=== PATIENT | male | born 1950 | race Caucasian/White ===

== ENCOUNTER 2016-11-20 13:42 | Inpatient (IN) | payer OTHER, MEDICARE ==
[2016-11-20] MEDS ORDERED: MORPHINE SULFATE 4 MG/ML SYRINGE IV STA (14:05)
[2016-11-20] MEDS ORDERED: ASPIRIN 81 MG CHEW PO STA (14:12)
--- NOTE | 2016-11-20 14:12 | ED ---
Chest Pain HPI - General Chief Complaint: Chest Pain Stated Complaint: Chest Pain Time Seen by Provider: 11/20/16 13:56 Source: patient Mode of arrival: wheelchair Limitations: no limitations - History of Present Illness Initial Comments: Patient complains of chest pain. The pain is primarily in the center of the chest and wraps around his chest like a band tightening around him. The pain also radiates to the left arm. Patient was given aspirin and nitro prior to arrival with no change in his symptoms. He rates the pain 6/10. He has no nausea, vomiting. He does have shortness of breath. He has no pain or swelling the legs. He has no palpitations. He denies any recent long plane or cards. He has not traveled anywhere. He has no headache. He has no lightheadedness or dizziness. He has had no syncopal or presyncope episodes. - Related Data Home Medications Medication Instructions Recorded Confirmed ARIPiprazole [Abilify] 5 mg PO DAILY 11/03/14 11/20/16 Citalopram Hydrobromide 40 mg PO DAILY 11/03/14 11/20/16 [Citalopram HBr] Saxagliptin HCl [Onglyza] 5 mg PO DAILY 11/03/14 11/20/16 metFORMIN HCL 1,000 mg PO BID 11/03/14 11/20/16 Ascorbic Acid [Vitamin C] 500 mg PO DAILY 01/17/16 11/20/16 Cholecalciferol [Vitamin D3] 2,000 unit PO DAILY 01/17/16 11/20/16 Gemfibrozil [Lopid] 600 mg PO AC-BID 01/17/16 11/20/16 Insulin Detemir [Levemir] 75 unit SQ BID 01/17/16 11/20/16 Atorvastatin [Lipitor] 40 mg PO HS 07/02/16 11/20/16 HYDROcodone/APAP 7.5-325MG [[place] 1 tab PO Q8H PRN 07/02/16 11/20/16 7.5-325] Lisinopril [Zestril] 10 mg PO BID 07/02/16 11/20/16 Metoprolol Tartrate [Lopressor] 25 mg PO BID 07/02/16 11/20/16 [place]-3 Fatty Acids/Fish Oil [Fish 1 cap PO DAILY 07/02/16 11/20/16 Oil 1,000 mg Softgel] Prazosin HCl 2 mg PO HS 07/02/16 11/20/16 Ticagrelor [Brilinta] 90 mg PO BID 07/02/16 11/20/16 traZODone HCL 150 mg PO HS 07/02/16 11/20/16 Aspirin EC [Ecotrin Low Dose] 81 mg PO DAILY 11/20/16 11/20/16 Bisoprolol Fumarate [Zebeta] 5 mg PO DAILY 11/20/16 11/20/16 Budesonide/Formoterol Fumarate 2 puff INHALATION BID 11/20/16 11/20/16 [Symbicort 80-4.5 Mcg Inhaler] Colchicine 0.6 mg PO DAILY 11/20/16 11/20/16 Hydrochlorothiazide [Hydrodiuril] 25 mg PO HS 11/20/16 11/20/16 Insulin Aspart [NovoLOG] 10 - 12 unit SQ AC-TID 11/20/16 11/20/16 Isosorbide Mononitrate ER [Imdur] 30 mg PO DAILY 11/20/16 11/20/16 Montelukast [Singulair] 10 mg PO HS 11/20/16 11/20/16 Allergies Allergy/AdvReac Type Severity Reaction Status Date / Time No Known Allergies Allergy Verified 11/20/16 14:27 Review of Systems ROS Statement: Those systems with pertinent positive or pertinent negative responses have been documented in the HPI. ROS Other: All systems not noted in ROS Statement are negative. EKG Findings - EKG Comments: EKG Findings:: Twelve-lead EKG obtained interpreted by me as showing ventricular rate 71 bpm, normal AR interval and QRS complex is, no ST elevation or depression, interpreted by me as normal sinus rhythm. Past Medical History Past Medical History: Diabetes Mellitus, Hypertension, Myocardial Infarction ([place] ), Sleep Apnea/CPAP/BIPAP, Syncope Additional Past Medical History / Comment(s): sleep apnea with CPAP History of Any Multi-Drug Resistant Organisms: None Reported Past Surgical History: Heart Catheterization With Stent, Hernia Repair, Orthopedic Surgery, Tonsillectomy Additional Past Surgical History / Comment(s): eye lid, pioniel cyst, lasik, bilateral knee sx Past Anesthesia/Blood Transfusion Reactions: No Reported Reaction Past Psychological History: Bipolar, Depression Smoking Status: Former smoker Past Alcohol Use History: None Reported Additional Past Alcohol Use History / Comment(s): smoking: started 1966 stopped 11/17, 1ppd Past Drug Use History: None Reported - Past Family History Mother Family Medical History: Coronary Artery Disease (CAD) Father Family Medical History: Coronary Artery Disease (CAD) Additional Family Medical History / Comment(s): emphysema General Exam Limitations: no limitations General appearance: alert, in no apparent distress Head exam: Present: atraumatic, normocephalic, normal inspection Eye exam: Present: normal appearance, PERRL, EOMI. Absent: scleral icterus, conjunctival injection, periorbital swelling ENT exam: Present: normal exam, mucous membranes moist Neck exam: Present: normal inspection. Absent: tenderness, meningismus, lymphadenopathy Respiratory exam: Present: normal lung sounds bilaterally. Absent: respiratory distress, wheezes, rales, rhonchi, stridor Cardiovascular Exam: Present: regular rate, normal rhythm, normal heart sounds. Absent: systolic murmur, diastolic murmur, rubs, gallop, clicks GI/Abdominal exam: Present: soft, tenderness, normal bowel sounds. Absent: distended, guarding, rebound, rigid Extremities exam: Present: normal inspection, full ROM, normal capillary refill. Absent: tenderness, pedal edema, joint swelling, calf tenderness Back exam: Present: normal inspection Neurological exam: Present: alert, oriented X3, CN II-XII intact Psychiatric exam: Present: normal affect, normal mood Skin exam: Present: warm, dry, intact, normal color. Absent: rash Course Vital Signs 11/20/16 11/20/16 11/20/16 13:45 14:19 15:13 Temperature 96.9 F L Pulse Rate 79 76 74 Respiratory 18 17 17 Rate Blood Pressure 161/77 167/79 170/72 O2 Sat by Pulse 98 98 Oximetry Chest Pain MDM - [facility] Patient complains of chest pain. On examination he has some mild abdominal tenderness. I wrote her studies reveal a negative troponin, however he does have an elevated lipase. Patient will be admitted to the hospital. Disposition Clinical Impression: Pancreatitis Disposition: ADMITTED IP TO THIS [facility] Condition: Fair Time of Disposition: 16:26
[2016-11-20 14:25] LABS: Basophils % (A) 1 %; CHCM 34.4; Eosinophils # (A) 0.2 k/uL (0-0.7); Eosinophils % (A) 3 %; HCT 31.7 % (39.0-53.0); HDW 2.91; HGB 10.4 gm/dL (13.0-17.5); Luc # (Auto) 0.22; Luc % (Auto) 4; Lymphocytes # (A) 1.2 k/uL (1.0-4.8); Lymphocytes % (A) 19 %; MCH 28.7 pg (25.0-35.0); MCHC 32.7 g/dL (31.0-37.0); MCV 87.7 fL (80.0-100.0); Monocytes # (A) 0.6 k/uL (0-1.0); Monocytes % (A) 10 %; Neutrophils # (A) 3.9 k/uL (1.3-7.7); Neutrophils % (A) 63 %; RBC 3.62 m/uL (4.30-5.90); RDW 13.7 % (11.5-15.5); WBC 6.1 k/uL (3.8-10.6); WBC (Perox) 6.22
[2016-11-20 14:37] LABS: ALT 53 U/L (21-72); AST 35 U/L (17-59); Alkaline Phosphatase 139 U/L (38-126); Anion Gap 15 mmol/L; Blood Urea Nitrogen 23 mg/dL (9-20); Calcium 9.7 mg/dL (8.4-10.2); Carbon Dioxide 21 mmol/L (22-30); Chloride 104 mmol/L (98-107); Glucose 169 mg/dL (74-99); Magnesium 1.3 mg/dL (1.6-2.3); Non-African American GFR(MDRD) >60 (>60 ml/min/1.73 sqM); Potassium 4.4 mmol/L (3.5-5.1); Sodium 140 mmol/L (137-145); Total Bilirubin 0.5 mg/dL (0.2-1.3); Total Protein 7.5 g/dL (6.3-8.2)
[2016-11-20 14:39] LABS: Partial Thromboplastin Time 24.2 sec (22.0-30.0); Prothrombin Time 10.2 sec (9.0-12.0)
--- NOTE | 2016-11-20 14:55 | XR ---
EXAMINATION TYPE: XR chest 2V DATE OF EXAM: 11/20/2016 2:43 PM COMPARISON: 08/08/2016 HISTORY: Shortness of breath TECHNIQUE: Frontal and lateral views of the chest are obtained. FINDINGS: Scattered senescent parenchymal changes noted. Hyperinflation compatible with COPD. No evidence for infiltrate. No evidence for atelectasis. Heart size is stable. Mediastinal structures are stable and grossly unremarkable. No evidence for hilar prominence. Degenerative changes dorsal spine. IMPRESSION: 1. No evidence for acute pulmonary disease.
[2016-11-20] MEDS ORDERED: ONDANSETRON 4 MG/2 ML VIAL IVP PRN (16:26)
[2016-11-20] MEDS ORDERED: NALOXONE 0.4 MG/ML 1 ML VIAL IV PRN (16:26)
[2016-11-20] MEDS ORDERED: MORPHINE SULFATE 4 MG/ML SYRINGE IV PRN (16:26)
[2016-11-20] MEDS: SODIUM CHLORIDE 0.9% 1,000 ML IV SCH ×2 (16:52→23:40)
--- NOTE | 2016-11-20 18:11 | CT ---
EXAMINATION TYPE: CT abdomen pelvis w con DATE OF EXAM: 11/20/2016 5:12 PM COMPARISON: November 03, 2014 HISTORY: Pt states of abdominal pain today. CT DLP: 1609.2 mGycm Automated exposure control for dose reduction was used. TECHNIQUE: Helical acquisition of images was performed from the lung bases through the pelvis. CONTRAST: Performed without Oral Contrast and with IV Contrast, patient injected with 100 mL of Omnipaque 300. FINDINGS: LUNG BASES: No significant abnormality is appreciated. LIVER/GB: No significant abnormality is appreciated, but cholelithiasis is noted. PANCREAS: No significant abnormality is seen. SPLEEN: No significant abnormality is seen. ADRENALS: No significant abnormality is seen. KIDNEYS: There are bilateral 1 to 4 mm nonobstructing calcifications within the upper collecting syst ems. No significant renal abnormality is seen. RETROPERITONEAL ADENOPATHY: None visualized REPRODUCTIVE ORGANS: No significant abnormality is seen URINARY BLADDER: No significant abnormality is seen. PELVIC ADENOPATHY: None visualized. OSSEOUS STRUCTURES: No significant abnormality is seen. BOWEL: No significant abnormality is seen. Colonic diverticulosis noted, but no diverticulitis. OTHER: Coronary calcifications are noted. IMPRESSION: NO ACUTE PROCESS, CT ABDOMEN AND PELVIS WITH CONTRAST.
[2016-11-20] MEDS ORDERED: INSULIN LISPRO (humaLOG) 300 UNIT/3 ML VIAL SQ ONE (18:12)
[2016-11-20 18:13] LABS: Glucose,Whole Blood 155 mg/dL (75-99)
[2016-11-20] MEDS: GEMFIBROZIL 600 MG TAB PO SCH (19:38)
[2016-11-20] MEDS: SYMBICORT 80-4.5 MCG INHALER INHALATION SCH (19:53)
[2016-11-20 21:38] LABS: Glucose,Whole Blood 213 mg/dL (75-99)
[2016-11-20] MEDS: FAMOTIDINE 20 MG TAB PO SCH (21:47)
[2016-11-20] MEDS: HYDROCHLOROTHIAZIDE 25 MG TAB PO SCH (21:47)
[2016-11-20] MEDS: TICAGRELOR 90 MG TAB PO SCH (21:47)
[2016-11-20] MEDS: PRAZOSIN 1 MG CAP PO SCH (21:47)
[2016-11-20] MEDS: metFORMIN 500 MG TAB PO SCH (21:47)
[2016-11-20] MEDS: INSULIN DETEMIR 100 UNIT/ML 10 ML VIAL SQ SCH (21:48)
[2016-11-20] MEDS: METOPROLOL TARTRATE 25 MG TAB PO SCH (21:48)
[2016-11-20] MEDS: LISINOPRIL 10 MG TAB PO SCH (21:48)
[2016-11-20] MEDS: INSULIN LISPRO (humaLOG) 300 UNIT/3 ML VIAL SQ SCH (21:48)
[2016-11-20] MEDS: MONTELUKAST 10 MG TAB PO SCH (21:48)
[2016-11-20] MEDS ORDERED: HYDROcodone/APAP 7.5-325MG 1 EACH TAB PO PRN (22:20)
[2016-11-20] MEDS: traZODone HCL 50 MG TAB PO SCH (22:45)
[2016-11-20] MEDS: ATORVASTATIN 40 MG TAB PO SCH (22:45)
[2016-11-20 23:10] LABS: Hemoglobin A1C 8.2 % (4.2-6.1)
[2016-11-21 07:01] LABS: Glucose,Whole Blood 134 mg/dL (75-99)
--- NOTE | 2016-11-21 08:32 | US ---
EXAMINATION TYPE: US gallbladder DATE OF EXAM: 11/21/2016 8:00 AM COMPARISON: NONE CLINICAL HISTORY: pancreatitis. Chest pain EXAM MEASUREMENTS: Liver Length: 19.5 cm Gallbladder Wall: 0.2 cm CBD: 0.4 cm Right Kidney: 13.6 x 6.5 x 7.2 cm TECHNOLOGIST IMPRESSION: Enlarged, echogenic, attenuating liver; polyps and a stone seen in gallblad otoniel. Pancreas: not well defined Liver: enlarged, echogenic, attenuating Gallbladder: 2 small polyps seen, stone in neck Evidence for sonographic Roy's sign: yes CBD: wnl Right Kidney: No hydronephrosis or masses seen IMPRESSION: 1. Hepatomegaly and fatty infiltration of the liver. 2. Cholelithiasis and polyps within the gallbladder. 3. Echogenic pancreas may reflect fatty infiltration.
[2016-11-21] MEDS: INSULIN LISPRO (humaLOG) 300 UNIT/3 ML VIAL SQ SCH ×4 (08:45→22:15)
[2016-11-21] MEDS: metFORMIN 500 MG TAB PO SCH ×2 (08:49→22:15)
[2016-11-21] MEDS: LISINOPRIL 10 MG TAB PO SCH ×2 (08:49→22:15)
[2016-11-21] MEDS: METOPROLOL TARTRATE 25 MG TAB PO SCH ×2 (08:49→22:16)
[2016-11-21] MEDS: GEMFIBROZIL 600 MG TAB PO SCH ×2 (08:49→17:45)
[2016-11-21] MEDS: CHOLECALCIFEROL 1,000 UNIT TAB PO SCH (08:49)
[2016-11-21] MEDS: COLCHICINE 0.6 MG TAB PO SCH (08:49)
[2016-11-21] MEDS: BISOPROLOL 5 MG TAB PO SCH (08:49)
[2016-11-21] MEDS: ASCORBIC ACID 500 MG TAB PO SCH (08:50)
[2016-11-21] MEDS: CITALOPRAM HYDROBROMIDE 20 MG TAB PO SCH (08:50)
[2016-11-21] MEDS: LINAGLIPTIN 5 MG TABLET PO SCH (08:50)
[2016-11-21] MEDS: ARIPiprazole 5 MG TAB PO SCH (08:50)
[2016-11-21] MEDS: TICAGRELOR 90 MG TAB PO SCH ×2 (08:50→22:16)
[2016-11-21] MEDS: FAMOTIDINE 20 MG TAB PO SCH ×2 (08:50→22:14)
[2016-11-21] MEDS: ASPIRIN 81 MG CHEW PO SCH (08:50)
[2016-11-21 08:53] LABS: Basophils % (A) 1 %; CH 29.5; CHCM 33.6; Eosinophils # (A) 0.2 k/uL (0-0.7); Eosinophils % (A) 4 %; HDW 2.89; HGB 10.7 gm/dL (13.0-17.5); Luc % (Auto) 4; Lymphocytes # (A) 0.9 k/uL (1.0-4.8); Lymphocytes % (A) 17 %; MCH 28.7 pg (25.0-35.0); MCHC 32.5 g/dL (31.0-37.0); MCV 88.2 fL (80.0-100.0); Mean Platelet Volume 6.8; Monocytes # (A) 0.5 k/uL (0-1.0); Monocytes % (A) 9 %; Neutrophils # (A) 3.5 k/uL (1.3-7.7); Neutrophils % (A) 66 %; RBC 3.74 m/uL (4.30-5.90); RDW 13.5 % (11.5-15.5); WBC 5.4 k/uL (3.8-10.6); WBC (Perox) 5.81
[2016-11-21] MEDS: INSULIN DETEMIR 100 UNIT/ML 10 ML VIAL SQ SCH ×2 (08:57→22:14)
[2016-11-21] MEDS ORDERED: ISOSORBIDE MONONITRATE ER 30 MG TAB.ER.24H PO SCH (09:00)
[2016-11-21 09:15] LABS: ALT 54 U/L (21-72); AST 31 U/L (17-59); Alkaline Phosphatase 83 U/L (38-126); Anion Gap 12 mmol/L; Blood Urea Nitrogen 20 mg/dL (9-20); Calcium 9.6 mg/dL (8.4-10.2); Carbon Dioxide 23 mmol/L (22-30); Chloride 108 mmol/L (98-107); Glucose 140 mg/dL (74-99); Non-African American GFR(MDRD) >60 (>60 ml/min/1.73 sqM); Potassium 4.3 mmol/L (3.5-5.1); Sodium 143 mmol/L (137-145); Total Bilirubin 0.3 mg/dL (0.2-1.3)
--- NOTE | 2016-11-21 09:39 | HP ---
DATE OF ADMISSION: 11/20/2016 DATE OF SERVICE: 11/20/2016 CHIEF COMPLAINT: Chest pain and abdominal pain. HISTORY OF PRESENT ILLNESS: This 66-year-old gentleman with a past medical history of multiple medical problems including atrial fibrillation, coronary artery disease, COPD, diabetes mellitus, hypertension, history of sleep apnea, history of coronary artery disease and stent and bipolar depression, being followed by Dr. Coby Fuentes in [place] in [place] and Dr. Fierro in the outpatient setting is complaining of abdominal pain just felt in the mid-part of the abdomen, which is radiating to the back. Patient also complains of chest pain, which is wrapping around the chest and like a band tightening and the pain was 6/10 in intensity. Patient came to [facility] and admitted for further evaluation and treatment. There is no history of any fever, rigors. No history of headache, loss of consciousness or seizures. PAST MEDICAL HISTORY: Atrial fibrillation, CAD, COPD, diabetes mellitus type 2, hypertension, pneumonia, sleep apnea, syncope, CAD, stent, bipolar, depression. Medications prior to admission include home medications are: 1. Symbicort 2 puffs b.i.d. 2. Trazodone 150 mg q.h.s. 3. Metformin 1000 mg p.o. b.i.d. 4. Brilinta 90 mg p.o. b.i.d. 5. Onglyza 5 mg p.o. daily. 6. Prazosin 2 mg p.o. q.h.s. 7. Fish oil 1 p.o. daily. 8. Singulair 10 mg q.h.s. 9. Lopressor 25 mg b.i.d. 10. Zestril 10 mg b.i.d. 11. Imdur 30 mg daily. 12. Levemir 75 mg subcu b.i.d. 13. NovoLog 10 to 12 subcu t.i.d. 14. HydroDIURIL 25 mg q.h.s. 15. [place] 7.5 q.8 p.r.n. 16. Lopid 600 mg a.c. b.i.d. 17. Colchicine 0.6 daily. 18. Celexa 40 mg p.o. daily. 19. Vitamin D3 2000 daily. 20. Zebeta 5 mg p.o. daily. 21. Lipitor 40 mg q.h.s. 23. Vitamin C 500 mg p.o. daily. ALLERGIES: None. FAMILY HISTORY: History of coronary artery disease and emphysema in the family. SOCIAL HISTORY: Previous history of smoking. No history of current smoking or alcohol. REVIEW OF SYSTEMS: ENT: No diminished hearing or vision. CARDIOVASCULAR: As mentioned earlier. RESPIRATORY: No cough or hemoptysis. GI: As mentioned earlier. : No dysuria. NERVOUS SYSTEM: No numbness or weakness. ALLERGY/IMMUNOLOGY: No asthma or hayfever. MUSCULOSKELETAL: As mentioned earlier. HEMATOLOGY/ONCOLOGY: No history of anemia. ENDOCRINE: History of diabetes mellitus. CONSTITUTIONAL: As mentioned earlier. DERMATOLOGY: Negative. RHEUMATOLOGY: Negative. PSYCHIATRY: As mentioned earlier. PHYSICAL EXAMINATION: Alert and oriented x3. Pulse 79, blood pressure 183/86, respiratory rate 18, temperature 96.1, pulse ox 96% on 2 liters. HEENT: Conjunctivae normal. Oral mucosa moist. NECK: No jugular venous distention. No carotid bruit. No lymph node enlargement. CARDIOVASCULAR: S1 and S2 heard. No S3, no S4. RESPIRATORY: Breath sounds diminished at the bases. No rhonchi, no crackles. ABDOMEN: Soft, obese, mild diffuse tenderness on palpation. No guarding or rigidity. Bowel sounds present. No ascites. No hepatosplenomegaly. LEGS: No edema, no swelling. NERVOUS SYSTEM: Higher function as mentioned earlier. Moves all four limbs. No focal motor deficits. LYMPHATIC: No lymphadenopathy in the neck, axillae or groin. SKIN: No ulcer, rash or bleeding. LABS: WBC 6.1, hemoglobin 10.4, BUN is 10, glucose 155, alk phos 139, lipase 1000 and. ASSESSMENT: 1. Abdominal pain, chest pain for evaluation, rule out acute pancreatitis. 2. Rule out acute coronary artery disease. 3. Hypomagnesemia. 4. Anemia, normocytic, anemia of chronic disease. 5. Obesity, body mass index of 33.6. 6. Atrial fibrillation. 7. Coronary artery disease. 8. Chronic obstructive pulmonary disease. 9. Diabetes mellitus type 2. 10. Hypertension. 11. History of pneumonia. 12. History of sleep apnea. 13. Syncope. 14. History of nephrolithiasis. 15. History of gout. 16. History of coronary artery disease and stent. 17. Bipolar depression. 18. Remote history nicotine dependence. 19. FULL CODE. RECOMMENDATIONS AND DISCUSSION: In this 66-year-old gentleman who presented with multiple complex medical issues, will monitor the patient closely. Continue the current medications. I will add amylase to the current regimen. I would also get a gastroenterology and cardiology consultations. EKG is reviewed. CT scan showed no acute process. The overall prognosis is guarded because of multiple complex medical issues as described earlier. Further recommendations to follow. EKG showed normal sinus rhythm with no other acute abnormalities suggestive of acute coronary syndrome. Will resume the home medications as well. SHANNEN
[2016-11-21] MEDS: SYMBICORT 80-4.5 MCG INHALER INHALATION SCH ×2 (09:42→20:23)
[2016-11-21 12:11] LABS: Glucose,Whole Blood 126 mg/dL (75-99)
[2016-11-21] MEDS: SODIUM CHLORIDE 0.9% 1,000 ML IV SCH ×3 (12:11→22:39)
[2016-11-21] MEDS ORDERED: ISOSORBIDE MONONITRATE ER 60 MG TAB.ER.24H PO STA (12:29)
--- NOTE | 2016-11-21 13:42 | P.CONS ---
History of Present Illness - Reason for Consult Consult date: 11/21/16 Pancreatitis Requesting physician: José Miguel Sauceda - History of Present Illness 66-year-old gentleman patient of Dr. Fierro with a past medical history of bipolar disorder, atrial fibrillation maintained on Brilinta and baby ASA, CAD, COPD, diabetes, hypertension, sleep apnea, nephrolithiasis, depression, shingles , and suicidal ideations. Consultation requested for pancreatitis. Presents with mid sternal/epigastric sharp pressure-like pain radiating to the bilateral abdomen wrapping around his upper back that started yesterday while he was attending cardiac rehab. He has had multiple episodes of this type of pain on- and-off for the last several months. Denies fever, chills, change in color of his urine or stool. No weight loss. Denies hematemesis, hematochezia, or melena. No history of alcoholism, hepatitis, or pancreatitis. Recently placed on Singulair and a different inhaler. CT abdomen and pelvis reported no acute process. Ultrasound abdomen reported enlarged echogenic attenuating liver with gallbladder polyps and stone gallbladder neck. CBD within normal limits. Echogenic pancreas may reflect fatty infiltration. White count 6.1. Hemoglobin 10.4. INR 1.0. Lipase 1000 currently 335. Amylase 89. LFTs total bilirubin normal. Review of Systems Constitutional: Denies fever, chills, sweats, weight gain, or loss. HEENT: Negative for migraines, blurred vision or loss, earaches, drainage, tinnitus, oral mucosal lesions, dysphagia, or odynophagia. Cardiac: Atrial fibrillation, CAD, hypertension. Respiratory: COPD. Negative for shortness of breath, hemoptysis, cough, or sputum production. Gastrointestinal: See HPI for pertinent findings. Genitourinary: Negative for hematuria, urgency, frequency, polyuria, dysuria, or penile discharge. History of nephrolithiasis. Musculoskeletal: Negative for muscle aches, swelling, arthritis, and arthralgias. Neurologic: Negative for stroke or TIA. Endocrine: Diabetes mellitus. Negative for thyroid problems. Skin: Negative for rash or itching. Psychiatric: History of depression bipolar suicidal ideation. All systems: negative (See HPI) Past Medical History Past Medical History: Atrial Fibrillation, Coronary Artery Disease (CAD), COPD, Diabetes Mellitus, Hypertension, Pneumonia, Sleep Apnea/CPAP/BIPAP, Syncope Additional Past Medical History / Comment(s): sleep apnea with CPAP, KIDNEY STONES, GOUT, CATARACTS_HAD LASIK SX, BIPOLAR DEPRESSION.has had shingles vaccine 2015 History of Any Multi-Drug Resistant Organisms: None Reported Past Surgical History: Heart Catheterization With Stent, Hernia Repair, Orthopedic Surgery, Tonsillectomy Additional Past Surgical History / Comment(s): eye lid cyst removed,, pilonidal cyst, lasik, bilateral knee sx,LITHOTRIPSY, COLONOSCOPY,05-15-16 at [facility] had heart cath w/1 stent then again 05-21-16 had 2 more stents. Past Anesthesia/Blood Transfusion Reactions: No Reported Reaction Date of Last Stent Placement:: 05-21-16 Past Psychological History: Bipolar, Depression Additional Psychological History / Comment(s): at time of this admit asked pt if he currently is depressed or have any thoughts of harming self-he stated no" asked if he currently feels maintained on meds stated "yes". pt admitted to 5 past suicide attempts. pt lives at home with his common law ekaterina. pt served in the [employer] for 8 years. 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 Smoking Status: Former smoker Past Alcohol Use History: None Reported Additional Past Alcohol Use History / Comment(s): started smoking at age 16(1965 ) stopped at age 65() smoked, 1ppd. Past Drug Use History: None Reported - Past Family History Mother Family Medical History: Coronary Artery Disease (CAD) Father Family Medical History: Coronary Artery Disease (CAD) Additional Family Medical History / Comment(s): emphysema Medications and Allergies Home Medications Medication Instructions Recorded Confirmed Type ARIPiprazole [Abilify] 5 mg PO DAILY 11/03/14 11/20/16 History Citalopram Hydrobromide 40 mg PO DAILY 11/03/14 11/20/16 History [Citalopram HBr] Saxagliptin HCl [Onglyza] 5 mg PO DAILY 11/03/14 11/20/16 History metFORMIN HCL 1,000 mg PO BID 11/03/14 11/20/16 History Ascorbic Acid [Vitamin C] 500 mg PO DAILY 01/17/16 11/20/16 History Cholecalciferol [Vitamin D3] 2,000 unit PO DAILY 01/17/16 11/20/16 History Gemfibrozil [Lopid] 600 mg PO AC-BID 01/17/16 11/20/16 History Insulin Detemir [Levemir] 75 unit SQ BID 01/17/16 11/20/16 History Atorvastatin [Lipitor] 40 mg PO HS 07/02/16 11/20/16 History HYDROcodone/APAP 7.5-325MG [[place] 1 tab PO Q8H PRN 07/02/16 11/20/16 History 7.5-325] Lisinopril [Zestril] 10 mg PO BID 07/02/16 11/20/16 History Metoprolol Tartrate [Lopressor] 25 mg PO BID 07/02/16 11/20/16 History [place]-3 Fatty Acids/Fish Oil [Fish 1 cap PO DAILY 07/02/16 11/20/16 History Oil 1,000 mg Softgel] Prazosin HCl 2 mg PO HS 07/02/16 11/20/16 History Ticagrelor [Brilinta] 90 mg PO BID 07/02/16 11/20/16 History traZODone HCL 150 mg PO HS 07/02/16 11/20/16 History Aspirin EC [Ecotrin Low Dose] 81 mg PO DAILY 11/20/16 11/20/16 History Bisoprolol Fumarate [Zebeta] 5 mg PO DAILY 11/20/16 11/20/16 History Budesonide/Formoterol Fumarate 2 puff INHALATION BID 11/20/16 11/20/16 History [Symbicort 80-4.5 Mcg Inhaler] Colchicine 0.6 mg PO DAILY 11/20/16 11/20/16 History Hydrochlorothiazide [Hydrodiuril] 25 mg PO HS 11/20/16 11/20/16 History Insulin Aspart [NovoLOG] 10 - 12 unit SQ AC-TID 11/20/16 11/20/16 History Isosorbide Mononitrate ER [Imdur] 30 mg PO DAILY 11/20/16 11/20/16 History Montelukast [Singulair] 10 mg PO HS 11/20/16 11/20/16 History Allergies Allergy/AdvReac Type Severity Reaction Status Date / Time No Known Allergies Allergy Verified 11/20/16 14:27 Physical Exam Vitals: Vital Signs Temp Pulse Pulse Pulse Resp BP BP 11/21/16 08:00 19 11/21/16 07:00 96.2 F L 77 19 143/76 11/20/16 23:00 96.2 F L 79 16 149/78 11/20/16 19:48 96.1 F L 79 18 183/86 11/20/16 19:19 96.9 F L 82 17 175/82 11/20/16 18:16 77 17 188/96 Pulse Ox 11/21/16 08:00 11/21/16 07:00 97 11/20/16 23:00 96 11/20/16 19:48 96 11/20/16 19:19 97 11/20/16 18:16 95 Intake and Output 11/20/16 11/21/16 11/21/16 22:59 06:59 14:59 Output Total 200 2000 Balance -200 -2000 Output: Urine 200 2000 Other: Voiding Method Toilet Toilet Urinal Urinal Weight 106.367 kg Results CBC & Chem 7: 11/21/16 08:30 11/21/16 08:30 Labs: Abnormal Lab Results - Last 24 Hours (Table) 11/20/16 11/20/16 11/21/16 Range/Units 18:09 21:34 06:59 RBC (4.30-5.90) m/uL Hgb (13.0-17.5) gm/dL Hct (39.0-53.0) % Lymphocytes # (1.0-4.8) k/uL Chloride (98-107) mmol/L Glucose (74-99) mg/dL POC Glucose (mg/dL) 155 H 213 H 134 H (75-99) mg/dL Lipase (23-300) U/L 11/21/16 11/21/16 11/21/16 Range/Units 08:30 08:30 12:10 RBC 3.74 L (4.30-5.90) m/uL Hgb 10.7 L (13.0-17.5) gm/dL Hct 33.0 L (39.0-53.0) % Lymphocytes # 0.9 L (1.0-4.8) k/uL Chloride 108 H (98-107) mmol/L Glucose 140 H (74-99) mg/dL POC Glucose (mg/dL) 126 H (75-99) mg/dL Lipase 335 H (23-300) U/L CT scan - abdomen: report reviewed CT scan - pelvis: report reviewed US - abdomen: report reviewed (Reviewed by Dr. Marcum) Assessment and Plan (1) Acute pancreatitis Narrative/Plan: 66-year-old gentleman presents with acute midsternal epigastric pain radiating to his upper back with elevated lipase consistent with acute pancreatitis with radiographic imaging suggestive of cholelithiasis, gallbladder polyps, and possible changes of chronic pancreatitis. Etiology of pancreatitis is unclear possible passage of microlithiasis even though transaminases were within normal limits. Status: Acute (2) Cholelithiasis Status: Acute Plan: 1. Will check triglyceride and subclass IG4. 2. Enzymes are improving he is currently without abdominal pain will advance to low-fat diet for dinner. 3. Follow closely with you. Thank you for this kind referral and the opportunity to participate in the care of your patient. This consultation was discussed with Dr. Marcum. The impression and plan of care have been directed as dictated.
[2016-11-21 15:35] LABS: Triglycerides 273 mg/dL (<150)
--- NOTE | 2016-11-21 15:44 | CONS ---
DATE OF CONSULTATION: Patient admitted by Dr. Sauceda with chest pain and abdominal pain. Mr. Boone Rudolph is free of any abdominal or chest pain at present time. Patient presented to the hospital with recurrent chest heaviness and tightness. Also upper abdominal pain. The patient was found to have elevated lipase of 1000 units being treated for acute pancreatitis. Patient is also known to have multiple medical problems and history of smoking, quit smoking in November 2015. The patient is a diabetic, morbid exogenous obesity, chronic atrial fibrillation and hypertension, sleep apnea, history of coronary artery disease, history of bipolar depression. Patient had stents done at [facility] a year and a half ago, 3 stents, do not have the details of which was stented. The patient's symptoms suggestive of possible angina. Even though patient's symptoms are well controlled at present time, may require noninvasive studies to see severity of coronary artery disease and need for interventions whenever the patient is able to do it, probably a Lexiscan in this patient. Patient follows with Dr. Fierro as an outpatient. Patient is free of any abdominal pain or chest at the present time. On admission, patient did have chest pains up to 6/10 in intensity. Patient's cardiac enzymes times one is negative. EKGs do not show any acute ischemic changes. Past history remarkable for atrial fibrillation, COPD, CAD, sleep apnea, hypertension, diabetes mellitus, and bipolar depression and history of stenting. Patient's medications prior to admission include: 1. Symbicort 2 puffs b.i.d. 2. Trazadone 150 mg daily. 3. Metformin 1000 mg p.o. b.i.d. 4. Brilinta 90 mg p.o. b.i.d. 5. Onglyza 5 mg p.o. daily. 6. ( ) 2 mg p.o. q.h.s. 7. Fish oil capsules. 8. Singulair 10 mg. 9. Lopressor 25 mg p.o. daily. 10. Zestril 10 mg p.o. bid. 11. Imdur 30 mg. 12. Levemir 75 mg subcu b.i.d. 13. NovoLog 10 to 12 units subcu t.i.d. 14. HydroDIURIL 25 mg p.o. daily. 15. [place] 7.5 mg. 16. Lopid 600 mg p.o. b.i.d. 17. Colchicine 0.6 mg p.o. daily. 18. Celexa 40 mg p.o. daily. 19. Vitamin D3 2000 units daily. 20. ( ) 5 mg p.o. daily. 21. Lipitor 40 mg p.o. daily. Past history, review of systems as mentioned above. The patient's symptoms of chest pain has subsided. REVIEW OF SYSTEMS: Essentially unremarkable. On admission, patient had chest pain and abdominal pain. HEENT: Denies any different ( ) vision or hearing. RESPIRATORY SYSTEM: Admits to long-standing history of smoking, quit smoking about a year ago, approximately smoked for 59 years. CARDIOVASCULAR: History of angina, history of stenting. History of hypertension. GASTROINTESTINAL: History of abdominal pain as mentioned above. GENITOURINARY: Unremarkable. NEUROLOGIC: Unremarkable. PSYCHIATRIC: History of bipolar depression. Dermatologic unremarkable. Constitutional: Unremarkable. Physical examination revealed well-developed, well-nourished moderate to morbidly obese gentleman, not in acute distress with stable vital signs, pulse rate of 70 beats per minute and regular, blood pressure 146/70 mmHg. Respirations 20. Head normocephalic. HEENT unremarkable. Neck is supple. No thyroid enlargement. No bruit noted. Good carotid upstroke bilaterally. Chest is symmetrical. CARDIAC EXAMINATION: Regular rate and rhythm. S1 and S2. Lungs are clinically to auscultation and percussion. ABDOMEN: Soft. ( ) Obese. Mild diffuse tenderness is noted. Otherwise unremarkable. EXTREMITIES: Peripheral pulses. No pedal edema. SERVICE DESK LEAD examination: Grossly within normal limits. EKG revealed normal sinus rhythm, normal ST-T waves. Troponin x1 negative. ASSESSMENT: 1. Chest pain suggestive of possible angina. 2. Abnormal pain secondary to acute pancreatitis. 3. History of atherosclerotic heart disease with ( ) stenting. 4. Morbid exogenous obesity. 5. Chronic atrial fibrillation. 6. Chronic obstructive lung disease. 7. Diabetes mellitus. 8. Hypertension. 9. Hyperlipidemia. 10. Nephrolithiasis. RECOMMENDATIONS: We will get an echocardiogram to assess LV function and can go for a Lexiscan on Thursday as an outpatient basis and advised to follow with a rn intensive care unit, his own rn intensive care unit. If the patient has any abnormal Cardiolite scan in this hospital, we will do the cardiac catheterization. If the patient agrees. Otherwise he will go ahead and see his own rn intensive care unit, as patient's symptoms are controlled, we will increase the nitrates to 60 mg p.o. daily.
[2016-11-21 17:46] LABS: Glucose,Whole Blood 96 mg/dL (75-99)
--- NOTE | 2016-11-21 20:51 | PN ---
DATE OF SERVICE: 11/21/2016 This 66 -year-old gentleman admitted to the hospital with abdominal pain and features of abdominal pancreatitis also being evaluated by cardiology and gastroenterology also. Ultrasound showed hepatosplenomegaly with fatty infiltration, cholelithiasis with polyps in the gallbladder, pancreas may also represent fatty infiltration. Cardiology has seen the patient and recommended continued the current medication. Outpatient work-up and gastroenterology is also following the patient closely also. PAST MEDICAL HISTORY: Reviewed. REVIEW OF SYSTEMS: ntd. Patient is alert and oriented x3. Pulse is 62, blood pressure 140/69. Respiratory rate 20. Temperature 96.2. pulse ox 98% on room air. HEENT: Conjunctivae normal. NECK: No jugular venous distention. CARDIOVASCULAR: S1, S2 muffled. RESPIRATORY: Breath sounds diminished at the bases. No rhonchi, no crackles. ABDOMEN: Soft. Obese. Mild diffuse discomfort. No guarding. No rigidity. No mass palpable. LEGS: No edema. No swelling. Nervous system: No focal deficits. LABS: Hemoglobin 10.7. Otherwise, triglycerides 273 and lipase 335. ASSESSMENT: 1. Abdominal pain, possible acute pancreatitis. 2. Cholelithiasis, polyps in the gallbladder. 3. Fatty infiltration in the pancreas and liver. 4. Chest pain. Rule out acute coronary disease. 5. Hypomagnesemia. 6. Anemia, normocytic, anemia of chronic disease. 7. Obesity, body mass index of 33.6. 8. Atrial fibrillation paroxysmal. 9. Coronary artery disease. 10. Chronic obstructive pulmonary disease. 11. Diabetes mellitus type 2. 12. Hypertension. 13. History of pneumonia. 14. History of sleep apnea. 15. History of syncope. 16. History of nephrolithiasis. 17. History of gout. 18. History of coronary artery disease and stent. 19. Bipolar depression. 20. Remote history of nicotine dependence. 21. FULL CODE. RECOMMENDATIONS AND DISCUSSION: In this 66-year-old gentleman who presented with multiple complex medical issues, we will monitor the patient closely, continue the current medications, continue symptomatic treatment. Otherwise, I would also recommend a surgical consultation. Currently the patient is normal sinus rhythm. Closely follow with cardiology. Prognosis guarded because of multiple complex medical issues. Further recommendations to follow. MTDD
[2016-11-21 21:25] LABS: Glucose,Whole Blood 161 mg/dL (75-99)
[2016-11-21] MEDS: HYDROCHLOROTHIAZIDE 25 MG TAB PO SCH (22:14)
[2016-11-21] MEDS: ATORVASTATIN 40 MG TAB PO SCH (22:14)
[2016-11-21] MEDS: traZODone HCL 50 MG TAB PO SCH (22:16)
[2016-11-21] MEDS: MONTELUKAST 10 MG TAB PO SCH (22:16)
[2016-11-21] MEDS: PRAZOSIN 1 MG CAP PO SCH (22:16)
[2016-11-22 02:46] LABS: Glucose,Whole Blood 133 mg/dL (75-99)
[2016-11-22 07:41] LABS: Glucose,Whole Blood 96 mg/dL (75-99)
[2016-11-22 08:06] VITALS: BP 159/90; RESP 19; TEMP 96.1
[2016-11-22] MEDS: INSULIN LISPRO (humaLOG) 300 UNIT/3 ML VIAL SQ SCH (08:26)
[2016-11-22 08:35] LABS: Basophils % (A) 1 %; CH 29.4; CHCM 33.4; Eosinophils # (A) 0.2 k/uL (0-0.7); Eosinophils % (A) 4 %; HGB 10.5 gm/dL (13.0-17.5); Luc # (Auto) 0.17; Luc % (Auto) 4; Lymphocytes # (A) 0.9 k/uL (1.0-4.8); Lymphocytes % (A) 21 %; MCHC 32.7 g/dL (31.0-37.0); MCV 88.6 fL (80.0-100.0); Mean Platelet Volume 6.4; Monocytes # (A) 0.4 k/uL (0-1.0); Monocytes % (A) 9 %; Neutrophils # (A) 2.7 k/uL (1.3-7.7); Neutrophils % (A) 62 %; RBC 3.62 m/uL (4.30-5.90); RDW 13.7 % (11.5-15.5); WBC 4.3 k/uL (3.8-10.6); WBC (Perox) 4.68
[2016-11-22] MEDS: SYMBICORT 80-4.5 MCG INHALER INHALATION SCH (08:39)
[2016-11-22] MEDS ORDERED: ISOSORBIDE MONONITRATE ER 60 MG TAB.ER.24H PO SCH (09:00)
[2016-11-22 09:01] LABS: ALT 51 U/L (21-72); AST 37 U/L (17-59); Alkaline Phosphatase 69 U/L (38-126); Anion Gap 13 mmol/L; Blood Urea Nitrogen 16 mg/dL (9-20); Calcium 9.7 mg/dL (8.4-10.2); Carbon Dioxide 23 mmol/L (22-30); Chloride 109 mmol/L (98-107); Cholesterol 157 mg/dL (<200); Glucose 87 mg/dL (74-99); HDL Cholesterol 35 mg/dL (40-60); Non-African American GFR(MDRD) >60 (>60 ml/min/1.73 sqM); Potassium 4.2 mmol/L (3.5-5.1); Sodium 145 mmol/L (137-145); Total Bilirubin 0.3 mg/dL (0.2-1.3); Total Protein 7.1 g/dL (6.3-8.2); Triglycerides 255 mg/dL (<150)
[2016-11-22] MEDS: metFORMIN 500 MG TAB PO SCH (09:38)
[2016-11-22] MEDS: CHOLECALCIFEROL 1,000 UNIT TAB PO SCH (09:38)
[2016-11-22] MEDS: GEMFIBROZIL 600 MG TAB PO SCH (09:38)
[2016-11-22] MEDS: METOPROLOL TARTRATE 25 MG TAB PO SCH (09:38)
[2016-11-22] MEDS: TICAGRELOR 90 MG TAB PO SCH (09:38)
[2016-11-22] MEDS: COLCHICINE 0.6 MG TAB PO SCH (09:38)
[2016-11-22] MEDS: CITALOPRAM HYDROBROMIDE 20 MG TAB PO SCH (09:38)
[2016-11-22] MEDS: LINAGLIPTIN 5 MG TABLET PO SCH (09:39)
[2016-11-22] MEDS: ASPIRIN 81 MG CHEW PO SCH (09:39)
[2016-11-22] MEDS: BISOPROLOL 5 MG TAB PO SCH (09:39)
[2016-11-22] MEDS: FAMOTIDINE 20 MG TAB PO SCH (09:39)
[2016-11-22] MEDS: INSULIN DETEMIR 100 UNIT/ML 10 ML VIAL SQ SCH (09:40)
[2016-11-22] MEDS: LISINOPRIL 10 MG TAB PO SCH (09:40)
[2016-11-22] MEDS: ARIPiprazole 5 MG TAB PO SCH (09:40)
[2016-11-22] MEDS: ASCORBIC ACID 500 MG TAB PO SCH (09:41)
[2016-11-22] MEDS: SODIUM CHLORIDE 0.9% 1,000 ML IV SCH (09:44)
--- NOTE | 2016-11-22 11:17 | P.GSCN ---
History of Present Illness Consult date: 11/22/16 Reason for Consult: Gallstone pancreatitis History of present illness: This a 66-year-old male who's [facility] complaints of epigastric and chest pain. Patient's workup found evidence of gallstones patient has. Patient also shows evidence of cholelithiasis. His lipase on admission was approximately 1000. Patient states that since his admission his pain is resolved. He actually feels well today and is hungry. His lipase has dropped down to 300 range. Past Medical History Past Medical History: Atrial Fibrillation, Coronary Artery Disease (CAD), COPD, Diabetes Mellitus, Hypertension, Pneumonia, Sleep Apnea/CPAP/BIPAP, Syncope Additional Past Medical History / Comment(s): sleep apnea with CPAP, KIDNEY STONES, GOUT, CATARACTS_HAD LASIK SX, BIPOLAR DEPRESSION.has had shingles vaccine 2015 History of Any Multi-Drug Resistant Organisms: None Reported Past Surgical History: Heart Catheterization With Stent, Hernia Repair, Orthopedic Surgery, Tonsillectomy Additional Past Surgical History / Comment(s): eye lid cyst removed,, pilonidal cyst, lasik, bilateral knee sx,LITHOTRIPSY, COLONOSCOPY,05-15-16 at [facility] had heart cath w/1 stent then again 05-21-16 had 2 more stents. Past Anesthesia/Blood Transfusion Reactions: No Reported Reaction Date of Last Stent Placement:: 05-21-16 Past Psychological History: Bipolar, Depression Additional Psychological History / Comment(s): at time of this admit asked pt if he currently is depressed or have any thoughts of harming self-he stated no" asked if he currently feels maintained on meds stated "yes". pt admitted to 5 past suicide attempts. pt lives at home with his common law ekaterina. pt served in the [employer] for 8 years. 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 Smoking Status: Former smoker Past Alcohol Use History: None Reported Additional Past Alcohol Use History / Comment(s): started smoking at age 16(1965 ) stopped at age 65() smoked, 1ppd. Past Drug Use History: None Reported - Past Family History Mother Family Medical History: Coronary Artery Disease (CAD) Father Family Medical History: Coronary Artery Disease (CAD) Additional Family Medical History / Comment(s): emphysema Medications and Allergies Home Medications Medication Instructions Recorded Confirmed Type ARIPiprazole [Abilify] 5 mg PO DAILY 11/03/14 11/20/16 History Citalopram Hydrobromide 40 mg PO DAILY 11/03/14 11/20/16 History [Citalopram HBr] Saxagliptin HCl [Onglyza] 5 mg PO DAILY 11/03/14 11/20/16 History metFORMIN HCL 1,000 mg PO BID 11/03/14 11/20/16 History Ascorbic Acid [Vitamin C] 500 mg PO DAILY 01/17/16 11/20/16 History Cholecalciferol [Vitamin D3] 2,000 unit PO DAILY 01/17/16 11/20/16 History Gemfibrozil [Lopid] 600 mg PO AC-BID 01/17/16 11/20/16 History Insulin Detemir [Levemir] 75 unit SQ BID 01/17/16 11/20/16 History Atorvastatin [Lipitor] 40 mg PO HS 07/02/16 11/20/16 History HYDROcodone/APAP 7.5-325MG [[place] 1 tab PO Q8H PRN 07/02/16 11/20/16 History 7.5-325] Lisinopril [Zestril] 10 mg PO BID 07/02/16 11/20/16 History Metoprolol Tartrate [Lopressor] 25 mg PO BID 07/02/16 11/20/16 History [place]-3 Fatty Acids/Fish Oil [Fish 1 cap PO DAILY 07/02/16 11/20/16 History Oil 1,000 mg Softgel] Prazosin HCl 2 mg PO HS 07/02/16 11/20/16 History Ticagrelor [Brilinta] 90 mg PO BID 07/02/16 11/20/16 History traZODone HCL 150 mg PO HS 07/02/16 11/20/16 History Aspirin EC [Ecotrin Low Dose] 81 mg PO DAILY 11/20/16 11/20/16 History Bisoprolol Fumarate [Zebeta] 5 mg PO DAILY 11/20/16 11/20/16 History Budesonide/Formoterol Fumarate 2 puff INHALATION BID 11/20/16 11/20/16 History [Symbicort 80-4.5 Mcg Inhaler] Colchicine 0.6 mg PO DAILY 11/20/16 11/20/16 History Hydrochlorothiazide [Hydrodiuril] 25 mg PO HS 11/20/16 11/20/16 History Insulin Aspart [NovoLOG] 10 - 12 unit SQ AC-TID 11/20/16 11/20/16 History Isosorbide Mononitrate ER [Imdur] 30 mg PO DAILY 11/20/16 11/20/16 History Montelukast [Singulair] 10 mg PO HS 11/20/16 11/20/16 History Allergies Allergy/AdvReac Type Severity Reaction Status Date / Time No Known Allergies Allergy Verified 11/20/16 14:27 Surgical - Exam Vital Signs Temp Pulse Resp BP Pulse Ox 96.9 F L 79 18 161/77 98 11/20/16 13:45 11/20/16 13:45 11/20/16 13:45 11/20/16 13:45 11/20/16 13:45 - General well developed, no distress - Eyes PERRL - ENT normal pinna - Neck no masses - Respiratory normal expansion - Cardiovascular Rhythm: regular - Abdomen Abdomen: soft, non tender Results - Labs 11/22/16 08:02 11/22/16 08:02 Abnormal Lab Results - Last 24 Hours (Table) 11/21/16 11/21/16 11/21/16 Range/Units 08:30 12:10 21:18 RBC (4.30-5.90) m/uL Hgb (13.0-17.5) gm/dL Hct (39.0-53.0) % Lymphocytes # (1.0-4.8) k/uL Chloride 108 H (98-107) mmol/L Glucose 140 H (74-99) mg/dL POC Glucose (mg/dL) 126 H 161 H (75-99) mg/dL Triglycerides 273 H (<150) mg/dL HDL Cholesterol (40-60) mg/dL Lipase 335 H (23-300) U/L 11/22/16 11/22/16 11/22/16 Range/Units 02:31 08:02 08:02 RBC 3.62 L (4.30-5.90) m/uL Hgb 10.5 L (13.0-17.5) gm/dL Hct 32.0 L (39.0-53.0) % Lymphocytes # 0.9 L (1.0-4.8) k/uL Chloride 109 H (98-107) mmol/L Glucose (74-99) mg/dL POC Glucose (mg/dL) 133 H (75-99) mg/dL Triglycerides 255 H (<150) mg/dL HDL Cholesterol 35 L (40-60) mg/dL Lipase (23-300) U/L Diabetes panel 11/21/16 11/22/16 Range/Units 08:30 08:02 Sodium 143 145 (137-145) mmol/L Potassium 4.3 4.2 (3.5-5.1) mmol/L Chloride 108 H 109 H (98-107) mmol/L Carbon Dioxide 23 23 (22-30) mmol/L BUN 20 16 (9-20) mg/dL Creatinine 0.92 0.93 (0.66-1.25) mg/dL Glucose 140 H 87 (74-99) mg/dL Calcium 9.6 9.7 (8.4-10.2) mg/dL AST 31 37 (17-59) U/L ALT 54 51 (21-72) U/L Alkaline Phosphatase 83 69 (38-126) U/L Total Protein 7.0 7.1 (6.3-8.2) g/dL Albumin 4.4 4.3 (3.5-5.0) g/dL Triglycerides 273 H 255 H (<150) mg/dL HDL Cholesterol 35 L (40-60) mg/dL Calcium panel 11/21/16 11/22/16 Range/Units 08:30 08:02 Calcium 9.6 9.7 (8.4-10.2) mg/dL Albumin 4.4 4.3 (3.5-5.0) g/dL Pituitary panel 11/21/16 11/22/16 Range/Units 08:30 08:02 Sodium 143 145 (137-145) mmol/L Potassium 4.3 4.2 (3.5-5.1) mmol/L Chloride 108 H 109 H (98-107) mmol/L Carbon Dioxide 23 23 (22-30) mmol/L BUN 20 16 (9-20) mg/dL Creatinine 0.92 0.93 (0.66-1.25) mg/dL Glucose 140 H 87 (74-99) mg/dL Calcium 9.6 9.7 (8.4-10.2) mg/dL Adrenal panel 11/21/16 11/22/16 Range/Units 08:30 08:02 Sodium 143 145 (137-145) mmol/L Potassium 4.3 4.2 (3.5-5.1) mmol/L Chloride 108 H 109 H (98-107) mmol/L Carbon Dioxide 23 23 (22-30) mmol/L BUN 20 16 (9-20) mg/dL Creatinine 0.92 0.93 (0.66-1.25) mg/dL Glucose 140 H 87 (74-99) mg/dL Calcium 9.6 9.7 (8.4-10.2) mg/dL Total Bilirubin 0.3 0.3 (0.2-1.3) mg/dL AST 31 37 (17-59) U/L ALT 54 51 (21-72) U/L Alkaline Phosphatase 83 69 (38-126) U/L Total Protein 7.0 7.1 (6.3-8.2) g/dL Albumin 4.4 4.3 (3.5-5.0) g/dL Assessment and Plan Plan: Gallstone hepatitis. The patient's. His has improved. He will have his diet increased today. He'll be discharged home later today or tomorrow. We will plan for outpatient laparoscopic cholecystectomy.
[2016-11-22 11:21] VITALS: PULSE 79
[2016-11-22 11:32] LABS: Glucose,Whole Blood 151 mg/dL (75-99)
--- NOTE | 2016-11-23 12:59 | DS ---
DATE OF ADMISSION: 11/20/2016 DATE OF DISCHARGE: 11/22/2016 FINAL DIAGNOSES: 1. Abdominal pain, possible acute pancreatitis secondary to gallstone pancreatitis. 2. Cholelithiasis, polyps on the gallbladder. 3. Fatty infiltration of the pancreas and liver. 4. Chest pain, coronary artery disease ruled out. 5. History of recent coronary artery bypass grafting and stent. 6. Hypomagnesemia. 7. Anemia, normocytic anemia of chronic disease. 8. Obesity, body mass index 33.6. 9. Paroxysmal atrial fibrillation. 10. Coronary artery disease. 11. History of chronic obstructive pulmonary disease. 12. Type 2 diabetes mellitus. 13. Hypertension. 14. History of pneumonia. 15. History of sleep apnea. 16. History of syncope. 17. History of nephrolithiasis. 18. History of gout. 19. History of bipolar depression. 20. Remote history of nicotine dependence. 21. Hypertriglyceridemia, 22. FULL CODE. DISCHARGE DISPOSITION: The patient being discharged in stable condition with guarded prognosis. HISTORY OF PRESENT ILLNESS: This 66-year-old gentleman with a past medical history of multiple medical problems was admitted with abdominal pain and features of acute pancreatitis. The patient also had cholelithiasis and polyp in the gallbladder. Seen by surgery. Recommended outpatient follow-up and possible surgery. Improved significantly. Enzymes normalized to 133, lipase 136, triglycerides 255. Hemoglobin 10.5. On exam, vitals are stable. CARDIOVASCULAR SYSTEM: S1, S2 muffled. ABDOMEN: Soft. Nontender. Central nervous system: No focal deficits. DISCHARGE ADVICE AND MEDICATIONS: 1. Diet is cardiac low fat, low cholesterol. 2. Follow-up with Dr. Fierro in 1 to 2 days. 3. Follow up with Dr. Gutierrez as advised. 4. Follow up labs with Dr. Fierro. 5. Abilify 5 mg p.o. daily. 6. Vitamin C 500 mg p.o. daily. 7. Aspirin 81 mg daily. 8. Lipitor 40 mg q.h.s. 9. zebeta 5 mg p.o. daily. 10. Symbicort 2 puffs b.i.d. 11. Vitamin D3 2000 daily. 12. Celexa 40 mg p.o. daily. 13. Colchicine 0.6 daily. 14. Pepcid 20 mg p.o. b.i.d. 15. Lopid 600 mg b.i.d. 16. [place] 7.5 q.8 p.r.n. 17. HydroDIURIL 25 mg q.h.s. 18. Novolog scale 10 to 12 units a.c. t.i.d. 19. Levemir 75 units subcu b.i.d. 20. Imdur ER 30 mg daily. 21. Zestril 10 mg p.o. b.i.d. 22. Lopressor 20 mg p.o. b.i.d. 23. Singulair 10 mg q.h.s. 24. [place]-3 fatty acid 1 daily. 25. prazosin 2 mg at bedtime. 26. Onglyza 5 mg b.i.d. 27. Brilinta 90 mg p.o. b.i.d. 28. Metformin 1000 mg daily. 29. Trazodone 150 q.h.s. Once again, the patient will be discharged in stable condition with guarded prognosis. MTDD
== END 2016-11-22 14:57 | disposition home or self-care (01) | DRG 440 ==
LOC: EC 13:42 → 3SUR 16:26 → 4MS4W 18:37
PROVIDERS: ADMIT Hospitalist; ATTEND Hospitalist
DX: K85.10 Biliary acute pancreatitis without necrosis or infection (principal); I48.0 Paroxysmal atrial fibrillation; K76.0 Fatty (change of) liver, not elsewhere classified; E83.42 Hypomagnesemia; R16.2 Hepatomegaly with splenomegaly, not elsewhere classified; I48.2 Chronic atrial fibrillation; K80.20 Calculus of gallbladder without cholecystitis without obstruction; K86.89 Other specified diseases of pancreas; K82.8 Other specified diseases of gallbladder; I25.10 Atherosclerotic heart disease of native coronary artery without angina pectoris; I10 Essential (primary) hypertension; E11.9 Type 2 diabetes mellitus without complications; D63.8 Anemia in other chronic diseases classified elsewhere; J44.9 Chronic obstructive pulmonary disease, unspecified; F31.9 Bipolar disorder, unspecified; E78.1 Pure hyperglyceridemia; G47.30 Sleep apnea, unspecified; N20.0 Calculus of kidney; I25.2 Old myocardial infarction; H26.9 Unspecified cataract; M10.9 Gout, unspecified; Z95.1 Presence of aortocoronary bypass graft; Z95.5 Presence of coronary angioplasty implant and graft; Z87.01 Personal history of pneumonia (recurrent); Z87.442 Personal history of urinary calculi; Z87.891 Personal history of nicotine dependence; Z82.49 Family history of ischemic heart disease and other diseases of the circulatory system; Z82.5 Family history of asthma and other chronic lower respiratory diseases; Z91.5 Personal history of self-harm; Z79.84 Long term (current) use of oral hypoglycemic drugs; Z79.4 Long term (current) use of insulin; Z79.51 Long term (current) use of inhaled steroids; Z79.899 Other long term (current) drug therapy; Z86.19 Personal history of other infectious and parasitic diseases
CPT/HCPCS: 36415; 71020; 74177; 76705; 80053; 80061; 82150; 82787; 83036; 83690; 83735; 83880; 84478; 84484; 85025; 85610; 85730; 93005; 94640; 94760; 96361; 96374; 99285

== ENCOUNTER 2016-12-12 16:46 | Inpatient (IN) | payer MEDICARE, OTHER ==
[2016-12-12] MEDS ORDERED: SODIUM CHLORIDE 0.9% 1,000 ML IV STA (17:10)
[2016-12-12] MEDS ORDERED: HYDROmorphone 1 MG/ML 1 ML SYRINGE IVP STA (17:11)
--- NOTE | 2016-12-12 17:16 | ED ---
Chest Pain HPI - General Chief Complaint: Chest Pain Stated Complaint: Chest Pain Time Seen by Provider: 12/12/16 16:55 Source: patient, RN notes reviewed Mode of arrival: wheelchair Limitations: no limitations - History of Present Illness Initial Comments: This is a 66-year-old male with a history of heart disease and status last summer who states he had an onset about 1-1/2 hours ago sharp midsternal chest pain was 8/10 in severity now he was driving his jeep. He did no cough fevers chills or sweats he did nothing strenuous he can think of that could've hurt his chest wall he did take 3 nitroglycerin with minimal relief he also took a Vicodin and now states at 6/10. He has no other symptoms he does state however feels similar to when he had the stent placement last summer. MD Complaint: chest pain - Related Data Home Medications Medication Instructions Recorded Confirmed ARIPiprazole [Abilify] 5 mg PO DAILY 11/03/14 12/12/16 Citalopram Hydrobromide 40 mg PO DAILY 11/03/14 12/12/16 [Citalopram HBr] Saxagliptin HCl [Onglyza] 5 mg PO DAILY 11/03/14 12/12/16 metFORMIN HCL 1,000 mg PO BID 11/03/14 12/12/16 Ascorbic Acid [Vitamin C] 500 mg PO DAILY 01/17/16 12/12/16 Cholecalciferol [Vitamin D3] 2,000 unit PO DAILY 01/17/16 12/12/16 Gemfibrozil [Lopid] 600 mg PO AC-BID 01/17/16 12/12/16 Insulin Detemir [Levemir] 78 unit SQ BID 01/17/16 12/12/16 Atorvastatin [Lipitor] 40 mg PO HS 07/02/16 12/12/16 HYDROcodone/APAP 7.5-325MG [[place] 1 tab PO Q8H PRN 07/02/16 12/12/16 7.5-325] Lisinopril [Zestril] 10 mg PO BID 07/02/16 12/12/16 Metoprolol Tartrate [Lopressor] 25 mg PO BID 07/02/16 12/12/16 [place]-3 Fatty Acids/Fish Oil [Fish 1 cap PO DAILY 07/02/16 12/12/16 Oil 1,000 mg Softgel] Prazosin HCl 2 mg PO HS 07/02/16 12/12/16 Ticagrelor [Brilinta] 90 mg PO BID 07/02/16 12/12/16 traZODone HCL 150 mg PO HS 07/02/16 12/12/16 Aspirin EC [Ecotrin Low Dose] 81 mg PO DAILY 11/20/16 12/12/16 Bisoprolol Fumarate [Zebeta] 5 mg PO DAILY 11/20/16 12/12/16 Budesonide/Formoterol Fumarate 2 puff INHALATION RT-BID 11/20/16 12/12/16 [Symbicort 80-4.5 Mcg Inhaler] Colchicine 0.6 mg PO DAILY 11/20/16 12/12/16 Hydrochlorothiazide [Hydrodiuril] 25 mg PO HS 11/20/16 12/12/16 Insulin Aspart [NovoLOG] 10 - 12 unit SQ AC-TID 11/20/16 12/12/16 Isosorbide Mononitrate ER [Imdur] 30 mg PO DAILY 11/20/16 12/12/16 Montelukast [Singulair] 10 mg PO HS 11/20/16 12/12/16 Nitroglycerin Sl Tabs [Nitrostat] 0.4 mg SUBLINGUAL Q5M PRN 12/12/16 12/12/16 Previous Rx's Medication Instructions Recorded Famotidine [Pepcid] 20 mg PO BID #40 tab 11/22/16 Allergies Allergy/AdvReac Type Severity Reaction Status Date / Time No Known Allergies Allergy Verified 12/12/16 17:12 Review of Systems ROS Statement: Those systems with pertinent positive or pertinent negative responses have been documented in the HPI. ROS Other: All systems not noted in ROS Statement are negative. EKG Findings - EKG Results: EKG: interpreted by [facility]MA[facility] (Normal sinus rhythm with a rate of 77 VT interval 164 QRS duration 92 QT/QTC of 388/[address]-T wave changes) Past Medical History Past Medical History: Atrial Fibrillation, Coronary Artery Disease (CAD), COPD, Diabetes Mellitus, Hypertension, Pneumonia, Sleep Apnea/CPAP/BIPAP, Syncope Additional Past Medical History / Comment(s): sleep apnea with CPAP, KIDNEY STONES, GOUT, CATARACTS_HAD LASIK SX, BIPOLAR DEPRESSION.has had shingles vaccine 2016 History of Any Multi-Drug Resistant Organisms: None Reported Past Surgical History: Heart Catheterization With Stent, Hernia Repair, Orthopedic Surgery, Tonsillectomy Additional Past Surgical History / Comment(s): eye lid cyst removed,, pilonidal cyst, lasik, bilateral knee sx,LITHOTRIPSY, COLONOSCOPY,05-15-16 at [facility] had heart cath w/1 stent then again 05-21-16 had 2 more stents. Past Anesthesia/Blood Transfusion Reactions: No Reported Reaction Date of Last Stent Placement:: 05-21-16 Past Psychological History: Bipolar, Depression Additional Psychological History / Comment(s): at time of this admit asked pt if he currently is depressed or have any thoughts of harming self-he stated no" asked if he currently feels maintained on meds stated "yes". pt admitted to 5 past suicide attempts. pt lives at home with his common law ekaterina. pt served in the [employer] for 8 years. 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 Smoking Status: Former smoker Past Alcohol Use History: None Reported Additional Past Alcohol Use History / Comment(s): started smoking at age 16(1966 ) stopped at age 65() smoked, 1ppd. Past Drug Use History: None Reported - Past Family History Mother Family Medical History: Coronary Artery Disease (CAD) Father Family Medical History: Coronary Artery Disease (CAD) Additional Family Medical History / Comment(s): emphysema General Exam - General Exam Comments Initial Comments: This is a well-developed well-nourished alert awake oriented 3 male Limitations: no limitations General appearance: alert, in no apparent distress Head exam: Present: atraumatic, normocephalic, normal inspection Eye exam: Present: normal appearance, PERRL, EOMI. Absent: scleral icterus, conjunctival injection, periorbital swelling ENT exam: Present: normal exam, mucous membranes moist Neck exam: Present: normal inspection. Absent: tenderness, meningismus, lymphadenopathy Respiratory exam: Present: normal lung sounds bilaterally, chest wall tenderness. Absent: respiratory distress, wheezes, rales, rhonchi, stridor Cardiovascular Exam: Present: regular rate, normal rhythm, normal heart sounds. Absent: systolic murmur, diastolic murmur, rubs, gallop, clicks GI/Abdominal exam: Present: soft, normal bowel sounds. Absent: distended, tenderness, guarding, rebound, rigid Extremities exam: Present: normal inspection, full ROM, normal capillary refill. Absent: tenderness, pedal edema, joint swelling, calf tenderness Back exam: Present: normal inspection Neurological exam: Present: alert, oriented X3, CN II-XII intact Psychiatric exam: Present: normal affect, normal mood Skin exam: Present: warm, dry, intact, normal color. Absent: rash Course Vital Signs 12/12/16 12/12/16 12/12/16 16:49 17:51 18:45 Temperature 98.2 F 97.5 F L Pulse Rate 76 73 Pulse Rate [ 74 Seed Collector ] Respiratory 20 16 20 Rate Blood Pressure 138/83 160/76 O2 Sat by Pulse 97 97 Oximetry - Reevaluation(s) Reevaluation #1: 12/12/16 19:05 Reevaluation patient reveals some improvement. Chest Pain MDM - MDM Did have a long discussion with patient family patient will be admitted for evaluation of chest pain. Ultrasound showed a single gallstone with no evidence of obstruction at this time. Disposition Clinical Impression: Chest pain, Cholelithiasis Disposition: ADMITTED IP TO THIS [facility] Condition: Stable
[2016-12-12 17:49] LABS: Basophils # (A) 0.1 k/uL (0-0.2); Basophils % (A) 1 %; CH 29.7; CHCM 34.2; Eosinophils # (A) 0.1 k/uL (0-0.7); Eosinophils % (A) 2 %; HCT 33.7 % (39.0-53.0); HDW 2.78; Luc # (Auto) 0.18; Luc % (Auto) 3; Lymphocytes # (A) 1.2 k/uL (1.0-4.8); Lymphocytes % (A) 20 %; MCH 28.5 pg (25.0-35.0); MCHC 32.7 g/dL (31.0-37.0); MCV 87.1 fL (80.0-100.0); Mean Platelet Volume 7.7; Monocytes # (A) 0.6 k/uL (0-1.0); Monocytes % (A) 10 %; Neutrophils # (A) 3.8 k/uL (1.3-7.7); Neutrophils % (A) 64 %; RBC 3.87 m/uL (4.30-5.90); RDW 13.2 % (11.5-15.5); WBC (Perox) 5.33
--- NOTE | 2016-12-12 17:50 | XR ---
EXAMINATION TYPE: XR chest 2V DATE OF EXAM: 12/12/2016 5:45 PM COMPARISON: 11/20/2016 HISTORY: Chest pain TECHNIQUE: Frontal and lateral views of the chest are obtained. FINDINGS: Heart and mediastinum are normal. Lungs are clear. Diaphragm is normal. There is mild spur ring in the thoracic spine. There are no hilar masses. There are chest leads. IMPRESSION: Normal chest. No adverse change compared to old exam.
[2016-12-12 18:01] LABS: ALT 54 U/L (21-72); AST 41 U/L (17-59); Alkaline Phosphatase 95 U/L (38-126); Amylase 80 U/L (30-110); Anion Gap 13 mmol/L; Blood Urea Nitrogen 34 mg/dL (9-20); Calcium 9.9 mg/dL (8.4-10.2); Carbon Dioxide 22 mmol/L (22-30); Chloride 104 mmol/L (98-107); Glucose 219 mg/dL (74-99); Magnesium 1.3 mg/dL (1.6-2.3); Non-African American GFR(MDRD) >60 (>60 ml/min/1.73 sqM); Sodium 139 mmol/L (137-145); Total Bilirubin 0.4 mg/dL (0.2-1.3); Total Protein 7.3 g/dL (6.3-8.2)
[2016-12-12] MEDS ORDERED: MAGNESIUM SULFATE-D5W PMX 1 GM in DEXTROSE/WATER 1 100ML.BAG IVPB ONE (18:02)
[2016-12-12 18:04] LABS: INR 1.1 (<1.1)
[2016-12-12 18:08] LABS: Creatine Kinase 534 U/L (55-170)
[2016-12-12 18:20] LABS: Troponin I <0.012 ng/mL (0.000-0.034)
[2016-12-12 18:21] LABS: Creatine Kinase MB 4.1 ng/mL (0.0-2.4)
--- NOTE | 2016-12-12 18:57 | US ---
EXAMINATION TYPE: US gallbladder DATE OF EXAM: 12/12/2016 6:38 PM COMPARISON: 11/21/2016 CLINICAL HISTORY: pain. Epigastric pain, cholelithiasis EXAM MEASUREMENTS: Liver Length: 21.0 cm Gallbladder Wall: 0.2 cm CBD: 0.3 cm Right Kidney: 12.7 x 6.3 x 5.8 cm TECHNOLOGIST IMPRESSION: Pancreas: portions obscured by overlying bowel, duct = 0.2cm Liver: enlarged, attenuating Gallbladder: mobile stone noted = 0.7cm near neck, non-mobile dense echogenic areas noted anterior w all Evidence for sonographic Roy's sign: Yes CBD: appears wnl Right Kidney: small amount of free fluid adjacent to lower pole IMPRESSION: There is a single gallstone. No dilated ducts. No focal liver defect. There is possible t iny amount of free fluid adjacent to lower pole of the right kidney. No ascites. No definite change c ompared to last exam.
[2016-12-12] MEDS: SYMBICORT 80-4.5 MCG INHALER INHALATION SCH (19:39)
[2016-12-12 19:57] LABS: Glucose,Whole Blood 174 mg/dL (75-99)
[2016-12-12 20:30] LABS: Hemoglobin A1C 8.9 % (4.2-6.1)
[2016-12-12] MEDS: HYDROcodone/APAP 7.5-325MG 1 EACH TAB PO PRN (21:31)
[2016-12-12] MEDS: metFORMIN 500 MG TAB PO SCH (21:34)
[2016-12-12] MEDS: LISINOPRIL 10 MG TAB PO SCH (21:34)
[2016-12-12] MEDS: ATORVASTATIN 40 MG TAB PO SCH (21:34)
[2016-12-12] MEDS: MONTELUKAST 10 MG TAB PO SCH (21:34)
[2016-12-12] MEDS: HYDROCHLOROTHIAZIDE 25 MG TAB PO SCH (21:34)
[2016-12-12] MEDS: PRAZOSIN 1 MG CAP PO SCH (21:34)
[2016-12-12] MEDS: FAMOTIDINE 20 MG TAB PO SCH (21:34)
[2016-12-12] MEDS: traZODone HCL 50 MG TAB PO SCH (21:35)
[2016-12-12] MEDS: TICAGRELOR 90 MG TAB PO SCH (21:35)
[2016-12-12] MEDS: INSULIN LISPRO (humaLOG) 300 UNIT/3 ML VIAL SQ SCH (21:46)
[2016-12-12] MEDS: INSULIN DETEMIR 100 UNIT/ML 10 ML VIAL SQ SCH (21:47)
[2016-12-13] MEDS: NITROGLYCERIN OINT 1 INCH/GM PACKET TOPICAL SCH ×4 (00:11→23:23)
[2016-12-13 00:40] LABS: Creatine Kinase 523 U/L (55-170)
[2016-12-13 00:53] LABS: Troponin I <0.012 ng/mL (0.000-0.034)
[2016-12-13 00:58] LABS: Creatine Kinase MB 4.4 ng/mL (0.0-2.4)
[2016-12-13 06:17] LABS: Cholesterol 170 mg/dL (<200); HDL Cholesterol 34 mg/dL (40-60); Triglycerides 422 mg/dL (<150)
[2016-12-13 06:24] LABS: Creatine Kinase 483 U/L (55-170)
[2016-12-13 06:37] LABS: Troponin I <0.012 ng/mL (0.000-0.034)
[2016-12-13 06:43] LABS: Creatine Kinase MB 3.6 ng/mL (0.0-2.4)
[2016-12-13 06:54] LABS: Glucose,Whole Blood 222 mg/dL (75-99)
[2016-12-13] MEDS: INSULIN LISPRO (humaLOG) 300 UNIT/3 ML VIAL SQ SCH ×4 (07:42→21:41)
[2016-12-13] MEDS: SYMBICORT 80-4.5 MCG INHALER INHALATION SCH ×2 (08:26→20:03)
[2016-12-13] MEDS ORDERED: HEPARIN SODIUM,PORCINE 5,000 UNIT/ML 1 ML VIAL IV ONE (08:47)
[2016-12-13 08:58] LABS: Basophils # (A) 0.1 k/uL (0-0.2); Basophils % (A) 2 %; CH 29.4; CHCM 32.7; Eosinophils # (A) 0.2 k/uL (0-0.7); Eosinophils % (A) 4 %; HCT 35.3 % (39.0-53.0); HGB 11.3 gm/dL (13.0-17.5); Luc % (Auto) 3; Lymphocytes # (A) 1.3 k/uL (1.0-4.8); Lymphocytes % (A) 21 %; MCH 28.9 pg (25.0-35.0); MCHC 31.9 g/dL (31.0-37.0); MCV 90.4 fL (80.0-100.0); Mean Platelet Volume 7.8; Monocytes # (A) 0.6 k/uL (0-1.0); Monocytes % (A) 9 %; Neutrophils # (A) 3.7 k/uL (1.3-7.7); Neutrophils % (A) 61 %; RDW 13.2 % (11.5-15.5); WBC 6.2 k/uL (3.8-10.6); WBC (Perox) 6.57
[2016-12-13] MEDS ORDERED: ATORVASTATIN 80 MG TAB PO STA (08:59)
[2016-12-13] MEDS ORDERED: ALPRAZolam 0.25 MG TAB PO PRN (08:59)
[2016-12-13] MEDS ORDERED: ASPIRIN 325 MG TAB PO STA (08:59)
[2016-12-13] MEDS ORDERED: SODIUM CHLORIDE 0.9% 1,000 ML in EMPTY BAG 1 BAG IV ONE (08:59)
[2016-12-13] MEDS ORDERED: ALPRAZolam 0.5 MG TAB PO PRN (08:59)
[2016-12-13] MEDS ORDERED: NITROGLYCERIN SL TABS 0.4 MG TAB SUBLINGUAL PRN (08:59)
[2016-12-13] MEDS ORDERED: NON-FORMULARY DRUG (Omega-3 Fatty Acids/Fish Oil [Fish Oil 1,000 Mg Softgel] 1 CAP) PO SCH (09:00)
[2016-12-13] MEDS ORDERED: ASPIRIN 325 MG TAB PO SCH (09:00)
[2016-12-13 09:13] LABS: Partial Thromboplastin Time 26.1 sec (22.0-30.0); Prothrombin Time 10.3 sec (9.0-12.0)
--- NOTE | 2016-12-13 09:20 | CONS ---
DATE OF CONSULTATION: CHIEF COMPLAINT: Chest pain. HISTORY OF PRESENT ILLNESS: This is a 66-year-old gentleman with history of coronary artery disease, status post angioplasty in December of last year at [facility]. Patient was here back in September with chest pain and had a negative stress test, comes in complaining of chest pain. He describes it as precordial chest pressure that radiated to his left arm, mild to moderate intensity, came on at rest and had gradually subsided. EKG does not reveal ischemic changes and at the time of my evaluation, patient appears comfortable at rest. Patient's symptomatology is suggestive of unstable angina, so I am going to admit him to the hospital treat him with IV heparin and schedule him for a cardiac cath on Thursday. I discussed these issues at length. He understands and is in agreement with the plans. Past medical history is significant for CAD, status post angioplasty, hypertension, diabetes, dyslipidemia, gout. Current medications include Nitrostat, Abilify, insulin, HydroDIURIL, Lopid, Pepcid, citalopram, aspirin, atorvastatin, trazodone, metformin, Brilinta, ( ), Singulair, Lopressor, Zestril, Imdur. ALLERGIES: No known drug allergies. Family history is negative for premature coronary artery disease. SOCIAL HISTORY: He denies smoking or EtOH abuse or drug abuse. REVIEW OF SYSTEMS: HEENT: Unremarkable. CARDIAC: As described above. RESPIRATORY: Negative. GI: Negative. GENITOURINARY: Negative. ALLERGY/IMMUNOLOGICAL: Negative. MUSCULOSKELETAL: Negative. ENDOCRINE: Negative. DERMATOLOGY: Negative. CONSTITUTIONAL: Negative. ONCOLOGICAL: Negative. The rest of the system review is not relevant. On exam, comfortable at rest. Vital signs are stable. There is no jugular venous distention. Chest exam reveals good air entry bilaterally. Heart exam reveals first and second heart sounds. No gallop. No murmur, no rub. Abdomen is soft, nontender. Exam of extremities did not reveal edema. Peripheral pulses are felt. Labs show that hemoglobin is 11, platelet count is 346. Three sets of tropes are negative. His total cholesterol is 170, triglycerides are elevated and the blood sugars are poorly controlled. EKG does not reveal acute ischemic changes. I reviewed his old records. ASSESSMENT: 1. Unstable angina. 2. Hypertension. 3. Dyslipidemia. 4. Insulin-requiring diabetes. PLAN: I am going to schedule the patient for a cardiac cath on Thursday.
[2016-12-13] MEDS: ISOSORBIDE MONONITRATE ER 30 MG TAB.ER.24H PO SCH (10:16)
[2016-12-13] MEDS: metFORMIN 500 MG TAB PO SCH ×2 (10:16→18:03)
[2016-12-13] MEDS: CHOLECALCIFEROL 1,000 UNIT TAB PO SCH (10:16)
[2016-12-13] MEDS: BISOPROLOL 5 MG TAB PO SCH (10:16)
[2016-12-13] MEDS: GEMFIBROZIL 600 MG TAB PO SCH ×2 (10:16→18:03)
[2016-12-13] MEDS: FAMOTIDINE 20 MG TAB PO SCH ×2 (10:17→21:31)
[2016-12-13] MEDS: LINAGLIPTIN 5 MG TABLET PO SCH (10:17)
[2016-12-13] MEDS: COLCHICINE 0.6 MG TAB PO SCH (10:17)
[2016-12-13] MEDS: TICAGRELOR 90 MG TAB PO SCH ×2 (10:17→21:33)
[2016-12-13] MEDS: LISINOPRIL 10 MG TAB PO SCH (10:17)
[2016-12-13] MEDS: INSULIN DETEMIR 100 UNIT/ML 10 ML VIAL SQ SCH ×2 (10:17→21:42)
[2016-12-13] MEDS: HEPARIN SODIUM,PORCINE/D5W PMX 25,000 UNIT in DEXTROSE/WATER 1 500ML.BAG IV SCH (10:18)
[2016-12-13] MEDS: HEPARIN SODIUM,PORCINE 5,000 UNIT/ML 1 ML VIAL IV PRN ×2 (10:20→22:17)
[2016-12-13 11:53] LABS: Glucose,Whole Blood 300 mg/dL (75-99)
[2016-12-13] MEDS: METOPROLOL TARTRATE 25 MG TAB PO SCH ×2 (12:23→21:40)
[2016-12-13] MEDS: ASCORBIC ACID 500 MG TAB PO SCH (12:23)
[2016-12-13] MEDS: CITALOPRAM HYDROBROMIDE 20 MG TAB PO SCH (12:23)
--- NOTE | 2016-12-13 13:07 | ECHOF ---
Referral Reason:chest pain MEASUREMENTS -------- HEIGHT: 177.8 cm WEIGHT: 102.5 kg BP: 93/50 IVSd: 1.3 cm (0.6 - 1.1) LVIDd: 4.6 cm (3.9 - 5.3) LVPWd: 1.4 cm (0.6 - 1.1) LVIDs: 3.0 cm LA Diam: 4.1 cm (2.7 - 3.8) RVIDd: 3.3 cm (< 3.3) LAESV Index (A-L): 23.29 ml/m Ao Diam: 3.4 cm (2.0 - 3.7) AV Cusp: 2.5 cm (1.5 - 2.6) EPSS: 0.9 cm MV E Jovan: 0.82 m/s MV DecT: 260 ms MV A Jovan: 0.78 m/s MV E/A Ratio: 1.05 RAP: 5.00 mmHg RVSP: 29.09 mmHg MV EF SLOPE: 69.73 mm/s (70 - 150) MV EXCURSION: 12.17 mm (> 18.000) FINDINGS -------- Sinus rhythm. This was a technically good study. The left ventricular size is normal. There is moderate concentric left ventricular hypertrophy. Overall left ventricular systolic function is normal with, an EF between 60 - 65 %. The right ventricle is mildly enlarged. Normal LA size by volume 22+/-6 ml/m2. The right atrium is normal in size. The aortic valve is trileaflet and appears structurally normal. Mild mitral annular calcification present. Mild tricuspid regurgitation present. Right ventricular systolic pressure is normal at < 35 mmHg. Trace/mild (physiologic) pulmonic regurgitation. The aortic root size is normal. The inferior vena cava is mildly dilated. There is no pericardial effusion. CONCLUSIONS -------- 1. Sinus rhythm. 2. Mild mitral annular calcification present. 3. Mild tricuspid regurgitation present. 4. Right ventricular systolic pressure is normal at < 35 mmHg. 5. Trace/mild (physiologic) pulmonic regurgitation. 6. The aortic root size is normal. 7. The inferior vena cava is mildly dilated. 8. There is no pericardial effusion. 9. This was a technically good study. 10. The left ventricular size is normal. 11. There is moderate concentric left ventricular hypertrophy. 12. Overall left ventricular systolic function is normal with, an EF between 60 - 65 %. 13. The right ventricle is mildly enlarged. 14. Normal LA size by volume 22+/-6 ml/m2. 15. The right atrium is normal in size. 16. The aortic valve is trileaflet and appears structurally normal. CONCRETE WALL GRINDER OPERATOR: Piedad Sewell RDCS
[2016-12-13] MEDS: NITROGLYCERIN SL TABS 0.4 MG TAB SUBLINGUAL PRN ×6 (13:29→15:05)
[2016-12-13] MEDS: HYDROcodone/APAP 7.5-325MG 1 EACH TAB PO PRN (13:34)
[2016-12-13 16:50] LABS: Glucose,Whole Blood 165 mg/dL (75-99)
[2016-12-13] MEDS: SODIUM CHLORIDE 0.9% 1,000 ML IV SCH ×2 (18:18→21:43)
[2016-12-13] MEDS: ARIPiprazole 5 MG TAB PO SCH (18:19)
--- NOTE | 2016-12-13 19:17 | HP ---
DATE OF ADMISSION: 12/13/2016 The patient is a 66 -year-old with of history of coronary artery disease and had a cardiac catheterization about one year ago and a stress test a few days ago, which was within normal limits, came in with complaints of mid sternal chest pain on and off nonexertional. Lasted about a few minutes, 6 over 10 in severity, radiating to the left arm, pressure-like sensation, not associated with food, not associated with diaphoresis, not associated with shortness of breath, not associated with lightheadedness. Chest pain is nonpleuritic in nature, not associated with food and Vicodin causes good relief and nitroglycerin causes minimal relief and patient was evaluated by Dr. Ken Horn and he is recommending cardiac catheterization on Thursday. Patient also has ultrasound of the abdomen, ultrasound of the gallbladder which showed one gallbladder stone. Echocardiogram showed normal ejection fraction. No significant wall motion abnormalities on echocardiogram. REVIEW OF SYSTEMS: CONSTITUTIONAL: No fever, no malaise, no fatigue. HEENT: No recent visual problems or hearing problems. Denied any sore throat. CARDIOVASCULAR: As described in HPI. Patient denied any shortness of breath denied any cough, runny nose. PULMONARY: No shortness of breath, no cough, no hemoptysis. GASTROINTESTINAL: No diarrhea, no nausea, no vomiting, no abdominal pain. Normoactive bowel sounds. NEUROLOGICAL: No headaches, no weakness, no numbness. HEMATOLOGICAL: Denies any bleeding or petechiae. GENITOURINARY: Denies any burning micturition, frequency, or urgency. MUSCULOSKELETAL/RHEUMATOLOGICAL: Denies any joint pain, swelling, or any muscle pain. ENDOCRINE: Denies any polyuria or polydipsia. The rest of the 14 point review of systems is negative. Home medications: 1. ( ). 2. Citalopram. 3. Sitagliptin. 4. Metformin. 5. Ascorbic acid. 6. Cholecalciferol. 7. Gemfibrozil. 8. Insulin. 9. Atorvastatin. 10. Lisinopril. 11. [place] 3 fatty acids. 12. Trazodone. 13. Brilinta. 14. Aspirin. 15. ( ). 16. Budesonide. 17. Formoterol. 18. Hydrochlorothiazide. 19. Insulin aspart. 20. Imdur. 21. Montelukast. 22. Nitroglycerine. 23. Famotidine. Allergies: No known drug allergies. PAST MEDICAL HISTORY: Coronary artery disease, COPD, diabetes mellitus, hypertension, sleep apnea, bipolar depression. SOCIAL HISTORY: The patient used to smoke 1 pack per day, quit smoking in November 2015. Denied any alcohol abuse or any drug abuse. FAMILY HISTORY: Coronary artery disease in mother and father. PHYSICAL EXAMINATION: VITAL SIGNS: Temperature 97.6, pulse of 70, respiratory rate of 16, blood pressure 111/59, saturating at 98% on room air. GENERAL: The patient is alert and oriented x3, not in any acute distress. Well developed, well nourished. HEENT: Pupils are round and equally reacting to light. EOMI. No scleral icterus. No conjunctival pallor. Normocephalic, atraumatic. No pharyngeal erythema. No thyromegaly. CARDIOVASCULAR: S1 and S2 present. No murmurs, rubs, or gallops. PULMONARY: Chest is clear to auscultation, no wheezing or crackles. ABDOMEN: Soft, nontender, nondistended, normoactive bowel sounds. No palpable organomegaly. MUSCULOSKELETAL: No joint swelling or deformity. EXTREMITIES: No cyanosis, clubbing, or pedal edema. NEUROLOGICAL: Gross neurological examination did not reveal any focal deficits. SKIN: No rashes. LABORATORY DATA: CBC, comprehensive metabolic profile are within normal limits runs. Patient has elevated glucose, hemoglobin A1C of 8.9, magnesium is low at 1.5. Troponin is negative. EKG was reviewed. ASSESSMENT AND PLAN: 1. Chest pain. Rule out unstable angina. Patient is going for cardiac catheterization on Thursday. Patient is on heparin IV. 2. Hypertension. 3. Dyslipidemia. 4. Diabetes mellitus type 2. 5. Incidental finding of cholelithiasis. No intervention at this point of time. 6. Depression. PLAN: Continue all his medications for all his chronic medical problems. Hold off metformin. Cut down on Lisinopril to 10 mg daily, metformin will be held because the patient may receive contrast on Thursday. Patient will be n.p.o. tomorrow. Patient will be started on sliding scale insulin. Patient's primary care physician is Dr. Andrea Fierro.
[2016-12-13 21:00] LABS: Glucose,Whole Blood 198 mg/dL (75-99)
[2016-12-13] MEDS: ATORVASTATIN 40 MG TAB PO SCH (21:31)
[2016-12-13] MEDS: HYDROCHLOROTHIAZIDE 25 MG TAB PO SCH (21:32)
[2016-12-13] MEDS: traZODone HCL 50 MG TAB PO SCH (21:33)
[2016-12-13] MEDS: PRAZOSIN 1 MG CAP PO SCH (21:33)
[2016-12-13] MEDS: MONTELUKAST 10 MG TAB PO SCH (21:33)
[2016-12-13] MEDS ORDERED: Magnesium Replacement Protocol 1 EACH MISC MISCELLANE PRN (23:17)
[2016-12-13] MEDS: MAGNESIUM SULFATE-D5W PMX 1 GM in DEXTROSE/WATER 1 100ML.BAG IVPB SCH (23:37)
[2016-12-14] MEDS: MAGNESIUM SULFATE-D5W PMX 1 GM in DEXTROSE/WATER 1 100ML.BAG IVPB SCH ×2 (01:48→01:49)
[2016-12-14 06:08] LABS: Glucose,Whole Blood 222 mg/dL (75-99)
[2016-12-14] MEDS: NITROGLYCERIN OINT 1 INCH/GM PACKET TOPICAL SCH ×4 (06:30→23:31)
[2016-12-14] MEDS: INSULIN LISPRO (humaLOG) 300 UNIT/3 ML VIAL SQ SCH ×4 (06:30→20:41)
[2016-12-14] MEDS: GEMFIBROZIL 600 MG TAB PO SCH ×2 (06:30→17:12)
[2016-12-14 07:17] LABS: CH 29.2; CHCM 32.8; HCT 32.4 % (39.0-53.0); HDW 2.73; HGB 10.8 gm/dL (13.0-17.5); MCH 29.7 pg (25.0-35.0); MCHC 33.2 g/dL (31.0-37.0); MCV 89.4 fL (80.0-100.0); Mean Platelet Volume 6.9; RBC 3.62 m/uL (4.30-5.90); RDW 13.1 % (11.5-15.5); WBC 4.7 k/uL (3.8-10.6)
[2016-12-14 07:40] LABS: Anion Gap 14 mmol/L; Blood Urea Nitrogen 27 mg/dL (9-20); Calcium 9.8 mg/dL (8.4-10.2); Carbon Dioxide 18 mmol/L (22-30); Chloride 107 mmol/L (98-107); Glucose 204 mg/dL (74-99); Magnesium 1.9 mg/dL (1.6-2.3); Non-African American GFR(MDRD) >60 (>60 ml/min/1.73 sqM); Potassium 4.9 mmol/L (3.5-5.1); Sodium 139 mmol/L (137-145)
[2016-12-14] MEDS: SYMBICORT 80-4.5 MCG INHALER INHALATION SCH ×2 (08:14→20:12)
[2016-12-14] MEDS: ARIPiprazole 5 MG TAB PO SCH (08:47)
[2016-12-14] MEDS: COLCHICINE 0.6 MG TAB PO SCH (08:48)
[2016-12-14] MEDS: ASCORBIC ACID 500 MG TAB PO SCH (08:48)
[2016-12-14] MEDS: TICAGRELOR 90 MG TAB PO SCH ×2 (08:48→20:43)
[2016-12-14] MEDS: METOPROLOL TARTRATE 25 MG TAB PO SCH ×2 (08:48→20:42)
[2016-12-14] MEDS: ASPIRIN 81 MG CHEW PO SCH (08:49)
[2016-12-14] MEDS: ISOSORBIDE MONONITRATE ER 30 MG TAB.ER.24H PO SCH (08:52)
[2016-12-14] MEDS: LINAGLIPTIN 5 MG TABLET PO SCH (08:52)
[2016-12-14] MEDS: CITALOPRAM HYDROBROMIDE 20 MG TAB PO SCH (08:52)
[2016-12-14] MEDS: CHOLECALCIFEROL 1,000 UNIT TAB PO SCH (08:52)
[2016-12-14] MEDS: FAMOTIDINE 20 MG TAB PO SCH ×2 (08:52→20:40)
[2016-12-14] MEDS: BISOPROLOL 5 MG TAB PO SCH (08:53)
[2016-12-14] MEDS: LISINOPRIL 10 MG TAB PO SCH (08:53)
[2016-12-14] MEDS: HEPARIN SODIUM,PORCINE/D5W PMX 25,000 UNIT in DEXTROSE/WATER 1 500ML.BAG IV SCH ×2 (08:56→23:29)
[2016-12-14] MEDS: INSULIN DETEMIR 100 UNIT/ML 10 ML VIAL SQ SCH ×2 (09:00→20:40)
--- NOTE | 2016-12-14 11:29 | PN ---
Known CAD, status post prior angioplasty. Came in to hospital with unstable angina, ruled out for myocardial infarction. I advised him to undergo cardiac catheterization. His cath will be done tomorrow. I am not sure if he sees someone in my office, initially I was going to do the cath, but tomorrow morning I am going to find out if he follows with someone in my office. If he does, he is going to have a cardiac cath by them. On exam, comfortable at rest. Vital signs are stable. There is no jugular venous distention. Chest exam reveals good air entry bilaterally. Heart exam reveals first and second heart sounds. No gallop. Exam of the extremities did not reveal any edema. Peripheral pulses are felt. ASSESSMENT: Unstable angina. PLAN: Patient is stable clinically. He will undergo cardiac catheterization tomorrow. Creatinine is normal at 1. He is on optimal medical therapy including aspirin, Lopid, Zestril, Lopressor, nitro paste and Brilinta. Patient has had some episodes of chest discomfort and required nitro but is otherwise stable.
[2016-12-14 11:32] LABS: Glucose,Whole Blood 324 mg/dL (75-99)
[2016-12-14 16:36] LABS: Glucose,Whole Blood 224 mg/dL (75-99)
--- NOTE | 2016-12-14 17:36 | PN ---
Patient is a 66-year-old, came in with chest on and off. Patient had an a few episodes of chest pain which is improved with nitro. Patient is going for cardiac catheterization. REVIEW OF SYSTEMS: CARDIOVASCULAR: No chest pain, no orthopnea, no PND, no palpitations. PULMONARY: Denied any shortness of breath. No cough or hemoptysis. GASTROINTESTINAL: No diarrhea, nausea or vomiting. No abdominal pain. Normoactive bowel sounds. NEUROLOGIC: No headaches, no weakness, no numbness. Medications were reviewed. PHYSICAL EXAMINATION: Temperature 96.9, pulse of 93, respiratory rate of 16, blood pressure 136/63, saturating at 93% on 2 L of O2 by nasal cannula. GENERAL: The patient is alert and oriented x3, not in any acute distress. Well developed, well nourished. HEENT: Pupils are round and equally reacting to light. EOMI. No scleral icterus. No conjunctival pallor. Normocephalic, atraumatic. No pharyngeal erythema. No thyromegaly. CARDIOVASCULAR: S1 and S2 present. No murmurs, rubs, or gallops. PULMONARY: Chest is clear to auscultation, no wheezing or crackles. ABDOMEN: Soft, nontender, nondistended, normoactive bowel sounds. No palpable organomegaly. MUSCULOSKELETAL: No joint swelling or deformity. EXTREMITIES: No cyanosis, clubbing, or pedal edema. NEUROLOGICAL: Gross neurological examination did not reveal any focal deficits. SKIN: No rashes. LABORATORY DATA: CBC, CMP was reviewed. No significant abnormality except for elevated blood glucose. ASSESSMENT AND PLAN: 1. Chest pain, ruled out acute coronary artery syndrome and unstable angina. Continue with IV heparin, cardiac catheterization tomorrow. 2. Hypertension. 3. Dyslipidemia. 4. Type 2 diabetes mellitus. 5. Incidental finding of cholelithiasis. No further intervention at this point of time. 6. Depression. Plan is to continue with present medication. Probably will need to hold off metformin for cardiac catheterization tomorrow and use sliding scale insulin instead. ( ) regimen will be continued.
[2016-12-14] MEDS: SODIUM CHLORIDE 0.9% 1,000 ML IV SCH (18:21)
[2016-12-14 19:59] LABS: Glucose,Whole Blood 259 mg/dL (75-99)
[2016-12-14] MEDS: HYDROCHLOROTHIAZIDE 25 MG TAB PO SCH (20:40)
[2016-12-14] MEDS: ATORVASTATIN 40 MG TAB PO SCH (20:40)
[2016-12-14] MEDS: traZODone HCL 50 MG TAB PO SCH (20:43)
[2016-12-14] MEDS: MONTELUKAST 10 MG TAB PO SCH (20:43)
[2016-12-14] MEDS: PRAZOSIN 1 MG CAP PO SCH (20:43)
[2016-12-15] MEDS ORDERED: ASPIRIN 325 MG TAB PO ONE (06:00)
[2016-12-15] MEDS ORDERED: ATORVASTATIN 80 MG TAB PO ONE (06:00)
[2016-12-15 06:27] LABS: Glucose,Whole Blood 197 mg/dL (75-99)
[2016-12-15] MEDS: INSULIN LISPRO (humaLOG) 300 UNIT/3 ML VIAL SQ SCH ×5 (06:31→21:20)
[2016-12-15] MEDS: ASPIRIN 81 MG CHEW PO SCH (06:33)
[2016-12-15] MEDS: INSULIN DETEMIR 100 UNIT/ML 10 ML VIAL SQ SCH ×2 (06:34→21:20)
[2016-12-15] MEDS: LINAGLIPTIN 5 MG TABLET PO SCH (06:34)
[2016-12-15] MEDS: METOPROLOL TARTRATE 25 MG TAB PO SCH (06:35)
[2016-12-15] MEDS: TICAGRELOR 90 MG TAB PO SCH ×2 (06:35→21:22)
[2016-12-15] MEDS: ARIPiprazole 5 MG TAB PO SCH (06:36)
[2016-12-15] MEDS: CHOLECALCIFEROL 1,000 UNIT TAB PO SCH (06:36)
[2016-12-15] MEDS: FAMOTIDINE 20 MG TAB PO SCH ×2 (06:36→21:20)
[2016-12-15] MEDS: BISOPROLOL 5 MG TAB PO SCH (06:36)
[2016-12-15] MEDS: CITALOPRAM HYDROBROMIDE 20 MG TAB PO SCH (06:36)
[2016-12-15] MEDS: COLCHICINE 0.6 MG TAB PO SCH (06:36)
[2016-12-15] MEDS: ASCORBIC ACID 500 MG TAB PO SCH (06:37)
[2016-12-15] MEDS: GEMFIBROZIL 600 MG TAB PO SCH ×2 (06:37→17:08)
[2016-12-15] MEDS: NITROGLYCERIN OINT 1 INCH/GM PACKET TOPICAL SCH ×3 (06:37→17:15)
[2016-12-15] MEDS: ISOSORBIDE MONONITRATE ER 30 MG TAB.ER.24H PO SCH (06:37)
[2016-12-15] MEDS: LISINOPRIL 10 MG TAB PO SCH (06:37)
[2016-12-15] MEDS: SYMBICORT 80-4.5 MCG INHALER INHALATION SCH ×2 (08:52→19:37)
[2016-12-15] MEDS ORDERED: IV FLUID CONTINUATION 1,000 ML IV ONE (09:25)
[2016-12-15] MEDS ORDERED: diphenhydrAMINE 50 MG/ML 1 ML VIAL ONE (09:28)
[2016-12-15] MEDS ORDERED: MIDAZOLAM 2 MG/2 ML VIAL ONE (09:28)
[2016-12-15] MEDS ORDERED: diphenhydrAMINE 50 MG/ML 1 ML VIAL IVP ONE (09:30)
[2016-12-15] MEDS ORDERED: MIDAZOLAM 2 MG/2 ML VIAL IVP ONE (09:30)
[2016-12-15] MEDS ORDERED: LIDOCAINE 2% INJ 20 MG/ML SQ ONE ×2 (09:34→10:54)
[2016-12-15] MEDS: fentaNYL (PF) 50 MCG/ML 2 ML AMP IV ONE ×2 (09:36→10:48)
--- NOTE | 2016-12-15 10:03 | CC ---
DATE OF SERVICE: INDICATION: Unstable angina. Boone is a 66-year-old gentleman with history of coronary artery disease, status post multivessel angioplasty, comes to hospital with unstable angina and was advised to undergo cardiac catheterization. He had been explained of risks, benefits, and alternatives, understood and accepted. He sees my associate, Dr. Forrest in the office regularly; however, I performed his cardiac catheterization in his absence. FINDINGS: 1. HEMODYNAMICS: Left ventricular end-diastolic pressure is 12 to 14 mm. There is no significant gradient across the aortic valve. 2. LEFT VENTRICULOGRAM: Left ventriculogram is not performed. 3. ANGIOGRAPHIC DATA: LEFT MAIN CORONARY ARTERY: Left main coronary artery is a normal size vessel and is free of stenosis. Divides into left anterior descending coronary artery and circumflex coronary artery. LAD, the previously stented area appears patent. There is mild to moderate atherosclerotic plaque in the proximal and mid to distal LAD. Ramus intermedius shows a 30% to 40% stenosis. [place] circumflex coronary artery is free of significant disease. Right coronary artery is a large dominant vessel that shows a 95% focal stenosis in the PLV branch. CONCLUSION: Three-vessel coronary artery disease as described above with a 95% stenosis involving the PLV branch with patent stents from the previous angioplasties. PLAN: Dr. Kline, the on-call plaster mixer, will review the angiographic data and attempt angioplasty of the PLV.
[2016-12-15] MEDS ORDERED: BIVALIRUDIN BOLUS 250 MG/50 ML IV ONE (10:09)
[2016-12-15] MEDS ORDERED: BIVALIRUDIN 250 MG in SODIUM CHLORIDE 0.9% 50 ML IV ONE ×2 (10:10→10:45)
[2016-12-15] MEDS: NITROGLYCERIN 1000MCG/10ML SYRINGE INTRACORON ONE ×4 (10:22→10:49)
[2016-12-15] MEDS ORDERED: ATROPINE SULFATE 0.1 MG/ML 10ML SYRINGE IVP ONE (10:34)
[2016-12-15] MEDS ORDERED: DOPamine DRIP 800 MG in DEXTROSE/WATER 1 500ML.BAG IV ONE (10:37)
[2016-12-15] MEDS ORDERED: LIDOCAINE 2% INJ 20 MG/ML (20 ML MDV) ONE (10:52)
[2016-12-15] MEDS ORDERED: IOHEXOL 350 MG/ML 100 ML BOTTLE INJ ONE (10:55)
[2016-12-15] MEDS ORDERED: TICAGRELOR 90 MG TAB ONE (11:03)
[2016-12-15] MEDS ORDERED: TICAGRELOR 90 MG TAB PO ONE (11:07)
[2016-12-15 12:15] LABS: Glucose,Whole Blood 210 mg/dL (75-99)
[2016-12-15] MEDS: HYDROcodone/APAP 7.5-325MG 1 EACH TAB PO PRN (14:23)
--- NOTE | 2016-12-15 15:34 | P.PN ---
Subjective Date of service 12/15/2016. Progress Note being dictated for Dr. Mcmanus. Interval history: This is 66-year-old gentleman admitted with chest pain, and multiple other medical issues. Evaluated by cardiology in a patient underwent cardiac catheterization, angioplasty with 2 stents to the RCA this morning. Cath. reported 3 vessel CAD with 95% stenosis involving the PLV branch with patent stents from prior angioplasties. Tolerated procedure well. Telemetry sinus bradycardia to sinus rhythm, heart rates 50s to 70s. Denies chest pain, palpitations or increasing shortness of breath. Objective - Vital Signs Vital signs: Vital Signs Temp 96.9 F L 12/15/16 08:00 Pulse 79 12/15/16 08:00 Resp 14 12/15/16 08:00 BP 115/54 12/15/16 08:00 Pulse Ox 95 12/15/16 08:00 Intake & Output 12/14/16 12/15/16 12/15/16 18:59 06:59 18:59 Intake Total 233.698 5743.056 547.941 Output Total 1200 Balance 833.950 0887.056 547.941 Weight 103 kg 101.9 kg Intake: IV 836.8 298.0 Heparin Sodium,Porcine/ 516.8 D5w Pmx 25,000 unit In Dextrose/Water 1 500ml. bag @ 9.738 UNITS/KG/HR 20 mls/hr IV .Q24H [facility] Rx #:[id number] Sodium Chloride 0.9% 1, 320 000 ml @ 20 mls/hr IV . Q24H [facility] Rx#:[id number] Intake, IV Titration 261.000 570.256 249.941 Amount Heparin Sodium,Porcine/ 261.000 470.256 249.941 D5w Pmx 25,000 unit In Dextrose/Water 1 500ml. bag @ 9.738 UNITS/KG/HR 20 mls/hr IV .Q24H [facility] Rx #:[id number] Magnesium Sulfate-D5w Pmx 100 1 gm In Dextrose/Water 1 100ml.bag @ 100 mls/hr IVPB Q1H [facility] Rx#: [id number] Oral 460 840 0 Output: Urine 1200 Other: Voiding Method Urinal Urinal Urinal # Voids 1 2 - Exam PHYSICAL EXAM: VITAL SIGNS: [As above GENERAL: [Lying flat in bed, no acute distress] HEENT: [Pupils equal conjunctiva normal.] NECK: [Supple, no JVD] RESPIRATORY EFFORT:[Normal] LUNGS: [Clear to auscultation, no wheezing, no crackles, rhonchi] CARDIOVASCULAR[regular S1 and S2, bradycardic, no edema] GI: [Abdomen soft, nontender, positive bowel sounds.] PSYCH: [Alert and oriented -3, mood and affect normal.] NEURO: No focal deficits - Labs CBC & Chem 7: 12/14/16 05:32 12/14/16 05:32 Labs: Abnormal Lab Results - Last 24 Hours (Table) 12/14/16 12/14/16 12/15/16 Range/Units 16:34 19:57 06:10 APTT 47.1 H (22.0-30.0) sec POC Glucose (mg/dL) 224 H 259 H (75-99) mg/dL 12/15/16 12/15/16 Range/Units 06:21 11:25 APTT (22.0-30.0) sec POC Glucose (mg/dL) 197 H 210 H (75-99) mg/dL Assessment and Plan Plan: 1. [Chest pain, status post cardiac catheterization, angioplasty with 2 stents to the RCA]. 2. [Hypertension]. 3. [Dyslipidemia]. 4. [Diabetes mellitus type II]. 5. [Incidental finding of cholelithiasis, no further intervention at this time]. 6. [Depression]. Plan: Continue on current medication regime ,monitoring and symptomatic treatment. Metformin remains on hold, continue on sliding scale. Blood sugars elevated ranging 190s to 200s, pre-meal insulin added to med regime. Close monitoring of Accu-Cheks. Discharge planning in progress for tomorrow pending cardiology clearance. Further recommendations to follow. The impression and plan of care has been dictated as directed. : I performed a H&P examination of this patient and discussed the same with the dictator. I agree with the dictator's note. Any additional findings/opinions/ etc. will be noted.
[2016-12-15 16:40] LABS: Glucose,Whole Blood 242 mg/dL (75-99)
[2016-12-15] MEDS: SODIUM CHLORIDE 0.9% 1,000 ML IV SCH (17:17)
[2016-12-15 20:41] LABS: Glucose,Whole Blood 285 mg/dL (75-99)
[2016-12-15] MEDS ORDERED: ATORVASTATIN 80 MG TAB PO SCH (21:00)
[2016-12-15] MEDS ORDERED: HYDROCHLOROTHIAZIDE 12.5 MG CAP PO SCH (21:00)
[2016-12-15] MEDS: MONTELUKAST 10 MG TAB PO SCH (21:21)
[2016-12-15] MEDS: traZODone HCL 50 MG TAB PO SCH (21:22)
[2016-12-15] MEDS: PRAZOSIN 1 MG CAP PO SCH (21:22)
[2016-12-16] MEDS: NITROGLYCERIN OINT 1 INCH/GM PACKET TOPICAL SCH ×2 (01:03→06:29)
[2016-12-16 06:08] LABS: Glucose,Whole Blood 256 mg/dL (75-99)
[2016-12-16] MEDS: INSULIN LISPRO (humaLOG) 300 UNIT/3 ML VIAL SQ SCH ×2 (06:53→07:02)
[2016-12-16] MEDS: GEMFIBROZIL 600 MG TAB PO SCH (06:53)
[2016-12-16 07:08] LABS: CH 29.4; CHCM 33.3; HCT 33.4 % (39.0-53.0); HGB 11.3 gm/dL (13.0-17.5); MCH 29.9 pg (25.0-35.0); MCHC 33.7 g/dL (31.0-37.0); MCV 88.7 fL (80.0-100.0); Mean Platelet Volume 6.7; RBC 3.77 m/uL (4.30-5.90); RDW 13.3 % (11.5-15.5); WBC 7.9 k/uL (3.8-10.6)
--- NOTE | 2016-12-16 07:20 | PTCA ---
DATE OF SERVICE: 12/15/2016 PROCEDURE: PTCA and stenting of distal RCA and PLV branch of RCA. PERFORMED BY: Dr. Adal Kline. CLINICAL INFORMATION: Mr. Boone Rudolph is a 66-year-old gentleman with a history of RCA and also probably LAD stenting performed in the past at [facility]. He presented to the hospital with chest pain. His troponins were unremarkable, but pain was recurrent and Dr. Horn performed a cardiac catheterization on this patient. Study revealed that his previously stented RCA in the proximal portion was patent, but the PLV branch had a 95% stenosis and the distal RCA also had a fairly significant lesion. He was advised intervention that was performed in the same setting. PROCEDURE NOTE: The existing 6 [place] introducer in the right femoral artery was used to perform the procedure. I used a standard right [place]-type guide catheter to cannulate the right coronary artery. I used a whisper wire and with this wire, I crossed the lesion in the distal RCA. I kept this in the PLV, but I had difficulty crossing the PLV lesion. I then switched over to a BMW wire and with this I was able to cross the tight lesion in the PLV branch. I predilated the PLV branch lesion with a 2.25 caliber, 12 mm long balloon. Multiple inflations were given. I then advanced a 2.25 caliber, 12 cm long Xience stent and deployed this in the PLV branch with a very good angiographic result. I then addressed the distal RCA. This distal RCA was addressed with a 2.75 caliber, 8 mm long Xience stent and this was deployed at 14 atmospheres. Excellent angiographic result without complication was achieved. Both the sites that were stented were widely patent with a very good flow. Patient had transient second-degree AV block when I occluded the PLV branch because there was AV alena branch that was coming off from there. However, overall result was excellent without any complication. Results were discussed with the patient and his and he was sent to the room in a stable condition. ASSESSMENT: From a pre-PTCA stenosis of 95% involving the PLV branch and 70% in the distal RCA after stenting the residual stenosis was 0%. Two drug-eluting stents were used. Patient tolerated the procedure well without complications.
[2016-12-16] MEDS: INSULIN DETEMIR 100 UNIT/ML 10 ML VIAL SQ SCH (07:35)
[2016-12-16 07:37] LABS: Anion Gap 16 mmol/L; Blood Urea Nitrogen 31 mg/dL (9-20); Carbon Dioxide 19 mmol/L (22-30); Chloride 106 mmol/L (98-107); Glucose 249 mg/dL (74-99); Non-African American GFR(MDRD) >60 (>60 ml/min/1.73 sqM); Potassium 4.6 mmol/L (3.5-5.1); Sodium 141 mmol/L (137-145)
[2016-12-16] MEDS: ASPIRIN 81 MG CHEW PO SCH (07:37)
[2016-12-16] MEDS: ASCORBIC ACID 500 MG TAB PO SCH (07:37)
[2016-12-16] MEDS: ARIPiprazole 5 MG TAB PO SCH (07:37)
[2016-12-16] MEDS: BISOPROLOL 5 MG TAB PO SCH (07:38)
[2016-12-16] MEDS: CHOLECALCIFEROL 1,000 UNIT TAB PO SCH (07:38)
[2016-12-16] MEDS: CITALOPRAM HYDROBROMIDE 20 MG TAB PO SCH (07:39)
[2016-12-16] MEDS: ISOSORBIDE MONONITRATE ER 30 MG TAB.ER.24H PO SCH (07:39)
[2016-12-16] MEDS: FAMOTIDINE 20 MG TAB PO SCH (07:39)
[2016-12-16] MEDS: COLCHICINE 0.6 MG TAB PO SCH (07:39)
[2016-12-16] MEDS: LISINOPRIL 10 MG TAB PO SCH (07:40)
[2016-12-16] MEDS: TICAGRELOR 90 MG TAB PO SCH (07:40)
[2016-12-16] MEDS: LINAGLIPTIN 5 MG TABLET PO SCH (07:40)
[2016-12-16 08:59] VITALS: BP 145/67; PULSE 78; RESP 18; TEMP 97.3
[2016-12-16] MEDS ORDERED: METOPROLOL TARTRATE 12.5 MG TAB PO SCH (09:00)
[2016-12-16] MEDS: SYMBICORT 80-4.5 MCG INHALER INHALATION SCH (09:20)
--- NOTE | 2016-12-16 14:49 | PN ---
Boone is a 66-year-old gentleman who is admitted to hospital with unstable angina. Underwent cardiac catheterization and angioplasty of the PLV. Patient is doing well and is free of symptoms, ambulating without any problems. On exam, afebrile. Vital signs are stable. There is no jugular venous distention. Chest exam reveals good air entry bilaterally. Heart exam reveals first and second heart sounds. No gallop. Abdomen is soft. Exam of the extremities did not reveal edema. Peripheral pulses are felt. Groin is free of bleeding, bruit, hematoma. Foot pulses are intact. Labs show a hemoglobin of 11.3, Discharge medications include Lopid, Pepcid, aspirin, Zestril, Lopressor, Imdur, Brilinta, and Lipitor. ASSESSMENT Unstable angina, status post catheterization and angioplasty of a PLV branch. PLAN: Patient is doing well. He is stable to be discharged home. Follow up with Dr. Forrest and he will have renal functions checked as outpatient.
--- NOTE | 2016-12-17 09:47 | P.DS ---
Providers Date of admission: 12/13/16 09:03 Expected date of discharge: 12/16/16 Attending physician: Allison Mcmanus Consults: Dr. Horn & Dr. MITCH Kline , Cardiology [facility] Course: Final Diagnoses: 1. [Chest pain, status post cardiac catheterization, angioplasty with 2 stents to the RCA]. 2. [Hypertension]. 3. [Dyslipidemia]. 4. [Diabetes mellitus type II]. 5. [Incidental finding of cholelithiasis, no further intervention at this time]. 6. [Depression]. Hospital course:This is 66-year-old gentleman admitted with chest pain, and multiple other medical issues. EKG did not reveal ischemic changes. Troponins negative 3 .Evaluated by cardiology,underwent cardiac catheterization, angioplasty with 2 stents to the RCA this morning. Cath. reported 3 vessel CAD with 95% stenosis involving the PLV branch with patent stents from prior angioplasties. Tolerated procedure well. Cleared by cardiology for discharge home. Patient is being discharged home in a stable condition with guarded prognosis. Patient Condition at Discharge: Stable Plan - Discharge Summary New Discharge Prescriptions: Atorvastatin [Lipitor] 80 mg PO HS #30 tab Nitroglycerin Sl Tabs [Nitrostat] 0.4 mg SUBLINGUAL Q5M PRN #25 tab PRN Reason: Chest Pain Ticagrelor [Brilinta] 90 mg PO BID #60 tablet Discharge Medication List ARIPiprazole [Abilify] 5 mg PO DAILY 11/03/14 [History] Citalopram Hydrobromide [Citalopram HBr] 40 mg PO DAILY 11/03/14 [History] Saxagliptin HCl [Onglyza] 5 mg PO DAILY 11/03/14 [History] Ascorbic Acid [Vitamin C] 500 mg PO DAILY 01/17/16 [History] Cholecalciferol [Vitamin D3] 2,000 unit PO DAILY 01/17/16 [History] Gemfibrozil [Lopid] 600 mg PO AC-BID 01/17/16 [History] Insulin Detemir [Levemir] 78 unit SQ BID 01/17/16 [History] HYDROcodone/APAP 7.5-325MG [[place] 7.5-325] 1 tab PO Q8H PRN 07/02/16 [History] [place]-3 Fatty Acids/Fish Oil [Fish Oil 1,000 mg Softgel] 1 cap PO DAILY [History] Prazosin HCl 2 mg PO HS 07/02/16 [History] traZODone HCL 150 mg PO HS 07/02/16 [History] Aspirin EC [Ecotrin Low Dose] 81 mg PO DAILY 11/20/16 [History] Bisoprolol Fumarate [Zebeta] 5 mg PO DAILY 11/20/16 [History] Budesonide/Formoterol Fumarate [Symbicort 80-4.5 Mcg Inhaler] 2 puff INHALATION RT-BID 11/20/16 [History] Colchicine 0.6 mg PO DAILY 11/20/16 [History] Insulin Aspart [NovoLOG] 10 - 12 unit SQ AC-TID 11/20/16 [History] Isosorbide Mononitrate ER [Imdur] 30 mg PO DAILY 11/20/16 [History] Montelukast [Singulair] 10 mg PO HS 11/20/16 [History] Famotidine [Pepcid] 20 mg PO BID #40 tab 11/22/16 [Rx] Atorvastatin [Lipitor] 80 mg PO HS #30 tab 12/16/16 [Rx] Hydrochlorothiazide [Hydrodiuril] 12.5 mg PO HS #0 12/16/16 [Rx] Lisinopril [Zestril] 10 mg PO DAILY #0 12/16/16 [Rx] Metoprolol Tartrate [Lopressor] 12.5 mg PO DAILY #0 12/16/16 [Rx] Nitroglycerin Sl Tabs [Nitrostat] 0.4 mg SUBLINGUAL Q5M PRN #25 tab 12/16/16 [Rx ] Ticagrelor [Brilinta] 90 mg PO BID #60 tablet 12/16/16 [Rx] metFORMIN HCL 1,000 mg PO BID #0 12/16/16 [Rx] Follow up Appointment(s)/Referral(s): Shantel Forrest MD [STAFF PHYSICIAN] - 1 Week ([facility] will call to schedule your appointment.) Andrea Fierro DO [Primary Care Provider] - 12/18/16 8:00 am (Gina) Activity/Diet/Wound Care/Special Instructions: Diet: Cardiac, consistent carb Accu-Cheks before meals and at bedtime Activity: Limited until follow-up Discharge Disposition: HOME SELF-CARE
== END 2016-12-16 11:30 | disposition home or self-care (01) | DRG 247 ==
LOC: EC 16:46 → 3OBS 19:07 → OBSVTOIN 12-13 09:03 → 6SEL 12-13 11:00
PROVIDERS: ADMIT Internal Medicine; ATTEND Internal Medicine
PROC: 027135Z Dilation of Coronary Artery, Two Arteries with Two Drug-eluting Intraluminal Devices, Percutaneous Approach (ICD-10-PCS; principal; 2016-12-15 09:07)
PROC: 4A023N7 Measurement of Cardiac Sampling and Pressure, Left Heart, Percutaneous Approach (ICD-10-PCS; 2016-12-15 09:07)
PROC: B2111ZZ Fluoroscopy of Multiple Coronary Arteries using Low Osmolar Contrast (ICD-10-PCS; 2016-12-15 09:07)
DX: R07.9 Chest pain, unspecified (principal); I25.110 Atherosclerotic heart disease of native coronary artery with unstable angina pectoris; I48.91 Unspecified atrial fibrillation; J44.9 Chronic obstructive pulmonary disease, unspecified; I10 Essential (primary) hypertension; R00.1 Bradycardia, unspecified; F32.9 Major depressive disorder, single episode, unspecified; E11.9 Type 2 diabetes mellitus without complications; E78.5 Hyperlipidemia, unspecified; G47.30 Sleep apnea, unspecified; K80.20 Calculus of gallbladder without cholecystitis without obstruction; M10.9 Gout, unspecified; H26.9 Unspecified cataract; Z79.4 Long term (current) use of insulin; Z79.82 Long term (current) use of aspirin; Z79.01 Long term (current) use of anticoagulants; Z79.899 Other long term (current) drug therapy; Z87.891 Personal history of nicotine dependence; Z95.5 Presence of coronary angioplasty implant and graft; Z82.49 Family history of ischemic heart disease and other diseases of the circulatory system
CPT/HCPCS: 36415; 71020; 76705; 80048; 80053; 80061; 82150; 82550; 82553; 83036; 83690; 83735; 84484; 85025; 85027; 85610; 85730; 93005; 93306; 93458; 94640; 94760; 96361; 96365; 96375; 99285

== ENCOUNTER 2017-02-19 17:40 | Emergency (ER) | payer OTHER, MEDICARE ==
[2017-02-19 17:54] VITALS: BP 139/65; PULSE 75; RESP 18; TEMP 96.9
--- NOTE | 2017-02-19 18:21 | ED ---
Lower Extremity Injury HPI - General Chief Complaint: Extremity Injury, Lower Stated Complaint: LEFT FOOT/HEEL PAIN Time Seen by Provider: 02/19/17 18:07 Source: patient, RN notes reviewed Mode of arrival: wheelchair Limitations: no limitations - History of Present Illness Initial Comments: Patient is 66-year-old male chief complaint of left foot pain after walking with new shoes to his mailbox yesterday. He reports that they he was wearing new shoes and there hard soles. Patient reports trying to break them in. Patient states that today since then he's been having pain over his foot. He took a Vicodin for pain. He states that he is able to walk on it. He is diabetic is concerned of some type of blister issue. Patient's reports that she did soak the foot and apply some diabetic cream on it. Patient denies any toe or calf pain.Patient denies any recent fever, chills, shortness of breath, chest pain, back pain, abdominal pain, nausea vomiting, numbness or tingling, dysuria or hematuria, constipation or diarrhea, headaches or visual changes, or any other current symptoms - Related Data Home Medications Medication Instructions Recorded Confirmed ARIPiprazole [Abilify] 5 mg PO DAILY 11/03/14 02/19/17 Citalopram Hydrobromide 40 mg PO DAILY 11/03/14 02/19/17 [Citalopram HBr] Saxagliptin HCl [Onglyza] 5 mg PO DAILY 11/03/14 02/19/17 Ascorbic Acid [Vitamin C] 500 mg PO DAILY 01/17/16 02/19/17 Cholecalciferol [Vitamin D3] 2,000 unit PO DAILY 01/17/16 02/19/17 Insulin Detemir [Levemir] 78 unit SQ BID 01/17/16 02/19/17 HYDROcodone/APAP 7.5-325MG [[place] 1 tab PO Q8H PRN 07/02/16 02/19/17 7.5-325] [place]-3 Fatty Acids/Fish Oil [Fish 1 cap PO DAILY 07/02/16 02/19/17 Oil 1,000 mg Softgel] Prazosin HCl 2 mg PO HS 07/02/16 02/19/17 traZODone HCL 150 mg PO HS 07/02/16 02/19/17 Aspirin EC [Ecotrin Low Dose] 81 mg PO DAILY 11/20/16 02/19/17 Bisoprolol Fumarate [Zebeta] 5 mg PO DAILY 11/20/16 02/19/17 Colchicine 0.6 mg PO DAILY 11/20/16 02/19/17 Insulin Aspart [NovoLOG] 10 - 12 unit SQ AC-TID 11/20/16 02/19/17 Isosorbide Mononitrate ER [Imdur] 30 mg PO DAILY 11/20/16 02/19/17 Montelukast [Singulair] 10 mg PO HS 11/20/16 02/19/17 Albuterol Sulfate [Proventil Hfa] 1 - 2 puff INHALATION RT-QID PRN 02/19/17 Budesonide/Formoterol Fumarate 2 puff INHALATION RT-BID 02/19/17 02/19/17 [Symbicort 160-4.5 Mcg Inhaler] Metoprolol Tartrate [Lopressor] 25 mg PO BID 02/19/17 02/19/17 Metoprolol Tartrate [Lopressor] 25 mg PO DAILY 02/19/17 02/19/17 Previous Rx's Medication Instructions Recorded Atorvastatin [Lipitor] 80 mg PO HS #30 tab 12/16/16 Nitroglycerin Sl Tabs [Nitrostat] 0.4 mg SUBLINGUAL Q5M PRN #25 tab 12/16/16 Ticagrelor [Brilinta] 90 mg PO BID #60 tablet 12/16/16 metFORMIN HCL 1,000 mg PO BID #0 12/16/16 Hydrochlorothiazide [Hydrodiuril] 25 mg PO HS #0 02/19/17 Lisinopril [Zestril] 10 mg PO DAILY #0 02/19/17 Allergies Allergy/AdvReac Type Severity Reaction Status Date / Time No Known Allergies Allergy Verified 02/19/17 18:48 Review of Systems ROS Statement: Those systems with pertinent positive or pertinent negative responses have been documented in the HPI. ROS Other: All systems not noted in ROS Statement are negative. Past Medical History Past Medical History: Atrial Fibrillation, Coronary Artery Disease (CAD), COPD, Diabetes Mellitus, Hypertension, Pneumonia, Sleep Apnea/CPAP/BIPAP, Syncope Additional Past Medical History / Comment(s): sleep apnea with CPAP, KIDNEY STONES, GOUT, CATARACTS_HAD LASIK SX, BIPOLAR DEPRESSION History of Any Multi-Drug Resistant Organisms: None Reported Past Surgical History: Heart Catheterization With Stent, Hernia Repair, Orthopedic Surgery, Tonsillectomy Additional Past Surgical History / Comment(s): eye lid cyst removed,, pilonidal cyst, lasik, bilateral knee sx,LITHOTRIPSY, COLONOSCOPY,05-15-16 at [facility] had heart cath w/1 stent then again 05-21-16 had 2 more stents. Past Anesthesia/Blood Transfusion Reactions: No Reported Reaction Date of Last Stent Placement:: 05-21-16 Past Psychological History: Bipolar, Depression Additional Psychological History / Comment(s): at time of this admit asked pt if he currently is depressed or have any thoughts of harming self-he stated no" asked if he currently feels maintained on meds stated "yes". pt admitted to 5 past suicide attempts. pt lives at home with his common law ekaterina. 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 Smoking Status: Former smoker Past Alcohol Use History: None Reported Additional Past Alcohol Use History / Comment(s): started smoking at age 16(1965 ) stopped at age 65() smoked, 1ppd. Past Drug Use History: None Reported - Past Family History Mother Family Medical History: Coronary Artery Disease (CAD) Father Family Medical History: Coronary Artery Disease (CAD) Additional Family Medical History / Comment(s): emphysema General Exam - General Exam Comments Initial Comments: Pleasant 66-year-old male. No distress. Limitations: no limitations General appearance: alert, in no apparent distress Head exam: Present: atraumatic, normocephalic, normal inspection Eye exam: Present: normal appearance, PERRL, EOMI. Absent: scleral icterus, conjunctival injection, periorbital swelling ENT exam: Present: normal exam, mucous membranes moist Neck exam: Present: normal inspection. Absent: tenderness, meningismus, lymphadenopathy Respiratory exam: Present: normal lung sounds bilaterally. Absent: respiratory distress, wheezes, rales, rhonchi, stridor Cardiovascular Exam: Present: regular rate, normal rhythm, normal heart sounds. Absent: systolic murmur, diastolic murmur, rubs, gallop, clicks GI/Abdominal exam: Present: soft, normal bowel sounds. Absent: distended, tenderness, guarding, rebound, rigid Extremities exam: Present: normal inspection, full ROM, normal capillary refill. Absent: tenderness, pedal edema, joint swelling, calf tenderness Left Lower Leg exam: Present: normal inspection, full ROM Ankle exam: Present: normal inspection, full ROM Foot/Toe exam: Present: normal inspection, full ROM Neurovascular tendon exam: Present: no vascular compromise Gait: observed and normal Back exam: Present: normal inspection Neurological exam: Present: alert, oriented X3, CN II-XII intact Psychiatric exam: Present: normal affect, normal mood Skin exam: Present: warm, dry, intact, normal color. Absent: rash Course Vital Signs 02/19/17 17:50 Temperature 96.9 F L Pulse Rate 75 Respiratory 18 Rate Blood Pressure 139/65 O2 Sat by Pulse 95 Oximetry Medical Decision Making - Medical Decision Making Patient is 66-year-old male with left heel and foot pain after walking with issues for one day. Patient x-ray of the foot was negative. No evidence of blistering or skin lesions. Patient has been advised to monitor for these things. Discussed because he is diabetic his prone to poor wound healing. Discussed that he needs follow-up with primary care provider if fever persists symptoms. Patient will be discharged with an Niranjan wrap to apply over the foot and instructed to keep it elevated. Patient agrees treatment plan will comply. - Radiology Data Radiology results: report reviewed Negative left foot exam Disposition Clinical Impression: Heel pain Disposition: HOME SELF-CARE Condition: Good Additional Instructions: Monitor for any blistering over the area. Keep the foot elevated. Wear the Niranjan wrap as needed. Patient advised to follow with primary care provider if symptoms continue to persist. Referrals: Andrea Fierro DO [Primary Care Provider] - 1-2 days Time of Disposition: 18:48
--- NOTE | 2017-02-19 18:30 | XR ---
EXAMINATION TYPE: XR foot complete LT DATE OF EXAM: 02/19/2017 6:21 PM COMPARISON: NONE HISTORY: Lateral pain TECHNIQUE: 3 views FINDINGS: I see no fracture nor dislocation. Metatarsals appear intact. There are no erosions. IMPRESSION: Negative left foot exam.
== END 2017-02-19 18:48 | disposition home or self-care (01) ==
LOC: EC 17:40
DX: M79.672 Pain in left foot (principal); I48.91 Unspecified atrial fibrillation; I25.10 Atherosclerotic heart disease of native coronary artery without angina pectoris; J44.9 Chronic obstructive pulmonary disease, unspecified; E11.9 Type 2 diabetes mellitus without complications; I10 Essential (primary) hypertension; G47.30 Sleep apnea, unspecified; F31.9 Bipolar disorder, unspecified; M10.9 Gout, unspecified; Z95.5 Presence of coronary angioplasty implant and graft; Z79.4 Long term (current) use of insulin; Z79.82 Long term (current) use of aspirin; Z79.84 Long term (current) use of oral hypoglycemic drugs; Z79.899 Other long term (current) drug therapy; Z87.891 Personal history of nicotine dependence
CPT/HCPCS: 99283

== ENCOUNTER 2017-03-08 21:53 | Observation (INO) | payer OTHER, MEDICARE ==
--- NOTE | 2017-03-08 22:20 | ED ---
Chest Pain HPI - General Chief Complaint: Chest Pain Stated Complaint: Chest Pain Time Seen by Provider: 03/08/17 22:11 Source: patient Mode of arrival: wheelchair Limitations: no limitations - History of Present Illness Initial Comments: This patient is 66-year-old man who states that he had onset of right-sided chest pain that he describes as constant, sharp, moderate intensity, and it gets worse if he moves his right arm or presses on it. The pain also radiates to his right arm. He has not noted any factors that seem to relieve the pain. At home he tried 3 nitroglycerin tablets, aspirin, [place], and ibuprofen. The patient states that he had been seated at his desk when the pain came on and that it did not seem to be exertional. Patient denies any associated symptoms. MD Complaint: chest pain Onset/Timin -: minutes(s) Onset: during rest Pain Location: right chest Pain Radiation: RUE Severity: moderate Quality: sharp Consistency: constant Improves With: nothing Worsens With: palpation, movement Treatments Prior to Arrival: aspirin, nitroglycerin, other (Ibuprofen, [place]) - Related Data Home Medications Medication Instructions Recorded Confirmed ARIPiprazole [Abilify] 5 mg PO DAILY 11/03/14 03/08/17 Citalopram Hydrobromide 40 mg PO DAILY 11/03/14 03/08/17 [Citalopram HBr] Saxagliptin HCl [Onglyza] 5 mg PO DAILY 11/03/14 03/08/17 Ascorbic Acid [Vitamin C] 500 mg PO DAILY 01/17/16 03/08/17 Cholecalciferol [Vitamin D3] 2,000 unit PO DAILY 01/17/16 03/08/17 Insulin Detemir [Levemir] 78 unit SQ BID 01/17/16 03/08/17 HYDROcodone/APAP 7.5-325MG [[place] 1 tab PO Q8H PRN 07/02/16 03/08/17 7.5-325] [place]-3 Fatty Acids/Fish Oil [Fish 1 cap PO DAILY 07/02/16 03/08/17 Oil 1,000 mg Softgel] Prazosin HCl 2 mg PO HS 07/02/16 03/08/17 traZODone HCL 150 mg PO HS 07/02/16 03/08/17 Aspirin EC [Ecotrin Low Dose] 81 mg PO DAILY 11/20/16 03/08/17 Bisoprolol Fumarate [Zebeta] 5 mg PO DAILY 11/20/16 03/08/17 Colchicine 0.6 mg PO DAILY 11/20/16 03/08/17 Insulin Aspart [NovoLOG] 10 - 12 unit SQ AC-TID 11/20/16 03/08/17 Isosorbide Mononitrate ER [Imdur] 30 mg PO DAILY 11/20/16 03/08/17 Montelukast [Singulair] 10 mg PO HS 11/20/16 03/08/17 Albuterol Sulfate [Proventil Hfa] 1 - 2 puff INHALATION RT-QID PRN 02/19/1705/18 Budesonide/Formoterol Fumarate 2 puff INHALATION RT-BID 02/19/17 03/08/17 [Symbicort 160-4.5 Mcg Inhaler] Metoprolol Tartrate [Lopressor] 25 mg PO BID 02/19/17 03/08/17 Metoprolol Tartrate [Lopressor] 25 mg PO DAILY 02/19/17 03/08/17 Previous Rx's Medication Instructions Recorded Atorvastatin [Lipitor] 80 mg PO HS #30 tab 12/16/16 Nitroglycerin Sl Tabs [Nitrostat] 0.4 mg SUBLINGUAL Q5M PRN #25 tab 12/16/16 Ticagrelor [Brilinta] 90 mg PO BID #60 tablet 12/16/16 metFORMIN HCL 1,000 mg PO BID #0 12/16/16 Hydrochlorothiazide [Hydrodiuril] 25 mg PO HS #0 02/19/17 Lisinopril [Zestril] 10 mg PO DAILY #0 02/19/17 Allergies Allergy/AdvReac Type Severity Reaction Status Date / Time No Known Allergies Allergy Verified 03/08/17 21:57 Review of Systems ROS Statement: Those systems with pertinent positive or pertinent negative responses have been documented in the HPI. ROS Other: All systems not noted in ROS Statement are negative. Constitutional: Denies: fever, chills Respiratory: Denies: cough, dyspnea Cardiovascular: Reports: as per HPI, chest pain. Denies: palpitations, edema, syncope Gastrointestinal: Denies: abdominal pain, nausea, vomiting Genitourinary: Denies: dysuria Musculoskeletal: Denies: back pain Skin: Denies: rash Neurological: Denies: headache, weakness Psychiatric: Denies: anxiety EKG Findings - EKG Results: EKG: interpreted by KEITH MULLEN, sinus rhythm (Rate 63 bpm), normal axis, normal QRS, normal ST/T, no acute changes - [place], Pacemaker, Normal: Normal tracing: normal tracing Past Medical History Past Medical History: Atrial Fibrillation, Coronary Artery Disease (CAD), COPD, Diabetes Mellitus, Hypertension, Pneumonia, Sleep Apnea/CPAP/BIPAP, Syncope Additional Past Medical History / Comment(s): sleep apnea with CPAP, KIDNEY STONES, GOUT, CATARACTS_HAD LASIK SX, BIPOLAR DEPRESSION History of Any Multi-Drug Resistant Organisms: None Reported Past Surgical History: Heart Catheterization With Stent, Hernia Repair, Orthopedic Surgery, Tonsillectomy Additional Past Surgical History / Comment(s): eye lid cyst removed,, pilonidal cyst, lasik, bilateral knee sx,LITHOTRIPSY, COLONOSCOPY,05-15-16 at [facility] had heart cath w/1 stent then again 05-21-16 had 2 more stents. Past Anesthesia/Blood Transfusion Reactions: No Reported Reaction Date of Last Stent Placement:: 05-21-16 Past Psychological History: Bipolar, Depression Additional Psychological History / Comment(s): at time of this admit asked pt if he currently is depressed or have any thoughts of harming self-he stated no" asked if he currently feels maintained on meds stated "yes". pt admitted to 5 past suicide attempts. pt lives at home with his common law ekaterina. 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 Smoking Status: Former smoker Past Alcohol Use History: None Reported Additional Past Alcohol Use History / Comment(s): started smoking at age 16(1965 ) stopped at age 65() smoked, 1ppd. Past Drug Use History: None Reported - Past Family History Mother Family Medical History: Coronary Artery Disease (CAD) Father Family Medical History: Coronary Artery Disease (CAD) Additional Family Medical History / Comment(s): emphysema General Exam Limitations: no limitations General appearance: alert, in no apparent distress Head exam: Present: atraumatic, normocephalic Eye exam: Present: normal appearance. Absent: scleral icterus, conjunctival injection ENT exam: Present: normal oropharynx Neck exam: Present: normal inspection, full ROM Respiratory exam: Present: normal lung sounds bilaterally, chest wall tenderness. Absent: respiratory distress, wheezes, rales, rhonchi, stridor, accessory muscle use, decreased breath sounds Cardiovascular Exam: Present: regular rate, normal rhythm, normal heart sounds. Absent: systolic murmur, diastolic murmur, rubs, gallop GI/Abdominal exam: Present: soft. Absent: distended, tenderness, guarding, rebound, rigid, mass Extremities exam: Present: normal capillary refill, pedal edema (There is trace edema at the top of the patient's sock bilaterally). Absent: calf tenderness Back exam: Present: normal inspection. Absent: CVA tenderness (R), CVA tenderness (L) Neurological exam: Present: alert Skin exam: Present: warm, dry, intact, normal color. Absent: rash Course Vital Signs 03/08/17 03/08/17 03/08/17 21:55 21:59 22:04 Temperature 98.2 F Pulse Rate 87 69 Pulse Rate [ 62 Axle Polisher ] Respiratory 20 20 Rate Blood Pressure 146/65 142/66 O2 Sat by Pulse 94 L 96 Oximetry 03/08/17 03/08/17 23:17 23:36 Temperature 98.2 F Pulse Rate 61 61 Pulse Rate [ Axle Polisher ] Respiratory 18 18 Rate Blood Pressure 131/52 152/72 O2 Sat by Pulse 95 94 L Oximetry Chest Pain MDM - MDM This patient is 66-year-old man who presents with right chest pain. There is definite chest wall component to his complaint, however the patient is stating that this is identical to the pains he was having when he required stent placement. Given his extensive history of previous CAD will admit the patient to have serial cardiac enzymes and telemetry monitoring. Disposition Clinical Impression: Chest pain Disposition: ADMITTED IP TO THIS HOSP Condition: Fair
[2017-03-08 22:43] LABS: Basophils # (A) 0.1 k/uL (0-0.2); Basophils % (A) 1 %; CH 29.5; CHCM 34.4; Eosinophils # (A) 0.3 k/uL (0-0.7); Eosinophils % (A) 4 %; HCT 33.6 % (39.0-53.0); HDW 2.96; HGB 11.3 gm/dL (13.0-17.5); Luc # (Auto) 0.29; Luc % (Auto) 4; Lymphocytes # (A) 1.4 k/uL (1.0-4.8); Lymphocytes % (A) 19 %; MCHC 33.6 g/dL (31.0-37.0); MCV 86.2 fL (80.0-100.0); Mean Platelet Volume 6.8; Monocytes # (A) 0.7 k/uL (0-1.0); Monocytes % (A) 10 %; Neutrophils # (A) 4.4 k/uL (1.3-7.7); Neutrophils % (A) 62 %; RDW 14.1 % (11.5-15.5); WBC 7.1 k/uL (3.8-10.6); WBC (Perox) 6.91
[2017-03-08 22:54] LABS: ALT 64 U/L (21-72); AST 39 U/L (17-59); Alkaline Phosphatase 143 U/L (38-126); Anion Gap 11 mmol/L; Blood Urea Nitrogen 26 mg/dL (9-20); Calcium 9.5 mg/dL (8.4-10.2); Carbon Dioxide 24 mmol/L (22-30); Chloride 102 mmol/L (98-107); Glucose 219 mg/dL (74-99); Magnesium 1.3 mg/dL (1.6-2.3); Non-African American GFR(MDRD) >60 (>60 ml/min/1.73 sqM); Potassium 4.7 mmol/L (3.5-5.1); Sodium 137 mmol/L (137-145); Total Bilirubin 0.3 mg/dL (0.2-1.3); Total Protein 6.6 g/dL (6.3-8.2)
--- NOTE | 2017-03-08 22:55 | XR ---
EXAM: XR Chest, 2 Views CLINICAL HISTORY: Reason: Chest Pain TECHNIQUE: Frontal and lateral views of the chest. COMPARISON: Chest radiographs 12/12/2016 FINDINGS: Lungs: Lungs are clear except for mild left base subsegmental atelectasis. No acute infiltrates or consolidations. Pleural space: No evidence of pleural effusion or pneumothorax. Heart: Heart size mildly enlarged. Mediastinum: Unremarkable. Bones/joints: Degenerative changes involve the mid and lower thoracic spine. IMPRESSION: Mild cardiomegaly. Left base subsegmental atelectasis. No evidence of acute cardiopulmonary disease
[2017-03-08] MEDS ORDERED: MAGNESIUM SULFATE-D5W PMX 1 GM in DEXTROSE/WATER 1 100ML.BAG IVPB ONE (23:31)
[2017-03-08] MEDS ORDERED: MORPHINE SULFATE 4 MG/ML SYRINGE IV STA (23:42)
[2017-03-08] MEDS ORDERED: NITROGLYCERIN SL TABS 0.4 MG TAB SUBLINGUAL PRN (23:43)
[2017-03-08] MEDS ORDERED: HYDROcodone/APAP 7.5-325MG 1 EACH TAB PO PRN (23:45)
[2017-03-08] MEDS ORDERED: ALBUTEROL NEBULIZED 2.5 MG/3 ML INHALATION PRN (23:45)
[2017-03-09] MEDS ORDERED: MORPHINE SULFATE 4 MG/ML SYRINGE IV PRN (00:08)
[2017-03-09 00:38] VITALS: BMI 33.0
[2017-03-09 06:22] LABS: Cholesterol 105 mg/dL (<200); HDL Cholesterol 26 mg/dL (40-60); Triglycerides 315 mg/dL (<150)
[2017-03-09 06:43] LABS: Creatine Kinase 556 U/L (55-170)
[2017-03-09 06:56] LABS: Troponin I <0.012 ng/mL (0.000-0.034)
[2017-03-09 06:57] LABS: Glucose,Whole Blood 208 mg/dL (75-99)
[2017-03-09 07:11] LABS: Creatine Kinase MB 5.9 ng/mL (0.0-2.4)
[2017-03-09] MEDS ORDERED: metFORMIN 500 MG TAB PO SCH (07:30)
[2017-03-09] MEDS ORDERED: SYMBICORT 160-4.5 MCG INHALER INHALATION SCH (08:00)
[2017-03-09] MEDS ORDERED: INSULIN DETEMIR 100 UNIT/ML 10 ML VIAL SQ SCH (09:00)
[2017-03-09] MEDS ORDERED: LINAGLIPTIN 5 MG TABLET PO SCH (09:00)
[2017-03-09] MEDS ORDERED: ARIPiprazole 5 MG TAB PO SCH (09:00)
[2017-03-09] MEDS ORDERED: CHOLECALCIFEROL 1,000 UNIT TAB PO SCH (09:00)
[2017-03-09] MEDS ORDERED: ISOSORBIDE MONONITRATE ER 30 MG TAB.ER.24H PO SCH (09:00)
[2017-03-09] MEDS ORDERED: ASPIRIN 325 MG TAB PO SCH (09:00)
[2017-03-09] MEDS ORDERED: CITALOPRAM HYDROBROMIDE 20 MG TAB PO SCH (09:00)
[2017-03-09] MEDS ORDERED: METOPROLOL TARTRATE 25 MG TAB PO SCH ×2 (09:00)
[2017-03-09] MEDS ORDERED: AMINOPHYLLINE 500 MG/20 ML VIAL IV PRN (09:09)
[2017-03-09] MEDS ORDERED: REGADENOSON 0.4 MG/5 ML SYRINGE IV ONE (09:09)
--- NOTE | 2017-03-09 09:09 | P.CRDCN ---
History of Present Illness Consult date: 03/09/17 History of present illness: This is a pleasant 66-year-old gentleman who sees Dr. Horn in the office as an outpatient with known history of CAD who just underwent in December 2016 heart catheterization and stenting of the RCA by Dr. MITCH Kline. At that time he was found to have disease involving the left circumflex and LAD. He was in his usual state of health until yesterday when he was sitting, but his computer and started experiencing chest discomfort as sharp kind of discomfort across the chest was some radiation to the right arm. No associated symptoms of sweating or shortness of breath. The patient continues to have mild ongoing chest discomfort. He stated that is slightly worse with exertion. The EKG showed sinus rhythm without any significant changes. The cardiac enzymes were checked and came in to be unremarkable. Past Medical History Past Medical History: Atrial Fibrillation, Coronary Artery Disease (CAD), COPD, Diabetes Mellitus, Hyperlipidemia, Hypertension, Pneumonia, Sleep Apnea/CPAP/ BIPAP, Syncope Additional Past Medical History / Comment(s): sleep apnea with CPAP, KIDNEY STONES, GOUT, CATARACTS_HAD LASIK SX, BIPOLAR DEPRESSION History of Any Multi-Drug Resistant Organisms: None Reported Past Surgical History: Heart Catheterization With Stent, Hernia Repair, Orthopedic Surgery, Tonsillectomy Additional Past Surgical History / Comment(s): eye lid cyst removed,, pilonidal cyst, lasik, bilateral knee sx,LITHOTRIPSY, COLONOSCOPY,05-15-16 at [facility] had heart cath w/1 stent then again 05-21-16 had 2 more stents. Pt has a total of 5 stents Past Anesthesia/Blood Transfusion Reactions: No Reported Reaction Date of Last Stent Placement:: 05-21-16 Past Psychological History: Bipolar, Depression Additional Psychological History / Comment(s): at time of this admit asked pt if he currently is depressed or have any thoughts of harming self-he stated no" asked if he currently feels maintained on meds stated "yes". pt admitted to 5 past suicide attempts. pt lives at home with his common law ekaterina. pt served in the [employer] for 8 years. 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 Smoking Status: Former smoker Past Alcohol Use History: None Reported Additional Past Alcohol Use History / Comment(s): started smoking at age 16(1966 ) stopped at age 65() smoked, 1ppd. Past Drug Use History: None Reported - Past Family History Mother Family Medical History: Coronary Artery Disease (CAD) Father Family Medical History: Coronary Artery Disease (CAD) Additional Family Medical History / Comment(s): emphysema Medications and Allergies Home Medications Medication Instructions Recorded Confirmed Type ARIPiprazole [Abilify] 5 mg PO DAILY 11/03/14 03/09/17 History Citalopram Hydrobromide 40 mg PO DAILY 11/03/14 03/09/17 History [Citalopram HBr] Saxagliptin HCl [Onglyza] 5 mg PO DAILY 11/03/14 03/09/17 History Ascorbic Acid [Vitamin C] 500 mg PO DAILY 01/17/16 03/09/17 History Cholecalciferol [Vitamin D3] 2,000 unit PO DAILY 01/17/16 03/09/17 History Insulin Detemir [Levemir] 78 unit SQ BID 01/17/16 03/09/17 History HYDROcodone/APAP 7.5-325MG [[place] 1 tab PO Q8H PRN 07/02/16 03/09/17 History 7.5-325] [place]-3 Fatty Acids/Fish Oil [Fish 1 cap PO DAILY 07/02/16 03/09/17 History Oil 1,000 mg Softgel] Prazosin HCl 2 mg PO HS 07/02/16 03/09/17 History traZODone HCL 150 mg PO HS 07/02/16 03/09/17 History Aspirin EC [Ecotrin Low Dose] 81 mg PO DAILY 11/20/16 03/09/17 History Bisoprolol Fumarate [Zebeta] 5 mg PO DAILY 11/20/16 03/09/17 History Colchicine 0.6 mg PO DAILY 11/20/16 03/09/17 History Insulin Aspart [NovoLOG] 10 unit SQ AC-BID 11/20/16 03/09/17 History Isosorbide Mononitrate ER [Imdur] 30 mg PO DAILY 11/20/16 03/09/17 History Montelukast [Singulair] 10 mg PO HS 11/20/16 03/09/17 History Albuterol Sulfate [Proventil Hfa] 2 puff INHALATION RT-QID PRN 02/19/17 History Budesonide/Formoterol Fumarate 2 puff INHALATION RT-BID 02/19/17 03/09/17 History [Symbicort 160-4.5 Mcg Inhaler] Metoprolol Tartrate [Lopressor] 25 mg PO BID 02/19/17 03/09/17 History Insulin Aspart [NovoLOG] 12 unit SQ W/SUPPER 03/09/17 03/09/17 History Allergies Allergy/AdvReac Type Severity Reaction Status Date / Time No Known Allergies Allergy Verified 03/09/17 00:27 Physical Exam Vitals: Vital Signs Temp Pulse Pulse Resp BP Pulse Ox 03/09/17 08:00 16 03/09/17 07:38 97.5 F L 77 16 136/77 96 03/09/17 03:54 98.0 F 70 16 133/73 93 L 03/09/17 03:50 16 03/09/17 00:54 16 03/09/17 00:28 97.7 F 60 16 151/72 97 Intake and Output 03/08/17 03/09/17 03/09/17 22:59 06:59 14:59 Other: # Voids 1 Weight 104.3 kg - Constitutional General appearance: no acute distress - Respiratory Respiratory: bilateral: CTA - Cardiovascular Rhythm: regular Heart sounds: normal: S1, S2 Results 03/08/17 22:06 03/08/17 22:06 Cardiac Enzymes 03/09/17 Range/Units 05:25 CK-MB (CK-2) 5.9 H* (0.0-2.4) ng/mL Troponin I <0.012 (0.000-0.034) ng/mL Lipids 03/09/17 Range/Units 05:25 Triglycerides 315 H (<150) mg/dL Cholesterol 105 (<200) mg/dL HDL Cholesterol 26 L (40-60) mg/dL Current Medications Generic Name Dose Route Start Last Admin Trade Name Freq PRN Reason Stop Dose Admin Hydrocodone Bitart/Acetaminophen 1 each 03/08/17 23:45 [place] 7.5-325 PO Q8H PRN MODERATE Pain Albuterol Sulfate 2.5 mg 03/08/17 23:45 [place]olin Nebulized INHALATION RT-QID PRN Shortness Of Breath Aripiprazole 5 mg 03/09/17 09:00 Abilify PO DAILY [facility] Aspirin 325 mg 03/09/17 09:00 Aspirin PO DAILY [facility] Atorvastatin Calcium 80 mg 03/09/17 21:00 Lipitor PO HS [facility] Bisoprolol Fumarate 5 mg 03/09/17 09:00 Zebeta PO DAILY [facility] Budesonide/Formoterol Fumarate 2 puff 03/09/17 08:00 Symbicort 160-4.5 Mcg Inhaler INHALATION RT-BID [facility] Cholecalciferol 2,000 unit 03/09/17 09:00 Vitamin D3 PO DAILY [facility] Citalopram Hydrobromide 40 mg 03/09/17 09:00 Celexa PO DAILY [facility] Insulin Detemir 78 unit 03/09/17 09:00 Levemir SQ BID [facility] Isosorbide Mononitrate 30 mg 03/09/17 09:00 Imdur PO DAILY [facility] Linagliptin 5 mg 03/09/17 09:00 Tradjenta PO DAILY [facility] Metformin HCl 1,000 mg 03/09/17 07:30 Glucophage PO AC-BID [facility] Metoprolol Tartrate 25 mg 03/09/17 09:00 Lopressor PO BID [facility] Montelukast Sodium 10 mg 03/09/17 21:00 Singulair PO HS [facility] Morphine Sulfate 4 mg 03/09/17 00:08 Morphine Sulfate (Inj) IV Q4H PRN Severe Pain Nitroglycerin 0.4 mg 03/08/17 23:43 Nitrostat SUBLINGUAL Q5M PRN Chest Pain Prazosin HCl 2 mg 03/09/17 21:00 Minipress PO HS [facility] Trazodone HCl 150 mg 03/09/17 21:00 Desyrel PO HS [facility] Intake and Output 03/08/17 03/09/17 03/09/17 22:59 06:59 14:59 Other: # Voids 1 Weight 104.3 kg Assessment and Plan Plan: Assessment #1 chest discomfort concerning for angina #2 known severe CAD and prior stenting of the RCA #3 multiple risk factors for CAD Plan #1 I will review the last heart catheterization which was performed in December #2 further recommendation to follow the
[2017-03-09 11:09] LABS: Creatine Kinase 545 U/L (55-170)
[2017-03-09 11:22] LABS: Troponin I <0.012 ng/mL (0.000-0.034)
[2017-03-09 11:24] LABS: Creatine Kinase MB 5.4 ng/mL (0.0-2.4)
--- NOTE | 2017-03-09 12:07 | NM ---
EXAMINATION TYPE: NM stress lexiscan cardiolite DATE OF EXAM: 03/09/2017 12:00 PM COMPARISON: 09/17/2015 HISTORY: Chest pain TECHNIQUE: After the intravenous administration of 11.0 mCi Tc 99m Sestamibi - Cardiolite resting SP ECT images acquired 45 minutes post injection. The patient received 0.4mg Lexiscan, 27.5 mCi Tc 99m Sestamibi - Stress images obtained [address] injection FINDINGS: Review of stress and rest SPECT images demonstrates reduced uptake involving the inferior wall and ap ex myocardium with reduced wall motion activity. No stress-induced reversibility identified. Ejection fraction is 61%. IMPRESSION: No scintigraphic evidence for reversible ischemia.
[2017-03-09] MEDS: MAGNESIUM SULFATE-D5W PMX 1 GM in DEXTROSE/WATER 1 100ML.BAG IVPB SCH ×2 (12:18→13:25)
[2017-03-09 12:37] LABS: Glucose,Whole Blood 219 mg/dL (75-99)
[2017-03-09 13:18] VITALS: BP 143/65; PULSE 74; RESP 18; TEMP 96.6
--- NOTE | 2017-03-09 13:18 | EST ---
DATE OF SERVICE: 03/09/2017 AGE: 66Y SEX: M HT: 5'10" WT: 229 lbs. Protocol [place]: Other: Lexiscan Cardiolite Stage: Dur. of Exercise: *Heart Rate Blood Pressure *Rest: 59 Rest: 137/69 * *Max. Achieved: 76 Maximum BP: 150/74 85% PMHR: 100% PMHR: *METS: INDICATIONS: Chest pain. MEDICATIONS: Baseline EKG revealed a sinus mechanism without significant ST-T changes. There is poor R wave progression over precordial leads, which may be related to lead placement. With Lexiscan administration, heart rate changed from 59 to 76 beats per minute and blood pressure changed from 137/69 to 150/74. EKG remained unremarkable. Patient did not have any angina. By EKG criteria, this is an unremarkable Lexiscan stress test. The nuclear scan results, which are more pertinent, will be reported by the radiologist.
--- NOTE | 2017-03-09 20:04 | HP ---
H&P and DISCHARGE SUMMARY DATE OF ADMISSION: Patient is a 66-year-old with coronary artery disease. Patient had previous coronary artery disease and cardiac catheterization and stenting to RCA by Dr. Adal Kline. Patient was clinically doing well and patient was having sharp chest pain on the right side of the chest, constant in nature, not associated with shortness of breath or light-headedness or diaphoresis, non-pleuritic in nature, not associated with food. Patient denied any cough. Patient's chest pain is reproducible. Patient ( ) Cardiology. Underwent stress test which was negative. Patient after that was cleared by Cardiology. Patient will be discharged today. EKG did not show any ST-T wave changes. REVIEW OF SYSTEMS: CONSTITUTIONAL: No fever, no malaise, no fatigue. HEENT: No recent visual problems or hearing problems. Denied any sore throat. CARDIOVASCULAR: As described in HPI. PULMONARY: No shortness of breath, no cough, no hemoptysis. GASTROINTESTINAL: No diarrhea, no nausea, no vomiting, no abdominal pain. Normoactive bowel sounds. NEUROLOGICAL: No headaches, no weakness, no numbness. HEMATOLOGICAL: Denies any bleeding or petechiae. GENITOURINARY: Denies any burning micturition, frequency, or urgency. MUSCULOSKELETAL/RHEUMATOLOGICAL: As described in HPI. ENDOCRINE: Denies any polyuria or polydipsia. The rest of the 14 point review of systems is negative. PAST MEDICAL HISTORY: 1. Atrial fibrillation. 2. Coronary artery disease. 3. COPD. 4. Diabetes mellitus. 5. Hyperlipidemia. 6. Hypertension. 7. Pneumonia in the past. 8. Sleep apnea. Uses CPAP machine. 9. Cardiac stent placement and stent placement. 10. Hernia repair. 11. Orthopedic surgery. 12. Lithotripsy in the past. 13. Bipolar disorder. 14. Depression. SOCIAL HISTORY: Quit smoking in November 2015. Denied any alcohol abuse or any drug abuse. FAMILY HISTORY: Mother had coronary artery disease. Father had coronary artery disease. HOME MEDICATIONS: 1. Aripiprazole. 2. Citalopram. 3. Saxagliptin. 4. Ascorbic acid. 5. Cholecalciferol. 6. Levemir. 7. Hydrocodone/acetaminophen. 8. [place]-3 fatty acids. 9. Prazosin. 10. Trazodone. 11. Aspirin. 12. Bisoprolol. 13. Insulin Aspart. 14. Montelukast. 15. Albuterol. 16. Budesonide/Formoterol. 17. Metoprolol. ALLERGIES: NO KNOWN DRUG ALLERGIES. PHYSICAL EXAMINATION: VITAL SIGNS: Temperature 97.5, pulse of 77, respiratory rate of 16. Blood pressure is 136/77. Saturating at 96% on room air. GENERAL: The patient is alert and oriented x3, not in any acute distress. Well developed, well nourished. HEENT: Pupils are round and equally reacting to light. EOMI. No scleral icterus. No conjunctival pallor. Normocephalic, atraumatic. No pharyngeal erythema. No thyromegaly. CARDIOVASCULAR: S1 and S2 present. No murmurs, rubs, or gallops. PULMONARY: Chest is clear to auscultation, no wheezing or crackles. ABDOMEN: Soft, nontender, nondistended, normoactive bowel sounds. No palpable organomegaly. MUSCULOSKELETAL: No joint swelling or deformity. EXTREMITIES: No cyanosis, clubbing, or pedal edema. NEUROLOGICAL: Gross neurological examination did not reveal any focal deficits. SKIN: No rashes. LABORATORY DATA: CBC and CMP were reviewed; no significant abnormality except for mildly elevated blood sugars. Chest x-ray did not show any pneumonic process. EKG as mentioned above. ASSESSMENT AND PLAN: 1. Chest pain; appears to be mostly musculoskeletal. Patient's chest pain is reproducible. Rule out acute coronary syndrome, unstable angina. Stress test was negative. 2. Known severe coronary artery disease with prior stent into right coronary artery. 3. Hypertension. 4. Diabetes mellitus. 5. Hyperlipidemia. 6. Chronic obstructive pulmonary disease without any acute exacerbation. 7. Sleep apnea. 8. Atrial fibrillation, rate controlled. For above-mentioned chronic medical problems, will go ahead and continue his home medications. Patient will follow up ( ) Dr. Ken Horn in about a week to 2 weeks. ( ) 1800-calorie diet. This dictation is both H&P and discharge summary.
[2017-03-09] MEDS ORDERED: PRAZOSIN 1 MG CAP PO SCH (21:00)
[2017-03-09] MEDS ORDERED: MONTELUKAST 10 MG TAB PO SCH (21:00)
[2017-03-09] MEDS ORDERED: ATORVASTATIN 80 MG TAB PO SCH (21:00)
[2017-03-09] MEDS ORDERED: traZODone HCL 100 MG TAB PO SCH (21:00)
[2017-03-10] MEDS ORDERED: BISOPROLOL 5 MG TAB PO SCH (09:00)
== END 2017-03-09 15:04 | disposition home or self-care (01) ==
LOC: EC 21:53 → 3SUR 23:43 → 3OBS 03-09 11:57
PROVIDERS: ADMIT Hospitalist; ATTEND Hospitalist
DX: R07.89 Other chest pain (principal); I25.10 Atherosclerotic heart disease of native coronary artery without angina pectoris; Z95.5 Presence of coronary angioplasty implant and graft; I10 Essential (primary) hypertension; E11.9 Type 2 diabetes mellitus without complications; E78.5 Hyperlipidemia, unspecified; J44.9 Chronic obstructive pulmonary disease, unspecified; G47.30 Sleep apnea, unspecified; Z99.89 Dependence on other enabling machines and devices; I48.91 Unspecified atrial fibrillation; F31.9 Bipolar disorder, unspecified; M10.9 Gout, unspecified; Z79.899 Other long term (current) drug therapy; Z79.4 Long term (current) use of insulin; Z79.82 Long term (current) use of aspirin; Z79.51 Long term (current) use of inhaled steroids; Z79.84 Long term (current) use of oral hypoglycemic drugs; Z87.442 Personal history of urinary calculi; Z87.891 Personal history of nicotine dependence; Z87.01 Personal history of pneumonia (recurrent); Z82.5 Family history of asthma and other chronic lower respiratory diseases
CPT/HCPCS: 96366; 96367; 96372; 96365; 96375; 99285; 36415; 94640; 93005; 93017; 85379; 80061; 80053; 82550; 82553; 83735; 84484 ×2; 85025; 71020; 78452; G0378 ×2; A9500; J2270; J3475 ×2; J2785

== ENCOUNTER 2017-04-29 16:09 | Observation (INO) | payer OTHER, MEDICARE ==
--- NOTE | 2017-04-29 16:36 | ED ---
General Adult HPI - General Chief complaint: Chest Pain Stated complaint: Chest Pain Time Seen by Provider: 04/29/17 16:27 Source: patient, RN notes reviewed, old records reviewed Mode of arrival: wheelchair Limitations: no limitations - History of Present Illness Initial comments: History this is a 66-year-old male here for evaluation. This patient presents for evaluation of chest pain. Patient does have history of heart disease. Patient sent in by his doctor for evaluation. Patient states usually gets pain about once or twice a week will be by nitro. This pain happened to occur the doctor's office and they sent him to emergency room. Patient states pain is usually on the left side left sinus chest sharp pain. Today was on the right side. Patient denies significant source of breath as he is always short of breath with COPD. No sweating or diaphoresis. No nausea vomiting. No recent cough congestion or fevers. Patient denies any complaints or any pain at this time. States pain lasted for 5 minutes and resolved - Related Data Home Medications Medication Instructions Recorded Confirmed ARIPiprazole [Abilify] 5 mg PO HS 11/03/14 04/29/17 Citalopram Hydrobromide 40 mg PO DAILY 11/03/14 04/29/17 [Citalopram HBr] Saxagliptin HCl [Onglyza] 5 mg PO DAILY 11/03/14 04/29/17 Ascorbic Acid [Vitamin C] 500 mg PO DAILY 01/17/16 04/29/17 Cholecalciferol [Vitamin D3] 2,000 unit PO DAILY 01/17/16 04/29/17 Insulin Detemir [Levemir] 83 unit SQ BID 01/17/16 04/29/17 HYDROcodone/APAP 7.5-325MG [[place] 1 tab PO Q8H PRN 07/02/16 04/29/17 7.5-325] [place]-3 Fatty Acids/Fish Oil [Fish 1 cap PO DAILY 07/02/16 04/29/17 Oil 1,000 mg Softgel] Prazosin HCl 4 mg PO HS 07/02/16 04/29/17 traZODone HCL 150 mg PO HS 07/02/16 04/29/17 Aspirin EC [Ecotrin Low Dose] 81 mg PO DAILY 11/20/16 04/29/17 Bisoprolol Fumarate [Zebeta] 5 mg PO DAILY 11/20/16 04/29/17 Colchicine 0.6 mg PO DAILY 11/20/16 04/29/17 Insulin Aspart [NovoLOG] 10 unit SQ AC-BRKFST 11/20/16 04/29/17 Isosorbide Mononitrate ER [Imdur] 30 mg PO HS 11/20/16 04/29/17 Montelukast [Singulair] 10 mg PO HS 11/20/16 04/29/17 Albuterol Sulfate [Proventil Hfa] 2 puff INHALATION RT-Q4H PRN 02/19/17 04/29/17 Budesonide/Formoterol Fumarate 2 puff INHALATION RT-BID 02/19/17 04/29/17 [Symbicort 160-4.5 Mcg Inhaler] Metoprolol Tartrate [Lopressor] 25 mg PO BID 02/19/17 04/29/17 Insulin Aspart [NovoLOG] 12 unit SQ W/SUPPER 03/09/17 04/29/17 Ferrous Sulfate [Feosol] 325 mg PO BID 04/29/17 04/29/17 Hydrochlorothiazide [Hydrodiuril] 25 mg PO DAILY 04/29/17 04/29/17 Insulin Aspart [NovoLOG] 10 unit SQ AC-LUNCH 04/29/17 04/29/17 Lisinopril [Zestril] 10 mg PO BID 04/29/17 04/29/17 Previous Rx's Medication Instructions Recorded Atorvastatin [Lipitor] 80 mg PO HS #30 tab 12/16/16 Nitroglycerin Sl Tabs [Nitrostat] 0.4 mg SUBLINGUAL Q5M PRN #25 tab 12/16/16 Ticagrelor [Brilinta] 90 mg PO BID #60 tablet 12/16/16 metFORMIN HCL 1,000 mg PO BID #0 12/16/16 Allergies Allergy/AdvReac Type Severity Reaction Status Date / Time No Known Allergies Allergy Verified 04/29/17 16:49 Review of Systems ROS Statement: Those systems with pertinent positive or pertinent negative responses have been documented in the HPI. ROS Other: All systems not noted in ROS Statement are negative. Past Medical History Past Medical History: Atrial Fibrillation, Coronary Artery Disease (CAD), COPD, Diabetes Mellitus, Hyperlipidemia, Hypertension, Pneumonia, Sleep Apnea/CPAP/ BIPAP, Syncope Additional Past Medical History / Comment(s): sleep apnea with CPAP, KIDNEY STONES, GOUT, CATARACTS_HAD LASIK SX, BIPOLAR DEPRESSION History of Any Multi-Drug Resistant Organisms: None Reported Past Surgical History: Heart Catheterization With Stent, Hernia Repair, Orthopedic Surgery, Tonsillectomy Additional Past Surgical History / Comment(s): eye lid cyst removed,, pilonidal cyst, lasik, bilateral knee sx,LITHOTRIPSY, COLONOSCOPY,05-15-16 at [facility] had heart cath w/1 stent then again 05-21-16 had 2 more stents. Pt has a total of 5 stents Past Anesthesia/Blood Transfusion Reactions: No Reported Reaction Date of Last Stent Placement:: 05-21-16 Past Psychological History: Bipolar, Depression Smoking Status: Former smoker Past Alcohol Use History: None Reported Past Drug Use History: None Reported - Past Family History Mother Family Medical History: Coronary Artery Disease (CAD) Father Family Medical History: Coronary Artery Disease (CAD) Additional Family Medical History / Comment(s): emphysema General Exam Limitations: no limitations General appearance: alert, in no apparent distress Head exam: Present: atraumatic, normocephalic, normal inspection Eye exam: Present: normal appearance, PERRL, EOMI. Absent: scleral icterus, conjunctival injection, periorbital swelling ENT exam: Present: normal exam, mucous membranes moist Neck exam: Present: normal inspection. Absent: tenderness, meningismus, lymphadenopathy Respiratory exam: Present: normal lung sounds bilaterally. Absent: respiratory distress, wheezes, rales, rhonchi, stridor Cardiovascular Exam: Present: regular rate, normal rhythm, normal heart sounds. Absent: systolic murmur, diastolic murmur, rubs, gallop, clicks GI/Abdominal exam: Present: soft, normal bowel sounds. Absent: distended, tenderness, guarding, rebound, rigid Extremities exam: Present: normal inspection, full ROM, normal capillary refill. Absent: tenderness, pedal edema, joint swelling, calf tenderness Back exam: Present: normal inspection Neurological exam: Present: alert, oriented X3, CN II-XII intact Psychiatric exam: Present: normal affect, normal mood Skin exam: Present: warm, dry, intact, normal color. Absent: rash Course Vital Signs 04/29/17 04/29/17 04/29/17 16:12 17:38 18:48 Temperature 97.5 F L Pulse Rate 75 67 82 Respiratory 18 17 17 Rate Blood Pressure 178/77 170/77 150/65 O2 Sat by Pulse 94 L 94 L Oximetry - Reevaluation(s) Reevaluation #1: 04/29/17 19:12 Medical history including Reports are reviewed, patient still having episodic chest pain EKG Findings - EKG Comments: EKG Findings:: EKG shows normal sinus with a rate of 68, UT 154, QRS 92, QTc 442. Repeat. EKG shows no sinus rhythm rate of 66, UT 170, QRS 92, QTc 450 Medical Decision Making - Medical Decision Making 66 now tear with history of chest pain, stabbing left-sided chest pain normally , today with right-sided chest pain history of CAD history of stents, patient will be admitted for cardiac observation. - Lab Data Result diagrams: 04/29/17 16:44 04/29/17 16:44 Lab Results 04/29/17 04/29/17 04/29/17 Range/Units 16:44 16:44 16:44 WBC 6.3 (3.8-10.6) k/uL RBC 3.81 L (4.30-5.90) m/uL Hgb 11.3 L (13.0-17.5) gm/dL Hct 32.6 L (39.0-53.0) % MCV 85.5 (80.0-100.0) fL MCH 29.6 (25.0-35.0) pg MCHC 34.7 (31.0-37.0) g/dL RDW 14.1 (11.5-15.5) % Plt Count 238 (150-450) k/uL Neutrophils % (Manual) 64.0 % Lymphocytes % (Manual) 22.0 % Monocytes % (Manual) 12.0 % Eosinophils % (Manual) 2.0 % Neutrophils # (Manual) 4.0 (1.3-7.7) k/uL Lymphocytes # (Manual) 1.4 (1.0-4.8) k/uL Monocytes # (Manual) 0.8 (0-1.0) k/uL Eosinophils # (Manual) 0.1 (0-0.7) k/uL Nucleated RBCs 0 (0-0) /100 WBC Manual Slide Review Performed RBC Morphology Normal PT (9.0-12.0) sec INR (<1.1) APTT (22.0-30.0) sec Sodium 141 (137-145) mmol/L Potassium 4.0 (3.5-5.1) mmol/L Chloride 106 (98-107) mmol/L Carbon Dioxide 22 (22-30) mmol/L Anion Gap 13 mmol/L BUN 29 H (9-20) mg/dL Creatinine 0.93 (0.66-1.25) mg/dL Est GFR (MDRD) Af Amer >60 (>60 ml/min/1.73 sqM) Est GFR (MDRD) Non-Af >60 (>60 ml/min/1.73 sqM) Glucose 209 H (74-99) mg/dL Calcium 9.0 (8.4-10.2) mg/dL Magnesium 1.3 L (1.6-2.3) mg/dL Total Bilirubin 0.4 (0.2-1.3) mg/dL AST 36 (17-59) U/L ALT 60 (21-72) U/L Alkaline Phosphatase 123 (38-126) U/L Total Creatine Kinase 510 H (55-170) U/L CK-MB (CK-2) 4.7 H* (0.0-2.4) ng/mL CK-MB (CK-2) Rel Index 0.9 Troponin I <0.012 (0.000-0.034) ng/mL Total Protein 6.7 (6.3-8.2) g/dL Albumin 4.2 (3.5-5.0) g/dL Lipase 185 (23-300) U/L 04/29/17 Range/Units 16:44 WBC (3.8-10.6) k/uL RBC (4.30-5.90) m/uL Hgb (13.0-17.5) gm/dL Hct (39.0-53.0) % MCV (80.0-100.0) fL MCH (25.0-35.0) pg MCHC (31.0-37.0) g/dL RDW (11.5-15.5) % Plt Count (150-450) k/uL Neutrophils % (Manual) % Lymphocytes % (Manual) % Monocytes % (Manual) % Eosinophils % (Manual) % Neutrophils # (Manual) (1.3-7.7) k/uL Lymphocytes # (Manual) (1.0-4.8) k/uL Monocytes # (Manual) (0-1.0) k/uL Eosinophils # (Manual) (0-0.7) k/uL Nucleated RBCs (0-0) /100 WBC Manual Slide Review RBC Morphology PT 10.3 (9.0-12.0) sec INR 1.0 (<1.1) APTT 24.1 (22.0-30.0) sec Sodium (137-145) mmol/L Potassium (3.5-5.1) mmol/L Chloride (98-107) mmol/L Carbon Dioxide (22-30) mmol/L Anion Gap mmol/L BUN (9-20) mg/dL Creatinine (0.66-1.25) mg/dL Est GFR (MDRD) Af Amer (>60 ml/min/1.73 sqM) Est GFR (MDRD) Non-Af (>60 ml/min/1.73 sqM) Glucose (74-99) mg/dL Calcium (8.4-10.2) mg/dL Magnesium (1.6-2.3) mg/dL Total Bilirubin (0.2-1.3) mg/dL AST (17-59) U/L ALT (21-72) U/L Alkaline Phosphatase (38-126) U/L Total Creatine Kinase (55-170) U/L CK-MB (CK-2) (0.0-2.4) ng/mL CK-MB (CK-2) Rel Index Troponin I (0.000-0.034) ng/mL Total Protein (6.3-8.2) g/dL Albumin (3.5-5.0) g/dL Lipase (23-300) U/L Critical Care Time Critical Care Time: Yes Total Critical Care Time: 31 Disposition Clinical Impression: Chest pain Disposition: ADMITTED IP TO THIS [facility] Condition: Undetermined Referrals: Andrea Fierro DO [Primary Care Provider] - 1-2 days
[2017-04-29 16:54] LABS: Aty Lym Flag Slight; CH 29.5; CHCM 34.7; HCT 32.6 % (39.0-53.0); HDW 2.96; HGB 11.3 gm/dL (13.0-17.5); MCH 29.6 pg (25.0-35.0); MCHC 34.7 g/dL (31.0-37.0); MCV 85.5 fL (80.0-100.0); Mean Platelet Volume 7.4; RBC 3.81 m/uL (4.30-5.90); RDW 14.1 % (11.5-15.5); WBC 6.3 k/uL (3.8-10.6); WBC (Perox) 6.53
[2017-04-29 17:04] LABS: Partial Thromboplastin Time 24.1 sec (22.0-30.0); Prothrombin Time 10.3 sec (9.0-12.0)
[2017-04-29 17:05] LABS: ALT 60 U/L (21-72); AST 36 U/L (17-59); Alkaline Phosphatase 123 U/L (38-126); Anion Gap 13 mmol/L; Blood Urea Nitrogen 29 mg/dL (9-20); Carbon Dioxide 22 mmol/L (22-30); Chloride 106 mmol/L (98-107); Glucose 209 mg/dL (74-99); Magnesium 1.3 mg/dL (1.6-2.3); Non-African American GFR(MDRD) >60 (>60 ml/min/1.73 sqM); Sodium 141 mmol/L (137-145); Total Bilirubin 0.4 mg/dL (0.2-1.3); Total Protein 6.7 g/dL (6.3-8.2)
[2017-04-29 17:13] LABS: Creatine Kinase 510 U/L (55-170)
--- NOTE | 2017-04-29 17:23 | XR ---
EXAMINATION TYPE: XR chest 2V DATE OF EXAM: 04/29/2017 COMPARISON: 03/08/2017 HISTORY: Chest pain TECHNIQUE: Frontal and lateral views of the chest are obtained. FINDINGS: There is no heart failure nor confluent pneumonic infiltrate. Costophrenic angles are reji r. There is spurring in the thoracic spine. There are chest leads. Heart size is fairly normal. IMPRESSION: No active cardiopulmonary disease. There is clearing of subsegmental atelectasis at left lung base compared to old exam.
[2017-04-29 17:25] LABS: Add Differential Manual Differential
[2017-04-29 17:26] LABS: Troponin I <0.012 ng/mL (0.000-0.034)
[2017-04-29 17:29] LABS: Manual Review Performed; Nucleated Red Blood Cells 0 /100 WBC (0-0); RBC Morphology Normal; Total Cells Counted 100
[2017-04-29 17:34] LABS: Creatine Kinase MB 4.7 ng/mL (0.0-2.4)
[2017-04-29] MEDS ORDERED: NITROGLYCERIN SL TABS 0.4 MG TAB SUBLINGUAL PRN (19:10)
[2017-04-29] MEDS ORDERED: ASPIRIN 81 MG CHEW PO STA (19:10)
[2017-04-29] MEDS ORDERED: HEPARIN SODIUM,PORCINE 5,000 UNIT/ML 1 ML VIAL IV PRN (19:10)
[2017-04-29] MEDS ORDERED: HEPARIN SODIUM,PORCINE 5,000 UNIT/ML 1 ML VIAL IV ONE (19:10)
[2017-04-29] MEDS ORDERED: SODIUM CHLORIDE 0.9% 1,000 ML IV SCH (19:15)
[2017-04-29] MEDS ORDERED: HEPARIN SODIUM,PORCINE/D5W PMX 25,000 UNIT in DEXTROSE/WATER 1 500ML.BAG IV SCH (19:15)
[2017-04-29 21:12] VITALS: BMI 33.4
[2017-04-29] MEDS ORDERED: HYDROcodone/APAP 7.5-325MG 1 EACH TAB PO PRN (21:52)
[2017-04-29] MEDS ORDERED: ALBUTEROL NEBULIZED 2.5 MG/3 ML INHALATION PRN (21:52)
[2017-04-29] MEDS ORDERED: traZODone HCL 50 MG TAB PO SCH (22:00)
[2017-04-29] MEDS ORDERED: ISOSORBIDE MONONITRATE ER 30 MG TAB.ER.24H PO SCH (22:00)
[2017-04-29] MEDS ORDERED: ARIPiprazole 5 MG TAB PO SCH (22:00)
[2017-04-29] MEDS ORDERED: MONTELUKAST 10 MG TAB PO SCH (22:00)
[2017-04-29] MEDS ORDERED: ATORVASTATIN 80 MG TAB PO SCH (22:00)
[2017-04-29] MEDS ORDERED: PRAZOSIN 1 MG CAP PO SCH (22:00)
[2017-04-29] MEDS ORDERED: metFORMIN 500 MG TAB PO STA (22:08)
[2017-04-29] MEDS ORDERED: INSULIN DETEMIR 100 UNIT/ML 10 ML VIAL SQ ONE (22:15)
[2017-04-29] MEDS: TICAGRELOR 90 MG TAB PO SCH (22:39)
[2017-04-29] MEDS: FERROUS SULFATE 325 MG TAB PO SCH (22:40)
[2017-04-29] MEDS: METOPROLOL TARTRATE 25 MG TAB PO SCH (22:40)
[2017-04-29] MEDS: LISINOPRIL 10 MG TAB PO SCH (22:40)
[2017-04-29 22:41] LABS: Creatine Kinase 502 U/L (55-170)
[2017-04-29 22:53] LABS: Troponin I <0.012 ng/mL (0.000-0.034)
[2017-04-29 23:01] LABS: Creatine Kinase MB 4.4 ng/mL (0.0-2.4)
[2017-04-30 05:24] LABS: Mean Platelet Volume 6.4
[2017-04-30 05:55] LABS: Cholesterol 105 mg/dL (<200); HDL Cholesterol 25 mg/dL (40-60); Triglycerides 448 mg/dL (<150)
[2017-04-30 06:03] LABS: Creatine Kinase 473 U/L (55-170)
[2017-04-30 06:16] LABS: Troponin I <0.012 ng/mL (0.000-0.034)
[2017-04-30 06:38] LABS: Creatine Kinase MB 4.1 ng/mL (0.0-2.4)
[2017-04-30 06:54] LABS: Glucose,Whole Blood 212 mg/dL (75-99)
[2017-04-30] MEDS ORDERED: SYMBICORT 160-4.5 MCG INHALER INHALATION SCH (08:00)
[2017-04-30 08:38] LABS: Hemoglobin A1C 8.6 % (4.2-6.1)
[2017-04-30] MEDS ORDERED: ASPIRIN 81 MG CHEW PO SCH (09:00)
[2017-04-30] MEDS ORDERED: ASPIRIN 325 MG TAB PO SCH (09:00)
--- NOTE | 2017-04-30 10:46 | P.CRDCN ---
History of Present Illness Consult date: 04/30/17 Requesting physician: José Miguel Sauceda Consult reason: chest pain Chief complaint: Chest pain History of present illness: This is a 66-year-old gentleman who follows with Dr. Forrest in the office, he also follows at the [facility]. He has a known history of coronary artery disease with prior stent placements, most recently patient underwent stenting of the RCA and PLV branch of the RCA in December 19992016, he also has history of diabetes, hypertension, hyperlipidemia, sleep apnea, and bipolar depression. He presents to the hospital with symptoms of chest pain. He states that he was being seen by his physician at the [facility], he was complaining of some sharp intermittent chest pains which last only seconds at a time, they have been coming off and on. Because of these symptoms he was referred to come to the emergency room for further evaluation. Patient states these symptoms are not at all similar to what he had with his prior stent. Pain does worsen with deep breathing. EKG performed on arrival here shows a normal sinus rhythm with no acute changes. Repeat EKG shows normal sinus rhythm with no acute changes. Chest x-ray does not reveal any active cardiopulmonary disease.B/P von Blood pressure 124/60 with a heart rate in the 70s, 97% on 2 L of oxygen. White blood cell count normal, hemoglobin 11.3, potassium 4.0, BUN 29, creatinine 0.9. Magnesium level I.3. Troponins have been negative 3. CK 510, 502, and 473. Cholesterol 105, triglycerides 448, HDL 25. At the time of my examination this morning, patient is chest pain-free. Past Medical History Past Medical History: Atrial Fibrillation, Coronary Artery Disease (CAD), COPD, Diabetes Mellitus, Hyperlipidemia, Hypertension, Pneumonia, Sleep Apnea/CPAP/ BIPAP, Syncope Additional Past Medical History / Comment(s): sleep apnea with CPAP, KIDNEY STONES, GOUT, CATARACTS_HAD LASIK SX, BIPOLAR DEPRESSION History of Any Multi-Drug Resistant Organisms: None Reported Past Surgical History: Heart Catheterization With Stent, Hernia Repair, Orthopedic Surgery, Tonsillectomy Additional Past Surgical History / Comment(s): eye lid cyst removed,, pilonidal cyst, lasik, bilateral knee sx,LITHOTRIPSY, COLONOSCOPY,05-15-16 at [facility] had heart cath w/1 stent then again 7-20-16 had 2 more stents. Pt has a total of 5 stents Past Anesthesia/Blood Transfusion Reactions: No Reported Reaction Date of Last Stent Placement:: 05-21-16 Past Psychological History: Bipolar, Depression Additional Psychological History / Comment(s): at time of this admit asked pt if he currently is depressed or have any thoughts of harming self-he stated no" asked if he currently feels maintained on meds stated "yes". pt admitted to 5 past suicide attempts. pt lives at home with his common law ekaterina. pt served in the [employer] for 8 years. 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 Smoking Status: Former smoker Past Alcohol Use History: None Reported Past Drug Use History: None Reported - Past Family History Mother Family Medical History: Coronary Artery Disease (CAD) Father Family Medical History: Coronary Artery Disease (CAD) Additional Family Medical History / Comment(s): emphysema Medications and Allergies Home Medications Medication Instructions Recorded Confirmed Type ARIPiprazole [Abilify] 5 mg PO HS 11/03/14 04/29/17 History Citalopram Hydrobromide 40 mg PO DAILY 11/03/14 04/29/17 History [Citalopram HBr] Saxagliptin HCl [Onglyza] 5 mg PO DAILY 11/03/14 04/29/17 History Ascorbic Acid [Vitamin C] 500 mg PO DAILY 01/17/16 04/29/17 History Cholecalciferol [Vitamin D3] 2,000 unit PO DAILY 01/17/16 04/29/17 History Insulin Detemir [Levemir] 83 unit SQ BID 01/17/16 04/29/17 History HYDROcodone/APAP 7.5-325MG [[place] 1 tab PO Q8H PRN 07/02/16 04/29/17 History 7.5-325] [place]-3 Fatty Acids/Fish Oil [Fish 1 cap PO DAILY 07/02/16 04/29/17 History Oil 1,000 mg Softgel] Prazosin HCl 4 mg PO HS 07/02/16 04/29/17 History traZODone HCL 150 mg PO HS 07/02/16 04/29/17 History Aspirin EC [Ecotrin Low Dose] 81 mg PO DAILY 11/20/16 04/29/17 History Bisoprolol Fumarate [Zebeta] 5 mg PO DAILY 11/20/16 04/29/17 History Colchicine 0.6 mg PO DAILY 11/20/16 04/29/17 History Insulin Aspart [NovoLOG] 10 unit SQ AC-BRKFST 11/20/16 04/29/17 History Isosorbide Mononitrate ER [Imdur] 30 mg PO HS 11/20/16 04/29/17 History Montelukast [Singulair] 10 mg PO HS 11/20/16 04/29/17 History Albuterol Sulfate [Proventil Hfa] 2 puff INHALATION RT-Q4H PRN 02/19/17 History Budesonide/Formoterol Fumarate 2 puff INHALATION RT-BID 02/19/17 04/29/17 History [Symbicort 160-4.5 Mcg Inhaler] Metoprolol Tartrate [Lopressor] 25 mg PO BID 02/19/17 04/29/17 History Insulin Aspart [NovoLOG] 12 unit SQ W/SUPPER 03/09/17 04/29/17 History Ferrous Sulfate [Feosol] 325 mg PO BID 04/29/17 04/29/17 History Hydrochlorothiazide [Hydrodiuril] 25 mg PO DAILY 04/29/17 04/29/17 History Insulin Aspart [NovoLOG] 10 unit SQ AC-LUNCH 04/29/17 04/29/17 History Lisinopril [Zestril] 10 mg PO BID 04/29/17 04/29/17 History Allergies Allergy/AdvReac Type Severity Reaction Status Date / Time No Known Allergies Allergy Verified 04/29/17 16:49 Physical Exam Vitals: Vital Signs Temp Pulse Pulse Resp BP BP Pulse Ox 04/30/17 08:00 97.5 F L 73 16 124/61 97 04/30/17 07:29 72 98 04/30/17 07:19 70 04/30/17 04:00 59 L 18 117/61 94 L 04/30/17 00:00 64 18 04/29/17 23:53 97.7 F 71 18 154/73 98 04/29/17 20:30 60 18 04/29/17 20:10 97.6 F 87 16 176/78 92 L 04/29/17 19:44 97.5 F L 74 20 164/71 95 04/29/17 18:48 82 17 150/65 94 L 04/29/17 17:38 67 17 170/77 04/29/17 16:12 97.5 F L 75 18 178/77 94 L Intake and Output 04/29/17 04/30/17 04/30/17 22:59 06:59 14:59 Intake Total 165.260 Balance 165.260 Intake: Intake, IV Titration 165.260 Amount Heparin Sodium,Porcine/ 165.260 D5w Pmx 25,000 unit In Dextrose/Water 1 500ml. bag @ 9.5 UNITS/KG/HR 20. 08 mls/hr IV .Q24H [facility] Rx #:[id number] Other: Voiding Method Toilet Weight 105.7 kg PHYSICAL EXAMINATION: HEENT: Head is atraumatic, normocephalic. Pupils equal, round. Neck is supple. There is no elevated jugular venous pressure. HEART EXAMINATION: Heart S1, S2 normal. No murmur or gallop heard. CHEST EXAMINATION: Lungs are clear to auscultation and precussion. No chest wall tenderness is noted on palpation or with deep breathing. ABDOMEN: Soft, obese, nontender. Bowel sounds are heard. No organomegaly noted. EXTREMITIES: 1+ peripheral pulses with no evidence of peripheral edema and no calf tenderness noted. NEUROLOGIC patient is awake, alert and oriented -3. . Results 04/30/17 04:50 04/29/17 16:44 Cardiac Enzymes 04/29/17 04/29/17 04/29/17 Range/Units 16:44 16:44 21:40 AST 36 (17-59) U/L CK-MB (CK-2) 4.7 H* 4.4 H* (0.0-2.4) ng/mL Troponin I <0.012 <0.012 (0.000-0.034) ng/mL 04/30/17 Range/Units 04:50 AST (17-59) U/L CK-MB (CK-2) 4.1 H* (0.0-2.4) ng/mL Troponin I <0.012 (0.000-0.034) ng/mL Coagulation 04/29/17 04/30/17 04/30/17 Range/Units 16:44 01:52 09:28 PT 10.3 (9.0-12.0) sec APTT 24.1 28.5 27.0 (22.0-30.0) sec Lipids 04/30/17 Range/Units 04:53 Triglycerides 448 H (<150) mg/dL Cholesterol 105 (<200) mg/dL HDL Cholesterol 25 L (40-60) mg/dL CBC 04/29/17 04/30/17 Range/Units 16:44 04:50 WBC 6.3 (3.8-10.6) k/uL RBC 3.81 L (4.30-5.90) m/uL Hgb 11.3 L (13.0-17.5) gm/dL Hct 32.6 L (39.0-53.0) % Plt Count 238 242 (150-450) k/uL Comprehensive Metabolic Panel 04/29/17 Range/Units 16:44 Sodium 141 (137-145) mmol/L Potassium 4.0 (3.5-5.1) mmol/L Chloride 106 (98-107) mmol/L Carbon Dioxide 22 (22-30) mmol/L BUN 29 H (9-20) mg/dL Creatinine 0.93 (0.66-1.25) mg/dL Glucose 209 H (74-99) mg/dL Calcium 9.0 (8.4-10.2) mg/dL AST 36 (17-59) U/L ALT 60 (21-72) U/L Alkaline Phosphatase 123 (38-126) U/L Total Protein 6.7 (6.3-8.2) g/dL Albumin 4.2 (3.5-5.0) g/dL Current Medications Generic Name Dose Route Start Last Admin Trade Name Freq PRN Reason Stop Dose Admin Hydrocodone Bitart/Acetaminophen 1 each 04/29/17 21:52 [place]well 7.5-325 PO Q8H PRN Moderate Pain Albuterol Sulfate 2.5 mg 04/29/17 21:52 04/30/17 07:18 Ventolin Nebulized INHALATION 2.5 mg RT-Q4H PRN Administration Shortness Of Breath Aripiprazole 5 mg 04/29/17 22:00 04/29/17 22:40 Abilify PO 5 mg HS SALLY Administration Aspirin 81 mg 04/30/17 09:00 Aspirin PO DAILY SALLY Atorvastatin Calcium 80 mg 04/29/17 22:00 04/29/17 22:40 Lipitor PO 80 mg HS SALLY Administration Budesonide/Formoterol Fumarate 2 puff 04/30/17 08:00 04/30/17 07:16 Symbicort 160-4.5 Mcg Inhaler INHALATION 2 puff RT-BID SALLY Administration Ferrous Sulfate 325 mg 04/29/17 22:00 04/29/17 22:40 Feosol PO 325 mg 1200,1800 SALLY Administration Heparin Sodium (Porcine) 0 unit 04/29/17 19:10 Heparin IV Q6HR PRN Low PTT Protocol Heparin Sodium/Dextrose 25,000 500 mls @ 20.08 mls/hr 04/29/17 19:15 03:56 unit/ IV Solution IV 12.44 units/kg/hr .Q24H SALLY 26.3 mls/hr Protocol Titration 9.5 UNITS/KG/HR Sodium Chloride 1,000 mls @ 20 mls/hr 04/29/17 19:15 04/29/17 19:38 Saline 0.9% IV 20 mls/hr .Q24H SALLY Administration Insulin Human Lispro 0 unit 04/30/17 07:30 Humalog SQ ACHS [facility] Protocol Isosorbide Mononitrate 30 mg 04/29/17 22:00 04/29/17 22:40 Imdur PO 30 mg HS SALLY Administration Lisinopril 10 mg 04/29/17 22:00 04/29/17 22:40 Zestril PO 10 mg BID SALLY Administration Metoprolol Tartrate 25 mg 04/29/17 22:00 04/29/17 22:40 Lopressor PO 25 mg BID SALLY Administration Montelukast Sodium 10 mg 04/29/17 22:00 04/29/17 22:40 Singulair PO 10 mg HS SALLY Administration Nitroglycerin 0.4 mg 04/29/17 19:10 Nitrostat SUBLINGUAL Q5M PRN Chest Pain Prazosin HCl 4 mg 04/29/17 22:00 04/29/17 22:39 Minipress PO 4 mg HS SALLY Administration Ticagrelor 90 mg 04/29/17 22:00 04/29/17 22:39 Brilinta PO 90 mg BID SALLY Administration Trazodone HCl 150 mg 04/29/17 22:00 04/29/17 22:39 Desyrel PO 150 mg HS SALLY Administration Intake and Output 04/29/17 04/30/17 04/30/17 22:59 06:59 14:59 Intake Total 165.260 Balance 165.260 Intake: Intake, IV Titration 165.260 Amount Heparin Sodium,Porcine/ 165.260 D5w Pmx 25,000 unit In Dextrose/Water 1 500ml. bag @ 9.5 UNITS/KG/HR 20. 08 mls/hr IV .Q24H [facility] Rx #:[id number] Other: Voiding Method Toilet Weight 105.7 kg 04/30/17 04:50 04/29/17 16:44 EKG Interpretations (text) EKG shows normal sinus rhythm with no acute changes. Assessment and Plan Plan: Assessment and plan #1 chest pain atypical for acute coronary syndrome. Troponins 2 negative. EKG shows normal sinus rhythm with no acute changes. #2 known history of coronary artery disease with prior multivessel angioplasty, most recent stent was performed in December of this year at which patient underwent stenting of the distal RCA and PLV branch of the RCA #3 diabetes #4 hypertension #5 hyperlipidemia #6 sleep apnea #7 bipolar #6 COPD Plan We will obtain an echocardiogram with Doppler study.Initiate fenofibrate. D/C Minipress. Patient recently underwent a Lexiscan stress test last month which was negative for any reversible ischemia. From cardiology's perspective, patient may be able to be discharged home today to follow-up with Dr. Forrest in the office. DNP note has been reviewed, I agree with a documented findings and plan of care. Patient was seen and examined.
[2017-04-30] MEDS ORDERED: FENOFIBRATE 160 MG TAB PO SCH (11:00)
[2017-04-30] MEDS ORDERED: DOBUTamine DRIP for NUC MED 500 MG in DEXTROSE/WATER 1 250ML.BAG IV ONE (11:15)
[2017-04-30] MEDS: INSULIN LISPRO (humaLOG) 300 UNIT/3 ML VIAL SQ SCH ×2 (11:32→12:00)
[2017-04-30] MEDS: LISINOPRIL 10 MG TAB PO SCH (11:54)
[2017-04-30] MEDS: FERROUS SULFATE 325 MG TAB PO SCH (11:54)
[2017-04-30] MEDS: TICAGRELOR 90 MG TAB PO SCH (11:54)
[2017-04-30] MEDS: METOPROLOL TARTRATE 25 MG TAB PO SCH (11:55)
[2017-04-30 11:58] LABS: Glucose,Whole Blood 306 mg/dL (75-99)
[2017-04-30 12:21] VITALS: BP 132/64; PULSE 68; RESP 19; TEMP 97.3
--- NOTE | 2017-04-30 12:49 | ECHOF ---
Referral Reason:chest pain MEASUREMENTS -------- HEIGHT: 152.4 cm WEIGHT: 105.7 kg BP: 140/60 RVIDd: 3.2 cm (< 3.3) IVSd: 1.1 cm (0.6 - 1.1) LVIDd: 5.0 cm (3.9 - 5.3) LVPWd: 1.5 cm (0.6 - 1.1) IVSs: 1.5 cm LVIDs: 2.9 cm LVPWs: 1.9 cm LA Diam: 4.0 cm (2.7 - 3.8) LAESV Index (A-L): 30.48 ml/m Ao Diam: 4.0 cm (2.0 - 3.7) LA Diam: 4.3 cm (2.7 - 3.8) MV EXCURSION: 15.119 mm (> 18.000) MV EF SLOPE: 84 mm/s (70 - 150) EPSS: 0.7 cm MV E Jovan: 0.46 m/s MV DecT: 266 ms MV A Jovan: 0.61 m/s MV E/A Ratio: 0.75 RAP: 5.00 mmHg RVSP: 32.88 mmHg FINDINGS -------- Sinus rhythm. This was a technically adequate study. There is mild concentric left ventricular hypertrophy. Overall left ventricular systolic function is normal with, an EF between 55 - 60 %. The right ventricle is normal in size. LA is midly dilated 29-33ml/m2. The right atrial size is normal. There is mild aortic valve sclerosis. There is no evidence of aortic regurgitation. Mild mitral annular calcification present. Mild mitral regurgitation is present. Mild tricuspid regurgitation present. There is no evidence of pulmonary hypertension. The right ventricular systolic pressure, as measured by Doppler, is 32.88mmHg. Trace/mild (physiologic) pulmonic regurgitation. The aortic root size is normal. Echo free space may represent effusion or a pericardial fat pad. CONCLUSIONS -------- 1. There is mild concentric left ventricular hypertrophy. 2. Trace/mild (physiologic) pulmonic regurgitation. 3. The aortic root size is normal. 4. Echo free space may represent effusion or a pericardial fat pad. 5. Overall left ventricular systolic function is normal with, an EF between 55 - 60 %. 6. LA is midly dilated 29-33ml/m2. 7. There is mild aortic valve sclerosis. 8. Mild mitral annular calcification present. 9. Mild mitral regurgitation is present. 10. Mild tricuspid regurgitation present. 11. There is no evidence of pulmonary hypertension. 12. The right ventricular systolic pressure, as measured by Doppler, is 32.88mmHg. BEE RANCHER: Iraida Lopez RDCS
--- NOTE | 2017-05-03 09:10 | HP ---
This dictation is both H&P and discharge summary. The patient is a 66-year-old who came in with complaints of chest pain. Patient has reproducible chest pain. Patient had recent stress chest, which is negative. Patient does have history stent to RCA and PLV branch of RCA in December 2016. Although patient had recent stress test that was negative and patient's chest pain is reproducible and not associated with food, nonpleuritic in nature, on and off, lasts for a few seconds. When it comes it rates 10/10 and nonradiating. EKG was negative. Patient was evaluated by Cardiology. They cleared him for discharge as it is noncardiac pain and patient's risk for pulmonary embolism is also low. Patient has musculoskeletal chest pain and was asked to use NSAIDs on as needed basis and follow up with primary care physician. REVIEW OF SYSTEMS: CONSTITUTIONAL: No fever, no malaise, no fatigue. HEENT: No recent visual problems or hearing problems. Denied any sore throat. PULMONARY: No shortness of breath, no cough, no hemoptysis. GASTROINTESTINAL: No diarrhea, no nausea, no vomiting, no abdominal pain. Normoactive bowel sounds. NEUROLOGICAL: No headaches, no weakness, no numbness. HEMATOLOGICAL: Denies any bleeding or petechiae. GENITOURINARY: Denies any burning micturition, frequency, or urgency. MUSCULOSKELETAL/RHEUMATOLOGICAL: Denies any joint pain, swelling, or any muscle pain. ENDOCRINE: Denies any polyuria or polydipsia. The rest of the 14-point review of systems is negative. PAST MEDICAL HISTORY: Atrial fibrillation, coronary artery disease, COPD, diabetes mellitus, hyperlipidemia, hypertension, sleep apnea. Patient had gout , Sage cath in the past, bipolar depression. SOCIAL HISTORY: Former smoker. Denied any alcohol abuse or any drug abuse. FAMILY HISTORY: Mother had coronary artery disease, father had coronary artery disease. HOME MEDICATIONS: Omeprazole, scopolamine, Paxil, ascorbic acid, cholecalciferol , Levemir 83 units subcutaneous b.i.d., hydrocodone, acetaminophen, fatty acids , Zosyn, trazodone, aspirin, ( ), colchicine, ( ) and isosorbide mononitrate, a.c. lunch 10 units of aspart. ALLERGIES: No known allergies. PHYSICAL EXAMINATION: Temperature 97.5 pulse 73, respiratory rate of 16, blood pressure 112/61, saturating at 97% on room air. ( PHYSICAL EXAMINATION: GENERAL: The patient is alert and oriented x3, not in any acute distress. Well developed, well nourished. HEENT: Pupils are round and equally reacting to light. EOMI. No scleral icterus. No conjunctival pallor. Normocephalic, atraumatic. No pharyngeal erythema. No thyromegaly. CARDIOVASCULAR: S1 and S2 present. No murmurs, rubs, or gallops. PULMONARY: Chest is clear to auscultation, no wheezing or crackles. ABDOMEN: Soft, nontender, nondistended, normoactive bowel sounds. No palpable organomegaly. MUSCULOSKELETAL: No joint swelling or deformity. EXTREMITIES: No cyanosis, clubbing, or pedal edema. NEUROLOGICAL: Gross neurological examination did not reveal any focal deficits. SKIN: No rashes. ) CHEST: Good air entry into bilateral lung mauro. Patient has chest pain reproducible on the right side of the chest. No wheezing was appreciated. LABORATORY DATA: CBC and CMP no significant abnormality was appreciated. Chest x -ray essentially negative. Troponins are negative. EKG was reviewed, which showed sinus rhythm. Patient does have elevated blood sugars. ASSESSMENT AND PLAN: 1. Chest pain, atypical in nature, musculoskeletal in nature. Patient will be discharged today. Rule out acute coronary syndrome and unstable angina. Patient was evaluated by Cardiology. 2. History of coronary artery disease. Patient will continue with his home medications. 3. Diabetes mellitus. Uncontrolled blood sugars. ( ) titrate the insulin. Hemoglobin A1c is 8.1. 4. Hypertension. 5. Hyperlipidemia. 6. Sleep apnea. 7. Bipolar disorder. 8. Chronic obstructive pulmonary disease without any acute exacerbation. For above mentioned chronic medical problems the patient will continue on his home medication. His Minipress was discontinued and patient will follow up with ( ). This dictation is both H&P and discharge summary. The patient will follow with Dr. Shantel Forrest in four weeks and Dr. Andrea Fierro in 3 to 7 days. Activity as tolerated. Cardiac and diabetic 1800 calorie diet. MTDD
== END 2017-04-30 15:47 | disposition home or self-care (01) ==
LOC: EC 16:09 → 3OBS 19:10
PROVIDERS: ADMIT Hospitalist; ATTEND Hospitalist
DX: R07.89 Other chest pain (principal); I25.10 Atherosclerotic heart disease of native coronary artery without angina pectoris; J44.9 Chronic obstructive pulmonary disease, unspecified; Z79.899 Other long term (current) drug therapy; Z79.4 Long term (current) use of insulin; Z79.82 Long term (current) use of aspirin; Z79.51 Long term (current) use of inhaled steroids; I48.91 Unspecified atrial fibrillation; E11.9 Type 2 diabetes mellitus without complications; E78.5 Hyperlipidemia, unspecified; I10 Essential (primary) hypertension; G47.30 Sleep apnea, unspecified; Z99.89 Dependence on other enabling machines and devices; Z95.5 Presence of coronary angioplasty implant and graft; Z87.01 Personal history of pneumonia (recurrent); M10.9 Gout, unspecified; F31.9 Bipolar disorder, unspecified; Z87.891 Personal history of nicotine dependence
CPT/HCPCS: 96365 ×2; 96366 ×2; 96376; 99291; 36415; 94640; 93005; 93306; 80061; 80053; 83036; 82550 ×2; 82553 ×2; 83690; 83735; 84484 ×2; 85025; 85049; 85610; 85730 ×2; 71020; G0378 ×2; J1250; J1644 ×2

== ENCOUNTER 2017-04-30 20:37 | Emergency (ER) | payer OTHER, MEDICARE ==
[2017-04-30] MEDS ORDERED: CEPHALEXIN 500MG STARTER PACK 4 CAP BTL PO STA (21:46)
--- NOTE | 2017-04-30 21:52 | ED ---
Extremity Problem HPI - General Chief complaint: Extremity Problem,Nontraumatic Stated complaint: Arm Swelling after IV Time Seen by Provider: 04/30/17 21:39 Source: patient Mode of arrival: ambulatory Limitations: no limitations - History of Present Illness Initial comments: Patient is a 66-year-old male presenting to the emergency department with complaints of left upper extremity swelling and tenderness around previous IV catheter insertion site in his left antecubital. Patient states he was discharged from the hospital today for chest pain. Patient currently rates pain 7 out of 10, described as sharp, increased with movement, relieved with rest. Patient denies chills, fevers, nausea, vomiting, shortness of breath, chest pain, or abdominal pain. Patient denies numbness or tingling. Patient states he took Motrin prior to arrival. Patient denies antibiotic use in the last 30 days. - Related Data Home Medications Medication Instructions Recorded Confirmed ARIPiprazole [Abilify] 5 mg PO HS 11/03/14 04/30/17 Citalopram Hydrobromide 40 mg PO DAILY 11/03/14 04/30/17 [Citalopram HBr] Saxagliptin HCl [Onglyza] 5 mg PO DAILY 11/03/14 04/30/17 Ascorbic Acid [Vitamin C] 500 mg PO DAILY 01/17/16 04/30/17 Cholecalciferol [Vitamin D3] 2,000 unit PO DAILY 01/17/16 04/30/17 Insulin Detemir [Levemir] 83 unit SQ BID 01/17/16 04/30/17 HYDROcodone/APAP 7.5-325MG [[place] 1 tab PO Q8H PRN 07/02/16 04/30/17 7.5-325] [place]-3 Fatty Acids/Fish Oil [Fish 1 cap PO DAILY 07/02/16 04/30/17 Oil 1,000 mg Softgel] Prazosin HCl 4 mg PO HS 07/02/16 04/30/17 traZODone HCL 150 mg PO HS 07/02/16 04/30/17 Aspirin EC [Ecotrin Low Dose] 81 mg PO DAILY 11/20/16 04/30/17 Bisoprolol Fumarate [Zebeta] 5 mg PO DAILY 11/20/16 04/30/17 Colchicine 0.6 mg PO DAILY 11/20/16 04/30/17 Insulin Aspart [NovoLOG] 10 unit SQ AC-BRKFST 11/20/16 04/30/17 Isosorbide Mononitrate ER [Imdur] 30 mg PO HS 11/20/16 04/30/17 Montelukast [Singulair] 10 mg PO HS 11/20/16 04/30/17 Albuterol Sulfate [Proventil Hfa] 2 puff INHALATION RT-Q4H PRN 02/19/17 04/30/17 Budesonide/Formoterol Fumarate 2 puff INHALATION RT-BID 02/19/17 04/30/17 [Symbicort 160-4.5 Mcg Inhaler] Metoprolol Tartrate [Lopressor] 25 mg PO BID 02/19/17 04/30/17 Insulin Aspart [NovoLOG] 12 unit SQ W/SUPPER 03/09/17 04/30/17 Ferrous Sulfate [Feosol] 325 mg PO BID 04/29/17 04/30/17 Hydrochlorothiazide [Hydrodiuril] 25 mg PO DAILY 04/29/17 04/30/17 Insulin Aspart [NovoLOG] 10 unit SQ AC-LUNCH 04/29/17 04/30/17 Lisinopril [Zestril] 10 mg PO BID 04/29/17 04/30/17 Ibuprofen [Motrin] 800 mg PO DAILY PRN 04/30/17 04/30/17 Previous Rx's Medication Instructions Recorded Atorvastatin [Lipitor] 80 mg PO HS #30 tab 12/16/16 Nitroglycerin Sl Tabs [Nitrostat] 0.4 mg SUBLINGUAL Q5M PRN #25 tab 12/16/16 Ticagrelor [Brilinta] 90 mg PO BID #60 tablet 12/16/16 metFORMIN HCL 1,000 mg PO BID #0 12/16/16 Cephalexin [Keflex] 500 mg PO Q6HR #28 cap 04/30/17 Allergies Allergy/AdvReac Type Severity Reaction Status Date / Time No Known Allergies Allergy Verified 04/30/17 21:28 Review of Systems ROS Statement: Those systems with pertinent positive or pertinent negative responses have been documented in the HPI. ROS Other: All systems not noted in ROS Statement are negative. Past Medical History Past Medical History: Atrial Fibrillation, Coronary Artery Disease (CAD), COPD, Diabetes Mellitus, Hyperlipidemia, Hypertension, Pneumonia, Sleep Apnea/CPAP/ BIPAP, Syncope Additional Past Medical History / Comment(s): sleep apnea with CPAP, KIDNEY STONES, GOUT, CATARACTS_HAD LASIK SX, BIPOLAR DEPRESSION History of Any Multi-Drug Resistant Organisms: None Reported Past Surgical History: Heart Catheterization With Stent, Hernia Repair, Orthopedic Surgery, Tonsillectomy Additional Past Surgical History / Comment(s): eye lid cyst removed,, pilonidal cyst, lasik, bilateral knee sx,LITHOTRIPSY, COLONOSCOPY,05-15-16 at [facility] had heart cath w/1 stent then again 05-21-16 had 2 more stents. Pt has a total of 5 stents Past Anesthesia/Blood Transfusion Reactions: No Reported Reaction Date of Last Stent Placement:: 05-21-16 Past Psychological History: Bipolar, Depression Smoking Status: Former smoker Past Alcohol Use History: None Reported Past Drug Use History: None Reported - Past Family History Mother Family Medical History: Coronary Artery Disease (CAD) Father Family Medical History: Coronary Artery Disease (CAD) Additional Family Medical History / Comment(s): emphysema General Exam - General Exam Comments Initial Comments: GENERAL: Pt awake and alert, well-appearing, well-nourished, and in no acute distress. HEAD: Atraumatic, normocephalic. EYES: Pupils equal, round, sclera anicteric, conjunctiva are normal. ENT: Moist mucous membranes. LUNGS: Breath sounds clear to auscultation bilaterally. No wheezes, rales, or rhonchi. HEART: Heart S1, S2, no S3 or S4. Regular rate and rhythm. No murmurs, rubs or gallops. MUSCULOSKELETAL: Normal ROM. Strength 5/5. EXTREMITIES: Palpable peripheral pulses. Tenderness and erythema to left antecubital site. No evidence of abscess. NEUROLOGICAL: Pt oriented x 3. No focal deficits noted. Strength and sensation grossly intact. PSYCH: Normal mood, normal affect. SKIN: Warm, dry. Limitations: no limitations Course Vital Signs 04/30/17 04/30/17 20:42 22:23 Temperature 98 F 97.8 F Pulse Rate 85 82 Respiratory 20 16 Rate Blood Pressure 176/80 185/83 O2 Sat by Pulse 96 96 Oximetry Medical Decision Making - Medical Decision Making Cellulitis to left antecubital site suspect secondary to previous IV catheter insertion. Patient instructed to continue Motrin, apply warm compresses, elevate extremity, and finish oral antibiotics. Patient started to follow-up with primary care physician in next 24-48 hours for wound check. Patient instructed to return to the emergency department with any new or worsening symptoms. Discharge instructions and return parameters reviewed. Disposition Clinical Impression: Cellulitis Disposition: HOME SELF-CARE Condition: Good Instructions: Cellulitis (ED) Additional Instructions: Continue antibiotics as prescribed. Continue Tylenol or Motrin for pain. Apply warm compresses to the site. Follow-up with primary care physician for wound check in 48 hours. Please return to the emergency department with any new or worsening symptoms. Prescriptions: Cephalexin [Keflex] 500 mg PO Q6HR #28 cap Referrals: Andrea Fierro DO [Primary Care Provider] - 1-2 days Time of Disposition: 21:52
[2017-04-30 22:24] VITALS: BP 185/83; PULSE 82; RESP 16; TEMP 97.8
== END 2017-04-30 22:24 | disposition home or self-care (01) ==
LOC: EC 20:37
DX: L03.114 Cellulitis of left upper limb (principal); J44.9 Chronic obstructive pulmonary disease, unspecified; I25.10 Atherosclerotic heart disease of native coronary artery without angina pectoris; E11.9 Type 2 diabetes mellitus without complications; I10 Essential (primary) hypertension; F31.9 Bipolar disorder, unspecified; M10.9 Gout, unspecified; Z87.891 Personal history of nicotine dependence; Z79.4 Long term (current) use of insulin; Z79.84 Long term (current) use of oral hypoglycemic drugs; Z79.51 Long term (current) use of inhaled steroids; Z79.899 Other long term (current) drug therapy
CPT/HCPCS: 99283

== ENCOUNTER → 2017-06-18 | Outpatient (CLI) | payer OTHER, MEDICARE ==
[2017-06-18 13:11] LABS: AST 35 U/L (17-59); Alkaline Phosphatase 89 U/L (38-126); Anion Gap 10 mmol/L; Blood Urea Nitrogen 20 mg/dL (9-20); Calcium 9.1 mg/dL (8.4-10.2); Carbon Dioxide 28 mmol/L (22-30); Chloride 101 mmol/L (98-107); Cholesterol 104 mg/dL (<200); Glucose 183 mg/dL (74-99); HDL Cholesterol 30 mg/dL (40-60); Non-African American GFR(MDRD) >60 (>60 ml/min/1.73 sqM); Potassium 4.3 mmol/L (3.5-5.1); Sodium 139 mmol/L (137-145); Total Bilirubin 0.3 mg/dL (0.2-1.3); Total Protein 6.6 g/dL (6.3-8.2)
[2017-06-18 13:15] LABS: ALT 58 U/L (21-72)
== END | disposition home or self-care (01) ==
LOC: LABWHC1 12:24
PROVIDERS: ATTEND Internal Medicine Interventional Cardiology
DX: E78.2 Mixed hyperlipidemia (principal)
CPT/HCPCS: 36415; 80053; 80061

== ENCOUNTER 2017-06-25 06:23 | Day surgery (SDC) | payer MEDICARE, OTHER ==
[2017-06-23 16:23] VITALS: BMI 33.4
[~2017-06-25 06:23] MED LIST: ALPRAZolam 0.25 MG TAB PO PRN; ALPRAZolam 0.5 MG TAB PO PRN; ASPIRIN 325 MG TAB PO STA; ATORVASTATIN 80 MG TAB PO STA; NITROGLYCERIN SL TABS 0.4 MG TAB SUBLINGUAL PRN; SODIUM CHLORIDE 0.9% 1,000 ML in EMPTY BAG 1 BAG IV ONE
[2017-06-25] MEDS ORDERED: LIDOCAINE 2% INJ 20 MG/ML (20 ML MDV) ONE (07:15)
[2017-06-25] MEDS ORDERED: VERAPAMIL 2.5 MG/ML 2 ML AMP ONE (07:15)
[2017-06-25 07:18] LABS: Glucose,Whole Blood 138 mg/dL (75-99)
[2017-06-25 07:18] LABS: Anisocytosis Slight; Aty Lym Flag Slight; Basophils # (A) 0.1 k/uL (0-0.2); Basophils % (A) 1 %; CH 29.9; CHCM 33.9; Eosinophils # (A) 0.3 k/uL (0-0.7); Eosinophils % (A) 5 %; HCT 32.6 % (39.0-53.0); HDW 3.14; HGB 10.5 gm/dL (13.0-17.5); Luc # (Auto) 0.31; Luc % (Auto) 5; Lymphocytes # (A) 1.4 k/uL (1.0-4.8); Lymphocytes % (A) 21 %; MCH 28.5 pg (25.0-35.0); MCHC 32.1 g/dL (31.0-37.0); MCV 88.8 fL (80.0-100.0); Mean Platelet Volume 7.4; Monocytes # (A) 0.6 k/uL (0-1.0); Monocytes % (A) 10 %; Neutrophils # (A) 3.9 k/uL (1.3-7.7); Neutrophils % (A) 59 %; RBC 3.67 m/uL (4.30-5.90); WBC 6.7 k/uL (3.8-10.6); WBC (Perox) 6.61
[2017-06-25] MEDS ORDERED: fentaNYL (PF) 50 MCG/ML 2 ML AMP ONE (07:30)
[2017-06-25] MEDS ORDERED: diphenhydrAMINE 50 MG/ML 1 ML VIAL ONE (07:30)
[2017-06-25] MEDS ORDERED: fentaNYL (PF) 50 MCG/ML 2 ML AMP IVP ONE (07:32)
[2017-06-25] MEDS ORDERED: diphenhydrAMINE 50 MG/ML 1 ML VIAL IVP ONE (07:32)
[2017-06-25] MEDS ORDERED: LIDOCAINE 2% INJ 20 MG/ML SQ ONE (07:35)
[2017-06-25] MEDS ORDERED: VERAPAMIL SYRINGE (5 MG/10 ML) INTRAARTER ONE (07:37)
[2017-06-25] MEDS ORDERED: BIVALIRUDIN BOLUS 250 MG/50 ML IV ONE (07:47)
[2017-06-25] MEDS ORDERED: BIVALIRUDIN 250 MG in SODIUM CHLORIDE 0.9% 50 ML IV ONE (07:48)
[2017-06-25] MEDS ORDERED: NITROGLYCERIN 1000MCG/10ML SYRINGE INTRACORON ONE (07:51)
[2017-06-25] MEDS ORDERED: IOHEXOL 350 MG/ML 100 ML BOTTLE INJ ONE (08:20)
[2017-06-25] MEDS ORDERED: ZOLPIDEM 5 MG TAB PO PRN (08:39)
[2017-06-25] MEDS ORDERED: ATROPINE SULFATE 0.1 MG/ML 10ML SYRINGE IV PRN (08:39)
[2017-06-25] MEDS ORDERED: NITROGLYCERIN SL TABS 0.4 MG TAB SUBLINGUAL PRN ×2 (08:39→08:41)
[2017-06-25] MEDS ORDERED: RX INFO: IV CONTRAST WAS GIVEN 1 EACH MISC MISCELLANE PRN (08:39)
[2017-06-25] MEDS ORDERED: MAG HYDROX/AL HYDROX/SIMETH 30 ML CUP PO PRN (08:39)
[2017-06-25] MEDS ORDERED: HYDROcodone/APAP 7.5-325MG 1 EACH TAB PO PRN (08:41)
[2017-06-25] MEDS ORDERED: ALBUTEROL NEBULIZED 2.5 MG/3 ML INHALATION PRN (08:41)
[2017-06-25] MEDS ORDERED: SODIUM CHLORIDE 0.9% 1,000 ML IV SCH (08:45)
[2017-06-25] MEDS ORDERED: NON-FORMULARY DRUG (Omega-3 Fatty Acids/Fish Oil [Fish Oil 1,000 Mg Softgel] 1 CAP) PO SCH (09:00)
[2017-06-25] MEDS: INSULIN DETEMIR 100 UNIT/ML 10 ML VIAL SQ SCH ×2 (11:04→21:28)
[2017-06-25] MEDS: TICAGRELOR 90 MG TAB PO SCH ×2 (11:04→20:05)
[2017-06-25] MEDS: COLCHICINE 0.6 MG TAB PO SCH (11:05)
[2017-06-25] MEDS: LISINOPRIL 10 MG TAB PO SCH ×2 (11:05→20:03)
[2017-06-25] MEDS: FERROUS SULFATE 325 MG TAB PO SCH ×2 (11:05→20:02)
[2017-06-25] MEDS: ASPIRIN 81 MG CHEW PO SCH (11:05)
[2017-06-25] MEDS: LINAGLIPTIN 5 MG TABLET PO SCH (11:05)
[2017-06-25] MEDS: CITALOPRAM HYDROBROMIDE 20 MG TAB PO SCH (11:05)
[2017-06-25] MEDS: METOPROLOL TARTRATE 25 MG TAB PO SCH ×2 (11:05→20:04)
[2017-06-25] MEDS: ASCORBIC ACID 500 MG TAB PO SCH (11:06)
[2017-06-25] MEDS: CHOLECALCIFEROL 1,000 UNIT TAB PO SCH (11:06)
[2017-06-25 12:49] LABS: Glucose,Whole Blood 302 mg/dL (75-99)
[2017-06-25 17:03] LABS: Glucose,Whole Blood 228 mg/dL (75-99)
[2017-06-25] MEDS ORDERED: INSULIN LISPRO (humaLOG) 300 UNIT/3 ML VIAL SQ SCH (17:30)
[2017-06-25 20:01] VITALS: RESP 18
[2017-06-25] MEDS: SYMBICORT 160-4.5 MCG INHALER INHALATION SCH (20:09)
[2017-06-25] MEDS ORDERED: ARIPiprazole 5 MG TAB PO SCH (21:00)
[2017-06-25] MEDS ORDERED: MONTELUKAST 10 MG TAB PO SCH (21:00)
[2017-06-25] MEDS ORDERED: ATORVASTATIN 80 MG TAB PO SCH (21:00)
[2017-06-25] MEDS ORDERED: ISOSORBIDE MONONITRATE ER 30 MG TAB.ER.24H PO SCH (21:00)
[2017-06-25] MEDS ORDERED: traZODone HCL 50 MG TAB PO SCH (21:00)
[2017-06-25 21:22] LABS: Glucose,Whole Blood 172 mg/dL (75-99)
--- NOTE | 2017-06-25 23:48 | CC ---
Mr. Rudolph is a 66-year-old male with a history of hypertension, hyperlipidemia , diabetes mellitus, and a history of coronary artery disease with previous percutaneous revascularization. He recently has been complaining of chest discomfort. Discomfort was not typical of angina pectoris but reminded him of the symptoms he had prior to his angioplasty. In view of that, recommendation was made regarding cardiac catheterization. The procedure, its risks and complications were discussed with the patient, who was in full understanding and agreement. PROCEDURE: The patient was brought to the labor employment associate in a fasting, semi-sedated state after receiving fentanyl and Benadryl and achieving a moderate conscious sedated state. Using Xylocaine anesthesia and Seldinger technique, a 6 Pakistani sheath was introduced in the right radial artery. Selective right and left coronary angiography was performed using 5 Pakistani, 3-1/2 bend, right and left Nataliia catheters. Multiple views were taken of the coronary arteries, including hemiaxial views. Following that, a 5 Pakistani tight pigtail catheter was introduced in the left ventricle and 30-degree LIU view of the left ventricle was obtained. Following that, catheters were removed and images were reviewed. FINDINGS LEFT MAIN: This is a large-sized vessel, short in distance, trifurcating into left circumflex, left anterior descending artery and ramus intermedius. Left main coronary artery is without any evidence of significant obstructive coronary artery disease. LEFT ANTERIOR DESCENDING ARTERY: This is a large-sized vessel reaching toward the apex with a wrap around the apex segment. The left anterior descending artery has mild intimal disease in the proximal and mid segment, up to 30%, without any evidence of high-grade stenosis. RAMUS INTERMEDIUS: This is a large-sized vessel reaching toward the apicolateral wall. The ramus intermedius has a plaque of 20% to 30% proximally with any evidence of high-grade stenosis. LEFT CIRCUMFLEX: This is a non-dominant vessel giving rise to 2 obtuse marginal branches. The first one is large in caliber. The left ( ) artery has mild intimal disease in the proximal segment of 20% to 30%. RIGHT CORONARY ARTERY: This is a large dominant vessel bifurcating distally into PDA, posterolateral segment and branches. The stented segment and the proximal and mid right coronary artery are patent with mild restenosis up to 30% . The stented segment distally prior to the bifurcation is patent as well. The PLV stent is patent. Distal to the PLV stent there is a 90% to 95% stenosis. The rest of the vessel has no high-grade stenosis. LEFT VENTRICULOGRAM: Left ventriculogram was performed in 30-degree LIU view and revealed minimal inferior wall hypokinesis. The ejection fraction was estimated at 55%. HEMODYNAMICS: There was no gradient across the aortic valve. The left ventricular end-diastolic pressure was 28 mmHg. CONCLUSION: 1. Significant stenosis distal to the stented segment in the right PLV. 2. Patent stent in the proximal, mid and distal right coronary artery. 3. Mild disease in the left circumflex and the LAD. 4. Preserved left ventricular size and systolic function. RECOMMENDATION: In view of findings and anatomy, I recommend proceeding with angioplasty and stenting of the right PLV. The procedure, its risks and complications were discussed with the patient, who is in full understanding and agreement. SHANNEN
--- NOTE | 2017-06-26 05:45 | PTCA ---
ANGIOPLASTY PROCEDURE NOTE Mr. Rudolph is a 66-year-old male who presented with symptoms of chest discomfort , has a known history of coronary artery disease, underwent cardiac catheterization. He was found to have significant stenosis distal to the stented segment in the right PLV. In view of that, recommendation was made regarding angioplasty and stenting. The procedure as well as the risks and the complications were discussed with the patient who is in full understanding and agreement. PROCEDURE: Using a 6 Kiswahili FR4 guiding catheter and after cannulating the right coronary ostium 0.014 balanced medium weight J wire was advanced across the lesion, positioned distally. Attempt to advance a 2.25 x 12 mm Xience Alpine stent was unsuccessful, that stent was removed and another 0.014 balanced medium weight J wire was advanced next to the first wire in a marko fashion, but in spite of that the stent will not advance. At that time, the stent was removed and a 2.25 x 8 mm Trek balloon was advanced and one inflation at 10 atmospheres was done. Following that, the balloon was removed and the stent was reintroduced in the system, but could not cross the lesion. Subsequent to that, the stent was removed and a 2.25 x 8 mm Xience Alpine stent was advanced, positioned, deployed and inflation overlap segment 16 atmosphere was done. Following that, the balloon and the wire was withdrawn back in the guiding catheter. Images were obtained and repeated. Those images reveal stable , successful stenting. At that point, the guiding catheter, the balloon and the guidewire were removed. The sheath was removed. Hemostasis was obtained with deployment of TR band. There was no immediate complication. Patient was returned to his room in stable condition. Of note, the patient received Angiomax per protocol. He had no significant chest pain or EKG changes with the inflation. RESULT: Successful stenting of the right PLV with reduction in stenosis from 95 % to 0%. RECOMMENDATIONS: The patient will be continued on aspirin, Brilanta, beta higinio and statin. The importance of dual antiplatelet treatment was discussed with the patient and his family and are in full understanding and agreement. SHANNEN
--- NOTE | 2017-06-26 05:53 | MISC ---
June 25, 2017 Andrea Fierro, DO Re: Boone Robersonen Dear Dr. Fierro: I had the opportunity to perform coronary angiography and coronary angioplasty and stenting on Mr. Rudolph at [facility] on the 25 of June and a full copy of the procedure note will be forwarded to you. In brief, he was found to have significant lesion involving the right PLV and underwent successful stenting of that vessel using a drug eluting stent. I am hopeful that this procedure will stabilize his status. Thank you again for allowing me the opportunity to participate in his care. Please feel free to call for any questions. Sincerely your, Shantel PRIDE
[2017-06-26 06:43] LABS: Glucose,Whole Blood 262 mg/dL (75-99)
[2017-06-26 06:53] LABS: Anion Gap 11 mmol/L; Blood Urea Nitrogen 28 mg/dL (9-20); Calcium 9.7 mg/dL (8.4-10.2); Carbon Dioxide 23 mmol/L (22-30); Chloride 104 mmol/L (98-107); Glucose 252 mg/dL (74-99); Non-African American GFR(MDRD) 55 (>60 ml/min/1.73 sqM); Potassium 4.5 mmol/L (3.5-5.1); Sodium 138 mmol/L (137-145)
[2017-06-26] MEDS ORDERED: INSULIN LISPRO (humaLOG) 300 UNIT/3 ML VIAL SQ SCH ×2 (07:30→12:30)
[2017-06-26] MEDS: COLCHICINE 0.6 MG TAB PO SCH (07:57)
[2017-06-26] MEDS: CHOLECALCIFEROL 1,000 UNIT TAB PO SCH (07:57)
[2017-06-26] MEDS: LINAGLIPTIN 5 MG TABLET PO SCH (07:58)
[2017-06-26] MEDS: ASCORBIC ACID 500 MG TAB PO SCH (07:58)
[2017-06-26] MEDS: ASPIRIN 81 MG CHEW PO SCH (07:58)
[2017-06-26] MEDS: FERROUS SULFATE 325 MG TAB PO SCH (07:58)
[2017-06-26] MEDS: LISINOPRIL 10 MG TAB PO SCH (07:58)
[2017-06-26] MEDS: METOPROLOL TARTRATE 25 MG TAB PO SCH (07:58)
[2017-06-26] MEDS: CITALOPRAM HYDROBROMIDE 20 MG TAB PO SCH (07:59)
[2017-06-26] MEDS: TICAGRELOR 90 MG TAB PO SCH (07:59)
[2017-06-26 09:05] VITALS: BP 179/79; PULSE 89; TEMP 97.3
[2017-06-26] MEDS: INSULIN DETEMIR 100 UNIT/ML 10 ML VIAL SQ SCH (09:05)
[2017-06-26] MEDS: SYMBICORT 160-4.5 MCG INHALER INHALATION SCH (09:43)
--- NOTE | 2017-06-26 19:36 | PN ---
Mr. Rudolph is a 66 -year-old male with known history of coronary artery disease who presented with symptoms of chest discomfort, underwent cardiac catheterization and was found to have significant disease in the right PLV, distal to the previous stented segment. He underwent stenting of that vessel. He is doing well this morning. He is denying any chest pain. His breathing has been stable. He denies any dizziness or palpitations. He denies any nausea. He continues to be at this time on aspirin once a day, Brilinta 90 mg twice a day, Lipitor 80 mg daily, Citalopram 40 mg daily, Colchicine 0.6 mg daily, Iron , insulin, Isosorbide mononitrate 30 mg daily, Tradjenta 5 mg daily, Lisinopril 10 mg twice a day, Metoprolol tartrate 25 mg twice a day, Singulair 10 mg daily and Trazodone. PHYSICAL EXAMINATION: Blood pressure 134/60 with a heart rate in the 80s, lungs clear, heart regular rate and rhythm, S1, S2, no S3. No rub with systolic murmur. Abdomen soft, nontender, obese. Extremities Trace 1+ edema. Right radial pulse intact. EKG revealed no acute changes. Lab data revealed BUN and creatinine and 1.3. Potassium 4.5. IMPRESSION: 1. Status post stenting of the right PDA. 2. History of coronary artery disease. 3. Hypertension. 4. Hyperlipidemia. 5. Diabetes mellitus. RECOMMENDATIONS: The patient will be discharged home today and followed as an outpatient. His renal function will be followed. SHANNEN
== END 2017-06-26 10:12 | disposition home or self-care (01) ==
LOC: CATHCVL 06:23 → 6SEL 08:18 → CATHCVL 06-26 10:12
PROVIDERS: ATTEND Internal Medicine Interventional Cardiology
DX: T82.855A Stenosis of coronary artery stent, initial encounter (principal); I25.110 Atherosclerotic heart disease of native coronary artery with unstable angina pectoris; I10 Essential (primary) hypertension; E78.2 Mixed hyperlipidemia; E11.9 Type 2 diabetes mellitus without complications; G47.33 Obstructive sleep apnea (adult) (pediatric); E78.00 Pure hypercholesterolemia, unspecified; Z82.49 Family history of ischemic heart disease and other diseases of the circulatory system; F17.211 Nicotine dependence, cigarettes, in remission; Z79.82 Long term (current) use of aspirin; Z79.4 Long term (current) use of insulin; Z79.51 Long term (current) use of inhaled steroids; Z79.899 Other long term (current) drug therapy; Z79.84 Long term (current) use of oral hypoglycemic drugs
CPT/HCPCS: 94640 ×2; 93458; 80048; 85025; 99152; 99153 ×2; C9600; C1769 ×2; C1887; C1894; C1725; C1874; J2001; J1200; Q9967; J3010; J0583

== ENCOUNTER 2017-07-05 23:46 | Observation (INO) | payer OTHER, MEDICARE ==
[2017-07-06 00:16] LABS: Aty Lym Flag Slight; Basophils # (A) 0.1 k/uL (0-0.2); Basophils % (A) 1 %; CH 29.9; CHCM 34.9; Eosinophils # (A) 0.3 k/uL (0-0.7); Eosinophils % (A) 4 %; HCT 32.7 % (39.0-53.0); HDW 3.07; Luc # (Auto) 0.38; Luc % (Auto) 5; Lymphocytes # (A) 1.8 k/uL (1.0-4.8); Lymphocytes % (A) 23 %; MCH 29.1 pg (25.0-35.0); MCHC 33.7 g/dL (31.0-37.0); MCV 86.3 fL (80.0-100.0); Mean Platelet Volume 7.1; Monocytes # (A) 0.8 k/uL (0-1.0); Monocytes % (A) 10 %; Neutrophils # (A) 4.5 k/uL (1.3-7.7); Neutrophils % (A) 58 %; RBC 3.79 m/uL (4.30-5.90); RDW 15.2 % (11.5-15.5); WBC 7.8 k/uL (3.8-10.6); WBC (Perox) 7.56
[2017-07-06 00:20] LABS: ALT 72 U/L (21-72); AST 40 U/L (17-59); Alkaline Phosphatase 164 U/L (38-126); Anion Gap 13 mmol/L; Blood Urea Nitrogen 39 mg/dL (9-20); Calcium 9.5 mg/dL (8.4-10.2); Carbon Dioxide 18 mmol/L (22-30); Chloride 108 mmol/L (98-107); Glucose 127 mg/dL (74-99); Magnesium 1.3 mg/dL (1.6-2.3); Non-African American GFR(MDRD) 55 (>60 ml/min/1.73 sqM); Potassium 4.2 mmol/L (3.5-5.1); Sodium 139 mmol/L (137-145); Total Bilirubin 0.2 mg/dL (0.2-1.3); Total Protein 6.4 g/dL (6.3-8.2)
[2017-07-06 00:27] LABS: INR 1.1 (<1.2); Partial Thromboplastin Time 26.2 sec (22.0-30.0); Prothrombin Time 10.9 sec (9.0-12.0)
[2017-07-06 00:29] LABS: Creatine Kinase 736 U/L (55-170)
[2017-07-06 00:40] LABS: Manual Review Performed
[2017-07-06 00:43] LABS: Troponin I <0.012 ng/mL (0.000-0.034)
[2017-07-06 00:49] LABS: Creatine Kinase MB 6.1 ng/mL (0.0-2.4)
--- NOTE | 2017-07-06 00:57 | XR ---
EXAM: XR Chest, 2 Views CLINICAL HISTORY: Reason: Chest Pain TECHNIQUE: Frontal and lateral views of the chest. COMPARISON: 04/29/2017 and 03/08/2017 FINDINGS: Lungs: No significant interval change. Probable mild chronic interstitial lung changes. Pleural space: Unremarkable. No pneumothorax. Heart: Unremarkable. No cardiomegaly. Mediastinum: Unchanged. Bones/joints: Unchanged. IMPRESSION: No evidence of active cardiopulmonary disease without significant interval change.
[2017-07-06] MEDS ORDERED: SODIUM CHLORIDE 0.9% 500 ML IV ONE (01:07)
[2017-07-06] MEDS ORDERED: MAGNESIUM SULFATE-D5W PMX 1 GM in DEXTROSE/WATER 1 100ML.BAG IVPB ONE (01:08)
[2017-07-06] MEDS ORDERED: NALOXONE 0.4 MG/ML 1 ML VIAL IV PRN (01:15)
[2017-07-06] MEDS ORDERED: HYDROcodone/APAP 5-325MG 1 EACH TAB PO PRN (01:15)
[2017-07-06] MEDS ORDERED: ONDANSETRON 4 MG/2 ML VIAL IVP PRN (01:15)
--- NOTE | 2017-07-06 01:25 | ED ---
General Adult HPI - General Chief complaint: Chest Pain Stated complaint: Chest Pain Time Seen by Provider: 07/05/17 23:53 Source: patient, family, EMS, RN notes reviewed, old records reviewed Mode of arrival: EMS Limitations: no limitations - History of Present Illness Initial comments: 66 yo male with history of CAD, hypertension, and diabetes as well as recent heart catheterization with stent placement presents with left anterior chest pain. Patient had heart catheterization on June 25 with stenting of the PLV. Patient has been on aspirin and Balint. Denies missing any doses of these medications. He has been compliant with all of his medications over the past week. Patient was chest pain-free post cath. He was lying down for bed this evening and developed sharp anterior chest pain. This was nonradiating. Not associated with nausea or vomiting. There is no diaphoresis. He does admit to waxing his car earlier in the day. He he does use both his left and right hand. Patient's gave him nitroglycerin, aspirin, it 100 mg Motrin and [place] at home. Patient's pain was relieved with these medications. He has no pain at the time of my evaluation. - Related Data Home Medications Medication Instructions Recorded Confirmed ARIPiprazole [Abilify] 5 mg PO HS 11/03/14 06/25/17 Citalopram Hydrobromide 40 mg PO DAILY 11/03/14 06/25/17 [Citalopram HBr] Saxagliptin HCl [Onglyza] 5 mg PO DAILY 11/03/14 06/25/17 Ascorbic Acid [Vitamin C] 500 mg PO DAILY 01/17/16 06/25/17 Cholecalciferol [Vitamin D3] 2,000 unit PO DAILY 01/17/16 06/25/17 Insulin Detemir [Levemir] 83 unit SQ BID 01/17/16 06/25/17 HYDROcodone/APAP 7.5-325MG [[place] 1 tab PO Q8H PRN 07/02/16 06/25/17 7.5-325] [place]-3 Fatty Acids/Fish Oil [Fish 1 cap PO DAILY 07/02/16 06/25/17 Oil 1,000 mg Softgel] traZODone HCL 150 mg PO HS 07/02/16 06/25/17 Aspirin EC [Ecotrin Low Dose] 81 mg PO DAILY 11/20/16 06/25/17 Colchicine 0.6 mg PO DAILY 11/20/16 06/25/17 Insulin Aspart [NovoLOG] 10 - 12 unit SQ AC-TID 11/20/16 06/25/17 Isosorbide Mononitrate ER [Imdur] 30 mg PO HS 11/20/16 06/25/17 Montelukast [Singulair] 10 mg PO HS 11/20/16 06/25/17 Albuterol Sulfate [Proventil Hfa] 2 puff INHALATION RT-Q4H PRN 02/19/17 06/23/17 Budesonide/Formoterol Fumarate 2 puff INHALATION RT-BID 02/19/17 06/25/17 [Symbicort 160-4.5 Mcg Inhaler] Metoprolol Tartrate [Lopressor] 25 mg PO BID 02/19/17 06/25/17 Ferrous Sulfate [Feosol] 325 mg PO BID 04/29/17 06/25/17 Lisinopril [Zestril] 10 mg PO BID 04/29/17 06/25/17 Previous Rx's Medication Instructions Recorded Atorvastatin [Lipitor] 80 mg PO HS #30 tab 12/16/16 Nitroglycerin Sl Tabs [Nitrostat] 0.4 mg SUBLINGUAL Q5M PRN #25 tab 12/16/16 Ticagrelor [Brilinta] 90 mg PO BID #60 tablet 12/16/16 Allergies Allergy/AdvReac Type Severity Reaction Status Date / Time No Known Allergies Allergy Verified 07/05/17 23:52 Review of Systems ROS Statement: Those systems with pertinent positive or pertinent negative responses have been documented in the HPI. ROS Other: All systems not noted in ROS Statement are negative. Past Medical History Past Medical History: Atrial Fibrillation, Coronary Artery Disease (CAD), Chest Pain / Angina, COPD, Diabetes Mellitus, Hyperlipidemia, Hypertension, Pneumonia , Sleep Apnea/CPAP/BIPAP Additional Past Medical History / Comment(s): USES CPAP. HX KIDNEY STONES, GOUT , CATARACTS. LASIK SX, BIPOLAR DEPRESSION. CP, SHORTNESS OF BREATH CURRENT. History of Any Multi-Drug Resistant Organisms: None Reported Past Surgical History: Heart Catheterization With Stent, Hernia Repair, Orthopedic Surgery, Tonsillectomy Additional Past Surgical History / Comment(s): Pilonidal cyst. EXC ABDI CATARACTS. Bilateral Knee Sx. LITHOTRIPSY. COLONOSCOPY. 05-15-16 at [facility] had heart cath w/1 stent, 05-21-16 had 2 more stents - total of 5 stents. another stent placed 06/26/17 Past Anesthesia/Blood Transfusion Reactions: No Reported Reaction Date of Last Stent Placement:: 12/2016 Past Psychological History: Bipolar, Depression Smoking Status: Former smoker Past Alcohol Use History: Rare Past Drug Use History: None Reported - Past Family History Mother Family Medical History: Coronary Artery Disease (CAD) Father Family Medical History: Coronary Artery Disease (CAD) Additional Family Medical History / Comment(s): emphysema General Exam Limitations: no limitations General appearance: alert, in no apparent distress Head exam: Present: atraumatic, normocephalic Eye exam: Present: normal appearance, PERRL ENT exam: Present: normal exam, mucous membranes moist Neck exam: Present: normal inspection, full ROM Respiratory exam: Present: normal lung sounds bilaterally, chest wall tenderness (Patient has reproducible left anterior chest pain.). Absent: respiratory distress Cardiovascular Exam: Present: regular rate, normal rhythm GI/Abdominal exam: Present: soft. Absent: distended, tenderness Extremities exam: Present: normal inspection, full ROM, normal capillary refill. Absent: pedal edema Neurological exam: Present: alert, oriented X3 Psychiatric exam: Present: normal affect, normal mood Skin exam: Present: warm, dry, intact. Absent: cyanosis, diaphoretic Course Vital Signs 07/05/17 07/06/17 07/06/17 23:47 00:34 01:18 Temperature 96.9 F L 97.0 F L 97.5 F L Pulse Rate 84 73 76 Respiratory 18 18 18 Rate Blood Pressure 118/67 129/63 124/59 O2 Sat by Pulse 97 96 96 Oximetry - Reevaluation(s) Reevaluation #1: 07/06/17 01:23 On reevaluation, patient remains chest pain-free EKG Findings - EKG Comments: EKG Findings:: EKG shows normal sinus rhythm, ventricular rate 80,. 190, QRS duration 92, QTC 465, there is no ST segment elevation or depression, no T-wave abnormality. Medical Decision Making - Medical Decision Making 66 yo male presents with reproducible anterior chest pain. Chest pain is atypical for cardiac chest pain, however the patient is status post recent heart catheterization. He has been compliant with all of his medications. His EKG is nonischemic. Laboratory studies reveal stable hemoglobin, creatinine 1.3 which is at baseline, magnesium is 1.3 and is replaced. CK-MB is elevated at 6.1, however index 0.8, initial troponin is negative. Case is discussed with cardiology on-call Dr. Barrera, he does recommend the patient be placed in observation for serial troponins and reevaluation. Water Pumper placed on consult. Patient remains chest pain-free while in the emergency department. Diagnosis: Chest pain - Lab Data Result diagrams: 07/05/17 23:53 07/05/17 23:53 Lab Results 07/05/17 07/05/17 07/05/17 Range/Units 23:53 23:53 23:53 WBC 7.8 (3.8-10.6) k/uL RBC 3.79 L (4.30-5.90) m/uL Hgb 11.0 L (13.0-17.5) gm/dL Hct 32.7 L (39.0-53.0) % MCV 86.3 (80.0-100.0) fL MCH 29.1 (25.0-35.0) pg MCHC 33.7 (31.0-37.0) g/dL RDW 15.2 (11.5-15.5) % Plt Count 283 (150-450) k/uL Neutrophils % 58 % Lymphocytes % 23 % Monocytes % 10 % Eosinophils % 4 % Basophils % 1 % Neutrophils # 4.5 (1.3-7.7) k/uL Lymphocytes # 1.8 (1.0-4.8) k/uL Monocytes # 0.8 (0-1.0) k/uL Eosinophils # 0.3 (0-0.7) k/uL Basophils # 0.1 (0-0.2) k/uL Manual Slide Review Performed PT (9.0-12.0) sec INR (<1.2) APTT (22.0-30.0) sec Sodium 139 (137-145) mmol/L Potassium 4.2 (3.5-5.1) mmol/L Chloride 108 H (98-107) mmol/L Carbon Dioxide 18 L (22-30) mmol/L Anion Gap 13 mmol/L BUN 39 H (9-20) mg/dL Creatinine 1.30 H (0.66-1.25) mg/dL Est GFR (MDRD) Af Amer >60 (>60 ml/min/1.73 sqM) Est GFR (MDRD) Non-Af 55 (>60 ml/min/1.73 sqM) Glucose 127 H (74-99) mg/dL Calcium 9.5 (8.4-10.2) mg/dL Magnesium 1.3 L (1.6-2.3) mg/dL Total Bilirubin 0.2 (0.2-1.3) mg/dL AST 40 (17-59) U/L ALT 72 (21-72) U/L Alkaline Phosphatase 164 H (38-126) U/L Total Creatine Kinase 736 H (55-170) U/L CK-MB (CK-2) 6.1 H* (0.0-2.4) ng/mL CK-MB (CK-2) Rel Index 0.8 Troponin I <0.012 (0.000-0.034) ng/mL NT-Pro-B Natriuret Pep pg/mL Total Protein 6.4 (6.3-8.2) g/dL Albumin 4.0 (3.5-5.0) g/dL 07/05/17 07/05/17 Range/Units 23:53 23:53 WBC (3.8-10.6) k/uL RBC (4.30-5.90) m/uL Hgb (13.0-17.5) gm/dL Hct (39.0-53.0) % MCV (80.0-100.0) fL MCH (25.0-35.0) pg MCHC (31.0-37.0) g/dL RDW (11.5-15.5) % Plt Count (150-450) k/uL Neutrophils % % Lymphocytes % % Monocytes % % Eosinophils % % Basophils % % Neutrophils # (1.3-7.7) k/uL Lymphocytes # (1.0-4.8) k/uL Monocytes # (0-1.0) k/uL Eosinophils # (0-0.7) k/uL Basophils # (0-0.2) k/uL Manual Slide Review PT 10.9 (9.0-12.0) sec INR 1.1 (<1.2) APTT 26.2 (22.0-30.0) sec Sodium (137-145) mmol/L Potassium (3.5-5.1) mmol/L Chloride (98-107) mmol/L Carbon Dioxide (22-30) mmol/L Anion Gap mmol/L BUN (9-20) mg/dL Creatinine (0.66-1.25) mg/dL Est GFR (MDRD) Af Amer (>60 ml/min/1.73 sqM) Est GFR (MDRD) Non-Af (>60 ml/min/1.73 sqM) Glucose (74-99) mg/dL Calcium (8.4-10.2) mg/dL Magnesium (1.6-2.3) mg/dL Total Bilirubin (0.2-1.3) mg/dL AST (17-59) U/L ALT (21-72) U/L Alkaline Phosphatase (38-126) U/L Total Creatine Kinase (55-170) U/L CK-MB (CK-2) (0.0-2.4) ng/mL CK-MB (CK-2) Rel Index Troponin I (0.000-0.034) ng/mL NT-Pro-B Natriuret Pep 75 pg/mL Total Protein (6.3-8.2) g/dL Albumin (3.5-5.0) g/dL Disposition Clinical Impression: Atypical chest pain Disposition: ADMITTED IP TO THIS [facility] Condition: Stable Referrals: Andrea Fierro DO [Primary Care Provider] - 1-2 days Decision to Admit Reason: Admit from EC Decision Date: 07/06/17 Decision Time: 01:25
[2017-07-06 02:39] VITALS: BMI 33.4
[2017-07-06] MEDS: SODIUM CHLORIDE 0.9% 1,000 ML IV SCH ×2 (06:38→14:00)
[2017-07-06 06:45] LABS: Glucose,Whole Blood 182 mg/dL (75-99)
[2017-07-06 07:24] VITALS: RESP 18
[2017-07-06 07:41] LABS: Creatine Kinase 755 U/L (55-170)
[2017-07-06 07:56] LABS: Troponin I <0.012 ng/mL (0.000-0.034)
[2017-07-06 08:02] LABS: Creatine Kinase MB 6.1 ng/mL (0.0-2.4)
[2017-07-06] MEDS ORDERED: INSULIN DETEMIR 100 UNIT/ML 10 ML VIAL SQ SCH (09:00)
[2017-07-06] MEDS ORDERED: COLCHICINE 0.6 MG TAB PO SCH (09:00)
[2017-07-06] MEDS ORDERED: ASPIRIN 81 MG PO SCH (09:00)
[2017-07-06] MEDS ORDERED: METOPROLOL TARTRATE 25 MG TAB PO SCH (09:00)
[2017-07-06] MEDS ORDERED: LISINOPRIL 10 MG TAB PO SCH (09:00)
[2017-07-06] MEDS ORDERED: TICAGRELOR 90 MG TAB PO SCH (09:00)
--- NOTE | 2017-07-06 10:40 | P.HPIM ---
History of Present Illness H&P Date: 07/06/17 Chief Complaint: Chest pain 66-year-old gentleman has a known history of CAD underwent a PCI/PTCA to the right ostium branch about [address] Forrest comes in the hospital with complaints of chest pain after he was waxing his G. She noted diffuse pain across the chest worsened with deep breathing and movement of his arms patient came to the emergency room and EKG does not show any acute changes from previous EKGs Initial troponin was negative patient was however admitted to the hospital as high risk factors for close observation and to rule out ACS Patient also was noted to have a non-anion gap metabolic acidosis with slight worsening of his kidney function. Patient is also noted to have a creatinine kinase are 700 his baseline creatinine kinase has been around 300 At this time patient continues to have this diffuse pain which is also reproducible Denies having any headaches or vision nausea vomiting abdominal pain diarrhea urinary urgency or frequency Review of systems a 14 point review of systems was done nonpertinent was mentioned above Gen. appearance oriented 3 no acute distress Heart S1-S2 heard no murmurs appreciated regular in rhythm Lungs good air movement clear to auscultation no rhonchi wheezing or crackles Chest cavity reproducible pain diffusely Abdomen is obese nontender no organomegaly bowel sounds are intact Lower extremities no edema noted Neuro no focal motor or sensory deficits noted Assessment and plan #1 atypical chest pain likely muscular skeletal #2 non-anion gap metabolic S was #3 acute kidney injury #4 statin-induced myopathy question poppy #5 dyslipidemia #6 gout #7 essential hypertension #8 diabetes mellitus Plan We'll hydrate the patient will obtain a urinalysis to see if there is any evidence of rhabdomyolysis-induced acute kidney injury Patient's creatinine however has been stable from the day of his cardiac catheterization We'll need to discuss decreasing the dose of Lipitor we'll defer this to the customer operations specialist. Patient could likely be discharged home later todayc Past Medical History Past Medical History: Atrial Fibrillation, Coronary Artery Disease (CAD), Chest Pain / Angina, COPD, Diabetes Mellitus, Hyperlipidemia, Hypertension, Pneumonia , Sleep Apnea/CPAP/BIPAP Additional Past Medical History / Comment(s): USES CPAP. HX KIDNEY STONES, GOUT , CATARACTS. LASIK SX, BIPOLAR DEPRESSION. CP, SHORTNESS OF BREATH CURRENT. History of Any Multi-Drug Resistant Organisms: None Reported Past Surgical History: Heart Catheterization With Stent, Hernia Repair, Orthopedic Surgery, Tonsillectomy Additional Past Surgical History / Comment(s): Pilonidal cyst. EXC ABDI CATARACTS. Bilateral Knee Sx. LITHOTRIPSY. COLONOSCOPY. 05-15-16 at [facility] had heart cath w/1 stent, 05-21-16 had 2 more stents - total of 5 stents. another stent placed 06/26/17 Past Anesthesia/Blood Transfusion Reactions: No Reported Reaction Date of Last Stent Placement:: 06/25/2017 Past Psychological History: Bipolar, Depression Additional Psychological History / Comment(s): pt admitted to 5 past suicide attempts. pt lives at home with his common law ekaterina. Smoking Status: Former smoker Past Alcohol Use History: Rare Additional Past Alcohol Use History / Comment(s): started smoking at age 16(1965 ) stopped at age 65() smoked, 1ppd. Past Drug Use History: None Reported - Past Family History Mother Family Medical History: Coronary Artery Disease (CAD) Father Family Medical History: Coronary Artery Disease (CAD) Additional Family Medical History / Comment(s): emphysema Medications and Allergies Home Medications Medication Instructions Recorded Confirmed Type ARIPiprazole [Abilify] 5 mg PO HS 11/03/14 07/06/17 History Citalopram Hydrobromide 40 mg PO DAILY 11/03/14 07/06/17 History [Citalopram HBr] Saxagliptin HCl [Onglyza] 5 mg PO DAILY 11/03/14 07/06/17 History Ascorbic Acid [Vitamin C] 500 mg PO DAILY 01/17/16 07/06/17 History Cholecalciferol [Vitamin D3] 2,000 unit PO DAILY 01/17/16 07/06/17 History Insulin Detemir [Levemir] 83 unit SQ BID 01/17/16 07/06/17 History HYDROcodone/APAP 7.5-325MG [[place] 1 tab PO Q8H PRN 07/02/16 07/06/17 History 7.5-325] [place]-3 Fatty Acids/Fish Oil [Fish 1 cap PO DAILY 07/02/16 07/06/17 History Oil 1,000 mg Softgel] traZODone HCL 150 mg PO HS 07/02/16 07/06/17 History Aspirin EC [Ecotrin Low Dose] 81 mg PO DAILY 11/20/16 07/06/17 History Colchicine 0.6 mg PO DAILY 11/20/16 07/06/17 History Insulin Aspart [NovoLOG] 10 - 12 unit SQ AC-TID 11/20/16 07/06/17 History Isosorbide Mononitrate ER [Imdur] 30 mg PO HS 11/20/16 07/06/17 History Montelukast [Singulair] 10 mg PO HS 11/20/16 07/06/17 History Atorvastatin [Lipitor] 80 mg PO HS #30 tab 12/16/16 07/06/17 Rx Nitroglycerin Sl Tabs [Nitrostat] 0.4 mg SUBLINGUAL Q5M PRN #25 tab 12/16/1602/16 Rx Ticagrelor [Brilinta] 90 mg PO BID #60 tablet 12/16/16 07/06/17 Rx Albuterol Sulfate [Proventil Hfa] 2 puff INHALATION RT-Q4H PRN 02/19/17 History Budesonide/Formoterol Fumarate 2 puff INHALATION RT-BID 02/19/17 07/06/17 History [Symbicort 160-4.5 Mcg Inhaler] Metoprolol Tartrate [Lopressor] 25 mg PO BID 02/19/17 07/06/17 History Ferrous Sulfate [Feosol] 325 mg PO BID 04/29/17 07/06/17 History Lisinopril [Zestril] 10 mg PO BID 04/29/17 07/06/17 History Allergies Allergy/AdvReac Type Severity Reaction Status Date / Time No Known Allergies Allergy Verified 07/06/17 09:00 Physical Exam Vitals: Vital Signs Temp Pulse Pulse Resp BP BP Pulse Ox 07/06/17 08:00 75 18 07/06/17 07:23 97.5 F L 75 18 136/60 93 L 07/06/17 02:13 97.5 F L 71 20 139/69 97 07/06/17 01:18 97.5 F L 76 18 124/59 96 07/06/17 00:34 97.0 F L 73 18 129/63 96 07/05/17 23:47 96.9 F L 84 18 118/67 97 Intake and Output 07/05/17 07/06/17 07/06/17 22:59 06:59 14:59 Other: Voiding Method Toilet Toilet Weight 105.687 kg Results CBC & Chem 7: 07/05/17 23:53 07/05/17 23:53 Labs: Abnormal Lab Results - Last 24 Hours (Table) 07/05/17 07/05/17 07/05/17 Range/Units 23:53 23:53 23:53 RBC 3.79 L (4.30-5.90) m/uL Hgb 11.0 L (13.0-17.5) gm/dL Hct 32.7 L (39.0-53.0) % Chloride 108 H (98-107) mmol/L Carbon Dioxide 18 L (22-30) mmol/L BUN 39 H (9-20) mg/dL Creatinine 1.30 H (0.66-1.25) mg/dL Glucose 127 H (74-99) mg/dL POC Glucose (mg/dL) (75-99) mg/dL Magnesium 1.3 L (1.6-2.3) mg/dL Alkaline Phosphatase 164 H (38-126) U/L Total Creatine Kinase 736 H (55-170) U/L CK-MB (CK-2) 6.1 H* (0.0-2.4) ng/mL 07/06/17 07/06/17 Range/Units 06:43 06:55 RBC (4.30-5.90) m/uL Hgb (13.0-17.5) gm/dL Hct (39.0-53.0) % Chloride (98-107) mmol/L Carbon Dioxide (22-30) mmol/L BUN (9-20) mg/dL Creatinine (0.66-1.25) mg/dL Glucose (74-99) mg/dL POC Glucose (mg/dL) 182 H (75-99) mg/dL Magnesium (1.6-2.3) mg/dL Alkaline Phosphatase (38-126) U/L Total Creatine Kinase 755 H (55-170) U/L CK-MB (CK-2) 6.1 H* (0.0-2.4) ng/mL Thrombosis Risk Factor Assmnt - Choose All That Apply Each Factor Represents 1 point: Obesity (BMI >25) Each Risk Factor Represents 2 Points: Age 61-74 years Thrombosis Risk Factor Assessment Total Risk Factor Score: 3 Thrombosis Risk Factor Assessment Level: Moderate Risk
--- NOTE | 2017-07-06 11:41 | P.CRDCN ---
History of Present Illness Consult date: 07/06/17 Reason for Consult (text): chest pain Chief complaint: chest pain History of present illness: This is a pleasant 66-year-old gentleman with a history of CAD hypertension, diabetes and atrial fibrillation. He follows with Dr. Forrest in the office and recently underwent cardiac catheterization with stenting of the PLV on June 25. [facility] emergency department with complaints of sharp anterior chest discomfort. Apparently he was getting ready to go to sleep was lying in bed and developed sharp left-sided chest pain. Pain is reproducible with palpation at this time however at rest patient denies complaints of chest discomfort. On admission EKG showed normal sinus rhythm without acute ST-T wave abnormalities. Laboratory values show troponins negative 2 with elevated CK and CK-MB on Lipitor 80 mg daily., magnesium 1.3 which has been supplemented and BUN 39 creatinine 1.3. Past Medical History Past Medical History: Atrial Fibrillation, Coronary Artery Disease (CAD), Chest Pain / Angina, COPD, Diabetes Mellitus, Hyperlipidemia, Hypertension, Pneumonia , Sleep Apnea/CPAP/BIPAP Additional Past Medical History / Comment(s): USES CPAP. HX KIDNEY STONES, GOUT , CATARACTS. LASIK SX, BIPOLAR DEPRESSION. CP, SHORTNESS OF BREATH CURRENT. History of Any Multi-Drug Resistant Organisms: None Reported Past Surgical History: Heart Catheterization With Stent, Hernia Repair, Orthopedic Surgery, Tonsillectomy Additional Past Surgical History / Comment(s): Pilonidal cyst. EXC ABDI CATARACTS. Bilateral Knee Sx. LITHOTRIPSY. COLONOSCOPY. 05-15-16 at [facility] had heart cath w/1 stent, 05-21-16 had 2 more stents - total of 5 stents. another stent placed 06/26/17 Past Anesthesia/Blood Transfusion Reactions: No Reported Reaction Date of Last Stent Placement:: 06/25/2017 Past Psychological History: Bipolar, Depression Additional Psychological History / Comment(s): pt admitted to 5 past suicide attempts. pt lives at home with his common law ekaterina. Smoking Status: Former smoker Past Alcohol Use History: Rare Additional Past Alcohol Use History / Comment(s): started smoking at age 16(1965 ) stopped at age 65() smoked, 1ppd. Past Drug Use History: None Reported - Past Family History Mother Family Medical History: Coronary Artery Disease (CAD) Father Family Medical History: Coronary Artery Disease (CAD) Additional Family Medical History / Comment(s): emphysema Medications and Allergies Home Medications Medication Instructions Recorded Confirmed Type ARIPiprazole [Abilify] 5 mg PO HS 11/03/14 07/06/17 History Citalopram Hydrobromide 40 mg PO DAILY 11/03/14 07/06/17 History [Citalopram HBr] Saxagliptin HCl [Onglyza] 5 mg PO DAILY 11/03/14 07/06/17 History Ascorbic Acid [Vitamin C] 500 mg PO DAILY 01/17/16 07/06/17 History Cholecalciferol [Vitamin D3] 2,000 unit PO DAILY 01/17/16 07/06/17 History Insulin Detemir [Levemir] 83 unit SQ BID 01/17/16 07/06/17 History HYDROcodone/APAP 7.5-325MG [[place] 1 tab PO Q8H PRN 07/02/16 07/06/17 History 7.5-325] [place]-3 Fatty Acids/Fish Oil [Fish 1 cap PO DAILY 07/02/16 07/06/17 History Oil 1,000 mg Softgel] traZODone HCL 150 mg PO HS 07/02/16 07/06/17 History Aspirin EC [Ecotrin Low Dose] 81 mg PO DAILY 11/20/16 07/06/17 History Colchicine 0.6 mg PO DAILY 11/20/16 07/06/17 History Insulin Aspart [NovoLOG] 10 - 12 unit SQ AC-TID 11/20/16 07/06/17 History Isosorbide Mononitrate ER [Imdur] 30 mg PO HS 11/20/16 07/06/17 History Montelukast [Singulair] 10 mg PO HS 11/20/16 07/06/17 History Nitroglycerin Sl Tabs [Nitrostat] 0.4 mg SUBLINGUAL Q5M PRN #25 tab 12/16/1602/16 Rx Ticagrelor [Brilinta] 90 mg PO BID #60 tablet 12/16/16 07/06/17 Rx Albuterol Sulfate [Proventil Hfa] 2 puff INHALATION RT-Q4H PRN 02/19/17 History Budesonide/Formoterol Fumarate 2 puff INHALATION RT-BID 02/19/17 07/06/17 History [Symbicort 160-4.5 Mcg Inhaler] Metoprolol Tartrate [Lopressor] 25 mg PO BID 02/19/17 07/06/17 History Ferrous Sulfate [Feosol] 325 mg PO BID 04/29/17 07/06/17 History Lisinopril [Zestril] 10 mg PO BID 04/29/17 07/06/17 History Allergies Allergy/AdvReac Type Severity Reaction Status Date / Time No Known Allergies Allergy Verified 07/06/17 09:00 Physical Exam Vitals: Vital Signs Temp Pulse Pulse Resp BP BP Pulse Ox 07/06/17 08:00 75 18 07/06/17 07:23 97.5 F L 75 18 136/60 93 L 07/06/17 02:13 97.5 F L 71 20 139/69 97 07/06/17 01:18 97.5 F L 76 18 124/59 96 07/06/17 00:34 97.0 F L 73 18 129/63 96 07/05/17 23:47 96.9 F L 84 18 118/67 97 Intake and Output 07/05/17 07/06/17 07/06/17 22:59 06:59 14:59 Other: Voiding Method Toilet Toilet Weight 105.687 kg PHYSICAL EXAMINATION: HEENT: Head is atraumatic, normocephalic. Pupils equal, round. Neck is supple. There is no elevated jugular venous pressure. HEART EXAMINATION: Heart sounds regular, S1 and S2 normal. No murmur or gallop heard. CHEST EXAMINATION: Lungs are clear to auscultation and precussion. Left-sided chest wall tenderness is noted on palpation. ABDOMEN: Soft, nontender. Bowel sounds are heard. No organomegaly noted. EXTREMITIES: 2+ peripheral pulses with no evidence of peripheral edema and no calf tenderness noted. NEUROLOGIC patient is awake, alert and oriented x3. . Results 07/05/17 23:53 07/05/17 23:53 Cardiac Enzymes 07/05/17 07/05/17 07/06/17 Range/Units 23:53 23:53 06:55 AST 40 (17-59) U/L CK-MB (CK-2) 6.1 H* 6.1 H* (0.0-2.4) ng/mL Troponin I <0.012 <0.012 (0.000-0.034) ng/mL Coagulation 07/05/17 Range/Units 23:53 PT 10.9 (9.0-12.0) sec APTT 26.2 (22.0-30.0) sec CBC 07/05/17 Range/Units 23:53 WBC 7.8 (3.8-10.6) k/uL RBC 3.79 L (4.30-5.90) m/uL Hgb 11.0 L (13.0-17.5) gm/dL Hct 32.7 L (39.0-53.0) % Plt Count 283 (150-450) k/uL Comprehensive Metabolic Panel 07/05/17 Range/Units 23:53 Sodium 139 (137-145) mmol/L Potassium 4.2 (3.5-5.1) mmol/L Chloride 108 H (98-107) mmol/L Carbon Dioxide 18 L (22-30) mmol/L BUN 39 H (9-20) mg/dL Creatinine 1.30 H (0.66-1.25) mg/dL Glucose 127 H (74-99) mg/dL Calcium 9.5 (8.4-10.2) mg/dL AST 40 (17-59) U/L ALT 72 (21-72) U/L Alkaline Phosphatase 164 H (38-126) U/L Total Protein 6.4 (6.3-8.2) g/dL Albumin 4.0 (3.5-5.0) g/dL Current Medications Generic Name Dose Route Start Last Admin Trade Name Freq PRN Reason Stop Dose Admin Hydrocodone Bitart/Acetaminophen 1 each 07/06/17 01:15 [place] 5-325 PO Q4HR PRN Moderate Pain Aripiprazole 5 mg 07/06/17 21:00 Abilify PO HS SALLY Aspirin 81 mg 07/06/17 09:00 07/06/17 09:50 Aspirin PO 81 mg DAILY SALLY Administration Colchicine 0.6 mg 07/06/17 09:00 07/06/17 09:50 Colcrys PO 0.6 mg DAILY SALLY Administration Sodium Chloride 1,000 mls @ 75 mls/hr 07/06/17 01:15 07/06/17 06:38 Saline 0.9% IV Not Given .[id number] SALLY Insulin Detemir 83 unit 07/06/17 09:00 07/06/17 09:50 Levemir SQ 83 unit BID SALLY Administration Isosorbide Mononitrate 30 mg 07/06/17 21:00 Imdur PO HS [facility] Lisinopril 10 mg 07/06/17 09:00 07/06/17 09:57 Zestril PO Not Given BID SALLY Metoprolol Tartrate 25 mg 07/06/17 09:00 07/06/17 09:51 Lopressor PO 25 mg BID SALLY Administration Naloxone HCl 0.2 mg 07/06/17 01:15 Narcan IV Q2M PRN Opioid Reversal Ondansetron HCl 4 mg 07/06/17 01:15 Zofran IVP Q8HR PRN Nausea And Vomiting Ticagrelor 90 mg 07/06/17 09:00 07/06/17 09:51 Brilinta PO 90 mg BID SALLY Administration Intake and Output 07/05/17 07/06/17 07/06/17 22:59 06:59 14:59 Other: Voiding Method Toilet Toilet Weight 105.687 kg 07/05/17 23:53 07/05/17 23:53 EKG Interpretations (text) Normal sinus rhythm Assessment and Plan Plan: Assessment and plan #1 atypical chest pain, reproducible with palpation #2 coronary artery disease with recent stent placement #3 hypertension #4 diabetes #5 elevated CK of 755 and CK-MB of 6.1 with myalgias, on Lipitor 80 mg daily, urinalysis been ordered by primary #6 acute kidney injury #7 hypomagnesemia, supplemented From cardiology's perspective, we will hold Lipitor for now. We will recheck magnesium. Await results of urinalysis. Patient's chest discomfort appears to be musculoskeletal in nature. He is scheduled to follow-up with Dr. Forrest in the office this week. CLAIM TAKER note has been reviewed, I agree with a documented findings and plan of care. Patient was seen and examined.
[2017-07-06 11:54] VITALS: BP 144/73; PULSE 80; TEMP 97.6
[2017-07-06 12:04] LABS: Glucose,Whole Blood 235 mg/dL (75-99)
[2017-07-06 12:17] LABS: Appearance,Urine Clear (Clear); Bilirubin,Urine Negative (Negative); Glucose,Urine (UA) Negative (Negative); Ketones,Urine Negative (Negative); Leukocyte Esterase,Urine Negative (Negative); Nitrite,Urine Negative (Negative); Protein,Urine Negative (Negative); Specific Gravity,Urine 1.006 (1.001-1.035); UA Billing (MACRO vs. MICRO) CHEM; Urobilinogen,Urine <2.0 mg/dL (<2.0)
[2017-07-06 12:31] LABS: Creatine Kinase 667 U/L (55-170)
[2017-07-06 12:44] LABS: Troponin I <0.012 ng/mL (0.000-0.034)
[2017-07-06 12:47] LABS: Creatine Kinase MB 5.9 ng/mL (0.0-2.4)
[2017-07-06] MEDS ORDERED: MAGNESIUM OXIDE 400 MG TAB PO STA (13:45)
[2017-07-06] MEDS ORDERED: ISOSORBIDE MONONITRATE ER 30 MG TAB.ER.24H PO SCH (21:00)
[2017-07-06] MEDS ORDERED: ARIPiprazole 5 MG TAB PO SCH (21:00)
[2017-07-06] MEDS ORDERED: ATORVASTATIN 80 MG TAB PO SCH (21:00)
== END 2017-07-06 14:48 | disposition home or self-care (01) ==
LOC: EC 23:46 → SUPCPDRO 23:46 → 3OBS 07-06 01:18
PROVIDERS: ADMIT Internal Medicine; ATTEND Internal Medicine
DX: R07.89 Other chest pain (principal); I25.10 Atherosclerotic heart disease of native coronary artery without angina pectoris; I10 Essential (primary) hypertension; E11.9 Type 2 diabetes mellitus without complications; Z95.5 Presence of coronary angioplasty implant and graft; Z79.899 Other long term (current) drug therapy; Z79.4 Long term (current) use of insulin; Z79.82 Long term (current) use of aspirin; Z79.51 Long term (current) use of inhaled steroids; I48.91 Unspecified atrial fibrillation; J44.9 Chronic obstructive pulmonary disease, unspecified; E78.5 Hyperlipidemia, unspecified; G47.30 Sleep apnea, unspecified; Z99.89 Dependence on other enabling machines and devices; Z87.01 Personal history of pneumonia (recurrent); Z87.442 Personal history of urinary calculi; M10.9 Gout, unspecified; Z87.891 Personal history of nicotine dependence; F31.9 Bipolar disorder, unspecified; R74.8 Abnormal levels of other serum enzymes; E87.2 Acidosis; N17.9 Acute kidney failure, unspecified; E66.9 Obesity, unspecified; Z68.33 Body mass index [BMI] 33.0-33.9, adult; E83.42 Hypomagnesemia
CPT/HCPCS: 96365; 99285; 36415; 93005; 83880; 80053; 82550; 82553; 83735; 84484; 85025; 85610; 85730; 81003; 71020; G0378; J3475

== ENCOUNTER → 2017-07-22 | Outpatient (CLI) | payer MEDICARE | END | disposition home or self-care (01) | LOC: LABWHC1 13:50 | PROVIDERS: ATTEND Internal Medicine Interventional Cardiology | DX: R74.8 Abnormal levels of other serum enzymes (principal) | CPT/HCPCS: 36415; 82550 ==

== ENCOUNTER 2017-08-13 17:09 | Inpatient (IN) | payer OTHER, MEDICARE ==
[2017-08-13 17:15] VITALS: RESP 18
[2017-08-13] MEDS ORDERED: NITROGLYCERIN OINT 1 INCH/GM PACKET TOPICAL STA (17:26)
[2017-08-13] MEDS ORDERED: ASPIRIN 81 MG PO STA (17:26)
--- NOTE | 2017-08-13 17:28 | ED ---
General Adult HPI - General Chief complaint: Chest Pain Stated complaint: Chest pain Time Seen by Provider: 08/13/17 17:10 Source: patient, family, RN notes reviewed Mode of arrival: wheelchair Limitations: no limitations - History of Present Illness Initial comments: This is a 66-year-old male with past medical history significant for 6 stent placements. Patient also has a past history significant for diabetes hypertension high cholesterol. Patient comes in today because started having chest pain or proximal in hour prior to arrival he stated it made her more short of breath than normal and it radiated to his left shoulder. Patient states there was no diaphoresis and no nausea. Patient took 3 nitroglycerin and thought the pain was reduced slightly. Patient denies any palpitations. He denies any recent fever chills or cough. Patient also took a pain pill prior to arrival. Patient states that this time he thinks the pain might be slightly reduced. Patient denies any abdominal pain patient denies any vomiting or diarrhea recently. Patient denies headache patient denies numbness weakness. Patient denies any lightheadedness dizziness or near syncopal episode. - Related Data Home Medications Medication Instructions Recorded Confirmed ARIPiprazole [Abilify] 5 mg PO HS 11/03/14 08/13/17 Citalopram Hydrobromide 40 mg PO DAILY 11/03/14 08/13/17 [Citalopram HBr] Saxagliptin HCl [Onglyza] 5 mg PO HS 11/03/14 08/13/17 Ascorbic Acid [Vitamin C] 500 mg PO DAILY 01/17/16 08/13/17 Cholecalciferol [Vitamin D3] 2,000 unit PO DAILY 01/17/16 08/13/17 Insulin Detemir [Levemir] 83 unit SQ BID 01/17/16 08/13/17 HYDROcodone/APAP 7.5-325MG [[place] 1 tab PO Q8H PRN 07/02/16 08/13/17 7.5-325] Gary-3 Fatty Acids/Fish Oil [Fish 1 cap PO DAILY 07/02/16 08/13/17 Oil 1,000 mg Softgel] traZODone HCL 150 mg PO HS 07/02/16 08/13/17 Aspirin EC [Ecotrin Low Dose] 81 mg PO DAILY 11/20/16 08/13/17 Colchicine 0.6 mg PO DAILY 11/20/16 08/13/17 Insulin Aspart [NovoLOG] 10 unit SQ AC-BRKFST 11/20/16 08/13/17 Isosorbide Mononitrate ER [Imdur] 30 mg PO HS 11/20/16 08/13/17 Montelukast [Singulair] 10 mg PO HS 11/20/16 08/13/17 Albuterol Sulfate [Proventil Hfa] 2 puff INHALATION RT-Q4H PRN 02/19/17 08/13/17 Budesonide/Formoterol Fumarate 2 puff INHALATION RT-BID 02/19/17 08/13/17 [Symbicort 160-4.5 Mcg Inhaler] Metoprolol Tartrate [Lopressor] 25 mg PO BID 02/19/17 08/13/17 Ferrous Sulfate [Feosol] 325 mg PO BID 04/29/17 08/13/17 Lisinopril [Zestril] 10 mg PO BID 04/29/17 08/13/17 Bisoprolol [Zebeta] 5 mg PO DAILY 07/27/17 08/13/17 Clopidogrel [Plavix] 75 mg PO DAILY 07/27/17 08/13/17 Hydrochlorothiazide [Hydrodiuril] 25 mg PO HS 07/27/17 08/13/17 Insulin Aspart [NovoLOG] 10 unit SQ AC-LUNCH 07/27/17 08/13/17 Insulin Aspart [NovoLOG] 12 unit SQ AC-SUPPER 07/27/17 08/13/17 Previous Rx's Medication Instructions Recorded Nitroglycerin Sl Tabs [Nitrostat] 0.4 mg SUBLINGUAL Q5M PRN #25 tab 12/16/16 Allergies Allergy/AdvReac Type Severity Reaction Status Date / Time No Known Allergies Allergy Verified 08/13/17 17:38 Review of Systems ROS Statement: Those systems with pertinent positive or pertinent negative responses have been documented in the HPI. ROS Other: All systems not noted in ROS Statement are negative. Past Medical History Past Medical History: Atrial Fibrillation, Coronary Artery Disease (CAD), Chest Pain / Angina, COPD, Diabetes Mellitus, Hyperlipidemia, Hypertension, Pneumonia , Sleep Apnea/CPAP/BIPAP Additional Past Medical History / Comment(s): USES CPAP. HX KIDNEY STONES, GOUT , CATARACTS. LASIK SX, BIPOLAR DEPRESSION. CP, SHORTNESS OF BREATH CURRENT. History of Any Multi-Drug Resistant Organisms: None Reported Past Surgical History: Heart Catheterization With Stent, Hernia Repair, Orthopedic Surgery, Tonsillectomy Additional Past Surgical History / Comment(s): Pilonidal cyst. EXC ABDI CATARACTS. Bilateral Knee Sx. LITHOTRIPSY. COLONOSCOPY. 05-15-16 at [facility] had heart cath w/1 stent, 05-21-16 had 2 more stents - total of 5 stents. another stent placed 06/26/17 Past Anesthesia/Blood Transfusion Reactions: No Reported Reaction Date of Last Stent Placement:: 06/25/2017 Past Psychological History: Bipolar, Depression Smoking Status: Former smoker Past Alcohol Use History: Rare Past Drug Use History: None Reported - Past Family History Mother Family Medical History: Coronary Artery Disease (CAD) Father Family Medical History: Coronary Artery Disease (CAD) Additional Family Medical History / Comment(s): emphysema General Exam - General Exam Comments Initial Comments: GENERAL: Patient is well-developed and well-nourished. Patient is nontoxic and well- hydrated and is in mild distress. ENT: Neck is soft and supple. No significant lymphadenopathy is noted. Oropharynx is clear. Moist mucous membranes. Neck has full range of motion without eliciting any pain. EYES: The sclera were anicteric and conjunctiva were pink and moist. Extraocular movements were intact and pupils were equal round and reactive to light. Eyelids were unremarkable. PULMONARY: Unlabored respirations. Good breath sounds bilaterally. No audible rales rhonchi or wheezing was noted. CARDIOVASCULAR: There is a regular rate and rhythm without any murmurs gallops or rubs. ABDOMEN: Soft and nontender with normal bowel sounds. No palpable organomegaly was noted. There is no palpable pulsatile mass. SKIN: Skin is clear with no lesions or rashes and otherwise unremarkable. NEUROLOGIC: Patient is alert and oriented x3. Cranial nerves II through XII are grossly intact. Motor and sensory are also intact. Normal speech, volume and content. Symmetrical smile. MUSCULOSKELETAL: Normal extremities with adequate strength and full range of motion. No lower extremity swelling or edema. No calf tenderness. LYMPHATICS: No significant lymphadenopathy is noted PSYCHIATRIC: Normal psychiatric evaluation. Normal interpersonal interactions appears functionally intact in deals appropriately with others. No signs of depression. No signs of anxiety. Limitations: no limitations Course Vital Signs 08/13/17 08/13/17 17:12 17:57 Temperature 97.8 F Pulse Rate 67 77 Respiratory 18 18 Rate Blood Pressure 171/76 133/70 O2 Sat by Pulse 93 L 98 Oximetry Medical Decision Making - Medical Decision Making EKG shows a normal sinus rhythm at 64 bpm OR interval is 148 QRSs 88 QT interval is 422 QTC is 435. Patient's EKG shows no ST segment elevation or depression or T wave abnormalities are noted. Chest x-ray shows no acute abnormality. I started the patient on heparin because of his significant symptoms and clinical picture. I called Dr. Sauceda he agreed to admit the patient admitted the patient wrote admitting orders I consult cardiology continued heparin Nitropaste and aspirin on the floor as well as a beta higinio. - Lab Data Result diagrams: 08/13/17 17:27 08/13/17 17:27 Lab Results 08/13/17 08/13/17 08/13/17 Range/Units 17:27 17:27 17:27 WBC 5.7 (3.8-10.6) k/uL RBC 3.66 L (4.30-5.90) m/uL Hgb 10.5 L (13.0-17.5) gm/dL Hct 32.9 L (39.0-53.0) % MCV 89.9 (80.0-100.0) fL MCH 28.7 (25.0-35.0) pg MCHC 31.9 (31.0-37.0) g/dL RDW 15.8 H (11.5-15.5) % Plt Count 218 (150-450) k/uL Neutrophils % 62 % Lymphocytes % 22 % Monocytes % 9 % Eosinophils % 3 % Basophils % 1 % Neutrophils # 3.6 (1.3-7.7) k/uL Lymphocytes # 1.2 (1.0-4.8) k/uL Monocytes # 0.5 (0-1.0) k/uL Eosinophils # 0.2 (0-0.7) k/uL Basophils # 0.1 (0-0.2) k/uL PT (9.0-12.0) sec INR (<1.2) APTT (22.0-30.0) sec Sodium 141 (137-145) mmol/L Potassium 4.2 (3.5-5.1) mmol/L Chloride 106 (98-107) mmol/L Carbon Dioxide 26 (22-30) mmol/L Anion Gap 9 mmol/L BUN 24 H (9-20) mg/dL Creatinine 1.24 (0.66-1.25) mg/dL Est GFR (MDRD) Af Amer >60 (>60 ml/min/1.73 sqM) Est GFR (MDRD) Non-Af 58 (>60 ml/min/1.73 sqM) Glucose 223 H (74-99) mg/dL Calcium 8.4 (8.4-10.2) mg/dL Magnesium 1.2 L (1.6-2.3) mg/dL Total Bilirubin 0.1 L (0.2-1.3) mg/dL AST 36 (17-59) U/L ALT 62 (21-72) U/L Alkaline Phosphatase 108 (38-126) U/L Total Creatine Kinase 541 H (55-170) U/L CK-MB (CK-2) 5.0 H* (0.0-2.4) ng/mL CK-MB (CK-2) Rel Index 0.9 Troponin I <0.012 (0.000-0.034) ng/mL Total Protein 6.2 L (6.3-8.2) g/dL Albumin 3.6 (3.5-5.0) g/dL 08/13/17 Range/Units 17:27 WBC (3.8-10.6) k/uL RBC (4.30-5.90) m/uL Hgb (13.0-17.5) gm/dL Hct (39.0-53.0) % MCV (80.0-100.0) fL MCH (25.0-35.0) pg MCHC (31.0-37.0) g/dL RDW (11.5-15.5) % Plt Count (150-450) k/uL Neutrophils % % Lymphocytes % % Monocytes % % Eosinophils % % Basophils % % Neutrophils # (1.3-7.7) k/uL Lymphocytes # (1.0-4.8) k/uL Monocytes # (0-1.0) k/uL Eosinophils # (0-0.7) k/uL Basophils # (0-0.2) k/uL PT 10.3 (9.0-12.0) sec INR 1.0 (<1.2) APTT 23.7 (22.0-30.0) sec Sodium (137-145) mmol/L Potassium (3.5-5.1) mmol/L Chloride (98-107) mmol/L Carbon Dioxide (22-30) mmol/L Anion Gap mmol/L BUN (9-20) mg/dL Creatinine (0.66-1.25) mg/dL Est GFR (MDRD) Af Amer (>60 ml/min/1.73 sqM) Est GFR (MDRD) Non-Af (>60 ml/min/1.73 sqM) Glucose (74-99) mg/dL Calcium (8.4-10.2) mg/dL Magnesium (1.6-2.3) mg/dL Total Bilirubin (0.2-1.3) mg/dL AST (17-59) U/L ALT (21-72) U/L Alkaline Phosphatase (38-126) U/L Total Creatine Kinase (55-170) U/L CK-MB (CK-2) (0.0-2.4) ng/mL CK-MB (CK-2) Rel Index Troponin I (0.000-0.034) ng/mL Total Protein (6.3-8.2) g/dL Albumin (3.5-5.0) g/dL Critical Care Time Critical Care Time: Yes Total Critical Care Time: 35 Disposition Clinical Impression: Unstable angina pectoris Disposition: ADMITTED IP TO THIS HOSP Referrals: Andrea Fierro DO [Primary Care Provider] - 1-2 days Time of Disposition: 18:40
[2017-08-13 17:37] LABS: Basophils # (A) 0.1 k/uL (0-0.2); Basophils % (A) 1 %; CH 30.4; CHCM 34.1; Eosinophils # (A) 0.2 k/uL (0-0.7); Eosinophils % (A) 3 %; HCT 32.9 % (39.0-53.0); HDW 2.98; HGB 10.5 gm/dL (13.0-17.5); Luc # (Auto) 0.16; Luc % (Auto) 3; Lymphocytes # (A) 1.2 k/uL (1.0-4.8); Lymphocytes % (A) 22 %; MCH 28.7 pg (25.0-35.0); MCHC 31.9 g/dL (31.0-37.0); MCV 89.9 fL (80.0-100.0); Mean Platelet Volume 7.5; Monocytes # (A) 0.5 k/uL (0-1.0); Monocytes % (A) 9 %; Neutrophils # (A) 3.6 k/uL (1.3-7.7); Neutrophils % (A) 62 %; RBC 3.66 m/uL (4.30-5.90); RDW 15.8 % (11.5-15.5); WBC 5.7 k/uL (3.8-10.6); WBC (Perox) 5.99
[2017-08-13 17:47] LABS: ALT 62 U/L (21-72); AST 36 U/L (17-59); Alkaline Phosphatase 108 U/L (38-126); Anion Gap 9 mmol/L; Blood Urea Nitrogen 24 mg/dL (9-20); Calcium 8.4 mg/dL (8.4-10.2); Carbon Dioxide 26 mmol/L (22-30); Chloride 106 mmol/L (98-107); Glucose 223 mg/dL (74-99); Magnesium 1.2 mg/dL (1.6-2.3); Non-African American GFR(MDRD) 58 (>60 ml/min/1.73 sqM); Potassium 4.2 mmol/L (3.5-5.1); Sodium 141 mmol/L (137-145); Total Bilirubin 0.1 mg/dL (0.2-1.3); Total Protein 6.2 g/dL (6.3-8.2)
[2017-08-13 17:48] LABS: Partial Thromboplastin Time 23.7 sec (22.0-30.0); Prothrombin Time 10.3 sec (9.0-12.0)
[2017-08-13 18:03] LABS: Creatine Kinase 541 U/L (55-170)
[2017-08-13 18:15] LABS: Troponin I <0.012 ng/mL (0.000-0.034)
--- NOTE | 2017-08-13 18:19 | XR ---
EXAMINATION TYPE: XR chest 2V DATE OF EXAM: 08/13/2017 COMPARISON: 07/06/2017 HISTORY: Chest pain TECHNIQUE: Frontal and lateral views of the chest are obtained. FINDINGS: There is mild coarsening of interstitial pulmonary markings. There is no gross heart failu re. There is no pleural effusion. Bony thorax is intact. There are chest leads. IMPRESSION: Mild pulmonary fibrotic changes. No acute lung disease. No change.
[2017-08-13] MEDS ORDERED: NITROGLYCERIN SL TABS 0.4 MG TAB SUBLINGUAL PRN (18:41)
[2017-08-13 20:04] LABS: Glucose,Whole Blood 238 mg/dL (75-99)
[2017-08-13] MEDS: METOPROLOL TARTRATE 25 MG TAB PO SCH (20:10)
[2017-08-13] MEDS: INSULIN LISPRO (humaLOG) 300 UNIT/3 ML VIAL SQ SCH (20:11)
[2017-08-13] MEDS ORDERED: Magnesium Replacement Protocol 1 EACH MISC MISCELLANE PRN (21:16)
[2017-08-13] MEDS ORDERED: Potassium Replacement Protocol 1 EACH MISC MISCELLANE PRN (21:17)
--- NOTE | 2017-08-13 22:25 | HP ---
HISTORY AND PHYSICAL CHIEF COMPLAINT: Chest pain. HISTORY OF PRESENT ILLNESS: This 66-year-old gentleman with a past medical history of CAD, COPD, diabetes mellitus, hypertension, hyperlipidemia, history of pneumonia, sleep apnea, being followed by Dr. Fierro in the outpatient setting, was watching TV. Subsequently patient had pain in the anterior part of the chest which was sharp in character radiating to the left upper arm, and the patient came to [facility] and was admitted for further evaluation and treatment. The patient took and nitro with some relief in the pain. There is no history of any fever, rigor or chills; no history of headache , loss of consciousness. The patient has extensive cardiac history previously. The initial troponins are negative at this time. There is no history of headache, loss of consciousness, seizures. Patient had hypomagnesemia. PAST MEDICAL HISTORY: 1. History of atrial fibrillation. 2. CAD and stent. 3. History of COPD. 4. Diabetes mellitus. 5. Hypertension. 6. Hyperlipidemia. 7. History of sleep apnea. HOME MEDICATIONS: 1. Lipitor 20 mg at bedtime. 2. Trazodone 50 mg at bedtime. 3. Onglyza 5 mg at bedtime. 4. Fish oil 1 daily. 5. Nitrostat 0.4 daily. 6. Singular 10 mg at bedtime. 7. Lopressor 25 mg b.i.d. 8. Zestril 10 mg b.i.d. 9. Imdur 30 mg at bedtime. 10.Levemir 83 units subcutaneously b.i.d. 11.NovoLog 12 units and 10 units. 12.HydroDIURIL 25 mg at bedtime. 13.[place] 7.5 mg q.8 p.r.n. 14.Iron sulfate 325 mg p.o. b.i.d. 15.Colchicine 0.6 daily. 16.Plavix 75 mg daily. 17.Celexa 40 mg p.o. daily. 18.Vitamin D3 2000 daily. 19.Symbicort 160/4.5 two puffs b.i.d. 20.Zebeta 5 mg p.o. daily. 21.Ecotrin 81 mg daily. 22.Vitamin C 500 daily. 23.Proventil 2 puffs q.4 p.r.n. 24.Abilify 5 mg at bedtime. ALLERGIES: NONE. FAMILY HISTORY: History of colon coronary artery disease and emphysema in the family. SOCIAL HISTORY: Previous history of smoking. Occasional alcohol intake. 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 REVIEW OF SYSTEMS: ENT: No diminished hearing. No diminished vision. CARDIOVASCULAR SYSTEM: As mentioned earlier. RESPIRATORY SYSTEM: As mentioned earlier. GI: No nausea, vomiting. : No dysuria or retention. NERVOUS SYSTEM: No numbness, weakness. ALLERGY/IMMUNOLOGY: No asthma, hayfever. MUSCULOSKELETAL: As mentioned earlier. HEMATOLOGY/ONCOLOGY: No history of anemia. ENDOCRINE: As mentioned earlier. CONSTITUTIONAL: As mentioned earlier. DERMATOLOGY: Negative. RHEUMATOLOGY: Negative. PSYCHIATRY: As mentioned earlier. PHYSICAL EXAMINATION: Patient is alert and oriented x3. Pulse 72, blood pressure 169/77, respiration 18, temperature 97 degrees, pulse ox 93% on 2 L. HEENT: Conjunctivae normal. Oral mucosa moist. NECK: No jugular venous distention. No carotid bruit. No lymph node enlargement. CARDIOVASCULAR SYSTEM: S1, S2 muffled. No S3. No S4. RESPIRATORY SYSTEM: Breath sounds diminished at the bases. No rhonchi. No crackles. ABDOMEN: Soft, obese, nontender. No mass palpable. LEGS: No edema. No swelling. NERVOUS SYSTEM: Higher functions as mentioned earlier. Moves all 4 limbs. No focal motor or sensory deficit. LYMPHATICS: No lymph node palpable in neck, axillae or groin. SKIN: No ulcer, rash, bleeding. LABS: WBC 5.6, hemoglobin 10.5. Glucose 223. EKG which was done at the time of admission shows normal sinus rhythm; no acute abnormalities. Chest x-ray shows mild pulmonary fibrotic changes. ASSESSMENT: 1. Chest pain, possible unstable angina, possibly musculoskeletal. 2. History of coronary artery disease with stent. 3. Atrial fibrillation. 4. Chronic obstructive pulmonary disease. 5. Diabetes mellitus, type 2. 6. Hypertension. 7. Hyperlipidemia. 8. Sleep apnea. 9. Bipolar depression. RECOMMENDATIONS AND DISCUSSION: In this 66-year-old gentleman who presented with multiple complex medical issues , will monitor the patient closely, continue the current medications, continue with symptomatic treatment. Unstable angina protocol. Guarded prognosis because of multiple complex medical issues. Otherwise, Cardiology wants him n.p.o. past midnight. We will continue to monitor. Further recommendations to follow. MMODL / IJN: [id number] / SHANNEN
[2017-08-13 23:04] LABS: Hemoglobin A1C 8.2 % (4.2-6.1)
[2017-08-13] MEDS: MAGNESIUM SULFATE-D5W PMX 1 GM in DEXTROSE/WATER 1 100ML.BAG IVPB SCH (23:11)
[2017-08-13] MEDS ORDERED: INSULIN DETEMIR 100 UNIT/ML 10 ML VIAL SQ SCH (23:30)
[2017-08-13] MEDS ORDERED: INSULIN GLARGINE 100 UNIT/ML 10 ML VIAL SQ SCH (23:30)
[2017-08-13] MEDS: NITROGLYCERIN OINT 1 INCH/GM PACKET TOPICAL SCH (23:34)
[2017-08-14] MEDS: MAGNESIUM SULFATE-D5W PMX 1 GM in DEXTROSE/WATER 1 100ML.BAG IVPB SCH ×2 (00:06→00:56)
[2017-08-14 01:00] LABS: Troponin I 0.016 ng/mL (0.000-0.034)
[2017-08-14 05:51] LABS: Anion Gap 7 mmol/L; Blood Urea Nitrogen 25 mg/dL (9-20); Calcium 8.6 mg/dL (8.4-10.2); Carbon Dioxide 26 mmol/L (22-30); Chloride 105 mmol/L (98-107); Cholesterol 141 mg/dL (<200); Glucose 180 mg/dL (74-99); HDL Cholesterol 36 mg/dL (40-60); Magnesium 1.8 mg/dL (1.6-2.3); Non-African American GFR(MDRD) >60 (>60 ml/min/1.73 sqM); Potassium 4.5 mmol/L (3.5-5.1); Sodium 138 mmol/L (137-145)
[2017-08-14 06:06] LABS: Troponin I 0.019 ng/mL (0.000-0.034)
[2017-08-14 06:27] LABS: Glucose,Whole Blood 163 mg/dL (75-99)
[2017-08-14] MEDS: NITROGLYCERIN OINT 1 INCH/GM PACKET TOPICAL SCH ×4 (06:29→23:31)
[2017-08-14] MEDS: INSULIN LISPRO (humaLOG) 300 UNIT/3 ML VIAL SQ SCH ×4 (06:29→22:00)
[2017-08-14 06:30] LABS: Creatine Kinase MB 4.8 ng/mL (0.0-2.4)
--- NOTE | 2017-08-14 08:59 | P.CRDCN ---
History of Present Illness Consult date: 08/14/17 Requesting physician: José Miguel Sauceda Consult reason: chest pain Chief complaint: Chest pain History of present illness: This is a pleasant 66-year-old gentleman who follows regularly with Dr. Forrest in the office. He has a known history of diabetes, hypertension, COPD, hyperlipidemia, family history of premature coronary artery disease, coronary artery disease with multiple stent placements. Most recent stent procedure was done in June of this year at which time patient underwent successful stenting of the right PLV with reduction in stenosis from 95% to 0%. Cardiac catheterization performed at that time also revealed a patent stent in the proximal mid and distal RCA. Mild disease in the circumflex and LAD, and preserved left ventricular systolic function. The patient did have a subsequent admission to the hospital in July with symptoms of atypical chest pain, troponins were negative and he was discharged home. Subsequent to that he had an emergency room visit in mid July and again presents to the hospital on this occasion with symptoms of chest discomfort. He states on this episode he was just sitting down watching TV when he developed a sharp pain in the mid to left chest area with radiation up into his left upper chest and left shoulder region. He denies any associated shortness of breath or diaphoresis. He states that the symptoms lasted approximately one hour in duration. He took 3 sublingual nitroglycerin along with ibuprofen and analgesic without relief of symptoms. EKG performed on arrival here showed a normal sinus rhythm with no acute changes. Subsequent EKG performed showed a normal sinus rhythm with no acute changes. The pressure on arrival 170/70 with a heart rate in the 60s, 93 % on room air. Hemoglobin 10.5, platelet count 218, and is noted to have a hemoglobin in the range. Sodium 138, potassium 4.5, BUN 25, creatinine 1.1. Blood glucose on arrival to 23. Magnesium level on arrival 1.2, 1.8 this morning replaced. CK 541, 557, 564, MB 5.0, 5.0, and 4.8. Troponin 0.012, 0.016, 0.019. Cholesterol 141, triglycerides 281, LDL 49 and HDL 36. Patient is noted on all prior admissions to have persistent elevation of his CK-MBs, however troponins on recent admissions have been less than 0.012. Chest x-ray reveals mild pulmonary fibrotic change with no acute disease. At the time of my examination this morning patient is currently chest pain-free. He is currently on aspirin, lisinopril, metoprolol tartrate, Nitropaste, is not on IV heparin, we will resume his Lipitor, and Plavix. Past Medical History Past Medical History: Atrial Fibrillation, Coronary Artery Disease (CAD), Chest Pain / Angina, COPD, Diabetes Mellitus, Hyperlipidemia, Hypertension, Pneumonia , Sleep Apnea/CPAP/BIPAP Additional Past Medical History / Comment(s): USES CPAP. HX KIDNEY STONES, GOUT , CATARACTS. LASIK SX, BIPOLAR DEPRESSION. LOWER BRIDGE. History of Any Multi-Drug Resistant Organisms: None Reported Past Surgical History: Heart Catheterization With Stent, Hernia Repair, Orthopedic Surgery, Tonsillectomy Additional Past Surgical History / Comment(s): Pilonidal cyst. EXC ABDI CATARACTS. Bilateral Knee Sx. LITHOTRIPSY. COLONOSCOPY. 05-15-16 at [facility] had heart cath w/1 stent, 05-21-16 had 2 more stents - total of 5 stents. another stent placed 06/26/17 Past Anesthesia/Blood Transfusion Reactions: No Reported Reaction Date of Last Stent Placement:: 06/25/2017 Smoking Status: Former smoker - Past Family History Mother Family Medical History: Coronary Artery Disease (CAD) Father Family Medical History: Coronary Artery Disease (CAD) Additional Family Medical History / Comment(s): emphysema Medications and Allergies Home Medications Medication Instructions Recorded Confirmed Type ARIPiprazole [Abilify] 5 mg PO HS 11/03/14 08/13/17 History Citalopram Hydrobromide 40 mg PO DAILY 11/03/14 08/13/17 History [Citalopram HBr] Saxagliptin HCl [Onglyza] 5 mg PO HS 11/03/14 08/13/17 History Ascorbic Acid [Vitamin C] 500 mg PO DAILY 01/17/16 08/13/17 History Cholecalciferol [Vitamin D3] 2,000 unit PO DAILY 01/17/16 08/13/17 History Insulin Detemir [Levemir] 83 unit SQ BID 01/17/16 08/13/17 History HYDROcodone/APAP 7.5-325MG [[place] 1 tab PO Q8H PRN 07/02/16 08/13/17 History 7.5-325] Hailey-3 Fatty Acids/Fish Oil [Fish 1 cap PO DAILY 07/02/16 08/13/17 History Oil 1,000 mg Softgel] traZODone HCL 150 mg PO HS 07/02/16 08/13/17 History Aspirin EC [Ecotrin Low Dose] 81 mg PO DAILY 11/20/16 08/13/17 History Colchicine 0.6 mg PO DAILY 11/20/16 08/13/17 History Insulin Aspart [NovoLOG] 10 unit SQ AC-BRKFST 11/20/16 08/13/17 History Isosorbide Mononitrate ER [Imdur] 30 mg PO HS 11/20/16 08/13/17 History Montelukast [Singulair] 10 mg PO HS 11/20/16 08/13/17 History Nitroglycerin Sl Tabs [Nitrostat] 0.4 mg SUBLINGUAL Q5M PRN #25 tab 12/16/1610/18 Rx Albuterol Sulfate [Proventil Hfa] 2 puff INHALATION RT-Q4H PRN 02/19/17 History Budesonide/Formoterol Fumarate 2 puff INHALATION RT-BID 02/19/17 08/13/17 History [Symbicort 160-4.5 Mcg Inhaler] Metoprolol Tartrate [Lopressor] 25 mg PO BID 02/19/17 08/13/17 History Ferrous Sulfate [Feosol] 325 mg PO BID 04/29/17 08/13/17 History Lisinopril [Zestril] 10 mg PO BID 04/29/17 08/13/17 History Bisoprolol [Zebeta] 5 mg PO DAILY 07/27/17 08/13/17 History Clopidogrel [Plavix] 75 mg PO DAILY 07/27/17 08/13/17 History Hydrochlorothiazide [Hydrodiuril] 25 mg PO HS 07/27/17 08/13/17 History Insulin Aspart [NovoLOG] 10 unit SQ AC-LUNCH 07/27/17 08/13/17 History Insulin Aspart [NovoLOG] 12 unit SQ AC-SUPPER 07/27/17 08/13/17 History Atorvastatin [Lipitor] 20 mg PO HS 08/13/17 08/13/17 History Allergies Allergy/AdvReac Type Severity Reaction Status Date / Time No Known Allergies Allergy Verified 08/13/17 17:38 Physical Exam Vitals: Vital Signs Temp Pulse Pulse Resp BP BP BP 08/14/17 06:58 74 157/79 08/14/17 04:00 97.1 F L 77 18 166/79 08/14/17 00:00 76 18 163/80 08/13/17 20:13 97 F L 72 18 169/77 08/13/17 18:59 72 18 166/74 08/13/17 17:57 77 18 133/70 08/13/17 17:12 97.8 F 67 18 171/76 Pulse Ox 08/14/17 06:58 08/14/17 04:00 93 L 08/14/17 00:00 93 L 08/13/17 20:13 93 L 08/13/17 18:59 98 08/13/17 17:57 98 08/13/17 17:12 93 L Intake and Output 08/13/17 08/14/17 08/14/17 22:59 06:59 14:59 Intake Total 300 Output Total 400 Balance 300 -400 Intake: Oral 300 Output: Urine 400 Other: # Voids 1 1 Weight 105.687 kg 115 kg PHYSICAL EXAMINATION: HEENT: Head is atraumatic, normocephalic. Pupils equal, round. Neck is supple. There is no elevated jugular venous pressure. HEART EXAMINATION: Heart S1, S2 normal. No murmur or gallop heard. CHEST EXAMINATION: Lungs are clear to auscultation and precussion. No chest wall tenderness is noted on palpation or with deep breathing. ABDOMEN: Soft, nontender. Bowel sounds are heard. No organomegaly noted. EXTREMITIES: 2+ peripheral pulses with no evidence of peripheral edema and no calf tenderness noted. NEUROLOGIC patient is awake, alert and oriented -3. . Results 08/13/17 17:27 08/14/17 05:15 Cardiac Enzymes 08/13/17 08/13/17 08/13/17 Range/Units 17:27 17:27 23:49 AST 36 (17-59) U/L CK-MB (CK-2) 5.0 H* 5.0 H* (0.0-2.4) ng/mL Troponin I <0.012 0.016 (0.000-0.034) ng/mL 08/14/17 Range/Units 05:15 AST (17-59) U/L CK-MB (CK-2) 4.8 H* (0.0-2.4) ng/mL Troponin I 0.019 (0.000-0.034) ng/mL Coagulation 08/13/17 Range/Units 17:27 PT 10.3 (9.0-12.0) sec APTT 23.7 (22.0-30.0) sec Lipids 08/14/17 Range/Units 05:15 Triglycerides 281 H (<150) mg/dL Cholesterol 141 (<200) mg/dL HDL Cholesterol 36 L (40-60) mg/dL CBC 08/13/17 Range/Units 17:27 WBC 5.7 (3.8-10.6) k/uL RBC 3.66 L (4.30-5.90) m/uL Hgb 10.5 L (13.0-17.5) gm/dL Hct 32.9 L (39.0-53.0) % Plt Count 218 (150-450) k/uL Comprehensive Metabolic Panel 08/13/17 08/14/17 Range/Units 17:27 05:15 Sodium 141 138 (137-145) mmol/L Potassium 4.2 4.5 (3.5-5.1) mmol/L Chloride 106 105 (98-107) mmol/L Carbon Dioxide 26 26 (22-30) mmol/L BUN 24 H 25 H (9-20) mg/dL Creatinine 1.24 1.10 (0.66-1.25) mg/dL Glucose 223 H 180 H (74-99) mg/dL Calcium 8.4 8.6 (8.4-10.2) mg/dL AST 36 (17-59) U/L ALT 62 (21-72) U/L Alkaline Phosphatase 108 (38-126) U/L Total Protein 6.2 L (6.3-8.2) g/dL Albumin 3.6 (3.5-5.0) g/dL Current Medications Generic Name Dose Route Start Last Admin Trade Name Freq PRN Reason Stop Dose Admin Aspirin 325 mg 08/14/17 09:00 Aspirin PO DAILY [facility] Insulin Human Lispro 0 unit 08/13/17 21:00 08/14/17 06:29 Humalog SQ 2 unit ACHS [facility] Administration Protocol Lisinopril 10 mg 08/14/17 09:00 Zestril PO BID SALLY Metoprolol Tartrate 25 mg 08/13/17 21:00 08/13/17 20:10 Lopressor PO 25 mg BID SALLY Administration Miscellaneous Information 1 each 08/13/17 21:16 Magnesium Per Protocol MISCELLANE DAILY PRN Per Protocol Protocol Miscellaneous Information 1 each 08/13/17 21:17 Potassium Per Protocol MISCELLANE DAILY PRN Per Protocol Protocol Nitroglycerin 1 inch 08/14/17 00:00 08/14/17 06:29 Nitro-Bid Oint TOPICAL 1 inch Q6HR SALLY Administration Nitroglycerin 0.4 mg 08/13/17 18:41 Nitrostat SUBLINGUAL Q5M PRN Chest Pain Intake and Output 08/13/17 08/14/17 08/14/17 22:59 06:59 14:59 Intake Total 300 Output Total 400 Balance 300 -400 Intake: Oral 300 Output: Urine 400 Other: # Voids 1 1 Weight 105.687 kg 115 kg 08/13/17 17:27 08/14/17 05:15 EKG Interpretations (text) KG shows normal sinus rhythm with no acute changes. Assessment and Plan Plan: Assessment and plan #1 chest pain with atypical features, however troponins are on an upward rise. 0.012, 0.016, 0.019. EKG shows normal sinus rhythm with no acute changes. #2 known history of coronary artery disease with prior stent placements, most recent stent was placed in June of this year at which time patient underwent successful stenting of the right PLV with reduction in stenosis from 95% to 0%. Patient does have prior stents in the RCA and mid LAD as well as well. #3 diabetes #4 hypertension #5 hyperlipidemia #6 family history of premature coronary artery disease #7 hypomagnesemia, replaced. #8 elevated CK and MBs, patient's Lipitor dose had been decreased to 20 mg daily because of a CK of 755 last month. Plan We will resume the patient's Plavix as well as Lipitor. Continue aspirin. Continue beta higinio and SOBEIDA inhibitor. As of the patient's recurrence of symptoms and now mild rise in troponins, he is recommended to undergo cardiac catheterization. The and the benefits again were explained to the patient in detail. DNP note has been reviewed, I agree with a documented findings and plan of care. Patient was seen and examined.
[2017-08-14] MEDS ORDERED: ASPIRIN 325 MG TAB PO SCH (09:00)
[2017-08-14] MEDS ORDERED: CLOPIDOGREL 75 MG TAB PO SCH (09:00)
[2017-08-14] MEDS: LISINOPRIL 10 MG TAB PO SCH ×2 (09:42→21:59)
[2017-08-14] MEDS ORDERED: ASPIRIN 325 MG TAB PO STA (10:19)
[2017-08-14] MEDS ORDERED: SODIUM CHLORIDE 0.9% 1,000 ML in EMPTY BAG 1 BAG IV ONE (10:19)
[2017-08-14] MEDS ORDERED: ALPRAZolam 0.5 MG TAB PO PRN (10:19)
[2017-08-14] MEDS ORDERED: ATORVASTATIN 80 MG TAB PO STA (10:19)
[2017-08-14] MEDS ORDERED: NITROGLYCERIN SL TABS 0.4 MG TAB SUBLINGUAL PRN (10:19)
[2017-08-14] MEDS ORDERED: ALPRAZolam 0.25 MG TAB PO PRN (10:19)
[2017-08-14] MEDS: METOPROLOL TARTRATE 25 MG TAB PO SCH ×2 (10:36→21:59)
[2017-08-14 11:52] LABS: Glucose,Whole Blood 203 mg/dL (75-99)
[2017-08-14] MEDS ORDERED: fentaNYL (PF) 50 MCG/ML 2 ML AMP IV ONE (12:58)
[2017-08-14] MEDS ORDERED: IV FLUID CONTINUATION 1,000 ML IV ONE (12:58)
[2017-08-14] MEDS: MIDAZOLAM 2 MG/2 ML VIAL IV ONE ×2 (12:58→13:05)
[2017-08-14] MEDS ORDERED: LIDOCAINE 2% INJ 20 MG/ML SQ ONE (13:01)
--- NOTE | 2017-08-14 13:16 | ECHOF ---
Referral Reason:chest pain MEASUREMENTS -------- HEIGHT: 152.4 cm WEIGHT: 114.8 kg BP: RVIDd: 3.2 cm (< 3.3) IVSd: 1.2 cm (0.6 - 1.1) LVIDd: 3.9 cm (3.9 - 5.3) LVPWd: 1.3 cm (0.6 - 1.1) IVSs: 1.8 cm LVIDs: 2.8 cm LVPWs: 1.8 cm LAESV Index (A-L): 23.66 ml/m Ao Diam: 3.0 cm (2.0 - 3.7) AV Cusp: 1.8 cm (1.5 - 2.6) LA Diam: 4.3 cm (2.7 - 3.8) MV EXCURSION: 15.618 mm (> 18.000) MV EF SLOPE: 101 mm/s (70 - 150) EPSS: 0.8 cm MV E Jovan: 1.01 m/s MV DecT: 202 ms MV A Jovan: 0.64 m/s MV E/A Ratio: 1.59 RAP: 5.00 mmHg RVSP: 40.52 mmHg FINDINGS -------- Sinus rhythm. This was a technically adequate study. The left ventricular size is normal. There is mild concentric left ventricular hypertrophy. Overall left ventricular systolic function is normal with, an EF between 55 - 60 %. The right ventricle is normal in size. Normal LA size by volume 22+/-6 ml/m2. The right atrial size is normal. There is mild aortic valve sclerosis. There is no evidence of aortic regurgitation. Mild mitral annular calcification present. Mild mitral regurgitation is present. Mild tricuspid regurgitation present. There is mild pulmonary hypertension. The right ventricular systolic pressure, as measured by Doppler, is 40.52mmHg. Trace/mild (physiologic) pulmonic regurgitation. The aortic root size is normal. There is no pericardial effusion. CONCLUSIONS -------- 1. The left ventricular size is normal. 2. The right ventricular systolic pressure, as measured by Doppler, is 40.52mmHg. 3. Trace/mild (physiologic) pulmonic regurgitation. 4. The aortic root size is normal. 5. There is no pericardial effusion. 6. There is mild concentric left ventricular hypertrophy. 7. Overall left ventricular systolic function is normal with, an EF between 55 - 60 %. 8. Normal LA size by volume 22+/-6 ml/m2. 9. There is mild aortic valve sclerosis. 10. Mild mitral annular calcification present. 11. Mild mitral regurgitation is present. 12. Mild tricuspid regurgitation present. 13. There is mild pulmonary hypertension. ROLL BUCKER: Iraida Lopez RDCS
[2017-08-14] MEDS ORDERED: IOHEXOL 350 MG/ML 125ML BOTTLE INJ ONE (13:23)
[2017-08-14] MEDS ORDERED: amLODIPine 5 MG TAB PO ONE (13:27)
--- NOTE | 2017-08-14 13:53 | CC ---
CARDIAC CATHETERIZATION REPORT This patient was admitted with the complaint of chest discomfort suggestive of unstable angina syndrome. Patient had a mildly elevated troponin. This patient had a recent stent to the PLV branch and since then, he has come to the hospital 3 times. In view of the abnormal troponin level suggestive of non-Q-wave myocardial infarction, patient was recommended to have a cardiac catheterization for definitive diagnosis. PROCEDURE: The right groin was prepped and draped in the usual manner and the skin was infiltrated with 2% xylocaine. The right femoral artery was entered using Seldinger technique. A #6-Wallisian sheath was placed in. Selective coronary angiography was then performed in multiple projections. Left ventricular pressures were obtained. Patient tolerated the procedure well. Sheath was removed and good hemostasis was achieved with the use of Angio-Seal. HEMODYNAMICS: Left ventricular end-diastolic pressure is 20 mmHg prior to angiography. No gradient is noted across the aortic valve. SELECTIVE CORONARY ANGIOGRAPHY: Left main coronary artery is normally patent. LAD is a good caliber blood vessel uses a small size diagonal branch. The distal LAD has a 50% stenosis which is unchanged from before. There is a good size intermediate branch which is normal. Circumflex coronary artery gives rise to a good size obtuse marginal branch which is normal. Right coronary artery is a good caliber blood vessel, it is patent at the site of prior stent. Placement of the stent in the PLV branch is also patent with good flow noted in the right coronary artery. FINAL IMPRESSION: This study shows a patent stent in the proximal right coronary artery as well as in the PLV branch. There is a mild disease in the distal left anterior descending artery of about 50% which is unchanged. The circumflex coronary artery is normal. RECOMMENDATIONS: Medical treatment and risk factor modification. MMODL / IJN: [id number] /
[2017-08-14] MEDS ORDERED: RX INFO: IV CONTRAST WAS GIVEN 1 EACH MISC MISCELLANE PRN (14:14)
[2017-08-14] MEDS: SODIUM CHLORIDE 0.9% 1,000 ML IV SCH (15:09)
[2017-08-14 15:16] VITALS: BMI 36.3
[2017-08-14 16:36] LABS: Glucose,Whole Blood 213 mg/dL (75-99)
[2017-08-14] MEDS ORDERED: ATORVASTATIN 20 MG TAB PO SCH (21:00)
[2017-08-14 21:11] LABS: Glucose,Whole Blood 249 mg/dL (75-99)
--- NOTE | 2017-08-14 21:53 | PN ---
PROGRESS NOTE This 66-year-old gentleman admitted with chest pain had minimal changes in the troponin. Cardiology performed a cardiac catheterization. Cardiac cath showed a patent stent in the proximal RCA as well as in the PLV branch, mild disease in the distal LAD was noted. Medical treatment was recommended. No chest pain. No palpitations. No fever. PHYSICAL EXAMINATION: Alert and oriented x3. Pulse is 82, blood pressure 168/77, respiration 18, temperature normal, pulse ox 93% on room air. HEENT: Conjunctivae normal. NECK: No jugular venous distention. CARDIOVASCULAR SYSTEM: S1, S2 muffled. RESPIRATORY SYSTEM: Breath sounds diminished at the bases. No rhonchi. No crackles. Abdomen is soft, nontender. LEGS: No edema. No swelling. NERVOUS SYSTEM: No focal deficit. LABS: Accu-Cheks 163. Creatinine 5.6. Creatine kinase 564. Troponin 0.019. ASSESSMENT: 1. Chest pain, possible unstable angina, status post cardiac catheterization. 2. History of coronary artery disease with stents. 3. History of atrial fibrillation, chronic. 4. Chronic obstructive pulmonary disease. 5. Diabetes mellitus. 6. Hypertension. 7. Hyperlipidemia. 8. Sleep apnea. 9. Bipolar, depression. RECOMMENDATIONS AND DISCUSSION: I recommend to continue current medication, continue symptomatic treatment. Closely follow with Cardiology. Otherwise, prognosis is guarded. Further recommendations to follow. MMODL / IJN: [id number] /
[2017-08-14] MEDS: TICAGRELOR 90 MG TAB PO SCH (21:59)
[2017-08-14] MEDS ORDERED: HYDROcodone/APAP 7.5-325MG 1 EACH TAB PO PRN (22:53)
[2017-08-14] MEDS ORDERED: traZODone HCL 50 MG TAB PO SCH (23:00)
[2017-08-14] MEDS: INSULIN DETEMIR 100 UNIT/ML 10 ML VIAL SQ SCH (23:26)
[2017-08-15 06:20] LABS: Glucose,Whole Blood 170 mg/dL (75-99)
[2017-08-15] MEDS: NITROGLYCERIN OINT 1 INCH/GM PACKET TOPICAL SCH ×2 (06:49→11:52)
[2017-08-15] MEDS: INSULIN LISPRO (humaLOG) 300 UNIT/3 ML VIAL SQ SCH ×2 (06:49→11:58)
[2017-08-15] MEDS: SODIUM CHLORIDE 0.9% 1,000 ML IV SCH (08:48)
[2017-08-15] MEDS: LISINOPRIL 10 MG TAB PO SCH (08:54)
[2017-08-15] MEDS: METOPROLOL TARTRATE 25 MG TAB PO SCH (08:55)
[2017-08-15] MEDS: TICAGRELOR 90 MG TAB PO SCH (08:55)
[2017-08-15] MEDS: INSULIN DETEMIR 100 UNIT/ML 10 ML VIAL SQ SCH (08:56)
[2017-08-15] MEDS ORDERED: ASPIRIN 81 MG PO SCH (09:00)
[2017-08-15 11:26] LABS: Glucose,Whole Blood 263 mg/dL (75-99)
[2017-08-15 12:27] VITALS: BP 153/81; PULSE 71; TEMP 97.6
--- NOTE | 2017-08-15 12:56 | P.PN ---
Subjective Progress Note Date: 08/15/17 Principal diagnosis: Chest pain This is a pleasant 66-year-old gentleman who follows regularly with Dr. Forrest in the office. He has a known history of diabetes, hypertension, COPD, hyperlipidemia, family history of premature coronary artery disease, coronary artery disease with multiple stent placements. Most recent stent procedure was done in June of this year at which time patient underwent successful stenting of the right PLV with reduction in stenosis from 95% to 0%. Cardiac catheterization performed at that time also revealed a patent stent in the proximal mid and distal RCA. Mild disease in the circumflex and LAD, and preserved left ventricular systolic function. The patient did have a subsequent admission to the hospital in July with symptoms of atypical chest pain, troponins were negative and he was discharged home. Subsequent to that he had an emergency room visit in mid July and again presents to the hospital on this occasion with symptoms of chest discomfort. He states on this episode he was just sitting down watching TV when he developed a sharp pain in the mid to left chest area with radiation up into his left upper chest and left shoulder region. He denies any associated shortness of breath or diaphoresis. He states that the symptoms lasted approximately one hour in duration. He took 3 sublingual nitroglycerin along with ibuprofen and analgesic without relief of symptoms. EKG performed on arrival here showed a normal sinus rhythm with no acute changes. Subsequent EKG performed showed a normal sinus rhythm with no acute changes. The pressure on arrival 170/70 with a heart rate in the 60s, 93 % on room air. Hemoglobin 10.5, platelet count 218, and is noted to have a hemoglobin in the range. Sodium 138, potassium 4.5, BUN 25, creatinine 1.1. Blood glucose on arrival to 23. Magnesium level on arrival 1.2, 1.8 this morning replaced. CK 541, 557, 564, MB 5.0, 5.0, and 4.8. Troponin 0.012, 0.016, 0.019. Cholesterol 141, triglycerides 281, LDL 49 and HDL 36. Patient is noted on all prior admissions to have persistent elevation of his CK-MBs, however troponins on recent admissions have been less than 0.012. Chest x-ray reveals mild pulmonary fibrotic change with no acute disease. At the time of my examination this morning patient is currently chest pain-free. He is currently on aspirin, lisinopril, metoprolol tartrate, Nitropaste, is not on IV heparin, we will resume his Lipitor, and Plavix. 08/15/2017 Patient underwent a cardiac catheterization yesterday which revealed a patent stent in the proximal right coronary artery as well as PLV branch. There is mild disease in the distal LAD of about 50% which was unchanged from previous, the or complex artery was normal. Maximum medical therapy was advised. Patient was seen and examined this morning, denies any chest pain or difficulty in breathing. Blood pressure this morning 142/70 with a heart rate in the 80s, 92% on room air. Objective - Vital Signs Vital signs: Vital Signs Temp 97.6 F 08/15/17 12:00 Pulse 71 08/15/17 12:00 Resp 18 08/15/17 12:00 BP 153/81 08/15/17 12:00 Pulse Ox 94 L 08/15/17 12:00 Intake & Output 08/14/17 08/15/17 08/15/17 18:59 06:59 18:59 Intake Total 365 600 180 Output Total 800 300 Balance 365 -200 -120 Weight 115 kg 114.8 kg Intake: IV 50 Intake, IV Titration 115 600 Amount Sodium Chloride 0.9% 1, 600 000 ml @ 75 mls/hr IV . [id number] [facility] Rx#:[id number] Sodium Chloride 0.9% 1, 115 000 ml In Empty Bag 1 bag @ 1 ML/KG/HR 115 mls/hr IV .[id number] ONE Rx#: [id number] Oral 200 180 Output: Urine 800 300 Other: Voiding Method Toilet Toilet Urinal Urinal # Voids 1 - Exam PHYSICAL EXAMINATION: HEENT: Head is atraumatic, normocephalic. Pupils equal, round. Neck is supple. There is no elevated jugular venous pressure. HEART EXAMINATION: Heart S1, S2 normal. No murmur or gallop heard. CHEST EXAMINATION: Lungs are clear to auscultation and precussion. No chest wall tenderness is noted on palpation or with deep breathing. ABDOMEN: Soft, nontender. Bowel sounds are heard. No organomegaly noted. Right groin soft, no evidence of any hematoma. EXTREMITIES: 2+ peripheral pulses with no evidence of peripheral edema and no calf tenderness noted. NEUROLOGIC patient is awake, alert and oriented -3. . - Labs CBC & Chem 7: 08/13/17 17:27 08/14/17 05:15 Labs: Abnormal Lab Results - Last 24 Hours (Table) 08/14/17 08/14/17 08/15/17 Range/Units 16:32 21:08 06:18 POC Glucose (mg/dL) 213 H 249 H 170 H (75-99) mg/dL 08/15/17 Range/Units 11:24 POC Glucose (mg/dL) 263 H (75-99) mg/dL Assessment and Plan Plan: Assessment and plan #1 chest pain with atypical features, however troponins are on an upward rise. 0.012, 0.016, 0.019. EKG shows normal sinus rhythm with no acute changes. #2 known history of coronary artery disease with prior stent placements, most recent stent was placed in June of this year at which time patient underwent successful stenting of the right PLV with reduction in stenosis from 95% to 0%. Patient does have prior stents in the RCA and mid LAD as well as well. #3 diabetes #4 hypertension #5 hyperlipidemia #6 family history of premature coronary artery disease #7 hypomagnesemia, replaced. #8 elevated CK and MBs, patient's Lipitor dose had been decreased to 20 mg daily because of a CK of 755 last month. Plan Cardiac catheterization was performed yesterday which revealed a patent stent in the proximal right coronary artery as well as in the PLV branch. There is mild disease in the distal LAD of approximately 50% which was unchanged from previous. Circumflex coronary artery was normal. Patient may be able to be discharged home today from cardiology's perspective, we will make him a follow- up appointment to see Dr. Forrest in the office post discharge. DNP note has been reviewed, I agree with a documented findings and plan of care. Patient was seen and examined.
--- NOTE | 2017-08-15 17:48 | P.DS ---
Providers Date of admission: 08/13/17 18:42 Attending physician: José Miguel Sauceda Consults: 08/13/17 18:42 Consult Physician Urgent Consulting Provider: [facility] Consult Reason/Comments: Unstable angina Do you want consulting provider notified?: Yes [facility] care [facility] Course: This 66-year-old gentleman with a past medical history multiple medical problems was admitted chest pain. Patient had a troponin of 0.019 and creatinine kinase of 564. Patient was seen by cardiology. Patient underwent a cardiac catheterization. The stents are patent. Medical treatment was recommended. Patient improved significantly. Patient be discharged in a stable condition with guarded prognosis after clearance cardiology. On exam vitals are stable. Cardio S1 and S2 normal. Respirator system. Clear to auscultation. Abdomen soft nontender. Nervous system focal deficit. Final diagnosis 1. Chest pain possibly unstable angina status post cardiac and cessation. 2. History of CAD with the stents. 3. History of atrial fibrillation chronic. 4. COPD. 5. Diabetes was type II. 6. Hypertension. 7. Hyperlipidemia. 8. Sleep apnea. 9. Bipolar depression. Plan - Discharge Summary New Discharge Prescriptions: New Ticagrelor [Brilinta] 90 mg PO BID #60 tab Continue Saxagliptin HCl [Onglyza] 5 mg PO HS Citalopram Hydrobromide [Citalopram HBr] 40 mg PO DAILY ARIPiprazole [Abilify] 5 mg PO HS Ascorbic Acid [Vitamin C] 500 mg PO DAILY Cholecalciferol [Vitamin D3] 2,000 unit PO DAILY Insulin Detemir [Levemir] 83 unit SQ BID traZODone HCL 150 mg PO HS HYDROcodone/APAP 7.5-325MG [[place] 7.5-325] 1 tab PO Q8H PRN PRN Reason: Pain [place]-3 Fatty Acids/Fish Oil [Fish Oil 1,000 mg Softgel] 1 cap PO DAILY Isosorbide Mononitrate ER [Imdur] 30 mg PO HS Aspirin EC [Ecotrin Low Dose] 81 mg PO DAILY Montelukast [Singulair] 10 mg PO HS Insulin Aspart [NovoLOG] 10 unit SQ AC-BRKFST Colchicine 0.6 mg PO DAILY Nitroglycerin Sl Tabs [Nitrostat] 0.4 mg SUBLINGUAL Q5M PRN #25 tab PRN Reason: Chest Pain Albuterol Sulfate [Proventil Hfa] 2 puff INHALATION RT-Q4H PRN PRN Reason: Shortness Of Breath Budesonide/Formoterol Fumarate [Symbicort 160-4.5 Mcg Inhaler] 2 puff INHALATION RT-BID Metoprolol Tartrate [Lopressor] 25 mg PO BID Ferrous Sulfate [Feosol] 325 mg PO BID Lisinopril [Zestril] 10 mg PO BID Clopidogrel [Plavix] 75 mg PO DAILY Hydrochlorothiazide [Hydrodiuril] 25 mg PO HS Insulin Aspart [NovoLOG] 10 unit SQ AC-LUNCH Insulin Aspart [NovoLOG] 12 unit SQ AC-SUPPER Atorvastatin [Lipitor] 20 mg PO HS Discontinued Bisoprolol [Zebeta] 5 mg PO DAILY Discharge Medication List ARIPiprazole [Abilify] 5 mg PO HS 11/03/14 [History] Citalopram Hydrobromide [Citalopram HBr] 40 mg PO DAILY 11/03/14 [History] Saxagliptin HCl [Onglyza] 5 mg PO HS 11/03/14 [History] Ascorbic Acid [Vitamin C] 500 mg PO DAILY 01/17/16 [History] Cholecalciferol [Vitamin D3] 2,000 unit PO DAILY 01/17/16 [History] Insulin Detemir [Levemir] 83 unit SQ BID 01/17/16 [History] HYDROcodone/APAP 7.5-325MG [[place] 7.5-325] 1 tab PO Q8H PRN 07/02/16 [History] [place]-3 Fatty Acids/Fish Oil [Fish Oil 1,000 mg Softgel] 1 cap PO DAILY [History] traZODone HCL 150 mg PO HS 07/02/16 [History] Aspirin EC [Ecotrin Low Dose] 81 mg PO DAILY 11/20/16 [History] Colchicine 0.6 mg PO DAILY 11/20/16 [History] Insulin Aspart [NovoLOG] 10 unit SQ AC-BRKFST 11/20/16 [History] Isosorbide Mononitrate ER [Imdur] 30 mg PO HS 11/20/16 [History] Montelukast [Singulair] 10 mg PO HS 11/20/16 [History] Nitroglycerin Sl Tabs [Nitrostat] 0.4 mg SUBLINGUAL Q5M PRN #25 tab 12/16/16 [Rx ] Albuterol Sulfate [Proventil Hfa] 2 puff INHALATION RT-Q4H PRN 02/19/17 [History ] Budesonide/Formoterol Fumarate [Symbicort 160-4.5 Mcg Inhaler] 2 puff INHALATION RT-BID 02/19/17 [History] Metoprolol Tartrate [Lopressor] 25 mg PO BID 02/19/17 [History] Ferrous Sulfate [Feosol] 325 mg PO BID 04/29/17 [History] Lisinopril [Zestril] 10 mg PO BID 04/29/17 [History] Clopidogrel [Plavix] 75 mg PO DAILY 07/27/17 [History] Hydrochlorothiazide [Hydrodiuril] 25 mg PO HS 07/27/17 [History] Insulin Aspart [NovoLOG] 10 unit SQ AC-LUNCH 07/27/17 [History] Insulin Aspart [NovoLOG] 12 unit SQ AC-SUPPER 07/27/17 [History] Atorvastatin [Lipitor] 20 mg PO HS 08/13/17 [History] Ticagrelor [Brilinta] 90 mg PO BID #60 tab 08/15/17 [Rx] Follow up Appointment(s)/Referral(s): Shantel Forrest MD [STAFF PHYSICIAN] - 1 Week (NO ANSWER AT OFFICE PT TO CALL THURSDAY MORNING FOR APPOINTMENT.) Andrea Fierro DO [Primary Care Provider] - 3 Days Ambulatory/Diagnostic Orders: Complete Blood Count w/diff [LAB.AMB] Time Frame: 3 Days, Location: Determined By Patient Complete Blood Count w/diff [LAB.AMB] Location: Determined By Patient Patient Instructions/Handouts: *Surgery [facility] - After Heart Catheterization - [employer] Instructions, Heart Healthy Diet (DC), Acute Coronary Syndrome ( DC), Cholesterol and Your Health (GEN) Activity/Diet/Wound Care/Special Instructions: supplier quality engineer Brilinta script from [facility] - free month coupon applied Diet: cardiac,Consist. carb., low cholesterol Activity: limited Till F/U Discharge Disposition: HOME SELF-CARE
== END 2017-08-15 14:23 | disposition home or self-care (01) | DRG 287 ==
LOC: EC 17:09 → 6SEL 18:42
PROVIDERS: ADMIT Hospitalist; ATTEND Hospitalist
PROC: B2111ZZ Fluoroscopy of Multiple Coronary Arteries using Low Osmolar Contrast (ICD-10-PCS; 2017-08-14)
PROC: 4A023N7 Measurement of Cardiac Sampling and Pressure, Left Heart, Percutaneous Approach (ICD-10-PCS; principal; 2017-08-14 12:30)
DX: I25.110 Atherosclerotic heart disease of native coronary artery with unstable angina pectoris (principal); I48.2 Chronic atrial fibrillation; J44.9 Chronic obstructive pulmonary disease, unspecified; E83.42 Hypomagnesemia; I10 Essential (primary) hypertension; Z95.5 Presence of coronary angioplasty implant and graft; E78.5 Hyperlipidemia, unspecified; G47.30 Sleep apnea, unspecified; F31.9 Bipolar disorder, unspecified; E78.00 Pure hypercholesterolemia, unspecified; E11.9 Type 2 diabetes mellitus without complications; M10.9 Gout, unspecified; Z79.02 Long term (current) use of antithrombotics/antiplatelets; Z79.4 Long term (current) use of insulin; Z79.51 Long term (current) use of inhaled steroids; Z79.82 Long term (current) use of aspirin; Z79.899 Other long term (current) drug therapy; Z87.01 Personal history of pneumonia (recurrent); Z87.891 Personal history of nicotine dependence; Z98.42 Cataract extraction status, left eye; Z98.41 Cataract extraction status, right eye; Z87.442 Personal history of urinary calculi; Z82.49 Family history of ischemic heart disease and other diseases of the circulatory system
CPT/HCPCS: 36415; 71020; 80048; 80053; 80061; 82550; 82553; 83036; 83735; 84443; 84484; 85025; 85610; 85730; 93005; 93306; 93458; 99291

== ENCOUNTER 2017-08-31 22:48 | Observation (INO) | payer OTHER, MEDICARE ==
--- NOTE | 2017-08-31 23:13 | ED ---
Chest Pain HPI - General Chief Complaint: Chest Pain Stated Complaint: Chest Pain Time Seen by Provider: 08/31/17 22:54 Source: patient, family, RN notes reviewed Mode of arrival: wheelchair Limitations: no limitations - History of Present Illness Initial Comments: This is a 66-year-old male with a history of heart disease cardiac stent COPD who states he had the onset about 3 hours ago recurrent chest pain. He states it was retrosternal going from right to left feel like pressure and tightness. It was 5/10 severity now is down to about 2 he did take nitroglycerin which did seem to help it 4 different episodes. He did take a baby aspirin daily 20 also he also takes blood thinners. He denies any fevers chills nausea vomiting sweats cough or phlegm production at this time. He does state the pain is almost gone MD Complaint: chest pain - Related Data Home Medications Medication Instructions Recorded Confirmed ARIPiprazole [Abilify] 5 mg PO HS 11/03/14 08/31/17 Citalopram Hydrobromide 40 mg PO DAILY 11/03/14 08/31/17 [Citalopram HBr] Saxagliptin HCl [Onglyza] 5 mg PO HS 11/03/14 08/31/17 Ascorbic Acid [Vitamin C] 500 mg PO DAILY 01/17/16 08/31/17 Cholecalciferol [Vitamin D3] 2,000 unit PO DAILY 01/17/16 08/31/17 Insulin Detemir [Levemir] 83 unit SQ BID 01/17/16 08/31/17 HYDROcodone/APAP 7.5-325MG [[place] 1 tab PO Q8H PRN 07/02/16 08/31/17 7.5-325] [place]-3 Fatty Acids/Fish Oil [Fish 1 cap PO DAILY 07/02/16 08/31/17 Oil 1,000 mg Softgel] traZODone HCL 150 mg PO HS 07/02/16 08/31/17 Aspirin EC [Ecotrin Low Dose] 81 mg PO DAILY 11/20/16 08/31/17 Colchicine 0.6 mg PO DAILY 11/20/16 08/31/17 Insulin Aspart [NovoLOG] 10 unit SQ AC-BRKFST 11/20/16 08/31/17 Isosorbide Mononitrate ER [Imdur] 30 mg PO HS 11/20/16 08/31/17 Montelukast [Singulair] 10 mg PO HS 11/20/16 08/31/17 Albuterol Sulfate [Proventil Hfa] 2 puff INHALATION RT-Q4H PRN 02/19/17 08/31/17 Budesonide/Formoterol Fumarate 2 puff INHALATION RT-BID 02/19/17 08/31/17 [Symbicort 160-4.5 Mcg Inhaler] Metoprolol Tartrate [Lopressor] 25 mg PO BID 02/19/17 08/31/17 Ferrous Sulfate [Feosol] 325 mg PO BID 04/29/17 08/31/17 Lisinopril [Zestril] 10 mg PO BID 04/29/17 08/31/17 Hydrochlorothiazide [Hydrodiuril] 25 mg PO HS 07/27/17 08/31/17 Insulin Aspart [NovoLOG] 10 unit SQ AC-LUNCH 07/27/17 08/31/17 Insulin Aspart [NovoLOG] 12 unit SQ AC-SUPPER 07/27/17 08/31/17 Atorvastatin [Lipitor] 20 mg PO HS 08/13/17 08/31/17 Bisoprolol [Zebeta] 5 mg PO DAILY 08/31/17 08/31/17 Magnesium Oxide [Mag-Ox] 400 mg PO BID 08/31/17 08/31/17 metFORMIN HCL [Glucophage] 1,000 mg PO BID 08/31/17 08/31/17 Previous Rx's Medication Instructions Recorded Nitroglycerin Sl Tabs [Nitrostat] 0.4 mg SUBLINGUAL Q5M PRN #25 tab 12/16/16 Ticagrelor [Brilinta] 90 mg PO BID #60 tab 08/15/17 Allergies Allergy/AdvReac Type Severity Reaction Status Date / Time No Known Allergies Allergy Verified 08/31/17 23:16 Review of Systems ROS Statement: Those systems with pertinent positive or pertinent negative responses have been documented in the HPI. ROS Other: All systems not noted in ROS Statement are negative. EKG Findings - EKG Results: EKG: interpreted by PAZ, sinus rhythm (Sinus rhythm rate 72. Interval 186 QRS of 92 QT/QTC of 426/[address]-T wave changes.) Past Medical History Past Medical History: Atrial Fibrillation, Coronary Artery Disease (CAD), Chest Pain / Angina, COPD, Diabetes Mellitus, Hyperlipidemia, Hypertension, Pneumonia , Sleep Apnea/CPAP/BIPAP Additional Past Medical History / Comment(s): USES CPAP. HX KIDNEY STONES, GOUT , CATARACTS. LASIK SX, BIPOLAR DEPRESSION. LOWER BRIDGE. History of Any Multi-Drug Resistant Organisms: None Reported Past Surgical History: Heart Catheterization With Stent, Hernia Repair, Orthopedic Surgery, Tonsillectomy Additional Past Surgical History / Comment(s): Pilonidal cyst. EXC ABDI CATARACTS. Bilateral Knee Sx. LITHOTRIPSY. COLONOSCOPY. [facility] heart cath w/1 stent, 05-21-16 had 2 more stents - total of 5 stents. another stent placed 06/26/17 Past Anesthesia/Blood Transfusion Reactions: No Reported Reaction Date of Last Stent Placement:: 06/25/2017 Past Psychological History: Bipolar, Depression Smoking Status: Former smoker Past Alcohol Use History: None Reported Past Drug Use History: None Reported - Past Family History Mother Family Medical History: Coronary Artery Disease (CAD) Father Family Medical History: Coronary Artery Disease (CAD) Additional Family Medical History / Comment(s): emphysema General Exam - General Exam Comments Initial Comments: This is a well-developed well-nourished awake alert oriented 3 male Limitations: no limitations General appearance: alert, in no apparent distress Head exam: Present: atraumatic, normocephalic, normal inspection Eye exam: Present: normal appearance, PERRL, EOMI. Absent: scleral icterus, conjunctival injection, periorbital swelling ENT exam: Present: normal exam, mucous membranes moist Neck exam: Present: normal inspection. Absent: tenderness, meningismus, lymphadenopathy Respiratory exam: Present: normal lung sounds bilaterally. Absent: respiratory distress, wheezes, rales, rhonchi, stridor Cardiovascular Exam: Present: regular rate, normal rhythm, normal heart sounds. Absent: systolic murmur, diastolic murmur, rubs, gallop, clicks GI/Abdominal exam: Present: soft, normal bowel sounds. Absent: distended, tenderness, guarding, rebound, rigid Extremities exam: Present: normal inspection, full ROM, normal capillary refill. Absent: tenderness, pedal edema, joint swelling, calf tenderness Back exam: Present: normal inspection Neurological exam: Present: alert, oriented X3, CN II-XII intact Psychiatric exam: Present: normal affect, normal mood Skin exam: Present: warm, dry, intact, normal color. Absent: rash Course Vital Signs 08/31/17 22:49 Temperature 98.2 F Pulse Rate 75 Respiratory 20 Rate Blood Pressure 169/70 O2 Sat by Pulse 93 L Oximetry - Reevaluation(s) Reevaluation #1: 09/01/17 00:31 Reevaluation patient reveals no pain at this time. Chest Pain MDM - MDM I did review the lab work and the patient no acute findings at this time. The patient will be admitted for evaluation of unstable angina. Chest x-ray has been ordered. Critical Care Time Critical Care Time: Yes Disposition Clinical Impression: Chest pain, Unstable angina pectoris Disposition: ADMITTED IP TO THIS HOSP Condition: Stable Referrals: Andrea Fierro DO [Primary Care Provider] - 1-2 days
[2017-08-31 23:21] LABS: Basophils # (A) 0.1 k/uL (0-0.2); Basophils % (A) 1 %; CH 29.4; CHCM 33.5; Eosinophils # (A) 0.3 k/uL (0-0.7); Eosinophils % (A) 4 %; HCT 34.6 % (39.0-53.0); HDW 2.99; HGB 11.2 gm/dL (13.0-17.5); Luc # (Auto) 0.26; Luc % (Auto) 4; Lymphocytes # (A) 1.3 k/uL (1.0-4.8); Lymphocytes % (A) 18 %; MCH 28.5 pg (25.0-35.0); MCHC 32.4 g/dL (31.0-37.0); Mean Platelet Volume 6.7; Monocytes # (A) 0.8 k/uL (0-1.0); Monocytes % (A) 11 %; Neutrophils # (A) 4.4 k/uL (1.3-7.7); Neutrophils % (A) 62 %; RBC 3.93 m/uL (4.30-5.90); WBC 7.1 k/uL (3.8-10.6); WBC (Perox) 7.21
[2017-08-31 23:33] LABS: Prothrombin Time 10.1 sec (9.0-12.0)
[2017-08-31 23:36] LABS: ALT 82 U/L (21-72); AST 51 U/L (17-59); Alkaline Phosphatase 137 U/L (38-126); Anion Gap 11 mmol/L; Blood Urea Nitrogen 29 mg/dL (9-20); Calcium 8.8 mg/dL (8.4-10.2); Carbon Dioxide 23 mmol/L (22-30); Chloride 98 mmol/L (98-107); Glucose 309 mg/dL (74-99); Magnesium 1.6 mg/dL (1.6-2.3); Non-African American GFR(MDRD) >60 (>60 ml/min/1.73 sqM); Potassium 4.2 mmol/L (3.5-5.1); Sodium 132 mmol/L (137-145); Total Bilirubin 0.2 mg/dL (0.2-1.3); Total Protein 6.3 g/dL (6.3-8.2)
[2017-08-31 23:45] LABS: Creatine Kinase 906 U/L (55-170)
[2017-08-31 23:59] LABS: Troponin I <0.012 ng/mL (0.000-0.034)
[2017-09-01 00:04] LABS: Creatine Kinase MB 6.5 ng/mL (0.0-2.4)
[2017-09-01] MEDS ORDERED: NITROGLYCERIN SL TABS 0.4 MG TAB SUBLINGUAL PRN (00:40)
[2017-09-01] MEDS ORDERED: HYDROcodone/APAP 7.5-325MG 1 EACH TAB PO PRN (00:44)
[2017-09-01] MEDS ORDERED: ALBUTEROL NEBULIZED 2.5 MG/3 ML INHALATION PRN (00:44)
[2017-09-01] MEDS ORDERED: SODIUM CHLORIDE 0.9% 1,000 ML IV SCH (00:45)
--- NOTE | 2017-09-01 00:52 | XR ---
EXAMINATION TYPE: XR chest 2V DATE OF EXAM: 09/01/2017 COMPARISON: 08/13/2017 HISTORY: Cough and congestion TECHNIQUE: Frontal and lateral views of the chest are obtained. FINDINGS: There is no heart failure nor confluent pneumonic infiltrate. Heart size is normal. There are chest leads. Bony thorax is intact. Costophrenic angles are clear. IMPRESSION: No active cardiopulmonary disease. There is improved aeration of the lungs compared to o ld exam.
[2017-09-01 02:04] LABS: Glucose,Whole Blood 271 mg/dL (75-99)
[2017-09-01] MEDS: INSULIN LISPRO (humaLOG) 300 UNIT/3 ML VIAL SQ SCH ×2 (04:06→05:53)
[2017-09-01 04:29] VITALS: BMI 35.8
[2017-09-01 05:42] LABS: Glucose,Whole Blood 224 mg/dL (75-99)
[2017-09-01] MEDS ORDERED: NITROGLYCERIN OINT 1 INCH/GM PACKET TOPICAL SCH (06:00)
[2017-09-01 07:05] LABS: Troponin I 0.018 ng/mL (0.000-0.034)
[2017-09-01 07:12] LABS: Creatine Kinase MB 5.8 ng/mL (0.0-2.4)
[2017-09-01] MEDS ORDERED: INSULIN LISPRO (humaLOG) 300 UNIT/3 ML VIAL SQ SCH ×3 (07:30→17:30)
[2017-09-01] MEDS ORDERED: metFORMIN 500 MG TAB PO SCH (07:30)
[2017-09-01] MEDS ORDERED: SYMBICORT 160-4.5 MCG INHALER INHALATION SCH (08:00)
--- NOTE | 2017-09-01 08:06 | P.CRDCN ---
History of Present Illness Consult date: 09/01/17 Chief complaint: Chest discomfort History of present illness: This is a pleasant 66-year-old gentleman who sees Dr. Forrest as an outpatient with a known history of coronary artery disease and prior stenting of the RCA as well as the PLV branch of the RCA presented to the hospital complaining of chest discomfort. The patient just was discharged from the hospital in August 2017 lateral a few weeks ago after he presented with a chest discomfort and at that point he underwent a heart catheterization which revealed patent stent in the proximal RCA with intermediate disease involving the LAD appeared to be unchanged compared to before. Also he underwent an echocardiogram at that point and that revealed normal LV function. The patient was in his usual state of health until yesterday when he was sitting at home and started experiencing chest discomfort, as a sharp kind of discomfort mainly on the right side of the chest was some radiation to the left side as well as to the back. The cardiac workup came in to be unremarkable including 2 sets of cardiac enzymes as well as an EKG. From the cardiovascular standpoint overview, the patient can be discharged home. I am going to add oral nitrates to the current medical treatment. We'll get the patient an appointment to see Dr. Forrest as an outpatient. Past Medical History Past Medical History: Atrial Fibrillation, Coronary Artery Disease (CAD), Chest Pain / Angina, COPD, Diabetes Mellitus, Hyperlipidemia, Hypertension, Pneumonia , Sleep Apnea/CPAP/BIPAP Additional Past Medical History / Comment(s): USES CPAP. HX KIDNEY STONES, GOUT , CATARACTS. LASIK SX, BIPOLAR DEPRESSION. LOWER BRIDGE. History of Any Multi-Drug Resistant Organisms: None Reported Past Surgical History: Heart Catheterization With Stent, Hernia Repair, Orthopedic Surgery, Tonsillectomy Additional Past Surgical History / Comment(s): Pilonidal cyst. EXC ABDI CATARACTS. Bilateral Knee Sx. LITHOTRIPSY. COLONOSCOPY. 05-15-16 at [facility] had heart cath w/1 stent, 05-21-16 had 2 more stents - total of 5 stents. another stent placed 06/26/17 Past Anesthesia/Blood Transfusion Reactions: No Reported Reaction Date of Last Stent Placement:: 06/25/2017 Past Psychological History: Bipolar, Depression Additional Psychological History / Comment(s): pt admitted to 5 past suicide attempts. pt lives at home with his common law ekaterina. Smoking Status: Former smoker Past Alcohol Use History: None Reported Additional Past Alcohol Use History / Comment(s): started smoking at age 16(1966 ) stopped at age 65() smoked, 1ppd. Past Drug Use History: None Reported - Past Family History Mother Family Medical History: Coronary Artery Disease (CAD) Father Family Medical History: Coronary Artery Disease (CAD) Additional Family Medical History / Comment(s): emphysema Medications and Allergies Home Medications Medication Instructions Recorded Confirmed Type ARIPiprazole [Abilify] 5 mg PO HS 11/03/14 08/31/17 History Citalopram Hydrobromide 40 mg PO DAILY 11/03/14 08/31/17 History [Citalopram HBr] Saxagliptin HCl [Onglyza] 5 mg PO HS 11/03/14 08/31/17 History Ascorbic Acid [Vitamin C] 500 mg PO DAILY 01/17/16 08/31/17 History Cholecalciferol [Vitamin D3] 2,000 unit PO DAILY 01/17/16 08/31/17 History Insulin Detemir [Levemir] 83 unit SQ BID 01/17/16 08/31/17 History HYDROcodone/APAP 7.5-325MG [[place] 1 tab PO Q8H PRN 07/02/16 08/31/17 History 7.5-325] [place]-3 Fatty Acids/Fish Oil [Fish 1 cap PO DAILY 07/02/16 08/31/17 History Oil 1,000 mg Softgel] traZODone HCL 150 mg PO HS 07/02/16 08/31/17 History Aspirin EC [Ecotrin Low Dose] 81 mg PO DAILY 11/20/16 08/31/17 History Colchicine 0.6 mg PO DAILY 11/20/16 08/31/17 History Insulin Aspart [NovoLOG] 10 unit SQ AC-BRKFST 11/20/16 08/31/17 History Isosorbide Mononitrate ER [Imdur] 30 mg PO HS 11/20/16 08/31/17 History Montelukast [Singulair] 10 mg PO HS 11/20/16 08/31/17 History Nitroglycerin Sl Tabs [Nitrostat] 0.4 mg SUBLINGUAL Q5M PRN #25 tab 12/16/16 Rx Albuterol Sulfate [Proventil Hfa] 2 puff INHALATION RT-Q4H PRN 02/19/17 History Budesonide/Formoterol Fumarate 2 puff INHALATION RT-BID 02/19/17 08/31/17 History [Symbicort 160-4.5 Mcg Inhaler] Metoprolol Tartrate [Lopressor] 25 mg PO BID 02/19/17 08/31/17 History Ferrous Sulfate [Feosol] 325 mg PO BID 04/29/17 08/31/17 History Lisinopril [Zestril] 10 mg PO BID 04/29/17 08/31/17 History Hydrochlorothiazide [Hydrodiuril] 25 mg PO HS 07/27/17 08/31/17 History Insulin Aspart [NovoLOG] 10 unit SQ AC-LUNCH 07/27/17 08/31/17 History Insulin Aspart [NovoLOG] 12 unit SQ AC-SUPPER 07/27/17 08/31/17 History Atorvastatin [Lipitor] 20 mg PO HS 08/13/17 08/31/17 History Ticagrelor [Brilinta] 90 mg PO BID #60 tab 08/15/17 08/31/17 Rx Bisoprolol [Zebeta] 5 mg PO DAILY 08/31/17 08/31/17 History Magnesium Oxide [Mag-Ox] 400 mg PO BID 08/31/17 08/31/17 History metFORMIN HCL [Glucophage] 1,000 mg PO BID 08/31/17 08/31/17 History Allergies Allergy/AdvReac Type Severity Reaction Status Date / Time No Known Allergies Allergy Verified 08/31/17 23:16 Physical Exam Vitals: Vital Signs Temp Pulse Pulse Resp BP BP Pulse Ox 09/01/17 02:58 18 09/01/17 02:00 97.8 F 76 18 130/72 94 L 09/01/17 01:01 98.0 F 69 16 156/65 95 08/31/17 22:49 98.2 F 75 20 169/70 93 L Intake and Output 08/31/17 09/01/17 09/01/17 22:59 06:59 14:59 Other: # Voids 1 Weight 110.223 kg 113.3 kg - Constitutional General appearance: no acute distress - Respiratory Respiratory: bilateral: CTA - Cardiovascular Rhythm: regular Heart sounds: normal: S1, S2 Results 08/31/17 23:10 10/30/17 23:10 Cardiac Enzymes 08/31/17 08/31/17 09/01/17 Range/Units 23:10 23:10 04:52 AST 51 (17-59) U/L CK-MB (CK-2) 6.5 H* 5.8 H* (0.0-2.4) ng/mL Troponin I <0.012 0.018 (0.000-0.034) ng/mL Coagulation 08/31/17 Range/Units 23:10 PT 10.1 (9.0-12.0) sec APTT 24.0 (22.0-30.0) sec CBC 08/31/17 Range/Units 23:10 WBC 7.1 (3.8-10.6) k/uL RBC 3.93 L (4.30-5.90) m/uL Hgb 11.2 L (13.0-17.5) gm/dL Hct 34.6 L (39.0-53.0) % Plt Count 296 (150-450) k/uL Comprehensive Metabolic Panel 08/31/17 Range/Units 23:10 Sodium 132 L (137-145) mmol/L Potassium 4.2 (3.5-5.1) mmol/L Chloride 98 (98-107) mmol/L Carbon Dioxide 23 (22-30) mmol/L BUN 29 H (9-20) mg/dL Creatinine 1.10 (0.66-1.25) mg/dL Glucose 309 H (74-99) mg/dL Calcium 8.8 (8.4-10.2) mg/dL AST 51 (17-59) U/L ALT 82 H (21-72) U/L Alkaline Phosphatase 137 H (38-126) U/L Total Protein 6.3 (6.3-8.2) g/dL Albumin 3.8 (3.5-5.0) g/dL Current Medications Generic Name Dose Route Start Last Admin Trade Name Freq PRN Reason Stop Dose Admin Hydrocodone Bitart/Acetaminophen 1 each 09/01/17 00:44 [place] 7.5-325 PO Q8H PRN Pain Albuterol Sulfate 2 mg 09/01/17 00:44 Ventolin Nebulized INHALATION RT-Q4H PRN Shortness Of Breath Aripiprazole 5 mg 09/01/17 21:00 Abilify PO HS [facility] Ascorbic Acid 500 mg 09/01/17 09:00 Vitamin C PO DAILY [facility] Aspirin 81 mg 09/02/17 09:00 Aspirin PO DAILY [facility] Atorvastatin Calcium 20 mg 09/01/17 21:00 Lipitor PO HS [facility] Bisoprolol Fumarate 5 mg 09/01/17 09:00 Zebeta PO DAILY [facility] Budesonide/Formoterol Fumarate 2 puff 09/01/17 08:00 09/01/17 08:03 Symbicort 160-4.5 Mcg Inhaler INHALATION 2 puff RT-BID [facility] Administration Cholecalciferol 2,000 unit 09/01/17 09:00 Vitamin D3 PO DAILY [facility] Citalopram Hydrobromide 40 mg 09/01/17 09:00 Celexa PO DAILY [facility] Colchicine 0.6 mg 09/01/17 09:00 Colcrys PO DAILY [facility] Ferrous Sulfate 325 mg 09/01/17 09:00 Feosol PO BID [facility] Hydrochlorothiazide 25 mg 09/01/17 21:00 Hydrodiuril PO HS [facility] Sodium Chloride 1,000 mls @ 20 mls/hr 09/01/17 00:45 09/01/17 00:58 Saline 0.9% IV 20 mls/hr .Q24H [facility] Administration Insulin Detemir 83 unit 09/01/17 09:00 Levemir SQ BID [facility] Insulin Human Lispro 12 unit 09/01/17 17:30 Humalog SQ AC-SUPPER [facility] Insulin Human Lispro 10 unit 09/01/17 12:30 Humalog SQ AC-LUNCH [facility] Insulin Human Lispro 10 unit 09/01/17 07:30 Humalog SQ AC-BRKFST [facility] Insulin Human Lispro 0 unit 09/01/17 02:10 09/01/17 05:53 Humalog SQ 4 unit ACHS [facility] Administration Protocol Linagliptin 5 mg 09/01/17 21:00 Tradjenta PO HS [facility] Lisinopril 10 mg 09/01/17 09:00 Zestril PO BID [facility] Magnesium Oxide 400 mg 09/01/17 09:00 Mag-Ox PO BID [facility] Metformin HCl 1,000 mg 09/01/17 07:30 Glucophage PO AC-BID [facility] Metoprolol Tartrate 25 mg 09/01/17 09:00 Lopressor PO BID [facility] Montelukast Sodium 10 mg 09/01/17 21:00 Singulair PO HS [facility] Nitroglycerin 1 inch 09/01/17 06:00 09/01/17 05:53 Nitro-Bid Oint TOPICAL 1 inch Q6HR [facility] Administration Nitroglycerin 0.4 mg 09/01/17 00:40 Nitrostat SUBLINGUAL Q5M PRN Chest Pain Ticagrelor 90 mg 09/01/17 09:00 Brilinta PO BID [facility] Trazodone HCl 150 mg 09/01/17 21:00 Desyrel PO HS [facility] Intake and Output 08/31/17 09/01/17 09/01/17 22:59 06:59 14:59 Other: # Voids 1 Weight 110.223 kg 113.3 kg 08/31/17 23:10 08/31/17 23:10 Assessment and Plan Assessment: This is a 66-year-old gentleman was known CAD and prior stenting of the RCA with the most recent heart catheterization few weeks ago revealing patent stents in the RCA and intermediate disease in the LAD and change compared to before presented to the hospital complaining with a chest discomfort. The cardiac workup this time came in to be unremarkable and the patient was ruled out for acute coronary event. From the cardiovascular standpoint of view, she can be discharged home. I'm going to add oral nitrates the current medical treatment.
[2017-09-01 08:16] VITALS: BP 149/86; PULSE 73; RESP 16; TEMP 97.6
[2017-09-01] MEDS ORDERED: CHOLECALCIFEROL 1,000 UNIT TAB PO SCH (09:00)
[2017-09-01] MEDS ORDERED: MAGNESIUM OXIDE 400 MG TAB PO SCH (09:00)
[2017-09-01] MEDS ORDERED: LISINOPRIL 10 MG TAB PO SCH (09:00)
[2017-09-01] MEDS ORDERED: TICAGRELOR 90 MG TAB PO SCH (09:00)
[2017-09-01] MEDS ORDERED: METOPROLOL TARTRATE 25 MG TAB PO SCH (09:00)
[2017-09-01] MEDS ORDERED: CITALOPRAM HYDROBROMIDE 20 MG TAB PO SCH (09:00)
[2017-09-01] MEDS ORDERED: INSULIN DETEMIR 100 UNIT/ML 10 ML VIAL SQ SCH (09:00)
[2017-09-01] MEDS ORDERED: NON-FORMULARY DRUG (Omega-3 Fatty Acids/Fish Oil [Fish Oil 1,000 Mg Softgel] 1 CAP) PO SCH (09:00)
[2017-09-01] MEDS ORDERED: FERROUS SULFATE 325 MG TAB PO SCH (09:00)
[2017-09-01] MEDS ORDERED: ASCORBIC ACID 500 MG TAB PO SCH (09:00)
[2017-09-01] MEDS ORDERED: COLCHICINE 0.6 MG TAB PO SCH (09:00)
[2017-09-01] MEDS ORDERED: BISOPROLOL 5 MG TAB PO SCH (09:00)
[2017-09-01] MEDS ORDERED: ISOSORBIDE MONONITRATE ER 30 MG TAB.ER.24H PO SCH ×2 (09:00→21:00)
[2017-09-01] MEDS ORDERED: Magnesium Replacement Protocol 1 EACH MISC MISCELLANE PRN (10:25)
[2017-09-01] MEDS ORDERED: MAGNESIUM SULFATE-D5W PMX 1 GM in DEXTROSE/WATER 1 100ML.BAG IVPB SCH (10:45)
[2017-09-01 11:37] LABS: Glucose,Whole Blood 360 mg/dL (75-99)
[2017-09-01 12:32] LABS: Troponin I 0.012 ng/mL (0.000-0.034)
--- NOTE | 2017-09-01 18:37 | HP ---
HISTORY AND PHYSICAL HISTORY AND PHYSICAL AND DISCHARGE SUMMARY: CHIEF COMPLAINT: Chest discomfort. HISTORY: This 66-year-old gentleman with a past history of multiple medical problems was admitted to [facility] with complaints of chest pain. The patient had a previous stenting of the RCA. Cardiology saw the patient and apparently changed the dose to Imdur and recommended discharge home and the patient left the hospital. Please refer to details of cardiology consultations for further information. Otherwise , lab- [place], the CK was elevated, but troponins are normal. FINAL DIAGNOSES: 1. Chest pain, unstable angina. 2. History of coronary artery disease with stent. 3. Atrial ablation. 4. Chronic obstructive pulmonary disease. 5. Diabetes mellitus type 2. 6. Hyperlipidemia. 7. Hypertension. 8. History of pneumonia. Discharge advice and medications are as follows: Medications are: 1. Albuterol 2 puffs q.i.d. p.r.n. 2. Abilify 5 mg q.h.s. 3. Vitamin C 500 mg p.o. daily. 4. Aspirin 81 mg daily. 5. Lipitor 20 mg q.h.s. 7. Symbicort 2 puffs b.i.d. 8. Vitamin D3 2000 daily. 9. Celexa 40 mg p.o. daily. 10.Colchicine 0.6 daily. 11.Iron sulfate 320 mg b.i.d. 12.HydroDIURIL 25 mg q.h.s. 13.[place] 7.5 q.8h p.r.n. 14.NovoLog scale 10 units at breakfast, 10 units at lunch and 10 at supper. 15.Levemir 85 units subcu b.i.d. 16.Imdur 30 mg q.h.s. 17.Zestril 10 mg p.o. b.i.d. 18.Magnesium oxide 400 mg b.i.d. 19.Glucophage 1000 mg b.i.d. 20.Lopressor 25 mg b.i.d. 21.Singular 10 mg q.h.s. 22.Nitro 0.4 sublingual p.r.n. 23.[place]-3 fatty acids. 24.Onglyza 5 mg q.h.s. 25.Brilinta 90 mg p.o. b.i.d. 26.Trazodone 50 mg q.h.s. MMODL / IJN: [id number] / MTDAz
[2017-09-01] MEDS ORDERED: ATORVASTATIN 20 MG TAB PO SCH (21:00)
[2017-09-01] MEDS ORDERED: LINAGLIPTIN 5 MG TABLET PO SCH (21:00)
[2017-09-01] MEDS ORDERED: HYDROCHLOROTHIAZIDE 25 MG TAB PO SCH (21:00)
[2017-09-01] MEDS ORDERED: ARIPiprazole 5 MG TAB PO SCH (21:00)
[2017-09-01] MEDS ORDERED: traZODone HCL 50 MG TAB PO SCH (21:00)
[2017-09-01] MEDS ORDERED: MONTELUKAST 10 MG TAB PO SCH (21:00)
[2017-09-02 08:57] LABS: Creatine Kinase MB 5.7 ng/mL (0.0-2.4)
[2017-09-02] MEDS ORDERED: ASPIRIN 81 MG PO SCH (09:00)
== END 2017-09-01 11:38 | disposition home or self-care (01) ==
LOC: EC 22:48 → 6SEL 09-01 00:41
PROVIDERS: ADMIT Hospitalist; ATTEND Hospitalist
DX: I25.110 Atherosclerotic heart disease of native coronary artery with unstable angina pectoris (principal); I48.91 Unspecified atrial fibrillation; J44.9 Chronic obstructive pulmonary disease, unspecified; E11.9 Type 2 diabetes mellitus without complications; E78.5 Hyperlipidemia, unspecified; I10 Essential (primary) hypertension; G47.30 Sleep apnea, unspecified; Z99.89 Dependence on other enabling machines and devices; M10.9 Gout, unspecified; F31.9 Bipolar disorder, unspecified; Z79.899 Other long term (current) drug therapy; Z79.4 Long term (current) use of insulin; Z79.82 Long term (current) use of aspirin; Z79.51 Long term (current) use of inhaled steroids; Z79.84 Long term (current) use of oral hypoglycemic drugs; Z87.01 Personal history of pneumonia (recurrent); Z95.5 Presence of coronary angioplasty implant and graft; Z87.891 Personal history of nicotine dependence; Z91.5 Personal history of self-harm; Z87.442 Personal history of urinary calculi
CPT/HCPCS: 99291; 36415; 94640 ×2; 93005; 80053; 82550 ×2; 82553 ×2; 83735; 84484 ×2; 85025; 85610; 85730; 71020; G0378

== ENCOUNTER 2017-11-06 22:43 | Observation (INO) | payer OTHER, MEDICARE ==
[2017-11-06 22:57] LABS: Glucose,Whole Blood 160 mg/dL (75-99)
[2017-11-06] MEDS ORDERED: SODIUM CHLORIDE 0.9% 1,000 ML IV STA (22:59)
[2017-11-06] MEDS ORDERED: METOCLOPRAMIDE 5 MG/ML 2 ML VIAL IVP STA (23:00)
--- NOTE | 2017-11-06 23:02 | ED ---
General Adult HPI - General Chief complaint: Dizziness Stated complaint: Light-headed Time Seen by Provider: 11/06/17 22:47 Source: patient, EMS, RN notes reviewed Mode of arrival: EMS Limitations: no limitations - History of Present Illness Initial comments: Patient is a pleasant 67-year-old male presenting to the emergency department with lightheadedness. Patient states he was playing on his computer when he became lightheaded and nauseated. Patient states symptoms have improved however not completely resolved. No spinning sensation. No confusion. No weakness. Patient has had some dizziness in the past. No dyspnea. Patient did not lose consciousness. - Related Data Home Medications Medication Instructions Recorded Confirmed ARIPiprazole [Abilify] 5 mg PO HS 11/03/14 11/06/17 Citalopram Hydrobromide 40 mg PO DAILY 11/03/14 11/06/17 [Citalopram HBr] Ascorbic Acid [Vitamin C] 500 mg PO DAILY 01/17/16 11/06/17 Cholecalciferol [Vitamin D3] 2,000 unit PO DAILY 01/17/16 11/06/17 HYDROcodone/APAP 7.5-325MG [[place] 1 tab PO Q8H PRN 07/02/16 11/06/17 7.5-325] [place]-3 Fatty Acids/Fish Oil [Fish 1 cap PO DAILY 07/02/16 11/06/17 Oil 1,000 mg Softgel] traZODone HCL 150 mg PO HS 07/02/16 11/06/17 Aspirin EC [Ecotrin Low Dose] 81 mg PO DAILY 11/20/16 11/06/17 Colchicine 0.6 mg PO DAILY 11/20/16 11/06/17 Insulin Aspart [NovoLOG 12 unit SQ AC-BRKFST 11/20/16 11/06/17 (formulary)] Montelukast [Singulair] 10 mg PO HS 11/20/16 11/06/17 Albuterol Sulfate [Proventil Hfa] 2 puff INHALATION RT-Q4H PRN 02/19/17 11/06/17 Budesonide/Formoterol Fumarate 2 puff INHALATION RT-BID 02/19/17 11/06/17 [Symbicort 160-4.5 Mcg Inhaler] Metoprolol Tartrate [Lopressor] 25 mg PO BID 02/19/17 11/06/17 Ferrous Sulfate [Feosol] 325 mg PO BID 04/29/17 11/06/17 Lisinopril [Zestril] 10 mg PO BID 04/29/17 11/06/17 Hydrochlorothiazide [Hydrodiuril] 25 mg PO HS 07/27/17 11/06/17 Insulin Aspart [NovoLOG 12 unit SQ AC-LUNCH 07/27/17 11/06/17 (formulary)] Insulin Aspart [NovoLOG 12 unit SQ AC-SUPPER 07/27/17 11/06/17 (formulary)] Atorvastatin [Lipitor] 20 mg PO HS 08/13/17 11/06/17 Bisoprolol [Zebeta] 5 mg PO DAILY 08/31/17 11/06/17 Magnesium Oxide [Mag-Ox] 400 mg PO BID 08/31/17 11/06/17 Insulin Detemir [Levemir] 83 unit SQ BID 11/06/17 11/06/17 Saxagliptin HCl [Onglyza] 5 mg PO DAILY 11/06/17 11/06/17 metFORMIN HCL 1,000 mg PO BID 11/06/17 11/06/17 Previous Rx's Medication Instructions Recorded Nitroglycerin Sl Tabs [Nitrostat] 0.4 mg SUBLINGUAL Q5M PRN #25 tab 12/16/16 Ticagrelor [Brilinta] 90 mg PO BID #60 tab 08/15/17 Isosorbide Mononitrate ER [Imdur] 30 mg PO HS #30 tab.er.24h 09/01/17 Allergies Allergy/AdvReac Type Severity Reaction Status Date / Time No Known Allergies Allergy Verified 11/06/17 23:00 Review of Systems ROS Statement: Those systems with pertinent positive or pertinent negative responses have been documented in the HPI. ROS Other: All systems not noted in ROS Statement are negative. Constitutional: Denies: fever Eyes: Denies: eye pain ENT: Denies: ear pain Respiratory: Denies: cough, dyspnea Cardiovascular: Denies: chest pain Endocrine: Denies: fatigue Gastrointestinal: Reports: nausea. Denies: vomiting Genitourinary: Denies: dysuria Musculoskeletal: Denies: back pain Skin: Denies: rash Neurological: Denies: headache, weakness, confusion Past Medical History Past Medical History: Atrial Fibrillation, Coronary Artery Disease (CAD), Chest Pain / Angina, COPD, Diabetes Mellitus, Hyperlipidemia, Hypertension, Pneumonia , Sleep Apnea/CPAP/BIPAP Additional Past Medical History / Comment(s): USES CPAP. HX KIDNEY STONES, GOUT , CATARACTS. LASIK SX, BIPOLAR DEPRESSION. LOWER BRIDGE. History of Any Multi-Drug Resistant Organisms: None Reported Past Surgical History: Heart Catheterization With Stent, Hernia Repair, Orthopedic Surgery, Tonsillectomy Additional Past Surgical History / Comment(s): Pilonidal cyst. EXC ABDI CATARACTS. Bilateral Knee Sx. LITHOTRIPSY. COLONOSCOPY. 05-15-16 at [facility] had heart cath w/1 stent, 05-21-16 had 2 more stents - total of 5 stents. another stent placed 06/26/17 Past Anesthesia/Blood Transfusion Reactions: No Reported Reaction Date of Last Stent Placement:: 06/25/2017 Past Psychological History: Bipolar, Depression Smoking Status: Former smoker Past Alcohol Use History: None Reported Past Drug Use History: None Reported - Past Family History Mother Family Medical History: Coronary Artery Disease (CAD) Father Family Medical History: Coronary Artery Disease (CAD) Additional Family Medical History / Comment(s): emphysema General Exam Limitations: no limitations General appearance: alert, in no apparent distress Head exam: Present: atraumatic Eye exam: Present: normal appearance, PERRL ENT exam: Present: normal oropharynx Neck exam: Present: normal inspection Respiratory exam: Present: normal lung sounds bilaterally Cardiovascular Exam: Present: regular rate, normal rhythm GI/Abdominal exam: Present: soft. Absent: tenderness Extremities exam: Present: normal inspection. Absent: pedal edema, calf tenderness Neurological exam: Present: alert, oriented X3, CN II-XII intact. Absent: motor sensory deficit Expanded Patient oriented to: Present: person, place, time Speech: Present: fluid speech Cranial nerves: EOM's Intact: Normal, Facial Sensation: Normal Cerebellar function: Finger to Nose: Normal Sensory exam: Upper Extremity Light Touch: Normal, Lower Extremity Light Touch: Normal Motor strength exam: RUE: 5, LUE: 5, RLE: 5, LLE: 5 Eye Response: (4) open spontaneously Motor Response: (6) obeys commands Verbal Response: (5) oriented Psychiatric exam: Present: normal affect, normal mood Skin exam: Present: normal color Course Vital Signs 11/06/17 11/06/17 22:45 23:27 Temperature 97 F L Pulse Rate 74 73 Respiratory 18 18 Rate Blood Pressure 122/85 103/59 O2 Sat by Pulse 91 L 97 Oximetry EKG Findings - EKG Comments: EKG Findings:: Sinus rhythm 69. SC 164. QRS 90. QT 400. QTc 420. Normal axis. Normal QRS. No acute ST change. Medical Decision Making - Medical Decision Making Patient reevaluated and resting comfortably in bed. Patient symptom-free at this time. is now present and provides further history. She states patient became unresponsive for approximately 1 minute. She question if patient was breathing or not. She did blow in his face several times and patient did start responding again. No history of similar symptoms previously. Patient and updated on results and plan. Case was discussed in detail with Dr. Mcmanus, who will admit for Dr. Jessie Joaquin. - Lab Data Result diagrams: 11/06/17 22:58 11/06/17 22:58 Lab Results 11/06/17 11/06/17 11/06/17 Range/Units 22:55 22:58 22:58 WBC 10.2 (3.8-10.6) k/uL RBC 4.63 (4.30-5.90) m/uL Hgb 13.3 (13.0-17.5) gm/dL Hct 40.1 (39.0-53.0) % MCV 86.5 (80.0-100.0) fL MCH 28.7 (25.0-35.0) pg MCHC 33.1 (31.0-37.0) g/dL RDW 15.2 (11.5-15.5) % Plt Count 277 (150-450) k/uL Neutrophils % 73 % Lymphocytes % 15 % Monocytes % 7 % Eosinophils % 2 % Basophils % 1 % Neutrophils # 7.5 (1.3-7.7) k/uL Lymphocytes # 1.6 (1.0-4.8) k/uL Monocytes # 0.8 (0-1.0) k/uL Eosinophils # 0.2 (0-0.7) k/uL Basophils # 0.1 (0-0.2) k/uL Sodium 137 (137-145) mmol/L Potassium 3.9 (3.5-5.1) mmol/L Chloride 98 (98-107) mmol/L Carbon Dioxide 26 (22-30) mmol/L Anion Gap 13 mmol/L BUN 34 H (9-20) mg/dL Creatinine 1.20 (0.66-1.25) mg/dL Est GFR (MDRD) Af Amer >60 (>60 ml/min/1.73 sqM) Est GFR (MDRD) Non-Af >60 (>60 ml/min/1.73 sqM) Glucose 151 H (74-99) mg/dL POC Glucose (mg/dL) 160 H (75-99) mg/dL POC Glu [employer] ID Siomara Thao Calcium 10.0 (8.4-10.2) mg/dL Total Bilirubin 0.3 (0.2-1.3) mg/dL AST 69 H (17-59) U/L ALT 97 H (21-72) U/L Alkaline Phosphatase 94 (38-126) U/L Troponin I (0.000-0.034) ng/mL Total Protein 6.8 (6.3-8.2) g/dL Albumin 4.1 (3.5-5.0) g/dL 11/06/17 Range/Units 22:58 WBC (3.8-10.6) k/uL RBC (4.30-5.90) m/uL Hgb (13.0-17.5) gm/dL Hct (39.0-53.0) % MCV (80.0-100.0) fL MCH (25.0-35.0) pg MCHC (31.0-37.0) g/dL RDW (11.5-15.5) % Plt Count (150-450) k/uL Neutrophils % % Lymphocytes % % Monocytes % % Eosinophils % % Basophils % % Neutrophils # (1.3-7.7) k/uL Lymphocytes # (1.0-4.8) k/uL Monocytes # (0-1.0) k/uL Eosinophils # (0-0.7) k/uL Basophils # (0-0.2) k/uL Sodium (137-145) mmol/L Potassium (3.5-5.1) mmol/L Chloride (98-107) mmol/L Carbon Dioxide (22-30) mmol/L Anion Gap mmol/L BUN (9-20) mg/dL Creatinine (0.66-1.25) mg/dL Est GFR (MDRD) Af Amer (>60 ml/min/1.73 sqM) Est GFR (MDRD) Non-Af (>60 ml/min/1.73 sqM) Glucose (74-99) mg/dL POC Glucose (mg/dL) (75-99) mg/dL POC Glu [employer] ID Calcium (8.4-10.2) mg/dL Total Bilirubin (0.2-1.3) mg/dL AST (17-59) U/L ALT (21-72) U/L Alkaline Phosphatase (38-126) U/L Troponin I 0.019 (0.000-0.034) ng/mL Total Protein (6.3-8.2) g/dL Albumin (3.5-5.0) g/dL - Radiology Data Radiology results: report reviewed (Computed tomography scan the brain shows no acute process.), image reviewed (Chest x-ray shows no acute process) Disposition Clinical Impression: Syncope Disposition: ADMITTED IP TO THIS HOSP Referrals: Andrea Fierro DO [Primary Care Provider] - 1-2 days Decision Time: 23:51
[2017-11-06 23:10] LABS: Basophils # (A) 0.1 k/uL (0-0.2); Basophils % (A) 1 %; Eosinophils # (A) 0.2 k/uL (0-0.7); Eosinophils % (A) 2 %; HCT 40.1 % (39.0-53.0); HGB 13.3 gm/dL (13.0-17.5); Lymphocytes # (A) 1.6 k/uL (1.0-4.8); Lymphocytes % (A) 15 %; MCH 28.7 pg (25.0-35.0); MCHC 33.1 g/dL (31.0-37.0); MCV 86.5 fL (80.0-100.0); Mean Platelet Volume 7.1; Monocytes # (A) 0.8 k/uL (0-1.0); Monocytes % (A) 7 %; Neutrophils # (A) 7.5 k/uL (1.3-7.7); Neutrophils % (A) 73 %; Platelet Count 277 k/uL (150-450); RBC 4.63 m/uL (4.30-5.90); RDW 15.2 % (11.5-15.5); WBC 10.2 k/uL (3.8-10.6)
[2017-11-06 23:18] LABS: ALT 97 U/L (21-72); AST 69 U/L (17-59); Albumin 4.1 g/dL (3.5-5.0); Alkaline Phosphatase 94 U/L (38-126); Anion Gap 13 mmol/L; Blood Urea Nitrogen 34 mg/dL (9-20); Carbon Dioxide 26 mmol/L (22-30); Chloride 98 mmol/L (98-107); Glucose 151 mg/dL (74-99); Potassium 3.9 mmol/L (3.5-5.1); Sodium 137 mmol/L (137-145); Total Bilirubin 0.3 mg/dL (0.2-1.3); Total Protein 6.8 g/dL (6.3-8.2)
[2017-11-06] MEDS ORDERED: SODIUM CHLORIDE 0.9% 500 ML IV STA (23:25)
--- NOTE | 2017-11-06 23:34 | CT ---
EXAMINATION TYPE: CT brain wo con DATE OF EXAM: 11/06/2017 COMPARISON: NONE HISTORY: vertigo CT DLP: 1030.50 mGycm Automated exposure control for dose reduction was used. FINDINGS: Ventricles have normal size. There is no mass effect nor midline shift. There is no sign of intracran ial hemorrhage. The calvarium is intact. IMPRESSION: NEGATIVE CT SCAN OF THE BRAIN.
--- NOTE | 2017-11-06 23:36 | XR ---
EXAMINATION TYPE: XR chest 2V DATE OF EXAM: 11/06/2017 COMPARISON: 09/01/2017 HISTORY: Vertigo TECHNIQUE: Frontal and lateral views of the chest are obtained. FINDINGS: Heart and mediastinum are normal. Lungs are clear. Diaphragm is normal. There are chest le ads. Bony thorax is intact. IMPRESSION: No active cardiopulmonary disease. There is clearing of mild left perihilar linear densi ty compared to old exam.
[2017-11-06] MEDS ORDERED: SODIUM CHLORIDE 0.9% 1,000 ML IV SCH (23:45)
[2017-11-06] MEDS ORDERED: NALOXONE 0.4 MG/ML 1 ML VIAL IV PRN (23:51)
[2017-11-07 04:15] LABS: Glucose,Whole Blood 429 mg/dL (75-99)
[2017-11-07 04:15] LABS: Glucose,Whole Blood 455 mg/dL (75-99)
[2017-11-07 04:34] LABS: Troponin I 0.025 ng/mL (0.000-0.034)
[2017-11-07 04:36] LABS: Creatine Kinase MB 3.8 ng/mL (0.0-2.4)
[2017-11-07] MEDS: INSULIN ASPART 100 UNIT/ML 1 ML 10 ML VIAL SQ SCH ×3 (05:37→12:36)
[2017-11-07 07:00] LABS: Glucose,Whole Blood 311 mg/dL (75-99)
[2017-11-07] MEDS ORDERED: ALBUTEROL NEBULIZED 2.5 MG/3 ML INHALATION PRN (07:57)
[2017-11-07] MEDS ORDERED: SYMBICORT 160-4.5 MCG INHALER INHALATION SCH (08:00)
[2017-11-07 08:04] LABS: Glucose,Whole Blood 299 mg/dL (75-99)
[2017-11-07] MEDS ORDERED: LISINOPRIL 10 MG TAB PO SCH (09:00)
[2017-11-07] MEDS ORDERED: ASCORBIC ACID 500 MG TAB PO SCH (09:00)
[2017-11-07] MEDS ORDERED: MAGNESIUM OXIDE 400 MG TAB PO SCH (09:00)
[2017-11-07] MEDS ORDERED: NON-FORMULARY DRUG (Omega-3 Fatty Acids/Fish Oil [Fish Oil 1,000 Mg Softgel] 1 CAP) PO SCH (09:00)
[2017-11-07] MEDS ORDERED: CHOLECALCIFEROL 1,000 UNIT TAB PO SCH (09:00)
[2017-11-07] MEDS ORDERED: TICAGRELOR 90 MG TAB PO SCH (09:00)
[2017-11-07] MEDS ORDERED: ASPIRIN 81 MG PO SCH (09:00)
[2017-11-07] MEDS ORDERED: METOPROLOL TARTRATE 25 MG TAB PO SCH (09:00)
[2017-11-07] MEDS ORDERED: CITALOPRAM HYDROBROMIDE 20 MG TAB PO SCH (09:00)
[2017-11-07] MEDS ORDERED: LINAGLIPTIN 5 MG TABLET PO SCH (09:00)
--- NOTE | 2017-11-07 09:53 | CONS ---
CONSULTATION Mr. Rudolph is a 67-year-old male with a known history of coronary disease, history of hypertension, hyperlipidemia, diabetes mellitus, who presented yesterday to emergency room with symptoms of syncope. He was sitting on the computer working when he became dizzy and nauseated and there was a question of a syncopal episode according to him, although his was present, it did not appear to last long time. He did not have any chest discomfort associated with it. He had some palpitation prior to that. The patient has no prior history of malignant arrhythmia. He has underwent percutaneous revascularization in the past and has underwent repeat cardiac catheterization in August 2017 and at that time, there was no evidence of significant progression of disease. His left ventricular systolic function was normal. The patient has not had any further symptoms of chest pain. His breathing has been stable. He has occasional dizziness, but has been stable. He has rare palpitations. Rare peripheral edema. No PND and no orthopnea. His coronary risk factors are remarkable for the history of hypertension, hyperlipidemia, diabetes mellitus. He is a nonsmoker. MEDICATION: 1. Trazodone. 2. Brilinta 90 mg twice a day. 3. Onglyza. 4. Singulair 10 mg daily. 5. Metoprolol tartrate 25 mg twice a day. 6. Lisinopril 10 mg twice a day. 7. Isosorbide mononitrate 30 mg daily. 8. Insulin. 9. Citalopram. 10.Bisoprolol 5 mg daily. 11.Lipitor 20 mg daily. 12.Aspirin once a day. 13.Albuterol. REVIEW OF SYSTEMS: RESPIRATORY system: He has no recent wheezing. No cough. No history of obstructive lung disease. GI system: No recent GI bleeding. He felt mildly nauseated yesterday. system: No dysuria or hematuria. Nervous system: No stroke or seizure. PHYSICAL EXAMINATION: 67-year-old male, alert, oriented, in no apparent distress. Blood pressure running in the 110s to 150's with a heart in 90s. HEAD: Normocephalic. Eyes sclerae anicteric. Neck good carotid upstroke. No bruit. No jugular distention. LUNGS: Clear to auscultation. HEART: Regular rate and rhythm. S1, S2. No S3. No rub. ABDOMEN: Soft, nontender. Positive bowel sounds. No megaly. EXTREMITIES: No edema. Intact distal pulses. LAB DATA: EKG sinus mechanism, rate 69 with occasional PACs. On the monitor, there is no evidence of significant arrhythmia. Troponin of 0.019 and 0.025, glucose 151 and 453, BUN and creatinine of 34 and 1.2, hemoglobin of 13.3, white blood cell of 10.2. CT scan of the head showed no acute bleeding and chest x-ray shows no evidence of infiltrate. IMPRESSION: 1. Possible syncopal episode could be vasovagal. No clear evidence to suggest malignant arrhythmia. 2. History of coronary disease, stable. 3. History of hypertension. 4. Hyperlipidemia. 5. Diabetes mellitus. RECOMMENDATION: From the cardiac standpoint, the patient is stable. I would not recommend any further cardiac workup at this time. I would expect he should be able to be discharged home soon and he will followed as an outpatient. Thank you for this consult. We will follow with you. VANE / VERNA: [id number] /
[2017-11-07 11:14] VITALS: BP 154/75; PULSE 89; RESP 16; TEMP 98.7
[2017-11-07 11:42] LABS: Troponin I 0.018 ng/mL (0.000-0.034)
[2017-11-07 11:43] LABS: Creatine Kinase MB 3.1 ng/mL (0.0-2.4)
[2017-11-07 12:14] LABS: Glucose,Whole Blood 282 mg/dL (75-99)
[2017-11-07] MEDS ORDERED: HYDROCHLOROTHIAZIDE 25 MG TAB PO SCH (21:00)
[2017-11-07] MEDS ORDERED: ISOSORBIDE MONONITRATE ER 30 MG TAB.ER.24H PO SCH (21:00)
[2017-11-07] MEDS ORDERED: traZODone HCL 50 MG TAB PO SCH (21:00)
[2017-11-07] MEDS ORDERED: ARIPiprazole 5 MG TAB PO SCH (21:00)
[2017-11-07] MEDS ORDERED: MONTELUKAST 10 MG TAB PO SCH (21:00)
[2017-11-07] MEDS ORDERED: ATORVASTATIN 20 MG TAB PO SCH (21:00)
--- NOTE | 2017-11-08 08:48 | HP ---
HISTORY AND PHYSICAL DATE OF SERVICE: 11/07/2017 HISTORY AND PHYSICAL AND DISCHARGE SUMMARY: CHIEF COMPLAINT: Dizziness and syncope. HISTORY OF PRESENT ILLNESS: This 67-year-old gentleman with a past medical history of multiple medical problems including history of atrial fibrillation, CAD, COPD, diabetes, hypertension, hyperlipidemia, sleep apnea, being followed by Dr. Fierro in the outpatient setting apparently sitting in front of his computer and the patient felt lightheaded and nauseated. Subsequently patient passed out for a brief period. The patient passed out and the patient was staring according to the . The patient taken to [facility] and admitted for evaluation and treatment. There is no history of fever. No chest pain, palpitation. No history of headache or any seizures at this time. PAST MEDICAL HISTORY: Atrial fibrillation, COPD, diabetes, hypertension, hyperlipidemia, pneumonia. MEDICATIONS: Prior to admission home medications are noted include: 1. Trazodone 150 mg q.h.s. 2. Brilinta 90 mg b.i.d. 3. Onglyza 5 mg b.i.d. 4. Fish oil. 5. Nitrostat. 6. Singulair 10 mg daily. 7. Lopressor 25 mg b.i.d. 8. Magnesium oxide 80 mg t.i.d. 9. Zestril 10 mg b.i.d. 10.Imdur 30 mg. 11.Levemir 83 units subcu b.i.d. and 12 units t.i.d. with meals that is NovoLog. 12.HydroDIURIL 25 mg q.h.s. 13.[place] 7.5 q.8h p.r.n. 14.Iron sulfate 320 mg b.i.d. 15.Colchicine 0.6 daily. 16.Celexa 40 mg. 17.Vitamin D3 2000 daily. 18.Symbicort 160/4.5 2 puffs b.i.d. 19.Zebeta 5 mg. 20.Lipitor 80 mg q.h.s. 21.Ecotrin 81 mg. 22.Vitamin C 500 mg. 23.Ventolin 2 puffs q.4h p.r.n. 24.Abilify 5 mg q.h.s. ALLERGIES: None. FAMILY HISTORY: History of coronary disease, emphysema in the family. SOCIAL HISTORY: Previous history of smoking. No history of current smoking or alcohol intake. REVIEW OF SYSTEMS: ENT: As mentioned earlier. Cardiovascular System: No angina or palpitations. Respiration: No cough or hemoptysis. GI no nausea or vomiting. : No dysuria. Nervous System: As mentioned earlier. Allergies/Immunology: No asthma or hay fever. MUSCULOSKELETAL: As mentioned earlier. Hematology/Oncology: No history of anemia. Endocrine: Diabetes. CONSTITUTIONAL: As mentioned earlier. Dermatology: Negative. Rheumatology: Negative. Psychiatric: As mentioned earlier. PHYSICAL EXAMINATION: The patient is alert and oriented times three. Pulse 89, blood pressure 150/70, respiratory rate 16, temperature 98.2, pulse ox 98% on 2 L. HEENT conjunctivae normal. Oral mucosa moist. Neck is no jugular venous distention. No carotid bruit. No lymph node enlargement. Cardiovascular system: S1, S2 muffled. Respiratory: Breath sounds diminished in the bases. No rhonchi. No crackles. ABDOMEN: Soft, nontender. No mass palpable. Legs no edema. No swelling. NERVOUS SYSTEM: Higher functions as mentioned earlier. Moves all four limbs. No focal deficits. Lymphatics: No lymph nodes palpable in the neck, axillae or groin. SKIN: No ulcers, rash or bleeding. LAB STUDIES: At this time shows Accu-Cheks are 453, CBC within normal limits. Creatinine is normal. ASSESSMENT: 1. Syncope for evaluation, possible cardiac arrhythmia, rule out transient ischemic attack. 2. History of coronary artery disease. 3. History atrial ablation. 4. Chronic obstructive pulmonary disease. 5. Diabetes type 2. 6. Hypertension. 7. Hyperlipidemia. 8. Sleep apnea. 9. History of pneumonia. 10.History of coronary artery disease, stent. 11.Bipolar depression. RECOMMENDATIONS AND DISCUSSION: In this 67-year-old gentleman who presented with multiple complex medical issues , we will monitor the patient closely. Continue the current medications, symptomatic treatment, management and otherwise at this time I recommend resume the home medications. Follow closely with Cardiology and neurology as an outpatient as well as Dr. Fierro at the [facility] and possible Holter monitoring or event monitoring. Further recommendations to follow. The patient is keen on going home at this time. MMODL / IJN: [id number] / SHANNEN
== END 2017-11-07 14:18 | disposition home or self-care (01) ==
LOC: EC 22:43 → 3OBS 23:52
PROVIDERS: ADMIT Internal Medicine; ATTEND Internal Medicine
DX: R55 Syncope and collapse (principal); R11.0 Nausea; J44.9 Chronic obstructive pulmonary disease, unspecified; I48.91 Unspecified atrial fibrillation; I25.10 Atherosclerotic heart disease of native coronary artery without angina pectoris; I10 Essential (primary) hypertension; G47.30 Sleep apnea, unspecified; E78.5 Hyperlipidemia, unspecified; E11.9 Type 2 diabetes mellitus without complications; M10.9 Gout, unspecified; H26.9 Unspecified cataract; F31.9 Bipolar disorder, unspecified; Z95.5 Presence of coronary angioplasty implant and graft; Z79.899 Other long term (current) drug therapy; Z79.82 Long term (current) use of aspirin; Z79.4 Long term (current) use of insulin; Z79.51 Long term (current) use of inhaled steroids; Z99.89 Dependence on other enabling machines and devices; Z87.442 Personal history of urinary calculi; Z87.891 Personal history of nicotine dependence; Z82.49 Family history of ischemic heart disease and other diseases of the circulatory system; Z87.01 Personal history of pneumonia (recurrent)
CPT/HCPCS: 96361; 96374; 99285; 36415; 93005; 85379; 80053; 82550; 82553; 82947; 84484 ×2; 85025; 83036; 71046; 70450; G0378 ×2; J2765

== ENCOUNTER → 2017-11-12 | Outpatient (CLI) | payer MEDICARE ==
--- NOTE | 2017-11-12 09:54 | US ---
EXAMINATION TYPE: US carotid duplex BILAT DATE OF EXAM: 11/12/2017 COMPARISON: NONE CLINICAL HISTORY: R55 syncope. Syncope EXAM MEASUREMENTS: RIGHT: Peak Systolic Velocity (PSV) cm/sec ----- Right CCA: 80.6 ----- Right ICA: 67.3 ----- Right ECA: 140.2 ICA/CCA ratio: 0.8 RIGHT: End Diastole cm/sec ----- Right CCA: 16.2 ----- Right ICA: 22.1 ----- Right ECA: 19.5 LEFT: Peak Systolic Velocity (PSV) cm/sec ----- Left CCA: 79.2 ----- Left ICA: 81.6 ----- Left ECA: 136.0 ICA/CCA ratio: 1.0 LEFT: End Diastole cm/sec ----- Left CCA: 18.6 ----- Left ICA: 17.4 ----- Left ECA: 18.7 VERTEBRALS (direction of flow): Right Vertebral: Antegrade Left Vertebral: Antegrade Rhythm: Normal Bilateral intimal thickening, plaque bilateral bulb and proximal ICA and ECA, greater on the right, e levated velocities: right mid ECA and left mid ECA. IMPRESSION: 1. Bilateral intimal thickening with no significant hemodynamic stenosis bilaterally.
--- NOTE | 2017-11-12 11:20 | ECHOF ---
Referral Reason:R55 syncope MEASUREMENTS -------- HEIGHT: 182.9 cm WEIGHT: 111.1 kg BP: IVSd: 1.3 cm (0.6 - 1.1) LVIDd: 4.1 cm (3.9 - 5.3) LVPWd: 1.6 cm (0.6 - 1.1) IVSs: 1.9 cm LVIDs: 2.4 cm LVPWs: 2.4 cm LAESV Index (A-L): 19.45 ml/m Ao Diam: 3.6 cm (2.0 - 3.7) AV Cusp: 2.4 cm (1.5 - 2.6) LA Diam: 3.9 cm (2.7 - 3.8) MV EXCURSION: 13.275 mm (> 18.000) MV EF SLOPE: 178 mm/s (70 - 150) EPSS: 0.8 cm RAP: 5.00 mmHg RVSP: 31.41 mmHg FINDINGS -------- Sinus rhythm. This was a technically good study. The left ventricular size is normal. There is mild concentric left ventricular hypertrophy. Overa ll left ventricular systolic function is normal with, an EF between 55 - 60 %. The right ventricle is normal in size and function. The left atrium is normal in size. The right atrium is normal in size. The aortic valve is trileaflet, and appears structurally normal. No aortic stenosis or regurgitation. There is trace mitral regurgitation. Trace tricuspid regurgitation present. The right ventricular systolic pressure, as measured by Dopp ler, is 31.41mmHg. Pulmonic valve appears structurally normal. The aortic root size is normal. Normal inferior vena cava with normal inspiratory collapse consistent with estimated right atrial pre ssure of 5 mmHg. The pericardium is normal. CONCLUSIONS -------- 1. Sinus rhythm. 2. This was a technically good study. 3. The left ventricular size is normal. 4. There is mild concentric left ventricular hypertrophy. 5. Overall left ventricular systolic function is normal with, an EF between 55 - 60 %. 6. The right ventricle is normal in size and function. 7. The left atrium is normal in size. 8. The right atrium is normal in size. 9. The aortic valve is trileaflet, and appears structurally normal. No aortic stenosis or regurgitati on. 10. There is trace mitral regurgitation. 11. Trace tricuspid regurgitation present. 12. The right ventricular systolic pressure, as measured by Doppler, is 31.41mmHg. 13. Pulmonic valve appears structurally normal. 14. The aortic root size is normal. 15. Normal inferior vena cava with normal inspiratory collapse consistent with estimated right atrial pressure of 5 mmHg. 16. The pericardium is normal. RESEARCH TEST ENGINE EVALUATOR: Adrianne Garcia RDCS
== END | disposition home or self-care (01) ==
LOC: RADUSMAIN 09:00
PROVIDERS: ATTEND Internal Medicine Critical Care Medicine
DX: I77.9 Disorder of arteries and arterioles, unspecified (principal); I51.7 Cardiomegaly; R55 Syncope and collapse
CPT/HCPCS: 93225; 93226; 93306; 93880

== ENCOUNTER → 2017-11-24 | Outpatient (CLI) | payer OTHER ==
--- NOTE | 2017-11-24 14:25 | CT ---
EXAMINATION TYPE: CT abdomen pelvis wo con DATE OF EXAM: 11/24/2017 COMPARISON: 11/20/2016 HISTORY: Groin pain CT DLP: 1383.00 mGycm Automated exposure control for dose reduction was used. TECHNIQUE: Helical acquisition of images was performed from the lung bases through the pelvis. FINDINGS: LUNG BASES: There is a tiny pericardial effusion. Subsegmental changes at the left lung base most typ ical atelectasis. Coronary artery calcification noted. LIVER/GB: There appear to be gallstones as well as at least 3 calcifications suspected within the com mon bile duct. PANCREAS: No significant abnormality is seen. SPLEEN: No significant abnormality is seen. ADRENALS: No significant abnormality is seen. KIDNEYS: There are 3 calcifications on the right all measuring less than 3 mm with no hydronephrosis. There is a single 3 mm left renal calculus with no hydronephrosis. Vague hyperdensity involving the cortex of the right kidney measuring less than 5 mm too small to characterize. FREE AIR: No free air is visualized ADENOPATHY: None visualized URINARY BLADDER: No significant abnormality is seen. Limited by incomplete distention. PELVIC ADENOPATHY: None visualized. OSSEOUS STRUCTURES: Hypertrophic and degenerative change of the spine noted. Canal stenosis L3-4, L2 -3 and L4-5. BOWEL: Diverticulosis of the colon with no evidence of bowel obstruction. OTHER: Fat-containing inguinal hernias are noted bilaterally greater on the left. Soft tissue calcifi cation on the left noted within the anterior musculature there is atherosclerotic change of the vascu lature. No sizable aneurysm. Nonspecific subcutaneous edema lower anterior abdominal wall is stable. IMPRESSION: 1. Fat-containing bilateral inguinal hernias greater on the left which extends into the scrotal sac. 2. Cholelithiasis with stone suspected within the common bile duct but no biliary dilation. 3. Nonobstructing bilateral renal calculi. 4. Tiny pericardial effusion.
== END | disposition home or self-care (01) ==
LOC: RADCTMAIN 13:32
PROVIDERS: ATTEND Family Medicine
DX: K40.20 Bilateral inguinal hernia, without obstruction or gangrene, not specified as recurrent (principal); N20.0 Calculus of kidney
CPT/HCPCS: 74176

== ENCOUNTER → 2017-12-28 | Outpatient (CLI) | payer MEDICARE, OTHER ==
[2017-12-28 16:17] LABS: ALT 85 U/L (21-72); AST 58 U/L (17-59); Albumin 4.4 g/dL (3.5-5.0); Alkaline Phosphatase 123 U/L (38-126); Anion Gap 11 mmol/L; Blood Urea Nitrogen 33 mg/dL (9-20); Calcium 9.7 mg/dL (8.4-10.2); Carbon Dioxide 27 mmol/L (22-30); Chloride 99 mmol/L (98-107); Glucose 228 mg/dL (74-99); Potassium 4.8 mmol/L (3.5-5.1); Sodium 137 mmol/L (137-145); Total Bilirubin 0.3 mg/dL (0.2-1.3); Total Protein 7.2 g/dL (6.3-8.2)
== END | disposition home or self-care (01) ==
LOC: LABWHC1 15:36
PROVIDERS: ATTEND Internal Medicine Endocrinology, Diabetes & Metabolism
DX: E11.65 Type 2 diabetes mellitus with hyperglycemia (principal)
CPT/HCPCS: 36415; 80053; 84681

== ENCOUNTER → 2018-01-20 | Outpatient (CLI) | payer OTHER ==
[2018-01-20 10:00] LABS: Albumin 4.3 g/dL (3.5-5.0); Potassium 4.7 mmol/L (3.5-5.1); Total Bilirubin 0.3 mg/dL (0.2-1.3); Total Protein 7.1 g/dL (6.3-8.2)
== END | disposition home or self-care (01) ==
LOC: LABWHC1 08:41
PROVIDERS: ATTEND Internal Medicine Interventional Cardiology
DX: E78.2 Mixed hyperlipidemia (principal)
CPT/HCPCS: 36415; 80053; 80061; 82550

== ENCOUNTER 2018-05-25 20:30 | Emergency (ER) | payer OTHER ==
--- NOTE | 2018-05-25 21:11 | ED ---
General Adult HPI - General Chief complaint: Chest Pain Stated complaint: chest pain Time Seen by Provider: 05/25/18 20:41 Source: patient, RN notes reviewed, old records reviewed Mode of arrival: wheelchair Limitations: no limitations - History of Present Illness Initial comments: This is a 67-year-old male the ER for evaluation. Patient has no history of heart disease high blood pressure high cholesterol stent. Patient has no recent cardiac evaluation, started with chest pain tonight. Patient is anterior chest pain radiating to his jaw. The radiation to his jaw and arm are now resolved. Patient is still with chest pain. No diaphoresis no shortness of breath. No recent cardiac evaluation. No travel history no sick contacts no fevers cough or congestion - Related Data Home Medications Medication Instructions Recorded Confirmed ARIPiprazole [Abilify] 7.5 mg PO HS 11/03/14 05/25/18 Citalopram Hydrobromide 40 mg PO DAILY 11/03/14 05/25/18 [Citalopram HBr] Ascorbic Acid [Vitamin C] 500 mg PO DAILY 01/17/16 05/25/18 Cholecalciferol [Vitamin D3] 2,000 unit PO BID 01/17/16 05/25/18 [place]-3 Fatty Acids/Fish Oil [Fish 1 cap PO DAILY 07/02/16 05/25/18 Oil 1,000 mg Softgel] traZODone HCL 150 mg PO HS 07/02/16 05/25/18 Aspirin EC [Ecotrin Low Dose] 81 mg PO DAILY 11/20/16 05/25/18 Colchicine 0.6 mg PO DAILY 11/20/16 05/25/18 Montelukast [Singulair] 10 mg PO HS 11/20/16 05/25/18 Albuterol Sulfate [Proventil Hfa] 2 puff INHALATION RT-Q4H PRN 02/19/17 05/25/18 Budesonide/Formoterol Fumarate 2 puff INHALATION RT-BID 02/19/17 05/25/18 [Symbicort 160-4.5 Mcg Inhaler] Metoprolol Tartrate [Lopressor] 25 mg PO BID 02/19/17 05/25/18 Ferrous Sulfate [Feosol] 325 mg PO BID 04/29/17 05/25/18 Lisinopril [Zestril] 10 mg PO BID 04/29/17 05/25/18 Hydrochlorothiazide [Hydrodiuril] 12.5 mg PO HS 07/27/17 05/25/18 Insulin Aspart [NovoLOG 10 - 12 unit SQ AC-TID 07/27/17 05/25/18 (formulary)] Atorvastatin [Lipitor] 20 mg PO HS 08/13/17 05/25/18 Bisoprolol [Zebeta] 5 mg PO DAILY 08/31/17 05/25/18 Magnesium Oxide [Mag-Ox] 800 mg PO BID 08/31/17 05/25/18 Insulin Detemir [Levemir] 83 unit SQ BID 11/06/17 05/25/18 Saxagliptin HCl [Onglyza] 5 mg PO HS 11/06/17 05/25/18 Previous Rx's Medication Instructions Recorded Ticagrelor [Brilinta] 90 mg PO BID #60 tab 08/15/17 Isosorbide Mononitrate ER [Imdur] 30 mg PO HS #30 tab.er.24h 09/01/17 Allergies Allergy/AdvReac Type Severity Reaction Status Date / Time No Known Allergies Allergy Verified 05/25/18 21:43 Review of Systems ROS Statement: Those systems with pertinent positive or pertinent negative responses have been documented in the HPI. ROS Other: All systems not noted in ROS Statement are negative. Past Medical History Past Medical History: Atrial Fibrillation, Coronary Artery Disease (CAD), Chest Pain / Angina, COPD, Diabetes Mellitus, Hyperlipidemia, Hypertension, Pneumonia , Sleep Apnea/CPAP/BIPAP Additional Past Medical History / Comment(s): USES CPAP. HX KIDNEY STONES, GOUT , CATARACTS. LASIK SX, BIPOLAR DEPRESSION. LOWER BRIDGE, gall stone History of Any Multi-Drug Resistant Organisms: None Reported Past Surgical History: Heart Catheterization With Stent, Hernia Repair, Orthopedic Surgery, Tonsillectomy Additional Past Surgical History / Comment(s): Pilonidal cyst. EXC ABDI CATARACTS. Bilateral Knee Sx. LITHOTRIPSY. COLONOSCOPY. 05-15-16 at [facility] had heart cath w/1 stent, 05-21-16 had 2 more stents - another stent placed 06/26, total of 6 stents. Past Anesthesia/Blood Transfusion Reactions: No Reported Reaction Date of Last Stent Placement:: 06/25/2017 Past Psychological History: Bipolar, Depression Smoking Status: Former smoker Past Alcohol Use History: None Reported Past Drug Use History: None Reported - Past Family History Mother Family Medical History: Coronary Artery Disease (CAD) Father Family Medical History: Coronary Artery Disease (CAD) Additional Family Medical History / Comment(s): emphysema General Exam Limitations: no limitations General appearance: alert, in no apparent distress Head exam: Present: atraumatic, normocephalic, normal inspection Eye exam: Present: normal appearance, PERRL, EOMI. Absent: scleral icterus, conjunctival injection, periorbital swelling ENT exam: Present: normal exam, mucous membranes moist Neck exam: Present: normal inspection. Absent: tenderness, meningismus, lymphadenopathy Respiratory exam: Present: normal lung sounds bilaterally. Absent: respiratory distress, wheezes, rales, rhonchi, stridor Cardiovascular Exam: Present: regular rate, normal rhythm, normal heart sounds. Absent: systolic murmur, diastolic murmur, rubs, gallop, clicks GI/Abdominal exam: Present: soft, normal bowel sounds. Absent: distended, tenderness, guarding, rebound, rigid Extremities exam: Present: normal inspection, full ROM, normal capillary refill. Absent: tenderness, pedal edema, joint swelling, calf tenderness Back exam: Present: normal inspection Neurological exam: Present: alert, oriented X3, CN II-XII intact Psychiatric exam: Present: normal affect, normal mood Skin exam: Present: warm, dry, intact, normal color. Absent: rash Course Vital Signs 05/25/18 05/25/18 20:34 22:31 Temperature 97.5 F L 97.4 F L Pulse Rate 91 82 Respiratory 20 18 Rate Blood Pressure 148/78 140/63 O2 Sat by Pulse 94 L 95 Oximetry - Reevaluation(s) Reevaluation #1: Social patient at length regarding severe risk of heart disease, patient understands risk but does not want to stay in hospital currently EKG Findings - EKG Comments: EKG Findings:: EKG shows normal sinus rhythm rate of 86, VT 1:30, QRS 88, QTc 462 Medical Decision Making - Medical Decision Making 67 male the ER for evaluation of chest pain, chest pain is atypical, now resolved. Patient states he has history of heart disease but does not want stay in hospital for further evaluation at this time, patient will be discharged home - Lab Data Result diagrams: 05/25/18 21:00 05/25/18 21:00 Lab Results 05/25/18 05/25/18 05/25/18 Range/Units 21:00 21:00 21:00 WBC 9.2 (3.8-10.6) k/uL RBC 4.13 L (4.30-5.90) m/uL Hgb 11.5 L (13.0-17.5) gm/dL Hct 35.4 L (39.0-53.0) % MCV 85.7 (80.0-100.0) fL MCH 27.9 (25.0-35.0) pg MCHC 32.5 (31.0-37.0) g/dL RDW 14.4 (11.5-15.5) % Plt Count 308 (150-450) k/uL Neutrophils % 78 % Lymphocytes % 13 % Monocytes % 6 % Eosinophils % 2 % Basophils % 0 % Neutrophils # 7.2 (1.3-7.7) k/uL Lymphocytes # 1.2 (1.0-4.8) k/uL Monocytes # 0.5 (0-1.0) k/uL Eosinophils # 0.2 (0-0.7) k/uL Basophils # 0.0 (0-0.2) k/uL PT (9.0-12.0) sec INR (<1.2) APTT (22.0-30.0) sec Sodium 134 L (137-145) mmol/L Potassium 4.6 (3.5-5.1) mmol/L Chloride 100 (98-107) mmol/L Carbon Dioxide 20 L (22-30) mmol/L Anion Gap 14 mmol/L BUN 51 H (9-20) mg/dL Creatinine 1.12 (0.66-1.25) mg/dL Est GFR (CKD-EPI)AfAm 78 (>60 ml/min/1.73 sqM) Est GFR (CKD-EPI)NonAf 68 (>60 ml/min/1.73 sqM) Glucose 177 H (74-99) mg/dL Calcium 9.1 (8.4-10.2) mg/dL Magnesium 1.6 (1.6-2.3) mg/dL Total Bilirubin 0.2 (0.2-1.3) mg/dL AST 73 H (17-59) U/L ALT 86 H (21-72) U/L Alkaline Phosphatase 155 H (38-126) U/L Total Creatine Kinase 631 H (55-170) U/L CK-MB (CK-2) 5.9 H* (0.0-2.4) ng/mL CK-MB (CK-2) Rel Index 0.9 Troponin I <0.012 (0.000-0.034) ng/mL Total Protein 6.4 (6.3-8.2) g/dL Albumin 3.9 (3.5-5.0) g/dL 05/25/18 Range/Units 21:00 WBC (3.8-10.6) k/uL RBC (4.30-5.90) m/uL Hgb (13.0-17.5) gm/dL Hct (39.0-53.0) % MCV (80.0-100.0) fL MCH (25.0-35.0) pg MCHC (31.0-37.0) g/dL RDW (11.5-15.5) % Plt Count (150-450) k/uL Neutrophils % % Lymphocytes % % Monocytes % % Eosinophils % % Basophils % % Neutrophils # (1.3-7.7) k/uL Lymphocytes # (1.0-4.8) k/uL Monocytes # (0-1.0) k/uL Eosinophils # (0-0.7) k/uL Basophils # (0-0.2) k/uL PT 9.5 (9.0-12.0) sec INR 1.0 (<1.2) APTT 23.7 (22.0-30.0) sec Sodium (137-145) mmol/L Potassium (3.5-5.1) mmol/L Chloride (98-107) mmol/L Carbon Dioxide (22-30) mmol/L Anion Gap mmol/L BUN (9-20) mg/dL Creatinine (0.66-1.25) mg/dL Est GFR (CKD-EPI)AfAm (>60 ml/min/1.73 sqM) Est GFR (CKD-EPI)NonAf (>60 ml/min/1.73 sqM) Glucose (74-99) mg/dL Calcium (8.4-10.2) mg/dL Magnesium (1.6-2.3) mg/dL Total Bilirubin (0.2-1.3) mg/dL AST (17-59) U/L ALT (21-72) U/L Alkaline Phosphatase (38-126) U/L Total Creatine Kinase (55-170) U/L CK-MB (CK-2) (0.0-2.4) ng/mL CK-MB (CK-2) Rel Index Troponin I (0.000-0.034) ng/mL Total Protein (6.3-8.2) g/dL Albumin (3.5-5.0) g/dL - Radiology Data Radiology results: report reviewed (Chest x-rays negative for acute disease), image reviewed Disposition Clinical Impression: Atypical chest pain, Chest pain, Costalchondritis Disposition: HOME SELF-CARE Condition: Good Instructions: Chest Pain (ED), Costochondritis (ED) Is patient prescribed a controlled substance at d/c from ED?: No Referrals: [facility],Clinic [Primary Care Provider] - 1-2 days
[2018-05-25 21:20] LABS: Basophils % (A) 0 %; Eosinophils # (A) 0.2 k/uL (0-0.7); Eosinophils % (A) 2 %; HCT 35.4 % (39.0-53.0); HGB 11.5 gm/dL (13.0-17.5); Lymphocytes # (A) 1.2 k/uL (1.0-4.8); Lymphocytes % (A) 13 %; MCH 27.9 pg (25.0-35.0); MCHC 32.5 g/dL (31.0-37.0); MCV 85.7 fL (80.0-100.0); Mean Platelet Volume 6.4; Monocytes # (A) 0.5 k/uL (0-1.0); Monocytes % (A) 6 %; Neutrophils # (A) 7.2 k/uL (1.3-7.7); Neutrophils % (A) 78 %; Platelet Count 308 k/uL (150-450); RBC 4.13 m/uL (4.30-5.90); RDW 14.4 % (11.5-15.5); WBC 9.2 k/uL (3.8-10.6)
[2018-05-25 21:24] LABS: Partial Thromboplastin Time 23.7 sec (22.0-30.0); Prothrombin Time 9.5 sec (9.0-12.0)
[2018-05-25 21:38] LABS: Albumin 3.9 g/dL (3.5-5.0); Calcium 9.1 mg/dL (8.4-10.2); Magnesium 1.6 mg/dL (1.6-2.3); Potassium 4.6 mmol/L (3.5-5.1); Total Bilirubin 0.2 mg/dL (0.2-1.3); Total Protein 6.4 g/dL (6.3-8.2)
--- NOTE | 2018-05-25 21:45 | XR ---
EXAMINATION TYPE: XR chest 2V DATE OF EXAM: 05/25/2018 COMPARISON: 05/18/2018 HISTORY: Chest pain TECHNIQUE: Frontal and lateral views of the chest are obtained. FINDINGS: Heart and mediastinum are normal. Lungs are clear. Costophrenic angles are clear. There ar e chest leads. Bony thorax is intact. IMPRESSION: No active cardiopulmonary disease. No change.
[2018-05-25 21:48] LABS: Creatine Kinase 631 U/L (55-170)
[2018-05-25 22:01] LABS: Troponin I <0.012 ng/mL (0.000-0.034)
[2018-05-25] MEDS ORDERED: DEXAMETHASONE SOD PHOSPHATE 10 MG/ML 1 ML VIAL IV STA (22:02)
[2018-05-25 22:03] LABS: Creatine Kinase MB 5.9 ng/mL (0.0-2.4)
[2018-05-25 22:33] VITALS: BP 140/63; PULSE 82; RESP 18; TEMP 97.4
== END 2018-05-25 22:33 | disposition home or self-care (01) ==
LOC: EC 20:30
DX: M94.0 Chondrocostal junction syndrome [Tietze] (principal); I48.91 Unspecified atrial fibrillation; I25.119 Atherosclerotic heart disease of native coronary artery with unspecified angina pectoris; J44.9 Chronic obstructive pulmonary disease, unspecified; E11.9 Type 2 diabetes mellitus without complications; E78.5 Hyperlipidemia, unspecified; I10 Essential (primary) hypertension; G47.30 Sleep apnea, unspecified; Z99.89 Dependence on other enabling machines and devices; F31.9 Bipolar disorder, unspecified; Z87.891 Personal history of nicotine dependence; Z79.82 Long term (current) use of aspirin; Z79.4 Long term (current) use of insulin; Z79.51 Long term (current) use of inhaled steroids; Z79.899 Other long term (current) drug therapy; Z95.5 Presence of coronary angioplasty implant and graft; Z82.49 Family history of ischemic heart disease and other diseases of the circulatory system
CPT/HCPCS: 99285; 96374; 36415; 93005; 80053; 82550; 82553; 83735; 84484; 85025; 85610; 85730; 71046; J1100

== ENCOUNTER 2018-06-23 20:33 | Emergency (ER) | payer OTHER ==
[2018-06-23 20:40] VITALS: RESP 18
--- NOTE | 2018-06-23 20:52 | ED ---
General Adult HPI - General Chief complaint: Chest Pain Stated complaint: chest pain Time Seen by Provider: 06/23/18 20:43 Source: patient, RN notes reviewed, old records reviewed Mode of arrival: wheelchair Limitations: no limitations - History of Present Illness Initial comments: This is a 67-year-old male the ER for evasive chest pain. Patient was emergency room for visits regarding chest pain heart disease. Patient is history of heart disease history of 04/11. Patient states the chest pain started prior to arrival. 2 hours prior to arrival he took 2 nitro with resolution of chest pain. Patient states she's relatively chest pain-free currently no shortness of breath. No other complaints - Related Data Home Medications Medication Instructions Recorded Confirmed ARIPiprazole [Abilify] 5 mg PO HS 11/03/14 06/03/18 Citalopram Hydrobromide 40 mg PO DAILY 11/03/14 06/03/18 [Citalopram HBr] Ascorbic Acid [Vitamin C] 500 mg PO DAILY 01/17/16 06/03/18 Cholecalciferol [Vitamin D3] 2,000 unit PO BID 01/17/16 06/03/18 [place]-3 Fatty Acids/Fish Oil [Fish 1,000 mg PO DAILY 07/02/16 06/03/18 Oil 1,000 mg Softgel] traZODone HCL 150 mg PO HS 07/02/16 06/03/18 Aspirin EC [Ecotrin Low Dose] 81 mg PO DAILY 11/20/16 06/03/18 Colchicine 0.6 mg PO DAILY 11/20/16 06/03/18 Montelukast [Singulair] 10 mg PO HS 11/20/16 06/03/18 Albuterol Sulfate [Proventil Hfa] 2 puff INHALATION Q4H PRN 02/19/17 06/03/18 Budesonide/Formoterol Fumarate 2 puff INHALATION BID 02/19/17 06/03/18 [Symbicort 160-4.5 Mcg Inhaler] Metoprolol Tartrate [Lopressor] 25 mg PO BID 02/19/17 06/03/18 Ferrous Sulfate [Feosol] 325 mg PO BID 04/29/17 06/03/18 Lisinopril [Zestril] 10 mg PO BID 04/29/17 06/03/18 Hydrochlorothiazide [Hydrodiuril] 12.5 mg PO HS 07/27/17 06/03/18 Insulin Aspart [NovoLOG 45 unit SQ AC-TID 07/27/17 06/03/18 (formulary)] Atorvastatin [Lipitor] 20 mg PO HS 08/13/17 06/03/18 Bisoprolol [Zebeta] 5 mg PO DAILY 08/31/17 06/03/18 Magnesium Oxide [Mag-Ox] 400 mg PO BID 08/31/17 06/03/18 Insulin Detemir [Levemir] 94 unit SQ BID 11/06/17 06/03/18 Saxagliptin HCl [Onglyza] 5 mg PO HS 11/06/17 06/03/18 predniSONE 5 mg PO DAILY 06/03/18 Previous Rx's Medication Instructions Recorded Ticagrelor [Brilinta] 90 mg PO BID #60 tab 08/15/17 Isosorbide Mononitrate ER [Imdur] 30 mg PO HS #30 tab.er.24h 09/01/17 Allergies Allergy/AdvReac Type Severity Reaction Status Date / Time No Known Allergies Allergy Verified 06/03/18 16:09 Review of Systems ROS Statement: Those systems with pertinent positive or pertinent negative responses have been documented in the HPI. ROS Other: All systems not noted in ROS Statement are negative. Past Medical History Past Medical History: Atrial Fibrillation, Coronary Artery Disease (CAD), Chest Pain / Angina, COPD, Diabetes Mellitus, Hyperlipidemia, Hypertension, Pneumonia , Sleep Apnea/CPAP/BIPAP Additional Past Medical History / Comment(s): USES CPAP. HX KIDNEY STONES, GOUT , CATARACTS. LASIK SX, BIPOLAR DEPRESSION. LOWER BRIDGE, gall stone History of Any Multi-Drug Resistant Organisms: None Reported Past Surgical History: Heart Catheterization With Stent, Hernia Repair, Orthopedic Surgery, Tonsillectomy Additional Past Surgical History / Comment(s): Pilonidal cyst. EXC ABDI CATARACTS. Bilateral Knee Sx. LITHOTRIPSY. COLONOSCOPY. 05-15-16 at [facility] had heart cath w/1 stent, 05-21-16 had 2 more stents - another stent placed 06/26, total of 6 stents. Past Anesthesia/Blood Transfusion Reactions: No Reported Reaction Date of Last Stent Placement:: 06/25/2017 Past Psychological History: Bipolar, Depression Smoking Status: Former smoker Past Alcohol Use History: None Reported Past Drug Use History: None Reported - Past Family History Mother Family Medical History: Coronary Artery Disease (CAD) Father Family Medical History: Coronary Artery Disease (CAD) Additional Family Medical History / Comment(s): emphysema General Exam Limitations: no limitations General appearance: alert, in no apparent distress Head exam: Present: atraumatic, normocephalic, normal inspection Eye exam: Present: normal appearance, PERRL, EOMI. Absent: scleral icterus, conjunctival injection, periorbital swelling ENT exam: Present: normal exam, mucous membranes moist Neck exam: Present: normal inspection. Absent: tenderness, meningismus, lymphadenopathy Respiratory exam: Present: normal lung sounds bilaterally. Absent: respiratory distress, wheezes, rales, rhonchi, stridor Cardiovascular Exam: Present: regular rate, normal rhythm, normal heart sounds. Absent: systolic murmur, diastolic murmur, rubs, gallop, clicks GI/Abdominal exam: Present: soft, normal bowel sounds. Absent: distended, tenderness, guarding, rebound, rigid Extremities exam: Present: normal inspection, full ROM, normal capillary refill. Absent: tenderness, pedal edema, joint swelling, calf tenderness Back exam: Present: normal inspection Neurological exam: Present: alert, oriented X3, CN II-XII intact Psychiatric exam: Present: normal affect, normal mood Skin exam: Present: warm, dry, intact, normal color. Absent: rash Course Vital Signs 06/23/18 06/23/18 06/23/18 20:36 21:22 22:27 Temperature 97.4 F L Pulse Rate 98 70 86 Respiratory 18 18 18 Rate Blood Pressure 128/74 121/73 124/60 O2 Sat by Pulse 94 L 100 96 Oximetry - Reevaluation(s) Reevaluation #1: 06/23/18 21:44 Medical records thoroughly reviewed, EKG Findings - EKG Comments: EKG Findings:: EKG shows junctional rhythm rate of 87, QRS 92, QTc 5 to Medical Decision Making - Lab Data Result diagrams: 06/23/18 20:58 06/23/18 20:58 Lab Results 06/23/18 06/23/18 06/23/18 Range/Units 20:58 20:58 20:58 WBC 8.7 (3.8-10.6) k/uL RBC 3.75 L (4.30-5.90) m/uL Hgb 11.1 L (13.0-17.5) gm/dL Hct 32.7 L (39.0-53.0) % MCV 87.3 (80.0-100.0) fL MCH 29.7 (25.0-35.0) pg MCHC 34.0 (31.0-37.0) g/dL RDW 14.8 (11.5-15.5) % Plt Count 253 (150-450) k/uL Neutrophils % 78 % Lymphocytes % 11 % Monocytes % 7 % Eosinophils % 2 % Basophils % 0 % Neutrophils # 6.8 (1.3-7.7) k/uL Lymphocytes # 1.0 (1.0-4.8) k/uL Monocytes # 0.6 (0-1.0) k/uL Eosinophils # 0.1 (0-0.7) k/uL Basophils # 0.0 (0-0.2) k/uL PT (9.0-12.0) sec INR (<1.2) APTT (22.0-30.0) sec Sodium 138 (137-145) mmol/L Potassium 4.4 (3.5-5.1) mmol/L Chloride 106 (98-107) mmol/L Carbon Dioxide 20 L (22-30) mmol/L Anion Gap 12 mmol/L BUN 55 H (9-20) mg/dL Creatinine 1.33 H (0.66-1.25) mg/dL Est GFR (CKD-EPI)AfAm 64 (>60 ml/min/1.73 sqM) Est GFR (CKD-EPI)NonAf 55 (>60 ml/min/1.73 sqM) Glucose 142 H (74-99) mg/dL Calcium 9.4 (8.4-10.2) mg/dL Magnesium 1.5 L (1.6-2.3) mg/dL Total Bilirubin 0.2 (0.2-1.3) mg/dL AST 37 (17-59) U/L ALT 65 (21-72) U/L Alkaline Phosphatase 133 H (38-126) U/L Total Creatine Kinase 477 H (55-170) U/L CK-MB (CK-2) 5.1 H* (0.0-2.4) ng/mL CK-MB (CK-2) Rel Index 1.1 Troponin I <0.012 (0.000-0.034) ng/mL Total Protein 6.6 (6.3-8.2) g/dL Albumin 3.9 (3.5-5.0) g/dL Lipase 277 (23-300) U/L 06/23/18 Range/Units 20:58 WBC (3.8-10.6) k/uL RBC (4.30-5.90) m/uL Hgb (13.0-17.5) gm/dL Hct (39.0-53.0) % MCV (80.0-100.0) fL MCH (25.0-35.0) pg MCHC (31.0-37.0) g/dL RDW (11.5-15.5) % Plt Count (150-450) k/uL Neutrophils % % Lymphocytes % % Monocytes % % Eosinophils % % Basophils % % Neutrophils # (1.3-7.7) k/uL Lymphocytes # (1.0-4.8) k/uL Monocytes # (0-1.0) k/uL Eosinophils # (0-0.7) k/uL Basophils # (0-0.2) k/uL PT 9.5 (9.0-12.0) sec INR 1.0 (<1.2) APTT 23.5 (22.0-30.0) sec Sodium (137-145) mmol/L Potassium (3.5-5.1) mmol/L Chloride (98-107) mmol/L Carbon Dioxide (22-30) mmol/L Anion Gap mmol/L BUN (9-20) mg/dL Creatinine (0.66-1.25) mg/dL Est GFR (CKD-EPI)AfAm (>60 ml/min/1.73 sqM) Est GFR (CKD-EPI)NonAf (>60 ml/min/1.73 sqM) Glucose (74-99) mg/dL Calcium (8.4-10.2) mg/dL Magnesium (1.6-2.3) mg/dL Total Bilirubin (0.2-1.3) mg/dL AST (17-59) U/L ALT (21-72) U/L Alkaline Phosphatase (38-126) U/L Total Creatine Kinase (55-170) U/L CK-MB (CK-2) (0.0-2.4) ng/mL CK-MB (CK-2) Rel Index Troponin I (0.000-0.034) ng/mL Total Protein (6.3-8.2) g/dL Albumin (3.5-5.0) g/dL Lipase (23-300) U/L Disposition Clinical Impression: Costalchondritis, Chest pain Disposition: HOME SELF-CARE Condition: Good Instructions: Chest Pain (ED) Is patient prescribed a controlled substance at d/c from ED?: No Referrals: [facility],Clinic [Primary Care Provider] - 1-2 days
[2018-06-23 21:13] LABS: Basophils % (A) 0 %; Eosinophils # (A) 0.1 k/uL (0-0.7); Eosinophils % (A) 2 %; HCT 32.7 % (39.0-53.0); HGB 11.1 gm/dL (13.0-17.5); Lymphocytes % (A) 11 %; MCH 29.7 pg (25.0-35.0); MCV 87.3 fL (80.0-100.0); Mean Platelet Volume 6.6; Monocytes # (A) 0.6 k/uL (0-1.0); Monocytes % (A) 7 %; Neutrophils # (A) 6.8 k/uL (1.3-7.7); Neutrophils % (A) 78 %; Platelet Count 253 k/uL (150-450); RBC 3.75 m/uL (4.30-5.90); RDW 14.8 % (11.5-15.5); WBC 8.7 k/uL (3.8-10.6)
[2018-06-23 21:22] LABS: Partial Thromboplastin Time 23.5 sec (22.0-30.0); Prothrombin Time 9.5 sec (9.0-12.0)
[2018-06-23 21:35] LABS: Creatine Kinase 477 U/L (55-170)
[2018-06-23 21:38] LABS: Albumin 3.9 g/dL (3.5-5.0); Calcium 9.4 mg/dL (8.4-10.2); Magnesium 1.5 mg/dL (1.6-2.3); Potassium 4.4 mmol/L (3.5-5.1); Total Bilirubin 0.2 mg/dL (0.2-1.3); Total Protein 6.6 g/dL (6.3-8.2)
[2018-06-23 21:48] LABS: Troponin I <0.012 ng/mL (0.000-0.034)
[2018-06-23 21:52] LABS: Creatine Kinase MB 5.1 ng/mL (0.0-2.4)
--- NOTE | 2018-06-23 22:11 | XR ---
EXAMINATION TYPE: XR chest 2V DATE OF EXAM: 06/23/2018 COMPARISON: 05/25/2018 HISTORY: Chest pain TECHNIQUE: Frontal and lateral views of the chest are obtained. FINDINGS: There is no heart failure nor confluent pneumonic infiltrate. Costophrenic angles are reji r. Heart size is normal. Bony thorax appears intact. IMPRESSION: No active cardiopulmonary disease. No change.
[2018-06-23] MEDS ORDERED: DEXAMETHASONE SOD PHOSPHATE 10 MG/ML 1 ML VIAL IV STA (22:49)
[2018-06-23 23:05] VITALS: BP 115/58; PULSE 85; TEMP 98.5
== END 2018-06-23 23:04 | disposition home or self-care (01) ==
LOC: EC 20:33
DX: M94.0 Chondrocostal junction syndrome [Tietze] (principal); E78.5 Hyperlipidemia, unspecified; I10 Essential (primary) hypertension; I25.10 Atherosclerotic heart disease of native coronary artery without angina pectoris; E11.36 Type 2 diabetes mellitus with diabetic cataract; J44.9 Chronic obstructive pulmonary disease, unspecified; M10.9 Gout, unspecified; F31.9 Bipolar disorder, unspecified; G47.30 Sleep apnea, unspecified; Z87.891 Personal history of nicotine dependence; Z79.4 Long term (current) use of insulin; Z79.51 Long term (current) use of inhaled steroids; Z79.52 Long term (current) use of systemic steroids; Z79.82 Long term (current) use of aspirin; Z79.899 Other long term (current) drug therapy; Z87.01 Personal history of pneumonia (recurrent); Z86.79 Personal history of other diseases of the circulatory system; Z99.89 Dependence on other enabling machines and devices; Z95.5 Presence of coronary angioplasty implant and graft; Z82.49 Family history of ischemic heart disease and other diseases of the circulatory system
CPT/HCPCS: 36415; 93005; 80053; 82550; 82553; 83690; 83735; 84484; 85025; 85610; 85730; 71046; 99285; 96374; J1100

== ENCOUNTER → 2018-07-20 | Outpatient (CLI) | payer OTHER ==
[2018-07-20 12:50] LABS: Albumin 4.2 g/dL (3.5-5.0); Calcium 9.9 mg/dL (8.4-10.2); Potassium 4.6 mmol/L (3.5-5.1); Total Bilirubin 0.4 mg/dL (0.2-1.3)
[2018-07-20 21:32] LABS: Hemoglobin A1C 8.1 % (4.0-6.0)
== END | disposition home or self-care (01) ==
LOC: LABWHC1 11:17
PROVIDERS: ATTEND Internal Medicine Endocrinology, Diabetes & Metabolism
DX: E78.2 Mixed hyperlipidemia (principal); E11.65 Type 2 diabetes mellitus with hyperglycemia
CPT/HCPCS: 36415; 80053; 80061; 82043; 82550; 82570; 83036

== ENCOUNTER 2018-12-14 06:45 | Day surgery (SDC) | payer MEDICARE, OTHER ==
[2018-12-10 13:20] VITALS: BMI 38.2
[~2018-12-14 06:45] MED LIST changes: -ALPRAZolam 0.25 MG TAB PO PRN; -ALPRAZolam 0.5 MG TAB PO PRN; -ASPIRIN 325 MG TAB PO STA; -ATORVASTATIN 80 MG TAB PO STA; +LACTATED RINGERS 1,000 ML IV SCH; +LIDOCAINE 1% 20 ML VIAL (10MG/ML) FOR IV START INTRADERMA PRN; -NITROGLYCERIN SL TABS 0.4 MG TAB SUBLINGUAL PRN; -SODIUM CHLORIDE 0.9% 1,000 ML in EMPTY BAG 1 BAG IV ONE
[2018-12-14 07:32] LABS: Glucose,Whole Blood 129 mg/dL (75-99)
[2018-12-14 07:33] VITALS: TEMP 97.9
[2018-12-14] MEDS ORDERED: PROPOFOL 10 MG/ML 20 ML VIAL IV ONE (08:06)
[2018-12-14] MEDS ORDERED: MIDAZOLAM 2 MG/2 ML VIAL ONE (08:06)
[2018-12-14 08:44] VITALS: RESP 18
--- NOTE | 2018-12-14 08:52 | P.PCN ---
Date of Procedure: 12/14/18 Procedure(s) Performed: Procedure: Colonoscopy and polypectomy. Preoperative diagnosis: History of polyps. Postoperative diagnosis: 1. Small to medium-sized flat polyp in the right colon removed with the snare piecemeal. 2. Diverticulosis with no evidence of acute diverticulitis or strictures. Preparation: HalfLytely prep. Sedation: Was provided by anesthesia. Brief clinical history: The patient is a 68-year-old male who in February 2016 had a colonoscopy for screening. He had a prior exam 5 years before that. At that time, I found diverticulosis and a small flat polyp in the proximal right colon across from the ileocecal valve which I biopsied. The biopsy showed benign colonic mucosa with normal crypt architecture. His preparation was poor at that time and the patient is returned today for screening. He has no abdominal pains, bleeding or anemia. Procedure: With the patient on his left lateral decubitus position and after informed consent and adequate sedation, the perianal area was inspected and it did not show any fissures or fistulas. There were no masses felt on digital rectal examination. The Olympus CFH 190L video colonoscope was then inserted in the rectum in the usual fashion and advanced to the cecum. The preparation was less than ideal and there was some fecal material that I could not wash off or suction totally. In the right colon, and across from the ileocecal valve, there was a small to medium-sized polyp corresponding to the polyp I biopsied previously. I was able to remove it with the snare piecemeal and recovere it by suction. There were multiple diverticular orifices seen as previously described mostly on the left side with some on the right side with no evidence of acute diverticulitis or strictures. The mucosa appeared healthy. I retroflexed the endoscope in the rectum before the endoscope was withdrawn. The patient tolerated the procedure well. Plan: The patient was reassured. Will await pathology results. I anticipate repeating this exam in 2-3 years if the pathology shows adenoma otherwise in 3- 5 years. He will follow up with you as planned.
[2018-12-14 09:01] LABS: Glucose,Whole Blood 125 mg/dL (75-99)
[2018-12-14 09:15] VITALS: BP 146/75; PULSE 74
== END 2018-12-14 09:44 | disposition home or self-care (01) ==
LOC: ORWHC2ENDO 06:45
DX: Z12.11 Encounter for screening for malignant neoplasm of colon (principal); Z86.010 Personal history of colon polyps; K57.90 Diverticulosis of intestine, part unspecified, without perforation or abscess without bleeding; D12.2 Benign neoplasm of ascending colon; K57.30 Diverticulosis of large intestine without perforation or abscess without bleeding; I25.10 Atherosclerotic heart disease of native coronary artery without angina pectoris; I10 Essential (primary) hypertension; I48.91 Unspecified atrial fibrillation; E11.9 Type 2 diabetes mellitus without complications; E78.5 Hyperlipidemia, unspecified; G47.33 Obstructive sleep apnea (adult) (pediatric); Z87.442 Personal history of urinary calculi; Z87.891 Personal history of nicotine dependence; Z79.02 Long term (current) use of antithrombotics/antiplatelets; Z79.4 Long term (current) use of insulin; Z79.52 Long term (current) use of systemic steroids; Z79.899 Other long term (current) drug therapy
CPT/HCPCS: 88305; 45385; J2250; J2704

== ENCOUNTER 2018-12-26 10:08 | Inpatient (IN) | payer OTHER, MEDICARE ==
[2018-12-26] MEDS ORDERED: SODIUM CHLORIDE 0.9% 500 ML 500 ML IV STA (10:59)
[2018-12-26] MEDS ORDERED: PANTOPRAZOLE 40 MG/10 ML VIAL IVP STA (11:26)
[2018-12-26] MEDS ORDERED: SODIUM CHLORIDE 0.9% 500 ML 500 ML IV ONE (11:27)
[2018-12-26] MEDS ORDERED: SODIUM CHLORIDE 0.9% 1,000 ML IV ONE (11:40)
--- NOTE | 2018-12-26 11:41 | ED ---
GI Bleed HPI - General Chief complaint: GI Bleed Stated complaint: Blood in stool Source: patient Mode of arrival: wheelchair Limitations: no limitations - History of Present Illness Initial comments: 68-year-old male with history of myocardial infarction status post 6 stent placement on brillenta, atrial fibrillation, recent colonoscopy performed [address] Marcum with polyp removal presenting today for cc of bloody diarrhea. Patient states about 2 hours prior to presentation today began. Seeing diffuse, watery bloody diarrhea. He states it is bright red blood. Patient states he doesn't have severe abdominal pain and only mild cramping with diarrhea. Patient states he's had additional episode just prior to history taking, I was able to see this in the toilet, large amount of bright red blood. Remaining review of systems negative patient denies any chest pain, dyspnea, dyspnea on exertion, abdominal pain, nausea, vomiting, hemoptysis, history of esophageal varices, fever, chills, back pain, numbness or tingling, dysuria or hematuria, constipation, headaches or visual changes, or any other complaints. Upon arrival pt is ambulatory, appearing well. VS revealed BP on the lower aspect of normal. Two IV lines establishes, IVF started. HR WNL. - Related Data Home Medications Medication Instructions Recorded Confirmed ARIPiprazole [Abilify] 7.5 mg PO HS 11/03/14 12/26/18 Citalopram Hydrobromide 40 mg PO DAILY 11/03/14 12/26/18 [Citalopram HBr] Ascorbic Acid [Vitamin C] 500 mg PO DAILY 01/17/16 12/26/18 Cholecalciferol [Vitamin D3] 2,000 unit PO BID 01/17/16 12/26/18 Speed-3 Fatty Acids/Fish Oil [Fish 1,000 mg PO DAILY 07/02/16 12/26/18 Oil 1,000 mg Softgel] traZODone HCL 150 mg PO HS 07/02/16 12/26/18 Aspirin EC [Ecotrin Low Dose] 81 mg PO DAILY 11/20/16 12/26/18 Colchicine 0.6 mg PO DAILY 11/20/16 12/26/18 Montelukast [Singulair] 10 mg PO HS 11/20/16 12/26/18 Albuterol Sulfate [Proventil Hfa] 2 puff INHALATION RT-Q4H PRN 02/19/17 12/26/18 Budesonide/Formoterol Fumarate 2 puff INHALATION RT-BID 02/19/17 12/26/18 [Symbicort 160-4.5 Mcg Inhaler] Metoprolol Tartrate [Lopressor] 25 mg PO BID 02/19/17 12/26/18 Ferrous Sulfate [Feosol] 325 mg PO BID 04/29/17 12/26/18 Lisinopril [Zestril] 10 mg PO BID 04/29/17 12/26/18 INSULIN ASPART (NovoLOG) [NovoLOG 12 unit SQ AC-TID 07/27/17 12/26/18 (formulary)] Bisoprolol [Zebeta] 5 mg PO DAILY 08/31/17 12/26/18 Insulin Detemir (Levemir) [Levemir] 83 unit SQ BID 11/06/17 12/26/18 Saxagliptin HCl [Onglyza] 5 mg PO HS 11/06/17 12/26/18 metFORMIN HCL 1,000 mg PO BID 09/10/18 12/26/18 Evolocumab [Repatha Syringe] 140 mg SQ Q14D 12/10/18 12/26/18 Magnesium Oxide 400 mg PO BID 12/10/18 12/26/18 Previous Rx's Medication Instructions Recorded Ticagrelor [Brilinta] 90 mg PO BID #60 tab 08/15/17 Isosorbide Mononitrate ER [Imdur] 30 mg PO HS #30 tab.er.24h 09/01/17 Allergies Allergy/AdvReac Type Severity Reaction Status Date / Time No Known Allergies Allergy Verified 12/26/18 12:16 Review of Systems ROS Statement: Those systems with pertinent positive or pertinent negative responses have been documented in the HPI. ROS Other: All systems not noted in ROS Statement are negative. Past Medical History Past Medical History: Atrial Fibrillation, Coronary Artery Disease (CAD), Chest Pain / Angina, COPD, Diabetes Mellitus, Hyperlipidemia, Hypertension, Sleep Apnea/CPAP/BIPAP Additional Past Medical History / Comment(s): USES CPAP. HX KIDNEY STONES, GOUT , BIPOLAR DEPRESSION. LOWER BRIDGE, gall stone, History of Any Multi-Drug Resistant Organisms: None Reported Past Surgical History: Heart Catheterization With Stent, Hernia Repair, Orthopedic Surgery, Tonsillectomy Additional Past Surgical History / Comment(s): Pilonidal cyst. EXC ABDI CATARACTS. Bilateral Knee Sx. LITHOTRIPSY. COLONOSCOPY. 05-15-16 at [facility] had heart cath w/1 stent, 05-21-16 had 2 more stents - another stent placed 06/26, total of 6 stents. LASIK SX Past Anesthesia/Blood Transfusion Reactions: No Reported Reaction Additional Past Anesthesia/Blood Transfusion Reaction / Comment(s): no hx blood transfusion Date of Last Stent Placement:: 06/25/2017 Past Psychological History: Bipolar, Depression Smoking Status: Former smoker - Past Family History Mother Family Medical History: Coronary Artery Disease (CAD) Father Family Medical History: Coronary Artery Disease (CAD) Additional Family Medical History / Comment(s): emphysema General Exam - General Exam Comments Initial Comments: General: The patient is awake and alert, in no distress. Mild pallor noted. Eye: +3 mm pupils are equal, round and reactive to light, extra-ocular movements are intact. No nystagmus. There is normal conjunctiva bilaterally. No signs of icterus. Ears, nose, mouth and throat: There are moist mucous membranes and no oral lesions. Neck: The neck is supple, there is no tenderness or JVD. Cardiovascular: There is a regular rate and rhythm. No murmur, rub or gallop is appreciated. Respiratory: Lungs are clear to auscultation, respirations are non-labored, breath sounds are equal. No wheezes, stridor, rales, or rhonchi. Gastrointestinal: Obese, non-tender abdomen without masses or organomegaly noted. There is no rebound or guarding present. No CVA tenderness. Bowel sounds are unremarkable. Gross red blood per rectum. Musculoskeletal: Normal ROM, no tenderness. Strength 5/5. Sensation intact. Pulses equal bilaterally 2+. Neurological: A&O x 3. CN II-XII intact, There are no obvious motor or sensory deficits. Coordination appears grossly intact. Speech is normal. Skin: Skin is warm and dry and no rashes or lesions are noted. No LE edema. Psychiatric: Cooperative, appropriate mood & affect, normal judgment. Limitations: no limitations Course Vital Signs 12/26/18 12/26/18 12/26/18 10:36 12:00 12:20 Temperature 97.9 F Pulse Rate 72 70 68 Respiratory 18 16 16 Rate Blood Pressure 99/52 96/56 108/55 O2 Sat by Pulse 97 94 L 95 Oximetry 12/26/18 13:41 Temperature 97.4 F L Pulse Rate 65 Respiratory 18 Rate Blood Pressure 99/59 O2 Sat by Pulse 98 Oximetry - Reevaluation(s) Reevaluation #1: Pt had an additional large BM of jewell red blood with clots 12/26/18 Medical Decision Making - Medical Decision Making 68 yo present for GI bleed. I had seen the gross red blood in stool upon patient arrival, large amount. Pt has two IV lines established and IVF. Pt BP remained stable throughout time in emergency department, pt HgB 10. Pt CT revealed inflammation of the cecum. No noted free air. Pt is on brillenta, novel anticoagulant which will not be reflected throught PT/PTT/INR which are WNL. BUN elevated. Mild elevation of potassium. EKG WNL. Troponin (-). I did discuss the case with Dr. Carreno, who spoke with attending provider Dr. Calle. Accepting admission. Admission upgraded to ICU. - Lab Data Result diagrams: 12/26/18 11:50 12/26/18 11:50 Lab Results 12/26/18 12/26/18 12/26/18 Range/Units 11:50 11:50 11:50 WBC 6.8 (3.8-10.6) k/uL RBC 3.40 L (4.30-5.90) m/uL Hgb 10.0 L (13.0-17.5) gm/dL Hct 30.6 L (39.0-53.0) % MCV 90.0 (80.0-100.0) fL MCH 29.4 (25.0-35.0) pg MCHC 32.7 (31.0-37.0) g/dL RDW 15.0 (11.5-15.5) % Plt Count 263 (150-450) k/uL Neutrophils % 68 % Lymphocytes % 18 % Monocytes % 8 % Eosinophils % 3 % Basophils % 1 % Neutrophils # 4.6 (1.3-7.7) k/uL Lymphocytes # 1.2 (1.0-4.8) k/uL Monocytes # 0.5 (0-1.0) k/uL Eosinophils # 0.2 (0-0.7) k/uL Basophils # 0.1 (0-0.2) k/uL PT (9.0-12.0) sec INR (<1.2) APTT (22.0-30.0) sec Sodium 137 (137-145) mmol/L Potassium 5.3 H (3.5-5.1) mmol/L Chloride 108 H (98-107) mmol/L Carbon Dioxide 21 L (22-30) mmol/L Anion Gap 8 mmol/L BUN 27 H (9-20) mg/dL Creatinine 1.23 (0.66-1.25) mg/dL Est GFR (CKD-EPI)AfAm 70 (>60 ml/min/1.73 sqM) Est GFR (CKD-EPI)NonAf 60 (>60 ml/min/1.73 sqM) Glucose 223 H (74-99) mg/dL Plasma Lactic Acid Donnell (0.7-2.0) mmol/L Calcium 8.7 (8.4-10.2) mg/dL Total Bilirubin 0.3 (0.2-1.3) mg/dL AST 46 (17-59) U/L ALT 68 (21-72) U/L Alkaline Phosphatase 56 (38-126) U/L Troponin I (0.000-0.034) ng/mL Total Protein 5.6 L (6.3-8.2) g/dL Albumin 3.3 L (3.5-5.0) g/dL Blood Type O Positive Blood Type Confirm Blood Type Recheck CABO Indicated Antibody Screen NEGATIVE Spec Expiration Date 12/29/2018 - 234912/26/18 12/26/18 12/26/18 Range/Units 11:50 11:50 11:50 WBC (3.8-10.6) k/uL RBC (4.30-5.90) m/uL Hgb (13.0-17.5) gm/dL Hct (39.0-53.0) % MCV (80.0-100.0) fL MCH (25.0-35.0) pg MCHC (31.0-37.0) g/dL RDW (11.5-15.5) % Plt Count (150-450) k/uL Neutrophils % % Lymphocytes % % Monocytes % % Eosinophils % % Basophils % % Neutrophils # (1.3-7.7) k/uL Lymphocytes # (1.0-4.8) k/uL Monocytes # (0-1.0) k/uL Eosinophils # (0-0.7) k/uL Basophils # (0-0.2) k/uL PT 10.4 (9.0-12.0) sec INR 1.0 (<1.2) APTT 22.9 (22.0-30.0) sec Sodium (137-145) mmol/L Potassium (3.5-5.1) mmol/L Chloride (98-107) mmol/L Carbon Dioxide (22-30) mmol/L Anion Gap mmol/L BUN (9-20) mg/dL Creatinine (0.66-1.25) mg/dL Est GFR (CKD-EPI)AfAm (>60 ml/min/1.73 sqM) Est GFR (CKD-EPI)NonAf (>60 ml/min/1.73 sqM) Glucose (74-99) mg/dL Plasma Lactic Acid Donnell 2.8 H* (0.7-2.0) mmol/L Calcium (8.4-10.2) mg/dL Total Bilirubin (0.2-1.3) mg/dL AST (17-59) U/L ALT (21-72) U/L Alkaline Phosphatase (38-126) U/L Troponin I <0.012 (0.000-0.034) ng/mL Total Protein (6.3-8.2) g/dL Albumin (3.5-5.0) g/dL Blood Type Blood Type Confirm Blood Type Recheck Antibody Screen Spec Expiration Date 12/26/18 Range/Units 12:00 WBC (3.8-10.6) k/uL RBC (4.30-5.90) m/uL Hgb (13.0-17.5) gm/dL Hct (39.0-53.0) % MCV (80.0-100.0) fL MCH (25.0-35.0) pg MCHC (31.0-37.0) g/dL RDW (11.5-15.5) % Plt Count (150-450) k/uL Neutrophils % % Lymphocytes % % Monocytes % % Eosinophils % % Basophils % % Neutrophils # (1.3-7.7) k/uL Lymphocytes # (1.0-4.8) k/uL Monocytes # (0-1.0) k/uL Eosinophils # (0-0.7) k/uL Basophils # (0-0.2) k/uL PT (9.0-12.0) sec INR (<1.2) APTT (22.0-30.0) sec Sodium (137-145) mmol/L Potassium (3.5-5.1) mmol/L Chloride (98-107) mmol/L Carbon Dioxide (22-30) mmol/L Anion Gap mmol/L BUN (9-20) mg/dL Creatinine (0.66-1.25) mg/dL Est GFR (CKD-EPI)AfAm (>60 ml/min/1.73 sqM) Est GFR (CKD-EPI)NonAf (>60 ml/min/1.73 sqM) Glucose (74-99) mg/dL Plasma Lactic Acid Donnell (0.7-2.0) mmol/L Calcium (8.4-10.2) mg/dL Total Bilirubin (0.2-1.3) mg/dL AST (17-59) U/L ALT (21-72) U/L Alkaline Phosphatase (38-126) U/L Troponin I (0.000-0.034) ng/mL Total Protein (6.3-8.2) g/dL Albumin (3.5-5.0) g/dL Blood Type Blood Type Confirm O Positive Blood Type Recheck Antibody Screen Spec Expiration Date Disposition Clinical Impression: GI bleed, Elevated lactic acid level, Elevated BUN Disposition: ADMITTED IP TO THIS [facility] Condition: Stable Is patient prescribed a controlled substance at d/c from ED?: No Time of Disposition: 12:36 Decision to Admit Reason: Admit from EC Decision Date: 12/26/18 Decision Time: 12:36
[2018-12-26 12:06] LABS: Basophils # (A) 0.1 k/uL (0-0.2); Basophils % (A) 1 %; Eosinophils # (A) 0.2 k/uL (0-0.7); Eosinophils % (A) 3 %; HCT 30.6 % (39.0-53.0); Lymphocytes # (A) 1.2 k/uL (1.0-4.8); Lymphocytes % (A) 18 %; MCH 29.4 pg (25.0-35.0); MCHC 32.7 g/dL (31.0-37.0); Mean Platelet Volume 6.7; Monocytes # (A) 0.5 k/uL (0-1.0); Monocytes % (A) 8 %; Neutrophils # (A) 4.6 k/uL (1.3-7.7); Neutrophils % (A) 68 %; Platelet Count 263 k/uL (150-450); WBC 6.8 k/uL (3.8-10.6)
[2018-12-26 12:17] LABS: Albumin 3.3 g/dL (3.5-5.0); Calcium 8.7 mg/dL (8.4-10.2); Partial Thromboplastin Time 22.9 sec (22.0-30.0); Potassium 5.3 mmol/L (3.5-5.1); Prothrombin Time 10.4 sec (9.0-12.0); Total Bilirubin 0.3 mg/dL (0.2-1.3); Total Protein 5.6 g/dL (6.3-8.2)
[2018-12-26] MEDS ORDERED: NALOXONE 0.4 MG/ML 1 ML VIAL IV PRN (13:18)
--- NOTE | 2018-12-26 13:58 | CT ---
EXAMINATION TYPE: CT abdomen pelvis w con DATE OF EXAM: 12/26/2018 COMPARISON: Pain INDICATION: Blood in stool DLP: 2131 mGycm, Automated exposure control for dose reduction was used. CONTRAST: 100 ml mL of Isovue 300. Study performed without Oral Contrast TECHNIQUE: Axial images were obtained from above the diaphragm to the pubic rami in the axial plane a t 5 mm thick sections. Reconstructed images are reviewed on the computer in the coronal plane. FINDINGS: Limited CT sections are obtained the lung bases. The lung bases are clear. Minimal right pleural ef fusion is present. Coronary artery calcification is noted. CT ABDOMEN: Liver: Some moderate fatty infiltration to the liver appears to be present. Spleen: Normal Pancreas: Normal Adrenal glands: The adrenal glands are normal. Gallbladder: Normal Kidneys: No masses are evident. No hydronephrosis is present. No cysts are present. A nonobstructi ng posterior right mid renal stone measuring 0.3 cm is present. Punctate nonobstructing renal stone t he lateral to inferior pole measuring 0.3 cm is present. There is a nonobstructing inferior pole righ t renal stone with adjacent punctate calcification measuring 0.4 cm. Aorta: Vascular calcification is within the aorta. Inferior vena cava: Normal. CT PELVIS: There appears to be diffuse thickening of the cecum. Correlate for typhlitis. Terminal ileum appears unremarkable. There is some scattered diverticuli within the distal sigmoid colon. No acute diverticu litis is evident. Studies performed without oral contrast limiting bowel evaluation. Appendix: Not identified. No suspicious adjacent inflammatory changes or dilated tubular structures a re evident. Urinary bladder: Normal. Genitourinary structures: Prostate is unremarkable. Osseous structures: No suspicious lytic or sclerotic lesions. IMPRESSIONS: 1. Nonobstructing right renal stones. No hydronephrosis or hydroureter is evident. 2. Diffuse thickening through the cecum. Correlate for typhlitis. Underlying mass is not excluded wit h lack of oral contrast limiting the evaluation. However this is considered unlikely given the more n ormal appearance of 11/24/2017. 3. Nonvisualization of the appendix. Clinical management of any suspected appendicitis would be recom mended. Correlate with the patient's history. 4. Moderate fatty infiltration liver. 5. Minimal right pleural effusion
[2018-12-26 14:38] LABS: Glucose,Whole Blood 194 mg/dL (75-99)
[2018-12-26 15:00] VITALS: BMI 36.7
[2018-12-26 15:09] LABS: Basophils % (A) 1 %; Eosinophils # (A) 0.1 k/uL (0-0.7); Eosinophils % (A) 2 %; HCT 24.8 % (39.0-53.0); Hypochromasia Slight; Lymphocytes % (A) 14 %; MCH 30.8 pg (25.0-35.0); MCHC 33.6 g/dL (31.0-37.0); MCV 91.7 fL (80.0-100.0); Mean Platelet Volume 6.1; Monocytes # (A) 0.4 k/uL (0-1.0); Monocytes % (A) 5 %; Neutrophils # (A) 5.5 k/uL (1.3-7.7); Neutrophils % (A) 76 %; Platelet Count 233 k/uL (150-450); RBC 2.71 m/uL (4.30-5.90); RDW 14.9 % (11.5-15.5); WBC 7.2 k/uL (3.8-10.6)
[2018-12-26 15:27] LABS: HGB 8.4 gm/dL (13.0-17.5)
[2018-12-26] MEDS ORDERED: ALPRAZolam 0.25 MG TAB PO PRN (15:50)
[2018-12-26] MEDS ORDERED: TEMAZEPAM 15 MG CAP PO PRN (15:50)
[2018-12-26] MEDS ORDERED: HYDROmorphone 0.5 MG/0.5 ML SYRINGE IVP PRN (15:50)
[2018-12-26] MEDS ORDERED: INSULIN ASPART (NovoLOG) 100 UNIT/ML VIAL SQ SCH (16:00)
--- NOTE | 2018-12-26 16:08 | P.CNPUL ---
History of Present Illness Consult date: 12/26/18 Chief complaint: GI bleeding History of present illness: 68-year-old male patient presented to ED with GI bleed. The patient was having maroon colored stools. Note that the patient had a colonoscopy approximately 2 weeks ago that was done by Dr. Marcum and the colonoscopy showed a small to medium size flat polyp in the right colon that was removed by snare piecemeal methods. Diverticulosis without evidence of acute diverticulitis or strictures was also seen. The auto itself was benign. The polyp was a tubular adenoma. The patient himself was doing well till as morning when he started having maroon color stool, the patient had one bout at home and 2 bouts in the emergency department. This was bright red blood/maroon in color. The patient also had abdominal pain and cramping. He did not have any hematemesis. No melanotic stools. No history of any constipation. No fever chills or night sweats. He came into the ED and his serum level was 10. The patient was started on IV fluids and the patient was already given 2 L of IV fluids in the form of normal saline. Currently is on a maintenance of 0.9 at the rate of 75 mL an hour. His hemoglobin currently is at 10.0. Correlation profile is within normal limits. GI is a 27 with a creatinine of 1.2. Lactic acid is at 2.8. CAT scan of the abdomen was also done and showed a nonobstructive right renal stone without any evidence of hydronephrosis. There was diffuse thickening of the cecum and there was moderate fatty infiltration of the liver with a minimal right-sided pleural effusion. The patient got chest to the intensive care unit. He is afebrile. The patient is known to have coronary artery disease. The patient has had previous myocardial infarction stenting and the patient is on a combination of aspirin and Brilinta. Review of Systems Constitutional: Denies chills, Denies fever Eyes: denies as per HPI, denies blurred vision, denies bulging eye, denies decreased vision, denies diplopia, denies discharge, denies dry eye, denies irritation, denies itching, denies pain, denies photophobia, denies loss of peripheral vision, denies loss of vision, denies tunnel vision/blind spots Ears: deny: decreased hearing, ear discharge, earache, tinnitus Past Medical History Past Medical History: Atrial Fibrillation, Coronary Artery Disease (CAD), COPD, Diabetes Mellitus, Hyperlipidemia, Hypertension, Sleep Apnea/CPAP/BIPAP Additional Past Medical History / Comment(s): Obstructive sleep apnea and the patient uses a CPAP. HX KIDNEY STONES, GOUT, BIPOLAR DEPRESSION., gall stone, coronary artery disease him a paroxysmal atrial fibrillation, diabetes mellitus , diverticulosis, colonic polyps, depression, attention, hyperlipidemia History of Any Multi-Drug Resistant Organisms: None Reported Past Surgical History: Heart Catheterization With Stent, Hernia Repair, Orthopedic Surgery, Tonsillectomy Additional Past Surgical History / Comment(s): Pilonidal cyst. EXC ABDI CATARACTS. Bilateral Knee Sx. LITHOTRIPSY. COLONOSCOPY. 05-15-16 at [facility] had heart cath w/1 stent, 05-21-16 had 2 more stents - another stent placed 06/26, total of 6 stents. LASIK SX Past Anesthesia/Blood Transfusion Reactions: No Reported Reaction Additional Past Anesthesia/Blood Transfusion Reaction / Comment(s): no hx blood transfusion Date of Last Stent Placement:: 06/25/2017 Past Psychological History: Bipolar, Depression Additional Psychological History / Comment(s): pt admitted to 5 past suicide attempts. pt lives at home with his common law ekaterina. Smoking Status: Former smoker Past Alcohol Use History: None Reported Additional Past Alcohol Use History / Comment(s): started smoking at age 16(1965 ) stopped at age 65() smoked, 1ppd. Past Drug Use History: None Reported - Past Family History Mother Family Medical History: Coronary Artery Disease (CAD) Father Family Medical History: Coronary Artery Disease (CAD) Additional Family Medical History / Comment(s): emphysema Medications and Allergies Home Medications Medication Instructions Recorded Confirmed Type ARIPiprazole [Abilify] 7.5 mg PO HS 11/03/14 12/26/18 History Citalopram Hydrobromide 40 mg PO DAILY 11/03/14 12/26/18 History [Citalopram HBr] Ascorbic Acid [Vitamin C] 500 mg PO DAILY 01/17/16 12/26/18 History Cholecalciferol [Vitamin D3] 2,000 unit PO BID 01/17/16 12/26/18 History Kindred-3 Fatty Acids/Fish Oil [Fish 1,000 mg PO DAILY 07/02/16 12/26/18 History Oil 1,000 mg Softgel] traZODone HCL 150 mg PO HS 07/02/16 12/26/18 History Aspirin EC [Ecotrin Low Dose] 81 mg PO DAILY 11/20/16 12/26/18 History Colchicine 0.6 mg PO DAILY 11/20/16 12/26/18 History Montelukast [Singulair] 10 mg PO HS 11/20/16 12/26/18 History Albuterol Sulfate [Proventil Hfa] 2 puff INHALATION RT-Q4H PRN 02/19/17 History Budesonide/Formoterol Fumarate 2 puff INHALATION RT-BID 02/19/17 12/26/18 History [Symbicort 160-4.5 Mcg Inhaler] Metoprolol Tartrate [Lopressor] 25 mg PO BID 02/19/17 12/26/18 History Ferrous Sulfate [Feosol] 325 mg PO BID 04/29/17 12/26/18 History Lisinopril [Zestril] 10 mg PO BID 04/29/17 12/26/18 History INSULIN ASPART (NovoLOG) [NovoLOG 12 unit SQ AC-TID 07/27/17 12/26/18 History (formulary)] Ticagrelor [Brilinta] 90 mg PO BID #60 tab 08/15/17 12/26/18 Rx Bisoprolol [Zebeta] 5 mg PO DAILY 08/31/17 12/26/18 History Isosorbide Mononitrate ER [Imdur] 30 mg PO HS #30 tab.er.24h 09/01/17 12/26/18 Rx Insulin Detemir (Levemir) [Levemir] 83 unit SQ BID 11/06/17 12/26/18 History Saxagliptin HCl [Onglyza] 5 mg PO HS 11/06/17 12/26/18 History metFORMIN HCL 1,000 mg PO BID 09/10/18 12/26/18 History Evolocumab [Repatha Syringe] 140 mg SQ Q14D 12/10/18 12/26/18 History Magnesium Oxide 400 mg PO BID 12/10/18 12/26/18 History Allergies Allergy/AdvReac Type Severity Reaction Status Date / Time No Known Allergies Allergy Verified 12/26/18 12:16 Physical Exam Vitals: Vital Signs Temp Pulse Pulse Resp BP BP Pulse Ox 12/26/18 14:37 98.9 F 69 16 120/58 95 12/26/18 14:16 97.6 F 68 18 109/56 95 12/26/18 13:41 97.4 F L 65 18 99/59 98 12/26/18 12:20 68 16 108/55 95 12/26/18 12:00 70 16 96/56 94 L 12/26/18 10:36 97.9 F 72 18 99/52 97 Intake and Output 12/26/18 12/26/18 12/26/18 06:59 14:59 22:59 Other: Weight 120.656 kg General: The patient is awake and alert, in no distress. Mild pallor noted. Eye: +3 mm pupils are equal, round and reactive to light, extra-ocular movements are intact. No nystagmus. There is normal conjunctiva bilaterally. No signs of icterus. Ears, nose, mouth and throat: There are moist mucous membranes and no oral lesions. Neck: The neck is supple, there is no tenderness or JVD. Cardiovascular: There is a regular rate and rhythm. No murmur, rub or gallop is appreciated. Respiratory: Lungs are clear to auscultation, respirations are non-labored, breath sounds are equal. No wheezes, stridor, rales, or rhonchi. Gastrointestinal: Obese, non-tender abdomen without masses or organomegaly noted. There is no rebound or guarding present. No CVA tenderness. Bowel sounds are unremarkable. Gross red blood per rectum. Musculoskeletal: Normal ROM, no tenderness. Strength 5/5. Sensation intact. Pulses equal bilaterally 2+. Neurological: A&O x 3. CN II-XII intact, There are no obvious motor or sensory deficits. Coordination appears grossly intact. Speech is normal. Skin: Skin is warm and dry and no rashes or lesions are noted. No LE edema. Psychiatric: Cooperative, appropriate mood & affect, normal judgment. Results - Laboratory Findings CBC and BMP: 12/26/18 11:50 12/26/18 11:50 PT/INR, D-dimer PT 10.4 sec (9.0-12.0) 12/26/18 11:50 INR 1.0 (<1.2) 12/26/18 11:50 Abnormal lab findings: Abnormal Labs 12/26/18 12/26/18 12/26/18 11:50 11:50 11:50 RBC 3.40 L Hgb 10.0 L Hct 30.6 L Potassium 5.3 H Chloride 108 H Carbon Dioxide 21 L BUN 27 H Glucose 223 H POC Glucose (mg/dL) Plasma Lactic Acid Donnell 2.8 H* Total Protein 5.6 L Albumin 3.3 L 12/26/18 14:34 RBC Hgb Hct Potassium Chloride Carbon Dioxide BUN Glucose POC Glucose (mg/dL) 194 H Plasma Lactic Acid Donnell Total Protein Albumin Assessment and Plan Plan: Assessment 1 acute lower GI bleeding post colonoscopy and resection of a colonic polyp that do not to be a tubular adenoma. The patient presented with lower GI bleed and the CAT scan of the abdomen and pelvis showed inflammatory changes involving the cecum, could be underlying see colitis/typhalitis post endoscopy and biopsy. Hemodynamically stable. Hemoglobin stable above 10. Note that the patient was also on antiplatelet agents for his underlying coronary artery disease utilizing a combination of aspirin and Brillinta 2 coronary artery disease, post coronary stenting 3 paroxysmal atrial fibrillation currently in sinus 4 diabetes mellitus 5 hypertension 6 hyperlipidemia 7 obstructive sleep apnea 8 nephrolithiasis 9 gout 10 bipolar disorder/depression 11 history of gallstones 12 COPD maintained on Symbicort on outpatient basis currently on room air oxygen Plan Keep the patient by mouth for now. Continue IV fluids of normal saline at rate of 75 mL an hour. His was resuscitated. Monitor hemoglobin no pain, and age every 6 hours. Put the patient IV Zosyn for any inflammatory/infectious colitis at the level of the cecum. Hold aspirin. We'll hold Brilinta. Consult GI. Put the patient on a cyclic coverage with NovoLog. As of the psychiatric medications could be taken with a sip of water. Stop antihypertensive medication. Keep in ICU for 24 hours pending GI consultation. Type and cross. No need for any blood transfusion at this point in time. May need a surgical consultation if the GI bleed continues. We'll follow.
[2018-12-26 16:20] LABS: Glucose,Whole Blood 211 mg/dL (75-99)
[2018-12-26] MEDS: INSULIN ASPART (NovoLOG) 100 UNIT/ML VIAL SQ SCH ×2 (16:43→21:04)
--- NOTE | 2018-12-26 16:45 | HP ---
HISTORY AND PHYSICAL DATE OF SERVICE: 12/26/2018 CHIEF COMPLAINT: GI bleed. HISTORY OF PRESENT ILLNESS: This 68-year-old gentleman with a past medical history of fibrillation, CAD, COPD, diabetes, hypertension, hyperlipidemia, sleep apnea, obstructive sleep apnea, history of CAD, stent, bipolar depression being followed by Dr. Fierro in the outpatient setting, had multiple stents up to 6 by Cardiology. The patient recently had a colonoscopy about [address] Marcum and during the colonoscopy, the patient was found to have a small to medium flat polyp in the right colon removed with snare piecemeal and diverticulosis also noted. Today the patient woke up and the patient was noted to have diffuse watery bleed diarrhea and bright red blood and some clots are noted. Multiple was noted. The patient came to [facility] and admitted for further evaluation and treatment. The current hemoglobin: The patient is monitored in ICU. Current hemoglobin was initially 10, but currently is 8.4. Lactic acid is 2.1, and the patient is also on aspirin 81 mg p.o. daily and as well as Brilinta 90 mg p.o. b.i.d. There is no history of fever, rigors. No history of headache, loss of consciousness, seizures at this time. PAST MEDICAL HISTORY: History of atrial fibrillation, CAD, stent, COPD, diabetes, hypertension, hyperlipidemia, history of obstructive sleep apnea, history of snare, polypectomy recently. MEDICATIONS: Home medications are prior to admission include: 1. Zebeta 5 mg p.o. daily. 2. Trazodone 150 mg q.h.s. 3. Onglyza 5 mg q.h.s. 4. Vitamin D3 2000 b.i.d. 5. Symbicort 160/4.5 two puffs b.i.d. 6. Vitamin C 500 mg b.i.d. 7. ProAir HFA 2 puffs q.4h p.r.n. 8. Metformin 1000 mg p.o. b.i.d. 9. Singular 10 mg q.h.s. 10.Lopressor 25 mg b.i.d. 11.Magnesium oxide 400 mg p.o. b.i.d. 12.Zestril 10 mg p.o. b.i.d. 13.Imdur 30 mg p.o. q.h.s. 14.NovoLog 12 units a.c. t.i.d. 15.Repatha 140 mg subcu. 16.Ecotrin 81 mg. 17.Fish oil 1000 mg p.o. daily. 18.Levemir units subcu b.i.d. 19.Iron sulfate 320 mg p.o. b.i.d. 20.Colchicine 0.6 p.o. daily. 21.Brilinta 80 mg p.o. b.i.d. 22.Celexa 40 mg p.o. daily. 23.Abilify 7.5 mg q.h.s. ALLERGIES: None. FAMILY HISTORY: History of CAD, emphysema in the family. SOCIAL HISTORY: Previous history of smoking. No history of smoking or alcohol. REVIEW OF SYSTEMS: ENT: No diminished vision. No diminished hearing. CARDIOVASCULAR: As mentioned earlier. RESPIRATORY: As mentioned earlier. GI as mentioned earlier. no dysuria. CENTRAL NERVOUS SYSTEM: No numbness or weakness. ALLERGY/IMMUNOLOGY: No asthma or hayfever. MUSCULOSKELETAL: As mentioned earlier. HEMATOLOGY/ONCOLOGY: No history of anemia. ENDOCRINE: As mentioned earlier. CONSTITUTIONAL: As mentioned earlier. Dermatology: Negative. Rheumatology: Negative. Psychiatry: As mentioned earlier. PHYSICAL EXAMINATION: Pulse 69, pressure 120/50, respiration 16, temperature 98.9, pulse ox 94% on room air. HEENT: Conjunctivae pale. Oral mucosa moist. Neck is no jugular venous distention. No carotid bruit. No lymph node enlargement. Cardiovascular system: S1, S2 muffled. Respiration: Breath sounds diminished in the bases. Few scattered rhonchi. No crackles. ABDOMEN: Soft, obese, nontender. Legs no edema. No swelling. NERVOUS SYSTEM: Higher functions as mentioned earlier. Moves all four extremities. No focal deficits. Lymphatics: No lymph nodes palpable in the neck, axillae or groin. Joints: No active deforming arthropathy. LAB STUDIES: WBC 11.7, hemoglobin is 8.4, potassium 5.3, CO2 is 21, glucose 194. Lactic acid 2.8, albumin 3.2. CT scan of the abdomen and pelvis showed nonobstructing renal stones and diffuse thickening of the cecum. masses not excluded. ASSESSMENT: 1. Acute lower gastrointestinal bleeding with acute blood loss anemia, possibly secondary from polypectomy site. Rule out typhlitis, ischemic colitis. 2. History of coronary artery disease, stents, multiple x6 times. 3. Hyperkalemia, mild. 4. History of atrial fibrillation. 5. Chronic obstructive pulmonary disease. 6. Diabetes mellitus type 2. 7. Hyperlipidemia. 8. Hypertension. 9. Obstructive sleep apnea. 10.Obesity with body mass index 38.2. 11.Kidney stones. 12.History of gout. 13.History of bipolar. 14.History of depression. 15.History of suicidal attempts in the past. 16.Remote history of nicotine dependence. RECOMMENDATIONS AND DISCUSSION: This 68-year-old gentleman who presented with multiple complex medical issues, we will monitor the patient closely. Continue the medication. Continue with close monitoring. Otherwise, I would recommend a transfusion. I discussed with Dr. Olsen who will be following the patient for ICU management. Otherwise, resume the home medications. Hold antiplatelet agents. I would also recommend Cardiology consultation as well as cardiac workup. Prognosis guarded because of multiple complex medical issues. Further recommendations to follow. A copy of dictation being forwarded to Dr. Fierro who is the primary care physician. MMLINDYL / MICAELAN: [id number] / MTDD
[2018-12-26] MEDS: PIPERACILLIN-TAZOBACTAM 3.375 GM in SODIUM CHLORIDE 0.9% 100 ML IVPB SCH (16:46)
[2018-12-26] MEDS: SODIUM CHLORIDE 0.9% 1,000 ML IV SCH (16:49)
[2018-12-26] MEDS: PANTOPRAZOLE 40 MG/10 ML VIAL IVP SCH (18:56)
[2018-12-26 20:14] LABS: Appearance,Urine Clear (Clear); Bilirubin,Urine Negative (Negative); Blood,Urine Negative (Negative); Color,Urine Light Yellow; Glucose,Urine (UA) Negative (Negative); Ketones,Urine Negative (Negative); Leukocyte Esterase,Urine Negative (Negative); Nitrite,Urine Negative (Negative); PH, Urine 5.5 (5.0-8.0); Protein,Urine Negative (Negative); Specific Gravity,Urine 1.024 (1.001-1.035); Urobilinogen,Urine <2.0 mg/dL (<2.0)
[2018-12-26] MEDS: ARIPiprazole 5 MG TAB PO SCH (21:03)
[2018-12-26] MEDS: METOPROLOL TARTRATE 25 MG TAB PO SCH (21:04)
[2018-12-26] MEDS: INSULIN DETEMIR (LEVEMIR) 100 UNIT/ML SYR SQ SCH (21:04)
[2018-12-26] MEDS: LISINOPRIL 10 MG TAB PO SCH (21:04)
[2018-12-26] MEDS: ISOSORBIDE MONONITRATE ER 30 MG TAB.ER.24H PO SCH (21:04)
[2018-12-26] MEDS: traZODone HCL 50 MG TAB PO SCH (21:04)
[2018-12-26 21:23] LABS: Glucose,Whole Blood 159 mg/dL (75-99)
[2018-12-26] MEDS: SYMBICORT 160-4.5 MCG INHALER INHALATION SCH (23:42)
[2018-12-27] MEDS: PIPERACILLIN-TAZOBACTAM 3.375 GM in SODIUM CHLORIDE 0.9% 100 ML IVPB SCH ×3 (00:13→16:55)
[2018-12-27] MEDS: SODIUM CHLORIDE 0.9% 1,000 ML IV SCH ×2 (04:28→16:55)
[2018-12-27 04:49] LABS: Basophils % (A) 0 %; Eosinophils # (A) 0.2 k/uL (0-0.7); Eosinophils % (A) 3 %; HCT 23.9 % (39.0-53.0); Lymphocytes # (A) 1.3 k/uL (1.0-4.8); Lymphocytes % (A) 18 %; MCH 29.9 pg (25.0-35.0); MCHC 33.4 g/dL (31.0-37.0); MCV 89.4 fL (80.0-100.0); Monocytes # (A) 0.5 k/uL (0-1.0); Monocytes % (A) 7 %; Neutrophils # (A) 4.8 k/uL (1.3-7.7); Neutrophils % (A) 69 %; Platelet Count 222 k/uL (150-450); RBC 2.67 m/uL (4.30-5.90); RDW 14.9 % (11.5-15.5); WBC 6.9 k/uL (3.8-10.6)
[2018-12-27 04:58] LABS: Albumin 2.9 g/dL (3.5-5.0); Calcium 8.2 mg/dL (8.4-10.2); Magnesium 1.7 mg/dL (1.6-2.3); Potassium 4.3 mmol/L (3.5-5.1); Total Bilirubin 0.2 mg/dL (0.2-1.3); Total Protein 4.9 g/dL (6.3-8.2)
[2018-12-27] MEDS ORDERED: Magnesium Replacement Protocol 1 EACH MISC MISCELLANE PRN (05:06)
[2018-12-27] MEDS: MAGNESIUM SULFATE-D5W PMX 1 GM in DEXTROSE/WATER 1 100ML.BAG IVPB SCH ×2 (05:21→06:53)
[2018-12-27] MEDS: INSULIN ASPART (NovoLOG) 100 UNIT/ML VIAL SQ SCH ×7 (07:04→21:20)
[2018-12-27] MEDS: SYMBICORT 160-4.5 MCG INHALER INHALATION SCH ×2 (07:10→20:14)
[2018-12-27 07:16] LABS: Glucose,Whole Blood 127 mg/dL (75-99)
[2018-12-27] MEDS: METOPROLOL TARTRATE 25 MG TAB PO SCH ×2 (08:15→21:18)
[2018-12-27] MEDS: INSULIN DETEMIR (LEVEMIR) 100 UNIT/ML SYR SQ SCH ×2 (08:15→21:20)
[2018-12-27] MEDS: LISINOPRIL 10 MG TAB PO SCH ×2 (08:15→21:19)
[2018-12-27] MEDS: CITALOPRAM HYDROBROMIDE 20 MG TAB PO SCH (08:15)
[2018-12-27] MEDS: PANTOPRAZOLE 40 MG/10 ML VIAL IVP SCH (08:16)
--- NOTE | 2018-12-27 10:19 | CONS ---
CONSULTATION Mr. Rudolph is a 68-year-old gentleman who is seen for cardiac evaluation. This patient's medical records, lab tests and medications were reviewed. Essentially this patient is admitted with lower GI bleeding. The patient was doing well yesterday morning and then he is started having maroon-colored stool. He had one stool at home and then two bouts in the emergency room. Patient received fluids in the emergency room. CAT scan of the abdomen was done which showed some diffuse thickening of the cecum. There was fatty infiltration of the liver. This patient underwent a colonoscopy about 2 weeks ago and underwent a polypectomy. The patient has a known history of coronary artery disease with history of multiple stents in the past. The last catheterization and stent was done in 2017. The patient has been taking aspirin and Brilinta. The patient says he started taking is Brilinta next after colonoscopy. REVIEW OF THE SYSTEM: Review of systems is otherwise unremarkable. PAST MEDICAL HISTORY: Past medical history includes history of sleep apnea. Patient has a history of atrial fibrillation, diabetes, hyperlipidemia, hypertension, prior cardiac catheterization, hernia surgery and orthopedic surgery. HOME MEDICATIONS: Patient's home medications include Abilify, citalopram, aspirin 81 mg daily, colchicine, ferrous sulfate once a day, lisinopril 10 mg daily, Zebeta 5 mg daily, Brilinta 90 mg b.i.d., metformin 1000 mg b.i.d., Repatha and magnesium oxide. PHYSICAL EXAMINATION: Physical examination at present reveals a 68-year-old gentleman who does not appear to be in any acute distress. Patient's heart rate is 80 per minute, blood pressure is 145/76 mmHg. Head/ENT examination is negative. Neck is supple. There is no increase in jugular venous pressure. Both the carotid pulses are felt. There is no bruit. Chest is symmetrical. HEART: The PMI is not felt. First and second heart sounds are heard. Lungs are clinically clear to auscultation and percussion. Abdomen is soft. Liver and spleen are not enlarged. EXTREMITIES: Peripheral pulses are 2+. The patient's hemoglobin is 8.0. Electrolytes are normal. Creatinine is 1.23. Patient's EKG shows normal sinus rhythm. FINAL IMPRESSION: 1. This patient is admitted with a lower gastrointestinal bleeding. 2. Patient is status post recent colonoscopy and polypectomy. 3. The patient has a known history of coronary artery disease with a history of multiple stents done in the past. The last stent was done in 2017. 4. There is a questionable history of atrial fibrillation, which we need to confirm. RECOMMENDATIONS: At present, patient's aspirin and Brilinta are on hold. After the patient's GI bleeding is subsided, we will resume at present only aspirin and discontinue Brilinta. We will discuss with Dr. Forrest and see whether he had any definite episodes of atrial fibrillation in the past, then he may need anticoagulation. At present, patient is hemodynamically stable. MMODL / IJN: [id number] /
[2018-12-27 11:55] LABS: Glucose,Whole Blood 149 mg/dL (75-99)
[2018-12-27 12:45] LABS: Basophils % (A) 1 %; Eosinophils # (A) 0.3 k/uL (0-0.7); Eosinophils % (A) 4 %; HCT 27.6 % (39.0-53.0); Lymphocytes # (A) 1.2 k/uL (1.0-4.8); Lymphocytes % (A) 17 %; MCH 29.5 pg (25.0-35.0); MCHC 32.6 g/dL (31.0-37.0); MCV 90.6 fL (80.0-100.0); Mean Platelet Volume 6.1; Monocytes # (A) 0.4 k/uL (0-1.0); Monocytes % (A) 6 %; Neutrophils # (A) 5.1 k/uL (1.3-7.7); Neutrophils % (A) 70 %; Platelet Count 258 k/uL (150-450); RBC 3.05 m/uL (4.30-5.90); WBC 7.2 k/uL (3.8-10.6)
--- NOTE | 2018-12-27 14:42 | P.PN ---
Subjective Progress Note Date: 12/27/18 68-year-old male patient presented to ED with GI bleed. The patient was having maroon colored stools. Note that the patient had a colonoscopy approximately 2 weeks ago that was done by Dr. Marcum and the colonoscopy showed a small to medium size flat polyp in the right colon that was removed by snare piecemeal methods. Diverticulosis without evidence of acute diverticulitis or strictures was also seen. The auto itself was benign. The polyp was a tubular adenoma. The patient himself was doing well till as morning when he started having maroon color stool, the patient had one bout at home and 2 bouts in the emergency department. This was bright red blood/maroon in color. The patient also had abdominal pain and cramping. He did not have any hematemesis. No melanotic stools. No history of any constipation. No fever chills or night sweats. He came into the ED and his serum level was 10. The patient was started on IV fluids and the patient was already given 2 L of IV fluids in the form of normal saline. Currently is on a maintenance of 0.9 at the rate of 75 mL an hour. His hemoglobin currently is at 10.0. Correlation profile is within normal limits. GI is a 27 with a creatinine of 1.2. Lactic acid is at 2.8. CAT scan of the abdomen was also done and showed a nonobstructive right renal stone without any evidence of hydronephrosis. There was diffuse thickening of the cecum and there was moderate fatty infiltration of the liver with a minimal right-sided pleural effusion. The patient got chest to the intensive care unit. He is afebrile. The patient is known to have coronary artery disease. The patient has had previous myocardial infarction stenting and the patient is on a combination of aspirin and Brilinta. On today's evaluation of 12/27/2018, the patient is doing well. The patient remains on clear liquid diet. The patient has a stable hemoglobin of 9.0. He the patient received a unit of blood yesterday. Since yesterday he had no further episodes of bleeding. He had another bowel movement this morning that showed that he stable without evidence of any significant bleeding and there was minimal amount of maroon color stool within the stool. The patient's hemoglobin is stable at 9.0. Hemodynamically stable. He was seen by GI and the treatment will be conservative watchful waiting for now. He is afebrile. He is hemodynamically stable. He is on IV Zosyn. No pain. At sugars under good control. He is on full liquid diet for now. Objective - Vital Signs Vital signs: Vital Signs Temp 98.6 F 12/27/18 12:00 Pulse 87 12/27/18 13:00 Resp 23 12/27/18 13:00 BP 145/95 12/27/18 13:00 Pulse Ox 95 12/27/18 12:00 Intake & Output 12/26/18 12/27/18 12/27/18 18:59 06:59 18:59 Intake Total 300 1770 1825 Output Total 501 Balance 300 1770 1324 Weight 120.656 kg 116.5 kg Intake: IV 75 750 525 Sodium Chloride 0.9% 1, 75 750 525 000 ml @ 75 mls/hr IV . [id number] SALLY Rx#:[id number] Intake, IV Titration 225 100 Amount Piperacillin-Tazobactam 3 100 .375 gm In Sodium Chloride 0.9% 100 ml @ 25 mls/hr IVPB Q8HR SALLY Rx# :[id number] Sodium Chloride 0.9% 1, 225 000 ml @ 75 mls/hr IV . [id number] SALLY Rx#:[id number] Oral 400 1200 Blood Product 620 Rc As-3 Unit 310 [id number] Output: Urine 500 Stool 1 Other: Voiding Method Toilet Toilet # Voids 1 1 1 # Bowel Movements 0 1 - Exam General: The patient is awake and alert, in no distress. Mild pallor noted. Eye: +3 mm pupils are equal, round and reactive to light, extra-ocular movements are intact. No nystagmus. There is normal conjunctiva bilaterally. No signs of icterus. Ears, nose, mouth and throat: There are moist mucous membranes and no oral lesions. Neck: The neck is supple, there is no tenderness or JVD. Cardiovascular: There is a regular rate and rhythm. No murmur, rub or gallop is appreciated. Respiratory: Lungs are clear to auscultation, respirations are non-labored, breath sounds are equal. No wheezes, stridor, rales, or rhonchi. Gastrointestinal: Obese, non-tender abdomen without masses or organomegaly noted. There is no rebound or guarding present. No CVA tenderness. Bowel sounds are unremarkable. Gross red blood per rectum. Musculoskeletal: Normal ROM, no tenderness. Strength 5/5. Sensation intact. Pulses equal bilaterally 2+. Neurological: A&O x 3. CN II-XII intact, There are no obvious motor or sensory deficits. Coordination appears grossly intact. Speech is normal. Skin: Skin is warm and dry and no rashes or lesions are noted. No LE edema. Psychiatric: Cooperative, appropriate mood & affect, normal judgment. - Labs CBC & Chem 7: 12/27/18 12:30 12/27/18 04:34 Labs: Abnormal Lab Results - Last 24 Hours (Table) 12/26/18 12/26/18 12/26/18 Range/Units 11:50 14:34 14:50 RBC 2.71 L (4.30-5.90) m/uL Hgb 8.4 L D (13.0-17.5) gm/dL Hct 24.8 L (39.0-53.0) % Chloride (98-107) mmol/L BUN (9-20) mg/dL POC Glucose (mg/dL) 194 H (75-99) mg/dL Plasma Lactic Acid Donnell (0.7-2.0) mmol/L Calcium (8.4-10.2) mg/dL Alkaline Phosphatase (38-126) U/L Total Protein (6.3-8.2) g/dL Albumin (3.5-5.0) g/dL Crossmatch See Detail 12/26/18 12/26/18 12/26/18 Range/Units 14:50 16:16 20:52 RBC (4.30-5.90) m/uL Hgb (13.0-17.5) gm/dL Hct (39.0-53.0) % Chloride (98-107) mmol/L BUN (9-20) mg/dL POC Glucose (mg/dL) 211 H 159 H (75-99) mg/dL Plasma Lactic Acid Donnell 2.1 H* (0.7-2.0) mmol/L Calcium (8.4-10.2) mg/dL Alkaline Phosphatase (38-126) U/L Total Protein (6.3-8.2) g/dL Albumin (3.5-5.0) g/dL Crossmatch 12/27/18 12/27/18 12/27/18 Range/Units 04:34 04:34 07:02 RBC 2.67 L (4.30-5.90) m/uL Hgb 8.0 L (13.0-17.5) gm/dL Hct 23.9 L (39.0-53.0) % Chloride 112 H (98-107) mmol/L BUN 24 H (9-20) mg/dL POC Glucose (mg/dL) 127 H (75-99) mg/dL Plasma Lactic Acid Donnell (0.7-2.0) mmol/L Calcium 8.2 L (8.4-10.2) mg/dL Alkaline Phosphatase 37 L (38-126) U/L Total Protein 4.9 L (6.3-8.2) g/dL Albumin 2.9 L (3.5-5.0) g/dL Crossmatch 12/27/18 12/27/18 Range/Units 11:51 12:30 RBC 3.05 L (4.30-5.90) m/uL Hgb 9.0 L (13.0-17.5) gm/dL Hct 27.6 L (39.0-53.0) % Chloride (98-107) mmol/L BUN (9-20) mg/dL POC Glucose (mg/dL) 149 H (75-99) mg/dL Plasma Lactic Acid Donnell (0.7-2.0) mmol/L Calcium (8.4-10.2) mg/dL Alkaline Phosphatase (38-126) U/L Total Protein (6.3-8.2) g/dL Albumin (3.5-5.0) g/dL Crossmatch Assessment and Plan Plan: Assessment 1 acute lower GI bleeding post colonoscopy and resection of a colonic polyp that do not to be a tubular adenoma. The patient presented with lower GI bleed and the CAT scan of the abdomen and pelvis showed inflammatory changes involving the cecum, could be underlying see colitis/typhalitis post endoscopy and biopsy. Hemodynamically stable. Hemoglobin stable above 10. Note that the patient was also on antiplatelet agents for his underlying coronary artery disease utilizing a combination of aspirin and Brillinta 2 coronary artery disease, post coronary stenting 3 paroxysmal atrial fibrillation currently in sinus 4 diabetes mellitus 5 hypertension 6 hyperlipidemia 7 obstructive sleep apnea 8 nephrolithiasis 9 gout 10 bipolar disorder/depression 11 history of gallstones 12 COPD maintained on Symbicort on outpatient basis currently on room air oxygen Plan The patient received a unit of packed RBC. Hemoglobin is stable. No evidence of any significant bleeding since yesterday. Seen by GI. The area of the adenoma in the colon was inflamed based on the CAT scan findings. He is on IV Zosyn. He'll be managed conservatively. No need to repeat a colonoscopy unless his condition changes. He is on full liquid diet. Hemodynamically stable. A mile. The patient can be transferred to a medical floor with remote telemetry.
[2018-12-27 16:59] LABS: Glucose,Whole Blood 134 mg/dL (75-99)
[2018-12-27 18:47] LABS: Basophils % (A) 0 %; Eosinophils # (A) 0.3 k/uL (0-0.7); Eosinophils % (A) 4 %; HCT 26.1 % (39.0-53.0); HGB 8.6 gm/dL (13.0-17.5); Lymphocytes # (A) 1.5 k/uL (1.0-4.8); Lymphocytes % (A) 17 %; MCHC 32.9 g/dL (31.0-37.0); Mean Platelet Volume 6.7; Monocytes # (A) 0.6 k/uL (0-1.0); Monocytes % (A) 7 %; Neutrophils # (A) 6.3 k/uL (1.3-7.7); Neutrophils % (A) 70 %; Platelet Count 258 k/uL (150-450); RBC 2.87 m/uL (4.30-5.90); RDW 15.3 % (11.5-15.5)
--- NOTE | 2018-12-27 19:07 | PN ---
PROGRESS NOTE DATE OF SERVICE: 12/27/2018 This 68-year-old gentleman was admitted with GI bleed in the ER received 1 unit transfusion. Patient also had some more bleeding last night. Hemoglobin is 9 at this time. Gastroenterology following the patient. Please note the patient had recent polypectomy with scraping of the flat polyp. Patient also had multiple stents. Patient is on Brilinta, multiple consultants are following the patient closely including cardiology and as well as pulmonology. PAST MEDICAL HISTORY: Reviewed. REVIEW OF SYSTEMS: CARDIOVASCULAR: No angina or palpitations. RESPIRATORY: As mentioned earlier. No cough. GI as mentioned earlier. : No nausea or vomiting. CENTRAL NERVOUS SYSTEM: No focal deficits. CURRENT MEDICATIONS ARE: Current medications are reviewed and include: 1. Xanax 0.25 t.i.d. 2. Abilify 7.5 q.6h. 3. Symbicort 160/4.5 2 puffs b.i.d. 4. Celexa 40 mg daily. 5. Dilaudid 0.5 mg q.4. 6. NovoLog scale. 7. Levemir 60 units b.i.d. 8. Imdur 30 mg q.h.s. 9. Zestril 10 mg b.i.d. 10.Lopressor 25 mg b.i.d. 11.Narcan 0.2 q.2h. 12.Protonix 40 mg daily. 13.Zosyn 3.375 IV q.8h. 14.Restoril 15 mg q.h.s. 15.Desyrel 150 mg p.o. q.h.s. PHYSICAL EXAMINATION: The patient is alert and oriented times three. Pulse 85. Blood pressure 130/73, respiratory 22, temperature 98 degrees, pulse ox 98% on room air. HEENT: Conjunctivae normal. NECK: No jugular venous distention. CARDIOVASCULAR: S1, S2 muffled. RESPIRATORY: Breath sounds diminished in the bases. No rhonchi. No crackles. Abdomen is soft, obese, nontender. No mass palpable. Legs no edema. No swelling. NERVOUS SYSTEM: Higher functions as mentioned earlier. Moves all four extremities. No focal deficits. Lymphatics: No lymph nodes palpable in the neck, axillae or groin. Skin: No ulcer, rash or bleeding. JOINTS: No active deforming arthropathy. LAB STUDIES: WBC 7.7. Hemoglobin other labs are noted. Albumin is 2.9. ASSESSMENT: 1. Acute lower gastrointestinal bleeding with acute blood loss anemia, possibly secondary to polypectomy site bleeding, rule out or ischemic colitis. 2. History of coronary artery disease, multiple stents x6. 3. Hyperkalemia, mild. 4. History of atrial fibrillation. 5. Chronic obstructive pulmonary disease. 6. Diabetes type 2. 7. Hyperlipidemia. 8. Hypertension. 9. Obstructive sleep apnea. 10.Obesity with body mass index of 38.2. 11.Kidney stones history. 12.History of gout. 13.History of bipolar. 14.History of depression. 15.History of suicide attempts in the past. 16.Remote history of nicotine dependence. RECOMMENDATIONS AND DISCUSSION: Recommend to continue current medications, management. Symptomatic treatment. Monitor hemoglobin closely. Watch for further bleeding and transfuse on periodic basis. Gastroenterology following the patient closely. Gastroenterology planning possible colonoscopy. Otherwise cardiology input appreciated. The plan will be to initiate only aspirin and continue Brilinta per Cardiology once the bleeding subsided. Otherwise, will continue to monitor. Overall prognosis extremely guarded because of multiple complex medical issues. We will continue to monitor in the ICU because of the above mentioned multiple complex medical issues and the risk of complications. Further recommendations to follow. MMODL / IJN: [id number] / SHANNEN
[2018-12-27 21:16] LABS: Glucose,Whole Blood 203 mg/dL (75-99)
[2018-12-27] MEDS: traZODone HCL 50 MG TAB PO SCH (21:17)
[2018-12-27] MEDS: ARIPiprazole 5 MG TAB PO SCH (21:17)
[2018-12-27] MEDS: ISOSORBIDE MONONITRATE ER 30 MG TAB.ER.24H PO SCH (21:20)
--- NOTE | 2018-12-27 21:36 | P.CONS ---
History of Present Illness - Reason for Consult Consult date: 12/27/18 Blood per rectum Requesting physician: Sariah Calle - Chief Complaint Blood per rectum - History of Present Illness pleasant 60-year-old male with a medical history pidemia, DARLIN, coronary artery disease and COPD who presented to the hospital with complaints of blood per rectum. The patient recently underwent a colonoscopy on 12/14/2018 at which time he had removal of a IC valve polyp described as small to medium in size with snare polypectomy. The patient has done well until the day of admission when he began having multiple episodes of grossly bloody diarrhea. The patient reports some associated mild cramping in his lower abdomen with the episodes but denies any pain. The patient reports that since last night he is had 2 further episodes but feels that he is passing less blood and that the blood looks darker at this time. The patient was started on liquids which he tolerated. Initially the patient was found to have a hemoglobin of 10 which was subsequently found to be 8.4 and then ate this morning. INR 1, total bilirubin 0.2, alkaline phosphatase 37, AST 34 and ALT 61. The patient is seen this morning lying comfortably in bed with no other acute complaints. Review of Systems REVIEW OF SYSTEMS: CONSTITUTIONAL: Denies any fevers, chills, weight change or fatigue. CARDIOVASCULAR: Denies any chest pain, palpitations high or low blood pressures RESPIRATORY: Denies any shortness of breath, hemoptysis or cough. GENITOURINARY: No dysuria or hematuria. MUSCULOSKELETAL: No weakness reported. SKIN: Denies any new rashes or lesions, jaundice or pallor. PSYCHIATRIC: Denies any depression or anxiety. NEUROLOGY: Denies headache, denies any new focal deficits. EARS/NOSE/THROAT: No recent hearing change, congestion, nasal discharge or sore throat. EYES: No pain in eyes, discharge or change in vision. GASTROINTESTINAL: As per HPI. Past Medical History Past Medical History: Atrial Fibrillation, Coronary Artery Disease (CAD), COPD, Diabetes Mellitus, Hyperlipidemia, Hypertension, Sleep Apnea/CPAP/BIPAP Additional Past Medical History / Comment(s): Obstructive sleep apnea and the patient uses a CPAP. HX KIDNEY STONES, GOUT, BIPOLAR DEPRESSION., gall stone, coronary artery disease him a paroxysmal atrial fibrillation, diabetes mellitus , diverticulosis, colonic polyps, depression, attention, hyperlipidemia History of Any Multi-Drug Resistant Organisms: None Reported Past Surgical History: Heart Catheterization With Stent, Hernia Repair, Orthopedic Surgery, Tonsillectomy Additional Past Surgical History / Comment(s): Pilonidal cyst. EXC ABDI CATARACTS. Bilateral Knee Sx. LITHOTRIPSY. COLONOSCOPY. 05-15-16 at [facility] had heart cath w/1 stent, 05-21-16 had 2 more stents - another stent placed 06/26, total of 6 stents. LASIK SX Past Anesthesia/Blood Transfusion Reactions: No Reported Reaction Additional Past Anesthesia/Blood Transfusion Reaction / Comm: no hx blood transfusion Date of Last Stent Placement:: 06/25/2017 Past Psychological History: Bipolar, Depression Additional Psychological History / Comment(s): pt admitted to 5 past suicide attempts. pt lives at home with his common law ekaterina. Smoking Status: Former smoker Past Alcohol Use History: None Reported Additional Past Alcohol Use History / Comment(s): started smoking at age 16(1965 ) stopped at age 65() smoked, 1ppd. Past Drug Use History: None Reported - Past Family History Mother Family Medical History: Coronary Artery Disease (CAD) Father Family Medical History: Coronary Artery Disease (CAD) Additional Family Medical History / Comment(s): emphysema Medications and Allergies Home Medications Medication Instructions Recorded Confirmed Type ARIPiprazole [Abilify] 7.5 mg PO HS 11/03/14 12/26/18 History Citalopram Hydrobromide 40 mg PO DAILY 11/03/14 12/26/18 History [Citalopram HBr] Ascorbic Acid [Vitamin C] 500 mg PO DAILY 01/17/16 12/26/18 History Cholecalciferol [Vitamin D3] 2,000 unit PO BID 01/17/16 12/26/18 History [place]-3 Fatty Acids/Fish Oil [Fish 1,000 mg PO DAILY 07/02/16 12/26/18 History Oil 1,000 mg Softgel] traZODone HCL 150 mg PO HS 07/02/16 12/26/18 History Aspirin EC [Ecotrin Low Dose] 81 mg PO DAILY 11/20/16 12/26/18 History Colchicine 0.6 mg PO DAILY 11/20/16 12/26/18 History Montelukast [Singulair] 10 mg PO HS 11/20/16 12/26/18 History Albuterol Sulfate [Proventil Hfa] 2 puff INHALATION RT-Q4H PRN 02/19/17 History Budesonide/Formoterol Fumarate 2 puff INHALATION RT-BID 02/19/17 12/26/18 History [Symbicort 160-4.5 Mcg Inhaler] Metoprolol Tartrate [Lopressor] 25 mg PO BID 02/19/17 12/26/18 History Ferrous Sulfate [Feosol] 325 mg PO BID 04/29/17 12/26/18 History Lisinopril [Zestril] 10 mg PO BID 04/29/17 12/26/18 History INSULIN ASPART (NovoLOG) [NovoLOG 12 unit SQ AC-TID 07/27/17 12/26/18 History (formulary)] Ticagrelor [Brilinta] 90 mg PO BID #60 tab 08/15/17 12/26/18 Rx Bisoprolol [Zebeta] 5 mg PO DAILY 08/31/17 12/26/18 History Isosorbide Mononitrate ER [Imdur] 30 mg PO HS #30 tab.er.24h 09/01/17 12/26/18 Rx Insulin Detemir (Levemir) [Levemir] 83 unit SQ BID 11/06/17 12/26/18 History Saxagliptin HCl [Onglyza] 5 mg PO HS 11/06/17 12/26/18 History metFORMIN HCL 1,000 mg PO BID 09/10/18 12/26/18 History Evolocumab [Repatha Syringe] 140 mg SQ Q14D 12/10/18 12/26/18 History Magnesium Oxide 400 mg PO BID 12/10/18 12/26/18 History Allergies Allergy/AdvReac Type Severity Reaction Status Date / Time No Known Allergies Allergy Verified 12/26/18 12:16 Physical Exam Vitals: Vital Signs Temp Pulse Resp BP Pulse Ox 12/27/18 21:00 99.1 F 81 22 129/60 94 L 12/27/18 20:00 87 22 96 12/27/18 19:00 92 22 95 12/27/18 17:00 90 26 H 92 L 12/27/18 16:00 98.0 F 85 22 136/73 96 12/27/18 15:00 84 26 H 88 L 12/27/18 14:00 141/78 12/27/18 13:00 87 23 145/95 12/27/18 12:00 98.6 F 75 22 150/74 95 12/27/18 11:00 79 26 H 93 L 12/27/18 10:00 113/89 94 L 12/27/18 09:00 74 19 137/85 91 L 12/27/18 08:00 98.0 F 92 15 93 L 12/27/18 07:00 79 10 L 145/76 93 L 12/27/18 06:00 78 16 109/54 95 12/27/18 05:00 70 24 116/58 93 L 12/27/18 04:00 97.9 F 73 22 109/56 91 L 12/27/18 03:00 71 19 112/59 93 L 12/27/18 02:00 85 23 107/49 94 L 12/27/18 01:00 70 18 101/60 92 L 12/27/18 00:02 74 28 H 101/60 92 L 12/27/18 00:00 98.0 F 74 21 103/45 93 L 12/26/18 23:36 98.0 F 74 20 103/48 12/26/18 23:00 70 12 93 L 12/26/18 22:00 78 28 H 117/61 92 L 12/26/18 21:27 97.7 F 72 19 114/52 94 L Intake and Output 12/27/18 12/27/18 12/27/18 06:59 14:59 22:59 Intake Total 1110 2140 855 Output Total 501 2 Balance 1110 1639 853 Intake: IV 600 600 375 Sodium Chloride 0.9% 1, 600 600 375 000 ml @ 75 mls/hr IV . [id number] SALLY Rx#:[id number] Intake, IV Titration 100 Amount Piperacillin-Tazobactam 3 100 .375 gm In Sodium Chloride 0.9% 100 ml @ 25 mls/hr IVPB Q8HR SALLY Rx# :[id number] Oral 200 1440 480 Blood Product 310 Rc As-3 Unit 310 [id number] Output: Urine 500 Stool 1 2 Other: Voiding Method Toilet Toilet Toilet # Voids 1 1 1 Weight 116.5 kg On physical examination, patient appears comfortable in no apparent distress. HEAD: Normocephalic, atraumatic. EYES: No scleral icterus. No conjunctival injection. MOUTH: No lesions, tongue midline. NECK: Trachea midline, no gross abnormalities. CHEST: Clear to auscultation with no wheezing or rhonchi appreciated. HEART: S1-S2 appreciated. ABDOMEN: Soft, obese. Bowel sounds are positive. No organomegaly. No guarding or rigidity. EXTREMITIES: No pedal edema. SKIN: No rashes, no jaundice. NEUROLOGIC: Alert and oriented x3. No focal deficits. Results CBC & Chem 7: 12/27/18 18:20 12/27/18 04:34 Labs: Abnormal Lab Results - Last 24 Hours (Table) 12/26/18 12/27/18 12/27/18 Range/Units 11:50 04:34 04:34 RBC 2.67 L (4.30-5.90) m/uL Hgb 8.0 L (13.0-17.5) gm/dL Hct 23.9 L (39.0-53.0) % Chloride 112 H (98-107) mmol/L BUN 24 H (9-20) mg/dL POC Glucose (mg/dL) (75-99) mg/dL Calcium 8.2 L (8.4-10.2) mg/dL Alkaline Phosphatase 37 L (38-126) U/L Total Protein 4.9 L (6.3-8.2) g/dL Albumin 2.9 L (3.5-5.0) g/dL Crossmatch See Detail 12/27/18 12/27/18 12/27/18 Range/Units 07:02 11:51 12:30 RBC 3.05 L (4.30-5.90) m/uL Hgb 9.0 L (13.0-17.5) gm/dL Hct 27.6 L (39.0-53.0) % Chloride (98-107) mmol/L BUN (9-20) mg/dL POC Glucose (mg/dL) 127 H 149 H (75-99) mg/dL Calcium (8.4-10.2) mg/dL Alkaline Phosphatase (38-126) U/L Total Protein (6.3-8.2) g/dL Albumin (3.5-5.0) g/dL Crossmatch 12/27/18 12/27/18 12/27/18 Range/Units 16:56 18:20 20:47 RBC 2.87 L (4.30-5.90) m/uL Hgb 8.6 L (13.0-17.5) gm/dL Hct 26.1 L (39.0-53.0) % Chloride (98-107) mmol/L BUN (9-20) mg/dL POC Glucose (mg/dL) 134 H 203 H (75-99) mg/dL Calcium (8.4-10.2) mg/dL Alkaline Phosphatase (38-126) U/L Total Protein (6.3-8.2) g/dL Albumin (3.5-5.0) g/dL Crossmatch CT scan - abdomen: report reviewed (Computed tomography scan abdomen with multiple findings including diffuse thickening of the cecum and fatty infiltration of liver.) Assessment and Plan (1) Post-polypectomy bleeding Narrative/Plan: 68-year-old male who recently underwent colonoscopy on 12/14/2018 with snare polypectomy of an IC valve polyp with pathology significant for tubular adenoma. The patient presented back to the hospital with multiple episodes of blood per rectum and CT findings with thickening of the cecum consistent with post polypectomy bleed. Patient currently reporting decreasing symptoms with less blood noted per rectum. He is also denying any abdominal pain and reporting only mild cramping with bowel movements. Current Visit: Yes Status: Acute Code(s): [id number] - SNOMED Code(s): 370787644 (2) Anemia due to blood loss, acute Current Visit: Yes Status: Acute Code(s): D62 - ACUTE POSTHEMORRHAGIC ANEMIA SNOMED Code(s): 202722688 (3) Fatty liver Current Visit: Yes Status: Acute Code(s): K76.0 - FATTY (CHANGE OF) LIVER, NOT ELSEWHERE CLASSIFIED SNOMED Code(s): 785213245 Plan: Supportive care For liquid diet Continue to monitor symptoms of GI bleeding Continue to monitor hemoglobin and transfuse as needed Okay to continue antibiotic therapy at this time We will continue with conservative management at this time, however if patient has worsening of symptoms of bleeding or further fall in hemoglobin plan is for bowel prep and colonoscopy for further evaluation, this is been explained to the patient in great detail who agrees with the plan and related to Dr. Marcum of the gastroenterology service who is also in agreement Thank you for allowing us to participate in care of this patient we will continue to follow
[2018-12-28] MEDS: PIPERACILLIN-TAZOBACTAM 3.375 GM in SODIUM CHLORIDE 0.9% 100 ML IVPB SCH ×3 (00:55→16:24)
[2018-12-28] MEDS: SODIUM CHLORIDE 0.9% 1,000 ML IV SCH (04:58)
[2018-12-28 05:24] LABS: Basophils % (A) 1 %; Eosinophils # (A) 0.3 k/uL (0-0.7); Eosinophils % (A) 4 %; HCT 20.8 % (39.0-53.0); Lymphocytes # (A) 1.2 k/uL (1.0-4.8); Lymphocytes % (A) 16 %; MCH 30.7 pg (25.0-35.0); MCHC 33.7 g/dL (31.0-37.0); MCV 91.2 fL (80.0-100.0); Mean Platelet Volume 6.2; Monocytes # (A) 0.5 k/uL (0-1.0); Monocytes % (A) 6 %; Neutrophils # (A) 5.5 k/uL (1.3-7.7); Neutrophils % (A) 71 %; Platelet Count 195 k/uL (150-450); RBC 2.28 m/uL (4.30-5.90); RDW 15.4 % (11.5-15.5); WBC 7.7 k/uL (3.8-10.6)
[2018-12-28 05:39] LABS: Albumin 2.9 g/dL (3.5-5.0); Calcium 8.6 mg/dL (8.4-10.2); Magnesium 1.7 mg/dL (1.6-2.3); Potassium 4.4 mmol/L (3.5-5.1); Total Bilirubin 0.1 mg/dL (0.2-1.3); Total Protein 4.9 g/dL (6.3-8.2)
[2018-12-28] MEDS ORDERED: Magnesium Replacement Protocol 1 EACH MISC MISCELLANE PRN (06:10)
[2018-12-28 06:59] LABS: Glucose,Whole Blood 122 mg/dL (75-99)
[2018-12-28] MEDS: INSULIN ASPART (NovoLOG) 100 UNIT/ML VIAL SQ SCH ×7 (07:02→20:20)
[2018-12-28] MEDS: MAGNESIUM SULFATE-D5W PMX 1 GM in DEXTROSE/WATER 1 100ML.BAG IVPB SCH ×2 (07:03→08:53)
[2018-12-28] MEDS: SYMBICORT 160-4.5 MCG INHALER INHALATION SCH ×2 (08:21→19:00)
--- NOTE | 2018-12-28 08:39 | P.PN ---
Subjective Progress Note Date: 12/28/18 Principal diagnosis: Rectal bleeding Nonbloody bowel movement this morning. Denies abdominal pain. Hemodynamically stable. Hemoglobin 7 receiving 1 unit of blood. Last bloody bowel movement yesterday. Tolerating full liquids requesting advancement. BUN and creatinine within normal limits. Objective - Vital Signs Vital signs: Vital Signs Temp 98.1 F 12/28/18 07:21 Pulse 86 12/28/18 07:21 Resp 18 12/28/18 07:21 BP 124/60 12/28/18 07:21 Pulse Ox 95 12/28/18 08:21 Intake & Output 12/27/18 12/28/18 12/28/18 18:59 06:59 18:59 Intake Total 2920 375 0 Output Total 503 5 Balance 2417 370 0 Weight 115 kg Intake: IV 900 375 Sodium Chloride 0.9% 1, 900 375 000 ml @ 75 mls/hr IV . [id number] SALLY Rx#:[id number] Intake, IV Titration 100 Amount Piperacillin-Tazobactam 3 100 .375 gm In Sodium Chloride 0.9% 100 ml @ 25 mls/hr IVPB Q8HR SALLY Rx# :[id number] Oral 1920 Blood Product 0 Rc As-1 Unit 0 [id number] Output: Urine 500 Stool 3 5 Other: Voiding Method Toilet Toilet # Voids 1 1 - Exam General appearance: The patient is alert, oriented, in no acute distress. HET: Head is normocephalic and atraumatic. Pupils are equal and reactive. Oropharynx is clear without lesions. Neck: Supple without lymphadenopathy. Trachea midline. Heart: S1 S2. Regular rate and rhythm. Lungs: No crackles or wheezes are heard. Abdomen: Soft, nontender, nondistended with bowel sounds. No peritoneal signs. No palpable organomegaly or masses. Extremities: Normal skin color and turgor. No cyanosis, rash, ulceration, clubbing, or edema. Radial and pedal pulses are 2/4 bilaterally. Neurological: No focal deficits. Strength and sensation are grossly intact. - Labs CBC & Chem 7: 12/28/18 04:23 12/28/18 04:23 Labs: Abnormal Lab Results - Last 24 Hours (Table) 12/26/18 12/27/18 12/27/18 Range/Units 11:50 11:51 12:30 RBC 3.05 L (4.30-5.90) m/uL Hgb 9.0 L (13.0-17.5) gm/dL Hct 27.6 L (39.0-53.0) % Chloride (98-107) mmol/L Glucose (74-99) mg/dL POC Glucose (mg/dL) 149 H (75-99) mg/dL Total Bilirubin (0.2-1.3) mg/dL Total Protein (6.3-8.2) g/dL Albumin (3.5-5.0) g/dL Crossmatch See Detail 12/27/18 12/27/18 12/27/18 Range/Units 16:56 18:20 20:47 RBC 2.87 L (4.30-5.90) m/uL Hgb 8.6 L (13.0-17.5) gm/dL Hct 26.1 L (39.0-53.0) % Chloride (98-107) mmol/L Glucose (74-99) mg/dL POC Glucose (mg/dL) 134 H 203 H (75-99) mg/dL Total Bilirubin (0.2-1.3) mg/dL Total Protein (6.3-8.2) g/dL Albumin (3.5-5.0) g/dL Crossmatch 12/28/18 12/28/18 12/28/18 Range/Units 04:23 04:23 06:44 RBC 2.28 L (4.30-5.90) m/uL Hgb 7.0 L D (13.0-17.5) gm/dL Hct 20.8 L (39.0-53.0) % Chloride 112 H (98-107) mmol/L Glucose 106 H (74-99) mg/dL POC Glucose (mg/dL) 122 H (75-99) mg/dL Total Bilirubin 0.1 L (0.2-1.3) mg/dL Total Protein 4.9 L (6.3-8.2) g/dL Albumin 2.9 L (3.5-5.0) g/dL Crossmatch Assessment and Plan (1) Post-polypectomy bleeding Current Visit: Yes Status: Acute Code(s): [id number] - SNOMED Code(s): 633467985 (2) Anemia due to blood loss, acute Current Visit: Yes Status: Acute Code(s): D62 - ACUTE POSTHEMORRHAGIC ANEMIA SNOMED Code(s): 001491520 (3) GI bleed Current Visit: Yes Status: Acute Code(s): K92.2 - GASTROINTESTINAL HEMORRHAGE, UNSPECIFIED SNOMED Code(s): 68624097 Plan: 1. Continue full liquids do not advance. Complete blood transfusion. CBC at noon is stable and if no further active bleeding will consider low residue diet for dinner. We'll continue to follow closely with you. Recent surveillance colonoscopy not planned at this time but contingent on clinical course. Assessment and plan a care discussed with Dr. Ziegler
[2018-12-28] MEDS: CITALOPRAM HYDROBROMIDE 20 MG TAB PO SCH (08:52)
[2018-12-28] MEDS: PANTOPRAZOLE 40 MG/10 ML VIAL IVP SCH (08:52)
[2018-12-28] MEDS: LISINOPRIL 10 MG TAB PO SCH ×2 (08:52→20:16)
[2018-12-28] MEDS: METOPROLOL TARTRATE 25 MG TAB PO SCH ×2 (08:52→20:16)
[2018-12-28] MEDS: INSULIN DETEMIR (LEVEMIR) 100 UNIT/ML SYR SQ SCH ×2 (08:58→20:18)
--- NOTE | 2018-12-28 11:30 | P.PN ---
Subjective Progress Note Date: 12/28/18 68-year-old male patient presented to ED with GI bleed. The patient was having maroon colored stools. Note that the patient had a colonoscopy approximately 2 weeks ago that was done by Dr. Marcum and the colonoscopy showed a small to medium size flat polyp in the right colon that was removed by snare piecemeal methods. Diverticulosis without evidence of acute diverticulitis or strictures was also seen. The auto itself was benign. The polyp was a tubular adenoma. The patient himself was doing well till as morning when he started having maroon color stool, the patient had one bout at home and 2 bouts in the emergency department. This was bright red blood/maroon in color. The patient also had abdominal pain and cramping. He did not have any hematemesis. No melanotic stools. No history of any constipation. No fever chills or night sweats. He came into the ED and his serum level was 10. The patient was started on IV fluids and the patient was already given 2 L of IV fluids in the form of normal saline. Currently is on a maintenance of 0.9 at the rate of 75 mL an hour. His hemoglobin currently is at 10.0. Correlation profile is within normal limits. GI is a 27 with a creatinine of 1.2. Lactic acid is at 2.8. CAT scan of the abdomen was also done and showed a nonobstructive right renal stone without any evidence of hydronephrosis. There was diffuse thickening of the cecum and there was moderate fatty infiltration of the liver with a minimal right-sided pleural effusion. The patient got chest to the intensive care unit. He is afebrile. The patient is known to have coronary artery disease. The patient has had previous myocardial infarction stenting and the patient is on a combination of aspirin and Brilinta. On today's evaluation of 12/27/2018, the patient is doing well. The patient remains on clear liquid diet. The patient has a stable hemoglobin of 9.0. He the patient received a unit of blood yesterday. Since yesterday he had no further episodes of bleeding. He had another bowel movement this morning that showed that he stable without evidence of any significant bleeding and there was minimal amount of maroon color stool within the stool. The patient's hemoglobin is stable at 9.0. Hemodynamically stable. He was seen by GI and the treatment will be conservative watchful waiting for now. He is afebrile. He is hemodynamically stable. He is on IV Zosyn. No pain. At sugars under good control. He is on full liquid diet for now. Today's evaluation of 12/28/2018, the patient is still stable in the intensive care unit. The plan is to continue monitoring this patient treating him medically and symptomatically. No nausea or vomiting. No abdominal pain. Is taking clear liquid diet. Has been drop in hemoglobin down to 7.0 from a baseline of 8.6. He reports that he had a good bowel movement today that was brown. The bowel movements from yesterday was probably slightly bloody. I do not think is actively bleeding. No abdominal pain. No distention. No fever. No chills. No altered mentation. Objective - Vital Signs Vital signs: Vital Signs Temp 98.0 F 12/28/18 08:00 Pulse 84 12/28/18 09:00 Resp 18 12/28/18 08:00 BP 145/62 12/28/18 08:00 Pulse Ox 95 12/28/18 08:21 Intake & Output 12/27/18 12/28/18 12/28/18 18:59 06:59 18:59 Intake Total 2920 375 310 Output Total 503 5 1 Balance 2417 370 309 Weight 115 kg Intake: IV 900 375 Sodium Chloride 0.9% 1, 900 375 000 ml @ 75 mls/hr IV . [id number] SALLY Rx#:[id number] Intake, IV Titration 100 Amount Piperacillin-Tazobactam 3 100 .375 gm In Sodium Chloride 0.9% 100 ml @ 25 mls/hr IVPB Q8HR SALLY Rx# :[id number] Oral 1920 Blood Product 310 Rc As-1 Unit 310 [id number] Output: Urine 500 Stool 3 5 1 Other: Voiding Method Toilet Toilet Toilet # Voids 1 1 - Exam General: The patient is awake and alert, in no distress. Mild pallor noted. Eye: +3 mm pupils are equal, round and reactive to light, extra-ocular movements are intact. No nystagmus. There is normal conjunctiva bilaterally. No signs of icterus. Ears, nose, mouth and throat: There are moist mucous membranes and no oral lesions. Neck: The neck is supple, there is no tenderness or JVD. Cardiovascular: There is a regular rate and rhythm. No murmur, rub or gallop is appreciated. Respiratory: Lungs are clear to auscultation, respirations are non-labored, breath sounds are equal. No wheezes, stridor, rales, or rhonchi. Gastrointestinal: Obese, non-tender abdomen without masses or organomegaly noted. There is no rebound or guarding present. No CVA tenderness. Bowel sounds are unremarkable. Gross red blood per rectum. Musculoskeletal: Normal ROM, no tenderness. Strength 5/5. Sensation intact. Pulses equal bilaterally 2+. Neurological: A&O x 3. CN II-XII intact, There are no obvious motor or sensory deficits. Coordination appears grossly intact. Speech is normal. Skin: Skin is warm and dry and no rashes or lesions are noted. No LE edema. Psychiatric: Cooperative, appropriate mood & affect, normal judgment. - Labs CBC & Chem 7: 12/28/18 04:23 12/28/18 04:23 Labs: Abnormal Lab Results - Last 24 Hours (Table) 12/26/18 12/27/18 12/27/18 Range/Units 11:50 11:51 12:30 RBC 3.05 L (4.30-5.90) m/uL Hgb 9.0 L (13.0-17.5) gm/dL Hct 27.6 L (39.0-53.0) % Chloride (98-107) mmol/L Glucose (74-99) mg/dL POC Glucose (mg/dL) 149 H (75-99) mg/dL Total Bilirubin (0.2-1.3) mg/dL Total Protein (6.3-8.2) g/dL Albumin (3.5-5.0) g/dL Crossmatch See Detail 12/27/18 12/27/18 12/27/18 Range/Units 16:56 18:20 20:47 RBC 2.87 L (4.30-5.90) m/uL Hgb 8.6 L (13.0-17.5) gm/dL Hct 26.1 L (39.0-53.0) % Chloride (98-107) mmol/L Glucose (74-99) mg/dL POC Glucose (mg/dL) 134 H 203 H (75-99) mg/dL Total Bilirubin (0.2-1.3) mg/dL Total Protein (6.3-8.2) g/dL Albumin (3.5-5.0) g/dL Crossmatch 12/28/18 12/28/18 12/28/18 Range/Units 04:23 04:23 06:44 RBC 2.28 L (4.30-5.90) m/uL Hgb 7.0 L D (13.0-17.5) gm/dL Hct 20.8 L (39.0-53.0) % Chloride 112 H (98-107) mmol/L Glucose 106 H (74-99) mg/dL POC Glucose (mg/dL) 122 H (75-99) mg/dL Total Bilirubin 0.1 L (0.2-1.3) mg/dL Total Protein 4.9 L (6.3-8.2) g/dL Albumin 2.9 L (3.5-5.0) g/dL Crossmatch Assessment and Plan Plan: Assessment 1 acute lower GI bleeding post colonoscopy and resection of a colonic polyp that do not to be a tubular adenoma. The patient presented with lower GI bleed and the CAT scan of the abdomen and pelvis showed inflammatory changes involving the cecum, could be underlying see colitis/typhalitis post endoscopy and biopsy. Hemodynamically stable. Hemoglobin stable above 10. Note that the patient was also on antiplatelet agents for his underlying coronary artery disease utilizing a combination of aspirin and Brillinta. The patient is currently off anticoagulation or antiplatelet agents. The patient's hemoglobin is down to 7. Nevertheless, clinically, the patient is not showing any acute bleeding and the patient had a bowel movement that was brown this morning. No abdominal pain. Remains on the antibiotics that Zosyn regarding the inflammatory changes seen in the ascending colon in the cecal area. 2 coronary artery disease, post coronary stenting 3 paroxysmal atrial fibrillation currently in sinus 4 diabetes mellitus 5 hypertension 6 hyperlipidemia 7 obstructive sleep apnea 8 nephrolithiasis 9 gout 10 bipolar disorder/depression 11 history of gallstones 12 COPD maintained on Symbicort on outpatient basis currently on room air oxygen Plan Patient was given a unit of packed RBC by gastroenterology. Full liquid diet. Monitor hemoglobin. Came moved out of the intensive care unit. Continue IV Zosyn. No plans for repeating colonoscopy at this point in time. This will largely depend on his course during this current admission. We'll follow.
[2018-12-28 12:06] LABS: Glucose,Whole Blood 158 mg/dL (75-99)
[2018-12-28 12:37] LABS: Basophils # (A) 0.1 k/uL (0-0.2); Basophils % (A) 1 %; Eosinophils # (A) 0.2 k/uL (0-0.7); Eosinophils % (A) 3 %; HCT 25.1 % (39.0-53.0); Lymphocytes # (A) 1.1 k/uL (1.0-4.8); Lymphocytes % (A) 14 %; MCV 90.5 fL (80.0-100.0); Mean Platelet Volume 6.8; Monocytes # (A) 0.6 k/uL (0-1.0); Monocytes % (A) 8 %; Neutrophils # (A) 5.5 k/uL (1.3-7.7); Neutrophils % (A) 72 %; Platelet Count 218 k/uL (150-450); RBC 2.77 m/uL (4.30-5.90); RDW 15.2 % (11.5-15.5); WBC 7.6 k/uL (3.8-10.6)
--- NOTE | 2018-12-28 16:21 | PN ---
PROGRESS NOTE This patient was admitted with lower GI bleeding for colonoscopy. Patient is doing well. Denies any chest pain or shortness of breath. He does not have any more maroon- colored stool. Blood pressure is 145/62 mmHg. First and second heart sounds are normal. Lungs are clinically clear to auscultation and percussion. Patient's hemoglobin is now 8 grams. This patient had a prior stent placement in 2017. In view of that, we will discontinue the Brilinta and maintain the patient on only aspirin when the patient's bleeding is stabilized. MMODL / IJN: [id number] /
[2018-12-28 17:05] LABS: Glucose,Whole Blood 107 mg/dL (75-99)
--- NOTE | 2018-12-28 18:10 | P.PN ---
Subjective This is a pleasant 68 years old male with past medical history of atrial fibrillation, coronary artery disease, COPD, diabetes mellitus, hyperlipidemia, hypertension, sleep apnea on CPAP machine. Also history of gout and depressions with kidney stone. Patient presents with acute GI bleed and blood loss anemia and received one unit of blood transfusion in the emergency room. Patient has been followed closely by GI team. Most likely patient has bleeding from post polypectomy procedure. Patient blood pressure is been a stable. As well as his hemoglobin. Patient also has been followed by cardiology and pulmonary team. As he remains in the intensive care unit for further close monitoring. Objective - Vital Signs Vital signs: Vital Signs Temp 97.8 F 12/28/18 15:00 Pulse 88 12/28/18 16:00 Resp 18 12/28/18 16:00 BP 159/76 12/28/18 15:00 Pulse Ox 95 12/28/18 15:00 Intake & Output 12/27/18 12/28/18 12/28/18 18:59 06:59 18:59 Intake Total 2920 375 1810 Output Total 503 5 1 Balance 2417 370 1809 Weight 115 kg Intake: IV 900 375 900 Sodium Chloride 0.9% 1, 900 375 900 000 ml @ 75 mls/hr IV . [id number] [facility] Rx#:[id number] Intake, IV Titration 100 Amount Piperacillin-Tazobactam 3 100 .375 gm In Sodium Chloride 0.9% 100 ml @ 25 mls/hr IVPB Q8HR [facility] Rx# :[id number] Oral 1920 600 Blood Product 310 Rc As-1 Unit 310 [id number] Output: Urine 500 Stool 3 5 1 Other: Voiding Method Toilet Toilet Toilet # Voids 1 1 2 # Bowel Movements 1 - Exam GENERAL: The patient is alert and oriented x3, not in any acute distress. Pale HEENT: Pupils are round and equally reacting to light. EOMI. No scleral icterus. No conjunctival pallor. Normocephalic, atraumatic. No pharyngeal erythema. No thyromegaly. CARDIOVASCULAR: S1 and S2 present. No murmurs, rubs, or gallops. PULMONARY: Chest is clear to auscultation, no wheezing or crackles. ABDOMEN: Soft, nontender, nondistended, normoactive bowel sounds. No palpable organomegaly. MUSCULOSKELETAL: No joint swelling or deformity. EXTREMITIES: No cyanosis, clubbing, or pedal edema. NEUROLOGICAL: Gross neurological examination did not reveal any focal deficits. SKIN: No rashes. - Labs CBC & Chem 7: 12/28/18 12:01 12/28/18 04:23 Labs: Abnormal Lab Results - Last 24 Hours (Table) 12/26/18 12/27/18 12/27/18 Range/Units 11:50 18:20 20:47 RBC 2.87 L (4.30-5.90) m/uL Hgb 8.6 L (13.0-17.5) gm/dL Hct 26.1 L (39.0-53.0) % Chloride (98-107) mmol/L Glucose (74-99) mg/dL POC Glucose (mg/dL) 203 H (75-99) mg/dL Total Bilirubin (0.2-1.3) mg/dL Total Protein (6.3-8.2) g/dL Albumin (3.5-5.0) g/dL Crossmatch See Detail 12/28/18 12/28/18 12/28/18 Range/Units 04:23 04:23 06:44 RBC 2.28 L (4.30-5.90) m/uL Hgb 7.0 L D (13.0-17.5) gm/dL Hct 20.8 L (39.0-53.0) % Chloride 112 H (98-107) mmol/L Glucose 106 H (74-99) mg/dL POC Glucose (mg/dL) 122 H (75-99) mg/dL Total Bilirubin 0.1 L (0.2-1.3) mg/dL Total Protein 4.9 L (6.3-8.2) g/dL Albumin 2.9 L (3.5-5.0) g/dL Crossmatch 12/28/18 12/28/18 12/28/18 Range/Units 12:01 12:03 17:01 RBC 2.77 L (4.30-5.90) m/uL Hgb 8.0 L (13.0-17.5) gm/dL Hct 25.1 L (39.0-53.0) % Chloride (98-107) mmol/L Glucose (74-99) mg/dL POC Glucose (mg/dL) 158 H 107 H (75-99) mg/dL Total Bilirubin (0.2-1.3) mg/dL Total Protein (6.3-8.2) g/dL Albumin (3.5-5.0) g/dL Crossmatch Assessment and Plan Assessment: Acute lower GI bleeding with acute blood loss anemia. Mostly secondary to post- polypectomy. History of coronary artery disease, multiple stents Mild hyperkalemia, resolved History of atrial fibrillation Chronic obstructive pulmonary disease Diabetes mellitus type 2 Hyperlipidemia Hypertension Obstructive sleep apnea Obesity Kidney stones history History of bipolar disorder History of suicidal attempts in the past Plan: This is a pleasant 68 years old male who presents because of acute GI bleed. Patient is status post blood transfusion. Keep monitoring his hemoglobin and vitals closely. GI team are planning on advancing the diet. Continue with antibiotic. Cardiology and pulmonary team are following the case. Discontinue brilinta and continue with aspirin as per cardiology recommendation Labs and medication were reviewed.. Continue same treatment. Continue with symptomatic treatment. Resume home medication. Monitor lytes and vitals. DVT and GI prophylaxis. Further recommendations of the clinical course of the patient DVT prophylaxis: no heparin in view of GI bleed. GI Prophylaxis: PPI PT/OT: Pending Prognosis is guarded
[2018-12-28] MEDS: ARIPiprazole 5 MG TAB PO SCH (20:16)
[2018-12-28] MEDS: ISOSORBIDE MONONITRATE ER 30 MG TAB.ER.24H PO SCH (20:16)
[2018-12-28] MEDS: traZODone HCL 50 MG TAB PO SCH (20:16)
[2018-12-28 20:38] LABS: Glucose,Whole Blood 139 mg/dL (75-99)
[2018-12-29] MEDS: PIPERACILLIN-TAZOBACTAM 3.375 GM in SODIUM CHLORIDE 0.9% 100 ML IVPB SCH ×2 (00:36→08:15)
[2018-12-29 05:47] LABS: Basophils % (A) 1 %; Eosinophils # (A) 0.4 k/uL (0-0.7); Eosinophils % (A) 6 %; HCT 23.3 % (39.0-53.0); HGB 7.7 gm/dL (13.0-17.5); Lymphocytes # (A) 1.1 k/uL (1.0-4.8); Lymphocytes % (A) 17 %; MCH 30.1 pg (25.0-35.0); MCHC 33.1 g/dL (31.0-37.0); MCV 90.8 fL (80.0-100.0); Mean Platelet Volume 6.2; Monocytes # (A) 0.5 k/uL (0-1.0); Monocytes % (A) 8 %; Neutrophils # (A) 4.2 k/uL (1.3-7.7); Neutrophils % (A) 66 %; Platelet Count 216 k/uL (150-450); RBC 2.57 m/uL (4.30-5.90); RDW 15.4 % (11.5-15.5); WBC 6.3 k/uL (3.8-10.6)
[2018-12-29 05:55] LABS: Albumin 3.2 g/dL (3.5-5.0); Calcium 8.9 mg/dL (8.4-10.2); Potassium 4.4 mmol/L (3.5-5.1); Total Bilirubin 0.2 mg/dL (0.2-1.3); Total Protein 5.2 g/dL (6.3-8.2)
[2018-12-29 06:45] LABS: Glucose,Whole Blood 162 mg/dL (75-99)
[2018-12-29] MEDS: INSULIN ASPART (NovoLOG) 100 UNIT/ML VIAL SQ SCH ×7 (06:54→23:35)
[2018-12-29] MEDS: SYMBICORT 160-4.5 MCG INHALER INHALATION SCH ×2 (08:00→20:36)
[2018-12-29] MEDS: CITALOPRAM HYDROBROMIDE 20 MG TAB PO SCH (08:15)
[2018-12-29] MEDS: LISINOPRIL 10 MG TAB PO SCH ×2 (08:15→23:33)
[2018-12-29] MEDS: METOPROLOL TARTRATE 25 MG TAB PO SCH ×2 (08:15→23:33)
[2018-12-29] MEDS: PANTOPRAZOLE 40 MG/10 ML VIAL IVP SCH (08:15)
[2018-12-29] MEDS: INSULIN DETEMIR (LEVEMIR) 100 UNIT/ML SYR SQ SCH ×2 (08:41→23:35)
[2018-12-29 11:56] LABS: Glucose,Whole Blood 245 mg/dL (75-99)
--- NOTE | 2018-12-29 12:39 | P.PN ---
Subjective Progress Note Date: 12/29/18 Principal diagnosis: Rectal bleeding No active GI bleeding. Denies abdominal pain. Tolerating advance diet. Hemodynamically stable. Hemoglobin 7.7 receiving another receiving 1 unit of blood today. Objective - Vital Signs Vital signs: Vital Signs Temp 98.0 F 12/29/18 08:00 Pulse 77 12/29/18 09:00 Resp 18 12/29/18 08:00 BP 159/60 12/29/18 08:00 Pulse Ox 95 12/29/18 08:00 Intake & Output 12/28/18 12/29/18 12/29/18 18:59 06:59 18:59 Intake Total 1810 475 Output Total 1 Balance 1809 475 Weight 114.6 kg Intake: IV 900 125 Sodium Chloride 0.9% 1, 900 125 000 ml @ 75 mls/hr IV . [id number] [facility] Rx#:[id number] Oral 600 350 Blood Product 310 Rc As-1 Unit 310 [id number] Output: Stool 1 Other: Voiding Method Toilet Toilet Toilet # Voids 2 1 # Bowel Movements 1 1 - Exam General appearance: The patient is alert, oriented, in no acute distress. HET: Head is normocephalic and atraumatic. Pupils are equal and reactive. Oropharynx is clear without lesions. Neck: Supple without lymphadenopathy. Trachea midline. Heart: S1 S2. Regular rate and rhythm. Lungs: No crackles or wheezes are heard. Abdomen: Soft, nontender, nondistended with bowel sounds. No peritoneal signs. No palpable organomegaly or masses. Extremities: Normal skin color and turgor. No cyanosis, rash, ulceration, clubbing, or edema. Radial and pedal pulses are 2/4 bilaterally. Neurological: No focal deficits. Strength and sensation are grossly intact. - Labs CBC & Chem 7: 12/29/18 04:52 12/29/18 04:52 Labs: Abnormal Lab Results - Last 24 Hours (Table) 12/28/18 12/28/18 12/28/18 Range/Units 12:01 17:01 20:12 RBC 2.77 L (4.30-5.90) m/uL Hgb 8.0 L (13.0-17.5) gm/dL Hct 25.1 L (39.0-53.0) % Chloride (98-107) mmol/L Creatinine (0.66-1.25) mg/dL Glucose (74-99) mg/dL POC Glucose (mg/dL) 107 H 139 H (75-99) mg/dL Total Protein (6.3-8.2) g/dL Albumin (3.5-5.0) g/dL 12/29/18 12/29/18 12/29/18 Range/Units 04:52 04:52 06:42 RBC 2.57 L (4.30-5.90) m/uL Hgb 7.7 L (13.0-17.5) gm/dL Hct 23.3 L (39.0-53.0) % Chloride 109 H (98-107) mmol/L Creatinine 1.35 H (0.66-1.25) mg/dL Glucose 134 H (74-99) mg/dL POC Glucose (mg/dL) 162 H (75-99) mg/dL Total Protein 5.2 L (6.3-8.2) g/dL Albumin 3.2 L (3.5-5.0) g/dL 12/29/18 Range/Units 11:52 RBC (4.30-5.90) m/uL Hgb (13.0-17.5) gm/dL Hct (39.0-53.0) % Chloride (98-107) mmol/L Creatinine (0.66-1.25) mg/dL Glucose (74-99) mg/dL POC Glucose (mg/dL) 245 H (75-99) mg/dL Total Protein (6.3-8.2) g/dL Albumin (3.5-5.0) g/dL Assessment and Plan (1) Post-polypectomy bleeding Current Visit: Yes Status: Acute Code(s): SEL8019 - SNOMED Code(s): 249804588 (2) Anemia due to blood loss, acute Current Visit: Yes Status: Acute Code(s): D62 - ACUTE POSTHEMORRHAGIC ANEMIA SNOMED Code(s): 754112951 (3) GI bleed Current Visit: Yes Status: Acute Code(s): K92.2 - GASTROINTESTINAL HEMORRHAGE, UNSPECIFIED SNOMED Code(s): 99305934 Plan: 1. Continue low residue diet. Blood transfusion. CBC monitoring. We'll continue to follow closely with you. Re-surveillance colonoscopy not planned at this time but contingent on clinical course. Assessment and plan a care discussed with Dr. Ziegler
[2018-12-29] MEDS ORDERED: FUROSEMIDE 10 MG/ML 4 ML VIAL IV PRN (14:39)
--- NOTE | 2018-12-29 15:50 | P.PN ---
Subjective This is a pleasant 68 years old male with past medical history of atrial fibrillation, coronary artery disease, COPD, diabetes mellitus, hyperlipidemia, hypertension, sleep apnea on CPAP machine. Also history of gout and depressions with kidney stone. Patient presents with acute GI bleed and blood loss anemia and received one unit of blood transfusion in the emergency room. Patient has been followed closely by GI team. Most likely patient has bleeding from post polypectomy procedure. Patient blood pressure is been a stable. As well as his hemoglobin. Patient also has been followed by cardiology and pulmonary team. As he remains in the intensive care unit for further close monitoring. 12/29/2018 Patient is with no nausea vomiting, paced tolerating diet, no abdominal pain and he has bowel movement with no blood in it. His hemoglobin dropped today to 7.7. And her creatinine was increased slightly from 1.1 up to 1.35, doing the patient has extensive history of coronary artery disease and 60 stents in his heart as he was still in the, we going to transfuse him 1 unit of blood as higher hemoglobin is recommended for ischemic heart disease patients. Because patient has some prerenal is a tenia most likely which might benefit from the blood replacement he lost. As per cardiology's stop Brillinta and continue with aspirin. Discussed the case with GI team and agree with starting aspirin today and as well as with transfusion one unit of blood. I discussed the case with the patient and he agrees with blood transfusion, risks benefits and alternatives are explained. The at bedside Objective - Vital Signs Vital signs: Vital Signs Temp 98.0 F 12/29/18 08:00 Pulse 77 12/29/18 09:00 Resp 18 12/29/18 08:00 BP 124/64 12/29/18 12:54 Pulse Ox 95 12/29/18 08:00 Intake & Output 12/28/18 12/29/18 12/29/18 18:59 06:59 18:59 Intake Total 1810 475 600 Output Total 1 Balance 1809 475 600 Weight 114.6 kg Intake: IV 900 125 Sodium Chloride 0.9% 1, 900 125 000 ml @ 75 mls/hr IV . [id number] [facility] Rx#:[id number] Oral 600 350 600 Blood Product 310 Rc As-1 Unit 310 [id number] Output: Stool 1 Other: Voiding Method Toilet Toilet Toilet # Voids 2 1 3 # Bowel Movements 1 1 - Exam GENERAL: The patient is alert and oriented x3, not in any acute distress. Pale HEENT: Pupils are round and equally reacting to light. EOMI. No scleral icterus. No conjunctival pallor. Normocephalic, atraumatic. No pharyngeal erythema. No thyromegaly. CARDIOVASCULAR: S1 and S2 present. No murmurs, rubs, or gallops. PULMONARY: Chest is clear to auscultation, no wheezing or crackles. ABDOMEN: Soft, nontender, nondistended, normoactive bowel sounds. No palpable organomegaly. MUSCULOSKELETAL: No joint swelling or deformity. EXTREMITIES: No cyanosis, clubbing, or pedal edema. NEUROLOGICAL: Gross neurological examination did not reveal any focal deficits. SKIN: No rashes. - Labs CBC & Chem 7: 12/29/18 04:52 12/29/18 04:52 Labs: Abnormal Lab Results - Last 24 Hours (Table) 12/28/18 12/28/18 12/29/18 Range/Units 17:01 20:12 04:52 RBC 2.57 L (4.30-5.90) m/uL Hgb 7.7 L (13.0-17.5) gm/dL Hct 23.3 L (39.0-53.0) % Chloride (98-107) mmol/L Creatinine (0.66-1.25) mg/dL Glucose (74-99) mg/dL POC Glucose (mg/dL) 107 H 139 H (75-99) mg/dL Total Protein (6.3-8.2) g/dL Albumin (3.5-5.0) g/dL 12/29/18 12/29/18 12/29/18 Range/Units 04:52 06:42 11:52 RBC (4.30-5.90) m/uL Hgb (13.0-17.5) gm/dL Hct (39.0-53.0) % Chloride 109 H (98-107) mmol/L Creatinine 1.35 H (0.66-1.25) mg/dL Glucose 134 H (74-99) mg/dL POC Glucose (mg/dL) 162 H 245 H (75-99) mg/dL Total Protein 5.2 L (6.3-8.2) g/dL Albumin 3.2 L (3.5-5.0) g/dL Assessment and Plan Assessment: Acute lower GI bleeding with acute blood loss anemia. Mostly secondary to post- polypectomy. History of coronary artery disease, multiple stents Mild hyperkalemia, resolved History of atrial fibrillation Chronic obstructive pulmonary disease Diabetes mellitus type 2 Hyperlipidemia Hypertension Obstructive sleep apnea Obesity Kidney stones history History of bipolar disorder History of suicidal attempts in the past Plan: This is a pleasant 68 years old male who presents because of acute GI bleed. Patient is status post blood transfusion. Keep monitoring his hemoglobin and vitals closely. GI team are planning on advancing the diet. Continue with antibiotic. Cardiology and pulmonary team are following the case. Discontinue brilinta and continue with aspirin as per cardiology recommendation Labs and medication were reviewed.. Continue same treatment. Continue with symptomatic treatment. Resume home medication. Monitor lytes and vitals. DVT and GI prophylaxis. Further recommendations of the clinical course of the patient DVT prophylaxis: no heparin in view of GI bleed. GI Prophylaxis: PPI PT/OT: Pending Prognosis is guarded
--- NOTE | 2018-12-29 15:52 | P.PN ---
Subjective Progress Note Date: 12/29/18 68-year-old male patient presented to ED with GI bleed. The patient was having maroon colored stools. Note that the patient had a colonoscopy approximately 2 weeks ago that was done by Dr. Marcum and the colonoscopy showed a small to medium size flat polyp in the right colon that was removed by snare piecemeal methods. Diverticulosis without evidence of acute diverticulitis or strictures was also seen. The auto itself was benign. The polyp was a tubular adenoma. The patient himself was doing well till as morning when he started having maroon color stool, the patient had one bout at home and 2 bouts in the emergency department. This was bright red blood/maroon in color. The patient also had abdominal pain and cramping. He did not have any hematemesis. No melanotic stools. No history of any constipation. No fever chills or night sweats. He came into the ED and his serum level was 10. The patient was started on IV fluids and the patient was already given 2 L of IV fluids in the form of normal saline. Currently is on a maintenance of 0.9 at the rate of 75 mL an hour. His hemoglobin currently is at 10.0. Correlation profile is within normal limits. GI is a 27 with a creatinine of 1.2. Lactic acid is at 2.8. CAT scan of the abdomen was also done and showed a nonobstructive right renal stone without any evidence of hydronephrosis. There was diffuse thickening of the cecum and there was moderate fatty infiltration of the liver with a minimal right-sided pleural effusion. The patient got chest to the intensive care unit. He is afebrile. The patient is known to have coronary artery disease. The patient has had previous myocardial infarction stenting and the patient is on a combination of aspirin and Brilinta. On today's evaluation of 12/27/2018, the patient is doing well. The patient remains on clear liquid diet. The patient has a stable hemoglobin of 9.0. He the patient received a unit of blood yesterday. Since yesterday he had no further episodes of bleeding. He had another bowel movement this morning that showed that he stable without evidence of any significant bleeding and there was minimal amount of maroon color stool within the stool. The patient's hemoglobin is stable at 9.0. Hemodynamically stable. He was seen by GI and the treatment will be conservative watchful waiting for now. He is afebrile. He is hemodynamically stable. He is on IV Zosyn. No pain. At sugars under good control. He is on full liquid diet for now. Today's evaluation of 12/28/2018, the patient is still stable in the intensive care unit. The plan is to continue monitoring this patient treating him medically and symptomatically. No nausea or vomiting. No abdominal pain. Is taking clear liquid diet. Has been drop in hemoglobin down to 7.0 from a baseline of 8.6. He reports that he had a good bowel movement today that was brown. The bowel movements from yesterday was probably slightly bloody. I do not think is actively bleeding. No abdominal pain. No distention. No fever. No chills. No altered mentation. On 12/29/2018 I'm seeing this patient for a follow-up. Hemodynamically stable. No further episodes of GI bleeding. Abdomen is soft and nontender. The patient will be taken off the IV antibiotics and was switched to oral antibiotics. Hemoglobin today is at 7.7. Renal function is slightly worse compared to yesterday and the creatinine is up to 1.35. The patient has a mild component of creatinine elevation. The GFR is above 60. No other significant events overnight. The patient is conversing and talking and ambulating. No nausea. No vomiting. No abdominal distention. No mental status change. No other significant events overnight. Objective - Vital Signs Vital signs: Vital Signs Temp 98.0 F 12/29/18 08:00 Pulse 77 12/29/18 09:00 Resp 18 12/29/18 08:00 BP 124/64 12/29/18 12:54 Pulse Ox 95 12/29/18 08:00 Intake & Output 12/28/18 12/29/18 12/29/18 18:59 06:59 18:59 Intake Total 1810 475 600 Output Total 1 Balance 1809 475 600 Weight 114.6 kg Intake: IV 900 125 Sodium Chloride 0.9% 1, 900 125 000 ml @ 75 mls/hr IV . [id number] [facility] Rx#:[id number] Oral 600 350 600 Blood Product 310 Rc As-1 Unit 310 [id number] Output: Stool 1 Other: Voiding Method Toilet Toilet Toilet # Voids 2 1 3 # Bowel Movements 1 1 - Exam General: The patient is awake and alert, in no distress. Mild pallor noted. Eye: +3 mm pupils are equal, round and reactive to light, extra-ocular movements are intact. No nystagmus. There is normal conjunctiva bilaterally. No signs of icterus. Ears, nose, mouth and throat: There are moist mucous membranes and no oral lesions. Neck: The neck is supple, there is no tenderness or JVD. Cardiovascular: There is a regular rate and rhythm. No murmur, rub or gallop is appreciated. Respiratory: Lungs are clear to auscultation, respirations are non-labored, breath sounds are equal. No wheezes, stridor, rales, or rhonchi. Gastrointestinal: Obese, non-tender abdomen without masses or organomegaly noted. There is no rebound or guarding present. No CVA tenderness. Bowel sounds are unremarkable. Gross red blood per rectum. Musculoskeletal: Normal ROM, no tenderness. Strength 5/5. Sensation intact. Pulses equal bilaterally 2+. Neurological: A&O x 3. CN II-XII intact, There are no obvious motor or sensory deficits. Coordination appears grossly intact. Speech is normal. Skin: Skin is warm and dry and no rashes or lesions are noted. No LE edema. Psychiatric: Cooperative, appropriate mood & affect, normal judgment. - Labs CBC & Chem 7: 12/29/18 04:52 12/29/18 04:52 Labs: Abnormal Lab Results - Last 24 Hours (Table) 12/28/18 12/28/18 12/29/18 Range/Units 17:01 20:12 04:52 RBC 2.57 L (4.30-5.90) m/uL Hgb 7.7 L (13.0-17.5) gm/dL Hct 23.3 L (39.0-53.0) % Chloride (98-107) mmol/L Creatinine (0.66-1.25) mg/dL Glucose (74-99) mg/dL POC Glucose (mg/dL) 107 H 139 H (75-99) mg/dL Total Protein (6.3-8.2) g/dL Albumin (3.5-5.0) g/dL 12/29/18 12/29/18 12/29/18 Range/Units 04:52 06:42 11:52 RBC (4.30-5.90) m/uL Hgb (13.0-17.5) gm/dL Hct (39.0-53.0) % Chloride 109 H (98-107) mmol/L Creatinine 1.35 H (0.66-1.25) mg/dL Glucose 134 H (74-99) mg/dL POC Glucose (mg/dL) 162 H 245 H (75-99) mg/dL Total Protein 5.2 L (6.3-8.2) g/dL Albumin 3.2 L (3.5-5.0) g/dL Assessment and Plan Plan: Assessment 1 acute lower GI bleeding post colonoscopy and resection of a colonic polyp that do not to be a tubular adenoma. The patient presented with lower GI bleed and the CAT scan of the abdomen and pelvis showed inflammatory changes involving the cecum, could be underlying see colitis/typhalitis post endoscopy and biopsy. Hemodynamically stable. Hemoglobin stable above 10. Note that the patient was also on antiplatelet agents for his underlying coronary artery disease utilizing a combination of aspirin and Brillinta. The patient is currently off anticoagulation or antiplatelet agents. The patient's hemoglobin is stable at 7.7 and there is no evidence of any bleeding for now. 2 coronary artery disease, post coronary stenting 3 paroxysmal atrial fibrillation currently in sinus 4 diabetes mellitus 5 hypertension 6 hyperlipidemia 7 obstructive sleep apnea 8 nephrolithiasis 9 gout 10 bipolar disorder/depression 11 history of gallstones 12 COPD maintained on Symbicort on outpatient basis currently on room air oxygen Plan Continued IV antibiotics and switched patient to oral Augmentin. Hemoglobin is stable. Gradually advance diet as tolerated. Abdominal exam is soft and the patient can be transferred to a medical floor. Continue Symbicort as an outpatient basis regarding the COPD. Cardiac the patient is on room air oxygen. Lecher is also under good control as the patient's insulin dose has been lowered due to his diminished oral intake. His lower extremity adjusted as the patient's diet improves.
[2018-12-29 17:16] LABS: Glucose,Whole Blood 225 mg/dL (75-99)
[2018-12-29] MEDS: ASPIRIN 81 MG PO SCH (17:29)
--- NOTE | 2018-12-29 18:39 | PN ---
PROGRESS NOTE This patient came with a lower GI bleeding. Patient remains stable. Denies any chest pain or shortness of breath. The patient's bleeding has stabilized. Vital signs remains stable. Hemoglobin is 7.7. Electrolytes are normal. First and second heart sounds are normal. I will recommend to resume the patient on aspirin when it is okay with the GI service. VANE / MICAELAN: [id number] /
[2018-12-29] MEDS: SODIUM CHLORIDE 0.9% 1,000 ML IV SCH (19:45)
[2018-12-29 19:52] LABS: Glucose,Whole Blood 145 mg/dL (75-99)
[2018-12-29] MEDS: traZODone HCL 50 MG TAB PO SCH (23:33)
[2018-12-29] MEDS: ISOSORBIDE MONONITRATE ER 30 MG TAB.ER.24H PO SCH (23:33)
[2018-12-29] MEDS: AMOXIC-POT CLAV 875-125MG 1 EACH TAB PO SCH (23:44)
[2018-12-29] MEDS: ARIPiprazole 5 MG TAB PO SCH (23:45)
[2018-12-30 07:19] LABS: Glucose,Whole Blood 272 mg/dL (75-99)
[2018-12-30 07:39] VITALS: BP 132/71; PULSE 73; RESP 16; TEMP 98.3
[2018-12-30] MEDS: PANTOPRAZOLE 40 MG/10 ML VIAL IVP SCH (08:31)
[2018-12-30] MEDS: AMOXIC-POT CLAV 875-125MG 1 EACH TAB PO SCH (08:31)
[2018-12-30] MEDS: CITALOPRAM HYDROBROMIDE 20 MG TAB PO SCH (08:31)
[2018-12-30] MEDS: METOPROLOL TARTRATE 25 MG TAB PO SCH (08:31)
[2018-12-30] MEDS: LISINOPRIL 10 MG TAB PO SCH (08:31)
[2018-12-30] MEDS: INSULIN ASPART (NovoLOG) 100 UNIT/ML VIAL SQ SCH ×4 (08:32→12:58)
[2018-12-30] MEDS: ASPIRIN 81 MG PO SCH (08:33)
[2018-12-30] MEDS: INSULIN DETEMIR (LEVEMIR) 100 UNIT/ML SYR SQ SCH (08:33)
[2018-12-30] MEDS ORDERED: ASPIRIN 81 MG PO SCH (09:00)
[2018-12-30] MEDS: SYMBICORT 160-4.5 MCG INHALER INHALATION SCH (09:33)
[2018-12-30 10:08] LABS: Basophils % (A) 1 %; Eosinophils # (A) 0.3 k/uL (0-0.7); Eosinophils % (A) 4 %; HCT 28.8 % (39.0-53.0); Lymphocytes # (A) 0.9 k/uL (1.0-4.8); Lymphocytes % (A) 12 %; MCH 29.6 pg (25.0-35.0); MCHC 32.7 g/dL (31.0-37.0); MCV 90.4 fL (80.0-100.0); Mean Platelet Volume 6.9; Monocytes # (A) 0.5 k/uL (0-1.0); Monocytes % (A) 7 %; Neutrophils # (A) 5.4 k/uL (1.3-7.7); Neutrophils % (A) 75 %; Platelet Count 257 k/uL (150-450); RBC 3.19 m/uL (4.30-5.90); RDW 15.3 % (11.5-15.5); WBC 7.2 k/uL (3.8-10.6)
[2018-12-30 10:11] LABS: HGB 9.4 gm/dL (13.0-17.5)
[2018-12-30 10:16] LABS: Calcium 9.2 mg/dL (8.4-10.2); Potassium 4.7 mmol/L (3.5-5.1)
[2018-12-30 11:55] LABS: Glucose,Whole Blood 201 mg/dL (75-99)
--- NOTE | 2018-12-30 12:33 | P.PN ---
Subjective Progress Note Date: 12/30/18 Principal diagnosis: Rectal bleeding No active GI bleeding. Denies abdominal pain. Tolerating advance diet. Requesting discharge. Hemodynamically stable. Hemoglobin 9.4. Objective - Vital Signs Vital signs: Vital Signs Temp 98.3 F 12/30/18 07:00 Pulse 73 12/30/18 07:00 Resp 16 12/30/18 07:00 BP 132/71 12/30/18 07:00 Pulse Ox 93 L 12/30/18 07:00 Intake & Output 12/29/18 12/30/18 12/30/18 18:59 06:59 18:59 Intake Total 600 846 Balance 600 846 Weight 116 kg Intake: Oral 600 536 Blood Product 0 310 Rc Pheresis 2 As3 Unit 0 310 [id number] Other: Voiding Method Toilet Toilet # Voids 3 2 - Exam General appearance: The patient is alert, oriented, in no acute distress. HET: Head is normocephalic and atraumatic. Pupils are equal and reactive. Oropharynx is clear without lesions. Neck: Supple without lymphadenopathy. Trachea midline. Heart: S1 S2. Regular rate and rhythm. Lungs: No crackles or wheezes are heard. Abdomen: Soft, nontender, nondistended with bowel sounds. No peritoneal signs. No palpable organomegaly or masses. Extremities: Normal skin color and turgor. No cyanosis, rash, ulceration, clubbing, or edema. Radial and pedal pulses are 2/4 bilaterally. Neurological: No focal deficits. Strength and sensation are grossly intact. - Labs CBC & Chem 7: 12/30/18 09:42 12/30/18 09:42 Labs: Abnormal Lab Results - Last 24 Hours (Table) 12/26/18 12/29/18 12/29/18 Range/Units 11:50 14:49 17:01 RBC (4.30-5.90) m/uL Hgb (13.0-17.5) gm/dL Hct (39.0-53.0) % Lymphocytes # (1.0-4.8) k/uL Glucose (74-99) mg/dL POC Glucose (mg/dL) 225 H (75-99) mg/dL Crossmatch See Detail See Detail 12/29/18 12/30/18 12/30/18 Range/Units 19:38 07:07 09:42 RBC 3.19 L (4.30-5.90) m/uL Hgb 9.4 L D (13.0-17.5) gm/dL Hct 28.8 L (39.0-53.0) % Lymphocytes # 0.9 L (1.0-4.8) k/uL Glucose (74-99) mg/dL POC Glucose (mg/dL) 145 H 272 H (75-99) mg/dL Crossmatch 12/30/18 12/30/18 Range/Units 09:42 11:42 RBC (4.30-5.90) m/uL Hgb (13.0-17.5) gm/dL Hct (39.0-53.0) % Lymphocytes # (1.0-4.8) k/uL Glucose 268 H (74-99) mg/dL POC Glucose (mg/dL) 201 H (75-99) mg/dL Crossmatch Assessment and Plan (1) Post-polypectomy bleeding Narrative/Plan: Stable no active GI bleeding for more than 48 hours. Hemoglobin 9.4 today. Current Visit: Yes Status: Acute Code(s): [id number] - SNOMED Code(s): 278515256 (2) Anemia due to blood loss, acute Current Visit: Yes Status: Acute Code(s): D62 - ACUTE POSTHEMORRHAGIC ANEMIA SNOMED Code(s): 289027680 (3) GI bleed Current Visit: Yes Status: Acute Code(s): K92.2 - GASTROINTESTINAL HEMORRHAGE, UNSPECIFIED SNOMED Code(s): 02532519 Plan: 1. Continue low residue diet. Agreeable for discharge from a GI standpoint. We'll follow on an as-needed basis. Assessment and plan a care discussed with Dr. Ziegler
--- NOTE | 2018-12-30 15:38 | P.PN ---
Subjective Progress Note Date: 12/30/18 Principal diagnosis: Acute GI bleeding 68-year-old male patient presented to ED with GI bleed. The patient was having maroon colored stools. Note that the patient had a colonoscopy approximately 2 weeks ago that was done by Dr. Marcum and the colonoscopy showed a small to medium size flat polyp in the right colon that was removed by snare piecemeal methods. Diverticulosis without evidence of acute diverticulitis or strictures was also seen. The auto itself was benign. The polyp was a tubular adenoma. The patient himself was doing well till as morning when he started having maroon color stool, the patient had one bout at home and 2 bouts in the emergency department. This was bright red blood/maroon in color. The patient also had abdominal pain and cramping. He did not have any hematemesis. No melanotic stools. No history of any constipation. No fever chills or night sweats. He came into the ED and his serum level was 10. The patient was started on IV fluids and the patient was already given 2 L of IV fluids in the form of normal saline. Currently is on a maintenance of 0.9 at the rate of 75 mL an hour. His hemoglobin currently is at 10.0. Correlation profile is within normal limits. GI is a 27 with a creatinine of 1.2. Lactic acid is at 2.8. CAT scan of the abdomen was also done and showed a nonobstructive right renal stone without any evidence of hydronephrosis. There was diffuse thickening of the cecum and there was moderate fatty infiltration of the liver with a minimal right-sided pleural effusion. The patient got chest to the intensive care unit. He is afebrile. The patient is known to have coronary artery disease. The patient has had previous myocardial infarction stenting and the patient is on a combination of aspirin and Brilinta. On today's evaluation of 12/27/2018, the patient is doing well. The patient remains on clear liquid diet. The patient has a stable hemoglobin of 9.0. He the patient received a unit of blood yesterday. Since yesterday he had no further episodes of bleeding. He had another bowel movement this morning that showed that he stable without evidence of any significant bleeding and there was minimal amount of maroon color stool within the stool. The patient's hemoglobin is stable at 9.0. Hemodynamically stable. He was seen by GI and the treatment will be conservative watchful waiting for now. He is afebrile. He is hemodynamically stable. He is on IV Zosyn. No pain. At sugars under good control. He is on full liquid diet for now. Today's evaluation of 12/28/2018, the patient is still stable in the intensive care unit. The plan is to continue monitoring this patient treating him medically and symptomatically. No nausea or vomiting. No abdominal pain. Is taking clear liquid diet. Has been drop in hemoglobin down to 7.0 from a baseline of 8.6. He reports that he had a good bowel movement today that was brown. The bowel movements from yesterday was probably slightly bloody. I do not think is actively bleeding. No abdominal pain. No distention. No fever. No chills. No altered mentation. On 12/29/2018 I'm seeing this patient for a follow-up. Hemodynamically stable. No further episodes of GI bleeding. Abdomen is soft and nontender. The patient will be taken off the IV antibiotics and was switched to oral antibiotics. Hemoglobin today is at 7.7. Renal function is slightly worse compared to yesterday and the creatinine is up to 1.35. The patient has a mild component of creatinine elevation. The GFR is above 60. No other significant events overnight. The patient is conversing and talking and ambulating. No nausea. No vomiting. No abdominal distention. No mental status change. No other significant events overnight. On 12/30/2018 patient seen in follow-up on medical surgical floor. There has been no further bleeding, she is hemodynamically stable, today's hemoglobin is 9.4, he shouldn't did receive 3 units of packed red blood cells during this admission. Patient is tolerating ambulation, no shortness of breath or chest pain. We will well, denies and abdominal pain, tolerating diet. Patient is being discharged home today. Objective - Vital Signs Vital signs: Vital Signs Temp 98.3 F 12/30/18 07:00 Pulse 73 12/30/18 07:00 Resp 16 12/30/18 07:00 BP 132/71 12/30/18 07:00 Pulse Ox 93 L 12/30/18 07:00 Intake & Output 12/29/18 12/30/18 12/30/18 18:59 06:59 18:59 Intake Total 600 846 Balance 600 846 Weight 116 kg Intake: Oral 600 536 Blood Product 0 310 Rc Pheresis 2 As3 Unit 0 310 [id number] Other: Voiding Method Toilet Toilet # Voids 3 2 3 - Exam GENERAL EXAM: Alert, hasn't, 68-year-old white male, comfortable in no apparent distress. HEAD: Normocephalic/atraumatic. EYES: Normal reaction of pupils, equal size. Conjunctiva pink, sclera white. NOSE: Clear with pink turbinates. THROAT: No erythema or exudates. NECK: No masses, no JVD, no thyroid enlargement, no adenopathy. CHEST: No chest wall deformity. Symmetrical expansion. LUNGS: Equal air entry with no crackles, wheeze, rhonchi or dullness. CVS: Regular rate and rhythm, normal S1 and S2, no gallops, no murmurs, no rubs ABDOMEN: Soft, nontender. No hepatosplenomegaly, normal bowel sounds, no guarding or rigidity. EXTREMITIES: No clubbing, no edema, no cyanosis, 2+ pulses and upper and lower extremities. MUSCULOSKELETAL: Muscle strength and tone normal. SPINE: No scoliosis or deformity SKIN: No rashes CENTRAL NERVOUS SYSTEM: Alert and oriented -3. No focal deficits, tone is normal in all 4 extremities. PSYCHIATRIC: Alert and oriented -3. Appropriate affect. Intact judgment and insight. - Labs CBC & Chem 7: 12/30/18 09:42 12/30/18 09:42 Labs: Abnormal Lab Results - Last 24 Hours (Table) 12/26/18 12/29/18 12/29/18 Range/Units 11:50 14:49 17:01 RBC (4.30-5.90) m/uL Hgb (13.0-17.5) gm/dL Hct (39.0-53.0) % Lymphocytes # (1.0-4.8) k/uL Glucose (74-99) mg/dL POC Glucose (mg/dL) 225 H (75-99) mg/dL Crossmatch See Detail See Detail 12/29/18 12/30/18 12/30/18 Range/Units 19:38 07:07 09:42 RBC 3.19 L (4.30-5.90) m/uL Hgb 9.4 L D (13.0-17.5) gm/dL Hct 28.8 L (39.0-53.0) % Lymphocytes # 0.9 L (1.0-4.8) k/uL Glucose (74-99) mg/dL POC Glucose (mg/dL) 145 H 272 H (75-99) mg/dL Crossmatch 12/30/18 12/30/18 Range/Units 09:42 11:42 RBC (4.30-5.90) m/uL Hgb (13.0-17.5) gm/dL Hct (39.0-53.0) % Lymphocytes # (1.0-4.8) k/uL Glucose 268 H (74-99) mg/dL POC Glucose (mg/dL) 201 H (75-99) mg/dL Crossmatch Assessment and Plan Plan: 1 acute lower GI bleeding post colonoscopy and resection of a colonic polyp that do not to be a tubular adenoma. The patient presented with lower GI bleed and the CAT scan of the abdomen and pelvis showed inflammatory changes involving the cecum, could be underlying see colitis/typhalitis post endoscopy and biopsy. Hemodynamically stable. Hemoglobin stable above 10. Note that the patient was also on antiplatelet agents for his underlying coronary artery disease utilizing a combination of aspirin and Brillinta. The patient is currently off anticoagulation or antiplatelet agents. The patient's hemoglobin is stable at 7.7 and there is no evidence of any bleeding for now. 2 coronary artery disease, post coronary stenting 3 paroxysmal atrial fibrillation currently in sinus 4 diabetes mellitus 5 hypertension 6 hyperlipidemia 7 obstructive sleep apnea 8 nephrolithiasis 9 gout 10 bipolar disorder/depression 11 history of gallstones 12 COPD maintained on Symbicort on outpatient basis currently on room air oxygen Plan: Patient is hemodynamically stable, hemoglobin is stable, no further bleeding, no abdominal pain, anticipate discharge home today. I performed a history & physical examination of the patient and discussed their management with my nurse practitioner, Bozena Fairchild. I reviewed the nurse practitioner's note and agree with the documented findings and plan of care. Lung sounds are clear. The findings and the impression was discussed with the patient. I attest to the documentation by the nurse practitioner. Time with Patient: Less than 30
== END 2018-12-30 15:01 | disposition home or self-care (01) | DRG 920 ==
LOC: EC 10:08 → 3SCARD 13:09 → 2SICU 14:09 → 4SSUR 12-29 19:20
PROVIDERS: ADMIT Internal Medicine; ATTEND Internal Medicine
PROC: 30233N1 Transfusion of Nonautologous Red Blood Cells into Peripheral Vein, Percutaneous Approach (ICD-10-PCS; principal; 2018-12-26)
DX: K91.840 Postprocedural hemorrhage of a digestive system organ or structure following a digestive system procedure (principal); F31.30 Bipolar disorder, current episode depressed, mild or moderate severity, unspecified; D62 Acute posthemorrhagic anemia; I48.0 Paroxysmal atrial fibrillation; E87.5 Hyperkalemia; J44.9 Chronic obstructive pulmonary disease, unspecified; K76.0 Fatty (change of) liver, not elsewhere classified; K57.90 Diverticulosis of intestine, part unspecified, without perforation or abscess without bleeding; K80.20 Calculus of gallbladder without cholecystitis without obstruction; E11.9 Type 2 diabetes mellitus without complications; N20.0 Calculus of kidney; E78.5 Hyperlipidemia, unspecified; I25.10 Atherosclerotic heart disease of native coronary artery without angina pectoris; I10 Essential (primary) hypertension; G47.33 Obstructive sleep apnea (adult) (pediatric); I25.2 Old myocardial infarction; E66.9 Obesity, unspecified; Z68.36 Body mass index [BMI] 36.0-36.9, adult; Z79.82 Long term (current) use of aspirin; Z79.51 Long term (current) use of inhaled steroids; Z79.4 Long term (current) use of insulin; Z79.02 Long term (current) use of antithrombotics/antiplatelets; Z79.899 Other long term (current) drug therapy; Z99.89 Dependence on other enabling machines and devices; Z95.5 Presence of coronary angioplasty implant and graft; Z87.442 Personal history of urinary calculi; Z87.39 Personal history of other diseases of the musculoskeletal system and connective tissue; Z87.891 Personal history of nicotine dependence; Z87.19 Personal history of other diseases of the digestive system; Z91.5 Personal history of self-harm; Z98.42 Cataract extraction status, left eye; Z98.41 Cataract extraction status, right eye; Y83.8 Other surgical procedures as the cause of abnormal reaction of the patient, or of later complication, without mention of misadventure at the time of the procedure; Z82.49 Family history of ischemic heart disease and other diseases of the circulatory system; Z82.5 Family history of asthma and other chronic lower respiratory diseases
CPT/HCPCS: 36415; 74177; 80048; 80053; 81003; 83605; 83735; 84484; 85025; 85610; 85730; 86850; 86900; 86901; 86920; 93005; 94640; 94760; 96361; 96374; 99285

== ENCOUNTER → 2019-02-23 | Outpatient (CLI) | payer OTHER ==
[2019-02-23 10:10] LABS: HCT 37.9 % (39.0-53.0); MCH 29.8 pg (25.0-35.0); MCHC 33.4 g/dL (31.0-37.0); MCV 89.1 fL (80.0-100.0); Mean Platelet Volume 6.9; Platelet Count 259 k/uL (150-450); RBC 4.25 m/uL (4.30-5.90); RDW 14.4 % (11.5-15.5)
[2019-02-23 10:11] LABS: HGB 12.7 gm/dL (13.0-17.5)
[2019-02-23 17:04] LABS: Albumin 4.3 g/dL (3.80-4.90); Albumin/Globulin Ratio 2.39 (1.60-3.17); Anion Gap 8.7 mmol/L (4.00-12.00); Calcium 9.5 mg/dL (8.7-10.3); Carbon Dioxide 27.3 mmol/L (21.6-31.8); Globulin 1.8 g/dL (1.6-3.3); LDL Cholesterol,Calculated 8.8 mg/dL (0.0-131.0); Potassium 4.4 mmol/L (3.5-5.5); Total Bilirubin 0.2 mg/dL (0.2-1.2); Total Protein 6.1 g/dL (6.2-8.2); VLDL Calculation 46.2 mg/dL (5.00-40.00)
== END | disposition home or self-care (01) ==
LOC: LABWHC1 08:34
PROVIDERS: ATTEND Internal Medicine Interventional Cardiology
DX: E78.2 Mixed hyperlipidemia (principal); D50.0 Iron deficiency anemia secondary to blood loss (chronic)
CPT/HCPCS: 36415; 80053; 80061; 85027

== ENCOUNTER → 2019-05-27 | Outpatient (CLI) | payer OTHER ==
--- NOTE | 2019-05-27 13:06 | MR ---
EXAMINATION TYPE: MR knee LT wo con DATE OF EXAM: 05/27/2019 COMPARISON: No recent exams available for comparison HISTORY: Left knee pain TECHNIQUE: Multiplanar, multisequence imaging of the left knee is performed without IV contrast. FINDINGS: MEDIAL MENISCUS: There is a complex tear of the posterior horn of the medial meniscus with predominan t obliquely component but additional radial component seen. There is extent into the meniscal body an d meniscal root without meniscal full-thickness tear. There is also associated meniscal extrusion tyron sured 4 mm. No significant parameniscal cyst. LATERAL MENISCUS: Anterior and posterior horns are intact without tear. CRUCIATE LIGAMENTS: The anterior and posterior cruciate ligaments are intact and unremarkable. COLLATERAL LIGAMENTS: The lateral collateral ligament complex is intact. There is thickening of the p roximal medial collateral ligament there is also discontinuity of the deep fibers of the medial colla teral ligament proximally and undulation of the meniscal femoral ligament. Subcutaneous fat stranding is seen superficial and deep to the medial collateral ligament. EXTENSOR MECHANISM: Visualized quadriceps and patellar tendons are intact. However there is slight i ncreased signal of the originating fibers of the patellar tendon and insertional fibers of the dane ceps tendon. EFFUSION: Very small joint effusion. POPLITEAL CYST: There is a small popliteal cyst. TRICOMPARTMENT SPACES: There are very small tricompartmental osteophytes. T2/T1 hypointense punctate medial femoral condylar probable bone island is incidentally noted. CARTILAGE: Patellofemoral compartment cartilage is overall maintained. Slight signal heterogeneity of the lateral compartment cartilage and medial compartment cartilage with undermining of the anterior nonweightbearing surface of the medial femoral condyle and partial-thickness defect of the weightbear ing surface measuring approximately 1.8 cm. BONE MARROW SIGNAL: No focal abnormal marrow signal is appreciated. OTHER: Nonspecific subcutaneous fat stranding is seen of the suprapatellar, prepatellar, and predomi nantly of the infrapatellar subcutaneous tissues. Increased signal in the insertional fibers of the p opliteus tendon. This is indicative of mild degree tendinosis. Ganglion cyst is seen lateral to the i nsertion of the semimembranosus. Slight increased signal insertional fibers is also noted. IMPRESSION: 1. Complex tear of the posterior horn of the medial meniscus, predominantly oblique with a radial com ponent extending into the meniscal body with associated 4 mm meniscal extrusion. 2. Low-grade partial-thickness tear of the deep fibers of the proximal medial collateral ligament and meniscal femoral ligament with MCL bursitis and overlying subcutaneous edema. 3. Mild tendinosis of the insertional fibers of the quadriceps tendon, originating fibers of the jason llar tendon, insertional fibers of the semimembranosus, and insertional fibers of the popliteus. 4. Mild tricompartmental arthrosis and chondrosis with partial-thickness defect of the weightbearing surface of the medial femoral condyle measuring 1.8 cm.
--- NOTE | 2019-05-27 13:19 | MR ---
EXAMINATION TYPE: MR knee RT wo con DATE OF EXAM: 05/27/2019 COMPARISON: No recent examinations available for comparison. HISTORY: Right knee pain TECHNIQUE: Multiplanar, multisequence imaging of the right knee is performed without IV contrast. FINDINGS: MEDIAL MENISCUS: There is an oblique tear of the posterior horn of the medial meniscus contiguous wit h the inferior articular surface. Very small radial tear of the anterior posterior horn of the medial meniscus is seen at its free edge. Anterior horn appears intact and unremarkable. LATERAL MENISCUS: There is a radial tear of the posterior horn of the lateral meniscus with displaced meniscal fragment seen in the lateral tibial recess are inferior and lateral to the tibial plateau. CRUCIATE LIGAMENTS: The anterior and posterior cruciate ligaments are intact and unremarkable. COLLATERAL LIGAMENTS: The medial collateral ligament and lateral collateral ligament complex are inta ct. Very minimal increased signal seen superficial and deep to the medial collateral ligament suggest ing mild MCL bursitis as there is no discontinuity of the medial collateral ligament. EXTENSOR MECHANISM: Visualized quadriceps and patellar tendons are intact. Very mild increased signal is seen of the insertional fibers of the quadriceps tendon and origin fibers of the patellar tendon with overlying subcutaneous edema. EFFUSION: No significant suprapatellar joint effusion. POPLITEAL CYST: Small popliteal cyst is multiloculated. TRICOMPARTMENT SPACES: There are mild tricompartmental osteophytes present. CARTILAGE: There is a partial thickness defect of the medial aspect of the lateral femoral condyle me asuring 1.4 cm. There is signal heterogeneity of the medial compartment cartilage with focal fissurin g of the weightbearing surface and thinning throughout. Patellofemoral cartilage is grossly maintaine d. BONE MARROW SIGNAL: No focal abnormal marrow signal is appreciated. OTHER: Generalized mild subcutaneous edema of the knee. IMPRESSION: 1. Oblique tear of posterior horn of the medial meniscus contiguous with the intra-articular surface and very small radial tear of the anterior free edge of the posterior horn of the medial meniscus. 2. Displaced radial tear of the posterior horn of the lateral collateral ligament with 2 mm displaced fragment in the lateral tibial recess. 3. Findings suggesting very mild medial collateral ligament bursitis. No discontinuity of the medial collateral ligament. 4. Generalized mild subcutaneous edema of the knee. 5. Mild tricompartmental arthrosis and chondrosis. 6. Very mild insertional fiber tendinosis of the quadriceps tendon and originating fibers tendinosis of the patellar tendon.
== END | disposition home or self-care (01) ==
LOC: RADMRIMAIN 11:03
DX: S83.241A Other tear of medial meniscus, current injury, right knee, initial encounter (principal); S83.421A Sprain of lateral collateral ligament of right knee, initial encounter; S83.232A Complex tear of medial meniscus, current injury, left knee, initial encounter; S83.412A Sprain of medial collateral ligament of left knee, initial encounter; M17.0 Bilateral primary osteoarthritis of knee; M70.52 Other bursitis of knee, left knee

== ENCOUNTER → 2019-06-29 | Outpatient (CLI) | payer OTHER ==
[2019-06-29 15:49] LABS: Hemoglobin A1C 6.9 % (4.0-6.0)
[2019-06-29 16:02] LABS: African American GFR (CKD) 71.6 (60.0-200.0); Albumin 4.3 g/dL (3.80-4.90); Albumin/Globulin Ratio 2.05 (1.60-3.17); BUN/Creat Ratio 16.67 Ratio (12.00-20.00); Calcium 9.4 mg/dL (8.7-10.3); Chol/HDL Ratio 2.8; Globulin 2.1 g/dL (1.6-3.3); LDL Cholesterol,Calculated 10.6 mg/dL (0.0-131.0); Magnesium 1.4 mg/dL (1.5-2.4); Potassium 4.4 mmol/L (3.5-5.5); Total Bilirubin 0.3 mg/dL (0.3-1.2); Total Protein 6.4 g/dL (6.2-8.2); VLDL Calculation 61.4 mg/dL (5.00-40.00)
== END | disposition home or self-care (01) ==
LOC: LABWHC1 08:50
PROVIDERS: ATTEND Internal Medicine Endocrinology, Diabetes & Metabolism
DX: E11.65 Type 2 diabetes mellitus with hyperglycemia (principal); E78.2 Mixed hyperlipidemia; E83.42 Hypomagnesemia; I10 Essential (primary) hypertension
CPT/HCPCS: 36415; 80053; 80061; 82043; 82570; 83036; 83735; 84443

== ENCOUNTER → 2019-08-25 | Outpatient (CLI) | payer OTHER ==
[2019-08-25 12:34] LABS: Potassium 4.4 mmol/L (3.5-5.1)
[2019-08-25 12:36] LABS: Basophils # (A) 0.1 k/uL (0-0.2); Basophils % (A) 1 %; Eosinophils # (A) 0.2 k/uL (0-0.7); Eosinophils % (A) 3 %; HCT 38.1 % (39.0-53.0); Lymphocytes # (A) 1.1 k/uL (1.0-4.8); Lymphocytes % (A) 18 %; MCH 30.1 pg (25.0-35.0); MCHC 34.2 g/dL (31.0-37.0); Mean Platelet Volume 5.7; Monocytes # (A) 0.5 k/uL (0-1.0); Monocytes % (A) 9 %; Neutrophils # (A) 3.7 k/uL (1.3-7.7); Neutrophils % (A) 64 %; Platelet Count 296 k/uL (150-450); RBC 4.33 m/uL (4.30-5.90); RDW 13.9 % (11.5-15.5); WBC 5.7 k/uL (3.8-10.6)
== END | disposition home or self-care (01) ==
LOC: LABPAT 11:01
PROVIDERS: ATTEND Orthopaedic Surgery
DX: Z01.812 Encounter for preprocedural laboratory examination (principal); M23.91 Unspecified internal derangement of right knee
CPT/HCPCS: 36415; 80051; 85025

== ENCOUNTER 2019-09-08 10:54 | Day surgery (SDC) | payer OTHER ==
[2019-09-06 11:31] VITALS: BMI 35.9
--- NOTE | 2019-09-07 14:04 | HP ---
HISTORY AND PHYSICAL DATE OF SERVICE: 09/08/2019 Johnson Rudolph is a 68-year-old patient seen with progressive right knee pain. We discussed options for treatment. He elected to proceed with right knee arthroscopy. Consent was obtained. PAST MEDICAL HISTORY: Insulin-dependent diabetes, hypertension, asthma. PAST SURGICAL HISTORY: Noncontributory. MEDICATIONS: Abilify, insulin, lisinopril, metformin, Proventil, Singulair. ALLERGIES: None. SOCIAL HISTORY: Denies current tobacco use. PHYSICAL EVALUATION OF THE RIGHT KNEE: Range of motion 0-135, tenderness along the mediolateral joint lines, positive medial Andriy's, ligaments stable, hip rotation without pain. Distal neurovascular exam is intact. RADIOGRAPHS OF THE RIGHT KNEE: Revealed mild osteoarthritis. A right knee MRI revealed medial and lateral meniscal tears. IMPRESSION: Internal derangement, right knee with medial and lateral meniscal tears. PLAN: Right knee arthroscopy with partial meniscectomy and debridement. MMODL / IJN: [id number] /
[~2019-09-08 10:54] MED LIST changes: +HYDROmorphone 0.5 MG/0.5 ML SYRINGE IVP PRN; -LIDOCAINE 1% 20 ML VIAL (10MG/ML) FOR IV START INTRADERMA PRN; +ONDANSETRON 4 MG/2 ML VIAL IVP PRN
[2019-09-08 11:44] LABS: Glucose,Whole Blood 203 mg/dL (75-99)
[2019-09-08] MEDS ORDERED: INSULIN ASPART (NovoLOG) 100 UNIT/ML VIAL SQ ONE (11:59)
[2019-09-08] MEDS ORDERED: DEXAMETHASONE SOD PHOSPHATE 10 MG/ML 1 ML VIAL IV ONE (12:00)
[2019-09-08] MEDS ORDERED: LIDOCAINE 1% 20 ML VIAL (10MG/ML) FOR IV START INTRADERMA ONE (12:02)
[2019-09-08] MEDS ORDERED: MIDAZOLAM 2 MG/2 ML VIAL ONE (12:17)
[2019-09-08] MEDS ORDERED: diphenhydrAMINE 50 MG/ML 1 ML VIAL ONE (12:17)
[2019-09-08] MEDS ORDERED: CHLOROPROCAINE 3% 30 MG/ML 20 ML VIAL ONE (12:17)
[2019-09-08] MEDS ORDERED: PROPOFOL 10 MG/ML 20 ML VIAL IV ONE (12:17)
[2019-09-08] MEDS ORDERED: fentaNYL (PF) 50 MCG/ML 2 ML AMP ONE (12:17)
[2019-09-08] MEDS ORDERED: BUPIVACAINE (PF) 0.25% 30 ML VIAL SQ ONE (12:48)
--- NOTE | 2019-09-08 13:17 | P.OP ---
Date of Procedure: 09/08/19 Preoperative Diagnosis: Internal derangement right knee Postoperative Diagnosis: 1. Tear medial meniscus right knee 2. Grade 3 chondromalacia medial femoral condyle right knee 3. Reactive synovitis medial, lateral and suprapatellar compartments right knee Procedure(s) Performed: 1. Arthroscopic partial medial meniscectomy right knee 2. Arthroscopic chondroplasty medial femoral condyle right knee 3. Arthroscopic partial synovectomy medial, lateral and suprapatellar compartments right knee Anesthesia: JUHIA, local Surgeon: Mulugeta Cole Estimated Blood Loss (ml): 5 Pathology: none sent Condition: stable Disposition: PACU Indications for Procedure: 68-year-old patient seen with progressive right knee pain. After treatment options were discussed, he elected to proceed with arthroscopy. Operative Findings: see description of procedure Description of Procedure: Patient was taken to the operative suite. Patient underwent a general anesthetic by the department of anesthesia. Patient was given preoperative a ntibiotics. The right lower extremity was placed in a well-padded arthroscopic leg gregorio. The right leg was prepped and draped in the normal sterile orthopedic fashion. A lateral parapatellar and suprapatellar incision was made. Trochars were inserted. Arthroscopy was initiated. Suprapatellar pouch revealed diffuse thick reactive synovitis. The patellofemoral joint appeared to articulate congruently. There grade 1/2 chondromalacia of the patellofemoral joint with no osteochondral tears present. The scope was guided into the medial gutter. No loose bodies or plica were identified. The scope was then guided into the medial compartment. A medial parapatellar incision was made. Trocar inserted followed by probe. There was a complex tear involving the posterior horn medial meniscus. There were grade 3 chondral malacia changes of the medial femoral condyle with osteochondral flap tears present as well as thick reactive synovitis anteriorly. I performed a partial medial meniscectomy down to stable tissue. I performed a chondroplasty of the medial femoral condyle down to stable tissue. I performed a partial synovectomy decompressing the reactive synovitis. The residual meniscus was stable. There was good decompression of the synovitis. The residual osteochondral surface was stable. Scope and probe were then guided into the intercondylar notch. Cruciates were identified, probed and found to be stable. The scope and probe were then guided into lateral compartment. There was some superficial fraying of the lateral meniscus midbody area. There was thick reactive synovitis anteriorly. There was mild grade 1 chondromalacia. I debrided that frayed area of meniscus of the motorize shaver. I performed a partial synovectomy decompressing the thick reactive s ynovitis anteriorly. There was good decompression of the synovitis. The scope was in guided back into the suprapatellar compartment. Used a motorized shaver into the superpatellar compartment. I debrided some piecemeal fragments of meniscus I encountered. I performed a partial synovectomy decompressing the reactive synovitis. There was good decompression of the synovitis and superpatellar compartment. Instruments were now removed from the joint. The joint was infiltrated with .25% Marcaine. Steri-Strips were applied to the portal sites. Sterile dressings were applied. The patient was placed into a NOHEMI hose. No tourniquet was utilized. The patient was awakened, transferred to a bed and taken to recovery stable satisfactory condition.
[2019-09-08 13:40] VITALS: TEMP 96.8
[2019-09-08 13:45] LABS: Glucose,Whole Blood 157 mg/dL (75-99)
[2019-09-08 14:33] VITALS: RESP 17
[2019-09-08 15:12] VITALS: BP 166/80; PULSE 69
== END 2019-09-08 15:40 | disposition home or self-care (01) ==
LOC: OR 10:54
PROVIDERS: ATTEND Orthopaedic Surgery
DX: M23.321 Other meniscus derangements, posterior horn of medial meniscus, right knee (principal); M23.361 Other meniscus derangements, other lateral meniscus, right knee; M65.861 Other synovitis and tenosynovitis, right lower leg; M22.41 Chondromalacia patellae, right knee; I10 Essential (primary) hypertension; I25.10 Atherosclerotic heart disease of native coronary artery without angina pectoris; E78.5 Hyperlipidemia, unspecified; J44.9 Chronic obstructive pulmonary disease, unspecified; G47.33 Obstructive sleep apnea (adult) (pediatric); E11.9 Type 2 diabetes mellitus without complications; F32.9 Major depressive disorder, single episode, unspecified; K21.9 Gastro-esophageal reflux disease without esophagitis; Z95.5 Presence of coronary angioplasty implant and graft; Z79.4 Long term (current) use of insulin; Z79.82 Long term (current) use of aspirin; Z79.899 Other long term (current) drug therapy; Z79.51 Long term (current) use of inhaled steroids; Z98.890 Other specified postprocedural states; X58.XXXA Exposure to other specified factors, initial encounter
CPT/HCPCS: 29880; J2400; J2250; J1200; J1100; J0690; J2405; J3010; J2704

== ENCOUNTER 2019-10-17 20:46 | Emergency (ER) | payer OTHER ==
[2019-10-17] MEDS ORDERED: MORPHINE SULFATE 4 MG/ML SYRINGE IVP STA (21:20)
--- NOTE | 2019-10-17 21:22 | ED ---
General Adult HPI - General Chief complaint: Back Pain/Injury Stated complaint: Side Pain Time Seen by Provider: 10/17/19 21:08 Source: patient, RN notes reviewed, old records reviewed Mode of arrival: ambulatory Limitations: no limitations - History of Present Illness Initial comments: 69-year-old male presenting for evaluation of bilateral flank pain. Pain is been present for the past 10 days. He states that it began at rest, no specific injury reported. He does have history of kidney stones states this is somewhat similar to previous kidney stones although not typically bilateral. No vomiting. He is having loose stools which is normal for this patient, unchanged from baseline. No fever or chills. No dysuria or hematuria. No pain radiating into the legs. Pain is constant bilateral flank. No abdominal pain. - Related Data Home Medications Medication Instructions Recorded Confirmed ARIPiprazole [Abilify] 7.5 mg PO HS 11/03/14 09/08/19 Citalopram Hydrobromide 40 mg PO DAILY 11/03/14 09/06/19 [Citalopram HBr] Ascorbic Acid [Vitamin C] 500 mg PO DAILY 01/17/16 09/08/19 Cholecalciferol [Vitamin D3 (25 2,000 unit PO BID 01/17/16 09/08/19 Mcg = 1000 Iu)] [place]-3 Fatty Acids/Fish Oil [Fish 1,000 mg PO DAILY 07/02/16 09/08/19 Oil 1,000 mg Softgel] traZODone HCL 150 mg PO HS 07/02/16 09/08/19 Aspirin EC [Ecotrin Low Dose] 81 mg PO DAILY 11/20/16 09/06/19 Colchicine 0.6 mg PO DAILY 11/20/16 09/08/19 Montelukast [Singulair] 10 mg PO HS 11/20/16 09/08/19 Budesonide/Formoterol Fumarate 2 puff INHALATION RT-BID 02/19/17 09/08/19 [Symbicort 160-4.5 Mcg Inhaler] Metoprolol Tartrate [Lopressor] 25 mg PO BID 02/19/17 09/06/19 Lisinopril [Zestril] 10 mg PO BID 04/29/17 09/08/19 Bisoprolol [Zebeta] 5 mg PO DAILY 08/31/17 09/06/19 Evolocumab [Repatha Syringe] 140 mg SQ Q14D 12/10/18 09/08/19 Magnesium Oxide 400 mg PO BID 12/10/18 09/08/19 INSULIN ASPART (NovoLOG) [NovoLOG 8 unit SQ AC-TID 09/06/19 09/08/19 (formulary)] Insulin Detemir (Levemir) [Levemir] 62 unit SQ BID 09/06/19 09/08/19 Pantoprazole [Protonix] 40 mg PO DAILY 09/06/19 09/08/19 Previous Rx's Medication Instructions Recorded Isosorbide Mononitrate ER [Imdur] 30 mg PO HS #30 tab.er.24h 09/01/17 Amoxic-Pot Clav 875-125Mg 1 each PO Q12HR #14 tab 12/30/18 [Augmentin 875-125] Ferrous Sulfate [Feosol] 325 mg PO BID #60 tablet 12/30/18 INSULIN ASPART (NovoLOG) [NovoLOG 0 unit SQ ACHS vial 12/30/18 (formulary)] traMADol HCl [Ultram] 50 mg PO Q6H PRN #21 tab 09/08/19 Allergies Allergy/AdvReac Type Severity Reaction Status Date / Time No Known Allergies Allergy Verified 10/17/19 20:51 Review of Systems ROS Statement: Those systems with pertinent positive or pertinent negative responses have been documented in the HPI. ROS Other: All systems not noted in ROS Statement are negative. Past Medical History Past Medical History: Atrial Fibrillation, Coronary Artery Disease (CAD), COPD, Diabetes Mellitus, Hyperlipidemia, Hypertension, Sleep Apnea/CPAP/BIPAP Additional Past Medical History / Comment(s): Obstructive sleep apnea and the patient uses a CPAP. HX KIDNEY STONES, GOUT, BIPOLAR DEPRESSION., gall stone, coronary artery disease him a paroxysmal atrial fibrillation, diabetes mellitus, diverticulosis, colonic polyps, depression, attention, hyperlipidemia History of Any Multi-Drug Resistant Organisms: None Reported Past Surgical History: Heart Catheterization With Stent, Hernia Repair, Orthop edic Surgery, Tonsillectomy Additional Past Surgical History / Comment(s): Pilonidal cyst. EXC ABDI CATARACTS. Bilateral Knee Sx. LITHOTRIPSY. COLONOSCOPY. 05-15-16 at [facility] had heart cath w/1 stent, 05-21-16 had 2 more stents - another stent placed 06/26/17, total of 6 stents. LASIK SX Past Anesthesia/Blood Transfusion Reactions: No Reported Reaction Additional Past Anesthesia/Blood Transfusion Reaction / Comment(s): no hx blood transfusion Date of Last Stent Placement:: 06/25/2017 Past Psychological History: Bipolar, Depression Smoking Status: Former smoker - Past Family History Mother Family Medical History: Coronary Artery Disease (CAD) Father Family Medical History: Coronary Artery Disease (CAD) Additional Family Medical History / Comment(s): emphysema General Exam Limitations: no limitations General appearance: alert, in no apparent distress Head exam: Present: atraumatic, normocephalic Eye exam: Present: normal appearance, PERRL ENT exam: Present: normal exam Neck exam: Present: normal inspection. Absent: tenderness, meningismus Respiratory exam: Present: normal lung sounds bilaterally. Absent: respiratory distress, wheezes Cardiovascular Exam: Present: regular rate, normal rhythm GI/Abdominal exam: Present: soft, distended. Absent: tenderness, guarding, rebound Extremities exam: Present: normal inspection, normal capillary refill. Absent: pedal edema, calf tenderness Back exam: Present: CVA tenderness (R), CVA tenderness (L), paraspinal tenderness. Absent: vertebral tenderness Neurological exam: Present: alert, oriented X3, CN II-XII intact. Absent: motor sensory deficit Psychiatric exam: Present: normal affect, normal mood Skin exam: Present: warm, dry, intact. Absent: cyanosis, diaphoretic Course Vital Signs 10/17/19 10/17/19 20:51 22:07 Temperature 97.9 F Pulse Rate 84 79 Respiratory 16 18 Rate Blood Pressure 182/104 169/89 O2 Sat by Pulse 96 98 Oximetry Medical Decision Making - Medical Decision Making 69-year-old male multiple chronic medical conditions presented for evaluation of bilateral low back pain. No specific injury. Patient does report some overuse at the time of reevaluation. He is hypertensive on presentation and workup is initiated going CBC, CMP and CT and pelvis with spinal recon. He has normal CBC with exception of some mild anemia. Normal CMP. CT performed shows bilateral renal calculi no obstructing stones. He has some atherosclerotic calcifications no abdominal aortic aneurysm, overall unremarkable CT regarding the patient's pain complaints. Lumbar spine shows some spinal stenosis no acute fracture dislocation. Urinalysis negative for infection, negative for hemorrhage. Patient reevaluated after 4 morphine, resting comfortably, feeling better. Reassured that this is likely musculoskeletal, will rest, begin stretching and follow-up with primary care physician. - Lab Data Result diagrams: 10/17/19 22:00 10/17/19 22:00 Lab Results 10/17/19 10/17/19 10/17/19 Range/Units 21:20 22:00 22:00 WBC 8.4 (3.8-10.6) k/uL RBC 4.15 L (4.30-5.90) m/uL Hgb 12.5 L (13.0-17.5) gm/dL Hct 36.4 L (39.0-53.0) % MCV 87.7 (80.0-100.0) fL MCH 30.0 (25.0-35.0) pg MCHC 34.2 (31.0-37.0) g/dL RDW 14.0 (11.5-15.5) % Plt Count 332 (150-450) k/uL Neutrophils % 66 % Lymphocytes % 20 % Monocytes % 8 % Eosinophils % 2 % Basophils % 1 % Neutrophils # 5.5 (1.3-7.7) k/uL Lymphocytes # 1.7 (1.0-4.8) k/uL Monocytes # 0.7 (0-1.0) k/uL Eosinophils # 0.2 (0-0.7) k/uL Basophils # 0.1 (0-0.2) k/uL PT (9.0-12.0) sec INR (<1.2) APTT (22.0-30.0) sec Sodium 140 (137-145) mmol/L Potassium 4.1 (3.5-5.1) mmol/L Chloride 106 (98-107) mmol/L Carbon Dioxide 27 (22-30) mmol/L Anion Gap 7 mmol/L BUN 20 (9-20) mg/dL Creatinine 1.09 (0.66-1.25) mg/dL Est GFR (CKD-EPI)AfAm 80 (>60 ml/min/1.73 sqM) Est GFR (CKD-EPI)NonAf 69 (>60 ml/min/1.73 sqM) Glucose 97 (74-99) mg/dL POC Glucose (mg/dL) (75-99) mg/dL POC Glu Trommel Tender ID Plasma Lactic Acid Donnell (0.7-2.0) mmol/L Calcium 9.7 (8.4-10.2) mg/dL Total Bilirubin 0.3 (0.2-1.3) mg/dL AST 48 (17-59) U/L ALT 48 (4-49) U/L Alkaline Phosphatase 88 (38-126) U/L Total Protein 7.0 (6.3-8.2) g/dL Albumin 4.2 (3.5-5.0) g/dL Urine Color Light Yellow Urine Appearance Clear (Clear) Urine pH 6.0 (5.0-8.0) Ur Specific [place] 1.012 (1.001-1.035) Urine Protein 1+ H (Negative) Urine Glucose (UA) Negative (Negative) Urine Ketones Negative (Negative) Urine Blood Trace H (Negative) Urine Nitrite Negative (Negative) Urine Bilirubin Negative (Negative) Urine Urobilinogen <2.0 (<2.0) mg/dL Ur Leukocyte Esterase Negative (Negative) Urine RBC 1 (0-5) /hpf 10/17/19 10/17/19 10/17/19 Range/Units 22:00 22:00 23:20 WBC (3.8-10.6) k/uL RBC (4.30-5.90) m/uL Hgb (13.0-17.5) gm/dL Hct (39.0-53.0) % MCV (80.0-100.0) fL MCH (25.0-35.0) pg MCHC (31.0-37.0) g/dL RDW (11.5-15.5) % Plt Count (150-450) k/uL Neutrophils % % Lymphocytes % % Monocytes % % Eosinophils % % Basophils % % Neutrophils # (1.3-7.7) k/uL Lymphocytes # (1.0-4.8) k/uL Monocytes # (0-1.0) k/uL Eosinophils # (0-0.7) k/uL Basophils # (0-0.2) k/uL PT 9.8 (9.0-12.0) sec INR 0.9 (<1.2) APTT 26.4 (22.0-30.0) sec Sodium (137-145) mmol/L Potassium (3.5-5.1) mmol/L Chloride (98-107) mmol/L Carbon Dioxide (22-30) mmol/L Anion Gap mmol/L BUN (9-20) mg/dL Creatinine (0.66-1.25) mg/dL Est GFR (CKD-EPI)AfAm (>60 ml/min/1.73 sqM) Est GFR (CKD-EPI)NonAf (>60 ml/min/1.73 sqM) Glucose (74-99) mg/dL POC Glucose (mg/dL) 87 (75-99) mg/dL POC Glu Trommel Tender ID Jaelyn Alvarez Plasma Lactic Acid Donnell 1.3 (0.7-2.0) mmol/L Calcium (8.4-10.2) mg/dL Total Bilirubin (0.2-1.3) mg/dL AST (17-59) U/L ALT (4-49) U/L Alkaline Phosphatase (38-126) U/L Total Protein (6.3-8.2) g/dL Albumin (3.5-5.0) g/dL Urine Color Urine Appearance (Clear) Urine pH (5.0-8.0) Ur Specific [place] (1.001-1.035) Urine Protein (Negative) Urine Glucose (UA) (Negative) Urine Ketones (Negative) Urine Blood (Negative) Urine Nitrite (Negative) Urine Bilirubin (Negative) Urine Urobilinogen (<2.0) mg/dL Ur Leukocyte Esterase (Negative) Urine RBC (0-5) /hpf Disposition Clinical Impression: Mechanical back pain, Strain of lumbar region Disposition: HOME SELF-CARE Condition: Good Instructions (If sedation given, give patient instructions): Acute Low Back Pain (ED) Is patient prescribed a controlled substance at d/c from ED?: No Referrals: [facility],Clinic [Primary Care Provider] - 1-2 days Time of Disposition: 23:40
[2019-10-17 21:49] LABS: Appearance,Urine Clear (Clear); Bilirubin,Urine Negative (Negative); Blood,Urine Trace (Negative); Color,Urine Light Yellow; Glucose,Urine (UA) Negative (Negative); Ketones,Urine Negative (Negative); Leukocyte Esterase,Urine Negative (Negative); Nitrite,Urine Negative (Negative); Protein,Urine 1+ (Negative); RBC,Urine 1 /hpf (0-5); Specific Gravity,Urine 1.012 (1.001-1.035); Urobilinogen,Urine <2.0 mg/dL (<2.0)
[2019-10-17 22:15] LABS: Basophils # (A) 0.1 k/uL (0-0.2); Basophils % (A) 1 %; Eosinophils # (A) 0.2 k/uL (0-0.7); Eosinophils % (A) 2 %; HCT 36.4 % (39.0-53.0); HGB 12.5 gm/dL (13.0-17.5); Lymphocytes # (A) 1.7 k/uL (1.0-4.8); Lymphocytes % (A) 20 %; MCHC 34.2 g/dL (31.0-37.0); MCV 87.7 fL (80.0-100.0); Mean Platelet Volume 6.9; Monocytes # (A) 0.7 k/uL (0-1.0); Monocytes % (A) 8 %; Neutrophils # (A) 5.5 k/uL (1.3-7.7); Neutrophils % (A) 66 %; Platelet Count 332 k/uL (150-450); RBC 4.15 m/uL (4.30-5.90); WBC 8.4 k/uL (3.8-10.6)
[2019-10-17 22:26] LABS: Albumin 4.2 g/dL (3.5-5.0); Calcium 9.7 mg/dL (8.4-10.2); Potassium 4.1 mmol/L (3.5-5.1); Total Bilirubin 0.3 mg/dL (0.2-1.3)
[2019-10-17 22:31] LABS: INR 0.9 (<1.2); Partial Thromboplastin Time 26.4 sec (22.0-30.0); Prothrombin Time 9.8 sec (9.0-12.0)
--- NOTE | 2019-10-17 23:22 | CT ---
EXAMINATION TYPE: CT abdomen pelvis w con DATE OF EXAM: 10/17/2019 COMPARISON: 12/26/2018 HISTORY: Bilateral Flank pain, back pain CT DLP: 3743.40 mGycm Automated exposure control for dose reduction was used. CONTRAST: Performed with IV Contrast, patient injected with 100 mL of Isovue 300. Lung bases are clear of consolidation. There is no pleural effusion. Heart size is normal. Liver appears intact. Gallbladder appears normal. There are small vascular calcifications in the hepa tic artery. Spleen appears normal. Stomach appears normal. There is no pancreatic mass. There is 4 mm gallstone. There is no adrenal mass. Kidneys have normal size and contour. There is 3 mm calculus lower pole lef t kidney. There is 1 mm calculus lateral right kidney. There is 1 mm calculus posterior right kidney. There is 3 mm calculus lower pole right kidney. There is no retroperitoneal adenopathy. Ureters are not dilated. Delayed images show no sign of renal obstruction. There is intact urinary bladder. There is no inguinal hernia. There is no free fluid in the pelvis. There is no mesenteric edema. There is no ascites or free air. There is no evidence of a bowel obstru ction. Appendix not seen. No sign of thickened appendix. There is subcutaneous edema over the anterior lower abdomen. There is subcutaneous edema over the low er lumbar spine. There are multiple proximal sigmoid diverticula. There is no sign of diverticulitis. Lumbar vertebra have normal alignment. There is no compression fracture. Bony pelvis is intact. IMPRESSION: Multiple bilateral nonobstructing renal calculi. Mild atherosclerotic vascular disease. Colonic diverticulosis. No sign of diverticulitis. Subcutaneous edema over the anterior lower abdomen unchanged. Renal calculi unchanged.
[2019-10-17 23:23] LABS: Glucose,Whole Blood 87 mg/dL (75-99)
--- NOTE | 2019-10-17 23:25 | CT ---
EXAMINATION TYPE: CT lumbar spine w con DATE OF EXAM: 10/17/2019 COMPARISON: None HISTORY: Back pain CT DLP: mGycm Automated exposure control for dose reduction was used. CONTRAST: Performed with IV Contrast, patient injected with mL of Isovue 300. Lumbar vertebra have normal alignment. There is no compression fracture. There is mild spurring of th e endplates. Posterior elements are intact. Facet joints are intact. There is no lumbar paraspinal ma ss. There is a mild relative spinal stenosis at L5-S1. There is posterior disc bulging and facet arth ropathy at L5-S1. Abdominal aorta is atheromatous. The sacroiliac joints appear intact. IMPRESSION: Mild spondylotic changes. Mild spinal stenosis at L5-S1. No fracture seen.
[2019-10-17 23:47] VITALS: BP 169/87; PULSE 87; RESP 16; TEMP 98
== END 2019-10-17 23:47 | disposition home or self-care (01) ==
LOC: EC 20:46
DX: S39.012A Strain of muscle, fascia and tendon of lower back, initial encounter (principal); M48.061 Spinal stenosis, lumbar region without neurogenic claudication; N20.0 Calculus of kidney; D64.9 Anemia, unspecified; I70.90 Unspecified atherosclerosis; I10 Essential (primary) hypertension; F41.9 Anxiety disorder, unspecified; I25.10 Atherosclerotic heart disease of native coronary artery without angina pectoris; E11.9 Type 2 diabetes mellitus without complications; E78.5 Hyperlipidemia, unspecified; G47.33 Obstructive sleep apnea (adult) (pediatric); M10.9 Gout, unspecified; I48.0 Paroxysmal atrial fibrillation; Z79.4 Long term (current) use of insulin; Z79.82 Long term (current) use of aspirin; Z79.899 Other long term (current) drug therapy; Z99.89 Dependence on other enabling machines and devices; Z87.19 Personal history of other diseases of the digestive system; Z87.891 Personal history of nicotine dependence; Z95.5 Presence of coronary angioplasty implant and graft; Z98.890 Other specified postprocedural states; X58.XXXA Exposure to other specified factors, initial encounter
CPT/HCPCS: 36415; 80053; 83605; 85025; 85610; 85730; 81001; 72132; 74177; 96374; 99284; J2270; Q9967

== ENCOUNTER → 2021-04-25 | Outpatient (CLI) | payer OTHER, MEDICARE ==
--- NOTE | 2021-04-25 15:09 | US ---
EXAMINATION TYPE: US scrotum with doppler. Grayscale and color Doppler Duplex imaging performed of yissel yoder scrotum. DATE OF EXAM: 04/25/2021 COMPARISON: NONE CLINICAL HISTORY: N50.819 Testicular pain. Pt states left testicle pain that has no subsided EXAM MEASUREMENTS: TESTICLES: Right Testicle: 3.8 x 1.7 x 3.4 cm Left Testicle: 4.0 x 2.2 x 3.1 cm EPIDIDYMIS HEAD: Right Epididymis: 1.1 cm Left Epididymis: 1.1 cm Doppler performed to assess for testicular vascularity; good bilateral color flow and waveforms are s een. There is no evidence of testicular torsion. Presence of hydroceles: Small amount of fluid inferior left testicle Presence of varicoceles: No Rete testes left upper testicle IMPRESSION: Small left hydrocele.
== END | disposition home or self-care (01) ==
LOC: RADUSWWP 14:06
DX: N43.3 Hydrocele, unspecified (principal)
CPT/HCPCS: 76870; 93975

== ENCOUNTER → 2022-02-21 | Outpatient (CLI) | payer OTHER ==
--- NOTE | 2022-02-21 10:44 | CTL ---
EXAMINATION TYPE: CT Low Dose Lung DATE OF EXAM ORDERED: 02/21/2022 HISTORY: Personal history of tobacco use. Lung cancer screening CT DLP: 144.[address] CTDI: 4.0 mGy Automated exposure control for dose reduction was used. SCREENING VISIT: 1 COMPARISON: CT chest 09/22/2016 TECHNIQUE: Low dose computed tomography scan was performed through the chest at 1 mm thick sections a nd reconstructed images in multiple planes at 1 mm and [address] DIAGNOSTIC QUALITY: Satisfactory FINDINGS: LUNG NODULES: Present, detailed below: Left lower lobe axial image 212 shows a 2 to 3 mm subpleural nodule LUNGS: COPD: Severity: None Fibrosis: Severity: Mild Lymph nodes: None Other findings: None RIGHT PLEURAL SPACE: Effusion: None Calcification: None Thickening: None Pneumothorax: None LEFT PLEURAL SPACE: Effusion: None Calcification: None Thickening: None Pneumothorax: None HEART: Heart Size: Normal Coronary Calcification: Severe Pericardial Effusion: Small OTHER FINDINGS: Upper abdomen: None Bony thorax: None Supraclavicular region: None Other: None IMPRESSION: Benign CT LUNG RAD AND CT CHEST RECOMMENDATION: 2S S Modifier (other clinically significant findings): Significant coronary artery disease
== END | disposition home or self-care (01) ==
LOC: RADCTMAIN 09:07
DX: Z12.2 Encounter for screening for malignant neoplasm of respiratory organs (principal); I25.10 Atherosclerotic heart disease of native coronary artery without angina pectoris; Z87.891 Personal history of nicotine dependence
CPT/HCPCS: 71271

== ENCOUNTER → 2022-11-05 | Outpatient (CLI) | payer OTHER ==
[2022-11-05 17:25] LABS: Chol/HDL Ratio 4.18 Ratio; LDL Cholesterol,Calculated 72.6 mg/dL (0.0-131.0)
[2022-11-05 18:33] LABS: ALT 44 U/L (10-49); AST 36 U/L (14-35); African American GFR (CKD) 60.9 (60.0-200.0); Albumin 4.3 g/dL (3.8-4.9); Albumin/Globulin Ratio 1.79 (1.60-3.17); Alkaline Phosphatase 84 U/L (41-126); BUN/Creat Ratio 18.21 Ratio (12.00-20.00); Blood Urea Nitrogen 24.4 mg/dL (9.0-27.0); Calcium 9.6 mg/dL (8.7-10.3); Carbon Dioxide 23.6 mmol/L (20.0-27.5); Chloride 102 mmol/L (96-109); Globulin 2.4 g/dL (1.6-3.3); Glucose 120 mg/dL (70-110); Non-African American GFR(CKD) 52.6 (60.0-200.0); Potassium 4.2 mmol/L (3.5-5.5); Sodium 140 mmol/L (135-145); Total Bilirubin <0.15 mg/dL (0.30-1.20); Total Protein 6.7 g/dL (6.2-8.2)
== END | disposition home or self-care (01) ==
LOC: LABWHC1 09:59
PROVIDERS: ATTEND Internal Medicine Interventional Cardiology
DX: E78.2 Mixed hyperlipidemia (principal)
CPT/HCPCS: 36415; 80053; 80061

== ENCOUNTER → 2023-04-09 | Outpatient (CLI) | payer OTHER ==
--- NOTE | 2023-04-09 18:29 | CTL ---
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 COMPARISON: None. TECHNIQUE: Multiple axial non-contrast scans were obtained from approximately the lung apices through the upper abdomen. Coronal and sagittal reformatted images were obtained. Low dose technique was uti lized. CT DLP: 99.4 mGycm, Automated exposure control for dose reduction was used. CT Contrast: Contrast used: None Oral contrast used: None FINDINGS: ======== Lack of intravenous contrast and low dose technique limits the evaluation of the vascular and soft ti ssue structures. LUNGS: No evidence of pulmonary fibrosis. No evidence of focal consolidation, pneumothorax or pleural effusion. Centrilobular emphysema changes are seen throughout the lungs. Trachea atelectasis within the lingula. Nodules: RUL: None. RML:2 mm calcified granuloma series 3 image 201. RLL: None. RIGOBERTO: None. LLL: Intrafissural lymph node versus adjacent cyst nodule measuring 4 mm series 3 image 145. AIRWAY: Patent and unremarkable. HEART: Size within normal limits. Severe coronary artery atherosclerosis. MEDIASTINUM: No gross evide nce of adenopathy. VASCULATURE: Atherosclerotic calcifications are present throughout the aorta and its branches. MUSCULOSKELETAL: Moderate disc degeneration changes are present throughout the thoracolumbar spine. SOFT TISSUES/LYMPH NODES: Unremarkable. LOWER NECK: No significant findings. UPPER ABDOMEN: No significant findings. IMPRESSION: 1. No clinically significant pulmonary nodules. 2. Mild emphysema. 3. Severe coronary artery atherosclerosis. CT LUNG RAD AND CT CHEST RECOMMENDATION: Lung-Rad 2 Benign Appearance or Behavior: Continue annual sc reening with LDCT in 12 months. S Modifier (other clinically significant findings): None Recommend smoking cessation (if current smoker), or continuation of smoking cessation (if prior smoke r). Annual screening for lung cancer with low-dose computed tomography is recommended in adults ages 55 to 77 years who have a 30 pack-year smoking history and currently smoke or have quit within the pa st 15 years. Screening should be discontinued once a person has not smoked for 15 years or develops a health problem that substantially limits life expectancy or the ability or willingness to have curat luigi lung surgery. Lung rads 2021 [email or web address]
== END | disposition home or self-care (01) ==
LOC: RADCTMAIN 17:24
DX: Z12.2 Encounter for screening for malignant neoplasm of respiratory organs (principal); I25.10 Atherosclerotic heart disease of native coronary artery without angina pectoris; J43.2 Centrilobular emphysema; Z87.891 Personal history of nicotine dependence
CPT/HCPCS: 71271

== ENCOUNTER 2023-05-07 17:18 | Emergency (ER) | payer OTHER ==
[2023-05-07 17:30] VITALS: RESP 20
--- NOTE | 2023-05-07 17:33 | ED ---
General Adult HPI <Ivy Purcell - Last Filed: 05/07/23 17:29> - General Source: patient, RN notes reviewed Limitations: no limitations <Antonio Figueroa - Last Filed: 05/07/23 19:59> - General Stated complaint: Groin Pain - History of Present Illness Initial comments: 72 year old male presents to the emergency department for pain in his left sided groin pain that goes to the left testicle x3 days. He reports urinary frequency without dysuria or blood. Patient has a history of enlarged prostate for which he takes medication. (Ivy Purcell) Patient is a pleasant 72-year-old male presenting to the emergency Department with left testicle pain. Onset of symptoms was 2 days ago. Patient thinks he may have had similar symptoms previously associated prostate problems. Patient states he does frequently urinate however believes he is getting out normal urine. No redness. No swelling. No trauma. (Antonio Figueroa) - Related Data Home Medications Medication Instructions Recorded Confirmed ARIPiprazole [Abilify] 7.5 mg PO HS 11/03/14 09/08/19 Citalopram Hydrobromide 40 mg PO DAILY 11/03/14 09/06/19 [Citalopram HBr] Ascorbic Acid [Vitamin C] 500 mg PO DAILY 01/17/16 09/08/19 Cholecalciferol [Vitamin D3 (25 2,000 unit PO BID 01/17/16 09/08/19 Mcg = 1000 Iu)] [place]-3 Fatty Acids/Fish Oil [Fish 1,000 mg PO DAILY 07/02/16 09/08/19 Oil 1,000 mg Softgel] traZODone HCL 150 mg PO HS 07/02/16 09/08/19 Aspirin EC [Ecotrin Low Dose] 81 mg PO DAILY 11/20/16 09/06/19 Colchicine 0.6 mg PO DAILY 11/20/16 09/08/19 Montelukast [Singulair] 10 mg PO HS 11/20/16 09/08/19 Budesonide/Formoterol Fumarate 2 puff INHALATION RT-BID 02/19/17 09/08/19 [Symbicort 160-4.5 Mcg Inhaler] Metoprolol Tartrate [Lopressor] 25 mg PO BID 02/19/17 09/06/19 lisinopriL [Zestril] 10 mg PO BID 04/29/17 09/08/19 Bisoprolol [Zebeta] 5 mg PO DAILY 08/31/17 09/06/19 Evolocumab [Repatha Syringe] 140 mg SQ Q14D 12/10/18 09/08/19 Magnesium Oxide 400 mg PO BID 12/10/18 09/08/19 INSULIN ASPART (NovoLOG) [NovoLOG 8 unit SQ AC-TID 09/06/19 09/08/19 (formulary)] Insulin Detemir (Levemir) [Levemir] 62 unit SQ BID 09/06/19 09/08/19 Pantoprazole [Protonix] 40 mg PO DAILY 09/06/19 09/08/19 Previous Rx's Medication Instructions Recorded Isosorbide Mononitrate ER [Imdur] 30 mg PO HS #30 tab.er.24h 09/01/17 Amoxic-Pot Clav 875-125Mg 1 each PO Q12HR #14 tab 12/30/18 [Augmentin 875-125] Ferrous Sulfate [Feosol] 325 mg PO BID #60 tablet 12/30/18 INSULIN ASPART (NovoLOG) [NovoLOG 0 unit SQ ACHS vial 12/30/18 (formulary)] traMADol HCl [Ultram] 50 mg PO Q6H PRN #21 tab 09/08/19 Ibuprofen [Motrin] 600 mg PO Q6HR PRN #20 tab 05/07/23 Allergies Allergy/AdvReac Type Severity Reaction Status Date / Time No Known Allergies Allergy Verified 05/07/23 17:30 Review of Systems ROS Other: All systems not noted in ROS Statement are negative. <Ivy Purcell - Last Filed: 05/07/23 17:29> ROS Other: All systems not noted in ROS Statement are negative. Constitutional: Denies: fever Eyes: Denies: eye pain ENT: Denies: ear pain Respiratory: Denies: cough Cardiovascular: Denies: chest pain Endocrine: Denies: fatigue Gastrointestinal: Denies: abdominal pain, nausea, vomiting Genitourinary: Reports: as per HPI, testicular pain. Denies: testicular mass Musculoskeletal: Denies: back pain Skin: Denies: rash Neurological: Denies: weakness <Antonio Figueroa - Last Filed: 05/07/23 19:59> ROS Statement: Those systems with pertinent positive or pertinent negative responses have been documented in the HPI. Past Medical History Past Medical History: Atrial Fibrillation, Coronary Artery Disease (CAD), COPD, Diabetes Mellitus, Hyperlipidemia, Hypertension, Sleep Apnea/CPAP/BIPAP Additional Past Medical History / Comment(s): Obstructive sleep apnea and the patient uses a CPAP. HX KIDNEY STONES, GOUT, BIPOLAR DEPRESSION., gall stone, coronary artery disease him a paroxysmal atrial fibrillation, diabetes mellitus, diverticulosis, colonic polyps, depression, attention, hyperlipidemia History of Any Multi-Drug Resistant Organisms: None Reported Past Surgical History: Heart Catheterization With Stent, Hernia Repair, Orthopedic Surgery, Tonsillectomy Additional Past Surgical History / Comment(s): Pilonidal cyst. EXC ABDI CATARACTS. Bilateral Knee Sx. LITHOTRIPSY. COLONOSCOPY. 05-15-16 at [facility] had heart cath w/1 stent, 05-21-16 had 2 more stents - another stent placed 06/26/17, total of 6 stents. LASIK SX Past Anesthesia/Blood Transfusion Reactions: No Reported Reaction Additional Past Anesthesia/Blood Transfusion Reaction / Comment(s): no hx blood transfusion Date of Last Stent Placement:: 06/25/2017 Past Psychological History: Bipolar, Depression - Past Family History Mother Family Medical History: Coronary Artery Disease (CAD) Father Family Medical History: Coronary Artery Disease (CAD) Additional Family Medical History / Comment(s): emphysema <Ivy Purcell - Last Filed: 05/07/23 17:29> General Exam Limitations: no limitations General appearance: alert, in no apparent distress Head exam: Present: normocephalic Eye exam: Present: normal appearance Neck exam: Present: normal inspection Respiratory exam: Present: normal lung sounds bilaterally Cardiovascular Exam: Present: regular rate, normal rhythm GI/Abdominal exam: Present: soft. Absent: tenderness exam: Present: testicular tenderness (Left-sided). Absent: scrotal swelling Extremities exam: Present: normal inspection Neurological exam: Present: alert Psychiatric exam: Present: normal affect, normal mood Skin exam: Present: normal color <Antonio Figueroa - Last Filed: 05/07/23 19:59> Course Vital Signs 05/07/23 17:27 Temperature 98.2 F Pulse Rate 84 Respiratory 20 Rate Blood Pressure 132/66 O2 Sat by Pulse 94 L Oximetry Medical Decision Making <Antonio Figueroa - Last Filed: 05/07/23 19:59> - Medical Decision Making Was pt. sent in by a medical professional or institution ([facility], [employer], urgent care, hospital, or custodial...) When possible be specific @ -No Did you speak to anyone other than the patient for history (EMS, parent, family, police, friend...)? What history was obtained from this source @ - is present and helps provide history. Following update she adds patient has history of similar symptoms with previous hydrocele Did you review nursing and triage notes (agree or disagree)? Why? @ -I reviewed and agree with nursing and triage notes Were old charts reviewed (outside hosp., previous admission, EMS record, old EKG, old radiological studies, urgent care reports/EKG's, custodial records)? Report findings @ -No old charts were reviewed Differential Diagnosis (chest pain, altered mental status, abdominal pain women, abdominal pain men, vaginal bleeding, weakness, fever, dyspnea, syncope, headache, dizziness, GI bleed, back pain, seizure, CVA, palpatations, mental health, musculoskeletal)? @ -Differential Abdominal Pain Men: Appendicitis, cholecystitis, diverticulosis, ischemic bowel, pancreatitis, hepatitis, UTI, gastroenteritis, AAA, incarcerated hernia, bowel obstruction, constipation, inflammatory bowel, hepatitis, peptic ulcer disease, splenic infarction, perforated viscus, testicular torsion, this is not meant to be an all-inclusive list EKG interpreted by me (3pts min.). @ -As above X-rays interpreted by me (1pt min.). @ -None done CT interpreted by me (1pt min.). @ -None done U/S interpreted by me (1pt. min.). @ -Port reviewed. What testing was considered but not performed or refused? (CT, X-rays, U/S, labs)? Why? @ -None What meds were considered but not given or refused? Why? @ -None Did you discuss the management of the patient with other professionals (professionals i.e. [facility]u, [employer] PATCHER, lab, RT, psych nurse, long term care social worker, marketing strategy analyst, teacher, marketing and communications officer, piano case and bench assembler)? Give summary @ -No Was smoking cessation discussed for >3mins.? @ -No Was critical care preformed (if so, how long)? @ -No Were there social determinants of health that impacted care today? How? (Homelessness, low income, unemployed, alcoholism, drug addiction, transportation, low edu. Level, literacy, decrease access to med. care, [facility], rehab)? @ -No Was there de-escalation of care discussed even if they declined (Discuss DNR or withdrawal of care, Hospice)? DNR status @ -No What co-morbidities impacted this encounter? (DM, HTN, Smoking, COPD, CAD, Cancer, CVA, ARF, Chemo, Hep., AIDS, mental health diagnosis, sleep apnea, morbid obesity)? @ -None Was patient admitted / discharged? Hospital course, mention meds given and route, prescriptions, significant lab abnormalities, going to OR and other pertinent info. @ -Patient does have 200 mL postvoid bladder scan. Discussion had with patient and family and patient would like to avoid Sage catheter at this time. He does have a urologist and agrees to close follow-up. Undiagnosed new problem with uncertain prognosis? @ -No Drug Therapy requiring intensive monitoring for toxicity (Heparin, Nitro, Insulin, Cardizem)? @ -No Were any procedures done? @ -No Diagnosis/symptom? @ -Hydrocele Acute, or Chronic, or Acute on Chronic? @ -Acute Uncomplicated (without systemic symptoms) or Complicated (systemic symptoms)? @ -default Side effects of treatment? @ -No Exacerbation, Progression, or Severe Exacerbation? @ -No Poses a threat to life or bodily function? How? (Chest pain, [place], [place], pneumonia, PE, COPD, DKA, ARF, appy, cholecystitis, CVA, Diverticulitis, Homicidal, Suicidal, threat to staff... and all critical care pts) @ -No (Antonio Figueroa) - Lab Data Lab Results 05/07/23 Range/Units 18:46 Urine Color Colorless Urine Appearance Clear (Clear) Urine pH 6.5 (5.0-8.0) Ur Specific [place] 1.005 (1.001-1.035) Urine Protein Trace H (Negative) Urine Glucose (UA) Negative (Negative) Urine Ketones Negative (Negative) Urine Blood Negative (Negative) Urine Nitrite Negative (Negative) Urine Bilirubin Negative (Negative) Urine Urobilinogen <2.0 (<2.0) mg/dL Ur Leukocyte Esterase Negative (Negative) Disposition <Ivy Purcell - Last Filed: 05/07/23 17:29> Is patient prescribed a controlled substance at d/c from ED?: No Time of Disposition: 19:59 <Antonio Figueroa - Last Filed: 05/07/23 19:59> Clinical Impression: Hydrocele Disposition: HOME SELF-CARE Condition: Stable Instructions (If sedation given, give patient instructions): Hydrocele (ED), Urinary Retention in Men (ED) Additional Instructions: Please do follow-up with your urologist and primary care physician in the next couple days for recheck. Return for increased pain, swelling, unable to urinate, worsening symptoms or any other concerns. Prescription has been sent to pharmacy. Prescriptions: Ibuprofen [Motrin] 600 mg PO Q6HR PRN #20 tab PRN Reason: Pain Referrals: [facility],Clinic [Primary Care Provider] - 1-2 days Mendel Kent MD [STAFF PHYSICIAN] - 1-2 days
[2023-05-07 19:04] LABS: Appearance,Urine Clear (Clear); Bilirubin,Urine Negative (Negative); Blood,Urine Negative (Negative); Color,Urine Colorless; Glucose,Urine (UA) Negative (Negative); Ketones,Urine Negative (Negative); Leukocyte Esterase,Urine Negative (Negative); Nitrite,Urine Negative (Negative); PH, Urine 6.5 (5.0-8.0); Protein,Urine Trace (Negative); Specific Gravity,Urine 1.005 (1.001-1.035); Urobilinogen,Urine <2.0 mg/dL (<2.0)
--- NOTE | 2023-05-07 19:46 | US ---
EXAMINATION TYPE: US scrotum with doppler. Grayscale and color Doppler Duplex imaging performed of yissel yoder scrotum. DATE OF EXAM: 05/07/2023 COMPARISON: 04/25/21 CLINICAL INDICATION: Male, 72 years old with history of L pain; L testicle pain x 1 day EXAM MEASUREMENTS: TESTICLES: Right Testicle: 4.9 x 3.0 x 2.7 cm Left Testicle: 4.4 x 3.0 x 1.7 cm. Incidentally noted left rete testes. EPIDIDYMIS HEAD: Right Epididymis: 0.9 cm Left Epididymis: 0.9 cm Doppler performed to assess for testicular vascularity; good bilateral color flow and waveforms are s een. There is no evidence of testicular torsion. Presence of hydroceles: Small left side Presence of varicoceles: No IMPRESSION: 1. No evidence for testicular torsion. 2. Trace left hydrocele.
[2023-05-07] MEDS ORDERED: IBUPROFEN 600 MG TAB PO STA (19:55)
[2023-05-07 20:11] VITALS: BP 128/62; PULSE 72; TEMP 98.1
== END 2023-05-07 20:11 | disposition home or self-care (01) ==
LOC: EC 17:18
DX: N43.3 Hydrocele, unspecified (principal); I48.0 Paroxysmal atrial fibrillation; I25.10 Atherosclerotic heart disease of native coronary artery without angina pectoris; I10 Essential (primary) hypertension; E78.5 Hyperlipidemia, unspecified; J44.9 Chronic obstructive pulmonary disease, unspecified; E11.9 Type 2 diabetes mellitus without complications; F31.9 Bipolar disorder, unspecified; Z79.82 Long term (current) use of aspirin; Z79.4 Long term (current) use of insulin; Z79.899 Other long term (current) drug therapy
CPT/HCPCS: 76870; 81003; 93975; 99284

== ENCOUNTER 2023-05-18 12:26 | Emergency (ER) | payer OTHER ==
[2023-05-18] MEDS ORDERED: SODIUM CHLORIDE 0.9% 1,000 ML IV ONE (12:49)
[2023-05-18] MEDS ORDERED: KETOROLAC 15 MG/ML 1 ML VIAL IVP STA (12:50)
[2023-05-18 13:31] LABS: Appearance,Urine Clear (Clear); Basophils % (A) 0 %; Bilirubin,Urine Negative (Negative); Blood,Urine Negative (Negative); Color,Urine Light Yellow; Eosinophils # (A) 0.3 k/uL (0-0.7); Eosinophils % (A) 4 %; Glucose,Urine (UA) Negative (Negative); HCT 31.3 % (39.0-53.0); HGB 10.5 gm/dL (13.0-17.5); Ketones,Urine Negative (Negative); Leukocyte Esterase,Urine Negative (Negative); Lymphocytes # (A) 1.1 k/uL (1.0-4.8); Lymphocytes % (A) 14 %; MCH 30.3 pg (25.0-35.0); MCHC 33.6 g/dL (31.0-37.0); MCV 90.2 fL (80.0-100.0); Monocytes # (A) 0.6 k/uL (0-1.0); Monocytes % (A) 8 %; Mucus,Urine Rare /hpf; Neutrophils # (A) 5.4 k/uL (1.3-7.7); Neutrophils % (A) 72 %; Nitrite,Urine Negative (Negative); PH, Urine 5.5 (5.0-8.0); Platelet Count 227 k/uL (150-450); Protein,Urine 1+ (Negative); RBC 3.48 m/uL (4.30-5.90); RDW 13.9 % (11.5-15.5); Specific Gravity,Urine 1.011 (1.001-1.035); Urobilinogen,Urine <2.0 mg/dL (<2.0); WBC 7.6 k/uL (3.8-10.6); WBC,Urine 2 /hpf (0-5)
--- NOTE | 2023-05-18 13:40 | CT ---
EXAMINATION TYPE: CT abdomen pelvis wo con DATE OF EXAM: 05/18/2023 COMPARISON: 10/17/2019. HISTORY: Left flank pain CT DLP: 1400 mGycm Examination of the solid and hollow viscera is limited given the lack of contrast. FINDINGS: LUNG BASES: No evidence for nodule. No evidence for infiltrate. Small pericardial effusion noted. LIVER/GB: Small gallstone is noted. No space-occupying hepatic lesion. PANCREAS: No pancreatic mass identified. No inflammatory process seen. SPLEEN: No evidence for splenomegaly. No intrasplenic lesions seen. ADRENALS: No adrenal nodules identified. No evidence for thickening. KIDNEYS: No evidence for renal mass. Renal vascular calcifications are noted. Nonobstructing nephroli thiasis lower pole left kidney and lower pole right kidney measuring up to 3 mm. No hydronephrosis. BOWEL: Appendix has a normal appearance. No evidence of bowel obstruction. Mild inflammatory change s igmoid colon with diverticulosis compatible with mild diverticulitis without evidence for abscess or perforation. Lymph nodes: No evidence for adenopathy greater than 1 cm. Abdominal aorta: Atheromatous changes seen. No evidence for aneurysm. Genital organs: No significant abnormality. Other: No significant abnormality. IMPRESSION: 1. Mild uncomplicated sigmoid diverticulitis. 2. Uncomplicated cholelithiasis. 3. Nonobstructing nephrolithiasis and renal vascular calcifications.
[2023-05-18 13:45] LABS: ALT 31 U/L (4-49); African American GFR (CKD) 68 (>60 ml/min/1.73 sqM); Anion Gap 10 mmol/L; Blood Urea Nitrogen 24 mg/dL (9-20); Calcium 8.8 mg/dL (8.4-10.2); Carbon Dioxide 21 mmol/L (22-30); Chloride 107 mmol/L (98-107); Glucose 151 mg/dL (74-99); Non-African American GFR(CKD) 59 (>60 ml/min/1.73 sqM); Sodium 138 mmol/L (137-145); Total Bilirubin 0.6 mg/dL (0.2-1.3)
[2023-05-18 13:52] LABS: AST 35 U/L (17-59); Albumin 3.9 g/dL (3.5-5.0); Alkaline Phosphatase 60 U/L (38-126); Potassium 4.6 mmol/L (3.5-5.1); Total Protein 6.9 g/dL (6.3-8.2)
--- NOTE | 2023-05-18 14:41 | ED ---
General Adult HPI - General Chief complaint: Urogenital Stated complaint: groin pain Time Seen by Provider: 05/18/23 12:42 Source: patient, RN notes reviewed Mode of arrival: ambulatory - History of Present Illness Initial comments: 72-year-old male with no significant past medical history presents the emergency department with a chief complaint ankle pain. Patient reports left lower quadrant abdominal pain, flank pain, pain that radiates into the left testicle that is intermittent over the last 3 weeks. He was seen and evaluated where he had a testicular ultrasound that was unremarkable. He reports some associated symptoms however 2 days ago was washing his car and reports worsening pain. He denies any fever, chills, nausea, vomiting, abdomin al pain, dysuria, hematuria. His symptoms. He denies any new injury or trauma. - Related Data Home Medications Medication Instructions Recorded Confirmed ARIPiprazole [Abilify] 7.5 mg PO HS 11/03/14 09/08/19 Citalopram Hydrobromide 40 mg PO DAILY 11/03/14 09/06/19 [Citalopram HBr] Ascorbic Acid [Vitamin C] 500 mg PO DAILY 01/17/16 09/08/19 Cholecalciferol [Vitamin D3 (25 2,000 unit PO BID 01/17/16 09/08/19 Mcg = 1000 Iu)] [facility] Fatty Acids/Fish Oil [Fish 1,000 mg PO DAILY 07/02/16 09/08/19 Oil 1,000 mg Softgel] traZODone HCL 150 mg PO HS 07/02/16 09/08/19 Aspirin EC [Ecotrin Low Dose] 81 mg PO DAILY 11/20/16 09/06/19 Colchicine 0.6 mg PO DAILY 11/20/16 09/08/19 Montelukast [Singulair] 10 mg PO HS 11/20/16 09/08/19 Budesonide/Formoterol Fumarate 2 puff INHALATION RT-BID 02/19/17 09/08/19 [Symbicort 160-4.5 Mcg Inhaler] Metoprolol Tartrate [Lopressor] 25 mg PO BID 02/19/17 09/06/19 lisinopriL [Zestril] 10 mg PO BID 04/29/17 09/08/19 Bisoprolol [Zebeta] 5 mg PO DAILY 08/31/17 09/06/19 Evolocumab [Repatha Syringe] 140 mg SQ Q14D 12/10/18 09/08/19 Magnesium Oxide 400 mg PO BID 12/10/18 09/08/19 INSULIN ASPART (NovoLOG) [NovoLOG 8 unit SQ AC-TID 09/06/19 09/08/19 (formulary)] Insulin Detemir (Levemir) [Levemir] 62 unit SQ BID 09/06/19 09/08/19 Pantoprazole [Protonix] 40 mg PO DAILY 09/06/19 09/08/19 Previous Rx's Medication Instructions Recorded Isosorbide Mononitrate ER [Imdur] 30 mg PO HS #30 tab.er.24h 09/01/17 Amoxic-Pot Clav 875-125Mg 1 each PO Q12HR #14 tab 12/30/18 [Augmentin 875-125] Ferrous Sulfate [Feosol] 325 mg PO BID #60 tablet 12/30/18 INSULIN ASPART (NovoLOG) [NovoLOG 0 unit SQ ACHS vial 12/30/18 (formulary)] traMADol HCl [Ultram] 50 mg PO Q6H PRN #21 tab 09/08/19 Ibuprofen [Motrin] 600 mg PO Q6HR PRN #20 tab 05/07/23 Tamsulosin [Flomax] 0.4 mg PO DAILY #14 cap 05/07/23 Ibuprofen [Motrin] 800 mg PO Q6HR #30 tab 05/18/23 Allergies Allergy/AdvReac Type Severity Reaction Status Date / Time No Known Allergies Allergy Verified 05/18/23 12:37 Review of Systems ROS Statement: Those systems with pertinent positive or pertinent negative responses have been documented in the HPI. ROS Other: All systems not noted in ROS Statement are negative. Past Medical History Past Medical History: Atrial Fibrillation, Coronary Artery Disease (CAD), COPD, Diabetes Mellitus, Hyperlipidemia, Hypertension, Sleep Apnea/CPAP/BIPAP Additional Past Medical History / Comment(s): Obstructive sleep apnea and the patient uses a CPAP. HX KIDNEY STONES, GOUT, BIPOLAR DEPRESSION., gall stone, coronary artery disease him a paroxysmal atrial fibrillation, diabetes mellitus, diverticulosis, colonic polyps, depression, attention, hyperlipidemia History of Any Multi-Drug Resistant Organisms: None Reported Past Surgical History: Heart Catheterization With Stent, Hernia Repair, Orthopedic Surgery, Tonsillectomy Additional Past Surgical History / Comment(s): Pilonidal cyst. EXC ABDI MARIANO RACTS. Bilateral Knee Sx. LITHOTRIPSY. COLONOSCOPY. 05-15-16 at [facility] had heart cath w/1 stent, 05-21-16 had 2 more stents - another stent placed 06/26/17, total of 6 stents. LASIK SX Past Anesthesia/Blood Transfusion Reactions: No Reported Reaction Additional Past Anesthesia/Blood Transfusion Reaction / Comment(s): no hx blood transfusion Date of Last Stent Placement:: 06/25/2017 Past Psychological History: Bipolar, Depression Smoking Status: Former smoker Past Alcohol Use History: None Reported Past Drug Use History: None Reported - Past Family History Mother Family Medical History: Coronary Artery Disease (CAD) Father Family Medical History: Coronary Artery Disease (CAD) Additional Family Medical History / Comment(s): emphysema General Exam - General Exam Comments Initial Comments: General: Alert, in no acute distress Head: atraumatic normocephalic. Eyes PERRL, EOMI intact, mucous membranes moist Respiratory: Lungs clear to auscultation bilaterally Cardiovascular: Heart rate regular rate and rhythm Abdominal: Soft without guarding or rebound Extremities: Normal inspection with full range of motion and normal capillary refill Neuroogic: alert and oriented 3, CN II-XII intact, able to ambulate with steady gait Skin: warm dry and intact with normal color Course Vital Signs 05/18/23 05/18/23 12:33 15:15 Temperature 97.6 F 98.7 F Pulse Rate 78 67 Respiratory 18 20 Rate Blood Pressure 143/64 143/70 O2 Sat by Pulse 95 95 Oximetry Medical Decision Making - Medical Decision Making Was pt. sent in by a medical professional or institution (, PA, [employer]BILE [employer], urgent care, hospital, or care home...) When possible be specific @ -[No] Did you speak to anyone other than the patient for history (EMS, parent, family, police, friend...)? What history was obtained from this source @ -[No] Did you review nursing and triage notes (agree or disagree)? Why? @ -[I reviewed and agree with nursing and triage notes] Were old charts reviewed (outside hosp., previous admission, EMS record, old EKG, old radiological studies, urgent care reports/EKG's, care home records)? Report findings @ -[No old charts were reviewed] Differential Diagnosis (chest pain, altered mental status, abdominal pain women, abdominal pain men, vaginal bleeding, weakness, fever, dyspnea, syncope, headache, dizziness, GI bleed, back pain, seizure, CVA, palpatations, mental health, musculoskeletal)? @ -[not applicable] EKG interpreted by me (3pts min.). @ -[As above] X-rays interpreted by me (1pt min.). @ -[None done] CT interpreted by me (1pt min.). @ -CT negative for any intra-abdominal process U/S interpreted by me (1pt. min.). @ -[None done] What testing was considered but not performed or refused? (CT, X-rays, U/S, labs)? Why? @ -[None] What meds were considered but not given or refused? Why? @ -[None] Did you discuss the management of the patient with other professionals (professionals i.e. , PA, MOBILE [employer]ER, lab, RT, psych nurse, social group worker, content producer, teacher, financial services officer, case picker)? Give summary @ -[No] Was smoking cessation discussed for >3mins.? @ -[No] Was critical care preformed (if so, how long)? @ -[No] Were there social determinants of health that impacted care today? How? (Homelessness, low income, unemployed, alcoholism, drug addiction, transportation, low edu. Level, literacy, decrease access to med. care, retirement, rehab)? @ -[No] Was there de-escalation of care discussed even if they declined (Discuss DNR or withdrawal of care, Hospice)? DNR status @ -[No] What co-morbidities impacted this encounter? (DM, HTN, Smoking, COPD, CAD, Cancer, CVA, ARF, Chemo, Hep., AIDS, mental health diagnosis, sleep apnea, morbid obesity)? @ -[None] Was patient admitted / discharged? Hospital course, mention meds given and route, prescriptions, significant lab abnormalities, going to OR and other pertinent info. @ Discharged. This is a pleasant 72-year-old male who presents to the emergency department with a chief complaint of abdominal pain. Patient will thorough history and physical exam performed on the ED. Physical exam is essentially unremarkable. Heart rate regular rate and rhythm, lungs clear to auscultation bilaterally, abdomen soft nontender. There are no focal neuro deficits noted upon exam. Patient able to move all extremities freely. Patient lab work and imaging performed is essentially unremarkable. Discussed results in detail with the patient verbalized understanding all questions were addressed. She was given Toradol and 1 L of IV fluids with symptomatic relief o n the emergency department. She is agreeable with the plan for discharge home with return precautions discussed. Patient will be discharged home in stable condition case discussed with Dr. Carreno [facility] who agrees with plan of care Undiagnosed new problem with uncertain prognosis? @ -[No] Drug Therapy requiring intensive monitoring for toxicity (Heparin, Nitro, Insulin, Cardizem)? @ -[No] Were any procedures done? @ -[No] Diagnosis/symptom? @ -Abdominal Pain -Left testicular pain Acute, or Chronic, or Acute on Chronic? @ -Acute Uncomplicated (without systemic symptoms) or Complicated (systemic symptoms)? @ -Uncomplicated Side effects of treatment? @ -[No] Exacerbation, Progression, or Severe Exacerbation? @ -[No] Poses a threat to life or bodily function? How? (Chest pain, [place], [place], pneumonia, PE, COPD, DKA, ARF, appy, cholecystitis, CVA, Diverticulitis, Homicidal, Suicidal, threat to staff... and all critical care pts) @ -Low Likelihood - Lab Data Result diagrams: 05/18/23 13:10 05/18/23 12:49 Lab Results 05/18/23 05/18/23 05/18/23 Range/Units 12:49 13:10 13:10 WBC 7.6 (3.8-10.6) k/uL RBC 3.48 L (4.30-5.90) m/uL Hgb 10.5 L (13.0-17.5) gm/dL Hct 31.3 L (39.0-53.0) % MCV 90.2 (80.0-100.0) fL MCH 30.3 (25.0-35.0) pg MCHC 33.6 (31.0-37.0) g/dL RDW 13.9 (11.5-15.5) % Plt Count 227 (150-450) k/uL MPV 8.0 Neutrophils % 72 % Lymphocytes % 14 % Monocytes % 8 % Eosinophils % 4 % Basophils % 0 % Neutrophils # 5.4 (1.3-7.7) k/uL Lymphocytes # 1.1 (1.0-4.8) k/uL Monocytes # 0.6 (0-1.0) k/uL Eosinophils # 0.3 (0-0.7) k/uL Basophils # 0.0 (0-0.2) k/uL Sodium 138 (137-145) mmol/L Potassium 4.6 (3.5-5.1) mmol/L Chloride 107 (98-107) mmol/L Carbon Dioxide 21 L (22-30) mmol/L Anion Gap 10 mmol/L BUN 24 H (9-20) mg/dL Creatinine 1.22 (0.66-1.25) mg/dL Est GFR (CKD-EPI)AfAm 68 (>60 ml/min/1.73 sqM) Est GFR (CKD-EPI)NonAf 59 (>60 ml/min/1.73 sqM) Glucose 151 H (74-99) mg/dL Calcium 8.8 (8.4-10.2) mg/dL Total Bilirubin 0.6 (0.2-1.3) mg/dL AST 35 (17-59) U/L ALT 31 (4-49) U/L Alkaline Phosphatase 60 (38-126) U/L Total Protein 6.9 (6.3-8.2) g/dL Albumin 3.9 (3.5-5.0) g/dL Urine Color Light Yellow Urine Appearance Clear (Clear) Urine pH 5.5 (5.0-8.0) Ur Specific [place] 1.011 (1.001-1.035) Urine Protein 1+ H (Negative) Urine Glucose (UA) Negative (Negative) Urine Ketones Negative (Negative) Urine Blood Negative (Negative) Urine Nitrite Negative (Negative) Urine Bilirubin Negative (Negative) Urine Urobilinogen <2.0 (<2.0) mg/dL Ur Leukocyte Esterase Negative (Negative) Urine WBC 2 (0-5) /hpf Urine Mucus Rare H (None) /hpf Disposition Clinical Impression: Abdominal pain, Hydrocele Disposition: HOME SELF-CARE Condition: Stable Instructions (If sedation given, give patient instructions): Abdominal Pain (ED) Additional Instructions: Please return to the nearest emergency department symptoms worsen or persist Prescriptions: Ibuprofen [Motrin] 800 mg PO Q6HR #30 tab Is patient prescribed a controlled substance at d/c from ED?: No Referrals: [facility],Clinic [Primary Care Provider] - 1-2 days Mendel Kent MD [STAFF PHYSICIAN] - 1-2 days Time of Disposition: 14:40
[2023-05-18 15:15] VITALS: BP 143/70; PULSE 67; RESP 20; TEMP 98.7
== END 2023-05-18 15:15 | disposition home or self-care (01) ==
LOC: EC 12:26
DX: K57.32 Diverticulitis of large intestine without perforation or abscess without bleeding (principal); K80.20 Calculus of gallbladder without cholecystitis without obstruction; N20.0 Calculus of kidney; N43.3 Hydrocele, unspecified; I48.91 Unspecified atrial fibrillation; I25.10 Atherosclerotic heart disease of native coronary artery without angina pectoris; J44.9 Chronic obstructive pulmonary disease, unspecified; E11.9 Type 2 diabetes mellitus without complications; I10 Essential (primary) hypertension; G47.30 Sleep apnea, unspecified; F31.9 Bipolar disorder, unspecified; Z87.891 Personal history of nicotine dependence; Z79.51 Long term (current) use of inhaled steroids; Z79.4 Long term (current) use of insulin; Z79.84 Long term (current) use of oral hypoglycemic drugs; Z79.899 Other long term (current) drug therapy; Z79.82 Long term (current) use of aspirin
CPT/HCPCS: 36415; 80053; 85025; 81001; 74176; 99284; 96374; 96361; J1885; 96375

== ENCOUNTER → 2023-06-26 | Outpatient (CLI) | payer OTHER ==
[2023-06-27 01:27] LABS: LDL Cholesterol,Calculated 63.6 mg/dL (0.0-131.0)
[2023-06-27 01:28] LABS: ALT 39 U/L (10-49); AST 31 U/L (14-35); Albumin 4.6 d/dL (3.8-4.9); Albumin/Globulin Ratio 1.92 Ratio (1.60-3.17); Alkaline Phosphatase 79 U/L (41-126); BUN/Creat Ratio 21.56 Ratio (12.00-20.00); Blood Urea Nitrogen 34.5 mg/dL (9.0-27.0); Calcium 9.6 mg/dL (8.7-10.3); Carbon Dioxide 24.8 mmol/L (21.6-31.8); Chloride 105 mmol/L (96-109); Chol/HDL Ratio 3.76 Ratio; Globulin 2.4 d/dL (1.6-3.3); Glucose 69 mg/dL (70-110); Potassium 4.4 mmol/L (3.5-5.5); Sodium 143 mmol/L (135-145); Total Bilirubin <0.2 mg/dL (0.3-1.2)
== END | disposition home or self-care (01) ==
LOC: LABWHC1 09:30
PROVIDERS: ATTEND Internal Medicine Interventional Cardiology
DX: I10 Essential (primary) hypertension (principal); E78.2 Mixed hyperlipidemia
CPT/HCPCS: 36415; 80053; 80061

== ENCOUNTER 2023-09-06 17:51 | Inpatient (IN) | payer OTHER, MEDICARE ==
[2023-09-06 18:54] LABS: Glucose,Whole Blood 131 mg/dL (70-110)
[2023-09-06] MEDS ORDERED: ACETAMINOPHEN TAB 500 MG TAB PO STA (19:21)
--- NOTE | 2023-09-06 19:25 | ED ---
SOB HPI - General Chief Complaint: Shortness of Breath Stated Complaint: covid/SOB Time Seen by Provider: 09/06/23 18:01 Source: patient Mode of arrival: ambulatory Limitations: no limitations - History of Present Illness Initial Comments: 72-year-old male with past medical history of A. fib, coronary artery disease, diabetes, COPD who presents emergency Department with shortness of breath. He states that today the patient was more short of breath than usual. They went to an urgent care and was found to be Covid positive. He was prescribed Paxil of it. states that his breathing has gotten worse and therefore she brought him to the ER. He does not or oxygen but does wear CPAP at night. He denies any chest pain. Did have some nausea without vomiting. He does have an albuterol inhaler which she states does help the symptoms. Denies any lower extremity swelling. Patient does not take any diuretics. No history of congestive heart failure. No recent use of antibiotics or steroids. No other alleviating, precipitating or modifying factors - Related Data Home Medications Medication Instructions Recorded Confirmed ARIPiprazole [Abilify] 7.5 mg PO HS 11/03/14 09/08/19 Citalopram Hydrobromide 40 mg PO DAILY 11/03/14 09/06/19 [Citalopram HBr] Ascorbic Acid [Vitamin C] 500 mg PO DAILY 01/17/16 09/08/19 Cholecalciferol [Vitamin D3 (25 2,000 unit PO BID 01/17/16 09/08/19 Mcg = 1000 Iu)] [place] Fatty Acids/Fish Oil [Fish 1,000 mg PO DAILY 07/02/16 09/08/19 Oil 1,000 mg Softgel] traZODone HCL 150 mg PO HS 07/02/16 09/08/19 Aspirin EC [Ecotrin Low Dose] 81 mg PO DAILY 11/20/16 09/06/19 Colchicine 0.6 mg PO DAILY 11/20/16 09/08/19 Montelukast [Singulair] 10 mg PO HS 11/20/16 09/08/19 Budesonide/Formoterol Fumarate 2 puff INHALATION RT-BID 02/19/17 09/08/19 [Symbicort 160-4.5 Mcg Inhaler] Metoprolol Tartrate [Lopressor] 25 mg PO BID 02/19/17 09/06/19 lisinopriL [Zestril] 10 mg PO BID 04/29/17 09/08/19 Bisoprolol [Zebeta] 5 mg PO DAILY 08/31/17 09/06/19 Evolocumab [Repatha Syringe] 140 mg SQ Q14D 12/10/18 09/08/19 Magnesium Oxide 400 mg PO BID 12/10/18 09/08/19 INSULIN ASPART (NovoLOG) [NovoLOG 8 unit SQ AC-TID 09/06/19 09/08/19 (formulary)] Insulin Detemir (Levemir) [Levemir] 62 unit SQ BID 09/06/19 09/08/19 Pantoprazole [Protonix] 40 mg PO DAILY 09/06/19 09/08/19 Previous Rx's Medication Instructions Recorded Isosorbide Mononitrate ER [Imdur] 30 mg PO HS #30 tab.er.24h 09/01/17 Amoxic-Pot Clav 875-125Mg 1 each PO Q12HR #14 tab 12/30/18 [Augmentin 875-125] Ferrous Sulfate [Feosol] 325 mg PO BID #60 tablet 12/30/18 INSULIN ASPART (NovoLOG) [NovoLOG 0 unit SQ ACHS vial 12/30/18 (formulary)] traMADol HCl [Ultram] 50 mg PO Q6H PRN #21 tab 09/08/19 Ibuprofen [Motrin] 600 mg PO Q6HR PRN #20 tab 05/07/23 Tamsulosin [Flomax] 0.4 mg PO DAILY #14 cap 05/07/23 Ibuprofen [Motrin] 800 mg PO Q6HR #30 tab 05/18/23 Ibuprofen [Motrin] 800 mg PO Q8HR PRN #30 tab 05/18/23 Allergies Allergy/AdvReac Type Severity Reaction Status Date / Time No Known Allergies Allergy Verified 09/06/23 17:59 Review of Systems ROS Statement: Those systems with pertinent positive or pertinent negative responses have been documented in the HPI. ROS Other: All systems not noted in ROS Statement are negative. Past Medical History Past Medical History: Atrial Fibrillation, Coronary Artery Disease (CAD), COPD, Diabetes Mellitus, Hyperlipidemia, Hypertension, Sleep Apnea/CPAP/BIPAP Additional Past Medical History / Comment(s): Obstructive sleep apnea and the patient uses a CPAP. HX KIDNEY STONES, GOUT, BIPOLAR DEPRESSION., gall stone, coronary artery disease him a paroxysmal atrial fibrillation, diabetes mellitus, diverticulosis, colonic polyps, depression, attention, hyperlipidemia History of Any Multi-Drug Resistant Organisms: None Reported Past Surgical History: Heart Catheterization With Stent, Hernia Repair, Orthopedic Surgery, Tonsillectomy Additional Past Surgical History / Comment(s): Pilonidal cyst. EXC ABDI CATARACTS. Bilateral Knee Sx. LITHOTRIPSY. COLONOSCOPY. 05-15-16 at [facility] had heart cath w/1 stent, 05-21-16 had 2 more stents - another stent placed 06/26/17, total of 6 stents. LASIK SX Past Anesthesia/Blood Transfusion Reactions: No Reported Reaction Additional Past Anesthesia/Blood Transfusion Reaction / Comment(s): no hx blood transfusion Date of Last Stent Placement:: 06/25/2017 Past Psychological History: Bipolar, Depression Smoking Status: Former smoker Past Alcohol Use History: None Reported Past Drug Use History: None Reported - Past Family History Mother Family Medical History: Coronary Artery Disease (CAD) Father Family Medical History: Coronary Artery Disease (CAD) Additional Family Medical History / Comment(s): emphysema General Exam Limitations: no limitations General appearance: alert Head exam: Present: atraumatic, normocephalic, normal inspection Eye exam: Present: normal appearance, PERRL, EOMI. Absent: scleral icterus, conjunctival injection, periorbital swelling ENT exam: Present: normal exam, mucous membranes moist Neck exam: Present: normal inspection. Absent: tenderness, meningismus, lymphadenopathy Respiratory exam: Present: rales, accessory muscle use, decreased breath sounds, other (Tachypnea) Cardiovascular Exam: Present: regular rate, normal rhythm, normal heart sounds. Absent: systolic murmur, diastolic murmur, rubs, gallop, clicks GI/Abdominal exam: Present: soft, normal bowel sounds. Absent: distended, tenderness, guarding, rebound, rigid Neurological exam: Present: alert, oriented X3, CN II-XII intact Psychiatric exam: Present: normal affect, normal mood Skin exam: Present: diaphoretic Course Vital Signs 09/06/23 09/06/23 09/06/23 17:56 19:08 20:39 Temperature 98.9 F 101.9 F H 99.6 F Pulse Rate 95 99 Respiratory 24 26 H Rate Blood Pressure 179/93 160/73 O2 Sat by Pulse 95 93 L 90 L Oximetry Fraction of Inspired Oxygen (FIO2) 09/06/23 09/06/23 09/06/23 21:50 21:58 22:31 Temperature 102.3 F H Pulse Rate 98 Respiratory 22 22 Rate Blood Pressure 167/72 O2 Sat by Pulse 98 Oximetry Fraction of Inspired Oxygen (FIO2) 09/06/23 22:39 Temperature Pulse Rate Respiratory Rate Blood Pressure O2 Sat by Pulse Oximetry Fraction of 40 Inspired Oxygen (FIO2) Medical Decision Making - Medical Decision Making Was pt. sent in by a medical professional or institution (, PA, JUKEBOX CHECKER, urgent care, hospital, or correction...) When possible be specific @ -No Did you speak to anyone other than the patient for history (EMS, parent, family, police, friend...)? What history was obtained from this source @ -I spoke with the patient's Did you review nursing and triage notes (agree or disagree)? Why? @ -I reviewed and agree with nursing and triage notes Were old charts reviewed (outside hosp., previous admission, EMS record, old EKG, old radiological studies, urgent care reports/EKG's, correction records)? Report findings @ -No old charts were reviewed Differential Diagnosis (chest pain, altered mental status, abdominal pain women, abdominal pain men, vaginal bleeding, weakness, fever, dyspnea, syncope, headache, dizziness, GI bleed, back pain, seizure, CVA, palpatations, mental health, musculoskeletal)? @ -Differential Dyspnea: Coronary syndrome, arrhythmia, tamponade, asthma, COPD, pulmonary embolism, pneumonia, pneumothorax, pulmonary effusion, anaphylaxis, diabetic ketoacidosis, flailed chest, pulmonary contusion, diaphragmatic rupture, anemia, neuromuscular, this is not meant to be an all-inclusive list. EKG interpreted by me (3pts min.). @ -Yes and demonstrates sinus rhythm with a rate of 97. [place] interval 194. QRS 94. QTC of 398. No acute ST segment elevations or depressions X-rays interpreted by me (1pt min.). @ -Yes and demonstrates pulmonary vascular congestion CT interpreted by me (1pt min.). @ -None done U/S interpreted by me (1pt. min.). @ -None done What testing was considered but not performed or refused? (CT, X-rays, U/S, labs)? Why? @ -None What meds were considered but not given or refused? Why? @ -None Did you discuss the management of the patient with other professionals (professionals i.e. , PA, JUKEBOX CHECKER, lab, RT, psych nurse, social director, auto refinisher, teacher, chief green officer, casework supervisor)? Give summary @ -I spoke with Dr. Ryan for admission Was smoking cessation discussed for >3mins.? @ -No Was critical care preformed (if so, how long)? @ -No Were there social determinants of health that impacted care today? How? (Homeles sness, low income, unemployed, alcoholism, drug addiction, transportation, low edu. Level, literacy, decrease access to med. care, correction, rehab)? @ -No Was there de-escalation of care discussed even if they declined (Discuss DNR or withdrawal of care, Hospice)? DNR status @ -No What co-morbidities impacted this encounter? (DM, HTN, Smoking, COPD, CAD, Cancer, CVA, ARF, Chemo, Hep., AIDS, mental health diagnosis, sleep apnea, morbid obesity)? @ -COPD, coronary artery disease Was patient admitted / discharged? Hospital course, mention meds given and route, prescriptions, significant lab abnormalities, going to OR and other pertinent info. @ -Upon arrival patient was placed into room 26. Thorough history and physical exam was performed. IV access is established and laboratory studies are conducted. Chest x-ray was performed. Patient does have increased work of breathing and therefore I do feel that the patient needs to be admitted. Albuterol treatments, steroids, magnesium are ordered. I discussed Lasix treatments with Dr. ryan and patient will be given one dose. Patient does use a CPAP at night. Because of his increased work of breathing I do feel that the patient will require a BiPAP when necessary. He is placed on this before he goes upstairs. Patient is admitted to Dr. Ryan with pulmonology on consult. Patient taken to the floor in stable condition Undiagnosed new problem with uncertain prognosis? @ -Yes Drug Therapy requiring intensive monitoring for toxicity (Heparin, Nitro, Insulin, Cardizem)? @ -No Were any procedures done? @ -No Diagnosis/symptom? @ -Acute respiratory insufficiency, acute Covid infection, acute pyrexia Acute, or Chronic, or Acute on Chronic? @ -Acute Uncomplicated (without systemic symptoms) or Complicated (systemic symptoms)? @ -Complicated Side effects of treatment? @ -No Exacerbation, Progression, or Severe Exacerbation? @ -No Poses a threat to life or bodily function? How? (Chest pain, USA, MD, pneumonia, PE, COPD, DKA, ARF, appy, cholecystitis, CVA, Diverticulitis, Homicidal, Suicidal, threat to staff... and all critical care pts) @ -Yes patient does demonstrate significant respiratory distress - Lab Data Result diagrams: 09/06/23 19:06 09/06/23 19:06 Lab Results 09/06/23 09/06/23 09/06/23 Range/Units 18:51 19:06 19:06 WBC 8.2 (3.8-10.6) k/uL RBC 4.48 (4.30-5.90) m/uL Hgb 13.1 (13.0-17.5) gm/dL Hct 39.5 (39.0-53.0) % MCV 88.1 (80.0-100.0) fL MCH 29.1 (25.0-35.0) pg MCHC 33.1 (31.0-37.0) g/dL RDW 14.2 (11.5-15.5) % Plt Count 191 (150-450) k/uL MPV 7.7 Neutrophils % 76 % Lymphocytes % 8 % Monocytes % 13 % Eosinophils % 1 % Basophils % 0 % Neutrophils # 6.2 (1.3-7.7) k/uL Lymphocytes # 0.6 L (1.0-4.8) k/uL Monocytes # 1.0 (0-1.0) k/uL Eosinophils # 0.1 (0-0.7) k/uL Basophils # 0.0 (0-0.2) k/uL Sodium 138 (137-145) mmol/L Potassium 4.0 (3.5-5.1) mmol/L Chloride 101 (98-107) mmol/L Carbon Dioxide 26 (22-30) mmol/L Anion Gap 11 mmol/L BUN 25 H (9-20) mg/dL Creatinine 1.21 (0.66-1.25) mg/dL Est GFR (CKD-EPI)AfAm 69 (>60 ml/min/1.73 sqM) Est GFR (CKD-EPI)NonAf 60 (>60 ml/min/1.73 sqM) Glucose 120 H (74-99) mg/dL POC Glucose (mg/dL) 131 H (70-110) mg/dL POC Glu Lithographic Plate Maker Apprentice ID Coby Martinez Plasma Lactic Acid Donnell (0.7-2.0) mmol/L Calcium 9.3 (8.4-10.2) mg/dL Total Bilirubin 0.4 (0.2-1.3) mg/dL AST 44 (17-59) U/L ALT 41 (4-49) U/L Alkaline Phosphatase 79 (38-126) U/L NT-Pro-B Natriuret Pep pg/mL Total Protein 7.7 (6.3-8.2) g/dL Albumin 4.7 (3.5-5.0) g/dL 09/06/23 09/06/23 Range/Units 19:06 19:06 WBC (3.8-10.6) k/uL RBC (4.30-5.90) m/uL Hgb (13.0-17.5) gm/dL Hct (39.0-53.0) % MCV (80.0-100.0) fL MCH (25.0-35.0) pg MCHC (31.0-37.0) g/dL RDW (11.5-15.5) % Plt Count (150-450) k/uL MPV Neutrophils % % Lymphocytes % % Monocytes % % Eosinophils % % Basophils % % Neutrophils # (1.3-7.7) k/uL Lymphocytes # (1.0-4.8) k/uL Monocytes # (0-1.0) k/uL Eosinophils # (0-0.7) k/uL Basophils # (0-0.2) k/uL Sodium (137-145) mmol/L Potassium (3.5-5.1) mmol/L Chloride (98-107) mmol/L Carbon Dioxide (22-30) mmol/L Anion Gap mmol/L BUN (9-20) mg/dL Creatinine (0.66-1.25) mg/dL Est GFR (CKD-EPI)AfAm (>60 ml/min/1.73 sqM) Est GFR (CKD-EPI)NonAf (>60 ml/min/1.73 sqM) Glucose (74-99) mg/dL POC Glucose (mg/dL) (70-110) mg/dL POC Glu Lithographic Plate Maker Apprentice ID Plasma Lactic Acid Donnell 1.2 (0.7-2.0) mmol/L Calcium (8.4-10.2) mg/dL Total Bilirubin (0.2-1.3) mg/dL AST (17-59) U/L ALT (4-49) U/L Alkaline Phosphatase (38-126) U/L NT-Pro-B Natriuret Pep 258 pg/mL Total Protein (6.3-8.2) g/dL Albumin (3.5-5.0) g/dL Disposition Clinical Impression: COVID-19, Acute pulmonary edema Disposition: ADMITTED IP TO THIS HOSP Condition: Stable Is patient prescribed a controlled substance at d/c from ED?: No Time of Disposition: 21:08 Decision to Admit Reason: Admit from EC Decision Date: 09/06/23 Decision Time: 21:08
[2023-09-06 19:36] LABS: ALT 41 U/L (4-49); AST 44 U/L (17-59); African American GFR (CKD) 69 (>60 ml/min/1.73 sqM); Albumin 4.7 g/dL (3.5-5.0); Alkaline Phosphatase 79 U/L (38-126); Anion Gap 11 mmol/L; Blood Urea Nitrogen 25 mg/dL (9-20); Calcium 9.3 mg/dL (8.4-10.2); Carbon Dioxide 26 mmol/L (22-30); Chloride 101 mmol/L (98-107); Glucose 120 mg/dL (74-99); Non-African American GFR(CKD) 60 (>60 ml/min/1.73 sqM); Sodium 138 mmol/L (137-145); Total Bilirubin 0.4 mg/dL (0.2-1.3); Total Protein 7.7 g/dL (6.3-8.2)
[2023-09-06 19:52] LABS: Basophils % (A) 0 %; Eosinophils # (A) 0.1 k/uL (0-0.7); Eosinophils % (A) 1 %; HCT 39.5 % (39.0-53.0); HGB 13.1 gm/dL (13.0-17.5); Lymphocytes # (A) 0.6 k/uL (1.0-4.8); Lymphocytes % (A) 8 %; MCH 29.1 pg (25.0-35.0); MCHC 33.1 g/dL (31.0-37.0); MCV 88.1 fL (80.0-100.0); Mean Platelet Volume 7.7; Monocytes % (A) 13 %; Neutrophils # (A) 6.2 k/uL (1.3-7.7); Neutrophils % (A) 76 %; Platelet Count 191 k/uL (150-450); RBC 4.48 m/uL (4.30-5.90); RDW 14.2 % (11.5-15.5); WBC 8.2 k/uL (3.8-10.6)
--- NOTE | 2023-09-06 20:10 | XR ---
EXAMINATION TYPE: XR chest 2V DATE OF EXAM: 09/06/2023 7:57 PM CLINICAL INDICATION:Male, 72 years old with history of difficulty breathing; [facility] COMPARISON: Chest radiographs from 09/09/2018 TECHNIQUE: XR chest 2V Frontal and lateral views of the chest. FINDINGS: Lungs/Pleura: There is no evidence of pleural effusion, focal consolidation, or pneumothorax. Pulmonary vascularity: Pulmonary vascular congestion. Heart/mediastinum: Cardiomediastinal silhouette is enlarged and stable. Musculoskeletal: No acute osseous pathology. IMPRESSION: Cardiomegaly and mild pulmonary vascular congestion. Correlate with BNP for congestive heart failure.
[2023-09-06] MEDS ORDERED: methylPREDNISolone SOD SUCCI 125 MG/2 ML VIAL IV STA (20:49)
[2023-09-06] MEDS ORDERED: ALBUTEROL NEBULIZED 2.5 MG/3 ML INHALATION SCH (21:00)
[2023-09-06] MEDS ORDERED: FUROSEMIDE 10 MG/ML 4 ML VIAL IV STA (21:18)
[2023-09-06] MEDS ORDERED: ACETAMINOPHEN TAB 325 MG TAB PO PRN (21:20)
[2023-09-06] MEDS ORDERED: IBUPROFEN 400 MG TAB PO PRN (21:20)
[2023-09-06] MEDS ORDERED: NALOXONE 0.4 MG/ML 1 ML VIAL IV PRN (21:20)
[2023-09-06] MEDS ORDERED: ALBUTEROL HFA INHALER INHALATION PRN (21:47)
[2023-09-06] MEDS ORDERED: DEXTROSE 50% SYRINGE 50 ML IVP PRN ×2 (23:54)
[2023-09-07] MEDS ORDERED: methylPREDNISolone SOD SUCCI 40 MG/ML 1 ML VIAL IV SCH
--- NOTE | 2023-09-07 01:43 | P.CNPUL ---
History of Present Illness Consult date: 09/07/23 Requesting physician: Elayne Rebollar Reason for consult: dyspnea, COPD Chief complaint: Shortness of breath History of present illness: I am seeing this patient in new consultation today 09/07/2023 after the patient started to have URI-like symptoms two days ago and tested positive for COVID-19 outpatient. Patient is a 72-year-old white male with past medical history significant for COPD with an FEV1 53% of predicted, obstructive sleep apnea with home CPAP, hyperlipidemia, hypertension, diabetes mellitus, coronary artery disease with multiple previous stents, among other things. He does follow with Dr. Au in the pulmonary office for managment of his moderate COPD and DARLIN. Patient reportedly has received his COVID-19 vaccination and was recently boosted. Starting two days ago, the patient reports symptoms of rhinorrhea, sore throat, nonproductive cough, fevers, chills, and shortness of breath that worsened overnight. Denies any nausea, vomiting, diarrhea. Patient was reported ly started on Paxlovid by an urgent care clinic. On arrival to the emergency room, yesterday evening, he was found to be hypoxic, and placed on BiPAP with settings 12/6 and FiO2 40%. Chest x-ray showed cardiomegaly with mild pulmonary vascular congestion. No focal infiltrates. CBC on arrival was unremarkable. No leukocytosis. BMP was also unremarkable. NT proBNP not particularly elevated at 258. EKG shows normal sinus rhythm without any obvious ischemic changes. Patient denies any chest pain, heart palpitations, orthopnea, lower extremity edema. Patient is currently sitting up in bed, on BiPAP with above- mentioned settings, in no acute distress. No signs of hypercapnic encephalopath y. He is achieving tidal volumes of around 350 and his respiratory rate is in the mid 20s. He continues to spike intermittent fevers with a T-max of 102.3F. Vital signs are otherwise stable. Patient was started on a combination of albuterol inhaler, Symbicort inhaler, IV Solu-Medrol. He is being monitored on the cardiac stepdown unit. Review of Systems REVIEW OF SYSTEMS: CONSTITUTIONAL: Denies any recent significant weight loss or weight gain. EYES: Denies change in vision. EARS, NOSE, MOUTH, THROAT: Denies headaches, denies sore throat. CARDIOVASCULAR: Denies chest pain, palpitations or syncopal episodes. RESPIRATORY: See HPI GASTROINTESTINAL: Denies change in appetite, abdominal pain, nausea and vomiting, or diarrhea GENITOURINARY: Denies hematuria, denies infections. MUSKULOSKELETAL: Denies pain, denies swelling. INTEGUMENTARY: Denies rash, denies eczema. NEUROLOGICAL: Denies recent memory loss, no recent seizure activity. PSYCHIATRIC: Denies anxiety, denies depression. HEMATOLOGIC/LYMPHATIC: Denies anemia, denies enlarged lymph node Past Medical History Past Medical History: Atrial Fibrillation, Coronary Artery Disease (CAD), COPD, Diabetes Mellitus, Hyperlipidemia, Hypertension, Sleep Apnea/CPAP/BIPAP Additional Past Medical History / Comment(s): Obstructive sleep apnea and the patient uses a CPAP. HX KIDNEY STONES, GOUT, BIPOLAR DEPRESSION., gall stone, coronary artery disease him a paroxysmal atrial fibrillation, diabetes mellitus, diverticulosis, colonic polyps, depression, attention, hyperlipidemia History of Any Multi-Drug Resistant Organisms: None Reported Past Surgical History: Heart Catheterization With Stent, Hernia Repair, Orthopedic Surgery, Tonsillectomy Additional Past Surgical History / Comment(s): Pilonidal cyst. EXC ABDI CATARACTS. Bilateral Knee Sx. LITHOTRIPSY. COLONOSCOPY. 05-15-16 at [facility] had heart cath w/1 stent, 05-21-16 had 2 more stents - another stent placed 06/26/17, total of 6 stents. LASIK SX Past Anesthesia/Blood Transfusion Reactions: No Reported Reaction Additional Past Anesthesia/Blood Transfusion Reaction / Comment(s): no hx blood transfusion Date of Last Stent Placement:: 06/25/2017 Past Psychological History: Bipolar, Depression Additional Psychological History / Comment(s): pt admitted to 5 past suicide attempts. pt lives at home with his common law ekaterina. Smoking Status: Former smoker Past Alcohol Use History: None Reported Additional Past Alcohol Use History / Comment(s): started smoking at age 16 (1965) stopped at age 65() smoked, 1ppd. Past Drug Use History: None Reported - Past Family History Mother Family Medical History: Coronary Artery Disease (CAD) Father Family Medical History: Coronary Artery Disease (CAD) Additional Family Medical History / Comment(s): emphysema Medications and Allergies Home Medications Medication Instructions Recorded Confirmed Type ARIPiprazole [Abilify] 7.5 mg PO HS 11/03/14 09/08/19 History Citalopram Hydrobromide 40 mg PO DAILY 11/03/14 09/06/19 History [Citalopram HBr] Ascorbic Acid [Vitamin C] 500 mg PO DAILY 01/17/16 09/08/19 History Cholecalciferol [Vitamin D3 (25 2,000 unit PO BID 01/17/16 09/08/19 History Mcg = 1000 Iu)] [place]-3 Fatty Acids/Fish Oil [Fish 1,000 mg PO DAILY 07/02/16 09/08/19 History Oil 1,000 mg Softgel] traZODone HCL 150 mg PO HS 07/02/16 09/08/19 History Aspirin EC [Ecotrin Low Dose] 81 mg PO DAILY 11/20/16 09/06/19 History Colchicine 0.6 mg PO DAILY 11/20/16 09/08/19 History Montelukast [Singulair] 10 mg PO HS 11/20/16 09/08/19 History Budesonide/Formoterol Fumarate 2 puff INHALATION RT-BID 02/19/17 09/08/19 History [Symbicort 160-4.5 Mcg Inhaler] Metoprolol Tartrate [Lopressor] 25 mg PO BID 02/19/17 09/06/19 History lisinopriL [Zestril] 10 mg PO BID 04/29/17 09/08/19 History Bisoprolol [Zebeta] 5 mg PO DAILY 08/31/17 09/06/19 History Isosorbide Mononitrate ER [Imdur] 30 mg PO HS #30 tab.er.24h 09/01/17 09/08/19 Rx Evolocumab [Repatha Syringe] 140 mg SQ Q14D 12/10/18 09/08/19 History Magnesium Oxide 400 mg PO BID 12/10/18 09/08/19 History Amoxic-Pot Clav 875-125Mg 1 each PO Q12HR #14 tab 12/30/18 09/08/19 Rx [Augmentin 875-125] Ferrous Sulfate [Feosol] 325 mg PO BID #60 tablet 12/30/18 09/08/19 Rx INSULIN ASPART (NovoLOG) [NovoLOG 0 unit SQ ACHS vial 12/30/18 09/08/19 Rx (formulary)] INSULIN ASPART (NovoLOG) [NovoLOG 8 unit SQ AC-TID 09/06/19 09/08/19 History (formulary)] Insulin Detemir (Levemir) [Levemir] 62 unit SQ BID 09/06/19 09/08/19 History Pantoprazole [Protonix] 40 mg PO DAILY 09/06/19 09/08/19 History traMADol HCl [Ultram] 50 mg PO Q6H PRN #21 tab 09/08/19 Rx Ibuprofen [Motrin] 600 mg PO Q6HR PRN #20 tab 05/07/23 Rx Tamsulosin [Flomax] 0.4 mg PO DAILY #14 cap 05/07/23 Rx Ibuprofen [Motrin] 800 mg PO Q6HR #30 tab 05/18/23 Rx Ibuprofen [Motrin] 800 mg PO Q8HR PRN #30 tab 05/18/23 Rx Allergies Allergy/AdvReac Type Severity Reaction Status Date / Time No Known Allergies Allergy Verified 09/06/23 17:59 Physical Exam Vitals: Vital Signs Temp Pulse Pulse Resp BP BP Pulse Ox 09/06/23 23:27 09/06/23 23:16 100.5 F H 93 30 H 163/72 95 09/06/23 22:39 09/06/23 22:31 98 22 167/72 98 09/06/23 21:58 22 09/06/23 21:50 102.3 F H 09/06/23 20:39 99.6 F 99 26 H 160/73 90 L 09/06/23 19:08 101.9 F H 93 L 09/06/23 17:56 98.9 F 95 24 179/93 95 FiO2 09/06/23 23:27 40 09/06/23 23:16 40 09/06/23 22:39 40 09/06/23 22:31 09/06/23 21:58 09/06/23 21:50 09/06/23 20:39 09/06/23 19:08 09/06/23 17:56 Intake and Output 09/06/23 09/06/23 09/07/23 14:59 22:59 06:59 Other: Weight 117.027 kg 117.027 kg GENERAL EXAM: Alert, 72-year-old white male appearing stated age , on BiPAP, fairly comfortable in no apparent distress. HEAD: Normocephalic and atraumatic EYES: Normal reaction of pupils, equal size. NOSE: Clear with pink turbinates. THROAT: No erythema or exudates. NECK: No masses, no JVD. CHEST: No chest wall deformity. LUNGS: Equal air entry with diffuse rhonchi and expiratory wheezing On BiPAP with settings of 12/6 and FiO2 of 40%. No conversational dyspnea or accessory muscle use.. CVS: S1 and S2 normal with no audible murmur, regular rhythm. No extra heart sounds ABDOMEN: No hepatosplenomegaly, active bowel sounds, no guarding or rigidity. SPINE: No scoliosis or deformity SKIN: No rashes CENTRAL NERVOUS SYSTEM: No focal deficits, tone is normal in all 4 extremities. EXTREMITIES: There is no peripheral edema, clubbing, or cyanosis. Peripheral pulses are intact. Results - Laboratory Findings CBC and BMP: 09/06/23 19:06 09/06/23 19:06 PT/INR, D-dimer D-Dimer 0.90 mg/L FEU (<0.60) H 09/07/23 00:01 Abnormal lab findings: Abnormal Labs 09/06/23 09/06/23 09/06/23 18:51 19:06 19:06 Lymphocytes # 0.6 L D-Dimer BUN 25 H Glucose 120 H POC Glucose (mg/dL) 131 H 09/07/23 00:01 Lymphocytes # D-Dimer 0.90 H BUN Glucose POC Glucose (mg/dL) - Diagnostic Findings Chest x-ray: image reviewed Assessment and Plan Assessment: Acute COPD exacerbation, secondary to acute COVID-19 infection, chest x-ray showed cardiomegaly with mild pulmonary vascular congestion, however, NT pro-BNP not significantly elevated. No focal infiltrates or superimposed pneumonia. Patient reportedly tested positive for COVID-19 outpatient. Acute COVID-19 infection Acute hypoxemic respiratory failure, secondary to above Obstructive sleep apnea, with home CPAP History of paroxysmal atrial fibrillation, currently in normal sinus rhythm, non-anticoagulated Coronary artery disease with previous coronary stents Insulin-dependent diabetes mellitus Hyperlipidemia Benign essential hypertension Obesity with a BMI of 37 kg/m Former tobacco smoker Plan: Patient's medications, labs, chest x-ray reviewed Continue BiPAP with current settings Continue combination of albuterol HFA, Symbicort, and IV Solu-Medrol. Lovenox for DVT prophylaxis Tylenol as antipyretic Continue supportive care We will continue to follow, and further recommendations are fourth coming. I have personally seen and examined the patient, performed the documentation and the assessment and plan as written. Number of minutes spent on the visit:20 Time with Patient: Greater than 30
[2023-09-07] MEDS ORDERED: IPRATROPIUM-ALBUTEROL 3 ML NEB INHALATION PRN ×2 (03:29→10:05)
--- NOTE | 2023-09-07 03:31 | P.HPIM ---
History of Present Illness H&P Date: 09/06/23 Patient is a 72-year-old male with a PMH of COPD, A. fib (not on anticoagulation, unknown reason), CAD status post multiple stents, type II DM, hypertension, hyperlipidemia, BPH, and DARLIN on CPAP presents to the emergency room with complaints of URI like symptoms. Patient reports that over the past 2 days he developed gradually worsening nonproductive cough, fever, chills, sore throat, and runny nose. He also then developed shortness of breath earlier today which prompted him to go to a local urgent care center where patient tested positive for COVID-19. Upon arrival at the emergency room, the patient was initially 95% on room air but subsequently had an SpO2 of 90% and was placed on nasal cannula oxygen. He had a T-max 102.3F. Of note, the patient has previously received vaccination against COVID-19. At time of interview, patient reported feeling somewhat better since arrival. He denied experiencing chest discomfort, lower extremity swelling, orthopnea, abdominal pain, nausea, vomiting, diarrhea. In the emergency room a chest x-ray revealed findings of pulmonary venous conge stion. EKG revealed sinus rhythm at [address]/T-wave changes noted as reviewed by me. Laboratory evaluation revealed a proBNP 258, d-dimer of 0.9, BUN 25, with troponin 0.021. ED documentation reviewed and case discussed with ED provider. Review of systems: Pertinent positives and negatives as discussed in HPI, a complete review of systems was performed and all other systems are negative. Physical examination: Vital signs reviewed General: non toxic, no distress, appears at stated age, morbidly obese Derm: no unusual rashes/lesions, warm Head: atraumatic, normocephalic, symmetric Eyes: EOMI, no lid lag, anicteric sclera, pupils equal round reactive to light ENT: Nose and ears atraumatic Neck: No cervical lymphadenopathy, trachea midline, supple Mouth: no lip lesion, mucus membranes moist Cardiovascular: S1S2 reg, no murmur, positive dorsalis pedis pulse bilateral, no edema Lungs: Mild diffuse coarse breath sounds with mild expiratory wheezing, no accessory muscle use Abdominal: soft, nontender to palpation, no guarding Ext: muscle strength 5 out of 5 in all 4 extremities grossly, no gross muscle atrophy, no contractures, Neuro: CN II-XI grossly intact, no gross focal neuro deficits Psych: Alert, oriented, appropriate affect Assessment: Acute hypoxic respiratory failure in setting of acute COVID-19 pneumonitis Acute COPD exacerbation Elevated d-dimer Chronic conditions: A. fib, CAD, type II DM, hypertension, hyperlipidemia, BPH Imaging: In the emergency room a chest x-ray revealed findings of pulmonary venous congestion. EKG revealed sinus rhythm at [address]/T-wave changes noted as reviewed by me. Data Review: Laboratory evaluation revealed a proBNP 258, d-dimer of 0.9, BUN 25, with troponin 0.021. Plan: Pulmonary consulted Continue with Solu-Medrol 60 mg IV every 6 hour Initiate DuoNeb's [id number] and as needed Low suspicion for acute CHF exacerbation at this time. Obtain echocardiogram (last echocardiogram from 09/19 revealed 50-55% LVEF) Insulin sliding scale and blood glucose monitoring. Continue home Levemir 80 units twice a day Cardiac monitoring Check pro calcitonin levels BiPAP overnight as patient does not have his CPAP and does not recall his settings DVT prophylaxis: Lovenox subcu The patient is admitted with an anticipated greater than 2 midnight stay for evaluation of COVID pneumonia CODE STATUS: Full Code Discussed with: Patient Anticipated discharge place: Home Past Medical History Past Medical History: Atrial Fibrillation, Coronary Artery Disease (CAD), COPD, Diabetes Mellitus, Hyperlipidemia, Hypertension, Sleep Apnea/CPAP/BIPAP Additional Past Medical History / Comment(s): Obstructive sleep apnea and the patient uses a CPAP. HX KIDNEY STONES, GOUT, BIPOLAR DEPRESSION., gall stone, coronary artery disease him a paroxysmal atrial fibrillation, diabetes mellitus, diverticulosis, colonic polyps, depression, attention, hyperlipidemia History of Any Multi-Drug Resistant Organisms: None Reported Past Surgical History: Heart Catheterization With Stent, Hernia Repair, Orthopedic Surgery, Tonsillectomy Additional Past Surgical History / Comment(s): Pilonidal cyst. EXC ABDI CATARACTS. Bilateral Knee Sx. LITHOTRIPSY. COLONOSCOPY. 05-15-16 at [facility] had heart cath w/1 stent, 05-21-16 had 2 more stents - another stent placed 06/26/17, total of 6 stents. LASIK SX Past Anesthesia/Blood Transfusion Reactions: No Reported Reaction Additional Past Anesthesia/Blood Transfusion Reaction / Comment(s): no hx blood transfusion Date of Last Stent Placement:: 06/25/2017 Past Psychological History: Bipolar, Depression Smoking Status: Former smoker Past Alcohol Use History: None Reported Past Drug Use History: None Reported - Past Family History Mother Family Medical History: Coronary Artery Disease (CAD) Father Family Medical History: Coronary Artery Disease (CAD) Additional Family Medical History / Comment(s): emphysema Medications and Allergies Home Medications Medication Instructions Recorded Confirmed Type ARIPiprazole [Abilify] 7.5 mg PO HS 11/03/14 09/08/19 History Citalopram Hydrobromide 40 mg PO DAILY 11/03/14 09/06/19 History [Citalopram HBr] Ascorbic Acid [Vitamin C] 500 mg PO DAILY 01/17/16 09/08/19 History Cholecalciferol [Vitamin D3 (25 2,000 unit PO BID 01/17/16 09/08/19 History Mcg = 1000 Iu)] [place]-3 Fatty Acids/Fish Oil [Fish 1,000 mg PO DAILY 07/02/16 09/08/19 History Oil 1,000 mg Softgel] traZODone HCL 150 mg PO HS 07/02/16 09/08/19 History Aspirin EC [Ecotrin Low Dose] 81 mg PO DAILY 11/20/16 09/06/19 History Colchicine 0.6 mg PO DAILY 11/20/16 09/08/19 History Montelukast [Singulair] 10 mg PO HS 11/20/16 09/08/19 History Budesonide/Formoterol Fumarate 2 puff INHALATION RT-BID 02/19/17 09/08/19 History [Symbicort 160-4.5 Mcg Inhaler] Metoprolol Tartrate [Lopressor] 25 mg PO BID 02/19/17 09/06/19 History lisinopriL [Zestril] 10 mg PO BID 04/29/17 09/08/19 History Bisoprolol [Zebeta] 5 mg PO DAILY 08/31/17 09/06/19 History Isosorbide Mononitrate ER [Imdur] 30 mg PO HS #30 tab.er.24h 09/01/17 09/08/19 Rx Evolocumab [Repatha Syringe] 140 mg SQ Q14D 12/10/18 09/08/19 History Magnesium Oxide 400 mg PO BID 12/10/18 09/08/19 History Amoxic-Pot Clav 875-125Mg 1 each PO Q12HR #14 tab 12/30/18 09/08/19 Rx [Augmentin 875-125] Ferrous Sulfate [Feosol] 325 mg PO BID #60 tablet 12/30/18 09/08/19 Rx INSULIN ASPART (NovoLOG) [NovoLOG 0 unit SQ ACHS vial 12/30/18 09/08/19 Rx (formulary)] INSULIN ASPART (NovoLOG) [NovoLOG 8 unit SQ AC-TID 09/06/19 09/08/19 History (formulary)] Insulin Detemir (Levemir) [Levemir] 62 unit SQ BID 09/06/19 09/08/19 History Pantoprazole [Protonix] 40 mg PO DAILY 09/06/19 09/08/19 History traMADol HCl [Ultram] 50 mg PO Q6H PRN #21 tab 09/08/19 Rx Ibuprofen [Motrin] 600 mg PO Q6HR PRN #20 tab 05/07/23 Rx Tamsulosin [Flomax] 0.4 mg PO DAILY #14 cap 05/07/23 Rx Ibuprofen [Motrin] 800 mg PO Q6HR #30 tab 05/18/23 Rx Ibuprofen [Motrin] 800 mg PO Q8HR PRN #30 tab 05/18/23 Rx Allergies Allergy/AdvReac Type Severity Reaction Status Date / Time No Known Allergies Allergy Verified 09/06/23 17:59 Physical Exam Vitals: Vital Signs Temp Pulse Pulse Resp BP BP Pulse Ox 09/07/23 03:26 09/06/23 23:27 09/06/23 23:16 100.5 F H 93 30 H 163/72 95 09/06/23 22:39 09/06/23 22:31 98 22 167/72 98 09/06/23 21:58 22 09/06/23 21:50 102.3 F H 09/06/23 20:39 99.6 F 99 26 H 160/73 90 L 09/06/23 19:08 101.9 F H 93 L 09/06/23 17:56 98.9 F 95 24 179/93 95 FiO2 09/07/23 03:26 40 09/06/23 23:27 40 09/06/23 23:16 40 09/06/23 22:39 40 09/06/23 22:31 09/06/23 21:58 11/05/23 21:50 09/06/23 20:39 09/06/23 19:08 09/06/23 17:56 Intake and Output 09/06/23 09/06/23 09/07/23 14:59 22:59 06:59 Other: Voiding Method External Catheter Weight 117.027 kg 117.027 kg Results CBC & Chem 7: 09/06/23 19:06 09/06/23 19:06 Labs: Abnormal Lab Results - Last 24 Hours (Table) 09/06/23 09/06/23 09/06/23 Range/Units 18:51 19:06 19:06 Lymphocytes # 0.6 L (1.0-4.8) k/uL D-Dimer (<0.60) mg/L FEU BUN 25 H (9-20) mg/dL Glucose 120 H (74-99) mg/dL POC Glucose (mg/dL) 131 H (70-110) mg/dL 09/07/23 Range/Units 00:01 Lymphocytes # (1.0-4.8) k/uL D-Dimer 0.90 H (<0.60) mg/L FEU BUN (9-20) mg/dL Glucose (74-99) mg/dL POC Glucose (mg/dL) (70-110) mg/dL Thrombosis Risk Factor Assmnt - Choose All That Apply Any of the Below Risk Factors Present?: Yes Each Factor Represents 1 point: Abnormal pulmonary function (COPD), Obesity (BMI >25) Other Risk Factors: Yes Each Risk Factor Represents 2 Points: Age 61-74 years Other congenital or acquired thrombophilia - If yes, enter type in comment: No Thrombosis Risk Factor Assessment Total Risk Factor Score: 4 Thrombosis Risk Factor Assessment Level: Moderate Risk
[2023-09-07] MEDS: methylPREDNISolone SOD SUCCI 125 MG/2 ML VIAL IV SCH ×4 (03:57→21:34)
[2023-09-07 04:53] LABS: Basophils % (A) 0 %; Eosinophils % (A) 0 %; HCT 37.6 % (39.0-53.0); HGB 12.2 gm/dL (13.0-17.5); Lymphocytes # (A) 0.7 k/uL (1.0-4.8); Lymphocytes % (A) 8 %; MCH 29.1 pg (25.0-35.0); MCHC 32.5 g/dL (31.0-37.0); MCV 89.4 fL (80.0-100.0); Mean Platelet Volume 7.7; Monocytes # (A) 0.2 k/uL (0-1.0); Monocytes % (A) 2 %; Neutrophils # (A) 7.6 k/uL (1.3-7.7); Neutrophils % (A) 89 %; Platelet Count 211 k/uL (150-450); RDW 14.1 % (11.5-15.5); WBC 8.6 k/uL (3.8-10.6)
[2023-09-07 05:32] LABS: African American GFR (CKD) 67 (>60 ml/min/1.73 sqM); Anion Gap 15 mmol/L; Blood Urea Nitrogen 30 mg/dL (9-20); Calcium 8.9 mg/dL (8.4-10.2); Carbon Dioxide 26 mmol/L (22-30); Chloride 96 mmol/L (98-107); Glucose 362 mg/dL (74-99); Non-African American GFR(CKD) 58 (>60 ml/min/1.73 sqM); Potassium 4.1 mmol/L (3.5-5.1); Sodium 137 mmol/L (137-145)
[2023-09-07 06:26] LABS: Glucose,Whole Blood 416 mg/dL (70-110)
--- NOTE | 2023-09-07 06:26 | CT ---
EXAM: CT Angiography Chest With Intravenous Contrast CLINICAL HISTORY: ITS.REASON CT Reason: r/o PE, elevated dimer TECHNIQUE: Axial computed tomographic angiography images of the chest with intravenous contrast. CTDI is 33.68 mGy and DLP is 938.2 mGy-cm. This CT exam was performed using one or more of the following dose reduction techniques: automated exposure control, adjustment of the mA and/or kV according to patient size, and/or use of iterative reconstruction technique. MIP reconstructed images were created and reviewed. COMPARISON: No relevant prior studies available. FINDINGS: Pulmonary arteries: Motion artifact markedly limits evaluation. Despite this, no evidence of pulmonary embolism within the pulmonary outflow tract or immediate proximal branches. Aorta: Atherosclerotic disease. No thoracic aortic aneurysm. Lungs: Mild dependent airspace disease in the lungs. No mass. Pleural space: Unremarkable. No significant effusion. No pneumothorax. Heart: Coronary artery calcifications. Pericardial effusion measuring up to 1.1 cm. No evidence of RV dysfunction. Bones/joints: Degenerative changes in the spine. Flowing osteophyte formations in the spine compatible with diffuse idiopathic skeletal hyperostosis (DISH). No acute fracture. No dislocation. Soft tissues: Gynecomastia. Lymph nodes: Unremarkable. No enlarged lymph nodes. Gallbladder and bile ducts: Cholelithiasis. No gross findings to suggest cholecystitis. IMPRESSION: 1. Motion artifact markedly limits evaluation. Despite this, no evidence of pulmonary embolism within the pulmonary outflow tract or immediate proximal branches. 2. Pericardial effusion measuring up to 1.1 cm. 3. No other acute findings. 4. Incidental findings as described.
[2023-09-07] MEDS: INSULIN DETEMIR (LEVEMIR) 100 UNIT/ML SYR SQ SCH ×2 (06:56→21:34)
[2023-09-07] MEDS: INSULIN ASPART (NovoLOG) 100 UNIT/ML VIAL SQ SCH ×6 (06:56→21:34)
[2023-09-07] MEDS ORDERED: IPRATROPIUM-ALBUTEROL 3 ML NEB INHALATION SCH (08:00)
[2023-09-07] MEDS ORDERED: ALBUTEROL HFA INHALER INHALATION SCH (08:00)
[2023-09-07] MEDS: ENOXAPARIN 30 MG/0.3 ML SYRINGE SQ SCH ×2 (08:15→20:17)
[2023-09-07] MEDS: SYMBICORT 160-4.5 MCG INHALER INHALATION SCH ×2 (09:03→20:49)
--- NOTE | 2023-09-07 10:11 | P.PN ---
Subjective Progress Note Date: 09/07/23 The patient reports that his breathing has improved today relative to admission. He continues to have wheezing. He has been on BiPAP since admission. Gen: awake, alert HEENT: normocephalic, atraumatic, good hearing acuity, moist mucous membranes Resp: good air exchange, breathing comfortably with no accessory muscle use CVS: good distal perfusion x 4, GI: soft, NTTP, ND : no SPT, no CVAT, harley catheter not present MSK: no pitting edema, no clubbing Neuro: non-focal, moving all extremities Psych: cooperative, euthymic mood Hospital course: Patient is a 72-year-old male with a PMH of COPD, paroxysmal A. fib (not on anticoagulation, unknown reason), CAD status post multiple stents, type II DM, hypertension, hyperlipidemia, BPH, and DARLIN on CPAP presented to the emergency room with complaints of URI like symptoms. In the emergency room a chest x-ray revealed findings of pulmonary venous congestion. EKG revealed sinus rhythm at [address]/T-wave changes noted as reviewed by me. Laboratory evaluation revealed a proBNP 258, d-dimer of 0.9, BUN 25, with troponin 0.021. Patient was admitted to cardiac selective with rescue BiPAP. He was started on Solu-Medrol, Symbicort, albuterol nebulizers. Pulmonology consult was obtained and their recommendations appreciated. CT angiography was obtained and while there is motion artifact, this did not show any overt evidence of heart failure, pulmonary embolism. Therefore, it was assessed that vascular congestion seen on chest x-ray was likely due to moderate inspiratory effort. Furthermore, BNP was not elevated at 258. Patient was given 1 dose of Lasix of 40 mg IV, and echocardiogram was ordered. Assessment/plan: Acute hypoxic respiratory failure Acute COPD exacerbation Covid 19 Elevated d-dimer -Patient status was escalated inpatient after requiring BiPAP -Pulmonology consult is appreciated, notably they changed patient's home Advair to Symbicort -Continue albuterol inhaler when necessary -Add DuoNeb's when necessary -Continue Solu-Medrol 60 mg IV every 6 hours -No indication for antibiotics at this time, pro calcitonin is reviewed and negative at 0.06 -Echocardiogram is ordered and pending Type 2 diabetes with hyperglycemia -Patient is on Levemir 80 mg subcu twice a day for long-acting -Patient is on aspart before meals for short acting -We have added sliding scale insulin -Continue to check sugars to monitor for toxicity Paroxysmal A. fib CAD Hypertension Hyperlipidemia BPH -Home medications abdomen reviewed and reconciled Data Review: CBC demonstrates hemoglobin of 12.2. Basic metabolic panel shows chloride of 96, BUN of 30, creatinine of 1.24. Sugars have elevated to 416 as of latest check. DVT prophylaxis: Lovenox subcu The patient is admitted with an anticipated greater than 2 midnight stay for evaluation of COVID pneumonia CODE STATUS: Full Code Discussed with: Patient Anticipated discharge place: Home Objective - Vital Signs Vital signs: Vital Signs Temp 97.7 F 09/07/23 06:41 Pulse 80 09/07/23 06:41 Resp 21 09/07/23 06:41 BP 145/72 09/07/23 06:41 Pulse Ox 94 L 09/07/23 06:41 FiO2 40 09/07/23 09:02 Intake & Output 09/06/23 09/07/23 09/07/23 18:59 06:59 18:59 Intake Total 540 Output Total 700 Balance -160 Weight 117.027 kg 117.027 kg Intake: Oral 540 Output: Urine 700 Other: Voiding Method External Catheter - Labs CBC & Chem 7: 09/07/23 04:25 09/07/23 04:25 Labs: Abnormal Lab Results - Last 24 Hours (Table) 09/06/23 09/06/23 09/06/23 Range/Units 18:51 19:06 19:06 RBC (4.30-5.90) m/uL Hgb (13.0-17.5) gm/dL Hct (39.0-53.0) % Lymphocytes # 0.6 L (1.0-4.8) k/uL D-Dimer (<0.60) mg/L FEU Chloride (98-107) mmol/L BUN 25 H (9-20) mg/dL Glucose 120 H (74-99) mg/dL POC Glucose (mg/dL) 131 H (70-110) mg/dL Hemoglobin A1c (<=6.0) % SARS-CoV-2 (PCR) (Not Detectd) 09/07/23 09/07/23 09/07/23 Range/Units 00:01 04:25 04:25 RBC 4.20 L (4.30-5.90) m/uL Hgb 12.2 L (13.0-17.5) gm/dL Hct 37.6 L (39.0-53.0) % Lymphocytes # 0.7 L (1.0-4.8) k/uL D-Dimer 0.90 H (<0.60) mg/L FEU Chloride 96 L (98-107) mmol/L BUN 30 H (9-20) mg/dL Glucose 362 H (74-99) mg/dL POC Glucose (mg/dL) (70-110) mg/dL Hemoglobin A1c (<=6.0) % SARS-CoV-2 (PCR) (Not Detectd) 09/07/23 09/07/23 09/07/23 Range/Units 04:25 06:23 08:15 RBC (4.30-5.90) m/uL Hgb (13.0-17.5) gm/dL Hct (39.0-53.0) % Lymphocytes # (1.0-4.8) k/uL D-Dimer (<0.60) mg/L FEU Chloride (98-107) mmol/L BUN (9-20) mg/dL Glucose (74-99) mg/dL POC Glucose (mg/dL) 416 H (70-110) mg/dL Hemoglobin A1c 7.9 H (<=6.0) % SARS-CoV-2 (PCR) Detected A (Not Detectd)
[2023-09-07] MEDS: PSYLLIUM HUSK 100% 6 GM PACKET PO SCH (11:37)
[2023-09-07] MEDS: FINASTERIDE 5 MG TAB PO SCH (11:41)
[2023-09-07] MEDS: TICAGRELOR 90 MG TAB PO SCH ×2 (11:41→20:19)
[2023-09-07] MEDS: amLODIPine 10 MG TAB PO SCH (11:41)
[2023-09-07] MEDS: FERROUS SULFATE 325 MG TAB PO SCH ×2 (11:41→20:18)
[2023-09-07] MEDS: ESCITALOPRAM 20 MG TAB PO SCH (11:41)
--- NOTE | 2023-09-07 11:43 | CA ---
Transthoracic Echo Report Name: Boone Rudolph Age: 72 Gender: M : 1950 Exam Date: 09/07/2023 09:36 Exam Location: [facility] Ht (in): 70 Wt (lb): 258 Ordering Physician: Salvador Woodard MD Attending/Referring Phys: Quencher Operator Flory Bob [facility] Procedure CPT: Indications: r/o chf Cardiac Hx: Technical Quality: Very technically difficult study Contrast 1: Definity Total Dose (mL): 5 Contrast 2: Total Dose (mL): MEASUREMENTS (Male / Female) Normal Values 2D ECHO LV Diastolic Diameter PLAX 4.2 cm 4.2 - 5.9 / 3.9 - 5.3 cm LV Systolic Diameter PLAX 2.9 cm IVS Diastolic Thickness 1.1 cm 0.6 - 1.0 / 0.6 - 0.9 cm LVPW Diastolic Thickness 1.3 cm 0.6 - 1.0 / 0.6 - 0.9 cm LV Relative Wall Thickness 0.6 DOPPLER LV E' Lateral Velocity 9.8 cm/s LV E' Septal Velocity 8.4 cm/s FINDINGS Left Ventricle Mildly increased left ventricular wall thickness. Left ventricular cavity size normal. Left ventricular ejection fraction is estimated at 55-60 %. Right Ventricle Right Atrium Left Atrium Mitral Valve Mitral valve not well visualized. Aortic Valve Aortic valve not well visualized. Tricuspid Valve Tricuspid valve not well visualized. Pulmonic Valve Pulmonic valve not well visualized. Pericardium Small pericardial effusion. Aorta CONCLUSIONS Limited echo, patient is COVID+ Definity ECHO contrast used for improved visualization of the endocardial borders (inadequate visualization of two or more contiguous segments). Technically difficult study. Normal left ventricular size and systolic function Previewed by: Dr. Shantel Forrest MD (Electronically Signed) Final Date: 07 September 2023 11:43
[2023-09-07 12:10] LABS: Glucose,Whole Blood 423 mg/dL (70-110)
[2023-09-07] MEDS ORDERED: ALBUTEROL HFA INHALER INHALATION PRN (15:24)
[2023-09-07] MEDS: BENZOCAINE/MENTHOL LOZENG 1 EACH LOZENGE MUCOUS MEM PRN ×2 (16:20→20:18)
[2023-09-07 16:52] LABS: Glucose,Whole Blood 389 mg/dL (70-110)
[2023-09-07] MEDS: LATANOPROST 0.005% OPHTH DROPS 2.5 ML BTL BOTH EYES SCH (20:17)
[2023-09-07] MEDS: MONTELUKAST 10 MG TAB PO SCH (20:18)
[2023-09-07] MEDS: TAMSULOSIN 0.4 MG CAP.ER.24H PO SCH (20:19)
[2023-09-07] MEDS: ARIPiprazole 10 MG TAB PO SCH (20:19)
[2023-09-07] MEDS: ATORVASTATIN 20 MG TAB PO SCH (20:19)
[2023-09-07] MEDS: lisinopriL 20 MG TAB PO SCH (20:19)
[2023-09-07 20:36] LABS: Glucose,Whole Blood 447 mg/dL (70-110)
[2023-09-07] MEDS ORDERED: ISOSORBIDE MONONITRATE ER 30 MG TAB.ER.24H PO SCH (21:00)
[2023-09-08 02:16] LABS: Glucose,Whole Blood 405 mg/dL (70-110)
[2023-09-08] MEDS: methylPREDNISolone SOD SUCCI 125 MG/2 ML VIAL IV SCH ×4 (03:34→20:19)
[2023-09-08 06:15] LABS: Glucose,Whole Blood 440 mg/dL (70-110)
[2023-09-08] MEDS: LEVOTHYROXINE 25 MCG TAB PO SCH (06:44)
[2023-09-08] MEDS: INSULIN DETEMIR (LEVEMIR) 100 UNIT/ML SYR SQ SCH ×2 (06:44→20:20)
[2023-09-08] MEDS: INSULIN ASPART (NovoLOG) 100 UNIT/ML VIAL SQ SCH ×7 (07:01→20:20)
[2023-09-08] MEDS: PSYLLIUM HUSK 100% 6 GM PACKET PO SCH (07:53)
[2023-09-08] MEDS: FINASTERIDE 5 MG TAB PO SCH (07:53)
[2023-09-08] MEDS: amLODIPine 10 MG TAB PO SCH (07:54)
[2023-09-08] MEDS: ESCITALOPRAM 20 MG TAB PO SCH (07:54)
[2023-09-08] MEDS: lisinopriL 20 MG TAB PO SCH (07:54)
[2023-09-08] MEDS: FERROUS SULFATE 325 MG TAB PO SCH ×2 (07:54→20:18)
[2023-09-08] MEDS: BENZOCAINE/MENTHOL LOZENG 1 EACH LOZENGE MUCOUS MEM PRN ×2 (07:54→20:19)
[2023-09-08] MEDS: TICAGRELOR 90 MG TAB PO SCH ×2 (07:54→20:18)
[2023-09-08] MEDS: ENOXAPARIN 30 MG/0.3 ML SYRINGE SQ SCH ×2 (07:54→20:18)
[2023-09-08] MEDS: SYMBICORT 160-4.5 MCG INHALER INHALATION SCH ×2 (09:27→21:06)
[2023-09-08 09:51] LABS: Basophils % (A) 0 %; Eosinophils % (A) 0 %; HCT 38.9 % (39.0-53.0); HGB 12.7 gm/dL (13.0-17.5); Lymphocytes # (A) 0.6 k/uL (1.0-4.8); Lymphocytes % (A) 4 %; MCH 29.6 pg (25.0-35.0); MCHC 32.7 g/dL (31.0-37.0); MCV 90.5 fL (80.0-100.0); Mean Platelet Volume 7.3; Monocytes # (A) 0.8 k/uL (0-1.0); Monocytes % (A) 5 %; Neutrophils # (A) 14.5 k/uL (1.3-7.7); Neutrophils % (A) 91 %; Platelet Count 286 k/uL (150-450); RBC 4.29 m/uL (4.30-5.90)
[2023-09-08 09:58] LABS: African American GFR (CKD) 59 (>60 ml/min/1.73 sqM); Anion Gap 16 mmol/L; Blood Urea Nitrogen 49 mg/dL (9-20); Calcium 8.8 mg/dL (8.4-10.2); Carbon Dioxide 22 mmol/L (22-30); Chloride 98 mmol/L (98-107); Glucose 447 mg/dL (74-99); Magnesium 1.6 mg/dL (1.6-2.3); Non-African American GFR(CKD) 51 (>60 ml/min/1.73 sqM); Potassium 4.1 mmol/L (3.5-5.1); Sodium 136 mmol/L (137-145)
--- NOTE | 2023-09-08 11:08 | CDI ---
Documentation Clarification Form Date: From: Elva Marroquin Phone: [phone] Admit Date: 09/06/2023 09:21:00 PM Patient Name: Boone Rudolph Visit Number: [id number] Discharge Date: ATTENTION: The Clinical Documentation Specialists (CDI) and [facility] Coding Staff appreciate your assistance in clarifying documentation. Please respond to the clarification below the line at the bottom and electronically sign. The CDI & [facility] Coding staff will review the response and follow-up if needed. Please note: Queries are made part of the Legal Health Record. If you have any questions, please contact the author of this message via ITS. Dr. Miesha Baum The patient has SIRS criteria documented in the chart with a known infection. Based on this information and the findings below, is there an additional diagnosis that is clinically appropriate for this patient? History/Risk Factors: "72-year-old male with a PMH of COPD, A. fib (not on anticoagulation, unknown reason), CAD status post multiple stents, type II DM, hypertension, hyperlipidemia, BPH, and DARLIN on CPAP presents to the emergency room with complaints of URI like symptoms. " - Per H&P on 09/06 Clinical Indicators: "developed gradually worsening nonproductive cough, fever, chills, sore throat, and runny nose." "chest x-ray revealed findings of pulmonary venous congestion" - Per H&P on 09/06 "tested positive for coronavirus, but was not thought to have a coronavirus associated pneumonia" "moderately severe to severe COPD" "temperature elevation of 102.3" - Per Pulmonology Consult note on 09/07 WBC: 09/06 - 8.2, 09/07 - 8.6, 09/08 - 16.0 Lactic acid: 06/06 - 1.2 Procalcitonin: 09/07 - 0.06 Vitals signs: 09/06 - Temp. 102.3, RR 26, HR 99, O2 90%, BP 160/73 09/07 - Temp. 97.4, RR 23, HR 89, O2 92% on Bipap, BP 154/68 09/08 - Temp. 98.3, RR 22, HR 100, O2 93% on 6L NC, BP 148/72 Treatment: Per Progress Note on 09/07 "-Patient status was escalated inpatient after requiring BiPAP -Pulmonology consult is appreciated, notably they changed patient's home Advair to Symbicort -Continue albuterol inhaler when necessary -Add DuoNeb's when necessary -Continue Solu-Medrol 60 mg IV every 6 hours" Is there an additional diagnosis that is clinically appropriate for this patient? [ ] Sepsis, present on admission [ ] Sepsis, developed during stay, not present on admission [x] Sepsis ruled out [ ] SIRS, without underlying infectious process [ ] Other, please specify [ ] Unable to determine SIRS Criteria: 2 or more of the following may indicate SIRS Temperature < 96.8F (36C) or > 101.0F (38.3C) Heart Rate > 90 bpm Respiratory Rate > 20 breaths/min or PaCO2 < 32 mmHg White Blood Cell Count > 12,000 or < 4,000 cells/mm3 or > 10% bands MTDD
[2023-09-08 11:29] LABS: Glucose,Whole Blood 436 mg/dL (70-110)
--- NOTE | 2023-09-08 11:58 | P.PN ---
Subjective Progress Note Date: 09/08/23 Principal diagnosis: Shortness of breath. I am seeing this patient in new consultation today 09/07/2023 after the patient started to have URI-like symptoms two days ago and tested positive for COVID-19 outpatient. Patient is a 72-year-old white male with past medical history si gnificant for COPD with an FEV1 53% of predicted, obstructive sleep apnea with home CPAP, hyperlipidemia, hypertension, diabetes mellitus, coronary artery disease with multiple previous stents, among other things. He does follow with Dr. Au in the pulmonary office for managment of his moderate COPD and DARLIN. Patient reportedly has received his COVID-19 vaccination and was recently boosted. Starting two days ago, the patient reports symptoms of rhinorrhea, sore throat, nonproductive cough, fevers, chills, and shortness of breath that worsened overnight. Denies any nausea, vomiting, diarrhea. Patient was reportedly started on Paxlovid by an urgent care clinic. On arrival to the emergency room, yesterday evening, he was found to be hypoxic, and placed on BiPAP with settings 12/6 and FiO2 40%. Chest x-ray showed cardiomegaly with mild pulmonary vascular congestion. No focal infiltrates. CBC on arrival was unremarkable. No leukocytosis. BMP was also unremarkable. NT proBNP not pa rticularly elevated at 258. EKG shows normal sinus rhythm without any obvious ischemic changes. Patient denies any chest pain, heart palpitations, orthopnea, lower extremity edema. Patient is currently sitting up in bed, on BiPAP with above-mentioned settings, in no acute distress. No signs of hypercapnic encephalopathy. He is achieving tidal volumes of around 350 and his respiratory rate is in the mid 20s. He continues to spike intermittent fevers with a T-max of 102.3F. Vital signs are otherwise stable. Patient was started on a combination of albuterol inhaler, Symbicort inhaler, IV Solu-Medrol. He is being monitored on the cardiac stepdown unit. Progress note dated 09/08/2023. 72-year-old male with history of coronavirus infection, and moderately severe COPD, is admitted, with complaints of shortness of breath, and cough, as well as chest congestion. The patient also had rhinorrhea, sore throat, fever, and chills. Currently, he is resting comfortably in room 356. He is currently on 6 L nasal cannula, or, BiPAP, at 12/6, and 40%. He's not receiving any IV fluids. He is much more awake and alert today, and does admit to feeling that her. White count 16, he will 12.7, hematocrit 38.9, and platelet count was normal. Sodium 136, potassium 4.1, chlorides 98, CO2 22, anion gap 16, BUN 49, and creatinine 1.38. His blood sugar is 436. Magnesium 1.6, and calcium 8.8. Objective - Vital Signs Vital signs: Vital Signs Temp 98.3 F 09/08/23 08:00 Pulse 100 09/08/23 08:00 Resp 22 09/08/23 08:00 BP 148/72 09/08/23 08:00 Pulse Ox 93 L 09/08/23 08:00 FiO2 40 09/08/23 03:37 Intake & Output 09/07/23 09/08/23 09/08/23 18:59 06:59 18:59 Intake Total 1260 540 420 Output Total 1750 1100 600 Balance -490 -560 -180 Intake: Oral 1260 540 420 Output: Urine 1750 1100 600 Other: Voiding Method External Catheter External Catheter External Catheter # Voids 0 # Bowel Movements 0 1 - Exam No acute distress, oriented 3. No conversational dyspnea or use of accessory muscles. Currently on 6 L nasal cannula. HEENT examination is grossly unremarkable. Mucous membranes are moist. No oral lesions. Neck supple. Full range of motion. No adenopathy thyromegaly or neck vein di stention. Cardiovascular examination reveals regular rhythm rate. S1-S2 normal. No S3 or S4. No discernible murmur noted. Heart sounds are distant. Heart rate 100 bpm. Lungs reveal scattered rhonchi, and expiratory wheezes. No crackles. Breath sounds equal bilaterally. Saturations are in the mid 90s. Abdomen soft bowel sounds are heard. No masses or tenderness. Extremities are intact. No cyanosis clubbing or edema. Skin is without rash or lesion. Neurologic examination is brief but nonfocal. - Labs CBC & Chem 7: 09/08/23 09:19 09/08/23 09:19 Labs: Abnormal Lab Results - Last 24 Hours (Table) 09/07/23 09/07/23 09/07/23 Range/Units 08:15 12:05 16:50 WBC (3.8-10.6) k/uL RBC (4.30-5.90) m/uL Hgb (13.0-17.5) gm/dL Hct (39.0-53.0) % Neutrophils # (1.3-7.7) k/uL Lymphocytes # (1.0-4.8) k/uL Sodium (137-145) mmol/L BUN (9-20) mg/dL Creatinine (0.66-1.25) mg/dL Glucose (74-99) mg/dL POC Glucose (mg/dL) 423 H 389 H (70-110) mg/dL SARS-CoV-2 (PCR) Detected A (Not Detectd) 09/07/23 09/08/23 09/08/23 Range/Units 20:35 02:04 06:14 WBC (3.8-10.6) k/uL RBC (4.30-5.90) m/uL Hgb (13.0-17.5) gm/dL Hct (39.0-53.0) % Neutrophils # (1.3-7.7) k/uL Lymphocytes # (1.0-4.8) k/uL Sodium (137-145) mmol/L BUN (9-20) mg/dL Creatinine (0.66-1.25) mg/dL Glucose (74-99) mg/dL POC Glucose (mg/dL) 447 H 405 H 440 H (70-110) mg/dL SARS-CoV-2 (PCR) (Not Detectd) 09/08/23 09/08/23 09/08/23 Range/Units 09:19 09:19 11:28 WBC 16.0 H (3.8-10.6) k/uL RBC 4.29 L (4.30-5.90) m/uL Hgb 12.7 L (13.0-17.5) gm/dL Hct 38.9 L (39.0-53.0) % Neutrophils # 14.5 H (1.3-7.7) k/uL Lymphocytes # 0.6 L (1.0-4.8) k/uL Sodium 136 L (137-145) mmol/L BUN 49 H (9-20) mg/dL Creatinine 1.38 H (0.66-1.25) mg/dL Glucose 447 H (74-99) mg/dL POC Glucose (mg/dL) 436 H (70-110) mg/dL SARS-CoV-2 (PCR) (Not Detectd) Assessment and Plan Assessment: Acute COPD exacerbation, secondary to acute COVID-19 infection. Acute COVID-19 infection. Moderately severe COPD, with an FEV1 that is 53% of predicted. Acute hypoxemic respiratory failure, secondary to above. Obstructive sleep apnea, on home CPAP. History of paroxysmal atrial fibrillation. Coronary artery disease with previous coronary stents Insulin-dependent diabetes mellitus. Hyperlipidemia. Benign essential hypertension. Obesity with a BMI of 37 kg/m. Former tobacco smoker. Plan: Plan dated 09/08/2023. The patient is seen today in room 356. He is much more awake and alert. He did use BiPAP last night at 12/6, and 40%. Currently, he's on 6 L nasal cannula. The patient is not having any conversational dyspnea, or use of accessory muscles. Labs, x-rays, and medications are reviewed. The patient continues on updrafts, and Solu-Medrol. We will continue to follow and make recommendations along the way. Prognosis is guarded. Time with Patient: Less than 30
--- NOTE | 2023-09-08 15:45 | P.PN ---
Subjective Progress Note Date: 09/08/23 Patient is a 72-year-old male with a PMH of COPD, paroxysmal A. fib (not on anticoagulation, unknown reason), CAD status post multiple stents, type II DM, hypertension, hyperlipidemia, BPH, and DARLIN on CPAP presented to the emergency room with complaints of URI like symptoms. In the emergency room a chest x-ray revealed findings of pulmonary venous congestion. EKG revealed sinus rhythm at [address]/T-wave changes noted as reviewed by me. Laboratory evaluation revealed a proBNP 258, d-dimer of 0.9, BUN 25, with troponin 0.021. Patient was admitted to cardiac selective with rescue BiPAP. He was started on Solu-Medrol, Symbicort, albuterol nebulizers. Pulmonology consult was obtained and their recommendations appreciated. CT angiography was obtained and while there is motion artifact, this did not show any overt evidence of heart failure, pulmonary embolism. Therefore, it was assessed that vascular congestion seen on chest x-ray was likely due to moderate inspiratory effort. Furthermore, BNP was not elevated at 258. Patient was given 1 dose of Lasix of 40 mg IV, and echocardiogram was ordered. He was started on BiPAP QHS and supplemental O2 to maintain O2 saturation > 92%. Procal was negative, no antibiotics were started. 09/08 Patient was seen and examined. Reports continued shortness of breath. Currently on 6L NC. CBC shows WBC 16, Hg 12.7. BMP Na 136, BUN 49, Cr 1.38, glucose 447. Mag 1.6. General: non toxic, no distress, appears at stated age Derm: warm, dry Head: atraumatic, normocephalic, symmetric Eyes: EOMI, no lid lag, anicteric sclera Cardiovascular: good distal perfusion in all 4 extremities. Lungs: breathing comfortably on 6L, no accessory muscle use Ext: no gross muscle atrophy, no edema, no contractures Neuro: no focal neuro deficits Psych: Alert, oriented, appropriate affect Acute hypoxic respiratory failure Acute COPD exacerbation Covid 19 Type 2 diabetes with hyperglycemia Elevated d-dimer Chronic conditions: A-Fib, CAD, HTN, HLD, BPH Based on my assessment of this patient, this patient meets a high complexity level of care. Patient has an acute diagnosis of AHRF that poses a threat to life or bodily function. COVID +. Blood glucose persistent in the 400s. Acute hypoxic respiratory failure: Supplemental O2 to maintain O2 saturation > 92%. Solumedrol 60 mg IV Q6H. Telemetry monitoring. Acute COPD exacerbation: Restart Symbicort. Albuterol 2 puff INH Q2H PRN for SOB/wheezing. COVID 19: Steroids as above. Airborn precautions. Type 2 diabetes with hyperglycemia Leukocytosis: Related to steroid use. KIRK: Hold Lisinopril. Repeat BMP tomorrow morning. Small pleural effusion: No tamponade on Echo. Elevated d-dimer: Related to COVID 19. I have reviewed the following citrix consultant notes: Pulmonology note. I have reviewed the results of the following tests: CBC, BMP, Mag. I have ordered the following tests: CBC, BMP. I have discussed the care of this patient with the following independent historian: I have independently interpreted the following test below: I have discussed the management of this patient with the following physician: Objective - Vital Signs Vital signs: Vital Signs Temp 97.9 F 09/08/23 12:00 Pulse 94 09/08/23 12:00 Resp 22 09/08/23 12:00 BP 160/67 09/08/23 12:00 Pulse Ox 90 L 09/08/23 12:00 FiO2 40 09/08/23 03:37 Intake & Output 09/07/23 09/08/23 09/08/23 18:59 06:59 18:59 Intake Total 1260 540 600 Output Total 1750 1100 600 Balance -490 -560 0 Intake: Oral 1260 540 600 Output: Urine 1750 1100 600 Other: Voiding Method External Catheter External Catheter External Catheter # Voids 0 # Bowel Movements 0 1 - Labs CBC & Chem 7: 09/08/23 09:19 09/08/23 09:19 Labs: Abnormal Lab Results - Last 24 Hours (Table) 09/07/23 09/07/23 09/07/23 Range/Units 08:15 16:50 20:35 WBC (3.8-10.6) k/uL RBC (4.30-5.90) m/uL Hgb (13.0-17.5) gm/dL Hct (39.0-53.0) % Neutrophils # (1.3-7.7) k/uL Lymphocytes # (1.0-4.8) k/uL Sodium (137-145) mmol/L BUN (9-20) mg/dL Creatinine (0.66-1.25) mg/dL Glucose (74-99) mg/dL POC Glucose (mg/dL) 389 H 447 H (70-110) mg/dL SARS-CoV-2 (PCR) Detected A (Not Detectd) 09/08/23 09/08/23 09/08/23 Range/Units 02:04 06:14 09:19 WBC 16.0 H (3.8-10.6) k/uL RBC 4.29 L (4.30-5.90) m/uL Hgb 12.7 L (13.0-17.5) gm/dL Hct 38.9 L (39.0-53.0) % Neutrophils # 14.5 H (1.3-7.7) k/uL Lymphocytes # 0.6 L (1.0-4.8) k/uL Sodium (137-145) mmol/L BUN (9-20) mg/dL Creatinine (0.66-1.25) mg/dL Glucose (74-99) mg/dL POC Glucose (mg/dL) 405 H 440 H (70-110) mg/dL SARS-CoV-2 (PCR) (Not Detectd) 09/08/23 09/08/23 Range/Units 09:19 11:28 WBC (3.8-10.6) k/uL RBC (4.30-5.90) m/uL Hgb (13.0-17.5) gm/dL Hct (39.0-53.0) % Neutrophils # (1.3-7.7) k/uL Lymphocytes # (1.0-4.8) k/uL Sodium 136 L (137-145) mmol/L BUN 49 H (9-20) mg/dL Creatinine 1.38 H (0.66-1.25) mg/dL Glucose 447 H (74-99) mg/dL POC Glucose (mg/dL) 436 H (70-110) mg/dL SARS-CoV-2 (PCR) (Not Detectd)
[2023-09-08 16:40] LABS: Glucose,Whole Blood 456 mg/dL (70-110)
[2023-09-08 20:15] LABS: Glucose,Whole Blood 416 mg/dL (70-110)
[2023-09-08] MEDS: ATORVASTATIN 20 MG TAB PO SCH (20:18)
[2023-09-08] MEDS: MONTELUKAST 10 MG TAB PO SCH (20:18)
[2023-09-08] MEDS: ARIPiprazole 10 MG TAB PO SCH (20:19)
[2023-09-08] MEDS: ISOSORBIDE MONONITRATE ER 60 MG TAB.ER.24H PO SCH (20:19)
[2023-09-08] MEDS: TAMSULOSIN 0.4 MG CAP.ER.24H PO SCH (20:19)
[2023-09-08] MEDS: LATANOPROST 0.005% OPHTH DROPS 2.5 ML BTL BOTH EYES SCH (20:21)
[2023-09-09] MEDS: methylPREDNISolone SOD SUCCI 125 MG/2 ML VIAL IV SCH ×4 (04:00→19:58)
[2023-09-09 05:54] LABS: Glucose,Whole Blood 382 mg/dL (70-110)
[2023-09-09] MEDS: INSULIN ASPART (NovoLOG) 100 UNIT/ML VIAL SQ SCH ×7 (06:08→20:48)
[2023-09-09] MEDS: LEVOTHYROXINE 25 MCG TAB PO SCH (06:08)
[2023-09-09] MEDS: INSULIN DETEMIR (LEVEMIR) 100 UNIT/ML SYR SQ SCH ×2 (06:09→20:47)
[2023-09-09] MEDS: BENZOCAINE/MENTHOL LOZENG 1 EACH LOZENGE MUCOUS MEM PRN ×2 (06:12→19:57)
[2023-09-09] MEDS: SYMBICORT 160-4.5 MCG INHALER INHALATION SCH ×2 (08:26→21:46)
[2023-09-09 08:49] LABS: HCT 37.3 % (39.0-53.0); HGB 12.6 gm/dL (13.0-17.5); MCH 30.3 pg (25.0-35.0); MCHC 33.8 g/dL (31.0-37.0); MCV 89.6 fL (80.0-100.0); Mean Platelet Volume 7.4; Platelet Count 310 k/uL (150-450); RBC 4.16 m/uL (4.30-5.90); RDW 13.9 % (11.5-15.5); WBC 17.5 k/uL (3.8-10.6)
[2023-09-09 08:58] LABS: African American GFR (CKD) 59 (>60 ml/min/1.73 sqM); Anion Gap 14 mmol/L; Blood Urea Nitrogen 50 mg/dL (9-20); Calcium 9.1 mg/dL (8.4-10.2); Carbon Dioxide 25 mmol/L (22-30); Chloride 97 mmol/L (98-107); Glucose 365 mg/dL (74-99); Non-African American GFR(CKD) 51 (>60 ml/min/1.73 sqM); Sodium 136 mmol/L (137-145)
[2023-09-09] MEDS: FINASTERIDE 5 MG TAB PO SCH (09:49)
[2023-09-09] MEDS: PSYLLIUM HUSK 100% 6 GM PACKET PO SCH (09:49)
[2023-09-09] MEDS: ESCITALOPRAM 20 MG TAB PO SCH (09:49)
[2023-09-09] MEDS: TICAGRELOR 90 MG TAB PO SCH ×2 (09:49→19:57)
[2023-09-09] MEDS: amLODIPine 10 MG TAB PO SCH (09:49)
[2023-09-09] MEDS: FERROUS SULFATE 325 MG TAB PO SCH ×2 (09:49→19:57)
[2023-09-09] MEDS: ENOXAPARIN 30 MG/0.3 ML SYRINGE SQ SCH ×2 (09:49→19:57)
--- NOTE | 2023-09-09 10:19 | P.PN ---
Subjective Progress Note Date: 09/09/23 Patient is a 72-year-old male with a PMH of COPD, paroxysmal A. fib (not on anticoagulation, unknown reason), CAD status post multiple stents, type II DM, hypertension, hyperlipidemia, BPH, and DARLIN on CPAP presented to the emergency room with complaints of URI like symptoms. In the emergency room a chest x-ray revealed findings of pulmonary venous congestion. EKG revealed sinus rhythm at [address]/T-wave changes noted as reviewed by me. Laboratory evaluation revealed a proBNP 258, d-dimer of 0.9, BUN 25, with troponin 0.021. Patient was admitted to cardiac selective with rescue BiPAP. He was started on Solu-Medrol, Symbicort, albuterol nebulizers. Pulmonology consult was obtained and their recommendations appreciated. CT angiography was obtained and while there is motion artifact, this did not show any overt evidence of heart failure, pulmonary embolism. Therefore, it was assessed that vascular congestion seen on chest x-ray was likely due to moderate inspiratory effort. Furthermore, BNP was not elevated at 258. Patient was given 1 dose of Lasix of 40 mg IV, and echocardiogram was ordered. He was started on BiPAP QHS and supplemental O2 to maintain O2 saturation > 92%. Procal was negative, no antibiotics were started. 09/08 Patient was seen and examined. Reports continued shortness of breath. Currently on 6L NC. CBC shows WBC 16, Hg 12.7. BMP Na 136, BUN 49, Cr 1.38, glucose 447. Mag 1.6. 09/09 Patient was seen and examined. Currently on 6L. Reports some lighthe adedness when standing up. CBC shows WBC 17.5, Hg 12.6. BMP Na 136, Cl 97, BUN 50, Cr 1.38, glucose 365. General: non toxic, no distress, appears at stated age Derm: warm, dry Head: atraumatic, normocephalic, symmetric Eyes: EOMI, no lid lag, anicteric sclera Cardiovascular: good distal perfusion in all 4 extremities. Lungs: breathing comfortably on 6L, no accessory muscle use Ext: no gross muscle atrophy, no edema, no contractures Neuro: no focal neuro deficits Psych: Alert, oriented, appropriate affect Acute hypoxic respiratory failure Acute COPD exacerbation Covid 19 Type 2 diabetes with hyperglycemia Leukocytosis KIRK Elevated d-dimer Chronic conditions: A-Fib, CAD, HTN, HLD, BPH Based on my assessment of this patient, this patient meets a high complexity level of care. Patient has an acute diagnosis of AHRF that poses a threat to life or bodily function. COVID +. Blood glucose persistent in the 400s. Acute hypoxic respiratory failure: Supplemental O2 to maintain O2 saturation > 92%. Solumedrol 60 mg IV Q6H. Telemetry monitoring. Acute COPD exacerbation: Restart Symbicort. Albuterol 2 puff INH Q2H PRN for SOB/wheezing. COVID 19: Steroids as above. Airborn precautions. Type 2 diabetes with hyperglycemia: Increased Novolog to 30 TID with Levemir 80 BID. Continue high dose SS. Accuchecks ACHS. Leukocytosis: Related to steroid use. KIRK: Hold Lisinopril. Start NS at 75 cc/hr. Repeat BMP tomorrow morning. Small pleural effusion: No tamponade on Echo. Elevated d-dimer: Related to COVID 19. I have reviewed the following packaging sales consultant notes: Pulmonology note. I have reviewed the results of the following tests: CBC, BMP, POC glucose I have ordered the following tests: CBC, BMP I have discussed the care of this patient with the following independent historian: I have independently interpreted the following test below: I have discussed the management of this patient with the following physician: Patient meets a high level of care for the following reasons: Patient is hyperglycemic requiring adjustments in insulin. This requires intensive monitoring for episodes of hypoglycemia. Objective - Vital Signs Vital signs: Vital Signs Temp 98.3 F 09/09/23 09:42 Pulse 112 H 09/09/23 10:08 Resp 20 09/09/23 10:08 BP 117/63 09/09/23 09:42 Pulse Ox 89 L 09/09/23 09:42 FiO2 40 09/09/23 04:04 Intake & Output 09/08/23 09/09/23 09/09/23 18:59 06:59 18:59 Intake Total 1020 180 Output Total 1000 1175 Balance 20 -1175 180 Intake: Oral 1020 180 Output: Urine 1000 1175 Other: Voiding Method External Catheter External Catheter External Catheter # Bowel Movements 1 - Labs CBC & Chem 7: 09/09/23 08:02 09/09/23 08:02 Labs: Abnormal Lab Results - Last 24 Hours (Table) 09/07/23 09/08/23 09/08/23 Range/Units 08:15 11:28 16:39 WBC (3.8-10.6) k/uL RBC (4.30-5.90) m/uL Hgb (13.0-17.5) gm/dL Hct (39.0-53.0) % Sodium (137-145) mmol/L Chloride (98-107) mmol/L BUN (9-20) mg/dL Creatinine (0.66-1.25) mg/dL Glucose (74-99) mg/dL POC Glucose (mg/dL) 436 H 456 H (70-110) mg/dL SARS-CoV-2 (PCR) Detected A (Not Detectd) 09/08/23 09/09/23 09/09/23 Range/Units 20:13 05:53 08:02 WBC 17.5 H (3.8-10.6) k/uL RBC 4.16 L (4.30-5.90) m/uL Hgb 12.6 L (13.0-17.5) gm/dL Hct 37.3 L (39.0-53.0) % Sodium (137-145) mmol/L Chloride (98-107) mmol/L BUN (9-20) mg/dL Creatinine (0.66-1.25) mg/dL Glucose (74-99) mg/dL POC Glucose (mg/dL) 416 H 382 H (70-110) mg/dL SARS-CoV-2 (PCR) (Not Detectd) 09/09/23 Range/Units 08:02 WBC (3.8-10.6) k/uL RBC (4.30-5.90) m/uL Hgb (13.0-17.5) gm/dL Hct (39.0-53.0) % Sodium 136 L (137-145) mmol/L Chloride 97 L (98-107) mmol/L BUN 50 H (9-20) mg/dL Creatinine 1.38 H (0.66-1.25) mg/dL Glucose 365 H (74-99) mg/dL POC Glucose (mg/dL) (70-110) mg/dL SARS-CoV-2 (PCR) (Not Detectd)
[2023-09-09 11:34] LABS: Glucose,Whole Blood 538 mg/dL (70-110)
[2023-09-09 11:35] LABS: Glucose,Whole Blood 582 mg/dL (70-110)
--- NOTE | 2023-09-09 11:39 | P.PN ---
Subjective Progress Note Date: 09/09/23 Principal diagnosis: Shortness of breath. I am seeing this patient in new consultation today 09/07/2023 after the patient started to have URI-like symptoms two days ago and tested positive for COVID-19 outpatient. Patient is a 72-year-old white male with past medical history si gnificant for COPD with an FEV1 53% of predicted, obstructive sleep apnea with home CPAP, hyperlipidemia, hypertension, diabetes mellitus, coronary artery disease with multiple previous stents, among other things. He does follow with Dr. Au in the pulmonary office for managment of his moderate COPD and DARLIN. Patient reportedly has received his COVID-19 vaccination and was recently boosted. Starting two days ago, the patient reports symptoms of rhinorrhea, sore throat, nonproductive cough, fevers, chills, and shortness of breath that worsened overnight. Denies any nausea, vomiting, diarrhea. Patient was reportedly started on Paxlovid by an urgent care clinic. On arrival to the emergency room, yesterday evening, he was found to be hypoxic, and placed on BiPAP with settings 12/6 and FiO2 40%. Chest x-ray showed cardiomegaly with mild pulmonary vascular congestion. No focal infiltrates. CBC on arrival was unremarkable. No leukocytosis. BMP was also unremarkable. NT proBNP not pa rticularly elevated at 258. EKG shows normal sinus rhythm without any obvious ischemic changes. Patient denies any chest pain, heart palpitations, orthopnea, lower extremity edema. Patient is currently sitting up in bed, on BiPAP with above-mentioned settings, in no acute distress. No signs of hypercapnic encephalopathy. He is achieving tidal volumes of around 350 and his respiratory rate is in the mid 20s. He continues to spike intermittent fevers with a T-max of 102.3F. Vital signs are otherwise stable. Patient was started on a combination of albuterol inhaler, Symbicort inhaler, IV Solu-Medrol. He is being monitored on the cardiac stepdown unit. Progress note dated 09/08/2023. 72-year-old male with history of coronavirus infection, and moderately severe COPD, is admitted, with complaints of shortness of breath, and cough, as well as chest congestion. The patient also had rhinorrhea, sore throat, fever, and chills. Currently, he is resting comfortably in room 356. He is currently on 6 L nasal cannula, or, BiPAP, at 12/6, and 40%. He's not receiving any IV fluids. He is much more awake and alert today, and does admit to feeling that her. White count 16, he will 12.7, hematocrit 38.9, and platelet count was normal. Sodium 136, potassium 4.1, chlorides 98, CO2 22, anion gap 16, BUN 49, and creatinine 1.38. His blood sugar is 436. Magnesium 1.6, and calcium 8.8. Progress note dated 09/09/2023. 72-year-old male admitted with a diagnosis of acute hypoxemic respiratory failure, likely secondary to COPD exacerbation. Today he seen in room 356. He is resting comfortably. He does feel better. He's currently on 6 L of oxygen by nasal cannula. At nighttime, he is using BiPAP, settings of 12/6, and 40. He's not receiving any IV fluids. Currently laboratory includes a white count 17.5, hemoglobin 12.6, hematocrit 37.3, and a platelet count of 310,000. Sodium 136, potassium 4, chlorides 97, CO2 25, BUN 50, and creatinine 1.38. Anion gap is 14. Glucose is 365. Objective - Vital Signs Vital signs: Vital Signs Temp 98.3 F 09/09/23 09:42 Pulse 112 H 09/09/23 10:08 Resp 20 09/09/23 10:08 BP 117/63 09/09/23 09:42 Pulse Ox 89 L 09/09/23 09:42 FiO2 40 09/09/23 04:04 Intake & Output 09/08/23 09/09/23 09/09/23 18:59 06:59 18:59 Intake Total 1020 180 Output Total 1000 1175 Balance 20 -1175 180 Intake: Oral 1020 180 Output: Urine 1000 1175 Other: Voiding Method External Catheter External Catheter External Catheter # Bowel Movements 1 1 - Exam No acute distress, oriented 3. No conversational dyspnea or use of accessory muscles. Currently on 6 L nasal cannula. HEENT examination is grossly unremarkable. Mucous membranes are moist. No oral lesions. Neck supple. Full range of motion. No adenopathy thyromegaly or neck vein distention. Cardiovascular examination reveals regular rhythm rate. S1-S2 normal. No S3 or S4. No discernible murmur noted. Heart sounds are distant. Heart rate 99 bpm. Lungs reveal scattered rhonchi, and expiratory wheezes. No crackles. Breath sounds equal bilaterally. Saturations are in the mid 90s. Abdomen soft bowel sounds are heard. No masses or tenderness. Extremities are intact. No cyanosis clubbing or edema. Skin is without rash or lesion. Neurologic examination is brief but nonfocal. - Labs CBC & Chem 7: 09/09/23 08:02 09/09/23 08:02 Labs: Abnormal Lab Results - Last 24 Hours (Table) 09/08/23 09/08/23 09/09/23 Range/Units 16:39 20:13 05:53 WBC (3.8-10.6) k/uL RBC (4.30-5.90) m/uL Hgb (13.0-17.5) gm/dL Hct (39.0-53.0) % Sodium (137-145) mmol/L Chloride (98-107) mmol/L BUN (9-20) mg/dL Creatinine (0.66-1.25) mg/dL Glucose (74-99) mg/dL POC Glucose (mg/dL) 456 H 416 H 382 H (70-110) mg/dL 09/09/23 09/09/23 09/09/23 Range/Units 08:02 08:02 11:32 WBC 17.5 H (3.8-10.6) k/uL RBC 4.16 L (4.30-5.90) m/uL Hgb 12.6 L (13.0-17.5) gm/dL Hct 37.3 L (39.0-53.0) % Sodium 136 L (137-145) mmol/L Chloride 97 L (98-107) mmol/L BUN 50 H (9-20) mg/dL Creatinine 1.38 H (0.66-1.25) mg/dL Glucose 365 H (74-99) mg/dL POC Glucose (mg/dL) 538 H (70-110) mg/dL 09/09/23 Range/Units 11:33 WBC (3.8-10.6) k/uL RBC (4.30-5.90) m/uL Hgb (13.0-17.5) gm/dL Hct (39.0-53.0) % Sodium (137-145) mmol/L Chloride (98-107) mmol/L BUN (9-20) mg/dL Creatinine (0.66-1.25) mg/dL Glucose (74-99) mg/dL POC Glucose (mg/dL) 582 H (70-110) mg/dL Assessment and Plan Assessment: Acute COPD exacerbation, secondary to acute COVID-19 infection. Acute COVID-19 infection. Moderately severe COPD, with an FEV1 that is 53% of predicted. Acute hypoxemic respiratory failure, secondary to above. Obstructive sleep apnea, on home CPAP. History of paroxysmal atrial fibrillation. Coronary artery disease with previous coronary stents Insulin-dependent diabetes mellitus. Hyperlipidemia. Benign essential hypertension. Obesity with a BMI of 37 kg/m. Former tobacco smoker. Plan: Plan dated 09/08/2023. The patient is seen today in room 356. He is much more awake and alert. He did use BiPAP last night at 12/6, and 40%. Currently, he's on 6 L nasal cannula. The patient is not having any conversational dyspnea, or use of accessory muscles. Labs, x-rays, and medications are reviewed. The patient continues on updrafts, and Solu-Medrol. We will continue to follow and make recommendations along the way. Prognosis is guarded. Plan dated 09/09/2023. The patient is seen in room 356. The patient's on 6 L of oxygen. Saturations in the low 90s. He is using BiPAP at nighttime. Clinically, he feels better. He is less short of breath. We'll continue to follow the patient, and make recommendations along the way. His medications are appropriate. Labs, x-rays, and medications are reviewed. The patient's overall prognosis remains guarded and she does have moderately severe COPD. Time with Patient: Less than 30
[2023-09-09] MEDS: SODIUM CHLORIDE 0.9% 1,000 ML IV SCH (12:10)
[2023-09-09 13:10] LABS: Glucose,Whole Blood 527 mg/dL (70-110)
[2023-09-09 16:34] LABS: Glucose,Whole Blood 457 mg/dL (70-110)
[2023-09-09] MEDS: TAMSULOSIN 0.4 MG CAP.ER.24H PO SCH (19:57)
[2023-09-09] MEDS: ISOSORBIDE MONONITRATE ER 60 MG TAB.ER.24H PO SCH (19:57)
[2023-09-09] MEDS: MONTELUKAST 10 MG TAB PO SCH (19:57)
[2023-09-09] MEDS: ATORVASTATIN 20 MG TAB PO SCH (19:57)
[2023-09-09] MEDS: LATANOPROST 0.005% OPHTH DROPS 2.5 ML BTL BOTH EYES SCH (19:58)
[2023-09-09] MEDS: ARIPiprazole 10 MG TAB PO SCH (19:58)
[2023-09-09 20:06] LABS: Glucose,Whole Blood 371 mg/dL (70-110)
[2023-09-10] MEDS: methylPREDNISolone SOD SUCCI 125 MG/2 ML VIAL IV SCH ×4 (03:56→20:44)
[2023-09-10] MEDS: SODIUM CHLORIDE 0.9% 1,000 ML IV SCH (05:44)
[2023-09-10 05:48] LABS: Glucose,Whole Blood 255 mg/dL (70-110)
[2023-09-10] MEDS: INSULIN ASPART (NovoLOG) 100 UNIT/ML VIAL SQ SCH ×6 (06:19→16:55)
[2023-09-10] MEDS: LEVOTHYROXINE 25 MCG TAB PO SCH (06:19)
[2023-09-10] MEDS: INSULIN DETEMIR (LEVEMIR) 100 UNIT/ML SYR SQ SCH ×2 (06:19→20:46)
[2023-09-10] MEDS: FERROUS SULFATE 325 MG TAB PO SCH ×2 (08:05→20:44)
[2023-09-10] MEDS: amLODIPine 10 MG TAB PO SCH (08:05)
[2023-09-10] MEDS: FINASTERIDE 5 MG TAB PO SCH (08:05)
[2023-09-10] MEDS: ENOXAPARIN 30 MG/0.3 ML SYRINGE SQ SCH ×2 (08:05→20:47)
[2023-09-10] MEDS: TICAGRELOR 90 MG TAB PO SCH ×2 (08:05→20:46)
[2023-09-10] MEDS: ESCITALOPRAM 20 MG TAB PO SCH (08:05)
[2023-09-10] MEDS: PSYLLIUM HUSK 100% 6 GM PACKET PO SCH (08:06)
[2023-09-10] MEDS: ALBUTEROL HFA INHALER INHALATION PRN (08:51)
[2023-09-10] MEDS: SYMBICORT 160-4.5 MCG INHALER INHALATION SCH ×2 (08:51→20:27)
--- NOTE | 2023-09-10 11:18 | P.PN ---
Subjective Progress Note Date: 09/10/23 Patient is a 72-year-old male with a PMH of COPD, paroxysmal A. fib (not on anticoagulation, unknown reason), CAD status post multiple stents, type II DM, hypertension, hyperlipidemia, BPH, and DARLIN on CPAP presented to the emergency room with complaints of URI like symptoms. In the emergency room a chest x-ray revealed findings of pulmonary venous congestion. EKG revealed sinus rhythm at [address]/T-wave changes noted as reviewed by me. Laboratory evaluation revealed a proBNP 258, d-dimer of 0.9, BUN 25, with troponin 0.021. Patient was admitted to cardiac selective with rescue BiPAP. He was started on Solu-Medrol, Symbicort, albuterol nebulizers. Pulmonology consult was obtained and their recommendations appreciated. CT angiography was obtained and while there is motion artifact, this did not show any overt evidence of heart failure, pulmonary embolism. Therefore, it was assessed that vascular congestion seen on chest x-ray was likely due to moderate inspiratory effort. Furthermore, BNP was not elevated at 258. Patient was given 1 dose of Lasix of 40 mg IV, and echocardiogram was ordered. He was started on BiPAP QHS and supplemental O2 to maintain O2 saturation > 92%. Procal was negative, no antibiotics were started. 09/08 Patient was seen and examined. Reports continued shortness of breath. Currently on 6L NC. CBC shows WBC 16, Hg 12.7. BMP Na 136, BUN 49, Cr 1.38, glucose 447. Mag 1.6. 09/09 Patient was seen and examined. Currently on 6L. Reports some lighthe adedness when standing up. CBC shows WBC 17.5, Hg 12.6. BMP Na 136, Cl 97, BUN 50, Cr 1.38, glucose 365. 09/10 Patient was seen and examined. Currently on BiPAP saturating 90%. POC glucose ranging from 255-582 over the past 24H. General: non toxic, no distress, appears at stated age Derm: warm, dry Head: atraumatic, normocephalic, symmetric Eyes: EOMI, no lid lag, anicteric sclera Cardiovascular: good distal perfusion in all 4 extremities. Lungs: breathing comfortably on 6L, no accessory muscle use Ext: no gross muscle atrophy, no edema, no contractures Neuro: no focal neuro deficits Psych: Alert, oriented, appropriate affect Acute hypoxic respiratory failure Acute COPD exacerbation Covid 19 Type 2 diabetes with hyperglycemia Leukocytosis KIRK Elevated d-dimer Chronic conditions: A-Fib, CAD, HTN, HLD, BPH Based on my assessment of this patient, this patient meets a high complexity level of care. Patient has an acute diagnosis of AHRF that poses a threat to life or bodily function. COVID +. Blood glucose persistent in the 400s. Acute hypoxic respiratory failure: Supplemental O2 to maintain O2 saturation > 92%. Solumedrol 60 mg IV Q6H. Telemetry monitoring. Acute COPD exacerbation: Restart Symbicort. Albuterol 2 puff INH Q2H PRN for SOB/wheezing. COVID 19: Steroids as above. Airborn precautions. Type 2 diabetes with hyperglycemia: Increased Novolog to 35 TID with Levemir 80 BID. Continue high dose SS. Accuchecks ACHS. Leukocytosis: Related to steroid use. KIRK: Hold Lisinopril. Start NS at 75 cc/hr. Repeat BMP tomorrow morning. Small pleural effusion: No tamponade on Echo. Elevated d-dimer: Related to COVID 19. I have reviewed the following health consultant notes: Pulmonology note. I have reviewed the results of the following tests: POC glucose I have ordered the following tests: BMP I have discussed the care of this patient with the following independent historian: I have independently interpreted the following test below: I have discussed the management of this patient with the following physician: Patient meets a high level of care for the following reasons: Patient is hyperglycemic requiring adjustments in insulin. This requires intensive monitoring for episodes of hypoglycemia. Objective - Vital Signs Vital signs: Vital Signs Temp 98.5 F 09/10/23 08:00 Pulse 99 09/10/23 11:11 Resp 29 H 09/10/23 11:11 BP 143/72 09/10/23 11:11 Pulse Ox 92 L 09/10/23 11:11 FiO2 50 09/10/23 11:11 Intake & Output 09/09/23 09/10/23 09/10/23 18:59 06:59 18:59 Intake Total 540 120 Output Total 1200 650 600 Balance -660 -650 -480 Intake: Oral 540 120 Output: Urine 1200 650 600 Other: Voiding Method External Catheter External Catheter External Catheter # Bowel Movements 1 - Labs CBC & Chem 7: 09/09/23 08:02 09/09/23 08:02 Labs: Abnormal Lab Results - Last 24 Hours (Table) 09/09/23 09/09/23 09/09/23 Range/Units 11:32 11:33 13:08 POC Glucose (mg/dL) 538 H 582 H 527 H (70-110) mg/dL 09/09/23 09/09/23 09/10/23 Range/Units 16:33 20:05 05:47 POC Glucose (mg/dL) 457 H 371 H 255 H (70-110) mg/dL
[2023-09-10 11:37] LABS: Glucose,Whole Blood 289 mg/dL (70-110)
--- NOTE | 2023-09-10 11:46 | P.PN ---
Subjective Progress Note Date: 09/10/23 Principal diagnosis: Shortness of breath. I am seeing this patient in new consultation today 09/07/2023 after the patient started to have URI-like symptoms two days ago and tested positive for COVID-19 outpatient. Patient is a 72-year-old white male with past medical history si gnificant for COPD with an FEV1 53% of predicted, obstructive sleep apnea with home CPAP, hyperlipidemia, hypertension, diabetes mellitus, coronary artery disease with multiple previous stents, among other things. He does follow with Dr. Au in the pulmonary office for managment of his moderate COPD and DARLIN. Patient reportedly has received his COVID-19 vaccination and was recently boosted. Starting two days ago, the patient reports symptoms of rhinorrhea, sore throat, nonproductive cough, fevers, chills, and shortness of breath that worsened overnight. Denies any nausea, vomiting, diarrhea. Patient was reportedly started on Paxlovid by an urgent care clinic. On arrival to the emergency room, yesterday evening, he was found to be hypoxic, and placed on BiPAP with settings 12/6 and FiO2 40%. Chest x-ray showed cardiomegaly with mild pulmonary vascular congestion. No focal infiltrates. CBC on arrival was unremarkable. No leukocytosis. BMP was also unremarkable. NT proBNP not pa rticularly elevated at 258. EKG shows normal sinus rhythm without any obvious ischemic changes. Patient denies any chest pain, heart palpitations, orthopnea, lower extremity edema. Patient is currently sitting up in bed, on BiPAP with above-mentioned settings, in no acute distress. No signs of hypercapnic encephalopathy. He is achieving tidal volumes of around 350 and his respiratory rate is in the mid 20s. He continues to spike intermittent fevers with a T-max of 102.3F. Vital signs are otherwise stable. Patient was started on a combination of albuterol inhaler, Symbicort inhaler, IV Solu-Medrol. He is being monitored on the cardiac stepdown unit. Progress note dated 09/08/2023. 72-year-old male with history of coronavirus infection, and moderately severe COPD, is admitted, with complaints of shortness of breath, and cough, as well as chest congestion. The patient also had rhinorrhea, sore throat, fever, and chills. Currently, he is resting comfortably in room 356. He is currently on 6 L nasal cannula, or, BiPAP, at 12/6, and 40%. He's not receiving any IV fluids. He is much more awake and alert today, and does admit to feeling that her. White count 16, he will 12.7, hematocrit 38.9, and platelet count was normal. Sodium 136, potassium 4.1, chlorides 98, CO2 22, anion gap 16, BUN 49, and creatinine 1.38. His blood sugar is 436. Magnesium 1.6, and calcium 8.8. Progress note dated 09/09/2023. 72-year-old male admitted with a diagnosis of acute hypoxemic respiratory failure, likely secondary to COPD exacerbation. Today he seen in room 356. He is resting comfortably. He does feel better. He's currently on 6 L of oxygen by nasal cannula. At nighttime, he is using BiPAP, settings of 12/6, and 40. He's not receiving any IV fluids. Currently laboratory includes a white count 17.5, hemoglobin 12.6, hematocrit 37.3, and a platelet count of 310,000. Sodium 136, potassium 4, chlorides 97, CO2 25, BUN 50, and creatinine 1.38. Anion gap is 14. Glucose is 365. Progress note dated 09/10/2023. 72-year-old male with a diagnosis of acute hypoxemic respiratory failure secondary to COPD exacerbation. The patient is seen today in room 356. He's currently on BiPAP, with settings of 12/6, and 40%. Clinically, the patient has been improving, day by day. Laboratory data today includes a blood sugar of 289. Objective - Vital Signs Vital signs: Vital Signs Temp 98.5 F 09/10/23 08:00 Pulse 99 09/10/23 11:11 Resp 29 H 09/10/23 11:11 BP 143/72 09/10/23 11:11 Pulse Ox 92 L 09/10/23 11:11 FiO2 50 09/10/23 11:11 Intake & Output 09/09/23 09/10/23 09/10/23 18:59 06:59 18:59 Intake Total 540 120 Output Total 1200 650 600 Balance -660 -650 -480 Intake: Oral 540 120 Output: Urine 1200 650 600 Other: Voiding Method External Catheter External Catheter External Catheter # Bowel Movements 1 - Exam No acute distress, oriented 3. No conversational dyspnea or use of accessory muscles. Currently on BiPAP. HEENT examination is grossly unremarkable. Mucous membranes are moist. No oral lesions. Neck supple. Full range of motion. No adenopathy thyromegaly or neck vein distention. Cardiovascular examination reveals regular rhythm rate. S1-S2 normal. No S3 or S4. No discernible murmur noted. Heart sounds are distant. Heart rate 89 bpm. Lungs reveal scattered rhonchi, and expiratory wheezes. No crackles. Breath sounds equal bilaterally. Saturations are 92% on BiPAP. Abdomen soft bowel sounds are heard. No masses or tenderness. Extremities are intact. No cyanosis clubbing or edema. Skin is without rash or lesion. Neurologic examination is brief but nonfocal. - Labs CBC & Chem 7: 09/09/23 08:02 09/09/23 08:02 Labs: Abnormal Lab Results - Last 24 Hours (Table) 09/09/23 09/09/23 09/09/23 Range/Units 13:08 16:33 20:05 POC Glucose (mg/dL) 527 H 457 H 371 H (70-110) mg/dL 09/10/23 09/10/23 Range/Units 05:47 11:33 POC Glucose (mg/dL) 255 H 289 H (70-110) mg/dL Assessment and Plan Assessment: Acute COPD exacerbation, secondary to acute COVID-19 infection. Acute COVID-19 infection. Moderately severe COPD, with an FEV1 that is 53% of predicted. Acute hypoxemic respiratory failure, secondary to above. Obstructive sleep apnea, on home CPAP. History of paroxysmal atrial fibrillation. Coronary artery disease with previous coronary stents Insulin-dependent diabetes mellitus. Hyperlipidemia. Benign essential hypertension. Obesity with a BMI of 37 kg/m. Former tobacco smoker. Plan: Plan dated 09/08/2023. The patient is seen today in room 356. He is much more awake and alert. He did use BiPAP last night at 12/6, and 40%. Currently, he's on 6 L nasal cannula. The patient is not having any conversational dyspnea, or use of accessory muscles. Labs, x-rays, and medications are reviewed. The patient continues on updrafts, and Solu-Medrol. We will continue to follow and make recommendations along the way. Prognosis is guarded. Plan dated 09/09/2023. The patient is seen in room 356. The patient's on 6 L of oxygen. Saturations in the low 90s. He is using BiPAP at nighttime. Clinically, he feels better. He is less short of breath. We'll continue to follow the patient, and make recommendations along the way. His medications are appropriate. Labs, x-rays, and medications are reviewed. The patient's overall prognosis remains guarded and she does have moderately severe COPD. Plan dated 09/10/2023. The patient continues to show clinical improvement, daily. Currently, he is resting on BiPAP, with settings of 12/6, and 40%. Labs, x-rays, and medications are reviewed. The patient's overall prognosis remains guarded. He does have moderately severe COPD. He did test positive for coronavirus, but does not appear to have coronavirus associated pneumonia. We will continue to follow the patient, and make recommendations along the way. Time with Patient: Less than 30
[2023-09-10 13:03] LABS: Glucose,Whole Blood 235 mg/dL (70-110)
[2023-09-10 16:40] LABS: Glucose,Whole Blood 230 mg/dL (70-110)
[2023-09-10 19:40] LABS: Glucose,Whole Blood 145 mg/dL (70-110)
[2023-09-10] MEDS: TAMSULOSIN 0.4 MG CAP.ER.24H PO SCH (20:45)
[2023-09-10] MEDS: MONTELUKAST 10 MG TAB PO SCH (20:45)
[2023-09-10] MEDS: ISOSORBIDE MONONITRATE ER 60 MG TAB.ER.24H PO SCH (20:45)
[2023-09-10] MEDS: ATORVASTATIN 20 MG TAB PO SCH (20:46)
[2023-09-10] MEDS: ARIPiprazole 10 MG TAB PO SCH (20:46)
[2023-09-10] MEDS: LATANOPROST 0.005% OPHTH DROPS 2.5 ML BTL BOTH EYES SCH (20:47)
[2023-09-11] MEDS: INSULIN ASPART (NovoLOG) 100 UNIT/ML VIAL SQ SCH ×8 (00:42→20:33)
[2023-09-11] MEDS: SODIUM CHLORIDE 0.9% 1,000 ML IV SCH (04:56)
[2023-09-11] MEDS: methylPREDNISolone SOD SUCCI 125 MG/2 ML VIAL IV SCH ×4 (04:56→21:23)
[2023-09-11 06:22] LABS: Glucose,Whole Blood 331 mg/dL (70-110)
[2023-09-11] MEDS: LEVOTHYROXINE 25 MCG TAB PO SCH (07:26)
[2023-09-11] MEDS: INSULIN DETEMIR (LEVEMIR) 100 UNIT/ML SYR SQ SCH ×2 (07:27→20:31)
[2023-09-11] MEDS: FERROUS SULFATE 325 MG TAB PO SCH ×2 (07:57→20:33)
[2023-09-11] MEDS: amLODIPine 10 MG TAB PO SCH (07:57)
[2023-09-11] MEDS: ENOXAPARIN 30 MG/0.3 ML SYRINGE SQ SCH ×2 (07:57→20:33)
[2023-09-11] MEDS: FINASTERIDE 5 MG TAB PO SCH (07:57)
[2023-09-11] MEDS: PSYLLIUM HUSK 100% 6 GM PACKET PO SCH (07:57)
[2023-09-11] MEDS: ESCITALOPRAM 20 MG TAB PO SCH (07:57)
[2023-09-11] MEDS: TICAGRELOR 90 MG TAB PO SCH ×2 (07:57→20:33)
[2023-09-11] MEDS: SYMBICORT 160-4.5 MCG INHALER INHALATION SCH ×2 (09:11→20:25)
[2023-09-11] MEDS: ALBUTEROL HFA INHALER INHALATION PRN ×2 (09:12→20:25)
[2023-09-11 10:01] LABS: African American GFR (CKD) 71 (>60 ml/min/1.73 sqM); Anion Gap 11 mmol/L; Blood Urea Nitrogen 46 mg/dL (9-20); Calcium 8.7 mg/dL (8.4-10.2); Carbon Dioxide 27 mmol/L (22-30); Chloride 98 mmol/L (98-107); Glucose 330 mg/dL (74-99); Non-African American GFR(CKD) 61 (>60 ml/min/1.73 sqM); Sodium 136 mmol/L (137-145)
--- NOTE | 2023-09-11 10:48 | XR ---
EXAMINATION TYPE: XR chest 1V portable DATE OF EXAM: 09/11/2023 COMPARISON: 09/06/2023 HISTORY: Axial TECHNIQUE: Single frontal view of the chest is obtained. FINDINGS: Bilateral lower lobe infiltrate. No overt failure or pneumothorax. Limited inspiration wit h cardiomegaly. Hypertrophic change of the spine. IMPRESSION: New bilateral lower lobe infiltrate. Correlate for pneumonia.
--- NOTE | 2023-09-11 11:12 | P.PN ---
Subjective Progress Note Date: 09/11/23 Principal diagnosis: Shortness of breath. I am seeing this patient in new consultation today 09/07/2023 after the patient started to have URI-like symptoms two days ago and tested positive for COVID-19 outpatient. Patient is a 72-year-old white male with past medical history si gnificant for COPD with an FEV1 53% of predicted, obstructive sleep apnea with home CPAP, hyperlipidemia, hypertension, diabetes mellitus, coronary artery disease with multiple previous stents, among other things. He does follow with Dr. Au in the pulmonary office for managment of his moderate COPD and DARLIN. Patient reportedly has received his COVID-19 vaccination and was recently boosted. Starting two days ago, the patient reports symptoms of rhinorrhea, sore throat, nonproductive cough, fevers, chills, and shortness of breath that worsened overnight. Denies any nausea, vomiting, diarrhea. Patient was reportedly started on Paxlovid by an urgent care clinic. On arrival to the emergency room, yesterday evening, he was found to be hypoxic, and placed on BiPAP with settings 12/6 and FiO2 40%. Chest x-ray showed cardiomegaly with mild pulmonary vascular congestion. No focal infiltrates. CBC on arrival was unremarkable. No leukocytosis. BMP was also unremarkable. NT proBNP not pa rticularly elevated at 258. EKG shows normal sinus rhythm without any obvious ischemic changes. Patient denies any chest pain, heart palpitations, orthopnea, lower extremity edema. Patient is currently sitting up in bed, on BiPAP with above-mentioned settings, in no acute distress. No signs of hypercapnic encephalopathy. He is achieving tidal volumes of around 350 and his respiratory rate is in the mid 20s. He continues to spike intermittent fevers with a T-max of 102.3F. Vital signs are otherwise stable. Patient was started on a combination of albuterol inhaler, Symbicort inhaler, IV Solu-Medrol. He is being monitored on the cardiac stepdown unit. Progress note dated 09/08/2023. 72-year-old male with history of coronavirus infection, and moderately severe COPD, is admitted, with complaints of shortness of breath, and cough, as well as chest congestion. The patient also had rhinorrhea, sore throat, fever, and chills. Currently, he is resting comfortably in room 356. He is currently on 6 L nasal cannula, or, BiPAP, at 12/6, and 40%. He's not receiving any IV fluids. He is much more awake and alert today, and does admit to feeling that her. White count 16, he will 12.7, hematocrit 38.9, and platelet count was normal. Sodium 136, potassium 4.1, chlorides 98, CO2 22, anion gap 16, BUN 49, and creatinine 1.38. His blood sugar is 436. Magnesium 1.6, and calcium 8.8. Progress note dated 09/09/2023. 72-year-old male admitted with a diagnosis of acute hypoxemic respiratory failure, likely secondary to COPD exacerbation. Today he seen in room 356. He is resting comfortably. He does feel better. He's currently on 6 L of oxygen by nasal cannula. At nighttime, he is using BiPAP, settings of 12/6, and 40. He's not receiving any IV fluids. Currently laboratory includes a white count 17.5, hemoglobin 12.6, hematocrit 37.3, and a platelet count of 310,000. Sodium 136, potassium 4, chlorides 97, CO2 25, BUN 50, and creatinine 1.38. Anion gap is 14. Glucose is 365. Progress note dated 09/10/2023. 72-year-old male with a diagnosis of acute hypoxemic respiratory failure secondary to COPD exacerbation. The patient is seen today in room 356. He's currently on BiPAP, with settings of 12/6, and 40%. Clinically, the patient has been improving, day by day. Laboratory data today includes a blood sugar of 289. Progress note dated 09/11/2023. 72-year-old male with a diagnosis of acute hypoxemic respiratory failure, secondary to COPD exacerbation. The patient did test positive for coronavirus, but is not thought to have coronavirus associated pneumonia. CT angiogram did not reveal the typical groundglass opacities, and, there is no evidence of pulmonary embolism. Currently, he's on 10 L high flow oxygen, and receiving saline at 50 mL an hour. At nighttime, he's on BiPAP, with settings of 12/6, and 50%. A chest x-ray is ordered today. Sodium 136, potassium 4, chlorides 98, CO2 27, BUN 46, and creatinine 1.18. Glucose 330. Calcium is 8.7. Chest x-ray show some new patchy bibasilar infiltrates. Objective - Vital Signs Vital signs: Vital Signs Temp 98 F 09/11/23 07:55 Pulse 89 09/11/23 07:55 Resp 20 09/11/23 07:55 BP 168/74 09/11/23 07:55 Pulse Ox 91 L 09/11/23 09:15 FiO2 50 09/11/23 05:09 Intake & Output 09/10/23 09/11/23 09/11/23 18:59 06:59 18:59 Intake Total 120 250 355 Output Total 1100 320 Balance -980 -70 355 Intake: Oral 120 250 355 Output: Urine 1100 320 Other: Voiding Method External Catheter External Catheter External Catheter # Voids 1 - Exam No acute distress, oriented 3. No conversational dyspnea or use of accessory muscles. Currently on 10 L high flow oxygen. HEENT examination is grossly unremarkable. Mucous membranes are moist. No oral lesions. Neck supple. Full range of motion. No adenopathy thyromegaly or neck vein distention. Cardiovascular examination reveals regular rhythm rate. S1-S2 normal. No S3 or S4. No discernible murmur noted. Heart sounds are distant. Heart rate 91 bpm. Lungs reveal scattered rhonchi, and expiratory wheezes. No crackles. Breath sounds equal bilaterally. Saturations are 92%. Abdomen soft bowel sounds are heard. No masses or tenderness. Extremities are intact. No cyanosis clubbing or edema. Skin is without rash or lesion. Neurologic examination is brief but nonfocal. - Labs CBC & Chem 7: 09/09/23 08:02 09/11/23 08:54 Labs: Abnormal Lab Results - Last 24 Hours (Table) 09/10/23 09/10/23 09/10/23 Range/Units 11:33 13:01 16:29 Sodium (137-145) mmol/L BUN (9-20) mg/dL Glucose (74-99) mg/dL POC Glucose (mg/dL) 289 H 235 H 230 H (70-110) mg/dL 09/10/23 09/11/23 09/11/23 Range/Units 19:38 06:20 08:54 Sodium 136 L (137-145) mmol/L BUN 46 H (9-20) mg/dL Glucose 330 H (74-99) mg/dL POC Glucose (mg/dL) 145 H 331 H (70-110) mg/dL Assessment and Plan Assessment: Acute COPD exacerbation, secondary to acute COVID-19 infection. New-onset bibasilar infiltrates, rule out pneumonia. Acute COVID-19 infection, without evidence of pulmonary embolism, or coronavirus associated pneumonia. Moderately severe COPD, with an FEV1 that is 53% of predicted. Acute hypoxemic respiratory failure, secondary to above. Obstructive sleep apnea, on home CPAP. History of paroxysmal atrial fibrillation. Coronary artery disease with previous coronary stents Insulin-dependent diabetes mellitus. Hyperlipidemia. Benign essential hypertension. Obesity with a BMI of 37 kg/m. Former tobacco smoker. Plan: Plan dated 09/08/2023. The patient is seen today in room 356. He is much more awake and alert. He did use BiPAP last night at 12/6, and 40%. Currently, he's on 6 L nasal cannula. The patient is not having any conversational dyspnea, or use of accessory muscles. Labs, x-rays, and medications are reviewed. The patient continues on updrafts, and Solu-Medrol. We will continue to follow and make recommendations along the way. Prognosis is guarded. Plan dated 09/09/2023. The patient is seen in room 356. The patient's on 6 L of oxygen. Saturations in the low 90s. He is using BiPAP at nighttime. Clinically, he feels better. He is less short of breath. We'll continue to follow the patient, and make rec ommendations along the way. His medications are appropriate. Labs, x-rays, and medications are reviewed. The patient's overall prognosis remains guarded and she does have moderately severe COPD. Plan dated 09/10/2023. The patient continues to show clinical improvement, daily. Currently, he is resting on BiPAP, with settings of 12/6, and 40%. Labs, x-rays, and medications are reviewed. The patient's overall prognosis remains guarded. He does have moderately severe COPD. He did test positive for coronavirus, but does not appear to have coronavirus associated pneumonia. We will continue to follow the patient, and make recommendations along the way. Plan dated 09/11/2023. The patient will have a pro-calcitonin level ordered. In addition, we'll start the patient on Zosyn empirically. Additional recommendations and suggestions are forthcoming. His oxygen requirements are going up. There was no evidence of pulmonary embolism, are groundglass changes on previous CT angiogram. Additional recommendations and suggestions are forthcoming. Prognosis is certainly guarded. Time with Patient: Less than 30
[2023-09-11 11:17] VITALS: BMI 37.0
[2023-09-11 11:29] LABS: Glucose,Whole Blood 286 mg/dL (70-110)
--- NOTE | 2023-09-11 12:22 | P.PN ---
Subjective Progress Note Date: 09/11/23 Patient is a 72-year-old male with a PMH of COPD, paroxysmal A. fib (not on anticoagulation, unknown reason), CAD status post multiple stents, type II DM, hypertension, hyperlipidemia, BPH, and DARLIN on CPAP presented to the emergency room with complaints of URI like symptoms. In the emergency room a chest x-ray revealed findings of pulmonary venous congestion. EKG revealed sinus rhythm at [address]/T-wave changes noted as reviewed by me. Laboratory evaluation revealed a proBNP 258, d-dimer of 0.9, BUN 25, with troponin 0.021. Patient was admitted to cardiac selective with rescue BiPAP. He was started on Solu-Medrol, Symbicort, albuterol nebulizers. Pulmonology consult was obtained and their recommendations appreciated. CT angiography was obtained and while there is motion artifact, this did not show any overt evidence of heart failure, pulmonary embolism. Therefore, it was assessed that vascular congestion seen on chest x-ray was likely due to moderate inspiratory effort. Furthermore, BNP was not elevated at 258. Patient was given 1 dose of Lasix of 40 mg IV, and echocardiogram was ordered. He was started on BiPAP QHS and supplemental O2 to maintain O2 saturation > 92%. Procal was negative, no antibiotics were started. 09/08 Patient was seen and examined. Reports continued shortness of breath. Currently on 6L NC. CBC shows WBC 16, Hg 12.7. BMP Na 136, BUN 49, Cr 1.38, glucose 447. Mag 1.6. 09/09 Patient was seen and examined. Currently on 6L. Reports some lighthe adedness when standing up. CBC shows WBC 17.5, Hg 12.6. BMP Na 136, Cl 97, BUN 50, Cr 1.38, glucose 365. 09/10 Patient was seen and examined. Currently on BiPAP saturating 90%. POC glucose ranging from 255-582 over the past 24H. 09/11 Patient was seen and examined. No complaints. Currently on 10L HFNC. BMP Na 136, BUN 46, glucose 330. CXR shows new bilateral lower lobe infiltrate. Started on Zosyn. General: non toxic, no distress, appears at stated age Derm: warm, dry Head: atraumatic, normocephalic, symmetric Eyes: EOMI, no lid lag, anicteric sclera Cardiovascular: good distal perfusion in all 4 extremities. Lungs: breathing comfortably on 6L, no accessory muscle use Ext: no gross muscle atrophy, no edema, no contractures Neuro: no focal neuro deficits Psych: Alert, oriented, appropriate affect Acute hypoxic respiratory failure Acute COPD exacerbation Acute bacterial pneumonia Covid 19 Type 2 diabetes with hyperglycemia Leukocytosis KIRK Elevated d-dimer Chronic conditions: A-Fib, CAD, HTN, HLD, BPH Based on my assessment of this patient, this patient meets a high complexity level of care. Patient has an acute diagnosis of AHRF that poses a threat to life or bodily function. COVID +. Blood glucose persistent in the 400s. Acute hypoxic respiratory failure: Supplemental O2 to maintain O2 saturation > 92%. Solumedrol 60 mg IV Q6H. Telemetry monitoring. Acute COPD exacerbation: Restart Symbicort. Albuterol 2 puff INH Q2H PRN for SOB/wheezing. Acute bacterial pneumonia: Started on Zosyn. Procalcitonin ordered. COVID 19: Steroids as above. Airborn precautions. Type 2 diabetes with hyperglycemia: Novolog to 35 TID with Levemir 80 BID. Continue high dose SS. Accuchecks ACHS. Leukocytosis: Related to steroid use. KIRK: Hold Lisinopril. NS at 50 cc/hr. Small pleural effusion: No tamponade on Echo. Elevated d-dimer: Related to COVID 19. I have reviewed the following biztalk consultant notes: Pulmonology note. I have reviewed the results of the following tests: POC glucose, BMP I have ordered the following tests: BMP I have discussed the care of this patient with the following independent historian: I have independently interpreted the following test below: CXR I have discussed the management of this patient with the following physician: Objective - Vital Signs Vital signs: Vital Signs Temp 98 F 09/11/23 07:55 Pulse 89 09/11/23 07:55 Resp 20 09/11/23 07:55 BP 168/74 09/11/23 07:55 Pulse Ox 91 L 09/11/23 09:15 FiO2 50 09/11/23 05:09 Intake & Output 09/10/23 09/11/23 09/11/23 18:59 06:59 18:59 Intake Total 120 250 355 Output Total 1100 320 Balance -980 -70 355 Weight 117.027 kg Intake: Oral 120 250 355 Output: Urine 1100 320 Other: Voiding Method External Catheter External Catheter External Catheter # Voids 1 - Labs CBC & Chem 7: 09/09/23 08:02 09/11/23 08:54 Labs: Abnormal Lab Results - Last 24 Hours (Table) 09/10/23 09/10/23 09/10/23 Range/Units 13:01 16:29 19:38 Sodium (137-145) mmol/L BUN (9-20) mg/dL Glucose (74-99) mg/dL POC Glucose (mg/dL) 235 H 230 H 145 H (70-110) mg/dL 09/11/23 09/11/23 09/11/23 Range/Units 06:20 08:54 11:27 Sodium 136 L (137-145) mmol/L BUN 46 H (9-20) mg/dL Glucose 330 H (74-99) mg/dL POC Glucose (mg/dL) 331 H 286 H (70-110) mg/dL
[2023-09-11] MEDS: PIPERACILLIN-TAZOBACTAM 3.375 GM in SODIUM CHLORIDE 0.9% 100 ML IVPB SCH ×2 (15:59→23:55)
[2023-09-11 16:33] LABS: Glucose,Whole Blood 446 mg/dL (70-110)
[2023-09-11 20:04] LABS: Glucose,Whole Blood 329 mg/dL (70-110)
[2023-09-11] MEDS: ATORVASTATIN 20 MG TAB PO SCH (20:33)
[2023-09-11] MEDS: ISOSORBIDE MONONITRATE ER 60 MG TAB.ER.24H PO SCH (20:33)
[2023-09-11] MEDS: ARIPiprazole 10 MG TAB PO SCH (20:33)
[2023-09-11] MEDS: TAMSULOSIN 0.4 MG CAP.ER.24H PO SCH (20:33)
[2023-09-11] MEDS: MONTELUKAST 10 MG TAB PO SCH (20:33)
[2023-09-11] MEDS: LATANOPROST 0.005% OPHTH DROPS 2.5 ML BTL BOTH EYES SCH (20:34)
[2023-09-11] MEDS ORDERED: PIPERACILLIN-TAZOBACTAM 3.375 GM in SODIUM CHLORIDE 0.9% 100 ML IVPB SCH (21:00)
[2023-09-12] MEDS: SODIUM CHLORIDE 0.9% 1,000 ML IV SCH (00:26)
[2023-09-12] MEDS: methylPREDNISolone SOD SUCCI 125 MG/2 ML VIAL IV SCH ×4 (05:06→20:47)
[2023-09-12 06:21] LABS: Glucose,Whole Blood 169 mg/dL (70-110)
[2023-09-12] MEDS: INSULIN ASPART (NovoLOG) 100 UNIT/ML VIAL SQ SCH ×7 (06:31→20:49)
[2023-09-12] MEDS: INSULIN DETEMIR (LEVEMIR) 100 UNIT/ML SYR SQ SCH ×2 (06:31→20:49)
[2023-09-12] MEDS: LEVOTHYROXINE 25 MCG TAB PO SCH (06:31)
[2023-09-12] MEDS ORDERED: FUROSEMIDE 10 MG/ML 4 ML VIAL IV STA (08:31)
[2023-09-12] MEDS: FERROUS SULFATE 325 MG TAB PO SCH ×2 (08:44→20:51)
[2023-09-12] MEDS: amLODIPine 10 MG TAB PO SCH (08:44)
[2023-09-12] MEDS: TICAGRELOR 90 MG TAB PO SCH ×2 (08:44→20:47)
[2023-09-12] MEDS: ENOXAPARIN 30 MG/0.3 ML SYRINGE SQ SCH ×2 (08:44→20:48)
[2023-09-12] MEDS: FINASTERIDE 5 MG TAB PO SCH (08:44)
[2023-09-12] MEDS: PSYLLIUM HUSK 100% 6 GM PACKET PO SCH (08:44)
[2023-09-12] MEDS: PIPERACILLIN-TAZOBACTAM 3.375 GM in SODIUM CHLORIDE 0.9% 100 ML IVPB SCH ×2 (08:45→16:11)
[2023-09-12] MEDS: ESCITALOPRAM 20 MG TAB PO SCH (08:45)
[2023-09-12] MEDS: SYMBICORT 160-4.5 MCG INHALER INHALATION SCH ×2 (09:04→20:17)
--- NOTE | 2023-09-12 09:54 | P.PN ---
Subjective Progress Note Date: 09/12/23 Principal diagnosis: Shortness of breath. I am seeing this patient in new consultation today 09/07/2023 after the patient started to have URI-like symptoms two days ago and tested positive for COVID-19 outpatient. Patient is a 72-year-old white male with past medical history si gnificant for COPD with an FEV1 53% of predicted, obstructive sleep apnea with home CPAP, hyperlipidemia, hypertension, diabetes mellitus, coronary artery disease with multiple previous stents, among other things. He does follow with Dr. Au in the pulmonary office for managment of his moderate COPD and DARLIN. Patient reportedly has received his COVID-19 vaccination and was recently boosted. Starting two days ago, the patient reports symptoms of rhinorrhea, sore throat, nonproductive cough, fevers, chills, and shortness of breath that worsened overnight. Denies any nausea, vomiting, diarrhea. Patient was reportedly started on Paxlovid by an urgent care clinic. On arrival to the emergency room, yesterday evening, he was found to be hypoxic, and placed on BiPAP with settings 12/6 and FiO2 40%. Chest x-ray showed cardiomegaly with mild pulmonary vascular congestion. No focal infiltrates. CBC on arrival was unremarkable. No leukocytosis. BMP was also unremarkable. NT proBNP not pa rticularly elevated at 258. EKG shows normal sinus rhythm without any obvious ischemic changes. Patient denies any chest pain, heart palpitations, orthopnea, lower extremity edema. Patient is currently sitting up in bed, on BiPAP with above-mentioned settings, in no acute distress. No signs of hypercapnic encephalopathy. He is achieving tidal volumes of around 350 and his respiratory rate is in the mid 20s. He continues to spike intermittent fevers with a T-max of 102.3F. Vital signs are otherwise stable. Patient was started on a combination of albuterol inhaler, Symbicort inhaler, IV Solu-Medrol. He is being monitored on the cardiac stepdown unit. Progress note dated 09/08/2023. 72-year-old male with history of coronavirus infection, and moderately severe COPD, is admitted, with complaints of shortness of breath, and cough, as well as chest congestion. The patient also had rhinorrhea, sore throat, fever, and chills. Currently, he is resting comfortably in room 356. He is currently on 6 L nasal cannula, or, BiPAP, at 12/6, and 40%. He's not receiving any IV fluids. He is much more awake and alert today, and does admit to feeling that her. White count 16, he will 12.7, hematocrit 38.9, and platelet count was normal. Sodium 136, potassium 4.1, chlorides 98, CO2 22, anion gap 16, BUN 49, and creatinine 1.38. His blood sugar is 436. Magnesium 1.6, and calcium 8.8. Progress note dated 09/09/2023. 72-year-old male admitted with a diagnosis of acute hypoxemic respiratory failure, likely secondary to COPD exacerbation. Today he seen in room 356. He is resting comfortably. He does feel better. He's currently on 6 L of oxygen by nasal cannula. At nighttime, he is using BiPAP, settings of 12/6, and 40. He's not receiving any IV fluids. Currently laboratory includes a white count 17.5, hemoglobin 12.6, hematocrit 37.3, and a platelet count of 310,000. Sodium 136, potassium 4, chlorides 97, CO2 25, BUN 50, and creatinine 1.38. Anion gap is 14. Glucose is 365. Progress note dated 09/10/2023. 72-year-old male with a diagnosis of acute hypoxemic respiratory failure secondary to COPD exacerbation. The patient is seen today in room 356. He's currently on BiPAP, with settings of 12/6, and 40%. Clinically, the patient has been improving, day by day. Laboratory data today includes a blood sugar of 289. Progress note dated 09/11/2023. 72-year-old male with a diagnosis of acute hypoxemic respiratory failure, secondary to COPD exacerbation. The patient did test positive for coronavirus, but is not thought to have coronavirus associated pneumonia. CT angiogram did not reveal the typical groundglass opacities, and, there is no evidence of pulmonary embolism. Currently, he's on 10 L high flow oxygen, and receiving saline at 50 mL an hour. At nighttime, he's on BiPAP, with settings of 12/6, and 50%. A chest x-ray is ordered today. Sodium 136, potassium 4, chlorides 98, CO2 27, BUN 46, and creatinine 1.18. Glucose 330. Calcium is 8.7. Chest x-ray show some new patchy bibasilar infiltrates. Progress note dated 09/12/2023. 72-year-old male with a diagnosis of acute hypoxemic respiratory failure, secondary to COPD exacerbation. The patient currently is on 10 L high flow oxygen. His worsening hypoxemia likely relates to bibasilar pneumonia. He is currently going to get some IV Lasix, and continues on Zosyn as an antibiotic. He is not receiving the patient's on BiPAP, at nighttime, with settings of 12/6, and 50%. No new labs today other than a glucose of 169. Objective - Vital Signs Vital signs: Vital Signs Temp 98.1 F 09/12/23 08:42 Pulse 97 09/12/23 08:42 Resp 19 09/12/23 08:42 BP 136/73 09/12/23 08:42 Pulse Ox 92 L 09/12/23 08:42 FiO2 50 09/12/23 03:46 Intake & Output 09/11/23 09/12/23 09/12/23 18:59 06:59 18:59 Intake Total 575 358 Output Total 250 800 Balance 325 -800 358 Weight 117.027 kg Intake: Oral 575 358 Output: Urine 250 800 Other: Voiding Method External Catheter External Catheter - Exam No acute distress, oriented 3. No conversational dyspnea or use of accessory muscles. Currently on 10 L high flow oxygen. HEENT examination is grossly unremarkable. Mucous membranes are moist. No oral lesions. Neck supple. Full range of motion. No adenopathy thyromegaly or neck vein distention. Cardiovascular examination reveals regular rhythm rate. S1-S2 normal. No S3 or S4. No discernible murmur noted. Heart sounds are distant. Heart rate 97 bpm. Lungs reveal scattered rhonchi, and expiratory wheezes. No crackles. Breath sounds equal bilaterally. Saturations are 92%. Abdomen soft bowel sounds are heard. No masses or tenderness. Extremities are intact. No cyanosis clubbing or edema. Skin is without rash or lesion. Neurologic examination is brief but nonfocal. - Labs CBC & Chem 7: 09/09/23 08:02 09/11/23 08:54 Labs: Abnormal Lab Results - Last 24 Hours (Table) 09/11/23 09/11/23 09/11/23 Range/Units 08:54 11:27 16:20 Sodium 136 L (137-145) mmol/L BUN 46 H (9-20) mg/dL Glucose 330 H (74-99) mg/dL POC Glucose (mg/dL) 286 H 446 H (70-110) mg/dL 09/11/23 09/12/23 Range/Units 20:01 06:19 Sodium (137-145) mmol/L BUN (9-20) mg/dL Glucose (74-99) mg/dL POC Glucose (mg/dL) 329 H 169 H (70-110) mg/dL Assessment and Plan Assessment: Acute COPD exacerbation, secondary to acute COVID-19 infection. New-onset bibasilar infiltrates, consistent with pneumonia. Acute COVID-19 infection, without evidence of pulmonary embolism, or coronavirus associated pneumonia. Moderately severe COPD, with an FEV1 that is 53% of predicted. Acute hypoxemic respiratory failure, secondary to above. Obstructive sleep apnea, on home CPAP. History of paroxysmal atrial fibrillation. Coronary artery disease with previous coronary stents Insulin-dependent diabetes mellitus. Hyperlipidemia. Benign essential hypertension. Obesity with a BMI of 37 kg/m. Former tobacco smoker. Plan: Plan dated 09/08/2023. The patient is seen today in room 356. He is much more awake and alert. He did use BiPAP last night at 12/6, and 40%. Currently, he's on 6 L nasal cannula. The patient is not having any conversational dyspnea, or use of accessory muscles. Labs, x-rays, and medications are reviewed. The patient continues on updrafts, and Solu-Medrol. We will continue to follow and make recommendations along the way. Prognosis is guarded. Plan dated 09/09/2023. The patient is seen in room 356. The patient's on 6 L of oxygen. Saturations in the low 90s. He is using BiPAP at nighttime. Clinically, he feels better. He is less short of breath. We'll continue to follow the patient, and make recommendations along the way. His medications are appropriate. Labs, x-rays, and medications are reviewed. The patient's overall prognosis remains guarded and she does have moderately severe COPD. Plan dated 09/10/2023. The patient continues to show clinical improvement, daily. Currently, he is resting on BiPAP, with settings of 12/6, and 40%. Labs, x-rays, and medications are reviewed. The patient's overall prognosis remains guarded. He does have moderately severe COPD. He did test positive for coronavirus, but does not appear to have coronavirus associated pneumonia. We will continue to follow the patient, and make recommendations along the way. Plan dated 09/11/2023. The patient will have a pro-calcitonin level ordered. In addition, we'll start the patient on Zosyn empirically. Additional recommendations and suggestions are forthcoming. His oxygen requirements are going up. There was no evidence of pulmonary embolism, are groundglass changes on previous CT angiogram. Additional recommendations and suggestions are forthcoming. Prognosis is certainly guarded. Plan dated 09/12/2023. The patient currently is on Zosyn, for suspected bibasilar pneumonia. The patient's on oxygen by high flow nasal cannula 10 L/m. At nighttime, he uses BiPAP, with settings of 12/6, and 50%. We will give him a dose of IV Lasix today, 40 mg. Labs, x-rays, and medications are reviewed. The patient's overall prognosis remains guarded. We will continue to follow and give recommendations along the way. Time with Patient: Less than 30
[2023-09-12 11:44] LABS: Glucose,Whole Blood 211 mg/dL (70-110)
--- NOTE | 2023-09-12 12:13 | P.PN ---
Subjective Progress Note Date: 09/12/23 Patient is a 72-year-old male with a PMH of COPD, paroxysmal A. fib (not on anticoagulation, unknown reason), CAD status post multiple stents, type II DM, hypertension, hyperlipidemia, BPH, and DARLIN on CPAP presented to the emergency room with complaints of URI like symptoms. In the emergency room a chest x-ray revealed findings of pulmonary venous congestion. EKG revealed sinus rhythm at [address]/T-wave changes noted as reviewed by me. Laboratory evaluation revealed a proBNP 258, d-dimer of 0.9, BUN 25, with troponin 0.021. Patient was admitted to cardiac selective with rescue BiPAP. He was started on Solu-Medrol, Symbicort, albuterol nebulizers. Pulmonology consult was obtained and their recommendations appreciated. CT angiography was obtained and while there is motion artifact, this did not show any overt evidence of heart failure, pulmonary embolism. Therefore, it was assessed that vascular congestion seen on chest x-ray was likely due to moderate inspiratory effort. Furthermore, BNP was not elevated at 258. Patient was given 1 dose of Lasix of 40 mg IV, and echocardiogram was ordered. He was started on BiPAP QHS and supplemental O2 to maintain O2 saturation > 92%. Procal was negative, no antibiotics were started. 09/08 Patient was seen and examined. Reports continued shortness of breath. Currently on 6L NC. CBC shows WBC 16, Hg 12.7. BMP Na 136, BUN 49, Cr 1.38, glucose 447. Mag 1.6. 09/09 Patient was seen and examined. Currently on 6L. Reports some lighthe adedness when standing up. CBC shows WBC 17.5, Hg 12.6. BMP Na 136, Cl 97, BUN 50, Cr 1.38, glucose 365. 09/10 Patient was seen and examined. Currently on BiPAP saturating 90%. POC glucose ranging from 255-582 over the past 24H. 09/11 Patient was seen and examined. No complaints. Currently on 10L HFNC. BMP Na 136, BUN 46, glucose 330. CXR shows new bilateral lower lobe infiltrate. Started on Zosyn. 09/12 Patient was seen and examined. Clinically unchanged. Currently on 10L HFNC. Procal is negative. Maintained on Zosyn. General: non toxic, no distress, appears at stated age Derm: warm, dry Head: atraumatic, normocephalic, symmetric Eyes: EOMI, no lid lag, anicteric sclera Cardiovascular: good distal perfusion in all 4 extremities. Lungs: breathing comfortably on 10L, no accessory muscle use Ext: no gross muscle atrophy, no edema, no contractures Neuro: no focal neuro deficits Psych: Alert, oriented, appropriate affect Acute hypoxic respiratory failure Acute COPD exacerbation Acute bacterial pneumonia Covid 19 Type 2 diabetes with hyperglycemia Leukocytosis KIRK Elevated d-dimer Chronic conditions: A-Fib, CAD, HTN, HLD, BPH Based on my assessment of this patient, this patient meets a moderate complexity level of care. Patient has an acute diagnosis of AHRF that poses a threat to life or bodily function. COVID +. Blood glucose persistent in the 400s. Acute hypoxic respiratory failure: Supplemental O2 to maintain O2 saturation > 92%. Solumedrol 60 mg IV Q6H. Telemetry monitoring. Acute COPD exacerbation: Restart Symbicort. Albuterol 2 puff INH Q2H PRN for SOB/wheezing. Acute bacterial pneumonia: Started on Zosyn. Procalcitonin negative. COVID 19: Steroids as above. Airborne precautions. Type 2 diabetes with hyperglycemia: Novolog to 35 TID with Levemir 80 BID. Continue high dose SS. Accuchecks ACHS. Leukocytosis: Related to steroid use. KIRK: Hold Lisinopril. NS at 50 cc/hr. Small pleural effusion: No tamponade on Echo. Elevated d-dimer: Related to COVID 19. I have reviewed the following data processing systems consultant notes: Pulmonology note. I have reviewed the results of the following tests: POC glucose, Pro brynn I have ordered the following tests: BMP, CBC, D-Dimer, LDH, Fibrinogen I have discussed the care of this patient with the following independent historian: I have independently interpreted the following test below: I have discussed the management of this patient with the following physician: Objective - Vital Signs Vital signs: Vital Signs Temp 97.9 F 09/12/23 04:00 Pulse 86 09/12/23 04:00 Resp 20 09/12/23 04:00 BP 173/74 09/12/23 04:00 Pulse Ox 96 09/12/23 04:00 FiO2 50 09/12/23 03:46 Intake & Output 09/11/23 09/12/23 09/12/23 18:59 06:59 18:59 Intake Total 575 Output Total 250 800 Balance 325 -800 Weight 117.027 kg Intake: Oral 575 Output: Urine 250 800 Other: Voiding Method External Catheter External Catheter - Labs CBC & Chem 7: 09/09/23 08:02 09/11/23 08:54 Labs: Abnormal Lab Results - Last 24 Hours (Table) 09/11/23 09/11/23 09/11/23 Range/Units 08:54 11:27 16:20 Sodium 136 L (137-145) mmol/L BUN 46 H (9-20) mg/dL Glucose 330 H (74-99) mg/dL POC Glucose (mg/dL) 286 H 446 H (70-110) mg/dL 09/11/23 09/12/23 Range/Units 20:01 06:19 Sodium (137-145) mmol/L BUN (9-20) mg/dL Glucose (74-99) mg/dL POC Glucose (mg/dL) 329 H 169 H (70-110) mg/dL
[2023-09-12 16:22] LABS: Glucose,Whole Blood 213 mg/dL (70-110)
[2023-09-12] MEDS: BENZOCAINE/MENTHOL LOZENG 1 EACH LOZENGE MUCOUS MEM PRN (18:50)
[2023-09-12 20:02] LABS: Glucose,Whole Blood 277 mg/dL (70-110)
[2023-09-12] MEDS: ISOSORBIDE MONONITRATE ER 60 MG TAB.ER.24H PO SCH (20:47)
[2023-09-12] MEDS: MONTELUKAST 10 MG TAB PO SCH (20:47)
[2023-09-12] MEDS: TAMSULOSIN 0.4 MG CAP.ER.24H PO SCH (20:47)
[2023-09-12] MEDS: ATORVASTATIN 20 MG TAB PO SCH (20:47)
[2023-09-12] MEDS: ARIPiprazole 10 MG TAB PO SCH (20:47)
[2023-09-12] MEDS: LATANOPROST 0.005% OPHTH DROPS 2.5 ML BTL BOTH EYES SCH (20:51)
[2023-09-13] MEDS: ALBUTEROL HFA INHALER INHALATION PRN ×2 (03:00→20:39)
[2023-09-13] MEDS: methylPREDNISolone SOD SUCCI 125 MG/2 ML VIAL IV SCH ×4 (04:36→21:09)
[2023-09-13 06:11] LABS: Glucose,Whole Blood 303 mg/dL (70-110)
[2023-09-13] MEDS: LEVOTHYROXINE 25 MCG TAB PO SCH (06:49)
[2023-09-13] MEDS: INSULIN ASPART (NovoLOG) 100 UNIT/ML VIAL SQ SCH ×7 (06:49→21:09)
[2023-09-13] MEDS: INSULIN DETEMIR (LEVEMIR) 100 UNIT/ML SYR SQ SCH ×2 (06:50→21:09)
[2023-09-13 07:04] LABS: HCT 34.5 % (39.0-53.0); HGB 11.4 gm/dL (13.0-17.5); MCH 29.8 pg (25.0-35.0); MCHC 33.1 g/dL (31.0-37.0); MCV 89.9 fL (80.0-100.0); Mean Platelet Volume 7.5; Platelet Count 334 k/uL (150-450); RBC 3.84 m/uL (4.30-5.90); RDW 13.6 % (11.5-15.5)
[2023-09-13 07:24] LABS: African American GFR (CKD) 75 (>60 ml/min/1.73 sqM); Anion Gap 11 mmol/L; Blood Urea Nitrogen 49 mg/dL (9-20); Calcium 8.4 mg/dL (8.4-10.2); Carbon Dioxide 23 mmol/L (22-30); Chloride 98 mmol/L (98-107); Glucose 280 mg/dL (74-99); LDH 417 U/L (120-246); Non-African American GFR(CKD) 65 (>60 ml/min/1.73 sqM); Potassium 4.3 mmol/L (3.5-5.1); Sodium 132 mmol/L (137-145)
[2023-09-13] MEDS: PIPERACILLIN-TAZOBACTAM 3.375 GM in SODIUM CHLORIDE 0.9% 100 ML IVPB SCH ×3 (08:43)
[2023-09-13] MEDS: ESCITALOPRAM 20 MG TAB PO SCH (08:43)
[2023-09-13] MEDS: FINASTERIDE 5 MG TAB PO SCH (08:43)
[2023-09-13] MEDS: PSYLLIUM HUSK 100% 6 GM PACKET PO SCH (08:43)
[2023-09-13] MEDS: amLODIPine 10 MG TAB PO SCH (08:44)
[2023-09-13] MEDS: FERROUS SULFATE 325 MG TAB PO SCH ×2 (08:44→21:09)
[2023-09-13] MEDS: TICAGRELOR 90 MG TAB PO SCH ×2 (08:44→21:09)
[2023-09-13] MEDS: ENOXAPARIN 30 MG/0.3 ML SYRINGE SQ SCH ×2 (08:44→21:09)
[2023-09-13] MEDS: SYMBICORT 160-4.5 MCG INHALER INHALATION SCH ×2 (08:52→20:39)
--- NOTE | 2023-09-13 09:56 | P.PN ---
Subjective Progress Note Date: 09/13/23 Principal diagnosis: Shortness of breath. I am seeing this patient in new consultation today 09/07/2023 after the patient started to have URI-like symptoms two days ago and tested positive for COVID-19 outpatient. Patient is a 72-year-old white male with past medical history si gnificant for COPD with an FEV1 53% of predicted, obstructive sleep apnea with home CPAP, hyperlipidemia, hypertension, diabetes mellitus, coronary artery disease with multiple previous stents, among other things. He does follow with Dr. Au in the pulmonary office for managment of his moderate COPD and DARLIN. Patient reportedly has received his COVID-19 vaccination and was recently boosted. Starting two days ago, the patient reports symptoms of rhinorrhea, sore throat, nonproductive cough, fevers, chills, and shortness of breath that worsened overnight. Denies any nausea, vomiting, diarrhea. Patient was reportedly started on Paxlovid by an urgent care clinic. On arrival to the emergency room, yesterday evening, he was found to be hypoxic, and placed on BiPAP with settings 12/6 and FiO2 40%. Chest x-ray showed cardiomegaly with mild pulmonary vascular congestion. No focal infiltrates. CBC on arrival was unremarkable. No leukocytosis. BMP was also unremarkable. NT proBNP not pa rticularly elevated at 258. EKG shows normal sinus rhythm without any obvious ischemic changes. Patient denies any chest pain, heart palpitations, orthopnea, lower extremity edema. Patient is currently sitting up in bed, on BiPAP with above-mentioned settings, in no acute distress. No signs of hypercapnic encephalopathy. He is achieving tidal volumes of around 350 and his respiratory rate is in the mid 20s. He continues to spike intermittent fevers with a T-max of 102.3F. Vital signs are otherwise stable. Patient was started on a combination of albuterol inhaler, Symbicort inhaler, IV Solu-Medrol. He is being monitored on the cardiac stepdown unit. Progress note dated 09/08/2023. 72-year-old male with history of coronavirus infection, and moderately severe COPD, is admitted, with complaints of shortness of breath, and cough, as well as chest congestion. The patient also had rhinorrhea, sore throat, fever, and chills. Currently, he is resting comfortably in room 356. He is currently on 6 L nasal cannula, or, BiPAP, at 12/6, and 40%. He's not receiving any IV fluids. He is much more awake and alert today, and does admit to feeling that her. White count 16, he will 12.7, hematocrit 38.9, and platelet count was normal. Sodium 136, potassium 4.1, chlorides 98, CO2 22, anion gap 16, BUN 49, and creatinine 1.38. His blood sugar is 436. Magnesium 1.6, and calcium 8.8. Progress note dated 09/09/2023. 72-year-old male admitted with a diagnosis of acute hypoxemic respiratory failure, likely secondary to COPD exacerbation. Today he seen in room 356. He is resting comfortably. He does feel better. He's currently on 6 L of oxygen by nasal cannula. At nighttime, he is using BiPAP, settings of 12/6, and 40. He's not receiving any IV fluids. Currently laboratory includes a white count 17.5, hemoglobin 12.6, hematocrit 37.3, and a platelet count of 310,000. Sodium 136, potassium 4, chlorides 97, CO2 25, BUN 50, and creatinine 1.38. Anion gap is 14. Glucose is 365. Progress note dated 09/10/2023. 72-year-old male with a diagnosis of acute hypoxemic respiratory failure secondary to COPD exacerbation. The patient is seen today in room 356. He's currently on BiPAP, with settings of 12/6, and 40%. Clinically, the patient has been improving, day by day. Laboratory data today includes a blood sugar of 289. Progress note dated 09/11/2023. 72-year-old male with a diagnosis of acute hypoxemic respiratory failure, secondary to COPD exacerbation. The patient did test positive for coronavirus, but is not thought to have coronavirus associated pneumonia. CT angiogram did not reveal the typical groundglass opacities, and, there is no evidence of pulmonary embolism. Currently, he's on 10 L high flow oxygen, and receiving saline at 50 mL an hour. At nighttime, he's on BiPAP, with settings of 12/6, and 50%. A chest x-ray is ordered today. Sodium 136, potassium 4, chlorides 98, CO2 27, BUN 46, and creatinine 1.18. Glucose 330. Calcium is 8.7. Chest x-ray show some new patchy bibasilar infiltrates. Progress note dated 09/12/2023. 72-year-old male with a diagnosis of acute hypoxemic respiratory failure, secondary to COPD exacerbation. The patient currently is on 10 L high flow oxygen. His worsening hypoxemia likely relates to bibasilar pneumonia. He is currently going to get some IV Lasix, and continues on Zosyn as an antibiotic. He is not receiving the patient's on BiPAP, at nighttime, with settings of 12/6, and 50%. No new labs today other than a glucose of 169. Progress note dated 09/13/2023. 72-year-old male with a diagnosis of acute hypoxemic respiratory failure, secondary to COPD exacerbation. Currently, he is on 10 L high flow nasal cannula. In addition, the patient's using BiPAP at nighttime, settings of 12/6, and 50%. His pro-calcitonin level was 0.06 twice. He continues on Zosyn. Clinically he feels improved. His most recent chest x-ray shows some bibasilar infiltrates. A previous CT angiogram was negative for pulmonary embolism. White count is 19, hemoglobin 11.4, hematocrit 34.5, and platelet count was 334,000. D-dimer is 0.96. Sodium 132, potassium 4.3, chlorides 98, CO2 23, BUN 49, creatinine 1.13. The most recent glucose is 303. LDH is 417. Objective - Vital Signs Vital signs: Vital Signs Temp 98 F 09/13/23 08:41 Pulse 98 09/13/23 08:41 Resp 17 09/13/23 08:41 BP 154/72 09/13/23 08:41 Pulse Ox 92 L 09/13/23 08:49 FiO2 50 09/12/23 03:46 Intake & Output 09/12/23 09/13/23 09/13/23 18:59 06:59 18:59 Intake Total 956 Output Total 1750 800 Balance -794 -800 Intake: Oral 956 Output: Urine 1750 800 Other: Voiding Method External Catheter External Catheter External Catheter # Voids 1 - Exam No acute distress, oriented 3. No conversational dyspnea or use of accessory muscles. Currently on 10 L high flow oxygen. HEENT examination is grossly unremarkable. Mucous membranes are moist. No oral lesions. Neck supple. Full range of motion. No adenopathy thyromegaly or neck vein distention. Cardiovascular examination reveals regular rhythm rate. S1-S2 normal. No S3 or S4. No discernible murmur noted. Heart sounds are distant. Heart rate 98 bpm. Lungs reveal scattered rhonchi, and expiratory wheezes. No crackles. Breath sounds equal bilaterally. Saturations are 96% on 10 L high flow, and 93% on 8 L high flow.. Abdomen soft bowel sounds are heard. No masses or tenderness. Extremities are intact. No cyanosis clubbing or edema. Skin is without rash or lesion. Neurologic examination is brief but nonfocal. - Labs CBC & Chem 7: 09/13/23 06:09 09/13/23 06:09 Labs: Abnormal Lab Results - Last 24 Hours (Table) 09/12/23 09/12/23 09/12/23 Range/Units 11:38 16:21 20:01 WBC (3.8-10.6) k/uL RBC (4.30-5.90) m/uL Hgb (13.0-17.5) gm/dL Hct (39.0-53.0) % Fibrinogen (200-500) mg/dL D-Dimer (<0.60) mg/L FEU Sodium (137-145) mmol/L BUN (9-20) mg/dL Glucose (74-99) mg/dL POC Glucose (mg/dL) 211 H 213 H 277 H (70-110) mg/dL Lactate Dehydrogenase (120-246) U/L 09/13/23 09/13/23 09/13/23 Range/Units 06:09 06:09 06:09 WBC 19.0 H (3.8-10.6) k/uL RBC 3.84 L (4.30-5.90) m/uL Hgb 11.4 L (13.0-17.5) gm/dL Hct 34.5 L (39.0-53.0) % Fibrinogen 524 H (200-500) mg/dL D-Dimer 0.96 H (<0.60) mg/L FEU Sodium 132 L (137-145) mmol/L BUN 49 H (9-20) mg/dL Glucose 280 H (74-99) mg/dL POC Glucose (mg/dL) (70-110) mg/dL Lactate Dehydrogenase 417 H (120-246) U/L 09/13/23 Range/Units 06:10 WBC (3.8-10.6) k/uL RBC (4.30-5.90) m/uL Hgb (13.0-17.5) gm/dL Hct (39.0-53.0) % Fibrinogen (200-500) mg/dL D-Dimer (<0.60) mg/L FEU Sodium (137-145) mmol/L BUN (9-20) mg/dL Glucose (74-99) mg/dL POC Glucose (mg/dL) 303 H (70-110) mg/dL Lactate Dehydrogenase (120-246) U/L Assessment and Plan Assessment: Acute COPD exacerbation, secondary to acute COVID-19 infection. New-onset bibasilar infiltrates, consistent with pneumonia, though pro- calcitonin level is normal. Acute COVID-19 infection, without evidence of pulmonary embolism, or coronavirus associated pneumonia. Moderately severe COPD, with an FEV1 that is 53% of predicted. Acute hypoxemic respiratory failure, secondary to above. Obstructive sleep apnea, on home CPAP. History of paroxysmal atrial fibrillation. Coronary artery disease with previous coronary stents Insulin-dependent diabetes mellitus. Hyperlipidemia. Benign essential hypertension. Obesity with a BMI of 37 kg/m. Former tobacco smoker. Plan: Plan dated 09/08/2023. The patient is seen today in room 356. He is much more awake and alert. He did use BiPAP last night at 12/6, and 40%. Currently, he's on 6 L nasal cannula. The patient is not having any conversational dyspnea, or use of accessory muscles. Labs, x-rays, and medications are reviewed. The patient continues on updrafts, and Solu-Medrol. We will continue to follow and make recommendations along the way. Prognosis is guarded. Plan dated 09/09/2023. The patient is seen in room 356. The patient's on 6 L of oxygen. Saturations in the low 90s. He is using BiPAP at nighttime. Clinically, he feels better. He is less short of breath. We'll continue to follow the patient, and make recommendations along the way. His medications are appropriate. Labs, x-rays, and medications are reviewed. The patient's overall prognosis remains guarded and she does have moderately severe COPD. Plan dated 09/10/2023. The patient continues to show clinical improvement, daily. Currently, he is resting on BiPAP, with settings of 12/6, and 40%. Labs, x-rays, and medications are reviewed. The patient's overall prognosis remains guarded. He does have moderately severe COPD. He did test positive for coronavirus, but does not appear to have coronavirus associated pneumonia. We will continue to follow the patient, and make recommendations along the way. Plan dated 09/11/2023. The patient will have a pro-calcitonin level ordered. In addition, we'll start the patient on Zosyn empirically. Additional recommendations and suggestions are forthcoming. His oxygen requirements are going up. There was no evidence of pulmonary embolism, are groundglass changes on previous CT angiogram. Additional recommendations and suggestions are forthcoming. Prognosis is certainly guarded. Plan dated 09/12/2023. The patient currently is on Zosyn, for suspected bibasilar pneumonia. The patient's on oxygen by high flow nasal cannula 10 L/m. At nighttime, he uses BiPAP, with settings of 12/6, and 50%. We will give him a dose of IV Lasix today, 40 mg. Labs, x-rays, and medications are reviewed. The patient's overall prognosis remains guarded. We will continue to follow and give recommendations along the way. Plan dated 09/13/2023. The patient's pro-calcitonin level is 0.06, twice, and for that reason, Zosyn will be discontinued. In addition, we will check an N-terminal proBNP, to rule out a component of fluid overload. Labs, x-rays, medications are reviewed. His oxygen was turned down from 10 L to 8 L. Saturations are between 90-93%. His other medications are appropriate. Labs, x-rays, medications are reviewed. The patient's overall prognosis remains guarded. Time with Patient: Less than 30
--- NOTE | 2023-09-13 10:54 | P.PN ---
Subjective Progress Note Date: 09/13/23 Patient is a 72-year-old male with a PMH of COPD, paroxysmal A. fib (not on anticoagulation, unknown reason), CAD status post multiple stents, type II DM, hypertension, hyperlipidemia, BPH, and DARLIN on CPAP presented to the emergency room with complaints of URI like symptoms. In the emergency room a chest x-ray revealed findings of pulmonary venous congestion. EKG revealed sinus rhythm at [address]/T-wave changes noted as reviewed by me. Laboratory evaluation revealed a proBNP 258, d-dimer of 0.9, BUN 25, with troponin 0.021. Patient was admitted to cardiac selective with rescue BiPAP. He was started on Solu-Medrol, Symbicort, albuterol nebulizers. Pulmonology consult was obtained and their recommendations appreciated. CT angiography was obtained and while there is motion artifact, this did not show any overt evidence of heart failure, pulmonary embolism. Therefore, it was assessed that vascular congestion seen on chest x-ray was likely due to moderate inspiratory effort. Furthermore, BNP was not elevated at 258. Patient was given 1 dose of Lasix of 40 mg IV, and echocardiogram was ordered. He was started on BiPAP QHS and supplemental O2 to maintain O2 saturation > 92%. Procal was negative, no antibiotics were started. 09/08 Patient was seen and examined. Reports continued shortness of breath. Currently on 6L NC. CBC shows WBC 16, Hg 12.7. BMP Na 136, BUN 49, Cr 1.38, glucose 447. Mag 1.6. 09/09 Patient was seen and examined. Currently on 6L. Reports some lighthe adedness when standing up. CBC shows WBC 17.5, Hg 12.6. BMP Na 136, Cl 97, BUN 50, Cr 1.38, glucose 365. 09/10 Patient was seen and examined. Currently on BiPAP saturating 90%. POC glucose ranging from 255-582 over the past 24H. 09/11 Patient was seen and examined. No complaints. Currently on 10L HFNC. BMP Na 136, BUN 46, glucose 330. CXR shows new bilateral lower lobe infiltrate. Started on Zosyn. 09/12 Patient was seen and examined. Clinically unchanged. Currently on 10L HFNC. Procal is negative. Maintained on Zosyn. 09/13 Patient was seen and examined. Clinically unchanged. Currently on 10L HFNC. CBC WBC 19, Hg 11.4. Fibrinogen 524. D-Dimer 0.96. BMP BUN 49, glucose 280. LDH 417. General: non toxic, no distress, appears at stated age Derm: warm, dry Head: atraumatic, normocephalic, symmetric Eyes: EOMI, no lid lag, anicteric sclera Cardiovascular: good distal perfusion in all 4 extremities. Lungs: breathing comfortably on 10L, no accessory muscle use Ext: no gross muscle atrophy, no edema, no contractures Neuro: no focal neuro deficits Psych: Alert, oriented, appropriate affect Acute hypoxic respiratory failure Acute COPD exacerbation Acute bacterial pneumonia COVID 19 Type 2 diabetes with hyperglycemia Leukocytosis Prerenal azotemia Elevated D-Dimer Chronic conditions: A-Fib, CAD, HTN, HLD, BPH Based on my assessment of this patient, this patient meets a high complexity level of care. Patient has an acute diagnosis of AHRF that poses a threat to life or bodily function. COVID +. Blood glucose persistent in the 400s. Acute hypoxic respiratory failure: Supplemental O2 to maintain O2 saturation > 92%. Solumedrol 60 mg IV Q6H. Telemetry monitoring. Acute COPD exacerbation: Symbicort INH BID. Albuterol 2 puff INH Q2H PRN for SOB/wheezing. Acute bacterial pneumonia: Continue Zosyn. Procalcitonin negative. COVID 19: Steroids as above. Airborne precautions. Type 2 diabetes with hyperglycemia: Increased Novolog to 45 TID with Levemir 80 BID. Continue high dose SS. Accuchecks ACHS. Leukocytosis: Related to steroid use. Prerenal azotemia: Hold Lisinopril. NS at 50 cc/hr. Small pleural effusion: No tamponade on Echo. Elevated D-Dimer: Related to COVID 19. I have reviewed the following datapower consultant notes: Pulmonology note. I have reviewed the results of the following tests: POC glucose, BMP, D-Dimer, LDH, Fibrinogen. I have ordered the following tests: BMP, CBC I have discussed the care of this patient with the following independent historian: I have independently interpreted the following test below: I have discussed the management of this patient with the following physician: This patient meets a high level of care for the following reasons: Patient requires adjustments in insulin which requires intensive monitoring for hypoglycemic episodes. Patient requires escalation of supplemental oxygen which requires intensive monitoring for hypoxia and respiratory depression. Objective - Vital Signs Vital signs: Vital Signs Temp 97.9 F 09/13/23 04:00 Pulse 85 09/13/23 04:00 Resp 18 09/13/23 04:00 BP 133/68 09/13/23 04:00 Pulse Ox 91 L 09/13/23 04:00 FiO2 50 09/12/23 03:46 Intake & Output 09/12/23 09/13/23 09/13/23 18:59 06:59 18:59 Intake Total 956 Output Total 1750 800 Balance -794 -800 Intake: Oral 956 Output: Urine 1750 800 Other: Voiding Method External Catheter External Catheter # Voids 1 - Labs CBC & Chem 7: 09/13/23 06:09 09/13/23 06:09 Labs: Abnormal Lab Results - Last 24 Hours (Table) 09/12/23 09/12/23 09/12/23 Range/Units 11:38 16:21 20:01 WBC (3.8-10.6) k/uL RBC (4.30-5.90) m/uL Hgb (13.0-17.5) gm/dL Hct (39.0-53.0) % Fibrinogen (200-500) mg/dL D-Dimer (<0.60) mg/L FEU Sodium (137-145) mmol/L BUN (9-20) mg/dL Glucose (74-99) mg/dL POC Glucose (mg/dL) 211 H 213 H 277 H (70-110) mg/dL Lactate Dehydrogenase (120-246) U/L 09/13/23 09/13/23 09/13/23 Range/Units 06:09 06:09 06:09 WBC 19.0 H (3.8-10.6) k/uL RBC 3.84 L (4.30-5.90) m/uL Hgb 11.4 L (13.0-17.5) gm/dL Hct 34.5 L (39.0-53.0) % Fibrinogen 524 H (200-500) mg/dL D-Dimer 0.96 H (<0.60) mg/L FEU Sodium 132 L (137-145) mmol/L BUN 49 H (9-20) mg/dL Glucose 280 H (74-99) mg/dL POC Glucose (mg/dL) (70-110) mg/dL Lactate Dehydrogenase 417 H (120-246) U/L 09/13/23 Range/Units 06:10 WBC (3.8-10.6) k/uL RBC (4.30-5.90) m/uL Hgb (13.0-17.5) gm/dL Hct (39.0-53.0) % Fibrinogen (200-500) mg/dL D-Dimer (<0.60) mg/L FEU Sodium (137-145) mmol/L BUN (9-20) mg/dL Glucose (74-99) mg/dL POC Glucose (mg/dL) 303 H (70-110) mg/dL Lactate Dehydrogenase (120-246) U/L
[2023-09-13 11:51] LABS: Glucose,Whole Blood 319 mg/dL (70-110)
[2023-09-13] MEDS: SODIUM CHLORIDE 0.9% 1,000 ML IV SCH ×2 (16:05)
[2023-09-13 16:34] LABS: Glucose,Whole Blood 413 mg/dL (70-110)
[2023-09-13 20:10] LABS: Glucose,Whole Blood 378 mg/dL (70-110)
[2023-09-13] MEDS: ARIPiprazole 10 MG TAB PO SCH (21:09)
[2023-09-13] MEDS: TAMSULOSIN 0.4 MG CAP.ER.24H PO SCH (21:09)
[2023-09-13] MEDS: ISOSORBIDE MONONITRATE ER 60 MG TAB.ER.24H PO SCH (21:09)
[2023-09-13] MEDS: ATORVASTATIN 20 MG TAB PO SCH (21:09)
[2023-09-13] MEDS: MONTELUKAST 10 MG TAB PO SCH (21:09)
[2023-09-13] MEDS: LATANOPROST 0.005% OPHTH DROPS 2.5 ML BTL BOTH EYES SCH (21:10)
[2023-09-14] MEDS: BENZOCAINE/MENTHOL LOZENG 1 EACH LOZENGE MUCOUS MEM PRN (00:03)
[2023-09-14] MEDS: methylPREDNISolone SOD SUCCI 125 MG/2 ML VIAL IV SCH ×4 (04:35→21:12)
[2023-09-14 06:16] LABS: Glucose,Whole Blood 310 mg/dL (70-110)
[2023-09-14] MEDS: INSULIN DETEMIR (LEVEMIR) 100 UNIT/ML SYR SQ SCH ×2 (06:37→21:12)
[2023-09-14] MEDS: INSULIN ASPART (NovoLOG) 100 UNIT/ML VIAL SQ SCH ×7 (06:37→21:12)
[2023-09-14] MEDS: LEVOTHYROXINE 25 MCG TAB PO SCH (06:37)
[2023-09-14] MEDS: SYMBICORT 160-4.5 MCG INHALER INHALATION SCH ×2 (07:46→20:32)
[2023-09-14] MEDS: amLODIPine 10 MG TAB PO SCH (08:56)
[2023-09-14] MEDS: FERROUS SULFATE 325 MG TAB PO SCH ×2 (08:56→21:11)
[2023-09-14] MEDS: TICAGRELOR 90 MG TAB PO SCH ×2 (08:56→21:11)
[2023-09-14] MEDS: FINASTERIDE 5 MG TAB PO SCH (08:56)
[2023-09-14] MEDS: ENOXAPARIN 30 MG/0.3 ML SYRINGE SQ SCH ×2 (08:56→21:11)
[2023-09-14] MEDS: ESCITALOPRAM 20 MG TAB PO SCH (08:56)
[2023-09-14] MEDS: PSYLLIUM HUSK 100% 6 GM PACKET PO SCH (08:56)
--- NOTE | 2023-09-14 11:05 | P.PN ---
Subjective Progress Note Date: 09/14/23 Patient is a 72-year-old male with a PMH of COPD, paroxysmal A. fib (not on anticoagulation, unknown reason), CAD status post multiple stents, type II DM, hypertension, hyperlipidemia, BPH, and DARLIN on CPAP presented to the emergency room with complaints of URI like symptoms. In the emergency room a chest x-ray revealed findings of pulmonary venous congestion. EKG revealed sinus rhythm at [address]/T-wave changes noted as reviewed by me. Laboratory evaluation revealed a proBNP 258, d-dimer of 0.9, BUN 25, with troponin 0.021. Patient was admitted to cardiac selective with rescue BiPAP. He was started on Solu-Medrol, Symbicort, albuterol nebulizers. Pulmonology consult was obtained and their recommendations appreciated. CT angiography was obtained and while there is motion artifact, this did not show any overt evidence of heart failure, pulmonary embolism. Therefore, it was assessed that vascular congestion seen on chest x-ray was likely due to moderate inspiratory effort. Furthermore, BNP was not elevated at 258. Patient was given 1 dose of Lasix of 40 mg IV, and echocardiogram was ordered. He was started on BiPAP QHS and supplemental O2 to maintain O2 saturation > 92%. Procal was negative, no antibiotics were started. 09/08 Patient was seen and examined. Reports continued shortness of breath. Currently on 6L NC. CBC shows WBC 16, Hg 12.7. BMP Na 136, BUN 49, Cr 1.38, glucose 447. Mag 1.6. 09/09 Patient was seen and examined. Currently on 6L. Reports some lighthe adedness when standing up. CBC shows WBC 17.5, Hg 12.6. BMP Na 136, Cl 97, BUN 50, Cr 1.38, glucose 365. 09/10 Patient was seen and examined. Currently on BiPAP saturating 90%. POC glucose ranging from 255-582 over the past 24H. 09/11 Patient was seen and examined. No complaints. Currently on 10L HFNC. BMP Na 136, BUN 46, glucose 330. CXR shows new bilateral lower lobe infiltrate. Started on Zosyn. 09/12 Patient was seen and examined. Clinically unchanged. Currently on 10L HFNC. Procal is negative. Maintained on Zosyn. 09/13 Patient was seen and examined. Clinically unchanged. Currently on 10L HFNC. CBC WBC 19, Hg 11.4. Fibrinogen 524. D-Dimer 0.96. BMP BUN 49, glucose 280. LDH 417. 09/14 Patient was seen and examined. No complaints. Currently on 8L HFNC. Pro- brynn negative x 2 thus Zosyn discontinued. BNP 158. POC glucose 303-413 over the past 24H. General: non toxic, no distress, appears at stated age Derm: warm, dry Head: atraumatic, normocephalic, symmetric Eyes: EOMI, no lid lag, anicteric sclera Cardiovascular: good distal perfusion in all 4 extremities. Lungs: breathing comfortably on 8L, no accessory muscle use Ext: no gross muscle atrophy, no edema, no contractures Neuro: no focal neuro deficits Psych: Alert, oriented, appropriate affect Acute hypoxic respiratory failure Acute COPD exacerbation COVID 19 Type 2 diabetes with hyperglycemia Leukocytosis Prerenal azotemia Elevated D-Dimer Chronic conditions: A-Fib, CAD, HTN, HLD, BPH Based on my assessment of this patient, this patient meets a high complexity level of care. Patient has an acute diagnosis of AHRF that poses a threat to life or bodily function. COVID +. Blood glucose persistent in the 400s. Acute hypoxic respiratory failure: Supplemental O2 to maintain O2 saturation > 92%. Solumedrol 60 mg IV Q6H. Telemetry monitoring. Acute COPD exacerbation: Symbicort INH BID. Albuterol 2 puff INH Q2H PRN for SOB/wheezing. COVID 19: Steroids as above. Airborne precautions. Type 2 diabetes with hyperglycemia: Increased Novolog to 45 TID with Levemir 90 BID. Continue high dose SS. Accuchecks ACHS. Leukocytosis: Related to steroid use. Prerenal azotemia: Hold Lisinopril. NS at 50 cc/hr. Small pleural effusion: No tamponade on Echo. Elevated D-Dimer: Related to COVID 19. I have reviewed the following dynamics ax consultant notes: Pulmonology note. I have reviewed the results of the following tests: BNP, POC glucose I have ordered the following tests: I have discussed the care of this patient with the following independent historian: I have independently interpreted the following test below: I have discussed the management of this patient with the following physician: This patient meets a high level of care for the following reasons: Patient requires adjustments in insulin which requires intensive monitoring for hypoglycemic episodes. Patient requires escalation of supplemental oxygen which requires intensive monitoring for hypoxia and respiratory depression. Objective - Vital Signs Vital signs: Vital Signs Temp 97.8 F 09/14/23 04:00 Pulse 85 09/14/23 04:00 Resp 19 09/14/23 04:00 BP 128/75 09/14/23 04:00 Pulse Ox 94 L 09/14/23 07:49 FiO2 50 09/12/23 03:46 Intake & Output 09/13/23 09/14/23 09/14/23 18:59 06:59 18:59 Intake Total 898 Output Total 700 1000 Balance 198 -1000 Intake: Oral 898 Output: Urine 700 1000 Other: Voiding Method External Catheter External Catheter - Labs CBC & Chem 7: 09/13/23 06:09 09/13/23 06:09 Labs: Abnormal Lab Results - Last 24 Hours (Table) 09/13/23 09/13/23 09/13/23 Range/Units 11:49 16:33 20:09 POC Glucose (mg/dL) 319 H 413 H 378 H (70-110) mg/dL 09/14/23 Range/Units 06:14 POC Glucose (mg/dL) 310 H (70-110) mg/dL
[2023-09-14] MEDS: ALBUTEROL HFA INHALER INHALATION PRN ×2 (11:27→20:33)
[2023-09-14 11:38] LABS: Glucose,Whole Blood 285 mg/dL (70-110)
[2023-09-14] MEDS: SODIUM CHLORIDE 0.9% 1,000 ML IV SCH (12:19)
--- NOTE | 2023-09-14 12:40 | P.PN ---
Subjective Progress Note Date: 09/14/23 I am seeing this patient in new consultation today 09/07/2023 after the patient started to have URI-like symptoms two days ago and tested positive for COVID-19 outpatient. Patient is a 72-year-old white male with past medical history significant for COPD with an FEV1 53% of predicted, obstructive sleep apnea with home CPAP, hyperlipidemia, hypertension, diabetes mellitus, coronary artery disease with multiple previous stents, among other things. He does follow with Dr. Au in the pulmonary office for managment of his moderate COPD and DARLIN. Patient reportedly has received his COVID-19 vaccination and was recently boosted. Starting two days ago, the patient reports symptoms of rhinorrhea, sor e throat, nonproductive cough, fevers, chills, and shortness of breath that worsened overnight. Denies any nausea, vomiting, diarrhea. Patient was reportedly started on Paxlovid by an urgent care clinic. On arrival to the emergency room, yesterday evening, he was found to be hypoxic, and placed on BiPAP with settings 12/6 and FiO2 40%. Chest x-ray showed cardiomegaly with mild pulmonary vascular congestion. No focal infiltrates. CBC on arrival was unremarkable. No leukocytosis. BMP was also unremarkable. NT proBNP not particularly elevated at 258. EKG shows normal sinus rhythm without any obvious ischemic changes. Patient denies any chest pain, heart palpitations, orthopnea, lower extremity edema. Patient is currently sitting up in bed, on BiPAP with above-mentioned settings, in no acute distress. No signs of hypercapnic encephalopathy. He is achieving tidal volumes of around 350 and his respiratory rate is in the mid 20s. He continues to spike intermittent fevers with a T-max of 102.3F. Vital signs are otherwise stable. Patient was started on a combination of albuterol inhaler, Symbicort inhaler, IV Solu-Medrol. He is being monitored on the cardiac stepdown unit. Progress note dated 09/08/2023. 72-year-old male with history of coronavirus infection, and moderately severe COPD, is admitted, with complaints of shortness of breath, and cough, as well as chest congestion. The patient also had rhinorrhea, sore throat, fever, and chills. Currently, he is resting comfortably in room 356. He is currently on 6 L nasal cannula, or, BiPAP, at 12/6, and 40%. He's not receiving any IV fluids. He is much more awake and alert today, and does admit to feeling that her. White count 16, he will 12.7, hematocrit 38.9, and platelet count was normal. Sodium 136, potassium 4.1, chlorides 98, CO2 22, anion gap 16, BUN 49, and creatinine 1.38. His blood sugar is 436. Magnesium 1.6, and calcium 8.8. Progress note dated 09/09/2023. 72-year-old male admitted with a diagnosis of acute hypoxemic respiratory failure, likely secondary to COPD exacerbation. Today he seen in room 356. He is resting comfortably. He does feel better. He's currently on 6 L of oxygen by nasal cannula. At nighttime, he is using BiPAP, settings of 12/6, and 40. He's not receiving any IV fluids. Currently laboratory includes a white count 17.5, hemoglobin 12.6, hematocrit 37.3, and a platelet count of 310,000. Sodium 136, potassium 4, chlorides 97, CO2 25, BUN 50, and creatinine 1.38. Anion gap is 14. Glucose is 365. Progress note dated 09/10/2023. 72-year-old male with a diagnosis of acute hypoxemic respiratory failure secondary to COPD exacerbation. The patient is seen today in room 356. He's currently on BiPAP, with settings of 12/6, and 40%. Clinically, the patient has been improving, day by day. Laboratory data today includes a blood sugar of 289. Progress note dated 09/11/2023. 72-year-old male with a diagnosis of acute hypoxemic respiratory failure, secondary to COPD exacerbation. The patient did test positive for coronavirus, but is not thought to have coronavirus associated pneumonia. CT angiogram did not reveal the typical groundglass opacities, and, there is no evidence of pulmonary embolism. Currently, he's on 10 L high flow oxygen, and receiving saline at 50 mL an hour. At nighttime, he's on BiPAP, with settings of 12/6, and 50%. A chest x-ray is ordered today. Sodium 136, potassium 4, chlorides 98, CO2 27, BUN 46, and creatinine 1.18. Glucose 330. Calcium is 8.7. Chest x-ray show some new patchy bibasilar infiltrates. Progress note dated 09/12/2023. 72-year-old male with a diagnosis of acute hypoxemic respiratory failure, secondary to COPD exacerbation. The patient currently is on 10 L high flow oxygen. His worsening hypoxemia likely relates to bibasilar pneumonia. He is currently going to get some IV Lasix, and continues on Zosyn as an antibiotic. He is not receiving the patient's on BiPAP, at nighttime, with settings of 12/6, and 50%. No new labs today other than a glucose of 169. On today's evaluation of 09/14/2023, the patient is being seen for a follow-up. The patient was restless for an acute choked exacerbation in patient also has an acute Covid 19 infection. He did have some bibasilar pulmonary infiltrates. Nevertheless, his pro calcitonin level has been within normal limits. He is kno wn to have COPD with an FEV1 of 53% of predicted. He also has obstructive sleep apnea. He has not utilizes BiPAP overnight. This morning, the patient is on 8 L of oxygen by nasal cannula with a pulse ox of 94%. No nausea. No emesis. He is weak and he has a congested cough. The most recent labs are from yesterday. The echoes at 19 with a hemoglobin 11.4 and a platelet count of 334. BUN is 49 with a creatinine of 1.1 and sodium levels is 132. The patient remains on Levemir insulin 90 units twice a day along with NovoLog 45 units with meals and a slice Coverage. The patient remains on IV Solu-Medrol 60 mg every 6 hours. He remains on enteral HFA 4 times a day and Symbicort as maintenance. Objective - Vital Signs Vital signs: Vital Signs Temp 97.6 F 09/14/23 08:00 Pulse 95 09/14/23 08:00 Resp 18 09/14/23 08:00 BP 153/54 09/14/23 08:00 Pulse Ox 94 L 09/14/23 08:00 FiO2 50 09/12/23 03:46 Intake & Output 09/13/23 09/14/23 09/14/23 18:59 06:59 18:59 Intake Total 898 Output Total 700 1000 Balance 198 -1000 Intake: Oral 898 Output: Urine 700 1000 Other: Voiding Method External Catheter External Catheter - Exam No acute distress, oriented 3. No conversational dyspnea or use of accessory muscles. Currently on 8 L high flow oxygen. HEENT examination is grossly unremarkable. Mucous membranes are moist. No oral lesions. Neck supple. Full range of motion. No adenopathy thyromegaly or neck vein distention. Cardiovascular examination reveals regular rhythm rate. S1-S2 normal. No S3 or S4. No discernible murmur noted. Heart sounds are distant. Lungs reveal scattered rhonchi, and expiratory wheezes. No crackles. Breath sounds equal bilaterally. Abdomen soft bowel sounds are heard. No masses or tenderness. Extremities are intact. No cyanosis clubbing or edema. Skin is without rash or lesion. Neurologic examination is brief but nonfocal. - Labs CBC & Chem 7: 09/13/23 06:09 09/13/23 06:09 Labs: Abnormal Lab Results - Last 24 Hours (Table) 09/13/23 09/13/23 09/13/23 Range/Units 11:49 16:33 20:09 POC Glucose (mg/dL) 319 H 413 H 378 H (70-110) mg/dL 09/14/23 Range/Units 06:14 POC Glucose (mg/dL) 310 H (70-110) mg/dL Assessment and Plan Plan: Acute COPD exacerbation, secondary to acute COVID-19 infection. Acute hypoxic respiratory failure and the patient is currently on 8 L of O2 nasal cannula New-onset bibasilar infiltrates, consistent with pneumonia, though pro- calcitonin level is normal. Acute COVID-19 infection, without evidence of pulmonary embolism, or coronavirus associated pneumonia. Moderately severe COPD, with an FEV1 that is 53% of predicted. Acute hypoxemic respiratory failure, secondary to above. Obstructive sleep apnea, on home CPAP. History of paroxysmal atrial fibrillation. Coronary artery disease with previous coronary stents Insulin-dependent diabetes mellitus. Hyperlipidemia. Benign essential hypertension. Obesity with a BMI of 37 kg/m. Former tobacco smoker. Plan: On today's evaluation, the patient is feeling better. He has been weaned down to 8 L of oxygen by nasal cannula. We'll titrate FiO2 to maintain saturation above 90%. Continue Symbicort Continue Ventolin HFA 4 times a day [id number] BiPAP is currently on standby Continue IV Solu-Medrol and gradually start tapering off of the next 24-48 hours Blood sugar management with Levemir insulin 90 units twice a day and NovoLog 45 units with meals Incentive spirometer Pro calcitonin level has been low Zosyn was discontinued Lovenox 30 mg subcu every 12 hours Home medications have been resumed We'll continue to follow
[2023-09-14 16:22] LABS: Glucose,Whole Blood 329 mg/dL (70-110)
[2023-09-14 20:38] LABS: Glucose,Whole Blood 299 mg/dL (70-110)
[2023-09-14] MEDS: TAMSULOSIN 0.4 MG CAP.ER.24H PO SCH (21:10)
[2023-09-14] MEDS: ISOSORBIDE MONONITRATE ER 60 MG TAB.ER.24H PO SCH (21:10)
[2023-09-14] MEDS: ATORVASTATIN 20 MG TAB PO SCH (21:11)
[2023-09-14] MEDS: ARIPiprazole 10 MG TAB PO SCH (21:11)
[2023-09-14] MEDS: MONTELUKAST 10 MG TAB PO SCH (21:11)
[2023-09-14] MEDS: LATANOPROST 0.005% OPHTH DROPS 2.5 ML BTL BOTH EYES SCH (21:16)
[2023-09-15] MEDS: BENZOCAINE/MENTHOL LOZENG 1 EACH LOZENGE MUCOUS MEM PRN (02:04)
[2023-09-15] MEDS: methylPREDNISolone SOD SUCCI 125 MG/2 ML VIAL IV SCH ×2 (04:51→08:56)
[2023-09-15 05:03] LABS: Glucose,Whole Blood 340 mg/dL (70-110)
[2023-09-15] MEDS: LEVOTHYROXINE 25 MCG TAB PO SCH (06:08)
[2023-09-15] MEDS: INSULIN ASPART (NovoLOG) 100 UNIT/ML VIAL SQ SCH ×7 (06:08→21:19)
[2023-09-15] MEDS: SODIUM CHLORIDE 0.9% 1,000 ML IV SCH (06:46)
[2023-09-15] MEDS: INSULIN DETEMIR (LEVEMIR) 100 UNIT/ML SYR SQ SCH ×2 (06:47→21:19)
[2023-09-15] MEDS: ALBUTEROL HFA INHALER INHALATION PRN ×2 (08:30→20:38)
[2023-09-15] MEDS: SYMBICORT 160-4.5 MCG INHALER INHALATION SCH ×2 (08:30→20:36)
[2023-09-15] MEDS: TICAGRELOR 90 MG TAB PO SCH ×2 (08:55→21:18)
[2023-09-15] MEDS: ESCITALOPRAM 20 MG TAB PO SCH (08:55)
[2023-09-15] MEDS: FINASTERIDE 5 MG TAB PO SCH (08:55)
[2023-09-15] MEDS: PSYLLIUM HUSK 100% 6 GM PACKET PO SCH (08:55)
[2023-09-15] MEDS: FERROUS SULFATE 325 MG TAB PO SCH ×2 (08:55→21:18)
[2023-09-15] MEDS: ENOXAPARIN 30 MG/0.3 ML SYRINGE SQ SCH ×2 (08:55→21:18)
[2023-09-15] MEDS: amLODIPine 10 MG TAB PO SCH (08:55)
--- NOTE | 2023-09-15 10:52 | P.PN ---
Subjective Progress Note Date: 09/15/23 I am seeing this patient in new consultation today 09/07/2023 after the patient started to have URI-like symptoms two days ago and tested positive for COVID-19 outpatient. Patient is a 72-year-old white male with past medical history significant for COPD with an FEV1 53% of predicted, obstructive sleep apnea with home CPAP, hyperlipidemia, hypertension, diabetes mellitus, coronary artery disease with multiple previous stents, among other things. He does follow with Dr. Au in the pulmonary office for managment of his moderate COPD and DARLIN. Patient reportedly has received his COVID-19 vaccination and was recently boosted. Starting two days ago, the patient reports symptoms of rhinorrhea, sor e throat, nonproductive cough, fevers, chills, and shortness of breath that worsened overnight. Denies any nausea, vomiting, diarrhea. Patient was reportedly started on Paxlovid by an urgent care clinic. On arrival to the emergency room, yesterday evening, he was found to be hypoxic, and placed on BiPAP with settings 12/6 and FiO2 40%. Chest x-ray showed cardiomegaly with mild pulmonary vascular congestion. No focal infiltrates. CBC on arrival was unremarkable. No leukocytosis. BMP was also unremarkable. NT proBNP not particularly elevated at 258. EKG shows normal sinus rhythm without any obvious ischemic changes. Patient denies any chest pain, heart palpitations, orthopnea, lower extremity edema. Patient is currently sitting up in bed, on BiPAP with above-mentioned settings, in no acute distress. No signs of hypercapnic encephalopathy. He is achieving tidal volumes of around 350 and his respiratory rate is in the mid 20s. He continues to spike intermittent fevers with a T-max of 102.3F. Vital signs are otherwise stable. Patient was started on a combination of albuterol inhaler, Symbicort inhaler, IV Solu-Medrol. He is being monitored on the cardiac stepdown unit. Progress note dated 09/08/2023. 72-year-old male with history of coronavirus infection, and moderately severe COPD, is admitted, with complaints of shortness of breath, and cough, as well as chest congestion. The patient also had rhinorrhea, sore throat, fever, and chills. Currently, he is resting comfortably in room 356. He is currently on 6 L nasal cannula, or, BiPAP, at 12/6, and 40%. He's not receiving any IV fluids. He is much more awake and alert today, and does admit to feeling that her. White count 16, he will 12.7, hematocrit 38.9, and platelet count was normal. Sodium 136, potassium 4.1, chlorides 98, CO2 22, anion gap 16, BUN 49, and creatinine 1.38. His blood sugar is 436. Magnesium 1.6, and calcium 8.8. Progress note dated 09/09/2023. 72-year-old male admitted with a diagnosis of acute hypoxemic respiratory failure, likely secondary to COPD exacerbation. Today he seen in room 356. He is resting comfortably. He does feel better. He's currently on 6 L of oxygen by nasal cannula. At nighttime, he is using BiPAP, settings of 12/6, and 40. He's not receiving any IV fluids. Currently laboratory includes a white count 17.5, hemoglobin 12.6, hematocrit 37.3, and a platelet count of 310,000. Sodium 136, potassium 4, chlorides 97, CO2 25, BUN 50, and creatinine 1.38. Anion gap is 14. Glucose is 365. Progress note dated 09/10/2023. 72-year-old male with a diagnosis of acute hypoxemic respiratory failure secondary to COPD exacerbation. The patient is seen today in room 356. He's currently on BiPAP, with settings of 12/6, and 40%. Clinically, the patient has been improving, day by day. Laboratory data today includes a blood sugar of 289. Progress note dated 09/11/2023. 72-year-old male with a diagnosis of acute hypoxemic respiratory failure, secondary to COPD exacerbation. The patient did test positive for coronavirus, but is not thought to have coronavirus associated pneumonia. CT angiogram did not reveal the typical groundglass opacities, and, there is no evidence of pulmonary embolism. Currently, he's on 10 L high flow oxygen, and receiving saline at 50 mL an hour. At nighttime, he's on BiPAP, with settings of 12/6, and 50%. A chest x-ray is ordered today. Sodium 136, potassium 4, chlorides 98, CO2 27, BUN 46, and creatinine 1.18. Glucose 330. Calcium is 8.7. Chest x-ray show some new patchy bibasilar infiltrates. Progress note dated 09/12/2023. 72-year-old male with a diagnosis of acute hypoxemic respiratory failure, secondary to COPD exacerbation. The patient currently is on 10 L high flow oxygen. His worsening hypoxemia likely relates to bibasilar pneumonia. He is currently going to get some IV Lasix, and continues on Zosyn as an antibiotic. He is not receiving the patient's on BiPAP, at nighttime, with settings of 12/6, and 50%. No new labs today other than a glucose of 169. On today's evaluation of 09/14/2023, the patient is being seen for a follow-up. The patient was restless for an acute choked exacerbation in patient also has an acute Covid 19 infection. He did have some bibasilar pulmonary infiltrates. Nevertheless, his pro calcitonin level has been within normal limits. He is kno wn to have COPD with an FEV1 of 53% of predicted. He also has obstructive sleep apnea. He has not utilizes BiPAP overnight. This morning, the patient is on 8 L of oxygen by nasal cannula with a pulse ox of 94%. No nausea. No emesis. He is weak and he has a congested cough. The most recent labs are from yesterday. The echoes at 19 with a hemoglobin 11.4 and a platelet count of 334. BUN is 49 with a creatinine of 1.1 and sodium levels is 132. The patient remains on Levemir insulin 90 units twice a day along with NovoLog 45 units with meals and a slice Coverage. The patient remains on IV Solu-Medrol 60 mg every 6 hours. He remains on enteral HFA 4 times a day and Symbicort as maintenance. On 09/15/2023, seeing the patient for a follow-up. He is stable. Slightly less short of breath compared to yesterday. Is currently being treated for an acute COPD exacerbation Covid 19 infection. He remains on 8 L of oxygen by nasal cannula. He should be able to weaned off. His serum insulin for elevated blood sugar and steroid-induced hyperglycemia. I'm going to discontinue the IV Sonneman also the patient prednisone burst taper. His pulse ox is 96% on 8 L of oxygen by nasal cannula. He has an incentive spirometer. No chest pain. He is doing Symbicort 2 puffs twice daily and albuterol HFA 4 times a day. No altered mentation. No chest pain. Is comfortable congested. Objective - Vital Signs Vital signs: Vital Signs Temp 98 F 09/15/23 04:00 Pulse 87 09/15/23 04:00 Resp 18 09/15/23 04:00 BP 167/77 09/15/23 04:00 Pulse Ox 94 L 09/15/23 08:30 FiO2 50 09/12/23 03:46 Intake & Output 09/14/23 09/15/23 09/15/23 18:59 06:59 18:59 Intake Total 1860 120 Output Total 1325 500 Balance 535 -500 120 Intake: Intake, IV Titration 600 Amount Sodium Chloride 0.9% 1, 600 000 ml @ 50 mls/hr IV . Q20H [facility] Rx#:[id number] Oral 1260 120 Output: Urine 1325 500 Other: Voiding Method External Catheter External Catheter # Voids 1 - Exam No acute distress, oriented 3. No conversational dyspnea or use of accessory muscles. Currently on 8 L high flow oxygen. HEENT examination is grossly unremarkable. Mucous membranes are moist. No oral lesions. Neck supple. Full range of motion. No adenopathy thyromegaly or neck vein distention. Cardiovascular examination reveals regular rhythm rate. S1-S2 normal. No S3 or S4. No discernible murmur noted. Heart sounds are distant. Lungs reveal scattered rhonchi, and expiratory wheezes. No crackles. Breath s ounds equal bilaterally. Abdomen soft bowel sounds are heard. No masses or tenderness. Extremities are intact. No cyanosis clubbing or edema. Skin is without rash or lesion. Neurologic examination is brief but nonfocal. - Labs CBC & Chem 7: 09/13/23 06:09 09/13/23 06:09 Labs: Abnormal Lab Results - Last 24 Hours (Table) 09/14/23 09/14/23 09/14/23 Range/Units 11:36 16:20 20:29 POC Glucose (mg/dL) 285 H 329 H 299 H (70-110) mg/dL 09/15/23 Range/Units 05:02 POC Glucose (mg/dL) 340 H (70-110) mg/dL Assessment and Plan Plan: Acute COPD exacerbation, secondary to acute COVID-19 infection. Acute hypoxic respiratory failure and the patient is currently on 8 L of O2 nasal cannula New-onset bibasilar infiltrates, consistent with pneumonia, though pro- calcitonin level is normal. Acute COVID-19 infection, without evidence of pulmonary embolism, or coronavirus associated pneumonia. Moderately severe COPD, with an FEV1 that is 53% of predicted. Acute hypoxemic respiratory failure, secondary to above. Obstructive sleep apnea, on home CPAP. History of paroxysmal atrial fibrillation. Coronary artery disease with previous coronary stents Insulin-dependent diabetes mellitus. Hyperlipidemia. Benign essential hypertension. Obesity with a BMI of 37 kg/m. Former tobacco smoker. Plan: Clinically improving /Shortness of breath compared to yesterday Discontinue IV Solu-Medrol and start the patient a prednisone burst taper On today's evaluation, the patient is feeling better. He has been weaned down to 8 L of oxygen by nasal cannula. We'll titrate FiO2 to maintain saturation above 90%. In fact his pulse ox is around 96% Continue Symbicort Continue Ventolin HFA 4 times a day [id number] Emre is currently on standby Blood sugar management with Levemir insulin 90 units twice a day and NovoLog 45 units with meals Incentive spirometer Pro calcitonin level has been low Zosyn was discontinued Lovenox 30 mg subcu every 12 hours Home medications have been resumed We'll continue to follow
[2023-09-15 11:48] LABS: Glucose,Whole Blood 312 mg/dL (70-110)
[2023-09-15] MEDS: predniSONE 20 MG TAB PO SCH (12:04)
--- NOTE | 2023-09-15 12:38 | P.PN ---
Subjective Progress Note Date: 09/15/23 Patient is a 72-year-old male with a PMH of COPD, paroxysmal A. fib (not on anticoagulation, unknown reason), CAD status post multiple stents, type II DM, hypertension, hyperlipidemia, BPH, and DARLIN on CPAP presented to the emergency room with complaints of URI like symptoms. In the emergency room a chest x-ray revealed findings of pulmonary venous congestion. EKG revealed sinus rhythm at [address]/T-wave changes noted as reviewed by me. Laboratory evaluation revealed a proBNP 258, d-dimer of 0.9, BUN 25, with troponin 0.021. Patient was admitted to cardiac selective with rescue BiPAP. He was started on Solu-Medrol, Symbicort, albuterol nebulizers. Pulmonology consult was obtained and their recommendations appreciated. CT angiography was obtained and while there is motion artifact, this did not show any overt evidence of heart failure, pulmonary embolism. Therefore, it was assessed that vascular congestion seen on chest x-ray was likely due to moderate inspiratory effort. Furthermore, BNP was not elevated at 258. Patient was given 1 dose of Lasix of 40 mg IV, and echocardiogram was ordered. He was started on BiPAP QHS and supplemental O2 to maintain O2 saturation > 92%. Procal was negative, no antibiotics were started. 09/08 Patient was seen and examined. Reports continued shortness of breath. Currently on 6L NC. CBC shows WBC 16, Hg 12.7. BMP Na 136, BUN 49, Cr 1.38, glucose 447. Mag 1.6. 09/09 Patient was seen and examined. Currently on 6L. Reports some lighthe adedness when standing up. CBC shows WBC 17.5, Hg 12.6. BMP Na 136, Cl 97, BUN 50, Cr 1.38, glucose 365. 09/10 Patient was seen and examined. Currently on BiPAP saturating 90%. POC glucose ranging from 255-582 over the past 24H. 09/11 Patient was seen and examined. No complaints. Currently on 10L HFNC. BMP Na 136, BUN 46, glucose 330. CXR shows new bilateral lower lobe infiltrate. Started on Zosyn. 09/12 Patient was seen and examined. Clinically unchanged. Currently on 10L HFNC. Procal is negative. Maintained on Zosyn. 09/13 Patient was seen and examined. Clinically unchanged. Currently on 10L HFNC. CBC WBC 19, Hg 11.4. Fibrinogen 524. D-Dimer 0.96. BMP BUN 49, glucose 280. LDH 417. 09/14 Patient was seen and examined. No complaints. Currently on 8L HFNC. Pro- brynn negative x 2 thus Zosyn discontinued. BNP 158. POC glucose 303-413 over the past 24H. 09/15 Patient was seen and examined. No complaints. Currently on 6L HFNC. POC glucose 285-340 over the past 24H. Solumedrol switched to Prednisone by Pulmonology. General: non toxic, no distress, appears at stated age Derm: warm, dry Head: atraumatic, normocephalic, symmetric Eyes: EOMI, no lid lag, anicteric sclera Cardiovascular: good distal perfusion in all 4 extremities. Lungs: breathing comfortably on 6L, no accessory muscle use Ext: no gross muscle atrophy, no edema, no contractures Neuro: no focal neuro deficits Psych: Alert, oriented, appropriate affect Acute hypoxic respiratory failure Acute COPD exacerbation COVID 19 Type 2 diabetes with hyperglycemia Leukocytosis Prerenal azotemia Elevated D-Dimer Chronic conditions: A-Fib, CAD, HTN, HLD, BPH Based on my assessment of this patient, this patient meets a high complexity level of care. Patient has an acute diagnosis of AHRF that poses a threat to life or bodily fu nction. COVID +. Blood glucose persistent in the 400s. Acute hypoxic respiratory failure: Supplemental O2 to maintain O2 saturation > 92%. Solumedrol switched to Prednisone. Telemetry monitoring. Acute COPD exacerbation: Symbicort INH BID. Albuterol 2 puff INH Q2H PRN for SOB/wheezing. COVID 19: Steroids as above. Airborne precautions. Type 2 diabetes with hyperglycemia: Decrease Novolog to 40 TID with Levemir 80 BID. Expect insulin requirement to drop given discontinuation of SoluMedrol. Continue high dose SS. Accuchecks ACHS. Leukocytosis: Related to steroid use. Prerenal azotemia: Hold Lisinopril. NS at 50 cc/hr. Small pleural effusion: No tamponade on Echo. Elevated D-Dimer: Related to COVID 19. I have reviewed the following outside sales consultant notes: Pulmonology note. I have reviewed the results of the following tests: POC glucose I have ordered the following tests: I have discussed the care of this patient with the following independent historian: I have independently interpreted the following test below: I have discussed the management of this patient with the following physician: This patient meets a high level of care for the following reasons: Patient requires adjustments in insulin which requires intensive monitoring for hypoglycemic episodes. Patient requires escalation of supplemental oxygen which requires intensive monitoring for hypoxia and respiratory depression. Objective - Vital Signs Vital signs: Vital Signs Temp 97.6 F 09/15/23 12:00 Pulse 94 09/15/23 12:00 Resp 20 09/15/23 12:00 BP 165/72 09/15/23 12:00 Pulse Ox 94 L 09/15/23 12:00 FiO2 50 09/12/23 03:46 Intake & Output 09/14/23 09/15/23 09/15/23 18:59 06:59 18:59 Intake Total 1860 120 Output Total 1325 500 Balance 535 -500 120 Intake: Intake, IV Titration 600 Amount Sodium Chloride 0.9% 1, 600 000 ml @ 50 mls/hr IV . Q20H [facility] Rx#:[id number] Oral 1260 120 Output: Urine 1325 500 Other: Voiding Method External Catheter External Catheter External Catheter # Voids 1 - Labs CBC & Chem 7: 09/13/23 06:09 09/13/23 06:09 Labs: Abnormal Lab Results - Last 24 Hours (Table) 09/14/23 09/14/23 09/15/23 Range/Units 16:20 20:29 05:02 POC Glucose (mg/dL) 329 H 299 H 340 H (70-110) mg/dL 09/15/23 Range/Units 11:47 POC Glucose (mg/dL) 312 H (70-110) mg/dL
[2023-09-15 16:43] LABS: Glucose,Whole Blood 401 mg/dL (70-110)
[2023-09-15] MEDS ORDERED: INSULIN ASPART (NovoLOG) 100 UNIT/ML VIAL SQ SCH (17:30)
[2023-09-15] MEDS ORDERED: INSULIN DETEMIR (LEVEMIR) 100 UNIT/ML SYR SQ SCH (21:00)
[2023-09-15 21:01] LABS: Glucose,Whole Blood 316 mg/dL (70-110)
[2023-09-15] MEDS: MONTELUKAST 10 MG TAB PO SCH (21:18)
[2023-09-15] MEDS: ISOSORBIDE MONONITRATE ER 60 MG TAB.ER.24H PO SCH (21:18)
[2023-09-15] MEDS: TAMSULOSIN 0.4 MG CAP.ER.24H PO SCH (21:18)
[2023-09-15] MEDS: ARIPiprazole 10 MG TAB PO SCH (21:18)
[2023-09-15] MEDS: ATORVASTATIN 20 MG TAB PO SCH (21:18)
[2023-09-15] MEDS: LATANOPROST 0.005% OPHTH DROPS 2.5 ML BTL BOTH EYES SCH (22:24)
[2023-09-16] MEDS: SODIUM CHLORIDE 0.9% 1,000 ML IV SCH (02:37)
[2023-09-16 06:27] LABS: Glucose,Whole Blood 183 mg/dL (70-110)
[2023-09-16] MEDS: LEVOTHYROXINE 25 MCG TAB PO SCH (06:39)
[2023-09-16] MEDS: INSULIN DETEMIR (LEVEMIR) 100 UNIT/ML SYR SQ SCH (06:39)
[2023-09-16] MEDS: INSULIN ASPART (NovoLOG) 100 UNIT/ML VIAL SQ SCH ×6 (06:55→16:58)
[2023-09-16] MEDS: SYMBICORT 160-4.5 MCG INHALER INHALATION SCH ×2 (08:31→20:41)
[2023-09-16] MEDS: ALBUTEROL HFA INHALER INHALATION PRN ×3 (08:31→20:41)
[2023-09-16] MEDS: ENOXAPARIN 30 MG/0.3 ML SYRINGE SQ SCH (08:45)
[2023-09-16] MEDS: predniSONE 20 MG TAB PO SCH (08:45)
[2023-09-16] MEDS: ESCITALOPRAM 20 MG TAB PO SCH (08:45)
[2023-09-16] MEDS: FINASTERIDE 5 MG TAB PO SCH (08:45)
[2023-09-16] MEDS: PSYLLIUM HUSK 100% 6 GM PACKET PO SCH (08:46)
[2023-09-16] MEDS: FERROUS SULFATE 325 MG TAB PO SCH (08:46)
[2023-09-16] MEDS: amLODIPine 10 MG TAB PO SCH (08:46)
[2023-09-16] MEDS: TICAGRELOR 90 MG TAB PO SCH (08:46)
[2023-09-16 12:15] LABS: Glucose,Whole Blood 219 mg/dL (70-110)
[2023-09-16 12:54] VITALS: RESP 18
--- NOTE | 2023-09-16 15:20 | P.PN ---
Subjective Progress Note Date: 09/16/23 I am seeing this patient in new consultation today 09/07/2023 after the patient started to have URI-like symptoms two days ago and tested positive for COVID-19 outpatient. Patient is a 72-year-old white male with past medical history significant for COPD with an FEV1 53% of predicted, obstructive sleep apnea with home CPAP, hyperlipidemia, hypertension, diabetes mellitus, coronary artery disease with multiple previous stents, among other things. He does follow with Dr. Au in the pulmonary office for managment of his moderate COPD and DARLIN. Patient reportedly has received his COVID-19 vaccination and was recently boosted. Starting two days ago, the patient reports symptoms of rhinorrhea, sor e throat, nonproductive cough, fevers, chills, and shortness of breath that worsened overnight. Denies any nausea, vomiting, diarrhea. Patient was reportedly started on Paxlovid by an urgent care clinic. On arrival to the emergency room, yesterday evening, he was found to be hypoxic, and placed on BiPAP with settings 12/6 and FiO2 40%. Chest x-ray showed cardiomegaly with mild pulmonary vascular congestion. No focal infiltrates. CBC on arrival was unremarkable. No leukocytosis. BMP was also unremarkable. NT proBNP not particularly elevated at 258. EKG shows normal sinus rhythm without any obvious ischemic changes. Patient denies any chest pain, heart palpitations, orthopnea, lower extremity edema. Patient is currently sitting up in bed, on BiPAP with above-mentioned settings, in no acute distress. No signs of hypercapnic encephalopathy. He is achieving tidal volumes of around 350 and his respiratory rate is in the mid 20s. He continues to spike intermittent fevers with a T-max of 102.3F. Vital signs are otherwise stable. Patient was started on a combination of albuterol inhaler, Symbicort inhaler, IV Solu-Medrol. He is being monitored on the cardiac stepdown unit. Progress note dated 09/08/2023. 72-year-old male with history of coronavirus infection, and moderately severe COPD, is admitted, with complaints of shortness of breath, and cough, as well as chest congestion. The patient also had rhinorrhea, sore throat, fever, and chills. Currently, he is resting comfortably in room 356. He is currently on 6 L nasal cannula, or, BiPAP, at 12/6, and 40%. He's not receiving any IV fluids. He is much more awake and alert today, and does admit to feeling that her. White count 16, he will 12.7, hematocrit 38.9, and platelet count was normal. Sodium 136, potassium 4.1, chlorides 98, CO2 22, anion gap 16, BUN 49, and creatinine 1.38. His blood sugar is 436. Magnesium 1.6, and calcium 8.8. Progress note dated 09/09/2023. 72-year-old male admitted with a diagnosis of acute hypoxemic respiratory failure, likely secondary to COPD exacerbation. Today he seen in room 356. He is resting comfortably. He does feel better. He's currently on 6 L of oxygen by nasal cannula. At nighttime, he is using BiPAP, settings of 12/6, and 40. He's not receiving any IV fluids. Currently laboratory includes a white count 17.5, hemoglobin 12.6, hematocrit 37.3, and a platelet count of 310,000. Sodium 136, potassium 4, chlorides 97, CO2 25, BUN 50, and creatinine 1.38. Anion gap is 14. Glucose is 365. Progress note dated 09/10/2023. 72-year-old male with a diagnosis of acute hypoxemic respiratory failure secondary to COPD exacerbation. The patient is seen today in room 356. He's currently on BiPAP, with settings of 12/6, and 40%. Clinically, the patient has been improving, day by day. Laboratory data today includes a blood sugar of 289. Progress note dated 09/11/2023. 72-year-old male with a diagnosis of acute hypoxemic respiratory failure, secondary to COPD exacerbation. The patient did test positive for coronavirus, but is not thought to have coronavirus associated pneumonia. CT angiogram did not reveal the typical groundglass opacities, and, there is no evidence of pulmonary embolism. Currently, he's on 10 L high flow oxygen, and receiving saline at 50 mL an hour. At nighttime, he's on BiPAP, with settings of 12/6, and 50%. A chest x-ray is ordered today. Sodium 136, potassium 4, chlorides 98, CO2 27, BUN 46, and creatinine 1.18. Glucose 330. Calcium is 8.7. Chest x-ray show some new patchy bibasilar infiltrates. Progress note dated 09/12/2023. 72-year-old male with a diagnosis of acute hypoxemic respiratory failure, secondary to COPD exacerbation. The patient currently is on 10 L high flow oxygen. His worsening hypoxemia likely relates to bibasilar pneumonia. He is currently going to get some IV Lasix, and continues on Zosyn as an antibiotic. He is not receiving the patient's on BiPAP, at nighttime, with settings of 12/6, and 50%. No new labs today other than a glucose of 169. On today's evaluation of 09/14/2023, the patient is being seen for a follow-up. The patient was restless for an acute choked exacerbation in patient also has an acute Covid 19 infection. He did have some bibasilar pulmonary infiltrates. Nevertheless, his pro calcitonin level has been within normal limits. He is kno wn to have COPD with an FEV1 of 53% of predicted. He also has obstructive sleep apnea. He has not utilizes BiPAP overnight. This morning, the patient is on 8 L of oxygen by nasal cannula with a pulse ox of 94%. No nausea. No emesis. He is weak and he has a congested cough. The most recent labs are from yesterday. The echoes at 19 with a hemoglobin 11.4 and a platelet count of 334. BUN is 49 with a creatinine of 1.1 and sodium levels is 132. The patient remains on Levemir insulin 90 units twice a day along with NovoLog 45 units with meals and a slice Coverage. The patient remains on IV Solu-Medrol 60 mg every 6 hours. He remains on enteral HFA 4 times a day and Symbicort as maintenance. On 09/15/2023, seeing the patient for a follow-up. He is stable. Slightly less short of breath compared to yesterday. Is currently being treated for an acute COPD exacerbation Covid 19 infection. He remains on 8 L of oxygen by nasal cannula. He should be able to weaned off. His serum insulin for elevated blood sugar and steroid-induced hyperglycemia. I'm going to discontinue the IV Sonneman also the patient prednisone burst taper. His pulse ox is 96% on 8 L of oxygen by nasal cannula. He has an incentive spirometer. No chest pain. He is doing Symbicort 2 puffs twice daily and albuterol HFA 4 times a day. No altered mentation. No chest pain. Is comfortable congested. On 09/16/2023, the patient is being seen for a follow-up. He is using the incentive spirometer aggressively. The patient has been weaned down to 5 L and later on down to 2 L maintaining a pulse ox of 91%. On room air, his pulse ox is low at 84%. He will likely need home O2. No new labs from today. I took this patient off the IV Solu-Medrol yesterday and started him on prednisone burst taper starting with 40 mg. No chest pain. No pleurisy. No hemoptysis 2 no altered mentation. Remains on Symbicort. Remains on Lipitor HFA. Tolerating diet. No nausea or vomiting. No other significant events overnight. Objective - Vital Signs Vital signs: Vital Signs Temp 97.9 F 09/16/23 08:44 Pulse 70 09/16/23 08:44 Resp 20 09/16/23 08:44 BP 127/74 09/16/23 08:44 Pulse Ox 92 L 09/16/23 08:44 FiO2 50 09/12/23 03:46 Intake & Output 09/15/23 09/16/23 09/16/23 18:59 06:59 18:59 Intake Total 360 240 118 Output Total 500 1550 Balance -140 -1310 118 Intake: Oral 360 240 118 Output: Urine 500 1550 Other: Voiding Method External Catheter External Catheter External Catheter # Voids 2 - Exam No acute distress, oriented 3. No conversational dyspnea or use of accessory muscles. Currently on 2 L high flow oxygen. HEENT examination is grossly unremarkable. Mucous membranes are moist. No oral lesions. Neck supple. Full range of motion. No adenopathy thyromegaly or neck vein distention. Cardiovascular examination reveals regular rhythm rate. S1-S2 normal. No S3 or S4. No discernible murmur noted. Heart sounds are distant. Lungs reveal scattered rhonchi, and expiratory wheezes. No crackles. Breath sounds equal bilaterally. Abdomen soft bowel sounds are heard. No masses or tenderness. Extremities are intact. No cyanosis clubbing or edema. Skin is without rash or lesion. Neurologic examination is brief but nonfocal. - Labs CBC & Chem 7: 09/13/23 06:09 09/13/23 06:09 Labs: Abnormal Lab Results - Last 24 Hours (Table) 09/15/23 09/15/23 09/15/23 Range/Units 11:47 16:42 20:59 POC Glucose (mg/dL) 312 H 401 H 316 H (70-110) mg/dL 09/16/23 Range/Units 06:15 POC Glucose (mg/dL) 183 H (70-110) mg/dL Assessment and Plan Plan: Acute COPD exacerbation, secondary to acute COVID-19 infection. Clinically improving Acute hypoxic respiratory failure and the patient is currently on 2 L of oxygen by nasal cannula and adduction patient is improved New-onset bibasilar infiltrates, consistent with pneumonia, though pro- calcitonin level is normal. Acute COVID-19 infection, without evidence of pulmonary embolism, or coronavirus associated pneumonia. Moderately severe COPD, with an FEV1 that is 53% of predicted. Acute hypoxemic respiratory failure, secondary to above. Obstructive sleep apnea, on home CPAP. History of paroxysmal atrial fibrillation. Coronary artery disease with previous coronary stents Insulin-dependent diabetes mellitus. Hyperlipidemia. Benign essential hypertension. Obesity with a BMI of 37 kg/m. Former tobacco smoker. Plan: Clinically improving, continue aggressive pulmonary toileting and use of incentive spirometer Prednisone burst taper starting with 40 mg On today's evaluation, the patient is feeling better. He has been weaned down to 8 L of oxygen by nasal cannula. We'll titrate FiO2 to maintain saturation above 90%. In fact his pulse ox is around 96% oxygenation is improved and the patient is currently on 2 L of oxygen nasal cannula Continue Symbicort Continue Ventolin HFA 4 times a day [id number] BiPAP is currently on standby Blood sugar management with Levemir insulin 90 units twice a day and NovoLog 45 units with meals, Blood sugar control is improved as the patient has been taken off the IV Solu-Medrol Incentive spirometer Pro calcitonin level has been low Antibiotic course has been completed Arrange home O2 Lovenox 30 mg subcu every 12 hours Home medications have been resumed We'll continue to follow
--- NOTE | 2023-09-16 15:40 | P.DS ---
Providers Date of admission: 09/06/23 21:21 Expected date of discharge: 09/16/23 Attending physician: Salvador Woodard MD Consults: 09/06/23 21:20 Consult Physician Urgent Consulting Provider: Tatiana Austin Consult Reason/Comments: Acute respiratory insufficiency, Covid positive Do you want consulting provider notified?: Yes Primary care physician: [facility] Hospital Course: Discharge Diagnosis: Acute hypoxic respiratory failure now chronic respiratory failure due to COPD Acute COPD exacerbation COVID 19 Pneumonia Type 2 diabetes with hyperglycemia Leukocytosis Prerenal azotemia Elevated D-Dimer Chronic conditions: A-Fib, CAD, HTN, HLD, BPH Hospital Course: Patient is a 72-year-old male with known COPD, DARLIN with uses CPAP and oxygen at night, A. fib not on an anticoagulation, CAD, diabetes, hypertension, and dyslipidemia who presented with upper respiratory like symptoms. He was seen at the urgent care and diagnosed with COVID-19. On arrival he had a T-max of 102.3. Chest x-ray revealed pulmonary venous congestion. Laboratory analysis was remarkable for d-dimer of 0.9, BNP 258, BUN 25 and troponin of 0.21. Patient was subsequently admitted. He was started on Solu-Medrol 60 IV every 6 hours and pulmonary was consulted. He developed requiring rescue BiPAP. He underwent a CTA of the chest which showed no overt pulmonary embolism. He was given 1 dose of Lasix. Echocardiogram was completed as a limited echo due to his COVID-19 positivity but showed an ejection fraction of 55-60%. He was continued on steroids and bronchodilators. He had a slow improvement in his respiratory status. During his hospital stay he did struggle with hyperglycemia and his long and short acting insulins were adjusted. He was eating and drinking well. He is moving well with therapy, he did require an walker gait instability and need for help with balance and fatigue. He is determined stable for discharge home. Follow-up: Patient will be discharged home with home health on 2 L of oxygen around the clock. He will follow up with the [facility] in 1-2 days, he will follow up with Dr. Au next week. Will complete a prednisone taper at home. Decreased lisinopril to 10 mg BID. Until prednisone is completed please increase NovoLog to 20 units with breakfast and dinner and 35 units with lunch Patient seen and examined at bedside. Doing well. Feels his breathing is manageable at home. He feels comfortable with oxygen. He is agreeable to home health. Vital signs reviewed and stable. General: nontoxic, no distress, appears at stated age Cardiovascular: S1S2 reg, no murmur, positive posterior tibial pulse bilateral, Lungs: Coarse breath sounds bilateral, no rhonchi, no rales , no accessory muscle use Abdominal: soft, nontender to palpation, no guarding, no appreciable organomegaly Ext: no gross muscle atrophy, no edema b/l lower extremities, no contractures Neuro: CN II-XI grossly intact, no focal neuro deficits Psych: Alert, oriented, appropriate affect A total of 35 minutes of time were spent preparing this complex discharge summary. Patient was discharged on 09/16/23. This dictation was prepared using [email or web address] voice recognition software. Though every attempt is made to correct errors during dictation some may still exist. Patient Condition at Discharge: Stable Plan - Discharge Summary Discharge Rx Participant: Yes New Discharge Prescriptions: New predniSONE [Deltasone] See Rx Instructions .ROUTE .COMPLEX #14 tab Budesonide-Formot 160-4.5 Mcg [Symbicort 160-4.5 Mcg Inhaler] 2 puff INHALATION RT-BID #1 each Continue Montelukast [Singulair] 10 mg PO HS Isosorbide Mononitrate ER [Imdur] 30 mg PO HS #30 tab.er.24h Ferrous Sulfate [Feosol] 325 mg PO BID #60 tablet Insulin Detemir (Levemir) [Levemir] 80 unit SQ BID Ticagrelor [Brilinta] 90 mg PO BID Levothyroxine Sodium [Synthroid] 25 mcg PO DAILY Finasteride [Proscar] 5 mg PO DAILY Escitalopram [Lexapro] 20 mg PO DAILY ARIPiprazole [Abilify] 10 mg PO HS Latanoprost [Latanoprost 0.005%] 1 drop BOTH EYES HS Psyllium Husk 100% [Metamucil Packet] 6 gm PO DAILY amLODIPine [Norvasc] 10 mg PO DAILY Fluticasone Propion/Salmeterol [Wixela 250-50 Inhub] 1 puff INHALATION RT-BID Tamsulosin [Flomax] 0.8 mg PO HS Nitroglycerin Sl Tabs [Nitrostat] 0.4 mg SUBLINGUAL Q5M PRN PRN Reason: Chest Pain Atorvastatin [Lipitor] 20 mg PO HS Changed INSULIN ASPART (NovoLOG) [NovoLOG (formulary)] 35 unit SQ AC-LUNCH #0 lisinopriL [Prinivil] 10 mg PO BID #0 INSULIN ASPART (NovoLOG) [NovoLOG (formulary)] 20 unit SQ AC-BID #0 Discharge Medication List Montelukast [Singulair] 10 mg PO HS 11/20/16 [History] Isosorbide Mononitrate ER [Imdur] 30 mg PO HS #30 tab.er.24h 09/01/17 [Rx] Ferrous Sulfate [Feosol] 325 mg PO BID #60 tablet 12/30/18 [Rx] Insulin Detemir (Levemir) [Levemir] 80 unit SQ BID 09/06/19 [History] ARIPiprazole [Abilify] 10 mg PO HS 09/07/23 [History] Atorvastatin [Lipitor] 20 mg PO HS 09/07/23 [History] Escitalopram [Lexapro] 20 mg PO DAILY 09/07/23 [History] Finasteride [Proscar] 5 mg PO DAILY 09/07/23 [History] Fluticasone Propion/Salmeterol [Wixela 250-50 Inhub] 1 puff INHALATION RT-BID 09/07/23 [History] Latanoprost [Latanoprost 0.005%] 1 drop BOTH EYES HS 09/07/23 [History] Levothyroxine Sodium [Synthroid] 25 mcg PO DAILY 09/07/23 [History] Nitroglycerin Sl Tabs [Nitrostat] 0.4 mg SUBLINGUAL Q5M PRN 09/07/23 [History] Psyllium Husk 100% [Metamucil Packet] 6 gm PO DAILY 09/07/23 [History] Tamsulosin [Flomax] 0.8 mg PO HS 09/07/23 [History] Ticagrelor [Brilinta] 90 mg PO BID 09/07/23 [History] amLODIPine [Norvasc] 10 mg PO DAILY 09/07/23 [History] Budesonide-Formot 160-4.5 Mcg [Symbicort 160-4.5 Mcg Inhaler] 2 puff INHALATION RT-BID #1 each 11/15/23 [Rx] INSULIN ASPART (NovoLOG) [NovoLOG (formulary)] 20 unit SQ AC-BID #0 09/16/23 [Rx] INSULIN ASPART (NovoLOG) [NovoLOG (formulary)] 35 unit SQ AC-LUNCH #0 09/16/23 [Rx] lisinopriL [Prinivil] 10 mg PO BID #0 09/16/23 [Rx] predniSONE [Deltasone] See Rx Instructions .ROUTE .COMPLEX #14 tab 09/16/23 [Rx] Follow up Appointment(s)/Referral(s): Coby Dillon NPC [Nurse Practitioner] - 1-2 days Residential Home,Health [NON-STAFF] - Activity/Diet/Wound Care/Special Instructions: Activity: As tolerated with walker. Diet: Heart Healthy, Consistent carb Special Instructions: You had severe COVID-19 and therefore your COVID isolation should continue for 20 days from symptom onset. Continue to use your oxygen around the clock. Until prednisone is completed please increase NovoLog to 20 units with breakfast and dinner and 35 units with lunch
[2023-09-16 16:48] LABS: Glucose,Whole Blood 186 mg/dL (70-110)
[2023-09-16 17:14] VITALS: BP 169/74; PULSE 95; TEMP 98
== END 2023-09-16 23:35 | disposition home or self-care (01) | DRG 177 ==
LOC: EC 17:51 → 6NMEDSUR 21:20 → OBSVTOIN 21:21 → 6NMEDSUR 22:08 → 3SCARD 22:41
PROVIDERS: ADMIT Internal Medicine; ATTEND Internal Medicine
PROC: 5A09357 Assistance with Respiratory Ventilation, Less than 24 Consecutive Hours, Continuous Positive Airway Pressure (ICD-10-PCS; principal; 2023-09-11)
DX: U07.1 COVID-19 (principal); J12.82 Pneumonia due to coronavirus disease 2019; J96.21 Acute and chronic respiratory failure with hypoxia; J15.9 Unspecified bacterial pneumonia; J81.0 Acute pulmonary edema; J44.0 Chronic obstructive pulmonary disease with (acute) lower respiratory infection; J44.1 Chronic obstructive pulmonary disease with (acute) exacerbation; N17.9 Acute kidney failure, unspecified; E78.5 Hyperlipidemia, unspecified; I25.10 Atherosclerotic heart disease of native coronary artery without angina pectoris; G47.33 Obstructive sleep apnea (adult) (pediatric); E66.9 Obesity, unspecified; N40.0 Benign prostatic hyperplasia without lower urinary tract symptoms; Z68.37 Body mass index [BMI] 37.0-37.9, adult; I11.9 Hypertensive heart disease without heart failure; I48.0 Paroxysmal atrial fibrillation; F31.9 Bipolar disorder, unspecified; Z95.5 Presence of coronary angioplasty implant and graft; Z79.4 Long term (current) use of insulin; Z87.891 Personal history of nicotine dependence; Z79.51 Long term (current) use of inhaled steroids; Z79.82 Long term (current) use of aspirin; Z79.899 Other long term (current) drug therapy; Z91.51 Personal history of suicidal behavior; T38.0X5A Adverse effect of glucocorticoids and synthetic analogues, initial encounter
CPT/HCPCS: 36415; 71045; 71046; 71275; 80048; 80053; 83036; 83605; 83615; 83735; 83880; 84145; 84484; 85025; 85027; 85379; 85384; 87636; 93005; 93308; 94640; 94660; 94760; 96374; 96375; 99285

== ENCOUNTER → 2023-10-15 | Outpatient (CLI) | payer OTHER, MEDICARE ==
[2023-10-15 15:41] LABS: HCT 32.2 % (39.6-50.0); HGB 10.3 g/dL (13.0-17.0); MCH 29.3 pg (27.0-32.0); MCV 91.7 FL (80.0-97.0); Mean Platelet Volume 9.5 FL (9.5-12.2); NRBC Per 100 WBC 0 X 10*3/uL (0.00-0.01); Platelet Count 398 X 10*3/uL (140-440); RBC 3.51 X 10*6/uL (4.40-5.60); RDW 14.8 % (11.5-14.5); WBC 10.97 X 10*3/uL (4.50-10.00)
[2023-10-15 15:49] LABS: % Iron Saturation 12.5 (15.00-50.00)
[2023-10-15 16:32] LABS: Basophils # (A) 0.08 X 10*3/uL (0.00-0.10); Basophils % (A) 0.7 %; Eosinophils # (A) 0.06 X 10*3/uL (0.04-0.35); Eosinophils % (A) 0.5 %; Lymphocytes # (A) 0.99 X 10*3/uL (0.90-5.00); Monocytes # (A) 1.67 X 10*3/uL (0.20-1.00); Monocytes % (A) 15.2 %; RBC Morphology Normal (Normal)
[2023-10-15 18:31] LABS: Appearance,Urine Clear (Clear); Bilirubin,Urine Negative (Negative); Blood,Urine Negative (Negative); Color,Urine Yellow (Yellow); Ketones,Urine Negative (Negative); Nitrite,Urine Negative (Negative); Specific Gravity,Urine 1.012 (1.001-1.030); Urobilinogen,Urine 0.2 E.U./DL
== END | disposition home or self-care (01) ==
LOC: LABWHC1 11:59
PROVIDERS: ATTEND Nurse Practitioner Acute Care
DX: D64.9 Anemia, unspecified (principal)
CPT/HCPCS: 36415; 81003; 82607; 83540; 83550; 85025

== ENCOUNTER → 2024-09-14 | Outpatient (CLI) | payer OTHER, MEDICARE ==
[2024-09-15 03:25] LABS: ALT 33 U/L (10-49); AST 31 U/L (14-35); Chol/HDL Ratio 3.61 Ratio; LDL Cholesterol,Calculated 68.3 mg/dL (0.0-131.0)
== END | disposition home or self-care (01) ==
LOC: LABWHC1 15:35
PROVIDERS: ATTEND Internal Medicine Interventional Cardiology
DX: E78.2 Mixed hyperlipidemia (principal)
CPT/HCPCS: 36415; 80061; 84450; 84460

== ENCOUNTER → 2025-01-23 | Outpatient (CLI) | payer OTHER ==
[2025-01-23 15:34] LABS: Chol/HDL Ratio 3.56 Ratio; LDL Cholesterol,Calculated 65.3 mg/dL (0.0-131.0)
== END | disposition home or self-care (01) ==
LOC: LABWHC1 11:12
PROVIDERS: ATTEND Internal Medicine Interventional Cardiology
DX: E78.2 Mixed hyperlipidemia (principal)
CPT/HCPCS: 36415; 80061

== ENCOUNTER → 2025-05-19 | Outpatient (CLI) | payer OTHER ==
[2025-05-19 20:21] LABS: Basophils # (A) 0.06 X 10*3/uL (0.00-0.10); Basophils % (A) 0.8 %; Eosinophils # (A) 0.24 X 10*3/uL (0.04-0.35); Eosinophils % (A) 3.3 %; HCT 36.2 % (39.6-50.0); HGB 11.9 g/dL (13.0-17.0); Immature Grans, Automated 0.60 %; Lymphocytes # (A) 1.26 X 10*3/uL (0.90-5.00); Lymphocytes % (A) 17.5 %; MCH 29.8 pg (27.0-32.0); MCHC 32.9 g/dL (32.0-37.0); MCV 90.5 FL (80.0-97.0); Monocytes # (A) 0.85 X 10*3/uL (0.20-1.00); Monocytes % (A) 11.8 %; NRBC Per 100 WBC 0 X 10*3/uL (0.00-0.01); Neutrophils # (A) 4.75 X 10*3/uL (1.80-7.70); Neutrophils % (A) 66.0 %; Platelet Count 274 X 10*3/uL (140-440); RBC 4.00 X 10*6/uL (4.40-5.60); RDW 14.7 % (11.5-14.5); WBC 7.20 X 10*3/uL (4.50-10.00)
[2025-05-19 21:04] LABS: ALT 45 U/L (10-49); AST 42 U/L (14-35); Albumin 4.2 g/dL (3.8-4.9); Albumin/Globulin Ratio 1.91 Ratio (1.60-3.17); Alkaline Phosphatase 84 U/L (41-126); Anion Gap 12.60 mmol/L (4.00-12.00); BUN/Creat Ratio 15.50 Ratio (12.00-20.00); Blood Urea Nitrogen 21.7 mg/dL (9.0-27.0); Calcium 8.7 mg/dL (8.7-10.3); Carbon Dioxide 24.4 mmol/L (21.6-31.8); Chloride 106 mmol/L (96-109); Globulin 2.2 g/dL (1.6-3.3); Glucose 117 mg/dL (70-110); Magnesium 1.4 mg/dL (1.5-2.4); Potassium 4.2 mmol/L (3.5-5.5); Sodium 143 mmol/L (135-145); Total Protein 6.4 g/dL (6.2-8.2)
== END | disposition home or self-care (01) ==
LOC: LABWHC1 15:38
PROVIDERS: ATTEND Internal Medicine
DX: R80.9 Proteinuria, unspecified (principal)
CPT/HCPCS: 36415; 80053; 82043; 82570; 83735; 84100; 85025